=== PATIENT | female | born 1975 | race Caucasian/White ===

== ENCOUNTER 2016-08-06 13:58 | Emergency (ER) | payer BC ==
[~2016-08-06] VITALS: Ht 162.6 cm; Wt 77.1 kg
[~2016-08-06 13:58] MED LIST: DIAZ-345 PO; HYDR1TAB66 PO; LEVO20CA PO; NATURE-THROID PO
[2016-08-06] MEDS ORDERED: ESCI20TA45 (14:21)
[2016-08-06 14:30] LABS: BASOPHILS % (AUTO) 1 % (0-10); EOSINOPHILS # (AUTO) 0.1 10^3/uL (0.0-0.3); EOSINOPHILS % (AUTO) 1 % (0-10); LYMPHOCYTES # (AUTO) 2.1 X 10^3 (1.0-4.0); LYMPHOCYTES % (AUTO) 30 % (12-44); MEAN CORPUSCULAR HEMOGLOBIN 30 PG (25-34); MEAN CORPUSCULAR HGB CONC 34 G/DL (32-36); MEAN CORPUSCULAR VOLUME 87 FL (80-99); MEAN PLATELET VOLUME 11.5 FL (7.4-10.4); MONOCYTES # (AUTO) 0.8 X 10^3 (0.0-1.0); MONOCYTES % (AUTO) 11 % (0-12); NEUTROPHILS % (AUTO) 57 % (42-75); PLATELET COUNT 215 10^3/uL (130-400); RED BLOOD COUNT 4.59 10^6/uL (4.35-5.85); RED CELL DISTRIBUTION WIDTH 12.5 % (10.0-14.5)
[2016-08-06 14:41] LABS: ALANINE AMINOTRANSFERASE 34 U/L (0-55); ALBUMIN 4.5 GM/DL (3.2-4.5); ANION GAP 10 MMOL/L (5-14); ASPARTATE AMINO TRANSFERASE 27 U/L (5-34); BILIRUBIN,TOTAL 0.7 MG/DL (0.1-1.0); BLOOD UREA NITROGEN 11 MG/DL (7-18); BUN/CREATININE RATIO 15 (0-20); CALCIUM 9.2 MG/DL (8.5-10.1); CARBON DIOXIDE 25 MMOL/L (21-32); CHLORIDE 104 MMOL/L (98-107); CREATININE SERUM 0.73 MG/DL (0.60-1.30); GFR ESTIMATED > 60; GLUCOSE 85 MG/DL (70-105); HEMOLYSIS 8 (-100-29); ICTERUS 0.7 (-100-1.9); LIPEMIA 9 (-100-49); POTASSIUM 4.2 MMOL/L (3.6-5.0); SODIUM 139 MMOL/L (135-145); TOTAL PROTEIN 7.3 GM/DL (6.4-8.2); hs C REACTIVE PROTEIN 0.02 MG/DL (0.00-0.50)
[2016-08-06] MEDS ORDERED: NS IV 1000 ML 1,000 ML IV ONE (14:50)
--- NOTE | 2016-08-06 14:56 | ED GU-Female ---
General Chief Complaint: Abdominal/GI Problems Stated Complaint: R SIDE PAIN/BACK PAIN Nursing Triage Note: SENT OVER FROM URGENT CARE. COMPLAINS OF RLQ PAIN STARTING YESTERDAY. Nursing Sepsis Screen: No Definite Risk Source: patient, spouse Exam Limitations: no limitations History of Present Illness Time seen by provider: 14:36 Initial Comments 40-year-old female patient presents to the emergency department with complaints of periumbilical and left lower quadrant pain beginning yesterday. Reports last night pain localized to the right lower quadrant. Does report poor appetite, but denies nausea or vomiting. States pain radiates into the low back bilaterally. Denies a history of kidney stones. Timing/Duration: yesterday, getting worse Severity/Quality: aching, sharp Location: LLQ, periumbilical Radiation: RLQ, back Activities at Onset: none Prior Genitourinary Problems: none Sexual [place] History: less than 2 months ago, single partner Modifying Factors: Worsens With Movement, Worsens With Palpation, Worsens With Other (standing upright, laughing) Allergies and Home Medications Allergies Coded Allergies: No Known Drug Allergies (Unverified , 07/15/13) Home Medications Diazepam 5 Mg Tablet, 5 EACH PO TID PRN, (Reported) Escitalopram Oxalate 20 Mg Tablet, #30 (Reported) Hyoscyamine Sulfate 0.125 Mg Tab.subl, 0.125 MG SL Q6H PRN for SPASMS, #14 Ref 0 Prescribed by: OWEN OCASIO on 08/06/161727 Ondansetron 8 Mg Tab.rapdis, 8 MG PO Q6H PRN for NAUSEA/VOMITING-1ST LINE, #10 Ref 0 Prescribed by: OWEN OCASIO on 08/06/168 Constitutional: chills, No fever Respiratory: No cough, No short of breath Cardiovascular: No chest pain, No syncope Gastrointestinal: RLQ, LLQ, abdominal pain, constipation, No diarrhea, loss of appetite, nausea, No vomiting Genitourinary: dysuria, denies frequency, denies flank pain, denies hematuria Musculoskeletal: back pain ((low back pain)) Skin: no symptoms reported Psychiatric/Neurological: No Symptoms Reported All Other Systemes Reviewed Negative Unless Noted: Yes (Negative excepted noted.) Past Jthewcw-Ipwfbc-Srubbo Hx Patient Social History Alcohol Use: Occasionally Uses Recreational Drug Use: No Smoking Status: Never a Smoker Recent Foreign Travel: No Contact w/Someone Who Travel: No Recent Infectious Disease Expo: No Surgeries HX Surgeries: Yes Surgeries: Gallbladder, Hysterectomy, Tonsillectomy Respiratory Hx Respiratory Disorders: No Cardiovascular Hx Cardiac Disorders: Yes Neurological Hx Neurological Disorders: No 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 System Hx 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 Disorders: No [employer] History: Hysterectomy Genitourinary Hx Genitourinary Disorders: No Gastrointestinal Hx Gastrointestinal Disorders: No Gastrointestinal Disorders: Chronic Constipation, Hemorrhoids Musculoskeletal Hx Musculoskeletal Disorders: No Endocrine Hx Endocrine Disorders: Yes (THYROID NODULES) HEENT HX ENT Disorders: No Cancer Hx Cancer: No Psychosocial Hx Psychiatric Problems: Yes Behavioral Health Disorders: Anxiety, Depression Reviewed Nursing Assessment Reviewed/Agree w Nursing PMH: Yes Family Medical History Significant Family History: No Pertinent Family Hx Physical Exam Vital Signs Vital Sign - Last 12Hours 08/06/16 14:00 Temp 98.0 Pulse 63 Resp 18 B/P (MAP) 134/94 Pulse Ox 95 Capillary Refill : Less Than 3 Seconds General Appearance: WD/WN, no apparent distress HEENT: PERRL/EOMI, pharynx normal Neck: supple, normal inspection Cardiovascular: regular rate, rhythm, no murmur Respiratory: lungs clear, normal breath sounds, no respiratory distress Gastrointestinal: normal bowel sounds, soft, no organomegaly, No distended, guarding (BLQ), rebound (RLQ), tenderness (BLQ with greatest tenderness in the RLQ), other ((+) psoas sign, rebound tenderness, and rovsing sign.) Back: normal inspection, no CVA tenderness Extremities: normal capillary refill Neurologic/Psychiatric: alert, normal mood/affect, oriented x 3 Skin: normal color, warm/dry Progress/Results/Core Measures Results/Orders Lab Results Laboratory Tests Test 08/06/16 14:10 08/06/16 14:55 Range/Units White Blood Count 7.0 4.3-11.0 10^3/uL Red Blood Count 4.59 4.35-5.85 10^6/uL Hemoglobin 13.6 11.5-16.0 G/DL Hematocrit 40 35-52 % Mean Corpuscular Volume 87 80-99 FL Mean Corpuscular Hemoglobin 30 25-34 PG Mean Corpuscular Hemoglobin Concent 34 32-36 G/DL Red Cell Distribution Width 12.5 10.0-14.5 % Platelet Count 215 130-400 10^3/uL Mean Platelet Volume 11.5 H 7.4-10.4 FL Neutrophils (%) (Auto) 57 42-75 % Lymphocytes (%) (Auto) 30 12-44 % Monocytes (%) (Auto) 11 0-12 % Eosinophils (%) (Auto) 1 0-10 % Basophils (%) (Auto) 1 0-10 % Neutrophils # (Auto) 4.0 1.8-7.8 X 10^3 Lymphocytes # (Auto) 2.1 1.0-4.0 X 10^3 Monocytes # (Auto) 0.8 0.0-1.0 X 10^3 Eosinophils # (Auto) 0.1 0.0-0.3 10^3/uL Basophils # (Auto) 0.0 0.0-0.1 10^3/uL Sodium Level 139 135-145 MMOL/L Potassium Level 4.2 3.6-5.0 MMOL/L Chloride Level 104 98-107 MMOL/L Carbon Dioxide Level 25 21-32 MMOL/L Anion Gap 10 5-14 MMOL/L Blood Urea Nitrogen 11 7-18 MG/DL Creatinine 0.73 0.60-1.30 MG/DL Estimat Glomerular Filtration Rate > 60 BUN/Creatinine Ratio 15 0-20 Glucose Level 85 70-105 MG/DL Calcium Level 9.2 8.5-10.1 MG/DL Total Bilirubin 0.7 0.1-1.0 MG/DL Aspartate Amino Transf (AST/SGOT) 27 5-34 U/L Alanine Aminotransferase (ALT/SGPT) 34 0-55 U/L Alkaline Phosphatase 59 40-136 U/L C-Reactive Protein High Sensitivity 0.02 0.00-0.50 MG/DL Total Protein 7.3 6.4-8.2 GM/DL Albumin 4.5 3.2-4.5 GM/DL Urine Color YELLOW Urine Clarity CLEAR Urine pH 6 5-9 Urine Specific [place] 1.010 L 1.016-1.022 Urine Protein NEGATIVE NEGATIVE Urine Glucose (UA) NEGATIVE NEGATIVE Urine Ketones NEGATIVE NEGATIVE Urine Nitrite NEGATIVE NEGATIVE Urine Bilirubin NEGATIVE NEGATIVE Urine Urobilinogen NORMAL NORMAL MG/DL Urine Leukocyte Esterase NEGATIVE NEGATIVE Urine RBC (Auto) NEGATIVE NEGATIVE Urine RBC NONE /HPF Urine WBC NONE /HPF Urine Squamous Epithelial Cells 2-5 /HPF Urine Crystals NONE /LPF Urine Bacteria NEGATIVE /HPF Urine Casts NONE /LPF Urine Mucus NEGATIVE /LPF Urine Culture Indicated NO My Orders Orders - OWEN OCASIO Saline Lock/Iv-Start (08/06/16 14:24) Cbc With Automated Diff (08/06/16 14:24) Comprehensive Metabolic Panel (08/06/16 14:24) Hs C Reactive Protein (08/06/16 14:24) Ua Culture If Indicated (08/06/16 14:24) Ct Abd/Pelv W (Appendicitis) (08/06/16 14:50) Ondansetron Injection (Zofran Injectio (08/06/16 15:00) Ns Iv 1000 Ml (Sodium Chloride 0.9%) (08/06/16 14:50) Iohexol Injection (Omnipaque 350 Mg/Ml 1 (08/06/16 15:00) Ns (Ivpb) (Sodium Chloride 0.9% Ivpb Bag (08/06/16 15:00) Medications Given in ED Vital Signs/I&O Vital Sign - Last 12Hours 08/06/16 17:39 Temp 98.7 Pulse 62 Resp 16 Pulse Ox 98 Blood Pressure Mean: 107 Diagnostic Imaging Diagonstic Imaging: CT Plain Films/CT/US/NM/MRI: abdomen, pelvis Comments FINDINGS: The appendix was visualized and is not abnormally thickened. There is no distortion of the periappendiceal fat to suggest appendicitis either. There is a fair amount of fecal material in the AC and transverse colon and there is a large collection of fecal material in the rectosigmoid portion of the colon. The uterus is surgically absent, as is the gallbladder. The urinary bladder is grossly unremarkable. The liver, spleen, pancreas, adrenals, kidneys, aorta and inferior vena cava are unremarkable for an acute abnormality. The stomach is partially filled with fluid and consequently difficult to assess. The lung bases are clear. The bone windows shows no evidence for a fracture or for a destructive lesion. There is a benign appearing 1.1 cm cyst along the lateral aspect of the junction of the left femoral head and neck. There is mild curvature of the lumbar spine, convexed to the left. IMPRESSION: 1. There is no evidence for an acute abnormality of the abdomen or pelvis. In particular, there is no sign of appendicitis. 2. There is a fair amount of fecal material in the ascending and transverse colon and a large collection of fecal material in the rectosigmoid portion of the colon. 3. The uterus and gallbladder are surgically absent. Dictated on workstation # [id number] Reviewed: Reviewed by Me (radiology report reviewed by me.) Departure Communication Progress Notes Laboratory and diagnostic findings discussed with the patient. Patient reports feeling better with medications and IV fluids. Plan for discharge to home. Patient instructed to follow-up with her primary care physician for recheck. Return precautions were discussed with the patient as described in the discharge instructions of this report. Patient voices understanding and agrees with the treatment plan. Impression Impression: Primary Impression: Abdominal pain Qualified Codes: R10.30 - Lower abdominal pain, unspecified Additional Impression: Constipation Qualified Codes: K59.00 - Constipation, unspecified Disposition: HOME, SELF-CARE Condition: Improved Departure-Patient Inst. Decision time for Depature: 17:26 Referrals: MELANIE ACOSTA BRETT D DO JENKINS, XAVIER M MD KIDO, TAKAAKI MD MANZER, JONATHAN L MD (PCP/Family) Primary Care Physician Patient Instructions: Constipation, Adult (DC), Acute Abdomen (Belly Pain), Adult (DC) Add. Discharge Instructions: All discharge instructions reviewed with patient and/or family. Voiced understanding. Medications as instructed. Colace stool softener over-the- counter as directed. Metamucil, Citrucel, or Benefiber [id number] as directed. MiraLAX 17 g mixed with 8 ounces of fluids by mouth twice daily for 3 days then at bedtime as needed for constipation. Drink plenty of fluids. Follow-up with your family practitioner for recheck and possible need for outpatient colonoscopy. Call for appointment time. Return to the emergency department for worsened symptoms or any other concerns. Scripts Ondansetron (Ondansetron Odt) 8 Mg Tab.rapdis 8 MG PO Q6H Y for NAUSEA/VOMITING-1ST LINE, #10 TAB 0 Refills Prov: OWEN OCASIO 08/06/16 Hyoscyamine Sulfate (Levsin-Sl) 0.125 Mg Tab.subl 0.125 MG SL Q6H Y for SPASMS, #14 TAB 0 Refills Prov: OWEN OCASIO 08/06/16 OWEN OCASIO Aug 06, 2016 14:56
[2016-08-06] MEDS ORDERED: NS 100 ML (IVPB) BAG IV ONE (15:00)
[2016-08-06] MEDS ORDERED: ONDANSETRON 4 MG/2 ML (SDV) Z0FRAN IVP ONE (15:00)
[2016-08-06] MEDS ORDERED: IOHEXOL 350 MG/ML 100 ML (OMNIPAQUE 350) VIAL IV ONE (15:00)
[2016-08-06 15:05] LABS: BILIRUBIN,URINE NEGATIVE (NEGATIVE); KETONES,URINE NEGATIVE (NEGATIVE); LEUKOCYTE ESTERASE ,URINE NEGATIVE (NEGATIVE); NITRITE,URINE NEGATIVE (NEGATIVE); PH,URINE 6 (5-9); PROTEIN,URINE NEGATIVE (NEGATIVE); UROBILINOGEN,URINE NORMAL (NORMAL)
--- NOTE | 2016-08-06 15:49 | Diagnostic Imaging Report ---
PROCEDURE: CT abdomen and pelvis with contrast, rule out appendicitis. TECHNIQUE: Multiple contiguous axial images were obtained through the abdomen and pelvis after the administration of intravenous contrast. INDICATION: Right-sided abdominal pain. COMPARISON: There are no prior studies available for comparison. FINDINGS: The appendix was visualized and is not abnormally thickened. There is no distortion of the periappendiceal fat to suggest appendicitis either. There is a fair amount of fecal material in the AC and transverse colon and there is a large collection of fecal material in the rectosigmoid portion of the colon. The uterus is surgically absent, as is the gallbladder. The urinary bladder is grossly unremarkable. The liver, spleen, pancreas, adrenals, kidneys, aorta and inferior vena cava are unremarkable for an acute abnormality. The stomach is partially filled with fluid and consequently difficult to assess. The lung bases are clear. The bone windows shows no evidence for a fracture or for a destructive lesion. There is a benign appearing 1.1 cm cyst along the lateral aspect of the junction of the left femoral head and neck. There is mild curvature of the lumbar spine, convexed to the left. IMPRESSION: 1. There is no evidence for an acute abnormality of the abdomen or pelvis. In particular, there is no sign of appendicitis. 2. There is a fair amount of fecal material in the ascending and transverse colon and a large collection of fecal material in the rectosigmoid portion of the colon. 3. The uterus and gallbladder are surgically absent. Dictated by: Dictated on workstation # [id number]
[2016-08-06] MEDS ORDERED: HYOS0.1283 SL (17:28)
[2016-08-06] MEDS ORDERED: ONDA8TAB13 PO (17:28)
[2016-08-06 17:39] VITALS: BP 129/89
== END 2016-08-06 17:39 | disposition home or self-care (01) ==
LOC: EDUNIT# 13:58 → ER 14:00
DX: K59.09 Other constipation (principal); Z87.19 Personal history of other diseases of the digestive system; Z98.890 Other specified postprocedural states
CPT/HCPCS: 36415; 74177; 80053; 81000; 85025; 86141

== ENCOUNTER 2016-08-22 05:42 | Outpatient (CLI) | payer BC ==
[~2016-08-22] VITALS: Ht 162.6 cm; Wt 77.1 kg
[~2016-08-22 05:42] MED LIST changes: +ESCI20TA45 PO; +HYOS0.1283 SL; +ONDA8TAB13 PO
== END 2016-08-22 11:05 ==
LOC: PREOP 05:42
PROVIDERS: ATTEND Surgery
DX: Z01.818 Encounter for other preprocedural examination (principal); K92.1 Melena

== ENCOUNTER 2016-08-25 07:23 | Day surgery (SDC) | payer BC ==
[~2016-08-25] VITALS: Ht 162.6 cm; Wt 77.1 kg
--- OUTSIDE RECORDS SUMMARY | 2016-08-25 07:28 | XMS REPORT | Continuity of Care Document ---
Author Author [facility] Address Unknown Phone Unavailable Allergies Active Description Code Type Severity Reaction Onset Reported/Identified Relationship to Patient Clinical Status Yes No Known Drug Allergies [id number] Drug Allergy Unknown N/ A 07/15/2013 Medications Problems Date Dx Coded Attending Type Code Diagnosis Diagnosed By 08/27/2007 296.89 Mo Bipolar Ii 08/27/2007 BALA BIRD APRN 296.89 Mo Bipolar Ii 08/27/2007 296.89 Mo Bipolar Ii 08/27/2007 BETH RIVERA DO 296.89 Mo Bipolar Ii 08/27/2007 BETH RIVERA DO 296.89 Mo Bipolar Ii 08/27/2007 BETH RIVERA DO 296.89 Mo Bipolar Ii 08/29/2007 300.00 Anxiety 08/29/2007 BALA BIRD APRN 300.00 Anxiety 08/29/2007 300.00 Anxiety 08/29/2007 BETH RIVERA DO K 300.00 Anxiety 08/29/2007 BETH RIVERA DO K 300.00 Anxiety 08/29/2007 RICKEY RIVERA DOA K 300.00 Anxiety 10/15/2007 465.9 Upper Respiratory Infection 10/15/2007 BALA BIRD APRN 465.9 Upper Respiratory Infection 10/15/2007 465.9 Upper Respiratory Infection 10/15/2007 BETH RIVERA DO K 465.9 Upper Respiratory Infection 10/15/2007 RICKEY RIVERA DOA K 465.9 Upper Respiratory Infection 10/15/2007 RICKEY RIVERA DOA K 465.9 Upper Respiratory Infection 11/16/2007 278.02 OVERWEIGHT 11/16/2007 296.90 EPISODIC MOOD DISORDERS 11/16/2007 BALA BIRD APRN 278.02 OVERWEIGHT 11/16/2007 BALA BIRD APRN 296.90 EPISODIC MOOD DISORDERS 11/16/2007 278.02 OVERWEIGHT 11/16/2007 296.90 EPISODIC MOOD DISORDERS 11/16/2007 BETH RIVERA DO 278.02 OVERWEIGHT 11/16/2007 RIVERA DO, BETH K 296.90 EPISODIC MOOD DISORDERS 11/16/2007 RIVERA DO, BETH K 278.02 OVERWEIGHT 11/16/2007 RIVERA DO, BETH K 296.90 EPISODIC MOOD DISORDERS 11/16/2007 RIVERA DO, BETH K 278.02 OVERWEIGHT 11/16/2007 RIVERA DO, BETH K 296.90 EPISODIC MOOD DISORDERS 12/13/2007 477.9 ALLERGIC RHINITIS 12/13/2007 PELON BALA TRACEY L 477.9 ALLERGIC RHINITIS 12/13/2007 477.9 ALLERGIC RHINITIS 12/13/2007 RIVERA DO, BETH K 477.9 ALLERGIC RHINITIS 12/13/2007 RIVERA DO, BETH K 477.9 ALLERGIC RHINITIS 12/13/2007 RIVERA DO, BETH K 477.9 ALLERGIC RHINITIS 12/20/2007 070.54 Hepatitis C Chronic 12/20/2007 780.79 FATIGUE 12/20/2007 995.20 Unspecified Adverse Effect Of Unspecified Drug Medicinal And Biological Substance 12/20/2007 BALA BIRD APRN L 070.54 Hepatitis C Chronic 12/20/2007 BALA BIRD APRN L 780.79 FATIGUE 12/20/2007 TWINBALA MONTOYA APRN L 995.20 Unspecified Adverse Effect Of Unspecified Drug Medicinal And Biological Substance 12/20/2007 070.54 Hepatitis C Chronic 12/20/2007 780.79 FATIGUE 12/20/2007 995.20 Unspecified Adverse Effect Of Unspecified Drug Medicinal And Biological Substance 12/20/2007 RIVERA DO, BETH K 070.54 Hepatitis C Chronic 12/20/2007 RIVERA DO, BETH K 780.79 FATIGUE 12/20/2007 RIVERA DO, BETH K 995.20 Unspecified Adverse Effect Of Unspecified Drug Medicinal And Biological Substance 12/20/2007 RIVERA DO, BETH K 070.54 Hepatitis C Chronic 12/20/2007 RIVERA DO, BETH K 780.79 FATIGUE 12/20/2007 RIVERA DO, BETH K 995.20 Unspecified Adverse Effect Of Unspecified Drug Medicinal And Biological Substance 12/20/2007 RIVERA DO, BETH K 070.54 Hepatitis C Chronic 12/20/2007 RIVERA DO, BETH K 780.79 FATIGUE 12/20/2007 RIVERA DO, BETH K 995.20 Unspecified Adverse Effect Of Unspecified Drug Medicinal And Biological Substance 01/07/2008 599.0 Urinary Tract Infection 01/07/2008 PELON GARCIAFlori BALA L 599.0 Urinary Tract Infection 01/07/2008 599.0 Urinary Tract Infection 01/07/2008 RICKEY RIVERA DOA K 599.0 Urinary Tract Infection 01/07/2008 RIVERA DO BETH K 599.0 Urinary Tract Infection 01/07/2008 RIVERA DO BETH K 599.0 Urinary Tract Infection 01/22/2008 296.80 MO BIPOLAR NOS 01/22/2008 V58.69 taking female hormones - long-term tamoxifen use 01/22/2008 PELON GARCIAFlori BALA L 296.80 MO BIPOLAR NOS 01/22/2008 PELON GARCIAFlori BALA L V58.69 taking female hormones - long-term tamoxifen use 01/22/2008 296.80 MO BIPOLAR NOS 01/22/2008 V58.69 taking female hormones - long-term tamoxifen use 01/22/2008 NICOLE MCKEE BETH K 296.80 MO BIPOLAR NOS 01/22/2008 NICOLE MCKEE BETH K V58.69 taking female hormones - long-term tamoxifen use 01/22/2008 RIVERA DO BETH K 296.80 MO BIPOLAR NOS 01/22/2008 RIVERA DO BETH K V58.69 taking female hormones - long-term tamoxifen use 01/22/2008 NICOLE DO BETH K 296.80 MO BIPOLAR NOS 01/22/2008 RIVERA DO BETH K V58.69 taking female hormones - long-term tamoxifen use 03/03/2008 300.4 DESPONDENCY 03/03/2008 BALA BIRD APRN L 300.4 DESPONDENCY 03/03/2008 300.4 DESPONDENCY 03/03/2008 RIVERA DO BETH K 300.4 DESPONDENCY 03/03/2008 RIVERA DO BETH K 300.4 DESPONDENCY 03/03/2008 RIVERA DO BETH K 300.4 DESPONDENCY 03/12/2008 307.42 INSOMNIA DUE TO STRESS 03/12/2008 BALA BIRD APRN L 307.42 INSOMNIA DUE TO STRESS 03/12/2008 307.42 INSOMNIA DUE TO STRESS 03/12/2008 RICKEY RIVERA DOA K 307.42 INSOMNIA DUE TO STRESS 03/12/2008 RICKEY RIVERA DOA K 307.42 INSOMNIA DUE TO STRESS 03/12/2008 NICOLE MCKEE BETH K 307.42 INSOMNIA DUE TO STRESS 04/03/2008 616.10 Vaginitis 04/03/2008 PELON BALA TRACEY 616.10 Vaginitis 04/03/2008 616.10 Vaginitis 04/03/2008 RIVERA DO BETH K 616.10 Vaginitis 04/03/2008 RIVERA DO, BETH K 616.10 Vaginitis 04/03/2008 RIVERA DO, BETH K 616.10 Vaginitis 05/14/2008 301.13 CYCLOTHYMIC DISORDER 05/14/2008 PELON BALA TRACEY 301.13 CYCLOTHYMIC DISORDER 05/14/2008 301.13 CYCLOTHYMIC DISORDER 05/14/2008 RIVERA DO BETH K 301.13 CYCLOTHYMIC DISORDER 05/14/2008 RIVERA DO BETH K 301.13 CYCLOTHYMIC DISORDER 05/14/2008 RIVERA DO BETH K 301.13 CYCLOTHYMIC DISORDER 05/19/2008 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 05/19/2008 PELON BALA TRACEY 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 05/19/2008 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 05/19/2008 RIVERA DO BETH K 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 05/19/2008 RIVERA DO, BETH K 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 05/19/2008 RIVERA DO, BETH K 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 07/30/2008 627.2 Menopause Symptomatic 07/30/2008 627.9 Menopausal Disorder 07/30/2008 724.2 LUMBAGO 07/30/2008 BALA BIRD APRN 627.2 Menopause Symptomatic 07/30/2008 BALA BIRD APRN 627.9 Menopausal Disorder 07/30/2008 TWINBALA MONTOYA APRN 724.2 LUMBAGO 07/30/2008 627.2 Menopause Symptomatic 07/30/2008 627.9 Menopausal Disorder 07/30/2008 724.2 LUMBAGO 07/30/2008 RIVERA DO, BETH K 627.2 Menopause Symptomatic 07/30/2008 RIVERA DO, BETH K 627.9 Menopausal Disorder 07/30/2008 RIVERA DO, BETH K 724.2 LUMBAGO 07/30/2008 RIVERA DO, BETH K 627.2 Menopause Symptomatic 07/30/2008 RIVERA DO, BETH K 627.9 Menopausal Disorder 07/30/2008 RIVERA DO, BETH K 724.2 LUMBAGO 07/30/2008 RIVERA DO, BETH K 627.2 Menopause Symptomatic 07/30/2008 RIVERA DO, BETH K 627.9 Menopausal Disorder 07/30/2008 RIVERA DO, BETH K 724.2 LUMBAGO 10/08/2008 719.46 joint pain, localized in the knee 10/08/2008 BALA BIRD APRN 719.46 joint pain, localized in the knee 10/08/2008 719.46 joint pain, localized in the knee 10/08/2008 RIVERA DO, BETH K 719.46 joint pain, localized in the knee 10/08/2008 RIVERA DO, BETH K 719.46 joint pain, localized in the knee 10/08/2008 RIVERA DO, BETH K 719.46 joint pain, localized in the knee 12/06/2008 388.71 Otogenic Pain 12/06/2008 BALA BIRD APRN 388.71 Otogenic Pain 12/06/2008 388.71 Otogenic Pain 12/06/2008 NICOLE MCKEE BETH K 388.71 Otogenic Pain 12/06/2008 RIVERA DO, BETH K 388.71 Otogenic Pain 12/06/2008 RIVERA DO, BETH K 388.71 Otogenic Pain 01/23/2009 V07.4 HORMONE REPLACEMENT THERAPY (POSTMENOPAUSAL) 01/23/2009 BALA BIRD APRN V07.4 HORMONE REPLACEMENT THERAPY ( POSTMENOPAUSAL) 01/23/2009 V07.4 HORMONE REPLACEMENT THERAPY (POSTMENOPAUSAL) 01/23/2009 RICKEY RIVERA DOA K V07.4 HORMONE REPLACEMENT THERAPY (POSTMENOPAUSAL) 01/23/2009 RIVERA DO BETH K V07.4 HORMONE REPLACEMENT THERAPY (POSTMENOPAUSAL) 01/23/2009 RIVERA , BETH K V07.4 HORMONE REPLACEMENT THERAPY (POSTMENOPAUSAL) 03/12/2009 799.81 DECREASED LIBIDO 03/12/2009 BALA BIRD APRN 799.81 DECREASED LIBIDO 03/12/2009 799.81 DECREASED LIBIDO 03/12/2009 RICKEY RIVERA DOA K 799.81 DECREASED LIBIDO 03/12/2009 RIVERA RICKEY MCKEEA K 799.81 DECREASED LIBIDO 03/12/2009 NICOLE MCKEE BETH K 799.81 DECREASED LIBIDO 05/28/2009 251.2 Hypoglycemia 05/28/2009 307.81 Tension Headache 05/28/2009 PELON GARCIAFlori BALA L 251.2 Hypoglycemia 05/28/2009 PELON GARCIAFlori BALA L 307.81 Tension Headache 05/28/2009 251.2 Hypoglycemia 05/28/2009 307.81 Tension Headache 05/28/2009 RIVERA DO, BETH K 251.2 Hypoglycemia 05/28/2009 RIVERA DO, BETH K 307.81 Tension Headache 05/28/2009 RIVERA DO, BETH K 251.2 Hypoglycemia 05/28/2009 RIVERA DO, BETH K 307.81 Tension Headache 05/28/2009 RIVERA DO, BETH K 251.2 Hypoglycemia 05/28/2009 RIVERA DO, BETH K 307.81 Tension Headache 07/29/2010 611.71 Breast Pain 07/29/2010 V16.3 FAM HX CANCER, BREAST 07/29/2010 TWINBALA MONTOYA APRN 611.71 Breast Pain 07/29/2010 TWINBALA MONTOYA APRN V16.3 FAM HX CANCER, BREAST 07/29/2010 611.71 Breast Pain 07/29/2010 V16.3 FAM HX CANCER, BREAST 07/29/2010 RIVERA DO, BETH K 611.71 Breast Pain 07/29/2010 RIVERA DO, BETH K V16.3 FAM HX CANCER, BREAST 07/29/2010 RIVERA DO, BETH K 611.71 Breast Pain 07/29/2010 RIVERA DO, BETH K V16.3 FAM HX CANCER, BREAST 07/29/2010 RIVERA DO, BETH K 611.71 Breast Pain 07/29/2010 RIVERA DO, BETH K V16.3 FAM HX CANCER, BREAST 05/26/2011 V65.3 Dietary Counseling Pertaining To Obesity 05/26/2011 V69.0 being sedentary 05/26/2011 BALA BIRD APRN V65.3 Dietary Counseling Pertaining To Obesity 05/26/2011 BALA BIRD APRN V69.0 being sedentary 05/26/2011 V65.3 Dietary Counseling Pertaining To Obesity 05/26/2011 V69.0 being sedentary 05/26/2011 RIVERA DO, BETH K V65.3 Dietary Counseling Pertaining To Obesity 05/26/2011 RIVERA DO, BETH K V69.0 being sedentary 05/26/2011 RIVERA DO, BETH K V65.3 Dietary Counseling Pertaining To Obesity 05/26/2011 RIVERA DO, BETH K V69.0 being sedentary 05/26/2011 RIVERA DO, BETH K V65.3 Dietary Counseling Pertaining To Obesity 05/26/2011 RIVERA DO, BETH K V69.0 being sedentary 08/09/2011 311 DEPRESSION 08/09/2011 338.29 CHRONIC PAIN 08/09/2011 401.9 ESSENTIAL HYPERTENSION 08/09/2011 EATLINDSAY SECURITY THREAT ANALYSTBALA Ruby L 311 DEPRESSION 08/09/2011 EATON SECURITY THREAT ANALYST, BALA L 338.29 CHRONIC PAIN 08/09/2011 EATON SECURITY THREAT ANALYST, BALA L 401.9 ESSENTIAL HYPERTENSION 08/09/2011 311 DEPRESSION 08/09/2011 338.29 CHRONIC PAIN 08/09/2011 401.9 ESSENTIAL HYPERTENSION 08/09/2011 RIVERA DO, BETH K 311 DEPRESSION 08/09/2011 RIVERA DO, BETH K 338.29 CHRONIC PAIN 08/09/2011 RIVERA DO, BETH K 401.9 ESSENTIAL HYPERTENSION 08/09/2011 RIVERA DO, BETH K 311 DEPRESSION 08/09/2011 RIVERA DO, BETH K 338.29 CHRONIC PAIN 08/09/2011 RIVERA DO, BETH K 401.9 ESSENTIAL HYPERTENSION 08/09/2011 RIVERA DO, BETH K 311 DEPRESSION 08/09/2011 RIVERA DO, BETH K 338.29 CHRONIC PAIN 08/09/2011 RIVERA DO, BETH K 401.9 ESSENTIAL HYPERTENSION 09/02/2011 455.6 Hemorrhoids Nos 09/02/2011 578.1 Hematochezia 09/02/2011 V72.31 Industrial Technologist Exam, Routine 09/02/2011 BALA BIRD APRN L 455.6 Hemorrhoids Nos 09/02/2011 EATBALA MONTOYA APRN L 578.1 Hematochezia 09/02/2011 BALA BIRD APRN L V72.31 Industrial Technologist Exam, Routine 09/02/2011 455.6 Hemorrhoids Nos 09/02/2011 578.1 Hematochezia 09/02/2011 V72.31 Industrial Technologist Exam, Routine 09/02/2011 RIVERA DO, BETH K 455.6 Hemorrhoids Nos 09/02/2011 RIVERA DO, BETH K 578.1 Hematochezia 09/02/2011 RIVERA DO, BETH K V72.31 Industrial Technologist Exam, Routine 09/02/2011 RIVERA DO, BETH K 455.6 Hemorrhoids Nos 09/02/2011 RIVERA DO, BETH K 578.1 Hematochezia 09/02/2011 RIVERA DO, BETH K V72.31 Industrial Technologist Exam, Routine 09/02/2011 RIVERA DO, BETH K 455.6 Hemorrhoids Nos 09/02/2011 RIVERA DO, BETH K 578.1 Hematochezia 09/02/2011 RIVERA DO, BETH K V72.31 Industrial Technologist Exam, Routine 10/13/2011 NODX NO DIAGNOSIS 10/13/2011 BALA BIRD APRN NODX NO DIAGNOSIS 10/13/2011 NODX NO DIAGNOSIS 10/13/2011 RIVERA DO, BETH K NODX NO DIAGNOSIS 10/13/2011 RIVERA DO, BETH K NODX NO DIAGNOSIS 10/13/2011 RIVERA DO, BETH K NODX NO DIAGNOSIS 01/18/2012 796.2 ELEVATED BLOOD PRESSURE READING WITHOUT DIAGNOSIS OF HYPERTENSION 01/18/2012 BALA BIRD APRN 796.2 ELEVATED BLOOD PRESSURE READING WITHOUT DIAGNOSIS OF HYPERTENSION 01/18/2012 796.2 ELEVATED BLOOD PRESSURE READING WITHOUT DIAGNOSIS OF HYPERTENSION 01/18/2012 RIVERA DO, BETH K 796.2 ELEVATED BLOOD PRESSURE READING WITHOUT DIAGNOSIS OF HYPERTENSION 01/18/2012 RIVERA DO, BETH K 796.2 ELEVATED BLOOD PRESSURE READING WITHOUT DIAGNOSIS OF HYPERTENSION 01/18/2012 RIVERA DO, BETH K 796.2 ELEVATED BLOOD PRESSURE READING WITHOUT DIAGNOSIS OF HYPERTENSION 05/03/2012 372.30 CONJUNCTIVITIS UNSPECIFIED 05/03/2012 RIVERA DO, BETH K 372.30 CONJUNCTIVITIS UNSPECIFIED 05/03/2012 RIVERA DO, BETH K 372.30 CONJUNCTIVITIS UNSPECIFIED 05/03/2012 RIVERA DO, BEHT K 372.30 CONJUNCTIVITIS UNSPECIFIED 02/08/2013 RIVERA DO, BETH K 241.0 NONTOXIC UNINODULAR GOITER 02/08/2013 RIVERA DO, BETH K 799.24 EMOTIONAL LABILITY 02/08/2013 RIVERA DO, BETH K 241.0 NONTOXIC UNINODULAR GOITER 02/08/2013 RIVERA DO, BETH K 799.24 EMOTIONAL LABILITY 03/28/2013 RIVERA DO, BETH K 268.9 VITAMIN D DEFICIENCY 07/15/2013 Ot 300.00 ANXIETY STATE NOS 07/15/2013 Ot 786.05 SHORTNESS OF BREATH 08/10/2013 MACIEJ BLEVINS SECURITY THREAT ANALYST Ot 311 DEPRESSIVE DISORDER NEC 08/10/2013 MACIEJ BLEVINS APRN Ot 780.79 OTH MALAISE FATIGUE 08/06/2016 NINFA GALICIA OWEN Shawanda Ot K59.09 OTHER CONSTIPATION 08/06/2016 NINFA GALICIA OWEN L Ot R10.31 RIGHT LOWER QUADRANT PAIN 08/06/2016 OWEN ADORNO Ot Z87.19 PERSONAL HISTORY OF OTHER DISEASES OF TH 08/06/2016 NINFA GALICIA OWEN Shawanda Ot Z98.890 OTHER SPECIFIED POSTPROCEDURAL STATES 08/09/2016 NINFA GALICIA OWEN L Ot K59.09 OTHER CONSTIPATION 08/09/2016 NINFA GALICIA OWEN L Ot R10.31 RIGHT LOWER QUADRANT PAIN 08/09/2016 NINFA GALICIA OWEN L Ot Z87.19 PERSONAL HISTORY OF OTHER DISEASES OF 08/09/2016 KRISTY ADORNOEN Shawanda Ot Z98.890 OTHER SPECIFIED POSTPROCEDURAL STATES Procedures Code Description Performed By Performed On BLOOD PRESSURE CHECK 10/13/2011 BLOOD PRESSURE CHECK 01/18/2012 71557 STREP A (IN-HOUSE) 02/09/2012 70584 NO CHARGE 2012 51208 THERAPUTIC INJ SQ/IM 02/08/2013 J3420 B12 VITAMIN INJECTION 02/08/2013 46488 ROUTINE VENIPUNCTURE 02/08/2013 41739 CMP 02/08/2013 81904 VITAMIN D 25-HYDROXY (D2,D3, TOTAL) 02/08/2013 85003 VIT B 12 2012 42749 CBC 02/08/2013 THYANA THYROID ANALYZER 02/08/2013 Results Test Result Range Complete blood count (CBC) with automated white blood cell (WBC) differential - 08/06/16 14:10 Blood leukocytes automated count (number/volume) 7.0 10*3/ uL 4.3-11.0 Blood erythrocytes automated count (number/volume) 4.59 10*6 /uL 4.35-5.85 Venous blood hemoglobin measurement (mass/volume) 13.6 g/dL 11.5-16.0 Blood hematocrit (volume fraction) 40 % 35-52 Automated erythrocyte mean corpuscular volume 87 [foz_us] 80-99 Automated erythrocyte mean corpuscular hemoglobin (mass per erythrocyte) 30 pg 25-34 Automated erythrocyte mean corpuscular hemoglobin concentration measurement ( mass/volume) 34 g/dL 32-36 Automated erythrocyte distribution width ratio 12.5 % 10.0-14.5 Automated blood platelet count (count/volume) 215 10*3/uL 130-400 Automated blood platelet mean volume measurement 11.5 [foz_ us] 7.4-10.4 Automated blood neutrophils/100 leukocytes 57 % 42-75 Automated blood lymphocytes/100 leukocytes 30 % 12-44 Blood monocytes/100 leukocytes 11 % 0-12 Automated blood eosinophils/100 leukocytes 1 % 0-10 Automated blood basophils/100 leukocytes 1 % 0-10 Blood neutrophils automated count (number/volume) 4.0 10*3 1.8-7.8 Blood lymphocytes automated count (number/volume) 2.1 10*3 1.0-4.0 Blood monocytes automated count (number/volume) 0.8 10*3 0.0-1.0 Automated eosinophil count 0.1 10*3/uL 0.0-0.3 Automated blood basophil count (count/volume) 0.0 10*3/uL 0.0-0.1 Comprehensive metabolic panel - 08/06/16 14:10 Serum or plasma sodium measurement (moles/volume) 139 mmol/ L 135-145 Serum or plasma potassium measurement (moles/volume) 4.2 mmol/L 3.6-5.0 Serum or plasma chloride measurement (moles/volume) 104 mmol /L 98-107 Carbon dioxide 25 mmol/L 21-32 Serum or plasma anion gap determination (moles/volume) 10 mmol/L 5-14 Serum or plasma urea nitrogen measurement (mass/volume) 11 mg/dL 7-18 Serum or plasma creatinine measurement (mass/volume) 0.73 mg /dL 0.60-1.30 Serum or plasma urea nitrogen/creatinine mass ratio 15 0-20 Serum or plasma creatinine measurement with calculation of estimated glomerular filtration rate > NRG Serum or plasma glucose measurement (mass/volume) 85 mg/dL 70-105 Serum or plasma calcium measurement (mass/volume) 9.2 mg/dL 8.5-10.1 Serum or plasma total bilirubin measurement (mass/volume) 0.7 mg/dL 0.1-1.0 Serum or plasma alkaline phosphatase measurement (enzymatic activity/volume) 59 U/L 40-136 Serum or plasma aspartate aminotransferase measurement (enzymatic activity/ volume) 27 U/L 5-34 Serum or plasma alanine aminotransferase measurement (enzymatic activity/volume ) 34 U/L 0-55 Serum or plasma protein measurement (mass/volume) 7.3 g/dL 6.4-8.2 Serum or plasma albumin measurement (mass/volume) 4.5 g/dL 3.2-4.5 Serum or plasma C reactive protein measurement (mass/volume) - 08/06/16 14:10 Serum or plasma C reactive protein measurement (mass/volume) 0.02 mg/dL 0.00-0.50 Complete urinalysis with reflex to culture - 08/06/16 14:55 Urine color determination YELLOW NRG Urine clarity determination CLEAR NRG Urine pH measurement by test strip 6 5- 9 Specific gravity of urine by test strip 1.010 1.016-1.022 Urine protein assay by test strip, semi-quantitative NEGATIVE NEGATIVE Urine glucose detection by automated test strip NEGATIVE NEGATIVE Erythrocytes detection in urine sediment by light microscopy NEGATIVE NEGATIVE Urine ketones detection by automated test strip NEGATIVE NEGATIVE Urine nitrite detection by test strip NEGATIVE NEGATIVE Urine total bilirubin detection by test strip NEGATIVE NEGATIVE Urine urobilinogen measurement by automated test strip (mass/volume) NORMAL NORMAL Urine leukocyte esterase detection by dipstick NEGATIVE NEGATIVE Automated urine sediment erythrocyte count by microscopy (number/high power field) NONE NRG Automated urine sediment leukocyte count by microscopy (number/high power field ) NONE NRG Bacteria detection in urine sediment by light microscopy NEGATIVE NRG Squamous epithelial cells detection in urine sediment by light microscopy 2-5 NRG Crystals detection in urine sediment by light microscopy NONE NRG Casts detection in urine sediment by light microscopy NONE NRG Mucus detection in urine sediment by light microscopy NEGATIVE NRG Complete urinalysis with reflex to culture NO NRG Encounters ACCT No. Visit Date/Time Discharge Status Pt. Type Provider Facility Loc./Unit Complaint [id number] 03/28/2013 14:16:00 03/28/2013 23: 59:59 [facility] Outpatient BETH RIVERA DO [id number] 02/08/2013 08:55:00 02/08/2013 23: 59:59 [facility] Outpatient BETH IRVERA DO [id number] 12/21/2012 15:45:00 12/21/2012 23: 59:59 [facility] Out[facility] BETH RIVERA DO [id number] 05/03/2012 11:46:00 05/03/2012 23: 59:59 [facility] Outpatient [id number] 02/09/2012 11:49:00 02/09/2012 23: 59:59 [facility] Outpatient BALA BIRD APRN [id number] 01/18/2012 15:00:00 01/18/2012 23: 59:59 [facility] Outpatient
[2016-08-25 07:40] VITALS: BP 111/76
[2016-08-25] MEDS ORDERED: MIDAZOLAM 2 MG/2 ML (VERSED) VIAL ONE (07:40)
[2016-08-25] MEDS ORDERED: proPOfol 200 MG/20 ML (DIPRIVAN) VIAL IV ONE (07:40)
[2016-08-25] MEDS ORDERED: LACTATED RINGERS 1,000 ML IV PRN (07:45)
--- NOTE | 2016-08-25 08:31 | Progress Note-Pre Operative ---
Pre-Operative Progress Note H&P Reviewed The H&P was reviewed, patient examined and no changes noted. Time Seen by Provider: 08:26 Date H&P Reviewed: Aug 25, 2016 Time H&P Reviewed: 08:29 Pre-Operative Diagnosis: Constipation, change in bowel habits, abdominal pain, blood in stool MELANIE ACOSTA DO Aug 25, 2016 08:31
[2016-08-25 08:45] VITALS: BP 119/74
--- NOTE | 2016-08-25 09:22 | Progress Note-Post Operative ---
Post-Operative Progess Note Surgeon (s)/Tax Professional (s) Surgeon MELANIE ACOSTA DO Tax Professional: none Pre-Operative Diagnosis Constipation, change in bowel habits, abdominal pain, blood in stool Post-Operative Diagnosis Same + rectal mass, pending pathology Procedure & Operative Findings Date of Procedure 08/25/16 Procedure Performed/Findings colonoscopy with cold bx Anesthesia Type IV sedation by SAUSAGE LINKER Estimated Blood Loss Estimated blood loss (mL): scant Specimens/Packing Specimens Removed rectal mass biopsy MELANIE ACOSTA DO Aug 25, 2016 09:22
--- NOTE | 2016-08-25 09:24 | Endoscopy Discharge Instruct ---
Endo Procedure/Findings Findings 1.: Internal Hemorrhoids Discharge Instructions - Activity: You might feel a little sleepy until tomorrow. This is due to the medicine you received to relax you. Until tomorrow, you should: NOT drive a car, operate machinery or power tools. NOT drink any alcoholic beverages. NOT make any important decisions or sign importortant papers. Do not return to work until tomorrow, unless otherwise instructed. Resume previous activities tomorrow. Diet: Start by taking liquids. If you tolerate liquids, advance to solid food. Make an appointment for one week, Instructions: 1.: Colonscopy in 10 years Notify Physician - If you experience excessive bleeding, unusual abdominal pain, fever, or chest pain, contact your doctor immediately. [phone] Follow-Up: - I have received and understand the above instructions and will call my doctor if I have any further questions. Patient Signature Date Nurse Signature Other (Relationship) MELANIE ACOSTA DO Aug 25, 2016 09:24
[2016-08-25 09:45] VITALS: BP 119/74
--- NOTE | 2016-08-25 09:56 | OPERATIVE REPORT ---
PROCEDURE PHYSICIAN: MELANIE ACOSTA DATE OF PROCEDURE: 08/25/2016 PREOPERATIVE DIAGNOSES: 1. Constipation . 2. Abdominal pain. 3. Diarrhea. 4. Rectal bleeding. POSTOPERATIVE DIAGNOSES: 1. Constipation. 2. Abdominal pain. 3. Diarrhea. 4. Rectal bleeding. 5. Questionable rectal mass. PROCEDURE: Colonoscopy with biopsy. SURGEON: Dr. Barbara FERRO ASSIST: None. ANESTHESIA: IV sedation by INFORMATICS PHARMACIST. SPECIMEN: Biopsy from rectal mass. BLOOD LOSS: Scant. FLUIDS: Per anesthesia. POSTOPERATIVE: Stable. INDICATION FOR THE PROCEDURE: The patient is a 41 year-old female who has been having some abdominal pain starting in her back. She has also had some new onset of constipation then she has diarrhea. She had a little bit of bleeding in her stool but states this has been going on since her first child. FINDINGS: The patient had basically normal colon, some internal hemorrhoids and one that looked like it stretched up a little bit further so biopsy was performed. PROCEDURE NOTE: After informed consent was obtained, the patient was brought to the endoscopy suite, placed in the left lateral decubitus position. She was administered IV sedation medication. INFORMATICS PHARMACIST monitored her vitals the entire time. The scope was then inserted, pushed all the way to about 150 cm. We did get all the way to the cecum. Took pictures of the appendiceal orifice and then able to get into the terminal ileum. Took a picture in the terminal ileum and then slowly withdrew the scope insufflating circumferentially at the narayan of the cecum, up the ascending colon to the hepatic flexure and then down the transverse colon to the splenic flexure into the descending colon and down in the sigmoid and finally into the rectum, retroflexed in the rectal vault, saw some internal hemorrhoids and then saw one that looked like it traveled up a little bit further than normal. I elected to do a biopsy of this. Biopsy was performed and then the scope was removed. The patient tolerated the procedure and she was recovered in the endoscopy suite. Job ID: [id number] Dictated Date: 08/25/2016 09:26:48 Nut Roaster Helper Date: 08/25/2016 09:47:55 / haile
[2016-08-25 10:10] VITALS: BP 116/71
[2016-08-25 10:15] VITALS: BP 116/71
== END 2016-08-25 10:15 | disposition home or self-care (01) ==
LOC: ENDO 07:23
PROVIDERS: ATTEND Surgery
DX: K62.5 Hemorrhage of anus and rectum (principal); K62.89 Other specified diseases of anus and rectum; K59.00 Constipation, unspecified; R19.7 Diarrhea, unspecified; K64.8 Other hemorrhoids; I10 Essential (primary) hypertension
CPT/HCPCS: 88305

== ENCOUNTER → 2016-10-05 | Outpatient (CLI) | payer BC ==
--- NOTE | 2016-10-05 14:48 | Diagnostic Imaging Report ---
EXAMINATION: Scoliosis INDICATION: Back pain A single AP standing view of the spine was obtained. AP views of the chest and pelvis were also performed. There are no prior studies available for comparison. There is dextroscoliosis of the lower thoracic spine. Using the superior endplate of T5 and the inferior endplate of T12 as landmarks with the Galloway method of analysis the measured angle of scoliosis is 23 degrees + or -2 to 3 degrees. There is levoscoliosis of the upper lumbar spine. Using the superior endplate of T12 and the inferior endplate of L4 as landmarks measured angle of the scoliosis is 22 degrees + or -2 to 3 degrees. There is no fracture or acute bony abnormality noted. IMPRESSION: 1. There is 23+ or -2-3 degrees of dextro scoliosis of the lower thoracic spine and 22 + or -2-3 degrees of levoscoliosis of the upper lumbar spine. 2. There is no acute bony abnormality noted. Dictated by: Dictated on workstation # [id number]
== END ==
LOC: RAD 13:51
PROVIDERS: ATTEND Nurse Practitioner Family
DX: M41.26 Other idiopathic scoliosis, lumbar region (principal)
CPT/HCPCS: 72081

== ENCOUNTER → 2016-10-11 | Outpatient (CLI) | payer BC ==
--- NOTE | 2016-10-11 17:55 | Diagnostic Imaging Report ---
PROCEDURE: US Thyroid. TECHNIQUE: Multiple real-time grayscale images were obtained of the thyroid in various projections. INDICATION: Thyroid nodules. COMPARISON: There are no prior ultrasound studies available for comparison. FINDINGS: The thyroid gland is prominent but not enlarged. The right lobe measures 5.2 x 1.6 x 2.1 cm while the left lobe is estimated to be 4.5 x 1.5 x 1.5 cm (normal gland size 4-5 x 2 x 2 cm or less). There is a small 0.6 x 0.4 x 0.5 cm rounded hypoechoic area in the mid portion of the right lobe of the thyroid. This finding is of uncertain etiology although most likely benign. In reviewing the previous CT neck exam of 08/10/2013, there was a suggestion of a small 4 mm area of diminished density in this area. This portion of the thyroid gland, however, was obscured by artifact. I do suspect that this hypoechoic lesion is a benign process. Even so, a short-term (three-month) followup thyroid ultrasound exam would be recommended. There is no other thyroid nodule identified. IMPRESSION: 1. The small 0.6 x 0.4 x 0.5 cm hypoechoic area in the right lobe of the thyroid is of uncertain etiology although most likely benign. Recommendations as above. 2. The thyroid gland is otherwise unremarkable. Dictated by: Dictated on workstation # [id number]
== END ==
LOC: RAD 12:08
PROVIDERS: ATTEND Nurse Practitioner Family
DX: E04.1 Nontoxic single thyroid nodule (principal)
CPT/HCPCS: 76536

== ENCOUNTER → 2017-01-25 | Outpatient (CLI) | payer BC ==
--- NOTE | 2017-01-25 18:00 | Diagnostic Imaging Report ---
INDICATION: Thyroid nodule. TECHNIQUE: Grayscale sonographic images of the thyroid gland. CORRELATION STUDY: 10/11/2016. FINDINGS: RIGHT LOBE: 4.6 x 1.6 x 1.7 cm. In the inferior pole is an oval slightly hypoechoic nodule at 5 x 6 x 4 mm. It is appearing unchanged. Remainder of the right lobe is unremarkable. LEFT LOBE: 4.4 x 1.5 x 1.9 cm. There is normal echotexture about the left lobe. Isthmus appears unremarkable. IMPRESSION: Relatively stable appearance of small hypoechoic nodule in the right lobe. Dictated by: Dictated on workstation # [id number]
== END ==
LOC: RAD 10:33
PROVIDERS: ATTEND Nurse Practitioner Family
DX: E04.1 Nontoxic single thyroid nodule (principal)
CPT/HCPCS: 76536

== ENCOUNTER 2017-02-16 09:59 | Emergency (ER) | payer BC ==
[~2017-02-16] VITALS: Ht 162.6 cm; Wt 70.3 kg
--- OUTSIDE RECORDS SUMMARY | 2017-02-16 10:05 | XMS REPORT ---
Author Author ORALIA SAVAGE [facility] Address [address] [place] [address] Care Team Providers Care Food Service Director Name Role Phone ORALIA SAVAGE Unavailable PROBLEMS Type Condition ICD9-CM Code XZC31-SW Code Onset Dates Condition Status SNOMED Code Problem Severe single current episode of major depressive disorder, without psychotic features F32.2 Active 01050192 Problem Other chronic pain G89.29 Active 43900482 Problem Severe episode of recurrent major depressive disorder, without psychotic features F33.2 Active 95647888 Problem Major depressive disorder, single episode, unspecified F32.9 Active 26645414 Problem Thyroid nodule E04.1 Active 425114966 Problem Non morbid obesity due to excess calories E66.09 Active 000461882 Problem Constipation, chronic K59.09 Active 295082588 Problem Cervicalgia M54.2 Active 2214592502834 Problem Pain in thoracic spine M54.6 Active 727921534745370 Problem Muscle spasm M62.838 Active 24143859 Problem Scoliosis of thoracolumbar spine, unspecified scoliosis type M41.9 Active 781308048 Problem Radicular low back pain M54.10 Active 106916012 Problem Controlled substance agreement signed Z79.899 Active 585695949 ALLERGIES No Known Allergies SOCIAL HISTORY Never Assessed PLAN OF CARE Activity Details Follow Up prn Reason: VITAL SIGNS Height 64 in 2016-07-15 Weight 174.4 lbs 2016-07-15 Temperature 99.2 degrees Fahrenheit 2016-07-15 Heart Rate 84 bpm 2016-07-15 Respiratory Rate 18 2016-07-15 BMI 29.93 kg/m2 2016-07-15 Blood pressure systolic 124 mmHg 2016-07-15 Blood pressure diastolic 68 mmHg 2016-07-15 MEDICATIONS Medication Instructions Dosage Frequency Start Date End Date Duration Status Lexapro 20 MG Orally Once a day 0.5 tablet 24h Active Diazepam 5 MG Orally Twice a day 1 tablet as needed 12h Active RESULTS No Results PROCEDURES Procedure Date Ordered Result Body Site STREP A ASSAY W/OPTIC July 15, 2016 IMMUNIZATIONS No Known Immunizations MEDICAL (GENERAL) HISTORY Type Description Date Medical History Anxiety, depression Medical History Fibromyalgia Medical History Chronic Consipation Medical History 08/16/16 [facility] general [facility] center, Dr. Jimenez, hemorrhage of anus and rectum, RLQ pain, constipation, diarrhea. Instructed to use miralax 1 scoop 3-[address] of abd as normal appendix, large amount of fecal material in large intestine. 08/25/16 Dr. Jimenez colonoscopy with biopsy. Recommended to increase fruits, vegetables and fiber, stronger probiotic , biopsy was benign, repeat colonoscopy in 10 years Medical History 10/11/16 thyroid US with small hypoechoic area in deepika right lobe of the thyroid is of uncertain etiology although most likely benign. Recommendations to have a 3 month fu US. Thyroid is otherwise unremarkable. Surgical History hysterectomy, total with unilateral salpingo-oophorectomy ( USO) Surgical History cholecystectomy Surgical History tonsillectomy and adenoidectomy Surgical History hemorrhoidectomy Surgical History EGD Surgical History colonoscopy 08/25/16
--- OUTSIDE RECORDS SUMMARY | 2017-02-16 10:06 | XMS REPORT | Continuity of Care Document ---
Author Author [facility] Address Unknown Phone Unavailable Allergies Active Description Code Type Severity Reaction Onset Reported/Identified Relationship to Patient Clinical Status Yes No Known Drug Allergies [id number] Drug Allergy Unknown N/A 08/25/2016 Medications There is no data. Problems Date Dx Coded Attending Type Code [...] 08/29/2007 BETH RIVERA DO K 300.00 Anxiety 10/15/2007 465.9 Upper Respiratory Infection 10/15/2007 BALA BIRD APRN 465.9 Upper Respiratory Infection 10/15/2007 465.9 Upper Respiratory Infection 10/15/2007 BETH RIVERA DO 465.9 Upper Respiratory Infection 10/15/2007 BETH RIVERA DO K 465.9 Upper Respiratory Infection 10/15/2007 BETH RIVERA DO K 465.9 Upper Respiratory Infection 11/16/2007 278.02 OVERWEIGHT 11/16/2007 296.90 EPISODIC MOOD DISORDERS 11/16/2007 BALA BIRD APRN 278.02 OVERWEIGHT 11/16/2007 BALA BIRD APRN 296.90 EPISODIC MOOD DISORDERS 11/16/2007 278.02 OVERWEIGHT 11/16/2007 296.90 EPISODIC MOOD DISORDERS 11/16/2007 RIVERA DO, BETH K 278.02 OVERWEIGHT 11/16/2007 RIVERA DO, BETH K 296.90 EPISODIC MOOD DISORDERS 11/16/2007 RIVERA DO, BETH K 278.02 OVERWEIGHT 11/16/2007 RIVERA DO, BETH K 296.90 EPISODIC MOOD DISORDERS 11/16/2007 RIVERA DO, BETH K 278.02 OVERWEIGHT 11/16/2007 RIVERA DO, BETH K 296.90 EPISODIC MOOD DISORDERS 12/13/2007 477.9 ALLERGIC RHINITIS 12/13/2007 BALA BIRD APRN L 477.9 ALLERGIC RHINITIS 12/13/2007 477.9 ALLERGIC [...] BALA BIRD APRN L 780.79 FATIGUE 12/20/2007 BALA BIRD APRN L 995.20 Unspecified Adverse Effect Of [...] Substance 01/07/2008 599.0 Urinary Tract Infection 01/07/2008 TWINBALA MONTOYA APRN 599.0 Urinary Tract Infection 01/07/2008 599.0 Urinary Tract Infection 01/07/2008 BETH RIVERA DO K 599.0 Urinary Tract Infection 01/07/2008 NICOLE MCKEE BETH K 599.0 Urinary Tract Infection 01/07/2008 NICOLE MCKEE BETH K 599.0 Urinary Tract Infection 01/22/2008 296.80 MO BIPOLAR NOS 01/22/2008 V58.69 taking female hormones - long-term tamoxifen use 01/22/2008 TWINBALA MONTOYA APRN L 296.80 MO BIPOLAR NOS 01/22/2008 PELON BALA TRACEY L V58.69 taking female hormones - long-term tamoxifen use 01/22/2008 296.80 MO BIPOLAR NOS 01/22/2008 V58.69 taking female hormones - long-term tamoxifen use 01/22/2008 RICKEY RIVERA DOA K 296.80 MO BIPOLAR NOS 01/22/2008 NICOLE [...] 03/03/2008 300.4 DESPONDENCY 03/03/2008 BALA BIRD APRN 300.4 DESPONDENCY 03/03/2008 300.4 DESPONDENCY 03/03/2008 RICKEY RIVERA DOA K 300.4 DESPONDENCY 03/03/2008 RIVERA DO BETH K 300.4 DESPONDENCY 03/03/2008 RIVERA DO BETH K 300.4 DESPONDENCY 03/12/2008 307.42 INSOMNIA DUE TO STRESS 03/12/2008 BALA BIRD APRN 307.42 INSOMNIA DUE TO STRESS 03/12/2008 307.42 INSOMNIA DUE TO STRESS 03/12/2008 BETH RIVERA DO K 307.42 INSOMNIA DUE TO STRESS 03/12/2008 BETH RIVERA DO K 307.42 INSOMNIA DUE TO STRESS 03/12/2008 NICOLE DO BETH K 307.42 INSOMNIA DUE TO STRESS 04/03/2008 616.10 Vaginitis 04/03/2008 PELON GARCIABALA Ruby 616.10 Vaginitis 04/03/2008 616.10 Vaginitis 04/03/2008 RIVERA DO BETH K 616.10 Vaginitis 04/03/2008 RIVERA DO, BETH K 616.10 Vaginitis 04/03/2008 RIVERA DO, BETH K 616.10 Vaginitis 05/14/2008 301.13 CYCLOTHYMIC DISORDER 05/14/2008 PELON GARCIABALA Ruby 301.13 CYCLOTHYMIC DISORDER 05/14/2008 301.13 CYCLOTHYMIC DISORDER 05/14/2008 RIVERA DO BETH K 301.13 CYCLOTHYMIC DISORDER 05/14/2008 RIVERA DO, BETH K 301.13 CYCLOTHYMIC DISORDER 05/14/2008 RIVERA DO, BETH K 301.13 CYCLOTHYMIC DISORDER 05/19/2008 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 05/19/2008 PELON GARCIABALA Ruby 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 05/19/2008 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 05/19/2008 RIVERA DO, BETH K 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 05/19/2008 RIVERA DO, BETH K 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 05/19/2008 RIVERA DO, BETH K 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 07/30/2008 627.2 Menopause Symptomatic 07/30/2008 627.9 Menopausal Disorder 07/30/2008 724.2 LUMBAGO 07/30/2008 TWINBALA MONTOYA APRN 627.2 Menopause Symptomatic 07/30/2008 TWINBALA MONTOYA APRN 627.9 Menopausal Disorder 07/30/2008 TWINBALA MONTOYA APRN L 724.2 LUMBAGO 07/30/2008 627.2 Menopause Symptomatic 07/30/2008 [...] Otogenic Pain 12/06/2008 388.71 Otogenic Pain 12/06/2008 RIVERA DO BETH K 388.71 Otogenic Pain 12/06/2008 RIVERA DO, BETH K 388.71 Otogenic Pain 12/06/2008 RIVERA DO, BETH K 388.71 Otogenic Pain 01/23/2009 V07.4 HORMONE REPLACEMENT THERAPY (POSTMENOPAUSAL) 01/23/2009 BALA BIRD APRN V07.4 HORMONE REPLACEMENT THERAPY (POSTMENOPAUSAL) 01/23/2009 V07.4 HORMONE REPLACEMENT THERAPY (POSTMENOPAUSAL) 01/23/2009 RICKEY RIVERA DOA K V07.4 HORMONE REPLACEMENT THERAPY (POSTMENOPAUSAL) 01/23/2009 RIVERA DO, BETH K V07.4 HORMONE REPLACEMENT THERAPY (POSTMENOPAUSAL) 01/23/2009 RIVERA DO, BETH K V07.4 HORMONE REPLACEMENT THERAPY (POSTMENOPAUSAL) 03/12/2009 799.81 DECREASED LIBIDO 03/12/2009 BALA BIRD APRN 799.81 DECREASED LIBIDO 03/12/2009 799.81 DECREASED LIBIDO 03/12/2009 RICKEY RIVERA DOA K 799.81 DECREASED LIBIDO 03/12/2009 RIVERA DO BETH K 799.81 DECREASED LIBIDO 03/12/2009 NICOLE MCKEE BETH K 799.81 DECREASED LIBIDO 05/28/2009 251.2 Hypoglycemia 05/28/2009 307.81 Tension Headache 05/28/2009 PELON BALA TRACEY 251.2 Hypoglycemia 05/28/2009 TWINBALA MONTOYA APRN 307.81 Tension Headache 05/28/2009 251.2 Hypoglycemia 05/28/2009 307.81 Tension Headache 05/28/2009 RIVERA DO, BETH K 251.2 Hypoglycemia 05/28/2009 RIVERA DO, BETH K 307.81 Tension Headache 05/28/2009 RIVERA DO, BETH K 251.2 Hypoglycemia 05/28/2009 RIVERA DO, BETH K 307.81 Tension Headache 05/28/2009 RIVERA DO, BETH K 251.2 Hypoglycemia 05/28/2009 RIVERA DO, BETH K 307.81 Tension Headache 07/29/2010 611.71 Breast Pain 07/29/2010 V16.3 FAM HX CANCER , BREAST 07/29/2010 BALA BIRD APRN 611.71 Breast Pain 07/29/2010 TWINBALA MONTOYA APRN V16.3 FAM HX CANCER, BREAST 07/29/2010 611.71 Breast Pain 07/29/2010 V16.3 FAM HX CANCER , BREAST 07/29/2010 RIVERA DO, BETH K 611.71 [...] Obesity 05/26/2011 V69.0 being sedentary 05/26/2011 RIVERA DO BETH K V65.3 Dietary Counseling Pertaining To [...] CHRONIC PAIN 08/09/2011 401.9 ESSENTIAL HYPERTENSION 08/09/2011 EATON VENEER DRIER TAILERBALA L 311 DEPRESSION 08/09/2011 EATON VENEER DRIER TAILER, BALA L 338.29 CHRONIC PAIN 08/09/2011 EATON VENEER DRIER TAILER, BALA L 401.9 ESSENTIAL HYPERTENSION 08/09/2011 311 [...] Hemorrhoids Nos 09/02/2011 578.1 Hematochezia 09/02/2011 V72.31 Adventure Challenge Instructor Exam, Routine 09/02/2011 BALA BIRD APRN L 455.6 Hemorrhoids Nos 09/02/2011 EATLINDSAY VENEER DRIER TAILERBALA Ruby L 578.1 Hematochezia 09/02/2011 EATLINDSAY VENEER DRIER TAILERBALA Ruby L V72.31 Adventure Challenge Instructor Exam, Routine 09/02/2011 455.6 Hemorrhoids Nos 09/02/2011 578.1 Hematochezia 09/02/2011 V72.31 Adventure Challenge Instructor Exam, Routine 09/02/2011 RIVERA DO, BETH K 455.6 Hemorrhoids Nos 09/02/2011 RIVERA DO, BETH K 578.1 Hematochezia 09/02/2011 RIVERA DO, BETH K V72.31 Adventure Challenge Instructor Exam, Routine 09/02/2011 RIVERA DO, BETH K 455.6 Hemorrhoids Nos 09/02/2011 RIVERA DO, BETH K 578.1 Hematochezia 09/02/2011 RIVERA DO, BETH K V72.31 Adventure Challenge Instructor Exam, Routine 09/02/2011 RIVERA DO, BETH K 455.6 Hemorrhoids Nos 09/02/2011 RIVERA DO, BETH K 578.1 Hematochezia 09/02/2011 RIVERA DO, BETH K V72.31 Adventure Challenge Instructor Exam, Routine 10/13/2011 NODX NO DIAGNOSIS 10/13/2011 BALA BIRD APRN NODX NO DIAGNOSIS 10/13/2011 NODX NO DIAGNOSIS 10/13/2011 RIVERA DO, BETH K NODX NO DIAGNOSIS 10/13/2011 RIVERA DO, BETH K NODX NO DIAGNOSIS 10/13/2011 RIVERA DO, BETH K NODX NO DIAGNOSIS 01/18/2012 796.2 ELEVATED BLOOD PRESSURE READING WITHOUT DIAGNOSIS OF HYPERTENSION 01/18/2012 BLAA BIRD APRN 796.2 ELEVATED BLOOD PRESSURE READING [...] RIVERA DO, BETH K 372.30 CONJUNCTIVITIS UNSPECIFIED 02/08/2013 RIVERA DO, BETH K 241.0 NONTOXIC UNINODULAR GOITER 02/08/2013 RIVERA DO, BETH K 799.24 EMOTIONAL LABILITY 02/08/2013 RIVERA DO, BETH K 241.0 NONTOXIC UNINODULAR GOITER 02/08/2013 RIVERA DO, BETH K 799.24 EMOTIONAL LABILITY 03/28/2013 RIVERA DO, BETH K 268.9 VITAMIN D DEFICIENCY 07/15/2013 Ot 300.00 ANXIETY STATE NOS 07/15/2013 Ot 786.05 SHORTNESS OF BREATH 08/10/2013 MACIEJ BLEVINS VENEER DRIER TAILER Ot 311 DEPRESSIVE DISORDER NEC 08/10/2013 MACIEJ BLEVINS VENEER DRIER TAILER Ot 780.79 OTH MALAISE FATIGUE 08/06/2016 OWEN ADORNO Ot K59.09 OTHER CONSTIPATION 08/06/2016 OWEN ADORNO Ot R10.31 RIGHT LOWER QUADRANT PAIN 08/06/2016 OWEN ADORNO Ot Z87.19 PERSONAL HISTORY OF OTHER DISEASES OF TH 08/06/2016 OWEN ADORNO Ot Z98.890 OTHER SPECIFIED POSTPROCEDURAL STATES 08/09/2016 OWEN ADORNO Ot K59.09 OTHER CONSTIPATION 08/09/2016 OWEN ADORNO Ot R10.31 RIGHT LOWER QUADRANT PAIN 08/09/2016 OWEN ADORNO Ot Z87.19 PERSONAL HISTORY OF OTHER DISEASES OF 08/09/2016 OWEN ADORNO Ot Z98.890 OTHER SPECIFIED POSTPROCEDURAL STATES 08/22/2016 MELANIE ACOSTA DO Ot K92.1 MELENA 08/22/2016 MELANIE ACOSTA DO Ot Z01.818 ENCOUNTER FOR OTHER PREPROCEDURAL EXAMIN 08/24/2016 MELANIE ACOSTA DO Ot K92.1 MELENA 08/24/2016 MELANIE ACOSTA DO B Ot Z01.818 ENCOUNTER FOR OTHER PREPROCEDURAL EXAMIN 08/25/2016 MELANIE ACOSTA DO B Ot I10 ESSENTIAL (PRIMARY) HYPERTENSION 08/25/2016 MELANIE ACOSTA DO Ot K59.00 CONSTIPATION, UNSPECIFIED 08/25/2016 MELANIE ACOSTA DO Ot K62.5 HEMORRHAGE OF ANUS AND RECTUM 08/25/2016 MELANIE ACOSTA DO B Ot K62.89 OTHER SPECIFIED DISEASES OF ANUS AND REC 08/25/2016 MELANIE ACOSTA DO Ot K64.8 OTHER HEMORRHOIDS 08/25/2016 MELANIE ACOSTA DO Ot R19.7 DIARRHEA, UNSPECIFIED 10/19/2016 DEGRAFFENREID-DOMINGUEZ, MICHAEL L Ot E04.1 NONTOXIC SINGLE THYROID NODULE 10/19/2016 DEGRAFFENREID-DOMINGUEZ, MICHAEL L Ot M41.26 OTHER IDIOPATHIC SCOLIOSIS, LUMBAR REGIO 02/08/2017 PANFILOLINADAVEMICHAEL BOOGIE Ot E04.1 NONTOXIC SINGLE THYROID NODULE Procedures Code Description Performed By Performed On BLOOD PRESSURE CHECK 10/13/2011 BLOOD PRESSURE CHECK 01/18/2012 58675 STREP A (IN-HOUSE) 02/09/2012 26661 NO CHARGE 12/21/2012 94262 THERAPUTIC INJ SQ/IM 02/08/2013 J3420 B12 VITAMIN INJECTION 02/08/2013 39616 ROUTINE VENIPUNCTURE 02/08/2013 46647 CMP 02/08/2013 35389 VITAMIN D 25-HYDROXY (D2,D3 , TOTAL) 02/08/2013 90922 VIT B 12 02/08/2013 73169 CBC 02/08/2013 THYANA THYROID ANALYZER 02/08/2013 Results Test Result Range Complete blood count (CBC) with automated white blood cell (WBC) differential - 08/06/16 14:10 Blood leukocytes automated count (number/volume) 7.0 10*3/uL 4.3-11.0 Blood erythrocytes automated count (number/volume) 4.59 10*6/uL 4.35-5.85 Venous blood hemoglobin measurement (mass/volume) 13.6 [...] Automated blood platelet mean volume measurement 11.5 [foz_us] 7.4-10.4 Automated blood neutrophils/100 leukocytes 57 % [...] Serum or plasma sodium measurement (moles/volume) 139 mmol/L 135-145 Serum or plasma potassium measurement (moles/volume) 4.2 mmol/L 3.6-5.0 Serum or plasma chloride measurement (moles/volume) 104 mmol/L 98-107 Carbon dioxide 25 mmol/L 21-32 Serum or plasma anion gap determination (moles/volume) 10 mmol/L 5-14 Serum or plasma urea nitrogen measurement (mass/volume) 11 mg/dL 7-18 Serum or plasma creatinine measurement (mass/volume) 0.73 mg/dL 0.60-1.30 Serum or plasma urea nitrogen/creatinine mass ratio 15 0 -20 Serum or plasma creatinine measurement with calculation [...] plasma C reactive protein measurement (mass/volume) 0.02 mg /dL 0.00-0.50 Complete urinalysis with reflex to culture - 08/06/16 14:55 Urine color determination YELLOW NRG Urine clarity determination CLEAR NRG Urine pH measurement by test strip 6 5-9 Specific gravity of urine by test strip 1.010 1.016- 1.022 Urine protein assay by test strip, semi-quantitative [...] Status Pt. Type Provider Facility Loc./Unit Complaint [id number] 03/28/2013 14:16:00 03/28/2013 23:59:59 CLS Outpatient NICOLE MCKEE BETH Butch [id number] 02/08/2013 08:55:00 02/08/2013 23:59:59 CLS Outpatient RIVERA BETH MCKEE [id number] 12/21/2012 15:45:00 12/21/2012 23:59:59 CLS Outpatient BETH RIVERA DO Butch [id number] 05/03/2012 11:46:00 05/03/2012 23:59:59 CLS Outpatient [id number] 02/09/2012 11:49:00 02/09/2012 23:59:59 CLS Outpatient BALA BIRD APRN [id number] 01/18/2012 15:00:00 01/18/2012 23:59:59 CLS Outpatient [id number] 02/06/2017 10:33:00 02/06/2017 23:59:59 CLS Preadmit MICHAEL CARY [facility] RAD BREAST TENDERNESS IN FEMALE [id number] 01/25/2017 10:33:00 01/25/2017 23:59:59 CLS Outpatient MICHAEL CARY [facility] RAD THYROID NODULE E04.1 [id number] 10/31/2016 13:03:00 10/31/2016 23:59:59 CLS Preadmit LUIS DANIEL MICHAEL L [facility] RAD M41.9 [id number] 10/11/2016 12:08:00 10/11/2016 23:59:59 CLS Outpatient EUGENEFFEMEGHAN MICHAEL L [facility] RAD THYROID NODULE E07.1 [id number] 10/05/2016 13:51:00 10/05/2016 23:59:59 CLS Outpatient PANFILORAFFETOMASAMillieALBERTO MICHAEL L [facility] RAD M41.9 [id number] 08/25/2016 07:23:00 08/25/2016 10:15:00 DIS Outpatient MELANIE ACOSTA DO [facility] ENDO BLOOD IN STOOL [id number] 08/22/2016 05:42:00 08/22/2016 11:05:00 DIS Outpatient MELANIE ACOSTA DO [facility] PREOP BLOOD IN STOOL [id number] 08/06/2016 14:00:00 08/06/2016 17:39:00 DIS Emergency OWEN ADORNO [facility] ER R SIDE PAIN/BACK PAIN [id number] 08/10/2013 11:41:00 08/10/2013 13:36:00 DIS Emergency MACIEJ BLEVINS APRN [facility] ER SWOLLEN GLAND FEVER BODY ACHES [id number] 07/15/2013 15:17:00 Document Registration
[2017-02-16] MEDS ORDERED: FLUC150T2 (10:19)
[2017-02-16] MEDS ORDERED: DOXY100C2 (10:19)
[2017-02-16] MEDS ORDERED: PROMETH/COD (10:19)
[2017-02-16] MEDS ORDERED: BENZ-36 (10:19)
--- NOTE | 2017-02-16 11:04 | Diagnostic Imaging Report ---
Portable upright radiograph of the chest Indication: Diaphoresis. Weakness. Findings: The lungs are clear of infiltrate. Scattered calcified granulomas in the right lung base seen. The heart size is normal. There is no effusion or pneumothorax The mediastinum and jeanette appear unremarkable. There is a thoracolumbar scoliosis. Impression: No acute process. Dictated by: Dictated on workstation # [id number]
--- NOTE | 2017-02-16 11:25 | ED General ---
General Chief Complaint: General Problems/Pain Stated Complaint: SOA,MUCUS Nursing Triage Note: ARRIVED VIA AMB TO ROOM 10 WITH MASK ON. STATES SHE HAS HAD 3 DIFFERENT FLU TESTS DONE AND ALL HAS BEEN NEG. COMPLAINS OF BEING DIAPHERETIC, TIRED, AND NOT BEING ABLE TO COUGH ANYTHING UP. STATES SHE LEAVES FOR [place] ON THE AND WANTS TO FEEL BETTER. HAS BEEN TO THE DR AND A URGENT CARE. STATES SHE WAS PUT ON BACTRIM LAST. WHEN ASKED WHAT SHE WOULD LIKE US TO DO FOR HER ET PT STATES SHE HAS NEVER HAD A X-RAY. Nursing Sepsis Screen: No Definite Risk (EASTON COATES MD) History of Present Illness Time Seen by Provider: 11:21 Initial Comments The patient is a 41-year-old white female. She states that she has had cough with fever and malaise at intervals that since . Again beginning she has had sweats cough mucus production and a sense of shortness of breath. She is a lifetime nonsmoker. She has no history of asthma. They have recently gained custody of 3 young nieces. Presently there are 8 people in their household. Timing/Duration: Other (since ) Associated Systoms: Diaphoresis, Fever/Chills (EASTON COATES MD) Allergies and Home Medications Allergies Coded Allergies: No Known Drug Allergies (Verified , 08/25/16) Home Medications Benzonatate 100 Mg Capsule, (Reported) Diazepam 5 Mg Tablet, 5 EACH PO TID PRN for ANXIETY, (Reported) Doxycycline Hyclate 100 Mg Capsule, (Reported) Escitalopram Oxalate 20 Mg Tablet, 20 MG PO DAILY, (Reported) Fluconazole 150 Mg Tablet, (Reported) Hyoscyamine Sulfate 0.125 Mg Tab.subl, 0.125 MG SL Q6H PRN for SPASMS, #14 Ref 0 Prescribed by: OWEN OCASIO on 08/06/16 1728 Levofloxacin 750 Mg Tablet, 750 MG PO DAILY, #5 Prescribed by: AYAH TAVAREZ on 02/16/17 1404 Ondansetron 8 Mg Tab.rapdis, 8 MG PO Q6H PRN for NAUSEA/VOMITING-1ST LINE, #10 Ref 0 Prescribed by: OWEN OCASIO on 08/06/16 1728 Prednisone 5 Mg Tablet, 5 MG PO UD, #78 12 PILLS DAY 1, THEN DECREASE BY 1 PILL A DAY UNTIL GONE Prescribed by: AYAH TAVAREZ on 02/16/17 1404 [Prometh/Cod] , (Reported) Constitutional: see HPI EENTM: ear pain, throat pain Respiratory: cough, dyspnea on exertion, phlegm Cardiovascular: no symptoms reported Gastrointestinal: no symptoms reported Genitourinary: no symptoms reported Musculoskeletal: no symptoms reported Skin: no symptoms reported Psychiatric/Neurological: No Symptoms Reported Hematologic/Lymphatic: No Symptoms Reported Immunological/Allergic: no symptoms reported (vs LIVER PROBLEM) (EASTON COATES MD) Past Ffmwnjg-Qafuyy-Gzmlcu Hx Patient Social History Alcohol Use: Denies Use Recreational Drug Use: No Smoking Status: Never a Smoker Recent Foreign Travel: No Contact w/Someone Who Travel: No Recent Infectious Disease Expo: No Recent Hopitalizations: No (EASTON COATES MD) Recreational Drug Use: Yes (AYAH TAVAREZ DO) Seasonal Allergies Seasonal Allergies: Yes (EASTON COATES MD) Surgeries History of Surgeries: Yes (divated septum sx, hemorrhoidectomy) Surgeries: Gallbladder, Hysterectomy, Tonsillectomy (EASTON COATES MD) Respiratory History of Respiratory Disorde: No (EASTON COATES MD) Cardiovascular History of Cardiac Disorders: No (EASTON COATES MD) Neurological History of Neurological Disord: No (EASTON COATES MD) 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 System Hx 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 (EASTON COATES MD) Genitourinary History of Genitourinary Disor: No (EASTON COATES MD) Gastrointestinal History of Gastrointestinal Di: Yes (bloody stools) Gastrointestinal Disorders: Chronic Constipation, Hemorrhoids, Chronic Diarrhea (EASTON COATES MD) Musculoskeletal History of Musculoskeletal Dis: No (EASTON COATES MD) Endocrine History of Endocrine Disorders: Yes (THYROID NODULES) (EASTON COATES MD) HEENT History of HEENT Disorders: No (EASTON COATES MD) Cancer History of Cancer: No (EASTON COATES MD) Psychosocial History of Psychiatric Problem: Yes Behavioral Health Disorders: Anxiety, Depression (EASTON COATES MD) Integumentary History of Skin or Integumenta: No (EASTON COATES MD) Blood Transfusions History of Blood Disorders: No (EASTON COATES MD) Family Medical History Significant Family History: No Pertinent Family Hx (EASTON COATES MD) Physical Exam Vital Signs Vital Sign - Last 12Hours 02/16/17 10:05 Temp 97.5 Pulse 86 Resp 18 B/P (MAP) 138/95 (109) Pulse Ox 100 (AYAH TAVAREZ DO) Vital Signs Capillary Refill : Less Than 3 Seconds (EASTON COATES MD) General Appearance: Mild Distress Eyes: Bilateral Eye Normal Inspection HEENT: Normal ENT Inspection Neck: Full Range of Motion, Normal Inspection, Non Tender, Supple, Carotid Bruit Respiratory: Chest Non Tender, Lungs Clear, Normal Breath Sounds, No Accessory Muscle Use, No Respiratory Distress Cardiovascular: Regular Rate, Rhythm Gastrointestinal: Normal Bowel Sounds, No Organomegaly, No Pulsatile Mass, Non Tender, Soft Back: Normal Inspection Extremity: Normal Capillary Refill, Normal Inspection, Normal Range of Motion, Non Tender, No Calf Tenderness, No Pedal Edema Neurologic/Psychiatric: Alert, Oriented x3, No Motor/Sensory Deficits, Normal Mood/Affect Skin: Normal Color, Warm/Dry Lymphatic: No Adenopathy (EASTON COATES MD) Neck: No Carotid Bruit Cardiovascular: No Edema, No JVD, No Murmur 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 Norm as Tested Skin: No Rash (AYAH TAVAREZ DO) Progress/Results/Core Measures Suspected Sepsis Recent Fever Within 48 Hours: No Infection Criteria Present: Documented Infection New/Unexplained Altered Menta: No Sepsis Screen: No Definite Risk Sepsis Diagnosis: SIRS Temperature:97.5 Pulse: 86 Respiratory Rate: 18 Blood Pressure 138 /95 Mean: 109 (EASTON COATES MD) Results/Orders Lab Results Laboratory Tests Test 02/16/17 11:40 Range/Units White Blood Count 4.1 L 4.3-11.0 10^3/uL Red Blood Count 4.21 L 4.35-5.85 10^6/uL Hemoglobin 12.8 11.5-16.0 G/DL Hematocrit 38 35-52 % Mean Corpuscular Volume 91 80-99 FL Mean Corpuscular Hemoglobin 30 25-34 PG Mean Corpuscular Hemoglobin Concent 33 32-36 G/DL Red Cell Distribution Width 12.6 10.0-14.5 % Platelet Count 174 130-400 10^3/uL Mean Platelet Volume 10.7 H 7.4-10.4 FL Neutrophils (%) (Auto) 56 42-75 % Lymphocytes (%) (Auto) 30 12-44 % Monocytes (%) (Auto) 10 0-12 % Eosinophils (%) (Auto) 2 0-10 % Basophils (%) (Auto) 1 0-10 % Neutrophils # (Auto) 2.3 1.8-7.8 X 10^3 Lymphocytes # (Auto) 1.2 1.0-4.0 X 10^3 Monocytes # (Auto) 0.4 0.0-1.0 X 10^3 Eosinophils # (Auto) 0.1 0.0-0.3 10^3/uL Basophils # (Auto) 0.0 0.0-0.1 10^3/uL Erythrocyte Sedimentation Rate 8 0-20 MM/HR Sodium Level 141 135-145 MMOL/L Potassium Level 4.2 3.6-5.0 MMOL/L Chloride Level 106 98-107 MMOL/L Carbon Dioxide Level 29 21-32 MMOL/L Anion Gap 6 5-14 MMOL/L Blood Urea Nitrogen 8 7-18 MG/DL Creatinine 0.61 0.60-1.30 MG/DL Estimat Glomerular Filtration Rate > 60 BUN/Creatinine Ratio 13 Glucose Level 90 70-105 MG/DL Calcium Level 8.4 L 8.5-10.1 MG/DL Total Bilirubin 0.3 0.1-1.0 MG/DL Aspartate Amino Transf (AST/SGOT) 131 H 5-34 U/L Alanine Aminotransferase (ALT/SGPT) 215 H 0-55 U/L Alkaline Phosphatase 83 40-136 U/L Total Protein 6.6 6.4-8.2 GM/DL Albumin 3.9 3.2-4.5 GM/DL (AYAH TAVAREZ DO) My Orders Orders - AYAH TAVAREZ DO Hepatitis Panel Acute (02/16/17 12:12) Ct Neck/Chest W (02/16/17 12:12) Iohexol Injection (Omnipaque 350 Mg/Ml 1 (02/16/17 12:30) Ns (Ivpb) (Sodium Chloride 0.9% Ivpb Bag (02/16/17 12:30) Sodium Chloride Flush (Catheter Flush Sy (02/16/17 12:30) Pharmacy Communication (Pharmacy Communi (02/16/17 12:22) Clindamycin Injection (Cleocin Injection (02/16/17 13:45) Ceftriaxone Injection (Rocephin Injectio (02/16/17 14:00) Methylprednisolone Sod Succ (Solu-Medrol (02/16/17 13:54) Saline Lock/Iv-Start (02/16/17 14:47) Lactated Ringers (Lr 1000 Ml Iv Solution (02/16/17 14:47) (AYAH TAVAREZ DO) Medications Given in ED Current Medications Medications Dose Ordered Sig/Narayan Route Start Time Stop Time Status Last Admin Dose Admin Ceftriaxone Sodium 1000 mg/ Sodium Chloride 50 ml @ 100 mls/hr ONCE ONCE IV 02/16/17 14:00 02/16/17 14:29 DC 02/16/17 14:18 100 MLS/HR Iohexol 100 ml ONCE ONCE IV 02/16/17 12:30 02/16/17 12:31 DC 02/16/17 12:47 100 ML Lactated Ringer's 1,000 ml @ 0 mls/hr Q0M ONCE IV 02/16/17 14:47 02/16/17 14:49 DC 02/16/17 14:53 1,000 MLS/HR Sodium Chloride 10 ml NEEDED PRN IV 02/16/17 12:30 02/16/17 12:47 10 ML Sodium Chloride 100 ml ONCE ONCE IV 02/16/17 12:30 02/16/17 12:31 DC 02/16/17 12:47 80 ML (AYAH TAVAREZ DO) Vital Signs/I&O Vital Sign - Last 12Hours 02/16/17 10:05 Temp 97.5 Pulse 86 Resp 18 B/P (MAP) 138/95 (109) Pulse Ox 100 (AYAH TAVAREZ DO) Vital Signs/I&O Capillary Refill : Less Than 3 Seconds (EASTON COATES MD) Blood Pressure Mean: 109 Progress Note : Progress Note 1200--ASSUMED CARE FROM DR. COATES, ALL TESTS BACK. PT STATES SHE HAS HAD SWOLLEN LYMPH NODE IN LEFT NECK FOR QUITE SOME TIME. NEVER SOUGHT CARE ON REVIEWING LAB RESULTS, PT STATES SHE HAD ULTRASOUND A LONG TIME AGO AND WAS TOLD SHE HAD AN ENLARGED LIVER, NO FURTHER EVALUATION DONE. ON REVIEW OF OLD RECORDS, PT HAD THYROID ULTRASOUND 10/11/16 AND 01/25/17 AND HAS A SMALL, STABLE, BENIGN APPEARING NODULE. PT STATES SHE IS ON 3RD ROUND OF ANTIBIOTICS SINCE NOVEMBER--WAS ON AMOXIL, THEN KEFLEX, AND 2 DAYS AGO STARTED ON DOXYCYCLINE--HAS BEEN SEEN MULTIPLE TIMES BY MULTIPLE PROVIDERS SINCE NOVEMBER WAS SEEN AT [facility] 3 WEEKS AGO, AND STARTED ON CLINDAMYCIN AND STEROIDS-- PT WAS SEEN AT [facility] A FEW DAYS AGO, STARTED ON INHALER. SEEN AT URGENT CARE 2 DAYS AGO AND STARTED ON DOXYCYCLINE PT HAS ALSO BEEN PRESCRIBED TESSALON AND PHENERGAN WITH CODEINE COUGH SYRUP. NO COUGH OR DYSPNEA OR ANY OTHER COMPLAINTS NOTED AT ANY TIME DURING ER STAY (AYAH TAVAREZ DO) Diagnostic Imaging Comments CT NECK AND CHEST--MILD MUCOSAL THICKENING AND AIR FLUID LEVELS IN BILATERAL MAXILLARY SINUSES. FOCAL CONGLOMERATION OF MULTIPLE SMALL GROUNDGLASS MICRONODULAR DENSITIES IN LATERAL MARGINS OF RIGHT UPPER LOBE. INFECTIOUS OR INFLAMMATORY. ATYPICAL OR FUNGAL ETIOLOGY SHOULD BE CONSIDERED--PER RADIOLOGIST REPORT AT 1345 Reviewed: Reviewed by Me (AYAH TAVAREZ DO) Departure Communication (PCP) 1345--SPOKE WITH DR. Ozzie WILLAMS. AGREES WITH PLAN OF CARE. PT HAS AN APPOINTMENT 03/03/17. (AYAH TAVAREZ DO) Impression Impression: Primary Impression: Bronchitis Additional Impressions: Abnormal finding on CT scan Acute sinusitis Elevated liver enzymes Disposition: HOME, SELF-CARE Condition: Stable Departure-Patient Inst. Referrals: BETH RIVERA DO (PCP) Primary Care Physician MICHAEL CARY (Family) Primary Care Physician Patient Instructions: Acute Bronchitis, Adult (DC) Add. Discharge Instructions: CONTINUE INHALER PRESCRIBED CONTINUE TESSALON AND PHENERGAN/ CODEINE COUGH SYRUP NEEDED MOTRIN NEEDED FOR PAIN AVOID TYLENOL AND AVOID ALCOHOL FOLLOW UP WITH [facility] 03/03/17 SCHEDULED, OR SOONER IF WORSE All discharge instructions reviewed with patient and/or family. Voiced understanding. Scripts Prednisone (Prednisone) 5 Mg Tablet 5 MG PO UD, #78 TAB 12 PILLS DAY 1, THEN DECREASE BY 1 PILL A DAY UNTIL GONE Prov: AYAH TAVAREZ DO 02/16/17 Levofloxacin (Levaquin) 750 Mg Tablet 750 MG PO DAILY, #5 TAB Prov: AYAH TAVAREZ DO 02/16/17 EASTON COATES MD Feb 16, 2017 11:25 AYAH TAVAREZ DO Feb 16, 2017 12:27
[2017-02-16 11:48] LABS: BASOPHILS % (AUTO) 1 % (0-10); EOSINOPHILS # (AUTO) 0.1 10^3/uL (0.0-0.3); EOSINOPHILS % (AUTO) 2 % (0-10); LYMPHOCYTES # (AUTO) 1.2 X 10^3 (1.0-4.0); LYMPHOCYTES % (AUTO) 30 % (12-44); MEAN CORPUSCULAR HEMOGLOBIN 30 PG (25-34); MEAN CORPUSCULAR HGB CONC 33 G/DL (32-36); MEAN CORPUSCULAR VOLUME 91 FL (80-99); MEAN PLATELET VOLUME 10.7 FL (7.4-10.4); MONOCYTES # (AUTO) 0.4 X 10^3 (0.0-1.0); MONOCYTES % (AUTO) 10 % (0-12); NEUTROPHILS # (AUTO) 2.3 X 10^3 (1.8-7.8); NEUTROPHILS % (AUTO) 56 % (42-75); PLATELET COUNT 174 10^3/uL (130-400); RED BLOOD COUNT 4.21 10^6/uL (4.35-5.85); RED CELL DISTRIBUTION WIDTH 12.6 % (10.0-14.5); WHITE BLOOD COUNT 4.1 10^3/uL (4.3-11.0)
[2017-02-16 12:06] LABS: ALANINE AMINOTRANSFERASE 215 U/L (0-55); ALBUMIN 3.9 GM/DL (3.2-4.5); ANION GAP 6 MMOL/L (5-14); ASPARTATE AMINO TRANSFERASE 131 U/L (5-34); BILIRUBIN,TOTAL 0.3 MG/DL (0.1-1.0); BLOOD UREA NITROGEN 8 MG/DL (7-18); BUN/CREATININE RATIO 13; CALCIUM 8.4 MG/DL (8.5-10.1); CARBON DIOXIDE 29 MMOL/L (21-32); CHLORIDE 106 MMOL/L (98-107); CREATININE SERUM 0.61 MG/DL (0.60-1.30); GFR ESTIMATED > 60; GLUCOSE 90 MG/DL (70-105); POTASSIUM 4.2 MMOL/L (3.6-5.0); SODIUM 141 MMOL/L (135-145); TOTAL PROTEIN 6.6 GM/DL (6.4-8.2)
[2017-02-16 12:07] LABS: ERYTHROCYTE SEDIMENTATION RATE 8 MM/HR (0-20)
[2017-02-16] MEDS: NS 100 ML (IVPB) BAG IV ONE (12:47)
[2017-02-16] MEDS: CATHETER FLUSH 10 ML SYR IV PRN (12:47)
[2017-02-16] MEDS: IOHEXOL 350 MG/ML 100 ML (OMNIPAQUE 350) VIAL IV ONE (12:47)
--- NOTE | 2017-02-16 13:26 | Diagnostic Imaging Report ---
INDICATION: Chest congestion. Cough. Fever. COMPARISON: CT neck dated 08/10/2013 TECHNIQUE: Routine postcontrast CT of the neck and chest was performed sagittal reformats were also performed and reviewed. FINDINGS: CT neck: The visualized portions of the nasopharynx, oropharynx and the hypopharynx are unremarkable. There is no airway compromise. No pathologically enlarged cervical lymph nodes are seen. No masses or fluid collections are identified in the neck. The deep spaces of the neck are unremarkable. There is no abnormal enhancement. The parotid, submandibular and thyroid glands are unremarkable. The visualized portions of the intracranial structures demonstrate no acute abnormalities. The visualized paranasal sinuses show mild mucosal thickening with small air-fluid levels within bilateral maxillary sinuses. CT CHEST: Evaluation of the cardiomediastinal structures demonstrates some mild soft tissue prominence within the anterosuperior mediastinum. This is stable compared to 08/10/2013 and may be on the basis of residual thymic tissue. No other cardiomediastinal masses are identified. A few calcified right hilar and subcarinal lymph nodes are noted. No pathologically enlarged or morphologically abnormal adenopathy is seen within the mediastinum, jeanette, nor axilla. Heart size is within normal limits. There is no large pericardial effusion. Evaluation of the lung wright demonstrates subtle conglomeration of micronodular groundglass densities in the lateral margins of the right upper lobe (image 18, series 3). Largest measures approximately 4 mm in diameter. No other focal consolidation is identified. There is no large effusion or pneumothorax. Calcified granuloma are noted within the right lower lobe. No other pulmonary nodules or masses are identified. Bony structures show no acute abnormalities. Included portions of the upper abdomen are unremarkable. IMPRESSION: 1. Mild mucosal thickening with small air-fluid levels within the bilateral maxillary sinuses. Correlation for underlying acute sinusitis is recommended. 2. Focal conglomeration of multiple subtle small groundglass micronodular densities in the lateral margins of the right upper lobe. This may be on an infectious or inflammatory basis. Atypical viral or fungal etiology should also be considered. Please see below for followup recommendations. PULMONARY NODULE FOLLOW-UP Subsolid Nodules: <6 mm: * Ground glass - no routine follow up. (In certain suspicious nodules <6 mm, consider follow-up at 2 and 4 years. If solid component(s) or growth develops, consider resection.) * Part solid - no routine follow up. (In practice, part-solid nodules cannot be defined as such until 6mm or greater, and nodules <6 mm do not usually require follow-up. Persistent part-solid nodules with solid components 6mm or greater should be considered highly suspicious) * Multiple - Consider at 3-6 months. If stable, consider CT at 2 and 4 years. (Multiple <6mm pure ground-glass nodules are usually benign, but consider follow-up in selected patients at high risk at 2 and 4 years.) 6 mm or greater: * Ground glass - CT at 6-12 months to confirm persistence, then CT every 2 years until 5 years * Part solid - CT at 3-6 months to confirm persistence. If unchanged and solid component remains <6 mm, annual CT should be performed for 5 years * Multiple - CT at 3-6 months. Subsequent management based on the most suspicious nodule(s). Dictated by: Dictated on workstation # [id number]
[2017-02-16] MEDS ORDERED: LEVO750T9 PO ×2 (14:02→14:04)
[2017-02-16] MEDS ORDERED: PRED5TAB PO ×2 (14:02→14:04)
[2017-02-16] MEDS: cefTRIAXone INJECTION 1,000 MG in NS (IVPB) 50 ML IV ONE (14:18)
[2017-02-16] MEDS: methylPREDNISolone 125 MG (Solu-MEDROL) VIAL IV STA (14:19)
[2017-02-16] MEDS: LACTATED RINGERS 1,000 ML IV ONE (14:53)
[2017-02-16 16:43] VITALS: BP 146/88
[2017-02-17] MEDS: CLINDAMYCIN INJECTION 900 MG in NS (IVPB) 50 ML IV ONE (07:18)
== END 2017-02-16 16:43 | disposition home or self-care (01) ==
LOC: EDUNIT# 09:59 → ER 10:01
DX: J40 Bronchitis, not specified as acute or chronic (principal); J01.90 Acute sinusitis, unspecified; R94.5 Abnormal results of liver function studies; R93.5 Abnormal findings on diagnostic imaging of other abdominal regions, including retroperitoneum; F41.9 Anxiety disorder, unspecified; F32.9 Major depressive disorder, single episode, unspecified; Z90.710 Acquired absence of both cervix and uterus; Z90.89 Acquired absence of other organs; Z87.19 Personal history of other diseases of the digestive system
CPT/HCPCS: 36415; 70491; 71010; 71260; 80053; 80074; 85025; 85652; 99283

== ENCOUNTER 2017-05-28 15:58 | Observation (INO) | payer BC ==
[~2017-05-28] VITALS: Ht 162.6 cm; Wt 78.0 kg
[~2017-05-28 15:58] MED LIST changes: +BENZ-36; +DOXY100C2; +FLUC150T2; +LEVO750T9 PO; +PRED5TAB PO; +PROMETH/COD
[2017-05-28] MEDS ORDERED: HYDR-3812 PO (16:15)
[2017-05-28] MEDS ORDERED: CYCL5TAB (16:15)
[2017-05-28] MEDS ORDERED: RIZA5TAB28 PO (16:15)
--- NOTE | 2017-05-28 16:59 | ED General ---
General Chief Complaint: General Problems/Pain Stated Complaint: FEVER RIGHT RIB PAIN SWOLLEN GLANDS Nursing Triage Note: TO ROOM REPORTS FOR 1 MONTHS HAS HAS SWOLLEN GLANDS,FEVER RIB PAIN WITH HEADACHE. BEEN SEEN AND WORKED UP BY [facility]. REPORTS THAT HER PAIN MEDS AND VALIUM NOT HELPING WITH PAIN Nursing Sepsis Screen: No Definite Risk Source of Information: Patient, Spouse Exam Limitations: No Limitations History of Present Illness Date Seen by Provider: May 28, 2017 Time Seen by Provider: 16:58 Initial Comments 41 yo female patient presents to the ED with c/o 1 month onset of swollen glands , fever, rt lower rib pain, and headache. patient states she was seen by [facility] with a negative workup. Patient states her hydrocodone and valium have not been relieving symptoms. Also reports alternating tylenol and motrin "around the clock" without improvement in symptoms. Patient does c/o neck pain and fatigue. Denies known tick bites or mosquito bites. Denies cat bites or scratches. Lights are "very bright", but denies photophobia. No hx for migraines or headaches. No known illness exposures. Timing/Duration: Intermittent, Other (1 month) Allergies and Home Medications Allergies Coded Allergies: No Known Drug Allergies (Verified , 08/25/16) Home Medications Acetaminophen 500 Mg Tablet, 1,000 MG PO Q8H PRN for PAIN-MILD, (Reported) TAKES 2 (500MG) TABLETS - ALTERNATES WITH IBU Cholecalciferol (Vitamin D3) 2,000 Unit Tab.chew, 2,000 UNIT PO DAILY, (Reported ) Diazepam 5 Mg Tablet, 5 MG PO QID PRN for ANXIETY, (Reported) Escitalopram Oxalate 20 Mg Tablet, 20 MG PO DAILY, (Reported) Folic Acid/Multivit-Minerals 200 Mcg Tab.chew, 1 TAB.CHEW PO DAILY, (Reported) Hydrocodone/Acetaminophen 1 Each Tablet, 1 TAB PO BID PRN for PAIN-MODERATE, ( Reported) Ibuprofen 200 Mg Tablet, 800 MG PO Q8H PRN for PAIN-MILD, (Reported) TAKES 4 (200MG) TABLETS - ALTERNATES WITH TYLENOL Inulin/Chromium Picolinate 1 Each Tab.chew, 1 TAB.CHEW PO DAILY, (Reported) Lisinopril 10 Mg Tablet, 10 MG PO DAILY@0900 Prescribed by: REVA MICHAELS on 05/29/17 3035 Ondansetron 8 Mg Tab.rapdis, 8 MG PO Q6H PRN for NAUSEA/VOMITING-1ST LINE Prescribed by: OWEN OCASIO on 08/06/16 1728 Rizatriptan Benzoate 5 Mg Tablet, 5 MG PO UD PRN for MIGRAINE, (Reported) Tizanidine HCl 4 Mg Tablet, 4 MG PO TID PRN for MUSCLE SPASMS, (Reported) Patient Home Medication List Home Medication List Reviewed: Yes Review of Systems Constitutional: chills, No diaphoresis, No dizziness, fever, malaise EENTM: see HPI, blurred vision, No ear discharge, No hearing loss, No ear pain , No double vision, No eye pain, No dental problems, No mouth pain, No nose congestion, No nose pain, No throat pain, No throat swelling Respiratory: No cough, No dyspnea on exertion, No phlegm, No short of breath Cardiovascular: No chest pain, No edema, No palpitations, No syncope Gastrointestinal: No abdominal pain, No constipation, No diarrhea, loss of appetite, No nausea, No vomiting Genitourinary: No decreased output, No dysuria, No frequency, No hematuria, No pain Musculoskeletal: see HPI, No back pain, No joint pain, neck pain Skin: no symptoms reported Psychiatric/Neurological: Headache, Denies Numbness, Denies Paresthesia, Denies Seizure, Denies Tingling, Denies Weakness All Other Systems Reviewed Negative Unless Noted: Yes (Negative excepted noted.) Past Mubdjge-Aqsyij-Uvfjvw Hx Patient Social History Alcohol Use: Occasionally Uses Recreational Drug Use: No Smoking Status: Never a Smoker Recent Foreign Travel: No Contact w/Someone Who Travel: No Recent Infectious Disease Expo: No Recent Hopitalizations: No Seasonal Allergies Seasonal Allergies: Yes Past Medical History Surgeries: Yes (divated septum sx, hemorrhoidectomy) Gallbladder, Hysterectomy, Tonsillectomy Respiratory: No Cardiac: No Neurological: No 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 Disorders: No [employer] History: Hysterectomy Genitourinary: No Gastrointestinal: Yes (bloody stools) Chronic Constipation, Hemorrhoids, Chronic Diarrhea Musculoskeletal: Yes Chronic Back Pain Endocrine: Yes (THYROID NODULES) HEENT: No Cancer: No Psychosocial: Yes Anxiety, Depression Integumentary: No Blood Disorders: No Family Medical History Reviewed and Corrections made No Pertinent Family Hx personal h/o RMSF approximately 4-5 years ago. Physical Exam Vital Signs Vital Signs - First Documented 05/28/17 16:01 Temp 98.2 Pulse 62 Resp 18 B/P (MAP) 141/91 (108) Pulse Ox 99 O2 Delivery Room Air Capillary Refill : Less Than 3 Seconds General Appearance: No Apparent Distress, WD/WN HEENT: PERRL/EOMI, TMs Normal, Normal ENT Inspection, Pharynx Normal Neck: Full Range of Motion, Normal Inspection, Supple, No Carotid Bruit, Tender Lateral (posterolateral neck tenderness.), No Tender Midline, Other ( mild anterior cervical lymphadenopathy with TTP.) Respiratory: Lungs Clear, Normal Breath Sounds, No Accessory Muscle Use, No Respiratory Distress Cardiovascular: Regular Rate, Rhythm, No Edema, No JVD, No Murmur, Normal Peripheral Pulses Gastrointestinal: Normal Bowel Sounds, No Organomegaly, Non Tender, Soft Back: Normal Inspection, No CVA Tenderness, No Vertebral Tenderness Extremity: Normal Capillary Refill, Normal Inspection, No Calf Tenderness, No Pedal Edema Neurologic/Psychiatric: Alert, Oriented x3, No Motor/Sensory Deficits, Normal 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, 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 Norm as Tested Skin: Normal Color, Warm/Dry Focused Exam Lactate Level 05/28/17 17:17: Lactic Acid Level 0.66 Progress/Results/Core Measures Suspected Sepsis Recent Fever Within 48 Hours: Yes Infection Criteria Present: None New/Unexplained Altered Menta: No Sepsis Screen: No Definite Risk Sepsis Diagnosis: SIRS Temperature:98.2 Pulse: 62 Respiratory Rate: 18 Laboratory Tests 05/28/17 17:17: White Blood Count 8.7 05/29/17 05:39: White Blood Count 6.1 Blood Pressure 141 /91 Mean: 108 05/28/17 17:17: Lactic Acid Level 0.66 Laboratory Tests 05/28/17 17:17: Creatinine 0.65, Platelet Count 198, Total Bilirubin 0.5 05/29/17 05:39: Creatinine 0.67, Platelet Count 162, Total Bilirubin 0.5 Results/Orders Lab Results Laboratory Tests Test 05/28/17 16:44 05/28/17 17:15 05/28/17 17:17 05/28/17 18:05 Range/Units Group A Streptococcus Screen NEGATIVE NEGATIVE Urine Color YELLOW Urine Clarity CLEAR Urine pH 7 5-9 Urine Specific [place] 1.010 L 1.016-1.022 Urine Protein NEGATIVE NEGATIVE Urine Glucose (UA) NEGATIVE NEGATIVE Urine Ketones NEGATIVE NEGATIVE Urine Nitrite NEGATIVE NEGATIVE Urine Bilirubin NEGATIVE NEGATIVE Urine Urobilinogen NORMAL NORMAL MG/DL Urine Leukocyte Esterase NEGATIVE NEGATIVE Urine RBC (Auto) NEGATIVE NEGATIVE Urine RBC NONE /HPF Urine WBC 0-2 /HPF Urine Squamous Epithelial Cells 0-2 /HPF Urine Renal Epithelial Cells NONE /HPF Urine Crystals NONE /LPF Urine Bacteria TRACE /HPF Urine Casts NONE /LPF Urine Mucus NEGATIVE /LPF Urine Culture Indicated NO White Blood Count 8.7 4.3-11.0 10^3/uL Red Blood Count 4.68 4.35-5.85 10^6/uL Hemoglobin 14.5 11.5-16.0 G/DL Hematocrit 41 35-52 % Mean Corpuscular Volume 87 80-99 FL Mean Corpuscular Hemoglobin 31 25-34 PG Mean Corpuscular Hemoglobin Concent 36 32-36 G/DL Red Cell Distribution Width 12.2 10.0-14.5 % Platelet Count 198 130-400 10^3/uL Mean Platelet Volume 11.4 H 7.4-10.4 FL Neutrophils (%) (Auto) 65 42-75 % Lymphocytes (%) (Auto) 24 12-44 % Monocytes (%) (Auto) 9 0-12 % Eosinophils (%) (Auto) 1 0-10 % Basophils (%) (Auto) 1 0-10 % Neutrophils # (Auto) 5.7 1.8-7.8 X 10^3 Lymphocytes # (Auto) 2.1 1.0-4.0 X 10^3 Monocytes # (Auto) 0.8 0.0-1.0 X 10^3 Eosinophils # (Auto) 0.1 0.0-0.3 10^3/uL Basophils # (Auto) 0.1 0.0-0.1 10^3/uL Erythrocyte Sedimentation Rate 1 0-20 MM/HR Sodium Level 138 135-145 MMOL/L Potassium Level 3.9 3.6-5.0 MMOL/L Chloride Level 106 98-107 MMOL/L Carbon Dioxide Level 24 21-32 MMOL/L Anion Gap 8 5-14 MMOL/L Blood Urea Nitrogen 10 7-18 MG/DL Creatinine 0.65 0.60-1.30 MG/DL Estimat Glomerular Filtration Rate > 60 BUN/Creatinine Ratio 15 Glucose Level 87 70-105 MG/DL Lactic Acid Level 0.66 0.50-2.00 MMOL/L Calcium Level 9.1 8.5-10.1 MG/DL Total Bilirubin 0.5 0.1-1.0 MG/DL Aspartate Amino Transf (AST/SGOT) 22 5-34 U/L Alanine Aminotransferase (ALT/SGPT) 20 0-55 U/L Alkaline Phosphatase 53 40-136 U/L C-Reactive Protein High Sensitivity 0.03 0.00-0.50 MG/DL Total Protein 7.6 6.4-8.2 GM/DL Albumin 4.8 H 3.2-4.5 GM/DL Monoscreen NEGATIVE NEGATIVE Test 05/28/17 21:35 05/29/17 05:39 Range/Units CSF Tube Number 4 CSF Appearance CLEAR CSF Color COLORLESS CSF WBC 0 0-5 CELLS CSF RBC 1 H 0-0 CELLS CSF Lymphocytes % CSF Mononuclear WBCs % CSF Polynuclear WBCs % CSF Glucose 47 L 50-80 MG/DL CSF Total Protein 26 15-40 MG/DL White Blood Count 6.1 4.3-11.0 10^3/uL Red Blood Count 3.94 L 4.35-5.85 10^6/uL Hemoglobin 12.1 11.5-16.0 G/DL Hematocrit 35 35-52 % Mean Corpuscular Volume 90 80-99 FL Mean Corpuscular Hemoglobin 31 25-34 PG Mean Corpuscular Hemoglobin Concent 34 32-36 G/DL Red Cell Distribution Width 12.2 10.0-14.5 % Platelet Count 162 130-400 10^3/uL Mean Platelet Volume 11.4 H 7.4-10.4 FL Neutrophils (%) (Auto) 54 42-75 % Lymphocytes (%) (Auto) 34 12-44 % Monocytes (%) (Auto) 11 0-12 % Eosinophils (%) (Auto) 1 0-10 % Basophils (%) (Auto) 1 0-10 % Neutrophils # (Auto) 3.3 1.8-7.8 X 10^3 Lymphocytes # (Auto) 2.1 1.0-4.0 X 10^3 Monocytes # (Auto) 0.7 0.0-1.0 X 10^3 Eosinophils # (Auto) 0.1 0.0-0.3 10^3/uL Basophils # (Auto) 0.0 0.0-0.1 10^3/uL Sodium Level 140 135-145 MMOL/L Potassium Level 4.1 3.6-5.0 MMOL/L Chloride Level 111 H 98-107 MMOL/L Carbon Dioxide Level 23 21-32 MMOL/L Anion Gap 6 5-14 MMOL/L Blood Urea Nitrogen 7 7-18 MG/DL Creatinine 0.67 0.60-1.30 MG/DL Estimat Glomerular Filtration Rate > 60 BUN/Creatinine Ratio 10 Glucose Level 108 H 70-105 MG/DL Calcium Level 7.8 L 8.5-10.1 MG/DL Total Bilirubin 0.5 0.1-1.0 MG/DL Aspartate Amino Transf (AST/SGOT) 20 5-34 U/L Alanine Aminotransferase (ALT/SGPT) 19 0-55 U/L Alkaline Phosphatase 39 L 40-136 U/L C-Reactive Protein High Sensitivity 0.02 0.00-0.50 MG/DL Total Protein 5.3 L 6.4-8.2 GM/DL Albumin 3.6 3.2-4.5 GM/DL Micro Results Microbiology 05/28/17 Blood Culture - Preliminary, Resulted No growth 05/28/17 Blood Culture - Preliminary, Resulted No growth 05/28/17 Gram Stain - Final, Resulted 05/28/17 CSF Culture - Preliminary, Resulted No growth 05/28/17 Throat Culture - Preliminary, Resulted No Beta Strep isolated 05/28/17 Influenza Types A,B Antigen ([place]) - Final, Complete My Orders Orders - OWEN OCASIO Rapid Strep A Screen (05/28/17 16:25) Influenza A And B Antigens (05/28/17 16:25) Chest Pa/Lat (2 View) (05/28/17 16:25) Cbc With Automated Diff (05/28/17 17:13) Comprehensive Metabolic Panel (05/28/17 17:13) Lactic Acid Analyzer (05/28/17 17:13) Monotest (05/28/17 17:13) Tick Panel With Lyme Eia (05/28/17 17:13) Ua Culture If Indicated (05/28/17 17:13) Blood Culture (05/28/17 17:13) Saline Lock/Iv-Start (05/28/17 17:13) Ns Iv 1000 Ml (Sodium Chloride 0.9%) (05/28/17 17:13) Ketorolac Injection (Toradol Injection) (05/28/17 17:13) Bartonella Group (05/28/17 17:14) Ct Abdomen/Pelvis W (05/28/17 18:40) Ct Head Wo (05/28/17 18:40) Orphenadrine Injection (Norflex Injectio (05/28/17 18:40) Ns Iv 1000 Ml (Sodium Chloride 0.9%) (05/28/17 18:40) Iohexol Injection (Omnipaque 350 Mg/Ml 1 (05/28/17 18:45) Ns (Ivpb) (Sodium Chloride 0.9% Ivpb Bag (05/28/17 18:45) Hs C Reactive Protein (05/28/17 20:25) Erythrocyte Sedimentation Rate (05/28/17 20:25) Acetaminophen Tablet (Tylenol Tablet) (05/28/17 20:52) Morphine Injection (Morphine Injection (05/28/17 20:52) Lidocaine 1% Inj 50 Ml (Xylocaine 1% Inj (05/28/17 21:25) Spinal Punctue Lumbar Diagnos (05/28/17 21:42) Csf Culture (05/28/17 21:47) Csf Cell Count (05/28/17 21:47) Csf Glucose (05/28/17 21:47) Csf Total Protein (05/28/17 21:47) Csf Ldh (05/28/17 21:47) Cryptococcus Antigen Csf (05/28/17 21:47) Csf Standard Panel (05/28/17 21:47) Ns W/Kcl 20 Meq/L (Ns Iv W/Kcl 20 Meq/L) (05/28/17 23:10) Medications Given in ED Vital Signs/I&O 05/29/17 05/29/17 05/29/17 07:42 09:00 12:00 Temp 98.9 99.3 Pulse 64 60 Resp 20 20 B/P (MAP) 134/74 (94) 139/78 (98) Pulse Ox 97 100 O2 Delivery Room Air Room Air Room Air 05/29/17 00:00 Intake Total 2000 ml Balance 2000 ml Capillary Refill : Less Than 3 Seconds Blood Pressure Mean: 108 Diagnostic Imaging Diagonstic Imaging: Xray Plain Films/CT/US/NM/MRI: chest Comments FINDINGS: No focal pneumonic consolidation, pleural effusion or pneumothorax. The groundglass opacity seen on prior chest CT are not visible by radiography. Normal heart size and pulmonary vasculature. IMPRESSION: No acute cardiopulmonary process. Dictated by: Dictated on workstation # [id number] Reviewed: Reviewed by Me (radiology report reviewed by me) Diagonstic Imaging: CT Plain Films/CT/US/NM/MRI: head Comments FINDINGS: No hyperdense hemorrhage or space-occupying mass. Fairly symmetric ill -defined hypoattenuation of bilateral posterior occipital and parietal regions. Remainder of the verde-white matter differentiation is well preserved. Basilar cisterns remain patent. No acute calvarial abnormality. Orbits and mastoid air cells are normal. IMPRESSION: 1. Potential changes of acute hypertensive encephalopathy (previously posterior reversible encephalopathy syndrome, PRES), especially given clinical symptoms of headache with blurred vision. Correlation with patient's blood pressure is advised. MRI could be performed for further characterization, as deemed clinically indicated. 2. No acute hemorrhage. Dictated by: Dictated on workstation # [id number] Reviewed: Reviewed by Me (radiology report reviewed by me) Diagonstic Imaging: CT Plain Films/CT/US/NM/MRI: head Comments FINDINGS: Lower chest: Calcified right lower lobe pulmonary nodules compatible with granulomatous infection. No pericardial or pleural effusion. Peritoneum: No free intraperitoneal air or loculated fluid collection. Trace simple free pelvic fluid. Liver and biliary system: The liver is normal. Cholecystectomy. No pathologic biliary duct dilatation. Spleen and Pancreas: Spleen is normal. The pancreas enhances normally without mass lesion or peripancreatic inflammatory changes. Adrenals: Normal. tract: The kidneys enhance normally without suspicious mass or obstruction. There are no enhancement features that would suggest pyelonephritis or intraparenchymal abscess. Urinary bladder is distended without wall thickening. Status post hysterectomy. No adnexal mass. GI tract: Stomach is decompressed. No bowel obstruction. No pericolonic inflammatory changes. Normal appendix. Vasculature and Lymph nodes: Normal caliber aorta. No abdominal or pelvic lymphadenopathy. Musculoskeletal: No concerning osseous lesion. IMPRESSION: 1. No acute inflammatory or obstructive process in the abdomen or pelvis. 2. Normal enhancement patterns of the kidneys without evidence of pyelonephritis or renal abscess. Dictated by: Dictated on workstation # [id number] Reviewed: Reviewed by Me (radiology report reviewed by me) Departure Communication (Admissions) Time/Spoke to Admitting Phy: 20:30 Dr. Choi graciously accepts patient to her medical service for MRI in the AM, repeat labs, and lumbar puncture. all laboratory findings, diagnostic study findings, and plan for admission discussed with the patient and . I have discussed the lumbar puncture with the patient. all risks, benefits, and possible complications associated with the procedure discussed with the patient. All questions were answered at the time of visit. opening pressure of the lumbar puncture was [address] Choi notified. lisinopril 10 mg po daily added to the admission orders. Impression Primary Impression: Encephalitis Additional Impression: Fever Qualified Codes: R50.9 - Fever, unspecified Disposition: ADMITTED INPATIENT Condition: Stable Admissions Decision to Admit Reason: Admit from ER (General) Decision to Admit/Date: May 28, 2017 Time/Decision to Admit Time: 20:30 Departure-Patient Inst. Referrals: [facility] [place] ([place]/Family) Primary Care Physician Scripts Lisinopril (Lisinopril) 10 Mg Tablet 10 MG PO DAILY@0900, #30 TAB Prov: REVA MICHAELS MD 05/29/17 OWEN OCASIO May 28, 2017 16:58
[2017-05-28] MEDS ORDERED: NS IV 1000 ML 1,000 ML IV ONE ×2 (17:13→18:40)
[2017-05-28] MEDS ORDERED: KETOROLAC 30 MG/ML VIAL IVP STA (17:13)
--- NOTE | 2017-05-28 17:13 | Diagnostic Imaging Report ---
CHEST PA/LAT (2 VIEW) INDICATION: Rib pain and fever. COMPARISON: 02/16/2017 FINDINGS: No focal pneumonic consolidation, pleural effusion or pneumothorax. The groundglass opacity seen on prior chest CT are not visible by radiography. Normal heart size and pulmonary vasculature. IMPRESSION: No acute cardiopulmonary process. Dictated by: Dictated on workstation # [id number]
[2017-05-28 17:20] LABS: BILIRUBIN,URINE NEGATIVE (NEGATIVE); CLARITY,URINE CLEAR; COLOR,URINE YELLOW; GLUCOSE, URINE (UA) NEGATIVE (NEGATIVE); KETONES,URINE NEGATIVE (NEGATIVE); LEUKOCYTE ESTERASE ,URINE NEGATIVE (NEGATIVE); NITRITE,URINE NEGATIVE (NEGATIVE); PH,URINE 7 (5-9); PROTEIN,URINE NEGATIVE (NEGATIVE); UROBILINOGEN,URINE NORMAL (NORMAL)
[2017-05-28 17:33] LABS: BACTERIA,URINE TRACE /HPF; SQUAMOUS EPITHELIAL CELL,UR 0-2 /HPF; WBC,URINE 0-2 /HPF
[2017-05-28 17:46] LABS: BASOPHILS # (AUTO) 0.1 10^3/uL (0.0-0.1); BASOPHILS % (AUTO) 1 % (0-10); EOSINOPHILS # (AUTO) 0.1 10^3/uL (0.0-0.3); EOSINOPHILS % (AUTO) 1 % (0-10); HEMATOCRIT 41 % (35-52); HEMOGLOBIN 14.5 G/DL (11.5-16.0); LYMPHOCYTES # (AUTO) 2.1 X 10^3 (1.0-4.0); LYMPHOCYTES % (AUTO) 24 % (12-44); MEAN CORPUSCULAR HEMOGLOBIN 31 PG (25-34); MEAN CORPUSCULAR HGB CONC 36 G/DL (32-36); MEAN CORPUSCULAR VOLUME 87 FL (80-99); MEAN PLATELET VOLUME 11.4 FL (7.4-10.4); MONOCYTES # (AUTO) 0.8 X 10^3 (0.0-1.0); MONOCYTES % (AUTO) 9 % (0-12); NEUTROPHILS # (AUTO) 5.7 X 10^3 (1.8-7.8); NEUTROPHILS % (AUTO) 65 % (42-75); PLATELET COUNT 198 10^3/uL (130-400); RED BLOOD COUNT 4.68 10^6/uL (4.35-5.85); RED CELL DISTRIBUTION WIDTH 12.2 % (10.0-14.5); WHITE BLOOD COUNT 8.7 10^3/uL (4.3-11.0)
[2017-05-28 18:05] LABS: ALANINE AMINOTRANSFERASE 20 U/L (0-55); ALBUMIN 4.8 GM/DL (3.2-4.5); ALKALINE PHOSPHATASE 53 U/L (40-136); BILIRUBIN,TOTAL 0.5 MG/DL (0.1-1.0); BUN/CREATININE RATIO 15; CALCIUM 9.1 MG/DL (8.5-10.1); CARBON DIOXIDE 24 MMOL/L (21-32); CHLORIDE 106 MMOL/L (98-107); CREATININE SERUM 0.65 MG/DL (0.60-1.30); GFR ESTIMATED > 60; GLUCOSE 87 MG/DL (70-105); POTASSIUM 3.9 MMOL/L (3.6-5.0); SODIUM 138 MMOL/L (135-145); TOTAL PROTEIN 7.6 GM/DL (6.4-8.2)
[2017-05-28] MEDS ORDERED: ORPHENADRINE 60 MG/2 ML (NORFLEX) AMP IV STA (18:40)
[2017-05-28] MEDS ORDERED: IOHEXOL 350 MG/ML 100 ML (OMNIPAQUE 350) VIAL IV ONE (18:45)
[2017-05-28] MEDS ORDERED: NS 100 ML (IVPB) BAG IV ONE (18:45)
--- NOTE | 2017-05-28 19:31 | Diagnostic Imaging Report ---
PROCEDURE: CT head without contrast. TECHNIQUE: Multiple contiguous axial images were obtained through the brain without the use of intravenous contrast. INDICATION: Headache with blurred vision. COMPARISON: None available. FINDINGS: No hyperdense hemorrhage or space-occupying mass. Fairly symmetric ill-defined hypoattenuation of bilateral posterior occipital and parietal regions. Remainder of the verde-white matter differentiation is well preserved. Basilar cisterns remain patent. No acute calvarial abnormality. Orbits and mastoid air cells are normal. IMPRESSION: 1. Potential changes of acute hypertensive encephalopathy (previously posterior reversible encephalopathy syndrome, PRES), especially given clinical symptoms of headache with blurred vision. Correlation with patient's blood pressure is advised. MRI could be performed for further characterization, as deemed clinically indicated. 2. No acute hemorrhage. Dictated by: Dictated on workstation # [id number]
--- NOTE | 2017-05-28 19:43 | Diagnostic Imaging Report ---
PROCEDURE: CT abdomen and pelvis with contrast. TECHNIQUE: Multiple contiguous axial images were obtained through the abdomen and pelvis after administration of intravenous contrast. INDICATION: Abdominal pain. COMPARISON: None available. FINDINGS: Lower chest: Calcified right lower lobe pulmonary nodules compatible with granulomatous infection. No pericardial or pleural effusion. Peritoneum: No free intraperitoneal air or loculated fluid collection. Trace simple free pelvic fluid. Liver and biliary system: The liver is normal. Cholecystectomy. No pathologic biliary duct dilatation. Spleen and Pancreas: Spleen is normal. The pancreas enhances normally without mass lesion or peripancreatic inflammatory changes. Adrenals: Normal. tract: The kidneys enhance normally without suspicious mass or obstruction. There are no enhancement features that would suggest pyelonephritis or intraparenchymal abscess. Urinary bladder is distended without wall thickening. Status post hysterectomy. No adnexal mass. GI tract: Stomach is decompressed. No bowel obstruction. No pericolonic inflammatory changes. Normal appendix. Vasculature and Lymph nodes: Normal caliber aorta. No abdominal or pelvic lymphadenopathy. Musculoskeletal: No concerning osseous lesion. IMPRESSION: 1. No acute inflammatory or obstructive process in the abdomen or pelvis. 2. Normal enhancement patterns of the kidneys without evidence of pyelonephritis or renal abscess. Dictated by: Dictated on workstation # [id number]
[2017-05-28] MEDS ORDERED: ACETAMINOPHEN 500 MG TAB (TYLENOL) PO STA (20:52)
[2017-05-28] MEDS ORDERED: morphine INJ 10 MG/ML 1ML (SYR OR VIAL) IVP STA (20:52)
[2017-05-28] MEDS ORDERED: LIDOCAINE 1% INJ 50 ML (XYLOCAINE) VIAL ONE (21:25)
--- NOTE | 2017-05-28 21:49 | Anesthesia-Procedure Note ---
Procedures/Interventions Procedure Start/Stop/Diagnosis Date of Procedure: May 28, 2017 Start Time: 21:20 Stop Time: 21:35 Lumbar Puncture Discussed Risk,Benefits: Yes Patient Consents: Yes Position: Lying, L4-5, Left Sterile Technique: Yes Opening Pressure: 27 Fluid Color: clear Spinal Needle Used: 20g Quinke 3 1/2inch Procedure Notes head ct normal. platelet count RAFFY Dawson CRNA May 28, 2017 21:49
[2017-05-28 22:00] VITALS: BP 158/94
[2017-05-28 22:11] LABS: APPEARANCE,CSF CLEAR
[2017-05-28 22:12] LABS: COLOR,CSF COLORLESS; CSF TUBE NUMBER 4; RED BLOOD CELL,CSF 1 CELLS (0-0); WHITE BLOOD CELL,CSF 0 CELLS (0-5)
[2017-05-28 22:31] LABS: CSF GLUCOSE 47 MG/DL (50-80); CSF TOTAL PROTEIN 26 MG/DL (15-40)
[2017-05-28] MEDS ORDERED: NS W/KCL 20 MEQ/L 1,000 ML IV ONE (23:10)
[2017-05-28 23:13] VITALS: BP 146/85
[2017-05-28] MEDS ORDERED: ACETAMINOPHEN 500 MG TAB (TYLENOL) PO PRN (23:30)
[2017-05-28] MEDS ORDERED: fentaNYL INJECTION 100 MCG/2 ML AMP IV PRN (23:30)
[2017-05-28] MEDS ORDERED: KETOROLAC 30 MG/ML VIAL IVP PRN (23:30)
[2017-05-28] MEDS: NS W/KCL 20 MEQ/L 1,000 ML IV SCH (23:42)
[2017-05-29] MEDS: ONDANSETRON 4 MG/2 ML (SDV) Z0FRAN IV PRN ×2 (00:01→08:46)
[2017-05-29 04:00] VITALS: BP 137/78
[2017-05-29] MEDS: NS W/KCL 20 MEQ/L 1,000 ML IV SCH ×2 (05:43→12:30)
[2017-05-29 06:28] LABS: BASOPHILS % (AUTO) 1 % (0-10); EOSINOPHILS # (AUTO) 0.1 10^3/uL (0.0-0.3); EOSINOPHILS % (AUTO) 1 % (0-10); HEMATOCRIT 35 % (35-52); HEMOGLOBIN 12.1 G/DL (11.5-16.0); LYMPHOCYTES # (AUTO) 2.1 X 10^3 (1.0-4.0); LYMPHOCYTES % (AUTO) 34 % (12-44); MEAN CORPUSCULAR HEMOGLOBIN 31 PG (25-34); MEAN CORPUSCULAR HGB CONC 34 G/DL (32-36); MEAN CORPUSCULAR VOLUME 90 FL (80-99); MEAN PLATELET VOLUME 11.4 FL (7.4-10.4); MONOCYTES # (AUTO) 0.7 X 10^3 (0.0-1.0); MONOCYTES % (AUTO) 11 % (0-12); NEUTROPHILS # (AUTO) 3.3 X 10^3 (1.8-7.8); NEUTROPHILS % (AUTO) 54 % (42-75); PLATELET COUNT 162 10^3/uL (130-400); RED BLOOD COUNT 3.94 10^6/uL (4.35-5.85); RED CELL DISTRIBUTION WIDTH 12.2 % (10.0-14.5); WHITE BLOOD COUNT 6.1 10^3/uL (4.3-11.0)
[2017-05-29 06:44] LABS: ALANINE AMINOTRANSFERASE 19 U/L (0-55); ALBUMIN 3.6 GM/DL (3.2-4.5); ALKALINE PHOSPHATASE 39 U/L (40-136); BILIRUBIN,TOTAL 0.5 MG/DL (0.1-1.0); BUN/CREATININE RATIO 10; CALCIUM 7.8 MG/DL (8.5-10.1); CARBON DIOXIDE 23 MMOL/L (21-32); CHLORIDE 111 MMOL/L (98-107); CREATININE SERUM 0.67 MG/DL (0.60-1.30); GFR ESTIMATED > 60; GLUCOSE 108 MG/DL (70-105); POTASSIUM 4.1 MMOL/L (3.6-5.0); SODIUM 140 MMOL/L (135-145); TOTAL PROTEIN 5.3 GM/DL (6.4-8.2)
[2017-05-29 07:42] VITALS: BP 134/74
[2017-05-29] MEDS: HYDROcodone/APAP 5 MG/325 MG (LORTAB) TAB PO PRN ×2 (08:47→12:40)
[2017-05-29] MEDS ORDERED: FAMOTIDINE 20 MG (PEPCID) TABLET PO SCH (09:00)
[2017-05-29] MEDS ORDERED: lisINopril 10 MG (PRINIVIL) TABLET PO SCH (09:00)
[2017-05-29] MEDS ORDERED: TIZA4TAB3 PO (11:24)
[2017-05-29] MEDS ORDERED: DIAZ5TAB3 PO (11:24)
[2017-05-29] MEDS ORDERED: FOLI200T11 PO (11:31)
[2017-05-29] MEDS ORDERED: IBUP-2055 PO (11:31)
[2017-05-29] MEDS ORDERED: CHOL200078 PO (11:31)
[2017-05-29] MEDS ORDERED: ACET-2267 PO (11:31)
[2017-05-29] MEDS ORDERED: INUL1TAB4 PO (11:31)
[2017-05-29 12:00] VITALS: BP 139/78
[2017-05-29] MEDS ORDERED: GADOBUTROL 7.5 MMOL/7.5 ML (GADAVIST) VIAL IV ONE (13:15)
--- NOTE | 2017-05-29 14:03 | Diagnostic Imaging Report ---
PROCEDURE: MR imaging of the brain with and without contrast. TECHNIQUE: Multiplanar/multisequence MR imaging of the brain was performed with and without contrast. INDICATION: Headache and blurred vision with fever and body pain x 1 month. COMPARISON: Head CT from one day earlier. FINDINGS: The ventricles appear to be parallel in appearance on the axial sequences. The sagittal sequence does show the body of the corpus callosum to be very thin, suggestive of hypoplasia. The rostrum and splenium appear to be formed. The sulci are unremarkable. Specifically, no edema or evidence of diffusion restriction in the occipital lobes is identified to account for the questionable low-density on the recent CT. No diffusion restriction is identified. No acute intra-axial or extra-axial hemorrhage is detected. The normal expected flow-voids within the carotid siphons are seen. The post contrast images demonstrate a developmental venous anomaly in the right cerebellar hemisphere. IMPRESSION: 1. No acute intracranial process is detected. No findings to suggest acute hypertensive encephalopathy are identified. 2. 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 3. 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 Dictated by: Dictated on workstation # [id number]
--- NOTE | 2017-05-29 14:08 | Short Stay Summary ---
History of Present Illness History of Present Illness Reason for visit/HPI 41 yo F that presented to ER with relapsing fevers and cold symptoms for the last week. States that she has just really felt bad with chills and body aches. No sick contacts. States that she has been tapering her pain medications but these symptoms were present prior to that. Denies any new medications or dose changes. Denies any recent traveling. Denies any tick bites or outdoor activities. States that she has a personal h/o elevated blood pressure but has not been on meds for years. Tolerating PO diet. No N/V, diarrhea or constipation. Date of Admission May 28, 2017 at 20:25 Date of Discharge 05/29/2017 Time Seen by Provider: 10:15 Attending Physician Angeles Choi DO Admitting Physician Constantine Mcguire - [facility] Allergies and Home Medications Allergies Coded Allergies: No Known Drug Allergies (Verified , 08/25/16) Home Medications Acetaminophen 500 Mg Tablet, 1,000 MG PO Q8H PRN for PAIN-MILD, (Reported) TAKES 2 (500MG) TABLETS - ALTERNATES WITH IBU Cholecalciferol (Vitamin D3) 2,000 Unit Tab.chew, 2,000 UNIT PO DAILY, (Reported ) Diazepam 5 Mg Tablet, 5 MG PO QID PRN for ANXIETY, (Reported) Escitalopram Oxalate 20 Mg Tablet, 20 MG PO DAILY, (Reported) Folic Acid/Multivit-Minerals 200 Mcg Tab.chew, 1 TAB.CHEW PO DAILY, (Reported) Hydrocodone/Acetaminophen 1 Each Tablet, 1 TAB PO BID PRN for PAIN-MODERATE, ( Reported) Ibuprofen 200 Mg Tablet, 800 MG PO Q8H PRN for PAIN-MILD, (Reported) TAKES 4 (200MG) TABLETS - ALTERNATES WITH TYLENOL Inulin/Chromium Picolinate 1 Each Tab.chew, 1 TAB.CHEW PO DAILY, (Reported) Lisinopril 10 Mg Tablet, 10 MG PO DAILY@0900 Prescribed by: REVA MICHAELS on 05/29/17 1435 Ondansetron 8 Mg Tab.rapdis, 8 MG PO Q6H PRN for NAUSEA/VOMITING-1ST LINE Prescribed by: OWEN OCASIO on 08/06/16 1728 Rizatriptan Benzoate 5 Mg Tablet, 5 MG PO UD PRN for MIGRAINE, (Reported) Tizanidine HCl 4 Mg Tablet, 4 MG PO TID PRN for MUSCLE SPASMS, (Reported) Patient Home Medication List Home Medication List Reviewed: Yes Past Sloempb-Biiuvo-Httggm Hx Patient Social History Living Status: Living at home Employed/Student: employed Alcohol Use: Occasionally Uses Recreational Drug Use: No Smoking Status: Never a Smoker Physical Abuse Screen: No Sexual Abuse: No Recent Foreign Travel: No Contact w/other who traveled: No Recent Hopitalizations: No Recent Infectious Disease Expo: No Immunizations Up To Date Pediatric: Yes Seasonal Allergies Seasonal Allergies: Yes Surgeries Yes (divated septum sx, hemorrhoidectomy) Gallbladder, Hysterectomy, Tonsillectomy Respiratory No Cardiovascular Yes Hypertension Neurological No 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 System : No Hx 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 Disorders: 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 Genitourinary No Gastrointestinal Yes (bloody stools) Chronic Constipation, Hemorrhoids, Chronic Diarrhea Musculoskeletal Yes Chronic Back Pain Endocrine History of Endocrine Disorders: Yes (THYROID NODULES) HEENT History of HEENT Disorders: No Cancer No Psychosocial History of Psychiatric Problem: Yes Behavioral Health Disorders: Anxiety, Depression Integumentary History of Skin or Integumenta: No Blood Transfusions History of Blood Disorders: No Family Medical History Significant Family History: No Pertinent Family Hx Other Significan Family Hx: personal h/o RMSF approximately 4-5 years ago. Family Hx: Arthritis 19 MOTHER Cardiovascular disease 19 MOTHER MATERNAL GRANDFATHER Myocardial infarction MATERNAL GRANDFATHER ( FROM MS) MATERNAL UNCLE (3 HEART ATTACKS) Neoplasm MATERNAL AUNT (BREAST CANCER) Constitutional: chills, malaise, No weakness EENTM: nose congestion, No ear discharge, No hearing loss, No mouth pain, No throat pain Respiratory: no symptoms reported, No cough, No dyspnea on exertion, No short of breath Cardiovascular: no symptoms reported, No chest pain, No edema, No palpitations Gastrointestinal: No abdominal pain, loss of appetite, No nausea, No vomiting Genitourinary: no symptoms reported, No dysuria, No frequency, No hematuria : No Musculoskeletal: joint pain, No joint swelling Skin: no symptoms reported, No lesions, No rash Psychiatric/Neurological: No Symptoms Reported Physical Exam Vital Signs Vital Signs - First Documented 05/28/17 16:01 Temp 98.2 Pulse 62 Resp 18 B/P (MAP) 141/91 (108) Pulse Ox 99 O2 Delivery Room Air Capillary Refill : Less Than 3 SecondsLess Than 3 Seconds General Appearance: No Apparent Distress, WD/WN HEENT: PERRL/EOMI, Pharynx Normal Neck: Full Range of Motion, Non Tender, Supple Respiratory: Chest Non Tender, Lungs Clear, Normal Breath Sounds, No Accessory Muscle Use, No Respiratory Distress Cardiovascular: Regular Rate, Rhythm, No Murmur, Normal Peripheral Pulses Gastrointestinal: Normal Bowel Sounds, No Organomegaly, Non Tender, Soft Back: Normal Inspection, No CVA Tenderness Extremity: Normal Capillary Refill, Non Tender, No Calf Tenderness, No Pedal Edema Neurologic/Psychiatric: Alert, Oriented x3, No Motor/Sensory Deficits, Normal 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/Affect, 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 Norm as Tested Skin: Normal Color, Warm/Dry Lymphatic: No Adenopathy Clinical Quality Measures DVT/VTE Risk/Contraindication: Risk Factor Score Per Nursin RFS Level Per Nursing on Admit: 1=Low/No VTE PPX Short Stay Diagnosis Discharge Diagnosis-Short Stay Admission Diagnosis: Fever HTN Abnormal Head CT Final Discharge Diagnosis: Fever HTN Abnormal Head CT Dysgenesis of Corpus Callosum Conclusion Labs Laboratory Tests Test 05/28/17 16:44 05/28/17 17:15 05/28/17 17:17 05/28/17 18:05 Range/Units Group A Streptococcus Screen NEGATIVE NEGATIVE Urine Color YELLOW Urine Clarity CLEAR Urine pH 7 5-9 Urine Specific [place] 1.010 L 1.016-1.022 Urine Protein NEGATIVE NEGATIVE Urine Glucose (UA) NEGATIVE NEGATIVE Urine Ketones NEGATIVE NEGATIVE Urine Nitrite NEGATIVE NEGATIVE Urine Bilirubin NEGATIVE NEGATIVE Urine Urobilinogen NORMAL NORMAL MG/DL Urine Leukocyte Esterase NEGATIVE NEGATIVE Urine RBC (Auto) NEGATIVE NEGATIVE Urine RBC NONE /HPF Urine WBC 0-2 /HPF Urine Squamous Epithelial Cells 0-2 /HPF Urine Renal Epithelial Cells NONE /HPF Urine Crystals NONE /LPF Urine Bacteria TRACE /HPF Urine Casts NONE /LPF Urine Mucus NEGATIVE /LPF Urine Culture Indicated NO White Blood Count 8.7 4.3-11.0 10^3/uL Red Blood Count 4.68 4.35-5.85 10^6/uL Hemoglobin 14.5 11.5-16.0 G/DL Hematocrit 41 35-52 % Mean Corpuscular Volume 87 80-99 FL Mean Corpuscular Hemoglobin 31 25-34 PG Mean Corpuscular Hemoglobin Concent 36 32-36 G/DL Red Cell Distribution Width 12.2 10.0-14.5 % Platelet Count 198 130-400 10^3/uL Mean Platelet Volume 11.4 H 7.4-10.4 FL Neutrophils (%) (Auto) 65 42-75 % Lymphocytes (%) (Auto) 24 12-44 % Monocytes (%) (Auto) 9 0-12 % Eosinophils (%) (Auto) 1 0-10 % Basophils (%) (Auto) 1 0-10 % Neutrophils # (Auto) 5.7 1.8-7.8 X 10^3 Lymphocytes # (Auto) 2.1 1.0-4.0 X 10^3 Monocytes # (Auto) 0.8 0.0-1.0 X 10^3 Eosinophils # (Auto) 0.1 0.0-0.3 10^3/uL Basophils # (Auto) 0.1 0.0-0.1 10^3/uL Erythrocyte Sedimentation Rate 1 0-20 MM/HR Sodium Level 138 135-145 MMOL/L Potassium Level 3.9 3.6-5.0 MMOL/L Chloride Level 106 98-107 MMOL/L Carbon Dioxide Level 24 21-32 MMOL/L Anion Gap 8 5-14 MMOL/L Blood Urea Nitrogen 10 7-18 MG/DL Creatinine 0.65 0.60-1.30 MG/DL Estimat Glomerular Filtration Rate > 60 BUN/Creatinine Ratio 15 Glucose Level 87 70-105 MG/DL Lactic Acid Level 0.66 0.50-2.00 MMOL/L Calcium Level 9.1 8.5-10.1 MG/DL Total Bilirubin 0.5 0.1-1.0 MG/DL Aspartate Amino Transf (AST/SGOT) 22 5-34 U/L Alanine Aminotransferase (ALT/SGPT) 20 0-55 U/L Alkaline Phosphatase 53 40-136 U/L C-Reactive Protein High Sensitivity 0.03 0.00-0.50 MG/DL Total Protein 7.6 6.4-8.2 GM/DL Albumin 4.8 H 3.2-4.5 GM/DL Monoscreen NEGATIVE NEGATIVE Test 05/28/17 21:35 05/29/17 05:39 Range/Units CSF Tube Number 4 CSF Appearance CLEAR CSF Color COLORLESS CSF WBC 0 0-5 CELLS CSF RBC 1 H 0-0 CELLS CSF Lymphocytes % CSF Mononuclear WBCs % CSF Polynuclear WBCs % CSF Glucose 47 L 50-80 MG/DL CSF Total Protein 26 15-40 MG/DL White Blood Count 6.1 4.3-11.0 10^3/uL Red Blood Count 3.94 L 4.35-5.85 10^6/uL Hemoglobin 12.1 11.5-16.0 G/DL Hematocrit 35 35-52 % Mean Corpuscular Volume 90 80-99 FL Mean Corpuscular Hemoglobin 31 25-34 PG Mean Corpuscular Hemoglobin Concent 34 32-36 G/DL Red Cell Distribution Width 12.2 10.0-14.5 % Platelet Count 162 130-400 10^3/uL Mean Platelet Volume 11.4 H 7.4-10.4 FL Neutrophils (%) (Auto) 54 42-75 % Lymphocytes (%) (Auto) 34 12-44 % Monocytes (%) (Auto) 11 0-12 % Eosinophils (%) (Auto) 1 0-10 % Basophils (%) (Auto) 1 0-10 % Neutrophils # (Auto) 3.3 1.8-7.8 X 10^3 Lymphocytes # (Auto) 2.1 1.0-4.0 X 10^3 Monocytes # (Auto) 0.7 0.0-1.0 X 10^3 Eosinophils # (Auto) 0.1 0.0-0.3 10^3/uL Basophils # (Auto) 0.0 0.0-0.1 10^3/uL Sodium Level 140 135-145 MMOL/L Potassium Level 4.1 3.6-5.0 MMOL/L Chloride Level 111 H 98-107 MMOL/L Carbon Dioxide Level 23 21-32 MMOL/L Anion Gap 6 5-14 MMOL/L Blood Urea Nitrogen 7 7-18 MG/DL Creatinine 0.67 0.60-1.30 MG/DL Estimat Glomerular Filtration Rate > 60 BUN/Creatinine Ratio 10 Glucose Level 108 H 70-105 MG/DL Calcium Level 7.8 L 8.5-10.1 MG/DL Total Bilirubin 0.5 0.1-1.0 MG/DL Aspartate Amino Transf (AST/SGOT) 20 5-34 U/L Alanine Aminotransferase (ALT/SGPT) 19 0-55 U/L Alkaline Phosphatase 39 L 40-136 U/L C-Reactive Protein High Sensitivity 0.02 0.00-0.50 MG/DL Total Protein 5.3 L 6.4-8.2 GM/DL Albumin 3.6 3.2-4.5 GM/DL Conclusion/Plan 41 yo F admitted for Obs with concerns for encephalitis Fever - No fevers during this admission, likely viral in cause - Viral panel pending HTN - Lisinopril started daily, continue to monitor blood pressure Abnormal Head CT - MRI showed Dysgenesis of Corpus Callosum, 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
[2017-05-29] MEDS ORDERED: LISI10TA2 PO (14:35)
--- NOTE | 2017-05-29 14:38 | Discharge Instructions ---
Discharge [facility] Discharge Medications New, Converted or Re-Newed RX: Transmitted to Pharmacy ([facility]) New Medications: Lisinopril (Lisinopril) 10 Mg Tablet 10 MG PO DAILY@0900, #30 TAB Continued Medications: Acetaminophen (Tylenol Extra Strength) 500 Mg Tablet 1000 MG PO Q8H PRN for PAIN-MILD, TAB TAKES 2 (500MG) TABLETS - ALTERNATES WITH IBU Cholecalciferol (Vitamin D3) (Vitamin D3) 2,000 Unit Tab.chew 2000 UNIT PO DAILY, TAB Diazepam (Diazepam) 5 Mg Tablet 5 MG PO QID PRN for ANXIETY, TAB Escitalopram Oxalate (Escitalopram Oxalate) 20 Mg Tablet 20 MG PO DAILY, TAB Folic Acid/Multivit-Minerals (Women's Multivitamin Gummies) 200 Mcg Tab.chew 1 TAB.CHEW PO DAILY, TAB Hydrocodone/Acetaminophen (Hydrocodone-Acetamin 5-325 mg) 1 Each Tablet 1 TAB PO BID PRN for PAIN-MODERATE, TAB Ibuprofen (Ibuprofen) 200 Mg Tablet 800 MG PO Q8H PRN for PAIN-MILD, TAB TAKES 4 (200MG) TABLETS - ALTERNATES WITH TYLENOL Inulin/Chromium Picolinate (Fiber Gummies) 1 Each Tab.chew 1 TAB.CHEW PO DAILY, TAB Ondansetron (Ondansetron Odt) 8 Mg Tab.rapdis 8 MG PO Q6H PRN for NAUSEA/VOMITING-1ST LINE, #10 TAB 0 Refills Rizatriptan Benzoate (Rizatriptan) 5 Mg Tablet 5 MG PO UD PRN for MIGRAINE, TAB Tizanidine HCl (Tizanidine HCl) 4 Mg Tablet 4 MG PO TID PRN for MUSCLE SPASMS, TAB Patient Instructions Goal/Follow Up Appt: You have a hospital follow up appt with Melody on 06/02 @ 2PM in [place] Patient Instructions: - Make sure to follow up on Viral panel from hospital, it will take a few weeks to return Return to The Hospital For: - Shortness of breath - Chest pain - Unable to tolerate medications Activity & Diet Discharge Diet: Low Sodium Diet Activity as Tolerated: Yes Copy Copies To 1: [facility]: Melody in [place] REVA MICHAELS MD May 29, 2017 14:38
== END 2017-05-29 14:36 | disposition home or self-care (01) ==
LOC: EDUNIT# 15:58 → ER 16:00 → UNDOADMOB 20:25 → 4TH 20:25 → UNDODISOB 05-29 15:00
PROVIDERS: ADMIT Family Medicine; ATTEND Family Medicine
DX: R50.9 Fever, unspecified (principal); I10 Essential (primary) hypertension; R93.0 Abnormal findings on diagnostic imaging of skull and head, not elsewhere classified; Q04.0 Congenital malformations of corpus callosum
CPT/HCPCS: 36415; 70450; 70553; 71046; 74177; 80053; 81000; 82945; 83605; 83615; 84157; 85025; 85652; 86141; 86308; 86611; 86618; 86666; 86668; 86757; 87040; 87070; 87205; 87430; 87804; 89051; 96361; 96374; 96375; G0378

== ENCOUNTER → 2017-07-12 | Outpatient (CLI) | payer BC ==
[~2017-07-12] MED LIST changes: +ACET-2267 PO; +CHOL200078 PO; +CYCL5TAB; +DIAZ5TAB3 PO; +FOLI200T11 PO; +HYDR-3812 PO; +IBUP-2055 PO; +INUL1TAB4 PO; +LISI10TA2 PO; +RIZA5TAB28 PO; +TIZA4TAB3 PO
== END ==
LOC: LAB 16:30
PROVIDERS: ATTEND Nurse Practitioner Family
DX: Z86.19 Personal history of other infectious and parasitic diseases (principal)
CPT/HCPCS: 36415; 86663; 86664; 86665

== ENCOUNTER → 2017-09-14 | Outpatient (CLI) | payer BC ==
--- NOTE | 2017-09-14 12:36 | Diagnostic Imaging Report ---
EXAMINATION: DEXA scan. INDICATION: Screening for osteoporosis. COMPARISON: There are no prior studies available for comparison. FINDINGS: The bone mineral density of the hips and spine was measured. The T score for the spine is -2.2. This does indicate severe osteopenia. The T score for the left hip is -0.8 and for the right hip -0.7. These values fall within the range of normal. IMPRESSION: The bone mineral density of the hips is within normal limits but there is severe osteopenia of the spine. Dictated by: Dictated on workstation # [id number]
--- NOTE | 2017-09-14 14:23 | Diagnostic Imaging Report ---
EXAMINATION: Digital mammogram bilateral screening with 3D tomosynthesis. INDICATION: Screening. COMPARISON: This study was compared to the prior exam of 08/11/2015. At this time, there are no current complaints. The current study was also evaluated with a Computer Aided Detection (CAD) system. FINDINGS: The fibroglandular tissue in both breasts is heterogeneously dense. This does limit the sensitivity of this exam. In the interval since the prior exam, a well-defined 0.7 x 1.3 cm oval density has developed in the 8 o'clock position of the left breast, roughly 6 cm deep to the nipple. I do suspect that this is a benign process, but I would recommend that a compression view of this area be obtained to better evaluate the margins of this density. Ultrasound should also be performed. There is no primary or secondary sign of malignancy involving either breast otherwise. IMPRESSION: Additional mammographic views and ultrasound of the left breast would be recommended for further study. ACR BI-RADS Category 0: Incomplete. (Needs additional imaging evaluation). Result letter will be mailed to the patient. Note: At least 10% of breast cancer is not imaged by mammography. Dictated by: Dictated on workstation # [id number]
== END ==
LOC: RAD 10:05
PROVIDERS: ATTEND Nurse Practitioner Family
DX: Z12.31 Encounter for screening mammogram for malignant neoplasm of breast (principal); Z13.820 Encounter for screening for osteoporosis; M85.88 Other specified disorders of bone density and structure, other site
CPT/HCPCS: 77067; 77080

== ENCOUNTER → 2017-09-29 | Outpatient (CLI) | payer BC ==
--- NOTE | 2017-09-29 13:15 | Diagnostic Imaging Report ---
Indication: Left breast density. Patient presents for additional views. Comparison is made with recent screening study from 09/14/2017. Unilateral left 2-D and 3-D diagnostic mammography was performed including spot compression CC and MLO views as well as conventional 90 degree lateral view. Previously noted density in the medial and slightly lower left breast persists. This has fairly circumscribed margins may represent a cyst. Even so, further evaluation with ultrasound is recommended. No other masses identified. No suspicious calcifications are seen. Impression: BI-RADS zero. Left breast density 8 o'clock location, with circumscribed margins. Further evaluation with ultrasound is recommended. Dictated by: Dictated on workstation # [id number]
--- NOTE | 2017-09-29 16:10 | Diagnostic Imaging Report ---
INDICATION: Left breast density. Patient presents for additional views. COMPARISON: Correlation is made with diagnostic mammogram earlier the same day and screening mammogram from 09/14/2017. FINDINGS: Sonographic interrogation of the medial left breast was performed. There is a cluster of cysts at the 9:30 location of the left breast, 5 cm from the nipple, measuring 8 mm x 10 mm x 9 mm. This likely accounts for the mammographic density. A smaller cyst is seen at the 7 o'clock location, 3 cm from the nipple measuring 6 mm x 4 mm x 9 mm. No internal vascularity is seen. No solid mass is identified. IMPRESSION: Left breast cysts accounting for the mammographic density. Patient may return to routine annual screening mammography. ACR BI-RADS Category 2: Benign findings. Dictated by: Dictated on workstation # [id number]
== END ==
LOC: RAD 12:42
PROVIDERS: ATTEND Nurse Practitioner Family
DX: N60.02 Solitary cyst of left breast (principal)
CPT/HCPCS: 76642

== ENCOUNTER 2017-10-16 11:59 | Outpatient (RCR) | payer BC ==
[~2017-10-16 11:59] MED LIST changes: +PANT40TA2 PO
[2017-10-17] MEDS ORDERED: LISI10TA2 PO (13:24)
[2017-10-18] MEDS ORDERED: VANC125S PO (13:39)
== END 2017-10-20 | disposition home or self-care (01) ==
LOC: LAB 11:59
PROVIDERS: ATTEND Surgery
DX: R19.8 Other specified symptoms and signs involving the digestive system and abdomen (principal)
CPT/HCPCS: 87045; 87046; 87324; 87328; 87329; 87449; 87493

== ENCOUNTER 2017-11-06 11:55 | Inpatient (IN) | payer BC ==
[~2017-11-06] VITALS: Ht 162.6 cm; Wt 77.2 kg
[~2017-11-06 11:55] MED LIST changes: +VANC125S PO
[2017-11-06 12:00] VITALS: BP 109/69
--- OUTSIDE RECORDS SUMMARY | 2017-11-06 12:22 | XMS REPORT ---
Author Author MICHAEL CORREIA Organization 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 Name Role Phone MIHCAEL CORREIA Unavailable PROBLEMS Type Condition ICD9-CM Code [id number] Code Onset Dates Condition Status SNOMED Code Problem Major depressive disorder, single episode, unspecified F32.9 Active 78057660 Problem Thyroid nodule E04.1 Active 55618409 Problem Severe single current episode of major depressive disorder, without psychotic features F32.2 Active 52389248 Problem Severe episode of recurrent major depressive disorder, without psychotic features F33.2 Active 394242027985 Problem Chronic tension-type headache, intractable G44.221 Active 321481930 Problem Constipation, chronic K59.09 Active 719732542 Problem Essential hypertension I10 Active 68209116 Problem Non morbid obesity due to excess calories E66.09 Active 548425625 Problem 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 Active 752096692 Problem RMSF (Frazee spotted 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 Active 613216654 Problem Abnormal brain MRI R90.89 Active 454758513 Problem Abnormal mammogram of left breast R92.8 Active 448844813 Problem Diarrhea, unspecified type R19.7 Active 77886284 Problem Controlled substance agreement signed Z79.899 Active 352402037 Problem Other chronic pain G89.29 Active 989315815 Problem Scoliosis of thoracolumbar spine, unspecified scoliosis type M41.9 Active 934640607 Problem 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 Active 544859024 Problem Recurrent fever A68.9 Active 834447942 Problem Epigastric abdominal pain R10.13 Active 93642326 Problem Abnormal mammogram R92.8 Active 755622581 Problem Pain in thoracic spine M54.6 Active 399995184731924 Problem Cervicalgia M54.2 Active 7489073048737 Problem Radicular low back pain M54.10 Active 09364257 Problem Muscle spasm M62.838 Active 46686965 Problem Other chronic pain G89.29 Active 181698237 Problem Fibromyalgia M79.7 Active 633786864 Problem Anxiety F41.9 Active 951339097 Problem Acute bilateral low back pain with sciatica, sciatica laterality unspecified M54.40 Active 465602945 ALLERGIES No Information ENCOUNTERS Encounter Location Date Diagnosis [facility] [address] [id number] [id number] Sep, [facility] [address]00565[address] [id number] Sep, [facility] [address] [facility] [address] [id number] [place] [id number] Sep, [facility] [address] [id number] [address] Sep, Fibromyalgia M79.7 [facility] [address] [id number] [place] [id number] Sep, Epigastric abdominal pain R10.13 and Diarrhea, unspecified type R19.7 [facility] [id number][place] [id number] Sep, Abnormal mammogram of left breast R92.8 [facility] [id number], [place] [id number] Sep, Abnormal mammogram R92.8 [facility] [id number], [place] [id number] Sep, [facility] [id number] [place] [address] [id number] Aug, Abnormal mammogram R92.8 [facility] [address] [id number][place] [id number] Aug, [facility] [address] [id number] [place] [address] [id number] Aug, [facility] [id number], [place] [id number] Aug, Screening breast examination Z12.31 and At risk for bone density loss Z91.89 [facility] [place] [address] [id number][place] [id number] Aug, [facility] [place] [address] [id number] [place] [id number] Aug, [facility] [place] [address] [id number] [place] [id number] Aug, Other chronic pain G89.29 [facility] [place] [address] [id number], [place] [id number] Aug, [facility] [place] [address] [id number][place] [id number] Aug, [facility] [place] [address] [id number] [place] [id number] Aug, [facility] [place] [address] [id number] [place] [phone] Aug, Fibromyalgia M79.7 ; Anxiety F41.9 ; High risk medication use Z79.899 ; Other chronic pain G89.29 ; Recurrent fever A68.9 ; 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 and RMSF (Frazee spotted 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 [facility] [place] [address] [id number], [place] [id number] Jul, [facility] [place] [address] [id number], [place] [id number] Jul, [facility] [place] [address] [id number], [place] [id number] Jul, Muscle spasm M62.838 and Anxiety F41.9 [facility] [place] [address] [id number][place] [id number] Jul, [facility] [place] [address] [id number], [place] [id number] Jul, [facility] [place] [address] [id number], [place] [id number] Jul, [facility] [address] [id number] [place] [id number] Jul, [facility] [place] [address] [id number][place] 889222513 Jul, [facility] [place] [address] [id number], [place] [id number] Jul, [facility] [place] [address] [id number] [place] [id number] Jul, [facility] [place] [address] [id number] [place] [id number] Jul, [facility] [place] [address] [id number] [place] [id number] Jul, [facility] [place] [address] [id number] [place] [id number] Jul, [facility] [place] [address] [id number] [place] [id number] Jul, Radicular low back pain M54.10 ; Other chronic pain G89.29 and Fibromyalgia M79.7 [facility] [place] [address] [id number] [place] [id number] Jul, [facility] [place] [address] [id number] [place] [id number] Jul, [facility] [place] [address] [id number], [place] [id number] Jul, [facility] [place] [address] [id number] [place] [phone] June, [facility] [place] [address] [id number], [place] [phone] June, [facility] [place] [address] [id number] [place] [id number] June, 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 ; Recurrent fever A68.9 ; Other chronic pain G89.29 ; Radicular low back pain M54.10 ; Chronic tension- type headache, intractable G44.221 ; Essential hypertension I10 ; RMSF (Frazee spotted 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 and Abnormal brain MRI R90.89 [facility] [place] [address] [id number], [place] [phone] June, [facility] [place] [id number] [id number] June, 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 and RMSF (Frazee spotted 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 [facility] [place] [address] [id number] [place] [phone] June, [facility] [place] [address] [id number] [place] [id number] June, [facility] [place] [id number] [place] [address] [id number] June, RMSF (Frazee spotted 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 and 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 [facility] [place] [address] [id number] [place] [address] [id number] June, [facility] [place] [address] [id number] [place] [address] [id number] June, [facility] [place] [id number] [place] [address] [id number] June, [facility] [id number] [place] [address] June, [facility] [place] [id number] [place] [address] [id number] June, [facility] [id number] [place] [address] June, Radicular low back pain M54.10 and Scoliosis of thoracolumbar spine, unspecified scoliosis type M41.9 [facility] [place] [address] [id number], [place] [phone] June, [facility] [place] [id number], [place] [id number] June, [facility] [place] [address] [id number], [place] [id number] June, [facility] [place] [address] [id number], [place] [id number] June, [facility] [place] [id number] [place] [address] [id number] June, RMSF (Frazee spotted 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 [facility] [place] [address] [id number], [place] [id number] June, [facility] [place] [address] [id number], [place] [id number] June, Muscle spasm M62.838 [facility] [id number], [place] [id number] June, [facility] [id number] [place] [address] [id number] May, [facility] [id number], [place] [id number] May, [facility] [id number] [place] [address] [id number] May, [facility] [address] [facility] [address] [id number] [place] [id number] May, RMSF (Frazee spotted 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 [facility] [address] [facility] [address] [id number] [place] [id number] May, Essential hypertension I10 [facility] [address]00565100[place], [place] [address] May, [facility] [id number] [place] [address] [id number] May, Other chronic pain G89.29 [facility] [id number] [place] [address] [id number] May, [facility] [id number] [place] [address] [id number] May, [facility] [id number] [place] [address] [id number] May, [facility] [id number] [place] [address] [id number] May, [facility] [id number], [place] [id number] May, RMSF (Frazee spotted 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 ; Nausea R11.0 ; Fever in other diseases R50.81 ; Follow-up exam Z09 ; 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 ; Abnormal brain MRI R90.89 ; Essential hypertension I10 ; Abnormal CT of brain R90.89 ; Spinal stenosis of lumbar region without neurogenic claudication M48.061 ; Scoliosis of thoracolumbar spine, unspecified scoliosis type M41.9 and Major depressive disorder, single episode, unspecified F32.9 [facility] [address] [id number] [place] [address] May, Frazee spotted fever A77.0 [facility] [place] [address] [id number] [place] [id number] May, [facility] [place] [address] [id number] [place] [id number] May, [facility] [address] [id number] [place] [address]- 7[address] May, [facility] [place] [address] [id number] [place] [id number] May, [facility] [place] [address] [id number] [place] [id number] May, [facility] [place] [address] [id number] [place] [id number] May, [facility] [place] [address] [id number] [place] [id number] May, [facility] [place] [address] [id number] [place] [id number] May, [facility] [place] [address] [id number] [place] [id number] May, [facility] [place] [address] [id number] [place] [id number] May, [facility] [place] [address] [id number] [place] [id number] May, [facility] [place] [address] [id number] [place] [id number] May, [facility] [place] [address] [id number] [place] [id number] May, [facility] [place] [address] [id number] [place] [id number] May, [facility] [place] [address] [id number] [place] [id number] May, [facility] [place] [address] [id number] [place] [id number] May, [facility] [place] [address] [id number], [place] [id number] May, Radicular low back pain M54.10 ; Other chronic pain G89.29 ; Fibromyalgia M79.7 ; Cervicalgia M54.2 ; Pain in thoracic spine M54.6 and Scoliosis of thoracolumbar spine, unspecified scoliosis type M41.[address] [id number] [place] [id number] May, [facility] [id number], [place] [id number] Apr, Muscle spasm M62.838 [address] [place] [address] [id number] Apr, [id number] [place] [address] [id number] Apr, Fibromyalgia M79.7 ; Muscle spasm M62.838 ; Other chronic pain G89.29 ; Vision changes H53.9 ; Headache above the eye region R51 ; Major depressive disorder, single episode, unspecified F32.9 ; Neck pain M54.2 and Thyroid nodule E04.1 [address]00565100[place] [id number] Apr, Other chronic pain G89.29 [address] [place] [address] [id number] Apr, Chronic tension-type headache, intractable G44.221 [address] [place] [address] [id number] Mar, Other chronic pain G89.29 ; Scoliosis of thoracolumbar spine, unspecified scoliosis type M41.9 ; Muscle spasm M62.838 ; Other chronic pain G89.29 ; Headache above the eye region R51 ; Hospital discharge follow-up Z09 ; Lumbar back pain with radiculopathy affecting right lower extremity M54.17 ; Lumbar back pain with radiculopathy affecting left lower extremity M54.17 and Myalgia M79.1 [address]00565100[place] [id number] Mar, [address] [id number] [place] [address] [id number] 14 Mar, 2017 Other chronic pain G89.29 [facility] [id number] [place] [address] [id number] 14 Mar, 2017 Radicular low back pain M54.10 [facility] [id number] [place] [address] [id number] Feb, [place] [id number] [place] [address] [id number] Feb, [facility] [id number] [place] [address] [id number] Feb, Muscle spasm M62.838 [place] [id number] [place] [address] [id number] Feb, Itching L29.9 and Acute bilateral back pain, unspecified back location M54.9 [place] [id number] [place] [address] [id number] Feb, History of pneumonia Z87.01 ; Cough R05 ; Radicular low back pain M54.10 ; Scoliosis of thoracolumbar spine, unspecified scoliosis type M41.9 ; Elevated liver enzymes R74.8 ; Influenza J11.1 ; Severe single current episode of major depressive disorder, without psychotic features F32.2 and Stressful life events affecting family and household Z63.79 [place] [id number] [place] [address] [id number] Jan, Muscle spasm M62.838 [place] [id number] [place] [address] [id number] Jan, Post-nasal drainage R09.82 ; Anxiety F41.9 and Cough R05 [place] [id number] [place] [address] [id number] Jan, Severe episode of recurrent major depressive disorder, without psychotic features F33.2 [address] [place] [address] [id number] Jan, Muscle spasm M62.838 [place] [id number] [place] [address] [id number] Jan, Acute recurrent maxillary sinusitis J01.01 and Breast tenderness in female N64.4 [facility] [id number], [place] [id number] Nov, [facility] [id number] [place] [address] [id number] Nov, [facility] [id number] [place] [address] [id number] Nov, Radicular low back pain M54.10 and Muscle spasm M62.838 [facility] [id number] [place] [address] [id number] Nov, [place] [id number] [place] [address] [id number] Nov, Viral disease B34.9 ; Fever, unspecified fever cause R50.9 ; Other fatigue R53.83 and Other malaise R53.81 [facility] [id number] [place] [address] [id number] Nov, Thyroid nodule E04.1 [place] [id number] [place] [address] [id number] Nov, Severe episode of recurrent major depressive disorder, without psychotic features F33.2 [address] [place] [address] [id number] Nov, Acute nasopharyngitis J00 [address] [place] [address] [id number] Oct, Scoliosis of thoracolumbar spine, unspecified scoliosis type M41.9 ; Muscle spasm M62.838 ; Thyroid nodule E04.1 ; Pain in thoracic spine M54.6 ; Other chronic pain G89.29 ; Cervicalgia M54.2 ; Radicular low back pain M54.10 ; Severe episode of recurrent major depressive disorder, without psychotic features F33.2 and High risk medication use Z79.899 [facility] [address]00565100[place] 63243711- [address] Oct, [facility] [address] [id number][place] [id number] Sep, Scoliosis of thoracolumbar spine, unspecified scoliosis type M41.9 ; Muscle spasm M62.838 ; Thyroid nodule E04.1 ; Pain in thoracic spine M54.6 ; Other chronic pain G89.29 ; Cervicalgia M54.2 ; Controlled substance agreement signed Z79.899 ; Vaginal yeast infection B37.3 and Radicular low back pain M54.10 [facility] [id number] [place] [address] [id number] Sep, Scoliosis of thoracolumbar spine, unspecified scoliosis type M41.9 and Muscle spasm M62.838 [place] [id number] [place] [address] [id number] Sep, Severe episode of recurrent major depressive disorder, without psychotic features F33.[address] [id number] Aug, Severe episode of recurrent major depressive disorder, without psychotic features F33.2 ; Thyroid nodule E04.1 ; Constipation, chronic K59.09 and Non morbid obesity due to excess calories E66.09 [place] [id number] [place] [address] [id number] Aug, Non morbid obesity due to excess calories E66.09 and Thyroid nodule E04.[address] [id number] Aug, [address] [id number] Jul, Severe episode of recurrent major depressive disorder, without psychotic features F33.2 ; Thyroid nodule E04.1 ; Constipation, chronic K59.09 and Non morbid obesity due to excess calories E66.09 [place] [id number] [place] [address] [id number] June, Sore throat J02.9 and Major depressive disorder, single episode, unspecified F32.9 [facility] [address] [address] May, [facility] [address] [address]- [address] May, [facility] [address] [address]- [address] 14 Mar, 2013 [facility] [address] [id number] [place] [address]- 3[address] 14 Mar, 2013 [facility] [address] [id number] [place] [address]- 0886 06 Mar, 2013 [facility] [address] [facility] [id number] [place] [address]- 1316 Mar, [facility] [address] [id number] [place] [address]- 5897 Jan, [facility] [address] [id number] [place] [address]- 1218 Jan, [facility] [address] [id number] [place] [address]- 6548 Jan, [facility] [address] [facility] [id number] [place] [address]- 8359 Jan, [facility] [address] [id number] [place] [address]- 2742 Jan, [facility] [address] [facility] [id number] [place] [address]- 4481 Jan, [facility] [address] [facility] [id number] [place] [address]- 1806 Jan, [facility] [address] [facility] [id number] [place] [address]- 7190 Jan, [facility] [place] [facility] [address] [id number] [place] [address]- 0108 Dec, [facility] [place] [facility] [address] [id number] [place] [address]- 5588 Dec, [facility] [place] [facility] [address] [facility] [id number] [place] [address]- 7883 Apr, [facility] [place] [facility] [address] [facility] [id number] [place] [address]- 3815 Jan, [facility] [place] [facility] [address] [id number] [place] [address]- 1104 Jan, [facility] [place] [facility] [address] [id number] [place] [address]- 5271 Dec, [facility] [place] [facility] [address] [id number] [place] [address]- 6220 Dec, [facility] [place] [facility] [address] [facility] [id number] [place]- 1507 Nov, [facility] [place] [facility] [address] [id number] [place] [address]- 4550 Nov, [facility] [place] [facility] [address] [facility] [id number] [place] [address]- 0189 Sep, [facility] [place] [facility] [address] [facility] [id number] [place] [address]- 2524 Sep, [facility] [place] [address] [facility] [id number][place] [id number] Sep, [facility] [place] [address] [facility] [id number], [place] [id number] Sep, [facility] [place] [facility] [address] [facility] [id number] [place] [address]- 8735 Sep, [facility] [place] [facility] [address] [facility] [id number], [place] [address]- 8028 Sep, [facility] [place] [address] [facility] [id number][place] [id number] Aug, [facility] [place] [facility] [address] [facility] [id number], [place] [address] Aug, [facility] [place] [facility] [address] [facility] [id number] [place] [address] Aug, [facility] [place] [facility] [address] [facility] [id number] [place] [address] Aug, [facility] [address] [facility] [id number] [id number] Jul, [facility] [place] [facility] [address] [id number] [place] [address] 28 Jul, 2011 [facility] [place] [facility] [address] [id number] [place] [address] Jul, [facility] [place] [facility] [address] [id number] [place] [address] Jul, [facility] [place] [facility] [address] [facility] [id number] [place] [address] May, [facility] [place] [facility] [address] [id number] [place] [address] Feb, [facility] [place] [facility] [address] [facility] [id number] [place] [address], [place] [address] Jan, [facility] [place] [facility] [address] [facility] [id number] [place] [address] Jan, [facility] [place] [facility] [address] [facility] [id number] [place] [address] Dec, [facility] [place] [facility] [address] [facility] [id number], [place] [address] Dec, [facility] [place] [facility] [address] [facility] [id number] [place] [address] Dec, [facility] [place] [facility] [address] [facility] [id number], [place] [address] Nov, [facility] [place] [facility] [address] [facility] [id number] [place] [address] Nov, [facility] [place] [facility] [address] [facility] [id number], [place] [address] Sep, [facility] [place] [facility] [address] [facility] [id number], [place] [address] Jul, [facility] [place] [facility] [address] [facility] [id number], [place] [address] Mar, [facility] [place] [facility] [address] [facility] [id number], [place] [address] Nov, [facility] [address] [facility] [id number] [place] [address] Nov, IMMUNIZATIONS No Known Immunizations SOCIAL HISTORY Never Assessed REASON FOR VISIT Left breast density, further evalution with US recomemnded PLAN OF CARE VITAL SIGNS MEDICATIONS Unknown Medications RESULTS Name Result Date Reference Range Ultrasound : Breast, Left 2017-09-29 PROCEDURES No Known procedures INSTRUCTIONS MEDICATIONS ADMINISTERED No Known Medications MEDICAL (GENERAL) HISTORY Type Description Date Medical History Fibromyalgia Medical History Chronic Consipation Medical History 08/16/16 [facility] general surgery center, Dr. Jimenez, hemorrhage [...] month fu US. Thyroid is otherwise unremarkable. 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 No acute cord pathology, no significant spinal canal stenosis, no significant neural foraminal stenosis Medical History MRI Lumbar spine 05/26/17 -no acute cord pathology, no fracture or dislocation. Moderate thoracolumbar levocurvature, Overall mild L5-S1 canal stenosis, no appreciable descending intraspinal nerve root impingement. Multilevel mild neural foraminal stenosis Medical History Anxiety, depression Medical History MRI- Brain 05/29/2017 Medical History [place] Spotted Tick Fever Medical History Ebstein Feng Virus Surgical History hysterectomy, total with unilateral salpingo-oophorectomy ( USO) Surgical History cholecystectomy Surgical History tonsillectomy and adenoidectomy Surgical History hemorrhoidectomy Surgical History EGD Surgical History colonoscopy 08/25/16 Hospitalization History fever, HTN, abnormal head [facility] 05/28/17
--- OUTSIDE RECORDS SUMMARY | 2017-11-06 12:23 | XMS REPORT ---
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 Name Role Phone MICHAEL CORREIA Unavailable PROBLEMS Type Condition ICD9-CM Code KSX65-NL Code Onset Dates Condition Status SNOMED Code Problem Major depressive disorder, single episode, unspecified F32.9 Active 14671845 Problem Thyroid nodule E04.1 Active 01282282 Problem Severe single current episode of major depressive disorder, without psychotic features F32.2 Active 40287097 Problem Severe episode of recurrent major depressive disorder, without psychotic features F33.2 Active 312856636596 Problem Chronic tension-type headache, intractable G44.221 Active 803951805 Problem Constipation, chronic K59.09 Active 965390534 Problem Essential hypertension I10 Active 35825533 Problem Non morbid obesity due to excess calories E66.09 Active 600357907 Problem 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 Active 937726715 Problem RMSF ([place] spotted 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 Active 458202994 Problem Abnormal brain MRI R90.89 Active 429460848 Problem Abnormal mammogram of left breast R92.8 Active 242294723 Problem Diarrhea, unspecified type R19.7 Active 08871239 Problem Controlled substance agreement signed Z79.899 Active 261748707 Problem Other chronic pain G89.29 Active 096224999 Problem Scoliosis of thoracolumbar spine, unspecified scoliosis type M41.9 Active 623540736 Problem 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 Active 748529782 Problem Recurrent fever A68.9 Active 653940226 Problem Epigastric abdominal pain R10.13 Active 19034306 Problem Abnormal mammogram R92.8 Active 863730433 Problem Pain in thoracic spine M54.6 Active 105274837400727 Problem Cervicalgia M54.2 Active 6354307973150 Problem Radicular low back pain M54.10 Active 78371349 Problem Muscle spasm M62.838 Active 38435081 Problem Other chronic pain G89.29 Active 930927286 Problem Fibromyalgia M79.7 Active 276700764 Problem Anxiety F41.9 Active 838306517 Problem Acute bilateral low back pain with sciatica, sciatica laterality unspecified M54.40 Active 150808620 ALLERGIES No Information ENCOUNTERS Encounter Location Date Diagnosis [facility] [address] [id number] [id number] Sep, [facility] [address] [id number] Sep, [facility] [address] [id number] [place] [id number] Sep, [facility] [address] [id number] [address] Sep, Fibromyalgia M79.7 [facility] [address] [id number] [place] [id number] Sep, Epigastric abdominal pain R10.13 and Diarrhea, unspecified type R19.7 [facility] [id number], [place] [id number] Sep, Abnormal mammogram of left breast R92.8 [facility] [id number], [place] [address] Sep, Abnormal mammogram R92.8 [facility] [id number], [place] [address] Sep, [facility] [id number] [place] [address] [id number] Aug, Abnormal mammogram R92.8 [facility] [address] [id number], [place] [id number] Aug, [facility] [id number] [place] [address] [id number] Aug, [facility] [id number], [place] [id number] Aug, Screening breast examination Z12.31 and At risk for bone density loss Z91.89 [facility] [place] [address] [id number], [place] 759623232 Aug, [facility] [place] [address] [id number] [place] [id number] Aug, [facility] [place] [address] [id number] [place] [id number] Aug, Other chronic pain G89.29 [facility] [place] [address] [id number], [place] [id number] Aug, [facility] [place] [address] [id number], [place] [id number] Aug, [facility] [place] [address] [id number] [place] [id number] Aug, [facility] [place] [address] [id number] [place] [id number] Aug, Fibromyalgia M79.7 ; Anxiety F41.9 ; High risk medication use Z79.899 ; Other chronic pain G89.29 ; Recurrent fever A68.9 ; 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 and RMSF ([place] spotted 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 [facility] [place] [address] [id number], [place] [id number] Jul, [facility] [place] [address] [id number], [place] [address]49018590 Jul, [facility] [place] [address] [id number], [place] 112263565 Jul, Muscle spasm M62.838 and Anxiety F41.9 [facility] [place] [address] [id number], [place] 688127918 Jul, [facility] [place] [address] [id number], [place] 733715484 Jul, [facility] [place] [address] [id number], [place] 756106533 Jul, [facility] [address] [id number] [place] 4150475[address] Jul, [facility] [place] [address] [id number], [place] [id number] Jul, [facility] [place] [address] [id number], [place] [id number] Jul, [facility] [place] [address] [id number] [place] [id number] Jul, [facility] [place] [address] [id number] [place] [id number] Jul, [facility] [place] [address] [id number] [place] 138381817 Jul, [facility] [place] [address] [id number] [place] [id number] Jul, [facility] [place] [address] [id number] [place] [id number] Jul, Radicular low back pain M54.10 ; Other chronic pain G89.29 and Fibromyalgia M79.7 [facility] [place] [address] [id number] [place] [id number] Jul, [facility] [place] [address] [id number] [place] [id number] Jul, [facility] [place] [address] [id number], [place] [id number] Jul, [facility] [place] [address] [id number] [place] [id number] June, [facility] [place] [address] [id number], [place] [id number] June, [facility] [place] [address] [id number] [place] [id number] June, 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 [place] [address] [id number], [place] [id number] June, 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 [facility] [place] [id number] [place] [address] [id number] June, [facility] [place] [address] [id number] [place] [address] [id number] June, [facility] [place] [id number] [place] [address] [id number] June, [facility] [id number] [place] [address] June, [facility] [place] [id number] [place] [address] [id number] June, [facility] [place] [id number] [place] [address] June, Radicular low back pain M54.10 and Scoliosis of thoracolumbar spine, unspecified scoliosis type M41.9 [facility] [place] [address] [id number], [place] [id number] June, [facility] [place] [id number], [place] 847281092 June, [facility] [place] [address] [id number], [place] [id number] June, [facility] [place] [address] [id number], [place] [id number] June, [facility] [place] [id number] [place] [address] [id number] June, RMSF ([place] spotted 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 [facility] [place] [address] [id number], [place] [id number] June, [facility] [place] [address] [id number], [place] 789043734 June, Muscle spasm M62.838 [facility] [id number], [place] [id number] June, [facility] [id number] [place] [address] [id number] May, [facility] [id number], [place] 027395045 May, [facility] [id number] [place] [address] [id number] May, [facility] [address] [id number] [place] 819529124 May, RMSF ([place] spotted 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 [facility] [address] [id number] [place] [id number] May, Essential hypertension I10 [facility] [address]00565100[place], [place] [address] May, [facility] [id number] [place] [address] [id number] May, Other chronic pain G89.29 [facility] [id number] [place] [address] [id number] May, [facility] [id number] [place] [address] [id number] May, [facility] [id number] [place] [address] [id number] May, [facility] [id number] [place] [address] [id number] May, [facility] [id number], [place] [id number] May, RMSF ([place] spotted 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 ; Nausea R11.0 ; [...] depressive disorder, single episode, unspecified F32.9 [facility] [address] [id number] [place] [address] May, [place] spotted fever A77.0 [facility] [place] [address] [id number] [place] [id number] May, [facility] [place] [address] [id number] [place] [id number] May, [facility] [address] [id number] [place] [address]- [address] May, [facility] [place] [address] [id number] [place] [id number] May, [facility] [place] [address] [id number] [place] [id number] May, [facility] [place] [address] [id number] [place] [id number] May, [facility] [place] [address] [id number] [place] [id number] May, [facility] [place] [address] [id number] [place] [id number] May, [facility] [place] [address] [id number] [place] [id number] May, [facility] [place] [address] [id number] [place] [id number] May, [facility] [place] [address] [id number] [place] 198433612 May, [facility] [place] [address] [id number] [place] [id number] May, [facility] [place] [address] [id number] [place] [id number] May, [facility] [place] [address] [id number] [place] 414932642 May, [facility] [place] [address] [id number] [place] [id number] May, [facility] [place] [address] [id number] [place] [id number] May, [facility] [place] [address] [id number], [place] [id number] May, Radicular low back pain M54.10 ; Other chronic pain G89.29 ; Fibromyalgia M79.7 ; Cervicalgia M54.2 ; Pain in thoracic spine M54.6 and Scoliosis of thoracolumbar spine, unspecified scoliosis type M41.[address] [id number] [place] [phone] May, [facility] [id number], [place] 645121274 Apr, Muscle spasm M62.838 [id number] [place] [address] [id number] Apr, [place] [id number] [place] [address] [id number] Apr, Fibromyalgia M79.7 ; Muscle spasm M62.838 ; Other chronic pain G89.29 ; Vision changes H53.9 ; Headache above the eye region R51 ; Major depressive disorder, single episode, unspecified F32.9 ; Neck pain M54.2 and Thyroid nodule E04.1 [address]00565100[place], [place] [id number] Apr, Other chronic pain G89.29 [address] [place] [address] [id number] Apr, Chronic tension-type headache, intractable G44.221 [address] [place] [address] [id number] Mar, Other chronic pain G89.29 ; Scoliosis of thoracolumbar spine, unspecified scoliosis type M41.9 ; Muscle spasm M62.838 ; Other chronic pain G89.29 ; Headache above the eye region R51 ; Hospital discharge follow-up Z09 ; Lumbar back pain with radiculopathy affecting right lower extremity M54.17 ; Lumbar back pain with radiculopathy affecting left lower extremity M54.17 and Myalgia M79.1 [address]00565100[place], [place] [id number] Mar, [place] [id number] [place] [address] [id number] 14 Mar, 2017 Other chronic pain G89.29 [facility] [id number] [place] [address] [id number] 14 Mar, 2017 Radicular low back pain M54.10 [facility] [id number] [place] [address] [id number] Feb, [place] [id number] [place] [address] [id number] Feb, [facility] [id number] [place] [address] [id number] Feb, Muscle spasm M62.838 [place] [id number] [place] [address] [id number] Feb, Itching L29.9 and Acute bilateral back pain, unspecified back location M54.9 [place] [id number] [place] [address] [id number] Feb, History of pneumonia Z87.01 ; Cough R05 ; Radicular low back pain M54.10 ; Scoliosis of thoracolumbar spine, unspecified scoliosis type M41.9 ; Elevated liver enzymes R74.8 ; Influenza J11.1 ; Severe single current episode of major depressive disorder, without psychotic features F32.2 and Stressful life events affecting family and household Z63.79 [place] [id number] [place] [address] [id number] Jan, Muscle spasm M62.838 [place] [id number] [place] [address] [id number] Jan, Post-nasal drainage R09.82 ; Anxiety F41.9 and Cough R05 [place] [id number] [place] [address] [id number] Jan, Severe episode of recurrent major depressive disorder, without psychotic features F33.2 [address] [place] [address] [id number] Jan, Muscle spasm M62.838 [place] [id number] [place] [address] [id number] Jan, Acute recurrent maxillary sinusitis J01.01 and Breast tenderness in female N64.4 [facility] [id number], [place] [id number] Nov, [facility] [id number] [place] [address] [id number] Nov, [facility] [id number] [place] [address] [id number] Nov, Radicular low back pain M54.10 and Muscle spasm M62.838 [facility] [id number] [place] [address] [id number] Nov, [place] [id number] [place] [address] [id number] Nov, Viral disease B34.9 ; Fever, unspecified fever cause R50.9 ; Other fatigue R53.83 and Other malaise R53.81 [facility] [id number] [place] [address] [id number] Nov, Thyroid nodule E04.1 [place] [id number] [place] [address] [id number] Nov, Severe episode of recurrent major depressive disorder, without psychotic features F33.2 [address] [place] [address] [id number] Nov, Acute nasopharyngitis J00 [address] [place] [address] [id number] Oct, Scoliosis of thoracolumbar spine, unspecified scoliosis type M41.9 ; Muscle spasm M62.838 ; Thyroid nodule E04.1 ; Pain in thoracic spine M54.6 ; Other chronic pain G89.29 ; Cervicalgia M54.2 ; Radicular low back pain M54.10 ; Severe episode of recurrent major depressive disorder, without psychotic features F33.2 and High risk medication use Z79.899 [facility] [address]00565100[place], [place] 52264385- [address] Oct, [facility] [address] [id number], [place] [id number] Sep, Scoliosis of thoracolumbar spine, unspecified scoliosis type M41.9 ; Muscle spasm M62.838 ; Thyroid nodule E04.1 ; Pain in thoracic spine M54.6 ; Other chronic pain G89.29 ; Cervicalgia M54.2 ; Controlled substance agreement signed Z79.899 ; Vaginal yeast infection B37.3 and Radicular low back pain M54.10 [facility] [id number] [place] [address] [id number] Sep, Scoliosis of thoracolumbar spine, unspecified scoliosis type M41.9 and Muscle spasm M62.838 [place] [id number] [place] [address] [id number] Sep, Severe episode of recurrent major depressive disorder, without psychotic features F33.[address] [id number] Aug, Severe episode of recurrent major depressive disorder, without psychotic features F33.2 ; Thyroid nodule E04.1 ; Constipation, chronic K59.09 and Non morbid obesity due to excess calories E66.09 [place] [id number] [place] [address] [id number] Aug, Non morbid obesity due to excess calories E66.09 and Thyroid nodule E04.[address] [id number] Aug, [address] [id number] Jul, Severe episode of recurrent major depressive disorder, without psychotic features F33.2 ; Thyroid nodule E04.1 ; Constipation, chronic K59.09 and Non morbid obesity due to excess calories E66.09 [place] [id number] [place] [address] [id number] June, Sore throat J02.9 and Major depressive disorder, single episode, unspecified F32.9 [facility] [address] [address]- [address] May, [facility] [address] [address]- [address] May, [facility] [address] [address]- [address] 14 Mar, 2013 [facility] [address] [id number] [place] [address]- 8216 14 Mar, 2013 [facility] [address] [id number] [place] [address]- 3016 06 Mar, 2013 [facility] [address] [facility] [id number] [place] [address]- 0426 Mar, [facility] [address] [id number] [place] [address]- 2640 Jan, [facility] [address] [id number] [place] [address]- 0559 Jan, [facility] [address] [id number] [place] [address]- 7521 Jan, [facility] [address] [facility] [id number] [place] [address]- 7539 Jan, [facility] [address] [id number] [place] [address]- 8191 Jan, [facility] [address] [facility] [id number] [place] [address]- 9331 Jan, [facility] [address] [facility] [id number] [place] [address]- 9715 Jan, [facility] [address] [facility] [id number] [place] [address]- 9896 Jan, [facility] [place] [facility] [address] [id number] [place] [address]- 9571 Dec, [facility] [place] [facility] [address] [id number] [place] [address]- 4127 Dec, [facility] [place] [facility] [address] [facility] [id number] [place] [address]- 2666 Apr, [facility] [place] [facility] [address] [facility] [id number] [place] [address]- 7535 Jan, [facility] [place] [facility] [address] [id number] [place] [address]- 7571 Jan, [facility] [place] [facility] [address] [id number] [place] [address]- 9961 Dec, [facility] [place] [facility] [address] [id number] [place] [address]- 0387 Dec, [facility] [place] [facility] [address] [facility] [id number] [place]- 3[address] Nov, [facility] [place] [facility] [address] [id number] [place] [address]- 0879 Nov, [facility] [place] [facility] [address] [facility] [id number] [place] [address]- 4141 Sep, [facility] [place] [facility] [address] [facility] [id number] [place] [address]- 3799 Sep, [facility] [place] [address] [facility] [id number], [place] [id number] Sep, [facility] [place] [address] [facility] [id number], [place] [id number] Sep, [facility] [place] [facility] [address] [facility] [id number] [place] [address]- 2256 Sep, [facility] [place] [facility] [address] [facility] [id number], [place] [address]- [address] Sep, [facility] [place] [address] [facility] [id number] [id number] Aug, [facility] [place] [facility] [address] [facility] [id number], [place] [address] Aug, [facility] [place] [facility] [address] [facility] [id number] [place] [address] Aug, [facility] [place] [facility] [address] [facility] [id number] [place] [address] Aug, [facility] [address] [facility] [id number][place] [id number] Jul, [facility] [place] [facility] [address] [id number] [place] [address] 28 Jul, 2011 [facility] [place] [facility] [address] [id number] [place] [address] Jul, [facility] [place] [facility] [address] [id number] [place] [address] Jul, [facility] [place] [facility] [address] [facility] [id number] [place] [address] May, [facility] [place] [facility] [address] [id number] [place] [address] Feb, [facility] [place] [facility] [address] [facility] [id number] [place] [address], [place] [address] Jan, [facility] [place] [facility] [address] [facility] [id number] [place] [address] Jan, [facility] [place] [facility] [address] [facility] [id number] [place] [address] Dec, [facility] [place] [facility] [address] [facility] [id number], [place] [address] Dec, [facility] [place] [facility] [address] [facility] [id number] [place] [address] Dec, [facility] [place] [facility] [address] [facility] [id number], [place] [address] Nov, [facility] [place] [facility] [address] [facility] [id number] [place] [address] Nov, [facility] [place] [facility] [address] [facility] [id number], [place] [address] Sep, [facility] [place] [facility] [address] [facility] [id number], [place] [address] Jul, [facility] [place] [facility] [address] [facility] [id number], [place] [address] Mar, [facility] [place] [facility] [address] [facility] [id number], [place] [address] Nov, [facility] [address] [facility] [id number] [place] [address] Nov, IMMUNIZATIONS No Known Immunizations SOCIAL HISTORY Never Assessed REASON FOR VISIT change orders per [facility] PLAN OF CARE VITAL SIGNS MEDICATIONS Unknown Medications RESULTS Name Result Date Reference Range Mammogram Ru Garibay 2017-09-29 PROCEDURES No Known procedures INSTRUCTIONS MEDICATIONS ADMINISTERED No Known Medications MEDICAL (GENERAL) HISTORY Type Description Date Medical History Fibromyalgia Medical History Chronic Consipation Medical History 08/16/16 [facility] general surgery center, Dr. Jimenez, hemorrhage [...] Medical History MRI- Brain 05/29/2017 Medical History [place] Spotted Tick Fever Medical History Ebstein Feng Virus Surgical History hysterectomy, total with unilateral salpingo-oophorectomy ( USO) Surgical History cholecystectomy Surgical History tonsillectomy and adenoidectomy Surgical History hemorrhoidectomy Surgical History EGD Surgical History colonoscopy 08/25/16 Hospitalization History fever, HTN, abnormal head CT-VC 05/28/17
--- OUTSIDE RECORDS SUMMARY | 2017-11-06 12:24 | XMS REPORT ---
Author Author MICHAEL CORREIA Organization [facility] Address [address] [place] [address] Care Team Providers Care Blending Coordinator Name Role Phone MICHAEL CORREIA Unavailable PROBLEMS Type Condition ICD9-CM Code ILU34-FA Code Onset Dates Condition Status SNOMED Code Problem Major depressive disorder, single episode, unspecified F32.9 Active 94467071 Problem Thyroid nodule E04.1 Active 96748493 Problem Severe single current episode of major depressive disorder, without psychotic features F32.2 Active 76696257 Problem Severe episode of recurrent major depressive disorder, without psychotic features F33.2 Active 697663499309 Problem Chronic tension-type headache, intractable G44.221 Active 393707111 Problem Constipation, chronic K59.09 Active 929565627 Problem Essential hypertension I10 Active 12239702 Problem Non morbid obesity due to excess calories E66.09 Active 285185030 Problem 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 Active 751239841 Problem RMSF ([place] spotted 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 Active 510097315 Problem Abnormal brain MRI R90.89 Active 982043394 Problem Abnormal mammogram of left breast R92.8 Active 509942640 Problem Diarrhea, unspecified type R19.7 Active 68116970 Problem Controlled substance agreement signed Z79.899 Active 689765464 Problem Other chronic pain G89.29 Active 616110293 Problem Scoliosis of thoracolumbar spine, unspecified scoliosis type M41.9 Active 852974316 Problem 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 Active 731281107 Problem Recurrent fever A68.9 Active 930276913 Problem Epigastric abdominal pain R10.13 Active 79294989 Problem Abnormal mammogram R92.8 Active 504821393 Problem Pain in thoracic spine M54.6 Active 429128524855297 Problem Cervicalgia M54.2 Active 8223527791822 Problem Radicular low back pain M54.10 Active 33708128 Problem Muscle spasm M62.838 Active 35790851 Problem Other chronic pain G89.29 Active 925795499 Problem Fibromyalgia M79.7 Active 020746372 Problem Anxiety F41.9 Active 037371891 Problem Acute bilateral low back pain with sciatica, sciatica laterality unspecified M54.40 Active 651040629 ALLERGIES No Information ENCOUNTERS Encounter Location Date Diagnosis [facility] [address] [id number] [place] [id number] Sep, [facility] [address] [address] Sep, [facility] [address] [facility] [id number] [place] [id number] Sep, [facility] [address] [id number] [address] Sep, Fibromyalgia M79.7 [facility] [address] [id number] [place] [address] Sep, Epigastric abdominal pain R10.13 and Diarrhea, unspecified type R19.7 [facility] [id number][place] [id number] Sep, Abnormal mammogram of left breast R92.8 [facility] [id number], [place] [address] Sep, Abnormal mammogram R92.8 [facility] [id number], [place] [address] Sep, [facility] [id number] [place] [address] [id number] Aug, Abnormal mammogram R92.8 [facility] [address] [id number][place] [id number] Aug, [facility] [id number] [place] [address] [id number] Aug, [facility] [id number], [place] [address] Aug, Screening breast examination Z12.31 and At risk for bone density loss Z91.89 [facility] [place] [address] [id number][place] [id number] Aug, [facility] [place] [address] [id number] [place] [id number] Aug, [facility] [place] [address] [id number] [place] [id number] Aug, Other chronic pain G89.29 [facility] [place] [address] [id number], [place] [id number] Aug, [facility] [place] [address] [id number], [place] [address]95366487 Aug, [facility] [place] [address] [id number] [place] [id number] Aug, [facility] [place] [address] [id number] [place] [id number] Aug, Fibromyalgia M79.7 ; Anxiety F41.9 ; High risk medication use Z79.899 ; Other chronic pain G89.29 ; Recurrent fever A68.9 ; 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 and RMSF ([place] spotted 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 [facility] [place] [address] [id number], [place] [address] Jul, [facility] [place] [address] [id number], [place] [id number] Jul, [facility] [place] [address] [id number], [place] [id number] Jul, Muscle spasm M62.838 and Anxiety F41.9 [facility] [place] [address] [id number], [place] 618461161 Jul, [facility] [place] [address] [id number], [place] 355[address]33817 Jul, [facility] [place] [address] [id number], [place] [id number] Jul, [facility] [address] [id number] [place] [id number] Jul, [facility] [place] [address] [id number], [place] 090797775 Jul, [facility] [place] [address] [id number], [place] [id number] Jul, [facility] [place] [address] [id number] [place] [id number] Jul, [facility] [place] [address] [id number] [place] [id number] Jul, [facility] [place] [address] [id number] [place] [id number] Jul, [facility] [place] [address] [id number] [place] [id number] Jul, [facility] [place] [address] [id number] [place] [id number] Jul, Radicular low back pain M54.10 ; Other chronic pain G89.29 and Fibromyalgia M79.7 [facility] [place] [address] [id number] [place] [id number] Jul, [facility] [place] [address] [id number] [place] [address] Jul, [facility] [place] [address] [id number], [place] [id number] Jul, [facility] [place] [address] [id number] [place] [id number] June, [facility] [place] [address] [id number], [place] [id number] June, [facility] [place] [address] [id number] [place] [id number] June, 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 ; Recurrent fever A68.9 ; Other chronic pain G89.29 ; Radicular low back pain M54.10 ; Chronic tension- type headache, intractable G44.221 ; Essential hypertension I10 ; RMSF ([place] spotted 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 and Abnormal brain MRI R90.89 [facility] [place] [address] [id number], [place] [id number] June, [facility] [place] [id number] [id number] June, 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 and RMSF ([place] spotted 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 [facility] [place] [address] [id number] [place] [id number] June, [facility] [place] [address] [id number] [place] [id number] June, [facility] [place] [id number] [place] [address] [id number] June, RMSF ([place] spotted 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 and 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 [facility] [place] [address] [id number] [place] [address] [id number] June, [facility] [place] [address] [id number] [place] [address] [id number] June, [facility] [place] [id number] [place] [address] [id number] June, [facility] [id number] [place] [address] June, [facility] [place] [id number] [place] [address] [id number] June, [facility] [place] [id number] [place] [address] June, Radicular low back pain M54.10 and Scoliosis of thoracolumbar spine, unspecified scoliosis type M41.9 [facility] [place] [address] [id number], [place] [id number] June, [facility] [place] [id number], [place] [id number] June, [facility] [place] [address] [id number], [place] [id number] June, [facility] [place] [address] [id number], [place] [id number] June, [facility] [place] [address] [id number] [place] [address] [id number] June, RMSF ([place] spotted 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 [facility] [place] [address] [id number], [place] [id number] June, [facility] [place] [address] [id number], [place] 821926852 June, Muscle spasm M62.838 [facility] [id number], [place] [id number] June, [facility] [id number] [place] [address] [id number] May, [facility] [id number], [place] [id number] May, [facility] [id number] [place] [address] [id number] May, [facility] [address] [id number] [place] [id number] May, RMSF ([place] spotted 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 [facility] [address] [id number] [place] [id number] May, Essential hypertension I10 [facility] [address]65[address], [place] [address] May, [facility] [id number] [place] [address] [id number] May, Other chronic pain G89.29 [facility] [id number] [place] [address] [id number] May, [facility] [id number] [place] [address] [id number] May, [facility] [id number] [place] [address] [id number] May, [facility] [id number] [place] [address] [id number] May, [facility] [id number], [place] [id number] May, RMSF ([place] spotted 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 ; Nausea R11.0 ; [...] depressive disorder, single episode, unspecified F32.9 [facility] [address] [id number] [place] [address] May, [place] spotted fever A77.0 [facility] [place] [address] [id number] [place] [id number] May, [facility] [place] [address] [id number] [place] [id number] May, [facility] [address] [id number] [place] [address] May, [facility] [place] [address] [id number] [place] [id number] May, [facility] [place] [address] [id number] [place] [id number] May, [facility] [place] [address] [id number] [place] [id number] May, [facility] [place] [address] [id number] [place] [id number] May, [facility] [place] [address] [id number] [place] 109582197 May, [facility] [place] [address] [id number] [place] [id number] May, [facility] [place] [address] [id number] [place] [id number] May, [facility] [place] [address] [id number] [place] [id number] May, [facility] [place] [address] [id number] [place] [id number] May, [facility] [place] [address] [id number] [place] 855962163 May, [facility] [place] [address] [id number] [place] [id number] May, [facility] [place] [address] [id number] [place] [id number] May, [facility] [place] [address] [id number] [place] [id number] May, [facility] [place] [address] [id number], [place] 747655624 May, Radicular low back pain M54.10 ; Other chronic pain G89.29 ; Fibromyalgia M79.7 ; Cervicalgia M54.2 ; Pain in thoracic spine M54.6 and Scoliosis of thoracolumbar spine, unspecified scoliosis type M41.[address] [id number] [place] [id number] May, [facility] [id number], [place] [id number] Apr, Muscle spasm M62.838 [address] [place] [address] [id number] Apr, [place] [id number] [place] [address] [id number] Apr, Fibromyalgia M79.7 ; Muscle spasm M62.838 ; Other chronic pain G89.29 ; Vision changes H53.9 ; Headache above the eye region R51 ; Major depressive disorder, single episode, unspecified F32.9 ; Neck pain M54.2 and Thyroid nodule E04.1 [address]00565100[place] [id number] Apr, Other chronic pain G89.29 [address] [place] [address] [id number] Apr, Chronic tension-type headache, intractable G44.221 [address] [place] [address] [id number] Mar, Other chronic pain G89.29 ; Scoliosis of thoracolumbar spine, unspecified scoliosis type M41.9 ; Muscle spasm M62.838 ; Other chronic pain G89.29 ; Headache above the eye region R51 ; Hospital discharge follow-up Z09 ; Lumbar back pain with radiculopathy affecting right lower extremity M54.17 ; Lumbar back pain with radiculopathy affecting left lower extremity M54.17 and Myalgia M79.1 [address]00565100[place], [place] [id number] Mar, [place] [id number] [place] [address] [id number] 14 Mar, 2017 Other chronic pain G89.29 [facility] [id number] [place] [address] [id number] 14 Mar, 2017 Radicular low back pain M54.10 [facility] [id number] [place] [address] [id number] Feb, [place] [id number] [place] [address] [id number] Feb, [facility] [id number] [place] [address] [id number] Feb, Muscle spasm M62.838 [place] [id number] [place] [address] [id number] Feb, Itching L29.9 and Acute bilateral back pain, unspecified back location M54.9 [place] [id number] [place] [address] [id number] Feb, History of pneumonia Z87.01 ; Cough R05 ; Radicular low back pain M54.10 ; Scoliosis of thoracolumbar spine, unspecified scoliosis type M41.9 ; Elevated liver enzymes R74.8 ; Influenza J11.1 ; Severe single current episode of major depressive disorder, without psychotic features F32.2 and Stressful life events affecting family and household Z63.79 [place] [id number] [place] [address] [id number] Jan, Muscle spasm M62.838 [place] [id number] [place] [address] [id number] Jan, Post-nasal drainage R09.82 ; Anxiety F41.9 and Cough R05 [place] [id number] [place] [address] [id number] Jan, Severe episode of recurrent major depressive disorder, without psychotic features F33.2 [address] [place] [address] [id number] Jan, Muscle spasm M62.838 [place] [id number] [place] [address] [id number] Jan, Acute recurrent maxillary sinusitis J01.01 and Breast tenderness in female N64.4 [facility] [id number], [place] [id number] Nov, [facility] [id number] [place] [address] [id number] Nov, [facility] [id number] [place] [address] [id number] Nov, Radicular low back pain M54.10 and Muscle spasm M62.838 [facility] [id number] [place] [address] [id number] Nov, [place] [id number] [place] [address] [id number] Nov, Viral disease B34.9 ; Fever, unspecified fever cause R50.9 ; Other fatigue R53.83 and Other malaise R53.81 [facility] [id number] [place] [address] [id number] Nov, Thyroid nodule E04.1 [place] [id number] [place] [address] [id number] Nov, Severe episode of recurrent major depressive disorder, without psychotic features F33.2 [address] [place] [address] [id number] Nov, Acute nasopharyngitis J00 [address] [place] [address] [id number] Oct, Scoliosis of thoracolumbar spine, unspecified scoliosis type M41.9 ; Muscle spasm M62.838 ; Thyroid nodule E04.1 ; Pain in thoracic spine M54.6 ; Other chronic pain G89.29 ; Cervicalgia M54.2 ; Radicular low back pain M54.10 ; Severe episode of recurrent major depressive disorder, without psychotic features F33.2 and High risk medication use Z79.899 [facility] [address]00565100[place], [place] 23899712- [address] Oct, [facility] [address] [id number], [place] [id number] Sep, Scoliosis of thoracolumbar spine, unspecified scoliosis type M41.9 ; Muscle spasm M62.838 ; Thyroid nodule E04.1 ; Pain in thoracic spine M54.6 ; Other chronic pain G89.29 ; Cervicalgia M54.2 ; Controlled substance agreement signed Z79.899 ; Vaginal yeast infection B37.3 and Radicular low back pain M54.10 [facility] [id number] [place] [address] [id number] Sep, Scoliosis of thoracolumbar spine, unspecified scoliosis type M41.9 and Muscle spasm M62.838 [place] [id number] [place] [address] [id number] Sep, Severe episode of recurrent major depressive disorder, without psychotic features F33.[address] [id number] Aug, Severe episode of recurrent major depressive disorder, without psychotic features F33.2 ; Thyroid nodule E04.1 ; Constipation, chronic K59.09 and Non morbid obesity due to excess calories E66.09 [place] [id number] [place] [address] [id number] Aug, Non morbid obesity due to excess calories E66.09 and Thyroid nodule E04.[address] [id number] Aug, [address] [id number] Jul, Severe episode of recurrent major depressive disorder, without psychotic features F33.2 ; Thyroid nodule E04.1 ; Constipation, chronic K59.09 and Non morbid obesity due to excess calories E66.09 [place] [id number] [place] [address] [id number] June, Sore throat J02.9 and Major depressive disorder, single episode, unspecified F32.9 [facility] [address] [address] May, [facility] [address] [address] May, [facility] [address] [address]- [address] 14 Mar, 2013 [facility] [address] [id number] [place] [address]- 0[address] 14 Mar, 2013 [facility] [address] [id number] [place] [address]- 4696 06 Mar, 2013 [facility] [address] [facility] [id number] [place] [address]- 2346 Mar, [facility] [address] [id number] [place] [address]- 6952 Jan, [facility] [address] [id number] [place] [address]- 4568 Jan, [facility] [address] [id number] [place] [address]- 8136 Jan, [facility] [address] [facility] [id number] [place] [address]- 9789 Jan, [facility] [address] [id number] [place] [address]- 6805 Jan, [facility] [address] [facility] [id number] [place] [address]- 2[address] Jan, [facility] [address] [facility] [id number] [place] [address]- 8203 Jan, [facility] [address] [facility] [id number] [place] [address]- 3379 Jan, [facility] [place] [facility] [address] [id number] [place] [address]- 1160 Dec, [facility] [place] [facility] [address] [id number] [place] [address]- 9318 Dec, [facility] [place] [facility] [address] [facility] [id number] [place] [address]- 0211 Apr, [facility] [place] [facility] [address] [facility] [id number] [place] [address]- 0643 Jan, [facility] [place] [facility] [address] [id number] [place] [address]- 0201 Jan, [facility] [place] [facility] [address] [id number] [place] [address]- 4338 Dec, [facility] [place] [facility] [address] [id number] [place] [address]- 6792 Dec, [facility] [place] [facility] [address] [facility] [id number] [place]- 2444 Nov, [facility] [place] [facility] [address] [id number] [place] [address]- 1549 Nov, [facility] [place] [facility] [address] [facility] [id number] [place] [address]- 5404 Sep, [facility] [place] [facility] [address] [facility] [id number] [place] [address]- 7426 Sep, [facility] [place] [address] [facility] [id number][place] [id number] Sep, [facility] [place] [address] [facility] [id number], [place] [id number] Sep, [facility] [place] [facility] [address] [facility] [id number] [place] [address]- 0828 Sep, [facility] [place] [facility] [address] [facility] [id number], [place] [address]- 2068 Sep, [facility] [place] [address] [facility] [id number], [place] [id number] Aug, [facility] [place] [facility] [address] [facility] [id number], [place] [address]- 4[address] Aug, [facility] [place] [facility] [address] [facility] [id number] [place] [address]- 2648 Aug, [facility] [place] [facility] [address] [facility] [id number] [place] [address]- 8434 Aug, [facility] [place] [address] [facility] [id number], [place] [id number] Jul, [facility] [place] [facility] [address] [id number] [place] [address] 28 Jul, 2011 [facility] [place] [facility] [address] [id number] [place] [address] Jul, [facility] [place] [facility] [address] [id number] [place] [address] Jul, [facility] [place] [facility] [address] [facility] [id number] [place] [address] May, [facility] [place] [facility] [address] [id number] [place] [address] Feb, [facility] [place] [facility] [address] [facility] [id number] [place] [address], [place] [address] Jan, [facility] [place] [facility] [address] [facility] [id number] [place] [address] Jan, [facility] [place] [facility] [address] [facility] [id number] [place] [address] Dec, [facility] [place] [facility] [address] [facility] [id number], [place] [address] Dec, [facility] [place] [facility] [address] [facility] [id number] [place] [address] Dec, [facility] [place] [facility] [address] [facility] [id number], [place] [address] Nov, [facility] [place] [facility] [address] [facility] [id number] [place] [address] Nov, [facility] [place] [facility] [address] [facility] [id number], [place] [address] Sep, [facility] [place] [facility] [address] [facility] [id number], [place] [address] Jul, [facility] [place] [facility] [address] [facility] [id number], [place] [address] Mar, [facility] [place] [facility] [address] [facility] [id number], [place] [address] Nov, [facility] [address] [facility] [id number] [place] [address] Nov, IMMUNIZATIONS No Known Immunizations SOCIAL HISTORY Never Assessed REASON FOR VISIT Anxiety Medication PLAN OF CARE VITAL SIGNS MEDICATIONS Unknown Medications RESULTS No Results PROCEDURES No Known procedures INSTRUCTIONS MEDICATIONS ADMINISTERED No Known Medications MEDICAL (GENERAL) HISTORY Type Description Date Medical History Fibromyalgia Medical History Chronic Consipation Medical History 08/16/16 [facility] general surgery center, Dr. Jimenez, hemorrhage [...] thyroid US with small hypoechoic area in [place] right lobe of the thyroid is of [...] Medical History MRI- Brain 05/29/2017 Medical History [place] Spotted Tick Fever Medical History Ebstein Feng Virus Surgical History hysterectomy, total with unilateral salpingo-oophorectomy ( USO) Surgical History cholecystectomy Surgical History tonsillectomy and adenoidectomy Surgical History hemorrhoidectomy Surgical History EGD Surgical History colonoscopy 08/25/16 Hospitalization History fever, HTN, abnormal head [facility] 05/28/17
--- OUTSIDE RECORDS SUMMARY | 2017-11-06 12:24 | XMS REPORT ---
Author Author MICHAEL CORREIA Organization [facility] Address [address] [place] [address] Care Team Providers Care Pension Consultant Name Role Phone MICHAEL CORREIA Unavailable PROBLEMS Type Condition ICD9-CM Code [id number] Code Onset Dates Condition Status SNOMED Code Problem Major depressive disorder, single episode, unspecified F32.9 Active 79741054 Problem Thyroid nodule E04.1 Active 40650910 Problem Severe single current episode of major depressive disorder, without psychotic features F32.2 Active 66296592 Problem Severe episode of recurrent major depressive disorder, without psychotic features F33.2 Active 132474756024 Problem Chronic tension-type headache, intractable G44.221 Active 843523312 Problem Constipation, chronic K59.09 Active 883288498 Problem Essential hypertension I10 Active 62120278 Problem Non morbid obesity due to excess calories E66.09 Active 776772895 Problem 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 Active 430674431 Problem RMSF (White Pigeon spotted 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 Active 752285328 Problem Abnormal brain MRI R90.89 Active 265533687 Problem Abnormal mammogram of left breast R92.8 Active 029440189 Problem Diarrhea, unspecified type R19.7 Active 87041331 Problem Controlled substance agreement signed Z79.899 Active 588594018 Problem Other chronic pain G89.29 Active 990842322 Problem Scoliosis of thoracolumbar spine, unspecified scoliosis type M41.9 Active 706391819 Problem 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 Active 315188447 Problem Recurrent fever A68.9 Active 064415324 Problem Epigastric abdominal pain R10.13 Active 19274719 Problem Abnormal mammogram R92.8 Active 209583729 Problem Pain in thoracic spine M54.6 Active 145772236972127 Problem Cervicalgia M54.2 Active 2561416598125 Problem Radicular low back pain M54.10 Active 73981938 Problem Muscle spasm M62.838 Active 56612833 Problem Other chronic pain G89.29 Active 024470337 Problem Fibromyalgia M79.7 Active 001074535 Problem Anxiety F41.9 Active 597447840 Problem Acute bilateral low back pain with sciatica, sciatica laterality unspecified M54.40 Active 898911736 ALLERGIES No Information ENCOUNTERS Encounter Location Date Diagnosis [facility] [address] [id number] [id number] Sep, [facility] [address] [id number] Sep, [facility] [address] [facility] [address] [id number] [id number] Sep, [facility] [address] [id number] [address] Sep, Fibromyalgia M79.7 [facility] [address] [id number][place] [id number] Sep, Epigastric abdominal pain R10.13 and Diarrhea, unspecified type R19.7 [facility] [id number], [place] [id number] Sep, Abnormal mammogram of left breast R92.8 [facility] [id number], [place] [id number] Sep, Abnormal mammogram R92.8 [facility] [id number], [place] [id number] Sep, [facility] [id number] [place] [address] [id number] Aug, Abnormal mammogram R92.8 [facility] [address] [id number][place] [id number] Aug, [facility] [id number] [place] [address] [id number] Aug, [facility] [id number], [place] [id number] Aug, Screening breast examination Z12.31 and At risk for bone density loss Z91.89 [facility] [place] [address] [id number][place] [address] Aug, [facility] [place] [address] [id number] [place] [id number] Aug, [facility] [place] [address] [id number] [place] [id number] Aug, Other chronic pain G89.29 [facility] [place] [address] [id number], [place] [id number] Aug, [facility] [place] [address] [id number][place] [id number] Aug, [facility] [place] [address] [id number] [place] [id number] Aug, [facility] [place] [address] [id number] [place] [id number] Aug, Fibromyalgia M79.7 ; Anxiety F41.9 ; High risk medication use Z79.899 ; Other chronic pain G89.29 ; Recurrent fever A68.9 ; 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 and RMSF (White Pigeon spotted 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 [facility] [place] [address] [id number], [place] [id number] Jul, [facility] [place] [address] [id number], [place] [id number] Jul, [facility] [place] [address] [id number], [place] 540361637 Jul, Muscle spasm M62.838 and Anxiety F41.9 [facility] [place] [address] [id number], [place] [id number] Jul, [facility] [place] [address] [id number], [place] [id number] Jul, [facility] [place] [address] [id number], [place] [id number] Jul, [facility] [address] [id number], [place] [id number] Jul, [facility] [place] [address] [id number], [place] 041122662 Jul, [facility] [place] [address] [id number], [place] [id number] Jul, [facility] [place] [address] [id number] [place] [id number] Jul, [facility] [place] [address] [id number] [place] [id number] Jul, [facility] [place] [address] [id number] [place] [id number] Jul, [facility] [place] [address] [id number] [place] [id number] Jul, [facility] [place] [address] [id number] [place] [id number] Jul, Radicular low back pain M54.10 ; Other chronic pain G89.29 and Fibromyalgia M79.7 [facility] [place] [address] [id number] [place] [id number] Jul, [facility] [place] [address] [id number] [place] [id number] Jul, [facility] [place] [address] [id number], [place] [id number] Jul, [facility] [place] [address] [id number] [place] [id number] June, [facility] [place] [address] [id number], [place] [id number] June, [facility] [place] [address] [id number] [place] 523[address]32 June, 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 ; Recurrent fever A68.9 ; Other chronic pain G89.29 ; Radicular low back pain M54.10 ; Chronic tension- type headache, intractable G44.221 ; Essential hypertension I10 ; RMSF (White Pigeon spotted 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 and Abnormal brain MRI R90.89 [facility] [place] [address] [id number], [place] [id number] June, [facility] [address] [id number] [id number] June, 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 and RMSF (White Pigeon spotted 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 [facility] [place] [address] [id number] [place] [id number] June, [facility] [place] [address] [id number] [place] [id number] June, [facility] [place] [id number] [place] [address] [id number] June, RMSF (White Pigeon spotted 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 and 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 [facility] [place] [id number] [place] [address] [id number] June, [facility] [place] [address] [id number] [place] [address] [id number] June, [facility] [place] [id number] [place] [address] [id number] June, [facility] [id number] [place] [address] June, [facility] [place] [id number] [place] [address] [id number] June, [facility] [id number] [place] [address] June, Radicular low back pain M54.10 and Scoliosis of thoracolumbar spine, unspecified scoliosis type M41.9 [facility] [place] [address] [id number], [place] [id number] June, [facility] [place] [id number], [place] [id number] June, [facility] [place] [address] [id number], [place] [id number] June, [facility] [place] [address] [id number], [place] [id number] June, [facility] [place] [id number] [place] [address] [id number] June, RMSF (White Pigeon spotted 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 [facility] [place] [address] [id number], [place] [id number] June, [facility] [place] [address] [id number], [place] [id number] June, Muscle spasm M62.838 [facility] [id number], [place] [id number] June, [facility] [id number] [place] [address] [id number] May, [facility] [id number], [place] [id number] May, [facility] [id number] [place] [address] [id number] May, [facility] [address] [facility] [address] [id number] [id number] May, RMSF (White Pigeon spotted 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 [facility] [address] [facility] [address] [id number], [place] [id number] May, Essential hypertension I10 [facility] [address]00565100[place] [address] May, [facility] [id number] [place] [address] [id number] May, Other chronic pain G89.29 [facility] [id number] [place] [address] [id number] May, [facility] [id number] [place] [address] [id number] May, [facility] [id number] [place] [address] [id number] May, [facility] [id number] [place] [address] [id number] May, [facility] [id number], [place] [id number] May, RMSF (White Pigeon spotted 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 ; Nausea R11.0 ; [...] disorder, single episode, unspecified F32.9 [facility] [address] [id number] [place] [address] May, White Pigeon spotted fever A77.0 [facility] [place] [address] [id number] [place] [id number] May, [facility] [place] [address] [id number] [place] [id number] May, [facility] [address] [id number] [place] [address]- [address] May, [facility] [place] [address] [id number] [place] [id number] May, [facility] [place] [address] [id number] [place] [id number] May, [facility] [place] [address] [id number] [place] [id number] May, [facility] [place] [address] [id number] [place] [id number] May, [facility] [place] [address] [id number] [place] [id number] May, [facility] [place] [address] [id number] [place] [id number] May, [facility] [place] [address] [id number] [place] [id number] May, [facility] [place] [address] [id number] [place] [id number] May, [facility] [place] [address] [id number] [place] [id number] May, [facility] [place] [address] [id number] [place] [id number] May, [facility] [place] [address] [id number] [place] [id number] May, [facility] [place] [address] [id number] [place] [id number] May, [facility] [place] [address] [id number] [place] [id number] May, [facility] [place] [address] [id number], [place] [id number] May, Radicular low back pain M54.10 ; Other chronic pain G89.29 ; Fibromyalgia M79.7 ; Cervicalgia M54.2 ; Pain in thoracic spine M54.6 and Scoliosis of thoracolumbar spine, unspecified scoliosis type M41.[address] [id number], [place] [id number] May, [facility] [id number], [place] [id number] Apr, Muscle spasm M62.[address] [place] [address] [id number] Apr, [id number] [place] [address] [id number] Apr, Fibromyalgia M79.7 ; Muscle spasm M62.838 ; Other chronic pain G89.29 ; Vision changes H53.9 ; Headache above the eye region R51 ; Major depressive disorder, single episode, unspecified F32.9 ; Neck pain M54.2 and Thyroid nodule E04.1 [address]00565100[place], [place] [id number] Apr, Other chronic pain G89.29 [address] [place] [address] [id number] Apr, Chronic tension-type headache, intractable G44.221 [address] [place] [address] [id number] Mar, Other chronic pain G89.29 ; Scoliosis of thoracolumbar spine, unspecified scoliosis type M41.9 ; Muscle spasm M62.838 ; Other chronic pain G89.29 ; Headache above the eye region R51 ; Hospital discharge follow-up Z09 ; Lumbar back pain with radiculopathy affecting right lower extremity M54.17 ; Lumbar back pain with radiculopathy affecting left lower extremity M54.17 and Myalgia M79.1 [address]00565100[place], [place] [id number] Mar, [address] [place] [id number] [place] [address] [id number] 14 Mar, 2017 Other chronic pain G89.29 [facility] [id number] [place] [address] [id number] 14 Mar, 2017 Radicular low back pain M54.10 [facility] [id number] [place] [address] [id number] Feb, [place] [id number] [place] [address] [id number] Feb, [facility] [id number] [place] [address] [id number] Feb, Muscle spasm M62.838 [place] [id number] [place] [address] [id number] Feb, Itching L29.9 and Acute bilateral back pain, unspecified back location M54.9 [place] [id number] [place] [address] [id number] Feb, History of pneumonia Z87.01 ; Cough R05 ; Radicular low back pain M54.10 ; Scoliosis of thoracolumbar spine, unspecified scoliosis type M41.9 ; Elevated liver enzymes R74.8 ; Influenza J11.1 ; Severe single current episode of major depressive disorder, without psychotic features F32.2 and Stressful life events affecting family and household Z63.79 [place] [id number] [place] [address] [id number] Jan, Muscle spasm M62.838 [place] [id number] [place] [address] [id number] Jan, Post-nasal drainage R09.82 ; Anxiety F41.9 and Cough R05 [place] [id number] [place] [address] [id number] Jan, Severe episode of recurrent major depressive disorder, without psychotic features F33.[address] [place] [address] [id number] Jan, Muscle spasm M62.838 [address] [id number] [place] [address] [id number] Jan, Acute recurrent maxillary sinusitis J01.01 and Breast tenderness in female N64.4 [facility] [id number], [place] [id number] Nov, [facility] [id number] [place] [address] [id number] Nov, [facility] [id number] [place] [address] [id number] Nov, Radicular low back pain M54.10 and Muscle spasm M62.838 [facility] [id number] [place] [address] [id number] Nov, [place] [id number] [place] [address] [id number] Nov, Viral disease B34.9 ; Fever, unspecified fever cause R50.9 ; Other fatigue R53.83 and Other malaise R53.81 [facility] [id number] [place] [address] [id number] Nov, Thyroid nodule E04.1 [place] [id number] [place] [address] [id number] Nov, Severe episode of recurrent major depressive disorder, without psychotic features F33.[address] [place] [address] [id number] Nov, Acute nasopharyngitis J00 [address] [place] [address] [id number] Oct, Scoliosis of thoracolumbar spine, unspecified scoliosis type M41.9 ; Muscle spasm M62.838 ; Thyroid nodule E04.1 ; Pain in thoracic spine M54.6 ; Other chronic pain G89.29 ; Cervicalgia M54.2 ; Radicular low back pain M54.10 ; Severe episode of recurrent major depressive disorder, without psychotic features F33.2 and High risk medication use Z79.899 [facility] [address]005[address]100[place], [place] 67077620- [address] Oct, [facility] [address] [id number][place] [id number] Sep, Scoliosis of thoracolumbar spine, unspecified scoliosis type M41.9 ; Muscle spasm M62.838 ; Thyroid nodule E04.1 ; Pain in thoracic spine M54.6 ; Other chronic pain G89.29 ; Cervicalgia M54.2 ; Controlled substance agreement signed Z79.899 ; Vaginal yeast infection B37.3 and Radicular low back pain M54.10 [facility] [id number] [place] [address] [id number] Sep, Scoliosis of thoracolumbar spine, unspecified scoliosis type M41.9 and Muscle spasm M62.838 [id number] [place] [address] [id number] Sep, Severe episode of recurrent major depressive disorder, without psychotic features F33.[address] [id number] Aug, Severe episode of recurrent major depressive disorder, without psychotic features F33.2 ; Thyroid nodule E04.1 ; Constipation, chronic K59.09 and Non morbid obesity due to excess calories E66.09 [address] [id number] [place] [address] [id number] Aug, Non morbid obesity due to excess calories E66.09 and Thyroid nodule E04.[address] [id number] Aug, [address] [id number] Jul, Severe episode of recurrent major depressive disorder, without psychotic features F33.2 ; Thyroid nodule E04.1 ; Constipation, chronic K59.09 and Non morbid obesity due to excess calories E66.09 [address] [place] [id number] [place] [address] [id number] June, Sore throat J02.9 and Major depressive disorder, single episode, unspecified F32.9 [facility] [address] [address] May, [facility] [address] [address]- [address] May, [facility] [address] [address]- [address] 14 Mar, 2013 [facility] [address] [id number] [place] [address]- 4[address] 14 Mar, 2013 [facility] [address] [id number] [place] [address]- 8986 06 Mar, 2013 [facility] [address] [facility] [id number] [place] [address]- 0266 Mar, [facility] [address] [id number] [place] [address]- 4376 Jan, [facility] [address] [id number] [place] [address]- 4028 Jan, [facility] [address] [id number] [place] [address]- 7672 Jan, [facility] [address] [facility] [id number] [place] [address]- 9038 Jan, [facility] [address] [id number] [place] [address]- 3403 Jan, [facility] [address] [facility] [id number] [place] [address]- 9354 Jan, [facility] [address] [facility] [id number] [place] [address]- 9560 Jan, [facility] [address] [facility] [id number] [place] [address]- 3072 Jan, [facility] [place] [facility] [address] [id number] [place] [address]- 3529 Dec, [facility] [place] [facility] [address] [id number] [place] [address]- 7806 Dec, [facility] [place] [facility] [address] [facility] [id number] [place] [address]- 8779 Apr, [facility] [place] [facility] [address] [facility] [id number] [place] [address]- 0317 Jan, [facility] [place] [facility] [address] [id number] [place] [address]- 2508 Jan, [facility] [place] [facility] [address] [id number] [place] [address]- 0646 Dec, [facility] [place] [facility] [address] [id number] [place] [address]- 7496 Dec, [facility] [place] [facility] [address] [facility] [id number] [place] 243[place]- [address]16 Nov, [facility] [place] [facility] [address] [id number] [place] [address] Nov, [facility] [place] [facility] [address] [facility] [id number] [place] [address] Sep, [facility] [place] [facility] [address] [facility] [id number] [place] [address] Sep, [facility] [address] [facility] [id number] [id number] Sep, [facility] [address] [facility] [id number][place] [id number] Sep, [facility] [place] [facility] [address] [facility] [id number] [place] [address] Sep, [facility] [place] [facility] [address] [facility] [id number], [place] [address] Sep, [facility] [address] [facility] [id number][place] [id number] Aug, [facility] [place] [facility] [address] [facility] [id number], [place] [address] Aug, [facility] [place] [facility] [address] [facility] [id number] [place] [address] Aug, [facility] [place] [facility] [address] [facility] [id number] [place] [address] Aug, [facility] [address] [facility] [id number][place] [id number] Jul, [facility] [place] [facility] [address] [id number] [place] [address] 28 Jul, 2011 [facility] [place] [facility] [address] [id number] [place] [address] Jul, [facility] [place] [facility] [address] [id number] [place] [address] Jul, [facility] [place] [facility] [address] [facility] [id number] [place] [address] May, [facility] [place] [facility] [address] [id number] [place] [address] Feb, [facility] [place] [facility] [address] [facility] [id number] [place] [address], [place] [address] Jan, [facility] [place] [facility] [address] [facility] [id number] [place] [address] Jan, [facility] [place] [facility] [address] [facility] [id number] [place] [address] Dec, [facility] [place] [facility] [address] [facility] [id number], [place] [address] Dec, [facility] [place] [facility] [address] [facility] [id number] [place] [address] Dec, [facility] [place] [facility] [address] [facility] [id number], [place] [address] Nov, [facility] [place] [facility] [address] [facility] [id number] [place] [address] Nov, [facility] [place] [facility] [address] [facility] [id number], [place] [address] Sep, [facility] [place] [facility] [address] [facility] [id number], [place] [address] Jul, [facility] [place] [facility] [address] [facility] [id number], [place] [address] Mar, [facility] [place] [facility] [address] [facility] [id number], [place] [address] Nov, [facility] [address] [facility] [id number] [place] [address] Nov, IMMUNIZATIONS No Known Immunizations SOCIAL HISTORY Never Assessed REASON FOR VISIT Thank you PLAN OF CARE VITAL SIGNS MEDICATIONS Unknown Medications RESULTS No Results PROCEDURES No Known procedures INSTRUCTIONS MEDICATIONS ADMINISTERED No Known Medications MEDICAL (GENERAL) HISTORY Type Description Date Medical History Fibromyalgia Medical History Chronic Consipation Medical History 08/16/16 [facility] general surgery center, Dr. Jimenez, hemorrhage of [...] Medical History MRI- Brain 05/29/2017 Medical History [place] Spotted Tick Fever Medical History Ebstein Feng Virus Surgical History hysterectomy, total with unilateral salpingo-oophorectomy ( USO) Surgical History cholecystectomy Surgical History tonsillectomy and adenoidectomy Surgical History hemorrhoidectomy Surgical History EGD Surgical History colonoscopy 08/25/16 Hospitalization History fever, HTN, abnormal head [facility] 05/28/17
--- OUTSIDE RECORDS SUMMARY | 2017-11-06 12:24 | XMS REPORT ---
Author Author MICHAEL CORREIA Organization [facility] Address [address] [place] [address] Care Team Providers Care Case Management Manager Name Role Phone MICHAEL CORREIA Unavailable PROBLEMS Type Condition ICD9-CM Code XPF15-UZ Code Onset Dates Condition Status SNOMED Code Problem Major depressive disorder, single episode, unspecified F32.9 Active 16528894 Problem Thyroid nodule E04.1 Active 04923767 Problem Severe single current episode of major depressive disorder, without psychotic features F32.2 Active 05878756 Problem Severe episode of recurrent major depressive disorder, without psychotic features F33.2 Active 491259609686 Problem Chronic tension-type headache, intractable G44.221 Active 779173575 Problem Constipation, chronic K59.09 Active 254785475 Problem Essential hypertension I10 Active 50307446 Problem Non morbid obesity due to excess calories E66.09 Active 082817071 Problem 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 Active 088119581 Problem RMSF (Semmes spotted 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 Active 067084641 Problem Abnormal brain MRI R90.89 Active 318088521 Problem Abnormal mammogram of left breast R92.8 Active 714786096 Problem Diarrhea, unspecified type R19.7 Active 86041440 Problem Controlled substance agreement signed Z79.899 Active 071388898 Problem Other chronic pain G89.29 Active 136465765 Problem Scoliosis of thoracolumbar spine, unspecified scoliosis type M41.9 Active 049517027 Problem 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 Active 881284029 Problem Recurrent fever A68.9 Active 023811886 Problem Epigastric abdominal pain R10.13 Active 81646598 Problem Abnormal mammogram R92.8 Active 861117060 Problem Pain in thoracic spine M54.6 Active 857739970645166 Problem Cervicalgia M54.2 Active 6748076177207 Problem Radicular low back pain M54.10 Active 67201643 Problem Muscle spasm M62.838 Active 34179282 Problem Other chronic pain G89.29 Active 521863434 Problem Fibromyalgia M79.7 Active 459690406 Problem Anxiety F41.9 Active 522134039 Problem Acute bilateral low back pain with sciatica, sciatica laterality unspecified M54.40 Active [id number] ALLERGIES No Information ENCOUNTERS Encounter Location Date Diagnosis [facility] [address] [id number], [place] [id number] Sep, [facility] [address] [address] Sep, [facility] [address] [facility] [address] [id number] [id number] Sep, [facility] [address] [id number] [address] Sep, Fibromyalgia M79.7 [facility] [address] [id number][place] [id number] Sep, Epigastric abdominal pain R10.13 and Diarrhea, unspecified type R19.7 [facility] [id number], [place] [id number] Sep, Abnormal mammogram of left breast R92.8 [facility] [id number], [place] [id number] Sep, Abnormal mammogram R92.8 [facility] [id number], [place] [address] Sep, [facility] [id number] [place] [address] [id number] Aug, Abnormal mammogram R92.8 [facility] [address] [id number][place] [id number] Aug, [facility] [id number] [place] [address] [id number] Aug, [facility] [id number], [place] 118[address]1625 Aug, Screening breast examination Z12.31 and At risk for bone density loss Z91.89 [facility] [place] [address] [id number], [place] [id number] Aug, [facility] [place] [address] [id number] [place] [address] Aug, [facility] [place] [address] [id number] [place] [id number] Aug, Other chronic pain G89.29 [facility] [place] [address] [id number], [place] [id number] Aug, [facility] [place] [address] [id number], [place] [id number] Aug, [facility] [place] [address] [id number] [place] [id number] Aug, [facility] [place] [address] [id number] [place] [address]209[address] Aug, Fibromyalgia M79.7 ; Anxiety F41.9 ; High risk medication use Z79.899 ; Other chronic pain G89.29 ; Recurrent fever A68.9 ; 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 and RMSF (Semmes spotted 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 [facility] [place] [address] [id number], [place] [id number] Jul, [facility] [place] [address] [id number], [place] 11183[address]48 Jul, [facility] [place] [address] [id number], [place] 627454450 Jul, Muscle spasm M62.838 and Anxiety F41.9 [facility] [place] [address] [id number], [place] 511387812 Jul, [facility] [place] [address] [id number], [place] [id number] Jul, [facility] [place] [address] [id number], [place] [address]84[address] Jul, [facility] [address] [id number], [place] [address] Jul, [facility] [place] [address] [id number], [place] [id number] Jul, [facility] [place] [address] [id number], [place] [id number] Jul, [facility] [place] [address] [id number] [place] [id number] Jul, [facility] [place] [address] [id number] [place] [id number] Jul, [facility] [place] [address] [id number] [place] [id number] Jul, [facility] [place] [address] [id number] [place] 964184480 Jul, [facility] [place] [address] [id number] [place] 75387[address] Jul, Radicular low back pain M54.10 ; Other chronic pain G89.29 and Fibromyalgia M79.7 [facility] [place] [address] [id number] [place] 2679[address] Jul, [facility] [place] [address] [id number] [place] 114309[address] Jul, [facility] [place] [address] [id number], [place] 710966976 Jul, [facility] [place] [address] [id number] [place] [id number] June, [facility] [place] [address] [id number], [place] [id number] June, [facility] [place] [address] [id number] [place] 5073[address] June, 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 ; Recurrent fever A68.9 ; Other chronic pain G89.29 ; Radicular low back pain M54.10 ; Chronic tension- type headache, intractable G44.221 ; Essential hypertension I10 ; RMSF (Semmes spotted 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 and Abnormal brain MRI R90.89 [facility] [place] [address] [id number], [place] [id number] June, [facility] [place] [id number] [address] June, 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 and RMSF (Semmes spotted 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 [facility] [place] [address] [id number] [place] [address]678950[address] June, [facility] [place] [address] [id number] [place] 46515[address] June, [facility] [place] [id number] [place] [address] [id number] June, RMSF (Semmes spotted 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 and 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 [facility] [place] [id number] [place] [address] [id number] June, [facility] [place] [address] [id number] [place] [address] [id number] June, [facility] [place] [id number] [place] [address] [id number] June, [facility] [id number] [place] [address] June, [facility] [place] [id number] [place] [address] [id number] June, [facility] [place] [id number] [place] [address] June, Radicular low back pain M54.10 and Scoliosis of thoracolumbar spine, unspecified scoliosis type M41.9 [facility] [place] [address] [id number], [place] [id number] June, [facility] [place] [id number], [place] [id number] June, [facility] [place] [address] [id number], [place] [id number] June, [facility] [place] [address] [id number], [place] [id number] June, [facility] [place] [id number] [place] [address] [id number] June, RMSF (Semmes spotted 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 [facility] [place] [address] [id number], [place] [id number] June, [facility] [place] [address] [id number], [place] 933923891 June, Muscle spasm M62.838 [facility] [id number], [place] [id number] June, [facility] [id number] [place] [address] [id number] May, [facility] [id number], [place] [id number] May, [facility] [id number] [place] [address] [id number] May, [facility] [address] [facility] [address] [address] [id number] [id number] May, RMSF (Semmes spotted 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 [facility] [address] [facility] [address] [address] [id number], [place] [id number] May, Essential hypertension I10 [facility] [address]00565100[place], [place] [address] May, [facility] [id number] [place] [address] [id number] May, Other chronic pain G89.29 [facility] [id number] [place] [address] [id number] May, [facility] [id number] [place] [address] [id number] May, [facility] [id number] [place] [address] [id number] May, [facility] [id number] [place] [address] [id number] May, [facility] [id number], [place] [id number] May, RMSF (Semmes spotted 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 ; Nausea R11.0 ; [...] depressive disorder, single episode, unspecified F32.9 [facility] [address] [id number] [place] [address] May, Semmes spotted fever A77.0 [facility] [place] [address] [id number] [place] [id number] May, [facility] [place] [address] [id number] [place] [id number] May, [facility] [address] [id number] [place] [address]- [address] May, [facility] [place] [address] [id number] [place] [id number] May, [facility] [place] [address] [id number] [place] [id number] May, [facility] [place] [address] [id number] [place] [id number] May, [facility] [place] [address] [id number] [place] [phone] May, [facility] [place] [address] [id number] [place] [id number] May, [facility] [place] [address] [id number] [place] 150750031 May, [facility] [place] [address] [id number] [place] 650968980 May, [facility] [place] [address] [id number] [place] 985596441 May, [facility] [place] [address] [id number] [place] [id number] May, [facility] [place] [address] [id number] [place] [id number] May, [facility] [place] [address] [id number] [place] [id number] May, [facility] [place] [address] [id number] [place] [id number] May, [facility] [place] [address] [id number] [place] 855146263 May, [facility] [place] [address] [id number], [place] 787081718 May, Radicular low back pain M54.10 ; Other chronic pain G89.29 ; Fibromyalgia M79.7 ; Cervicalgia M54.2 ; Pain in thoracic spine M54.6 and Scoliosis of thoracolumbar spine, unspecified scoliosis type M41.[address] [id number], [place] [id number] May, [facility] [id number], [place] [id number] Apr, Muscle spasm M62.[address] [place] [address] [id number] Apr, [place] [id number] [place] [address] [id number] Apr, Fibromyalgia M79.7 ; Muscle spasm M62.838 ; Other chronic pain G89.29 ; Vision changes H53.9 ; Headache above the eye region R51 ; Major depressive disorder, single episode, unspecified F32.9 ; Neck pain M54.2 and Thyroid nodule E04.1 [address]00565100[place], [place] [id number] Apr, Other chronic pain G89.29 [address] [place] [address] [id number] Apr, Chronic tension-type headache, intractable G44.[address] [place] [address] [id number] Mar, Other chronic pain G89.29 ; Scoliosis of thoracolumbar spine, unspecified scoliosis type M41.9 ; Muscle spasm M62.838 ; Other chronic pain G89.29 ; Headache above the eye region R51 ; Hospital discharge follow-up Z09 ; Lumbar back pain with radiculopathy affecting right lower extremity M54.17 ; Lumbar back pain with radiculopathy affecting left lower extremity M54.17 and Myalgia M79.1 [address]00565100[place], [place] [id number] Mar, [place] [id number] [place] [address] [id number] 14 Mar, 2017 Other chronic pain G89.29 [facility] [id number] [place] [address] [id number] 14 Mar, 2017 Radicular low back pain M54.10 [facility] [id number] [place] [address] [id number] Feb, [place] [id number] [place] [address] [id number] Feb, [facility] [id number] [place] [address] [id number] Feb, Muscle spasm M62.838 [place] [id number] [place] [address] [id number] Feb, Itching L29.9 and Acute bilateral back pain, unspecified back location M54.9 [place] [id number] [place] [address] [id number] Feb, History of pneumonia Z87.01 ; Cough R05 ; Radicular low back pain M54.10 ; Scoliosis of thoracolumbar spine, unspecified scoliosis type M41.9 ; Elevated liver enzymes R74.8 ; Influenza J11.1 ; Severe single current episode of major depressive disorder, without psychotic features F32.2 and Stressful life events affecting family and household Z63.79 [place] [id number] [place] [address] [id number] Jan, Muscle spasm M62.838 [place] [id number] [place] [address] [id number] Jan, Post-nasal drainage R09.82 ; Anxiety F41.9 and Cough R05 [place] [id number] [place] [address] [id number] Jan, Severe episode of recurrent major depressive disorder, without psychotic features F33.[address] [place] [address] [id number] Jan, Muscle spasm M62.838 [place] [id number] [place] [address] [id number] Jan, Acute recurrent maxillary sinusitis J01.01 and Breast tenderness in female N64.4 [facility] [id number], [place] [id number] Nov, [facility] [id number] [place] [address] [id number] Nov, [facility] [id number] [place] [address] [id number] Nov, Radicular low back pain M54.10 and Muscle spasm M62.838 [facility] [id number] [place] [address] [id number] Nov, [place] [id number] [place] [address] [id number] Nov, Viral disease B34.9 ; Fever, unspecified fever cause R50.9 ; Other fatigue R53.83 and Other malaise R53.81 [facility] [id number] [place] [address] [id number] Nov, Thyroid nodule E04.1 [place] [id number] [place] [address] [id number] Nov, Severe episode of recurrent major depressive disorder, without psychotic features F33.[address] [place] [address] [id number] Nov, Acute nasopharyngitis J00 [address] [place] [address] [id number] Oct, Scoliosis of thoracolumbar spine, unspecified scoliosis type M41.9 ; Muscle spasm M62.838 ; Thyroid nodule E04.1 ; Pain in thoracic spine M54.6 ; Other chronic pain G89.29 ; Cervicalgia M54.2 ; Radicular low back pain M54.10 ; Severe episode of recurrent major depressive disorder, without psychotic features F33.2 and High risk medication use Z79.899 [facility] [address]00565100[place], [place] 67573512- [address] Oct, [facility] [address] [id number], [place] [id number] Sep, Scoliosis of thoracolumbar spine, unspecified scoliosis type M41.9 ; Muscle spasm M62.838 ; Thyroid nodule E04.1 ; Pain in thoracic spine M54.6 ; Other chronic pain G89.29 ; Cervicalgia M54.2 ; Controlled substance agreement signed Z79.899 ; Vaginal yeast infection B37.3 and Radicular low back pain M54.10 [facility] [id number] [place] [address] [id number] Sep, Scoliosis of thoracolumbar spine, unspecified scoliosis type M41.9 and Muscle spasm M62.838 [place] [id number] [place] [address] [id number] Sep, Severe episode of recurrent major depressive disorder, without psychotic features F33.[address] [id number] Aug, Severe episode of recurrent major depressive disorder, without psychotic features F33.2 ; Thyroid nodule E04.1 ; Constipation, chronic K59.09 and Non morbid obesity due to excess calories E66.09 [place] [id number] [place] [address] [id number] Aug, Non morbid obesity due to excess calories E66.09 and Thyroid nodule E04.[address] [id number] Aug, [address] [id number] Jul, Severe episode of recurrent major depressive disorder, without psychotic features F33.2 ; Thyroid nodule E04.1 ; Constipation, chronic K59.09 and Non morbid obesity due to excess calories E66.09 [place] [id number] [place] [address] [id number] June, Sore throat J02.9 and Major depressive disorder, single episode, unspecified F32.9 [facility] [address] [address]- [address] May, [facility] [address] [address]- [address] May, [facility] [address] [address]- [address] 14 Mar, 2013 [facility] [address] [id number] [place] [address]- 240[address] 14 Mar, 2013 [facility] [address] [id number] [place] [address]- 9526 06 Mar, 2013 [facility] [address] [facility] [id number] [place] [address]- 1316 Mar, [facility] [address] [id number] [place] [address]- 8226 Jan, [facility] [address] [id number] [place] [address]- 1225 Jan, [facility] [address] [id number] [place] [address]- 0641 Jan, [facility] [address] [facility] [address] [id number] [place] [address]- 8838 Jan, [facility] [address] [id number] [place] [address]- 8376 Jan, [facility] [address] [facility] [address] [id number] [place] [address]- 6460 Jan, [facility] [address] [facility] [address] [id number] [place] [address]- 9508 Jan, [facility] [address] [facility] [address] [id number] [place] [address]- 0381 Jan, [facility] [place] [facility] [address] [id number] [place] [address]- 7825 Dec, [facility] [place] [facility] [address] [id number] [place] [address]- 5909 Dec, [facility] [place] [facility] [address] [facility] [address] [id number] [place] [address]- 6659 Apr, [facility] [place] [facility] [address] [facility] [address] [id number] [place] [address]- 7505 Jan, [facility] [place] [facility] [address] [id number] [place] [address]- 2705 Jan, [facility] [place] [facility] [address] [id number] [place] [address]- 1071 Dec, [facility] [place] [facility] [address] [id number] [place] [address]- 1728 Dec, [facility] [place] [facility] [address] [facility] [address] [id number] [place]87[place]- 4[address] Nov, [facility] [place] [facility] [address] [id number] [place] [address]- 6424 Nov, [facility] [place] [facility] [address] [facility] [address] [id number] [place] [address]- 0095 Sep, [facility] [place] [facility] [address] [facility] [address] [id number] [place] [address]- 8720 Sep, [facility] [place] [address] [facility] [id number], [place] [id number] Sep, [facility] [place] [address] [facility] [id number], [place] [id number] Sep, [facility] [place] [facility] [address] [id number] [place] [address] Sep, [facility] [place] [facility] [address] [id number], [place] [address] Sep, [facility] [address] [facility] [id number][place] [id number] Aug, [facility] [place] [facility] [address] [id number], [place] [address] Aug, [facility] [place] [facility] [address] [id number] [place] [address] Aug, [facility] [place] [facility] [address] [facility] [id number] [place] [address] Aug, [facility] [address] [facility] [id number][place] [id number] Jul, [facility] [place] [facility] [address] [id number] [place] [address] 28 Jul, 2011 [facility] [place] [facility] [address] [id number] [place] [address] Jul, [facility] [place] [facility] [address] [id number] [place] [address] Jul, [facility] [place] [facility] [address] [id number] [place] [address] May, [facility] [place] [facility] [address] [id number] [place] [address] Feb, [facility] [place] [facility] [address] [id number] [place] [address], [place] [address] Jan, [facility] [place] [facility] [address] [address] [id number] [place] [address] Jan, [facility] [place] [facility] [address] [address] [id number] [place] [address] Dec, [facility] [place] [facility] [address] [id number], [place] [address] Dec, [facility] [place] [facility] [address] [id number] [place] [address] Dec, [facility] [place] [facility] [address] [address] [id number], [place] [address] Nov, [facility] [place] [facility] [address] [address] [id number] [place] [address] Nov, [facility] [place] [facility] [address] [id number], [place] [address] Sep, [facility] [place] [facility] [address] [id number], [place] [address] Jul, [facility] [place] [facility] [address] [id number], [place] [address] Mar, [facility] [place] [facility] [address] [id number], [place] [address] Nov, [facility] [address] [id number] [place] [address] Nov, IMMUNIZATIONS No Known Immunizations SOCIAL HISTORY Never Assessed REASON FOR VISIT New PLAN OF CARE VITAL SIGNS MEDICATIONS Unknown Medications RESULTS No Results PROCEDURES No Known procedures INSTRUCTIONS MEDICATIONS ADMINISTERED No Known Medications MEDICAL (GENERAL) HISTORY Type Description Date Medical History Fibromyalgia Medical History Chronic Consipation Medical History 08/16/16 [facility] general surgery center, Dr. Jimenez, hemorrhage [...] Medical History MRI- Brain 05/29/2017 Medical History [place] Spotted Tick Fever Medical History Ebstein Feng Virus Surgical History hysterectomy, total with unilateral salpingo-oophorectomy ( USO) Surgical History cholecystectomy Surgical History tonsillectomy and adenoidectomy Surgical History hemorrhoidectomy Surgical History EGD Surgical History colonoscopy 08/25/16 Hospitalization History fever, HTN, abnormal head [facility] 05/28/17
--- OUTSIDE RECORDS SUMMARY | 2017-11-06 12:25 | XMS REPORT ---
Author Author MICHAEL CORREIA Organization [facility] Address [address] [place] [address] Care Team Providers Care Exhibit Preparator Name Role Phone MICHAEL CORREIA Unavailable PROBLEMS Type Condition ICD9-CM Code [id number] Code Onset Dates Condition Status SNOMED Code Problem Major depressive disorder, single episode, unspecified F32.9 Active 55365882 Problem Thyroid nodule E04.1 Active 57484811 Problem Severe single current episode of major depressive disorder, without psychotic features F32.2 Active 42857822 Problem Severe episode of recurrent major depressive disorder, without psychotic features F33.2 Active 530010112778 Problem Chronic tension-type headache, intractable G44.221 Active 364110906 Problem Constipation, chronic K59.09 Active 663955149 Problem Essential hypertension I10 Active 10610443 Problem Non morbid obesity due to excess calories E66.09 Active 754443568 Problem 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 Active 608414564 Problem RMSF ([place] spotted 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 Active 101697072 Problem Abnormal brain MRI R90.89 Active 959071251 Problem Abnormal mammogram of left breast R92.8 Active 627473678 Problem Diarrhea, unspecified type R19.7 Active 22848888 Problem Controlled substance agreement signed Z79.899 Active 447919170 Problem Other chronic pain G89.29 Active 043331032 Problem Scoliosis of thoracolumbar spine, unspecified scoliosis type M41.9 Active 596672853 Problem 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 Active 326634609 Problem Recurrent fever A68.9 Active 030698411 Problem Epigastric abdominal pain R10.13 Active 92516144 Problem Abnormal mammogram R92.8 Active 048564098 Problem Pain in thoracic spine M54.6 Active [id number] Problem Cervicalgia M54.2 Active 8758889344809 Problem Radicular low back pain M54.10 Active 66984062 Problem Muscle spasm M62.838 Active 61774267 Problem Other chronic pain G89.29 Active 219189727 Problem Fibromyalgia M79.7 Active 152756452 Problem Anxiety F41.9 Active 820745305 Problem Acute bilateral low back pain with sciatica, sciatica laterality unspecified M54.40 Active 645924718 ALLERGIES No Information ENCOUNTERS Encounter Location Date Diagnosis [facility] [address] [id number] [id number] Sep, [facility] [address] [address] Sep, [facility] [address] [facility] [address] [id number][place] [id number] Sep, [facility] [address] [id number] [address] Sep, Fibromyalgia M79.7 [facility] [address] [id number][place] [id number] Sep, Epigastric abdominal pain R10.13 and Diarrhea, unspecified type R19.7 [facility] [id number] [place] [id number] Sep, Abnormal mammogram of left breast R92.8 [facility] [id number] [place] [address] Sep, Abnormal mammogram R92.8 [facility] [id number] [place] [address]16[address] Sep, [facility] [id number] [place] [address] [id number] Aug, Abnormal mammogram R92.8 [facility] [address] [id number] [place] [id number] Aug, [facility] [address] [id number] [place] [address] [id number] Aug, [facility] [id number] [place] [id number] Aug, Screening breast examination Z12.31 and At risk for bone density loss Z91.89 [facility] [place] [address] [id number] [place] [id number] Aug, [facility] [place] [address] [id number] [place] [id number] Aug, [facility] [place] [address] [id number] [place] [address] Aug, Other chronic pain G89.29 [facility] [place] [address] [id number] [place] [id number] Aug, [facility] [place] [address] [id number] [place] 180306904 Aug, [facility] [place] [address] [id number] [place] [id number] Aug, [facility] [place] [address] [id number] [place] [address] Aug, Fibromyalgia M79.7 ; Anxiety F41.9 ; High risk medication use Z79.899 ; Other chronic pain G89.29 ; Recurrent fever A68.9 ; 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 and RMSF ([place] spotted 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 [facility] [place] [address] [id number] [place] [id number] Jul, [facility] [place] [address] [id number] [place] [id number] Jul, [facility] [place] [address] [id number] [place] 518073819 Jul, Muscle spasm M62.838 and Anxiety F41.9 [facility] [place] [address] [id number] [place] 632260135 Jul, [facility] [place] [address] [id number] [place] [id number] Jul, [facility] [place] [address] [id number] [place] [id number] Jul, [facility] [address] [id number], [place] [address] Jul, [facility] [place] [address] [id number] [place] 965693735 Jul, [facility] [place] [address] [id number] [place] [id number] Jul, [facility] [place] [address] [id number] [place] [id number] Jul, [facility] [place] [address] [id number] [place] [id number] Jul, [facility] [place] [address] [id number] [place] [id number] Jul, [facility] [place] [address] [id number] [place] 480747[address] Jul, [facility] [place] [address] [id number] [place] 527645374 Jul, Radicular low back pain M54.10 ; Other chronic pain G89.29 and Fibromyalgia M79.7 [facility] [place] [address] [id number] [place] 5601[address]233 Jul, [facility] [place] [address] [id number] [place] 5650[address]449 Jul, [facility] [place] [address] [id number] [place] [id number] Jul, [facility] [place] [address] [id number] [place] [id number] June, [facility] [place] [address] [id number] [place] [id number] June, [facility] [place] [address] [id number] [place] [address] June, 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 ; Recurrent fever A68.9 ; Other chronic pain G89.29 ; Radicular low back pain M54.10 ; Chronic tension- type headache, intractable G44.221 ; Essential hypertension I10 ; RMSF ([place] spotted 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 and Abnormal brain MRI R90.89 [facility] [place] [address] [id number] [place] [phone] June, [facility] [address] [id number] [id number] June, 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 and RMSF ([place] spotted 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 [facility] [place] [address] [id number] [place] [address] June, [facility] [place] [address] [id number] [place] [address] June, [facility] [place] [address] [id number] [place] [address] [id number] June, RMSF ([place] spotted 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 and 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 [facility] [place] [address] [id number] [place] [address] [id number] June, [facility] [place] [address] [id number] [place] [address] [id number] June, [facility] [place] [id number] [place] [address] [id number] June, [facility] [id number] [place] [address] June, [facility] [place] [id number] [place] [address] [id number] June, [facility] [id number] [place] [address] June, Radicular low back pain M54.10 and Scoliosis of thoracolumbar spine, unspecified scoliosis type M41.9 [facility] [place] [address] [id number] [place] [id number] June, [facility] [place] [id number] [place] [id number] June, [facility] [place] [address] [id number] [place] [id number] June, [facility] [place] [address] [id number] [place] [phone] June, [facility] [place] [id number] [place] [address] [id number] June, RMSF ([place] spotted 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 [facility] [place] [address] [id number] [place] [phone] June, [facility] [place] [address] [id number] [place] [id number] June, Muscle spasm M62.838 [facility] [id number] [place] [id number] June, [facility] [id number] [place] [address] [id number] May, [facility] [id number] [place] [id number] May, [facility] [id number] [place] [address] [id number] May, [facility] [address] [id number], [place] [phone] May, RMSF ([place] spotted 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 [facility] [address] [id number], [place] [id number] May, Essential hypertension I10 [facility] [address]00565100[place], [place] [address] May, [facility] [id number] [place] [address] [id number] May, Other chronic pain G89.29 [facility] [id number] [place] [address] [id number] May, [facility] [id number] [place] [address] [id number] May, [facility] [id number] [place] [address] [id number] May, [facility] [id number] [place] [address] [id number] May, [facility] [id number] [place] [id number] May, RMSF ([place] spotted 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 ; Nausea R11.0 ; [...] disorder, single episode, unspecified F32.9 [facility] [address] [id number] [place] [address] May, [place] spotted fever A77.0 [facility] [place] [address] [id number] [place] [id number] May, [facility] [place] [address] [id number] [place] [id number] May, [facility] [address] [id number] [place] [address] May, [facility] [place] [address] [id number] [place] [phone] May, [facility] [place] [address] [id number] [place] [id number] May, [facility] [place] [address] [id number] [place] [id number] May, [facility] [place] [address] [id number] [place] [id number] May, [facility] [place] [address] [id number] [place] [id number] May, [facility] [place] [address] [id number] [place] [id number] May, [facility] [place] [address] [id number] [place] [id number] May, [facility] [place] [address] [id number] [place] 522203424 May, [facility] [place] [address] [id number] [place] 049125100 May, [facility] [place] [address] [id number] [place] 252336353 May, [facility] [place] [address] [id number] [place] 204234817 May, [facility] [place] [address] [id number] [place] [id number] May, [facility] [place] [address] [id number] [place] [id number] May, [facility] [place] [address] [id number] [place] [id number] May, Radicular low back pain M54.10 ; Other chronic pain G89.29 ; Fibromyalgia M79.7 ; Cervicalgia M54.2 ; Pain in thoracic spine M54.6 and Scoliosis of thoracolumbar spine, unspecified scoliosis type M41.[address] [id number], [place] [id number] May, [facility] [id number] [place] [id number] Apr, Muscle spasm M62.838 [address] [place] [address] [id number] Apr, [place] [id number] [place] [address] [id number] Apr, Fibromyalgia M79.7 ; Muscle spasm M62.838 ; Other chronic pain G89.29 ; Vision changes H53.9 ; Headache above the eye region R51 ; Major depressive disorder, single episode, unspecified F32.9 ; Neck pain M54.2 and Thyroid nodule E04.1 [address]00565100[place] 088258728 Apr, Other chronic pain G89.29 [address] [place] [address] [id number] Apr, Chronic tension-type headache, intractable G44.221 [address] [place] [address] [id number] Mar, Other chronic pain G89.29 ; Scoliosis of thoracolumbar spine, unspecified scoliosis type M41.9 ; Muscle spasm M62.838 ; Other chronic pain G89.29 ; Headache above the eye region R51 ; Hospital discharge follow-up Z09 ; Lumbar back pain with radiculopathy affecting right lower extremity M54.17 ; Lumbar back pain with radiculopathy affecting left lower extremity M54.17 and Myalgia M79.1 [address]00565100[place] 917443462 Mar, [place] [id number] [place] [address] [id number] 14 Mar, 2017 Other chronic pain G89.29 [facility] [id number] [place] [address] [id number] 14 Mar, 2017 Radicular low back pain M54.10 [facility] [id number] [place] [address] [id number] Feb, [place] [address] [id number] [place] [address] [id number] Feb, [facility] [id number] [place] [address] [id number] Feb, Muscle spasm M62.838 [address] [id number] [place] [address] [id number] Feb, Itching L29.9 and Acute bilateral back pain, unspecified back location M54.9 [address] [id number] [place] [address] [id number] Feb, History of pneumonia Z87.01 ; Cough R05 ; Radicular low back pain M54.10 ; Scoliosis of thoracolumbar spine, unspecified scoliosis type M41.9 ; Elevated liver enzymes R74.8 ; Influenza J11.1 ; Severe single current episode of major depressive disorder, without psychotic features F32.2 and Stressful life events affecting family and household Z63.79 [address] [id number] [place] [address] [id number] Jan, Muscle spasm M62.838 [place] [id number] [place] [address] [id number] Jan, Post-nasal drainage R09.82 ; Anxiety F41.9 and Cough R05 [place] [address] [id number] [place] [address] [id number] Jan, Severe episode of recurrent major depressive disorder, without psychotic features F33.2 [address] [place] [address] [id number] Jan, Muscle spasm M62.838 [address] [id number] [place] [address] [id number] Jan, Acute recurrent maxillary sinusitis J01.01 and Breast tenderness in female N64.4 [facility] [id number] [place] [id number] Nov, [facility] [id number] [place] [address] [id number] Nov, [facility] [id number] [place] [address] [id number] Nov, Radicular low back pain M54.10 and Muscle spasm M62.838 [facility] [id number] [place] [address] [id number] Nov, [place] [id number] [place] [address] [id number] Nov, Viral disease B34.9 ; Fever, unspecified fever cause R50.9 ; Other fatigue R53.83 and Other malaise R53.81 [facility] [id number] [place] [address] [id number] Nov, Thyroid nodule E04.1 [place] [id number] [place] [address] [id number] Nov, Severe episode of recurrent major depressive disorder, without psychotic features F33.2 [address] [place] [address] [id number] Nov, Acute nasopharyngitis J00 [address] [place] [address] [id number] Oct, Scoliosis of thoracolumbar spine, unspecified scoliosis type M41.9 ; Muscle spasm M62.838 ; Thyroid nodule E04.1 ; Pain in thoracic spine M54.6 ; Other chronic pain G89.29 ; Cervicalgia M54.2 ; Radicular low back pain M54.10 ; Severe episode of recurrent major depressive disorder, without psychotic features F33.2 and High risk medication use Z79.899 [facility] [address]00565100[place] 8[address]- [address] Oct, [facility] [address] [id number] [place] [id number] Sep, Scoliosis of thoracolumbar spine, unspecified scoliosis type M41.9 ; Muscle spasm M62.838 ; Thyroid nodule E04.1 ; Pain in thoracic spine M54.6 ; Other chronic pain G89.29 ; Cervicalgia M54.2 ; Controlled substance agreement signed Z79.899 ; Vaginal yeast infection B37.3 and Radicular low back pain M54.10 [facility] [id number] [place] [address] [id number] Sep, Scoliosis of thoracolumbar spine, unspecified scoliosis type M41.9 and Muscle spasm M62.838 [place] [id number] [place] [address] [id number] Sep, Severe episode of recurrent major depressive disorder, without psychotic features F33.[address] [id number] Aug, Severe episode of recurrent major depressive disorder, without psychotic features F33.2 ; Thyroid nodule E04.1 ; Constipation, chronic K59.09 and Non morbid obesity due to excess calories E66.09 [place] [id number] [place] [address] [id number] Aug, Non morbid obesity due to excess calories E66.09 and Thyroid nodule E04.[address] [id number] Aug, [address] [id number] Jul, Severe episode of recurrent major depressive disorder, without psychotic features F33.2 ; Thyroid nodule E04.1 ; Constipation, chronic K59.09 and Non morbid obesity due to excess calories E66.09 [place] [id number] [place] [address] [id number] June, Sore throat J02.9 and Major depressive disorder, single episode, unspecified F32.9 [facility] [address] [address]- [address] May, [facility] [address] [address]- [address] May, [facility] [address] [address]- [address] 14 Mar, 2013 [facility] [address] [id number] [place] [address]- 4786 14 Mar, 2013 [facility] [address] [id number] [place] [address]- 2196 06 Mar, 2013 [facility] [address] [facility] [id number] [place] [address]- 7[address] Mar, [facility] [address] [id number] [place] [address]- 9658 Jan, [facility] [address] [id number] [place] [address]- 9314 Jan, [facility] [address] [id number] [place] [address]- 7541 Jan, [facility] [address] [facility] [id number] [place] [address]- 8774 Jan, [facility] [address] [id number] [place] [address]- 7200 Jan, [facility] [address] [facility] [id number] [place] [address]- [address] Jan, [facility] [address] [facility] [id number] [place] [address]- 9211 Jan, [facility] [address] [facility] [id number] [place] [address]- 7642 Jan, [facility] [place] [facility] [address] [id number] [place] [address]- 0810 Dec, [facility] [place] [facility] [address] [id number] [place] [address]- 1858 Dec, [facility] [place] [facility] [address] [facility] [id number] [place] [address]- 5895 Apr, [facility] [place] [facility] [address] [facility] [id number] [place] [address]- 8757 Jan, [facility] [place] [facility] [address] [id number] [place] [address]- 5520 Jan, [facility] [place] [facility] [address] [id number] [place] [address]- 1235 Dec, [facility] [place] [facility] [address] [id number] [place] [address]- 8962 Dec, [facility] [place] [facility] [address] [facility] [id number] [place]- [address] Nov, [facility] [place] [facility] [address] [id number] [place] [address]- 0239 Nov, [facility] [place] [facility] [address] [facility] [id number] [place] [address]- 0339 Sep, [facility] [place] [facility] [address] [facility] [id number] [place] [address]- 7432 Sep, [facility] [place] [address] [facility] [id number] [place] [id number] Sep, [facility] [place] [address] [facility] [id number] [place] [id number] Sep, [facility] [place] [facility] [address] [facility] [id number] [place] [address]- 1723 Sep, [facility] [place] [facility] [address] [facility] [id number], [place] [address]- 1745 Sep, [facility] [place] [address] [facility] [id number] [place] [id number] Aug, [facility] [place] [facility] [address] [facility] [id number], [place] [address]- 1112 Aug, [facility] [place] [facility] [address] [facility] [id number] [place] [address] Aug, [facility] [place] [facility] [address] [facility] [id number] [place] [address] Aug, [facility] [address] [facility] [id number] [place] [id number] Jul, [facility] [place] [facility] [address] [id number] [place] [address] 28 Jul, 2011 [facility] [place] [facility] [address] [id number] [place] [address] Jul, [facility] [place] [facility] [address] [id number] [place] [address] Jul, [facility] [place] [facility] [address] [facility] [id number] [place] [address] May, [facility] [place] [facility] [address] [id number] [place] [address] Feb, [facility] [place] [facility] [address] [facility] [id number] [place] [id number], [place] [address] Jan, [facility] [place] [facility] [address] [facility] [id number] [place] [address] Jan, [facility] [place] [facility] [address] [facility] [id number] [place] [address] Dec, [facility] [place] [facility] [address] [facility] [id number], [place] [address] Dec, [facility] [place] [facility] [address] [facility] [id number] [place] [address] Dec, [facility] [place] [facility] [address] [facility] [id number], [place] [address] Nov, [facility] [place] [facility] [address] [facility] [id number] [place] [address] Nov, [facility] [place] [facility] [address] [facility] [id number], [place] [address] Sep, [facility] [place] [facility] [address] [facility] [id number], [place] [address] Jul, [facility] [place] [facility] [address] [facility] [id number], [place] [address] Mar, [facility] [place] [facility] [address] [facility] [id number], [place] [address] Nov, [facility] [address] [facility] [id number] [place] [address] Nov, IMMUNIZATIONS No Known Immunizations SOCIAL HISTORY Never Assessed REASON FOR VISIT Monday Email PLAN OF CARE VITAL SIGNS MEDICATIONS Unknown Medications RESULTS No Results PROCEDURES No Known procedures INSTRUCTIONS MEDICATIONS ADMINISTERED No Known Medications MEDICAL (GENERAL) HISTORY Type Description Date Medical History Fibromyalgia Medical History Chronic Consipation Medical History 08/16/16 [facility] general surgery center, Dr. Jimenez, hemorrhage [...] Medical History MRI- Brain 05/29/2017 Medical History [place] Spotted Tick Fever Medical History Ebstein Feng Virus Surgical History hysterectomy, total with unilateral salpingo-oophorectomy ( USO) Surgical History cholecystectomy Surgical History tonsillectomy and adenoidectomy Surgical History hemorrhoidectomy Surgical History EGD Surgical History colonoscopy 08/25/16 Hospitalization History fever, HTN, abnormal head [facility] 05/28/17
--- OUTSIDE RECORDS SUMMARY | 2017-11-06 12:26 | XMS REPORT ---
Author Author MICHAEL CORREIA Organization [facility] Address [address] [place] [address] Care Team Providers Care Blending Line Attendant Name Role Phone MICHAEL CORREIA Unavailable PROBLEMS Type Condition ICD9-CM Code HRN00-CU Code Onset Dates Condition Status SNOMED Code Problem Major depressive disorder, single episode, unspecified F32.9 Active 09625274 Problem Thyroid nodule E04.1 Active 80228147 Problem Severe single current episode of major depressive disorder, without psychotic features F32.2 Active 30254347 Problem Severe episode of recurrent major depressive disorder, without psychotic features F33.2 Active 901094742699 Problem Chronic tension-type headache, intractable G44.221 Active 449746528 Problem Constipation, chronic K59.09 Active 634220411 Problem Essential hypertension I10 Active 53320403 Problem Non morbid obesity due to excess calories E66.09 Active 064044077 Problem 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 Active 837087972 Problem RMSF (Roberdel spotted 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 Active 120991946 Problem Abnormal brain MRI R90.89 Active 220279260 Problem Abnormal mammogram of left breast R92.8 Active 638816538 Problem Diarrhea, unspecified type R19.7 Active 06651501 Problem Controlled substance agreement signed Z79.899 Active 214808671 Problem Other chronic pain G89.29 Active 448112404 Problem Scoliosis of thoracolumbar spine, unspecified scoliosis type M41.9 Active 206007274 Problem 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 Active 086923965 Problem Recurrent fever A68.9 Active 935909898 Problem Epigastric abdominal pain R10.13 Active 01989130 Problem Abnormal mammogram R92.8 Active 248669894 Problem Pain in thoracic spine M54.6 Active 619150530974160 Problem Cervicalgia M54.2 Active 2565166511516 Problem Radicular low back pain M54.10 Active 32863042 Problem Muscle spasm M62.838 Active 45708780 Problem Other chronic pain G89.29 Active 547231750 Problem Fibromyalgia M79.7 Active 756981043 Problem Anxiety F41.9 Active 178937734 Problem Acute bilateral low back pain with sciatica, sciatica laterality unspecified M54.40 Active 999614013 ALLERGIES No Information ENCOUNTERS Encounter Location Date Diagnosis [facility] [address] [id number] [id number] Sep, [facility] [address] [address] Sep, [facility] [address] [facility] [address] [id number] [address] Sep, [facility] [address] [id number] [address] Sep, Fibromyalgia M79.7 [facility] [address] [id number][place] [address] Sep, Epigastric abdominal pain R10.13 and Diarrhea, unspecified type R19.7 [facility] [id number] [address] Sep, Abnormal mammogram of left breast R92.8 [facility] [id number], [place] [id number] Sep, Abnormal mammogram R92.8 [facility] [id number], [place] [address] Sep, [facility] [id number] [place] [address] [id number] Aug, Abnormal mammogram R92.8 [facility] [address] [id number][place] [address] Aug, [facility] [id number] [place] [address] [id number] Aug, [facility] [id number], [place] [address] Aug, Screening breast examination Z12.31 and At risk for bone density loss Z91.89 [facility] [place] [address] [id number], [place] [address] Aug, [facility] [place] [address] [id number] [place] [address] Aug, [facility] [place] [address] [id number] [place] [address] Aug, Other chronic pain G89.29 [facility] [place] [address] [id number], [place] [address] Aug, [facility] [place] [address] [id number], [place] 355830497 Aug, [facility] [place] [address] [id number] [place] [address] Aug, [facility] [place] [address] [id number] [place] [address] Aug, Fibromyalgia M79.7 ; Anxiety F41.9 ; High risk medication use Z79.899 ; Other chronic pain G89.29 ; Recurrent fever A68.9 ; 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 and RMSF (Roberdel spotted 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 [facility] [place] [address] [id number], [place] [id number] Jul, [facility] [place] [address] [id number], [place] 5389978[address] Jul, [facility] [place] [address] [id number], [place] 669[address]94[place] Jul, Muscle spasm M62.838 and Anxiety F41.9 [facility] [place] [address] [id number], [place] [id number] Jul, [facility] [place] [address] [id number], [place] 000338432 Jul, [facility] [place] [address] [id number], [place] [address] Jul, [facility] [address] [id number], [place] 618[address]89[address] Jul, [facility] [place] [address] [id number], [place] 806288622 Jul, [facility] [place] [address] [id number], [place] 705505316 Jul, [facility] [place] [address] [id number] [place] [address]996[address] Jul, [facility] [place] [address] [id number] [place] 090814792 Jul, [facility] [place] [address] [id number] [place] [id number] Jul, [facility] [place] [address] [id number] [place] [id number] Jul, [facility] [place] [address] [id number] [place] [address] Jul, Radicular low back pain M54.10 ; Other chronic pain G89.29 and Fibromyalgia M79.7 [facility] [place] [address] [id number] [place] 9[address] Jul, [facility] [place] [address] [id number] [place] [id number] Jul, [facility] [place] [address] [id number], [place] 114716402 Jul, [facility] [place] [address] [id number] [place] 140796737 June, [facility] [place] [address] [id number], [place] [address] June, [facility] [place] [address] [id number] [place] 10[address] June, History of Ted-Efng 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 ; Recurrent fever A68.9 ; Other chronic pain G89.29 ; Radicular low back pain M54.10 ; Chronic tension- type headache, intractable G44.221 ; Essential hypertension I10 ; RMSF (Roberdel spotted 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 and Abnormal brain MRI R90.89 [facility] [place] [address] [id number], [place] 1497[address] June, [facility] [place] [address] [id number] [address] June, 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 and RMSF (Roberdel spotted 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 [facility] [place] [address] [id number] [place] [id number] June, [facility] [place] [address] [id number] [place] 217931881 June, [facility] [place] [id number] [place] [address] [id number] June, RMSF (Roberdel spotted 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 and 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 [facility] [place] [id number] [place] [address] [id number] June, [facility] [place] [address] [id number] [place] [address] [id number] June, [facility] [place] [id number] [place] [address] [id number] June, [facility] [id number] [place] [address] June, [facility] [place] [id number] [place] [address] [id number] June, [facility] [place] [id number] [place] [address] June, Radicular low back pain M54.10 and Scoliosis of thoracolumbar spine, unspecified scoliosis type M41.9 [facility] [place] [address] [id number], [place] [id number] June, [facility] [place] [id number], [place] [id number] June, [facility] [place] [address] [id number], [place] 120344196 June, [facility] [place] [address] [id number], [place] [id number] June, [facility] [place] [id number] [place] [address] [id number] June, RMSF (Roberdel spotted 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 [facility] [place] [address] [id number], [place] 724955823 June, [facility] [place] [address] [id number], [place] 379882241 June, Muscle spasm M62.838 [facility] [id number], [place] 546094064 June, [facility] [id number] [place] [address] [id number] May, [facility] [id number], [place] [id number] May, [facility] [id number] [place] [address] [id number] May, [facility] [address] [facility] [address] [id number], [place] [id number] May, RMSF (Roberdel spotted 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 [facility] [address] [facility] [address] [id number], [place] [id number] May, Essential hypertension I10 [facility] [address], [place] [address] May, [facility] [id number] [place] [address] [id number] May, Other chronic pain G89.29 [facility] [id number] [place] [address] [id number] May, [facility] [id number] [place] [address] [id number] May, [facility] [id number] [place] [address] [id number] May, [facility] [id number] [place] [address] [id number] May, [facility] [id number], [place] 029285704 May, RMSF (Roberdel spotted 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 ; Nausea R11.0 ; [...] depressive disorder, single episode, unspecified F32.9 [facility] [address] [id number] [place] [address] May, Roberdel spotted fever A77.0 [facility] [place] [address] [id number] [place] [id number] May, [facility] [place] [address] [id number] [place] [id number] May, [facility] [address] [id number] [place] [address]- 139[address] May, [facility] [place] [address] [id number] [place] 601006058 May, [facility] [place] [address] [id number] [place] 49560[address] May, [facility] [place] [address] [id number] [place] 175996563 May, [facility] [place] [address] [id number] [place] 749473250 May, [facility] [place] [address] [id number] [place] [id number] May, [facility] [place] [address] [id number] [place] 769251517 May, [facility] [place] [address] [id number] [place] [id number] May, [facility] [place] [address] [id number] [place] [id number] May, [facility] [place] [address] [id number] [place] [id number] May, [facility] [place] [address] [id number] [place] 314886713 May, [facility] [place] [address] [id number] [place] 364064468 May, [facility] [place] [address] [id number] [place] 114685263 May, [facility] [place] [address] [id number] [place] 298314808 May, [facility] [place] [address] [id number], [place] 577953453 May, Radicular low back pain M54.10 ; Other chronic pain G89.29 ; Fibromyalgia M79.7 ; Cervicalgia M54.2 ; Pain in thoracic spine M54.6 and Scoliosis of thoracolumbar spine, unspecified scoliosis type M41.[address] [id number][place] [id number] May, [facility] [id number], [place] 663151525 Apr, Muscle spasm M62.838 [address] [place] [address] [id number] Apr, [place] [id number] [place] [address] [id number] Apr, Fibromyalgia M79.7 ; Muscle spasm M62.838 ; Other chronic pain G89.29 ; Vision changes H53.9 ; Headache above the eye region R51 ; Major depressive disorder, single episode, unspecified F32.9 ; Neck pain M54.2 and Thyroid nodule E04.1 [address]65[address], [place] 337162446 Apr, Other chronic pain G89.29 [address] [place] [address] [id number] Apr, Chronic tension-type headache, intractable G44.221 [address] [place] [address] [id number] Mar, Other chronic pain G89.29 ; Scoliosis of thoracolumbar spine, unspecified scoliosis type M41.9 ; Muscle spasm M62.838 ; Other chronic pain G89.29 ; Headache above the eye region R51 ; Hospital discharge follow-up Z09 ; Lumbar back pain with radiculopathy affecting right lower extremity M54.17 ; Lumbar back pain with radiculopathy affecting left lower extremity M54.17 and Myalgia M79.1 [address]00565100[place], [place] 1989[address]606 Mar, [id number] [place] [address] [id number] 14 Mar, 2017 Other chronic pain G89.29 [facility] [id number] [place] [address] [id number] 14 Mar, 2017 Radicular low back pain M54.10 [facility] [id number] [place] [address] [id number] Feb, [place] [id number] [place] [address] [id number] Feb, [facility] [id number] [place] [address] [id number] Feb, Muscle spasm M62.838 [place] [id number] [place] [address] [id number] Feb, Itching L29.9 and Acute bilateral back pain, unspecified back location M54.9 [place] [id number] [place] [address] [id number] Feb, History of pneumonia Z87.01 ; Cough R05 ; Radicular low back pain M54.10 ; Scoliosis of thoracolumbar spine, unspecified scoliosis type M41.9 ; Elevated liver enzymes R74.8 ; Influenza J11.1 ; Severe single current episode of major depressive disorder, without psychotic features F32.2 and Stressful life events affecting family and household Z63.79 [place] [id number] [place] [address] [id number] Jan, Muscle spasm M62.838 [place] [id number] [place] [address] [id number] Jan, Post-nasal drainage R09.82 ; Anxiety F41.9 and Cough R05 [place] [id number] [place] [address] [id number] Jan, Severe episode of recurrent major depressive disorder, without psychotic features F33.2 [address] [place] [address] [id number] Jan, Muscle spasm M62.838 [place] [id number] [place] [address] [id number] Jan, Acute recurrent maxillary sinusitis J01.01 and Breast tenderness in female N64.4 [facility] [id number], [place] 038463639 Nov, [facility] [id number] [place] [address] [id number] Nov, [facility] [id number] [place] [address] [id number] Nov, Radicular low back pain M54.10 and Muscle spasm M62.838 [facility] [id number] [place] [address] [id number] Nov, [place] [id number] [place] [address] [id number] Nov, Viral disease B34.9 ; Fever, unspecified fever cause R50.9 ; Other fatigue R53.83 and Other malaise R53.81 [facility] [id number] [place] [address] [id number] Nov, Thyroid nodule E04.1 [place] [id number] [place] [address] [id number] Nov, Severe episode of recurrent major depressive disorder, without psychotic features F33.2 [address] [place] [address] [id number] Nov, Acute nasopharyngitis J00 [address] [place] [address] [id number] Oct, Scoliosis of thoracolumbar spine, unspecified scoliosis type M41.9 ; Muscle spasm M62.838 ; Thyroid nodule E04.1 ; Pain in thoracic spine M54.6 ; Other chronic pain G89.29 ; Cervicalgia M54.2 ; Radicular low back pain M54.10 ; Severe episode of recurrent major depressive disorder, without psychotic features F33.2 and High risk medication use Z79.899 [facility] [address]00565100[place], [place] 10245046- [address] Oct, [facility] [address] [id number], [place] 646190586 Sep, Scoliosis of thoracolumbar spine, unspecified scoliosis type M41.9 ; Muscle spasm M62.838 ; Thyroid nodule E04.1 ; Pain in thoracic spine M54.6 ; Other chronic pain G89.29 ; Cervicalgia M54.2 ; Controlled substance agreement signed Z79.899 ; Vaginal yeast infection B37.3 and Radicular low back pain M54.10 [facility] [id number] [place] [address] [id number] Sep, Scoliosis of thoracolumbar spine, unspecified scoliosis type M41.9 and Muscle spasm M62.838 [id number] [place] [address] [id number] Sep, Severe episode of recurrent major depressive disorder, without psychotic features F33.[address] [id number] Aug, Severe episode of recurrent major depressive disorder, without psychotic features F33.2 ; Thyroid nodule E04.1 ; Constipation, chronic K59.09 and Non morbid obesity due to excess calories E66.09 [address] [id number] [place] [address] [id number] Aug, Non morbid obesity due to excess calories E66.09 and Thyroid nodule E04.[address] [id number] Aug, [address] [id number] Jul, Severe episode of recurrent major depressive disorder, without psychotic features F33.2 ; Thyroid nodule E04.1 ; Constipation, chronic K59.09 and Non morbid obesity due to excess calories E66.09 [address] [id number] [place] [address] [id number] June, Sore throat J02.9 and Major depressive disorder, single episode, unspecified F32.9 [facility] [address] [address] May, [facility] [address] [address]- 1221 May, [facility] [address] [address]87- 8505 14 Mar, 2013 [facility] [address] [id number] [place] [address]- 6936 14 Mar, 2013 [facility] [address] [id number] [place] [address]- 2076 06 Mar, 2013 [facility] [address] [facility] [id number] [place] [address]- 4586 Mar, [facility] [address] [id number] [place] [address]- 8022 Jan, [facility] [address] [id number] [place] [address]- 7452 Jan, [facility] [address] [id number] [place] [address]- 6156 Jan, [facility] [address] [facility] [id number] [place] [address]- 3361 Jan, [facility] [address] [id number] [place] [address]- 0706 Jan, [facility] [address] [facility] [id number] [place] [address]- 6946 Jan, [facility] [address] [facility] [id number] [place] [address]- 1182 Jan, [facility] [address] [facility] [id number] [place] [address]- 7585 Jan, [facility] [place] [facility] [address] [id number] [place] [address]- 9457 Dec, [facility] [place] [facility] [address] [id number] [place] [address]- 8701 Dec, [facility] [place] [facility] [address] [facility] [id number] [place] [address]- 2195 Apr, [facility] [place] [facility] [address] [facility] [id number] [place] [address]- 2059 Jan, [facility] [place] [facility] [address] [id number] [place] [address]- 1379 Jan, [facility] [place] [facility] [address] [id number] [place] [address]- 4770 Dec, [facility] [place] [facility] [address] [id number] [place] [address]- 5983 Dec, [facility] [place] [facility] [address] [facility] [id number] [place]- 8[address] Nov, [facility] [place] [facility] [address] [id number] [place] [address]- 6422 Nov, [facility] [place] [facility] [address] [facility] [id number] [place] [address]- 6280 Sep, [facility] [place] [facility] [address] [facility] [id number] [place] [address]- 1658 Sep, [facility] [place] [address] [facility] [id number], [place] [id number] Sep, [facility] [place] [address] [facility] [id number], [place] [id number] Sep, [facility] [place] [facility] [address] [facility] [id number] [place] [address]- 0257 Sep, [facility] [place] [facility] [address] [facility] [id number], [place] [address]- 8587 Sep, [facility] [place] [address] [facility] [id number][place] [id number] Aug, [facility] [place] [facility] [address] [facility] [id number], [place] [address] Aug, [facility] [place] [facility] [address] [facility] [id number] [place] [address] Aug, [facility] [place] [facility] [address] [facility] [id number] [place] [address] Aug, [facility] [address] [facility] [id number][place] [id number] Jul, [facility] [place] [facility] [address] [id number] [place] [address] 28 Jul, 2011 [facility] [place] [facility] [address] [id number] [place] [address] Jul, [facility] [place] [facility] [address] [id number] [place] [address] Jul, [facility] [place] [facility] [address] [facility] [id number] [place] [address] May, [facility] [place] [facility] [address] [id number] [place] [address] Feb, [facility] [place] [facility] [address] [facility] [id number] [place] [address], [place] [address] Jan, [facility] [place] [facility] [address] [facility] [id number] [place] [address] Jan, [facility] [place] [facility] [address] [facility] [id number] [place] [address] Dec, [facility] [place] [facility] [address] [facility] [id number], [place] [address] Dec, [facility] [place] [facility] [address] [facility] [id number] [place] [address] Dec, [facility] [place] [facility] [address] [facility] [id number], [place] [address] Nov, [facility] [place] [facility] [address] [facility] [id number] [place] [address] Nov, [facility] [place] [facility] [address] [facility] [id number], [place] [address] Sep, [facility] [place] [facility] [address] [facility] [id number], [place] [address] Jul, [facility] [place] [facility] [address] [facility] [id number], [place] [address] Mar, [facility] [place] [facility] [address] [facility] [id number], [place] [address] Nov, [facility] [address] [facility] [id number] [place] [address] Nov, IMMUNIZATIONS No Known Immunizations SOCIAL HISTORY Never Assessed REASON FOR VISIT Dr Parson PLAN OF CARE VITAL SIGNS MEDICATIONS Unknown Medications RESULTS No Results PROCEDURES No Known procedures INSTRUCTIONS MEDICATIONS ADMINISTERED No Known Medications MEDICAL (GENERAL) HISTORY Type Description Date Medical History Fibromyalgia Medical History Chronic Consipation Medical History 08/16/16 [facility] general surgery center, Dr. Jimenez, [...] Medical History MRI- Brain 05/29/2017 Medical History [place] Spotted Tick Fever Medical History [place] [facility] Surgical History hysterectomy, total with unilateral salpingo-oophorectomy ( USO) Surgical History cholecystectomy Surgical History tonsillectomy and adenoidectomy Surgical History hemorrhoidectomy Surgical History EGD Surgical History colonoscopy 08/25/16 Hospitalization History fever, HTN, abnormal head [facility] 05/28/17
--- OUTSIDE RECORDS SUMMARY | 2017-11-06 12:26 | XMS REPORT ---
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 Name Role Phone MICHAEL CORREIA Unavailable PROBLEMS Type Condition ICD9-CM Code LLX92-MR Code Onset Dates Condition Status SNOMED Code Problem Major depressive disorder, single episode, unspecified F32.9 Active 64150302 Problem Thyroid nodule E04.1 Active 17974908 Problem Severe single current episode of major depressive disorder, without psychotic features F32.2 Active 61090182 Problem Severe episode of recurrent major depressive disorder, without psychotic features F33.2 Active 363618792293 Problem Chronic tension-type headache, intractable G44.221 Active 049012242 Problem Constipation, chronic K59.09 Active 247783603 Problem Essential hypertension I10 Active 14117047 Problem Non morbid obesity due to excess calories E66.09 Active 591768439 Problem 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 Active 284044980 Problem RMSF ([place] spotted 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 Active 404596875 Problem Abnormal brain MRI R90.89 Active 369540473 Problem Abnormal mammogram of left breast R92.8 Active 116859715 Problem Diarrhea, unspecified type R19.7 Active 46048706 Problem Controlled substance agreement signed Z79.899 Active 877810042 Problem Other chronic pain G89.29 Active 610795190 Problem Scoliosis of thoracolumbar spine, unspecified scoliosis type M41.9 Active 138600295 Problem 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 Active 704941248 Problem Recurrent fever A68.9 Active 497289312 Problem Epigastric abdominal pain R10.13 Active 24736272 Problem Abnormal mammogram R92.8 Active 462421864 Problem Pain in thoracic spine M54.6 Active 274579040822323 Problem Cervicalgia M54.2 Active 5916756736406 Problem Radicular low back pain M54.10 Active 54972099 Problem Muscle spasm M62.838 Active 88674631 Problem Other chronic pain G89.29 Active 661735840 Problem Fibromyalgia M79.7 Active 266872496 Problem Anxiety F41.9 Active 917830675 Problem Acute bilateral low back pain with sciatica, sciatica laterality unspecified M54.40 Active [id number] ALLERGIES No Information ENCOUNTERS Encounter Location Date Diagnosis [facility] [id number] [id number] Sep, [facility] [address] [address] Sep, [facility] [address] [facility] [address] [id number][place] [id number] Sep, [facility] [address] [id number] [address] Sep, Fibromyalgia M79.7 [facility] [address] [id number][place] [id number] Sep, Epigastric abdominal pain R10.13 and Diarrhea, unspecified type R19.7 [facility] [id number] [place] [id number] Sep, Abnormal mammogram of left breast R92.8 [facility] [id number] [place] [address] Sep, Abnormal mammogram R92.8 [facility] [id number] [place] [id number] Sep, [facility] [id number] [place] [address] [id number] Aug, Abnormal mammogram R92.8 [facility] [address] [id number] [place] [id number] Aug, [facility] [address] [id number] [place] [address] [id number] Aug, [facility] [id number] [place] [address] Aug, Screening breast examination Z12.31 and At risk for bone density loss Z91.89 [facility] [place] [address] [id number] [place] [id number] Aug, [facility] [place] [address] [id number] [place] [id number] Aug, [facility] [place] [address] [id number] [place] [address] Aug, Other chronic pain G89.29 [facility] [place] [address] [id number] [place] [id number] Aug, [facility] [place] [address] [id number] [place] 988[place] Aug, [facility] [place] [address] [id number] [place] [id number] Aug, [facility] [place] [address] [id number] [place] [address] Aug, Fibromyalgia M79.7 ; Anxiety F41.9 ; High risk medication use Z79.899 ; Other chronic pain G89.29 ; Recurrent fever A68.9 ; 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 and RMSF ([place] spotted 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 [facility] [place] [address] [id number] [place] [id number] Jul, [facility] [place] [address] [id number] [place] [address] Jul, [facility] [place] [address] [id number] [place] 160356367 Jul, Muscle spasm M62.838 and Anxiety F41.9 [facility] [place] [address] [id number] [place] [id number] Jul, [facility] [place] [address] [id number] [place] [id number] Jul, [facility] [place] [address] [id number] [place] 79940[address] Jul, [facility] [address] [id number], [place] [address] Jul, [facility] [place] [address] [id number] [place] 68639[address]59 Jul, [facility] [place] [address] [id number] [place] [id number] Jul, [facility] [place] [address] [id number] [place] [address] Jul, [facility] [place] [address] [id number] [place] [address]125[address] Jul, [facility] [place] [address] [id number] [place] 8004[address] Jul, [facility] [place] [address] [id number] [place] 223295647 Jul, [facility] [place] [address] [id number] [place] 2566[address] Jul, Radicular low back pain M54.10 ; Other chronic pain G89.29 and Fibromyalgia M79.7 [facility] [place] [address] [id number] [place] [id number] Jul, [facility] [place] [address] [id number] [place] [address]65[address] Jul, [facility] [place] [address] [id number] [place] [id number] Jul, [facility] [place] [address] [id number] [place] [address] June, [facility] [place] [address] [id number] [place] 38095[address]63 June, [facility] [place] [address] [id number] [place] 722603721 June, 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 ; Recurrent fever A68.9 ; Other chronic pain G89.29 ; Radicular low back pain M54.10 ; Chronic tension- type headache, intractable G44.221 ; Essential hypertension I10 ; RMSF (Westminster spotted 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 and Abnormal brain MRI R90.89 [facility] [place] [address] [id number] [place] [id number] June, [facility] [place] [address] [id number] [address] June, 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 and RMSF (Westminster spotted 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 [facility] [place] [address] [id number] [place] [id number] June, [facility] [place] [address] [id number] [place] [id number] June, [facility] [place] [id number] [place] [address] [id number] June, RMSF (Westminster spotted 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 and 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 [facility] [place] [address] [id number] [place] [address] [id number] June, [facility] [place] [address] [id number] [place] [address] [id number] June, [facility] [place] [id number] [place] [address] [id number] June, [facility] [id number] [place] [address] June, [facility] [id number] [place] [address] [id number] June, [facility] [id number] [place] [address] June, Radicular low back pain M54.10 and Scoliosis of thoracolumbar spine, unspecified scoliosis type M41.9 [facility] [place] [address] [id number] [place] [id number] June, [facility] [place] [id number] [place] [id number] June, [facility] [place] [address] [id number] [place] [id number] June, [facility] [place] [address] [id number] [place] [id number] June, [facility] [place] [id number] [place] [address] [id number] June, RMSF (Westminster spotted 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 [facility] [place] [address] [id number] [place] [id number] June, [facility] [place] [address] [id number] [place] [id number] June, Muscle spasm M62.838 [facility] [id number] [place] 755532544 June, [facility] [id number] [place] [address] [id number] May, [facility] [id number] [place] [id number] May, [facility] [id number] [place] [address] [id number] May, [facility] [address] [facility] [address] [id number], [place] [id number] May, RMSF (Westminster spotted 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 [facility] [address] [facility] [address] [id number][place] [id number] May, Essential hypertension I10 [facility] [address]00565100[place], [place] [address] May, [facility] [id number] [place] [address] [id number] May, Other chronic pain G89.29 [facility] [id number] [place] [address] [id number] May, [facility] [id number] [place] [address] [id number] May, [facility] [id number] [place] [address] [id number] May, [facility] [id number] [place] [address] [id number] May, [facility] [id number] [place] [id number] May, RMSF (Westminster spotted 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 ; Nausea R11.0 ; [...] depressive disorder, single episode, unspecified F32.9 [facility] [address] [id number] [place] [address] May, [place] spotted fever A77.0 [facility] [place] [address] [id number] [place] [id number] May, [facility] [place] [address] [id number] [place] [id number] May, [facility] [address] [id number] [place] [address]- [address] May, [facility] [place] [address] [id number] [place] [id number] May, [facility] [place] [address] [id number] [place] [id number] May, [facility] [place] [address] [id number] [place] [id number] May, [facility] [place] [address] [id number] [place] 934776841 May, [facility] [place] [address] [id number] [place] [id number] May, [facility] [place] [address] [id number] [place] [id number] May, [facility] [place] [address] [id number] [place] [id number] May, [facility] [place] [address] [id number] [place] 388684419 May, [facility] [place] [address] [id number] [place] [id number] May, [facility] [place] [address] [id number] [place] [id number] May, [facility] [place] [address] [id number] [place] [id number] May, [facility] [place] [address] [id number] [place] [id number] May, [facility] [place] [address] [id number] [place] [id number] May, [facility] [place] [address] [id number] [place] [id number] May, Radicular low back pain M54.10 ; Other chronic pain G89.29 ; Fibromyalgia M79.7 ; Cervicalgia M54.2 ; Pain in thoracic spine M54.6 and Scoliosis of thoracolumbar spine, unspecified scoliosis type M41.[address] [id number][place] [id number] May, [facility] [id number] [place] [id number] Apr, Muscle spasm M62.838 [id number] [place] [address] [id number] Apr, [address] [id number] [place] [address] [id number] Apr, Fibromyalgia M79.7 ; Muscle spasm M62.838 ; Other chronic pain G89.29 ; Vision changes H53.9 ; Headache above the eye region R51 ; Major depressive disorder, single episode, unspecified F32.9 ; Neck pain M54.2 and Thyroid nodule E04.1 [address]00565100[place] [id number] Apr, Other chronic pain G89.29 [address] [place] [address] [id number] Apr, Chronic tension-type headache, intractable G44.221 [address] [place] [address] [id number] Mar, Other chronic pain G89.29 ; Scoliosis of thoracolumbar spine, unspecified scoliosis type M41.9 ; Muscle spasm M62.838 ; Other chronic pain G89.29 ; Headache above the eye region R51 ; Hospital discharge follow-up Z09 ; Lumbar back pain with radiculopathy affecting right lower extremity M54.17 ; Lumbar back pain with radiculopathy affecting left lower extremity M54.17 and Myalgia M79.1 [address]00565100[place] [id number] Mar, [id number] [place] [address] [id number] 14 Mar, 2017 Other chronic pain G89.29 [facility] [id number] [place] [address] [id number] 14 Mar, 2017 Radicular low back pain M54.10 [facility] [id number] [place] [address] [id number] Feb, [place] [id number] [place] [address] [id number] Feb, [facility] [id number] [place] [address] [id number] Feb, Muscle spasm M62.838 [place] [id number] [place] [address] [id number] Feb, Itching L29.9 and Acute bilateral back pain, unspecified back location M54.9 [place] [id number] [place] [address] [id number] Feb, History of pneumonia Z87.01 ; Cough R05 ; Radicular low back pain M54.10 ; Scoliosis of thoracolumbar spine, unspecified scoliosis type M41.9 ; Elevated liver enzymes R74.8 ; Influenza J11.1 ; Severe single current episode of major depressive disorder, without psychotic features F32.2 and Stressful life events affecting family and household Z63.79 [place] [id number] [place] [address] [id number] Jan, Muscle spasm M62.838 [place] [id number] [place] [address] [id number] Jan, Post-nasal drainage R09.82 ; Anxiety F41.9 and Cough R05 [place] [id number] [place] [address] [id number] Jan, Severe episode of recurrent major depressive disorder, without psychotic features F33.2 [address] [place] [address] [id number] Jan, Muscle spasm M62.838 [place] [id number] [place] [address] [id number] Jan, Acute recurrent maxillary sinusitis J01.01 and Breast tenderness in female N64.4 [facility] [id number] [place] [id number] Nov, [facility] [id number] [place] [address] [id number] Nov, [facility] [id number] [place] [address] [id number] Nov, Radicular low back pain M54.10 and Muscle spasm M62.838 [facility] [id number] [place] [address] [id number] Nov, [place] [id number] [place] [address] [id number] Nov, Viral disease B34.9 ; Fever, unspecified fever cause R50.9 ; Other fatigue R53.83 and Other malaise R53.81 [facility] [id number] [place] [address] [id number] Nov, Thyroid nodule E04.1 [place] [id number] [place] [address] [id number] Nov, Severe episode of recurrent major depressive disorder, without psychotic features F33.2 [address] [place] [address] [id number] Nov, Acute nasopharyngitis J00 [address] [place] [address] [id number] Oct, Scoliosis of thoracolumbar spine, unspecified scoliosis type M41.9 ; Muscle spasm M62.838 ; Thyroid nodule E04.1 ; Pain in thoracic spine M54.6 ; Other chronic pain G89.29 ; Cervicalgia M54.2 ; Radicular low back pain M54.10 ; Severe episode of recurrent major depressive disorder, without psychotic features F33.2 and High risk medication use Z79.899 [facility] [address]00565100[place], [place] 38284096- [address] Oct, [facility] [address] [id number] [place] [id number] Sep, Scoliosis of thoracolumbar spine, unspecified scoliosis type M41.9 ; Muscle spasm M62.838 ; Thyroid nodule E04.1 ; Pain in thoracic spine M54.6 ; Other chronic pain G89.29 ; Cervicalgia M54.2 ; Controlled substance agreement signed Z79.899 ; Vaginal yeast infection B37.3 and Radicular low back pain M54.10 [facility] [id number] [place] [address] [id number] Sep, Scoliosis of thoracolumbar spine, unspecified scoliosis type M41.9 and Muscle spasm M62.838 [id number] [place] [address] [id number] Sep, Severe episode of recurrent major depressive disorder, without psychotic features F33.[address] [id number] Aug, Severe episode of recurrent major depressive disorder, without psychotic features F33.2 ; Thyroid nodule E04.1 ; Constipation, chronic K59.09 and Non morbid obesity due to excess calories E66.09 [id number] [place] [address] [id number] Aug, Non morbid obesity due to excess calories E66.09 and Thyroid nodule E04.[address] [id number] Aug, [address] [id number] Jul, Severe episode of recurrent major depressive disorder, without psychotic features F33.2 ; Thyroid nodule E04.1 ; Constipation, chronic K59.09 and Non morbid obesity due to excess calories E66.09 [id number] [place] [address] [id number] June, Sore throat J02.9 and Major depressive disorder, single episode, unspecified F32.9 [facility] [address] [address] May, [facility] [address] [address]- [address] May, [facility] [address] [address]- [address] 14 Mar, 2013 [facility] [address] [id number] [place] [address]- 9[address] 14 Mar, 2013 [facility] [address] [id number] [place] [address]- 4346 06 Mar, 2013 [facility] [address] [facility] [id number] [place] [address]- 5706 Mar, [facility] [address] [id number] [place] [address]- 4706 Jan, [facility] [address] [id number] [place] [address]- 8626 Jan, [facility] [address] [id number] [place] [address]- 8164 Jan, [facility] [address] [facility] [id number] [place] [address]- 8329 Jan, [facility] [address] [id number] [place] [address]- 8151 Jan, [facility] [address] [facility] [id number] [place] [address]- 9013 Jan, [facility] [address] [facility] [id number] [place] [address]- 6973 Jan, [facility] [address] [facility] [id number] [place] [address]- 4340 Jan, [facility] [place] [facility] [address] [id number] [place] [address]- 4984 Dec, [facility] [place] [facility] [address] [id number] [place] [address]- 2769 Dec, [facility] [place] [facility] [address] [facility] [id number] [place] [address]- 3654 Apr, [facility] [place] [facility] [address] [facility] [id number] [place] [address]- 0456 Jan, [facility] [place] [facility] [address] [id number] [place] [address]- 2638 Jan, [facility] [place] [facility] [address] [id number] [place] [address]- 3044 Dec, [facility] [place] [facility] [address] [id number] [place] [address]- 7347 Dec, [facility] [place] [facility] [address] [facility] [id number] [place]- [address] Nov, [facility] [place] [facility] [address] [id number] [place] [address]- 4081 Nov, [facility] [place] [facility] [address] [facility] [id number] [place] [address]- 5169 Sep, [facility] [place] [facility] [address] [facility] [id number] [place] [address] Sep, [facility] [address] [facility] [id number] [place] [id number] Sep, [facility] [address] [facility] [id number] [place] [id number] Sep, [facility] [place] [facility] [address] [facility] [id number] [place] [address] Sep, [facility] [place] [facility] [address] [facility] [id number], [place] [address] Sep, [facility] [address] [facility] [id number] [place] [id number] Aug, [facility] [place] [facility] [address] [facility] [id number], [place] [address] Aug, [facility] [place] [facility] [address] [facility] [id number] [place] [address] Aug, [facility] [place] [facility] [address] [facility] [id number] [place] [address] Aug, [facility] [address] [facility] [id number] [place] [id number] Jul, [facility] [place] [facility] [address] [id number] [place] [address] 28 Jul, 2011 [facility] [place] [facility] [address] [id number] [place] [address] Jul, [facility] [place] [facility] [address] [id number] [place] [address] Jul, [facility] [place] [facility] [address] [facility] [id number] [place] [address] May, [facility] [place] [facility] [address] [id number] [place] [address] Feb, [facility] [place] [facility] [address] [facility] [id number] [place] [address], [place] [address] Jan, [facility] [place] [facility] [address] [facility] [id number] [place] [address] Jan, [facility] [place] [facility] [address] [facility] [id number] [place] [address] Dec, [facility] [place] [facility] [address] [facility] [id number], [place] [address] Dec, [facility] [place] [facility] [address] [facility] [id number] [place] [address] Dec, [facility] [place] [facility] [address] [facility] [id number], [place] [address] Nov, [facility] [place] [facility] [address] [facility] [id number] [place] [address] Nov, [facility] [place] [facility] [address] [facility] [id number], [place] [address] Sep, [facility] [place] [facility] [address] [facility] [id number], [place] [address] Jul, [facility] [place] [facility] [address] [facility] [id number], [place] [address] Mar, [facility] [place] [facility] [address] [facility] [id number], [place] [address] Nov, [facility] [address] [facility] [id number] [place] [address] Nov, IMMUNIZATIONS No Known Immunizations SOCIAL HISTORY Never Assessed REASON FOR VISIT Mammogram/bone density PLAN OF CARE VITAL SIGNS MEDICATIONS Unknown Medications RESULTS Name Result Date Reference Range DEXA 2017-09-14 Mammogram, Bilateral Screening 2017-09-14 PROCEDURES No Known procedures INSTRUCTIONS MEDICATIONS ADMINISTERED No Known Medications MEDICAL (GENERAL) HISTORY Type Description Date Medical History Fibromyalgia Medical History Chronic Consipation Medical History 08/16/16 [facility] [place] general surgery center, Dr. Jimenez, hemorrhage of [...] Medical History MRI- Brain 05/29/2017 Medical History [place] Spotted Tick Fever Medical History Ebstein Feng Virus Surgical History hysterectomy, total with unilateral salpingo-oophorectomy ( USO) Surgical History cholecystectomy Surgical History tonsillectomy and adenoidectomy Surgical History hemorrhoidectomy Surgical History EGD Surgical History colonoscopy 08/25/16 Hospitalization History fever, HTN, abnormal head [facility] 05/28/17
--- OUTSIDE RECORDS SUMMARY | 2017-11-06 12:27 | XMS REPORT ---
Author Author MICHAEL CORREIA Organization [facility] Address [address] [place] [address] Care Team Providers Care Production Statistical Clerk Name Role Phone MICHAEL CORREIA Unavailable PROBLEMS Type Condition ICD9-CM Code IPY05-MO Code Onset Dates Condition Status SNOMED Code Problem Major depressive disorder, single episode, unspecified F32.9 Active 92499696 Problem Thyroid nodule E04.1 Active 09581030 Problem Severe single current episode of major depressive disorder, without psychotic features F32.2 Active 77019810 Problem Severe episode of recurrent major depressive disorder, without psychotic features F33.2 Active 800364622409 Problem Chronic tension-type headache, intractable G44.221 Active 220074768 Problem Constipation, chronic K59.09 Active 678270466 Problem Essential hypertension I10 Active 54049644 Problem Non morbid obesity due to excess calories E66.09 Active 565659738 Problem 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 Active 560456215 Problem RMSF ([place] spotted 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 Active 778471321 Problem Abnormal brain MRI R90.89 Active 924419350 Problem Abnormal mammogram of left breast R92.8 Active 309256479 Problem Diarrhea, unspecified type R19.7 Active 81656284 Problem Controlled substance agreement signed Z79.899 Active 637781062 Problem Other chronic pain G89.29 Active 725022041 Problem Scoliosis of thoracolumbar spine, unspecified scoliosis type M41.9 Active 763491929 Problem 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 Active 978151025 Problem Recurrent fever A68.9 Active 238338343 Problem Epigastric abdominal pain R10.13 Active 71852692 Problem Abnormal mammogram R92.8 Active 455130042 Problem Pain in thoracic spine M54.6 Active 670256226691640 Problem Cervicalgia M54.2 Active 4358501005612 Problem Radicular low back pain M54.10 Active 79031744 Problem Muscle spasm M62.838 Active 81376860 Problem Other chronic pain G89.29 Active 208644200 Problem Fibromyalgia M79.7 Active 145390414 Problem Anxiety F41.9 Active 630264285 Problem Acute bilateral low back pain with sciatica, sciatica laterality unspecified M54.40 Active 241870010 ALLERGIES No Information ENCOUNTERS Encounter Location Date Diagnosis [facility] [address] [address] [id number] [id number] Sep, [facility] [address] [address] Sep, [facility] [address] [facility] [address] [id number] [place] [id number] Sep, [facility] [address] [id number] [address] Sep, Fibromyalgia M79.[address] [id number] [place] [address] Sep, Epigastric abdominal pain R10.13 and Diarrhea, unspecified type R19.7 [facility] [id number] [place] [id number] Sep, Abnormal mammogram of left breast R92.8 [facility] [id number] [place]OUND[place] [id number] Sep, Abnormal mammogram R92.8 [facility] [id number] [place]OUND[place] [address] Sep, [facility] [id number] [place] [address] [id number] Aug, Abnormal mammogram R92.8 [facility] [address] [id number] [place] [id number] Aug, [facility] [address] [id number] [place] [address] [id number] Aug, [facility] [id number] [place]OUND[place] [id number] Aug, Screening breast examination Z12.31 and At risk for bone density loss Z91.89 [facility] [place] [address] [id number] [place]OUND[place] [id number] Aug, [facility] [place] [address] [id number] [place] [id number] Aug, [facility] [place] [address] [id number] [place] [address] Aug, Other chronic pain G89.29 [facility] [place] [address] [id number] [place] [id number] Aug, [facility] [place] [address] [id number] [place] [id number] Aug, [facility] [place] [address] [id number] [place] [id number] Aug, 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 [place] [address] [id number] [place] [id number] Jul, [facility] [place] [address] [id number] [place] [id number] Jul, [facility] [place] [address] [id number] [place] [id number] Jul, Muscle spasm M62.838 and Anxiety F41.9 [facility] [place] [address] [id number] [place] [id number] Jul, [facility] [place] [address] [id number] [place] [id number] Jul, [facility] [place] [address] [id number] [place] [id number] Jul, [facility] [address] [id number] [place] [id number] Jul, [facility] [place] [address] [id number] [place] [id number] Jul, [facility] [place] [address] [id number] [place] 4397[address] Jul, [facility] [place] [address] [id number] [id number] Jul, [facility] [place] [address] [id number] [place] [id number] Jul, [facility] [place] [address] [id number] [place] [address] Jul, [facility] [place] [address] [id number] [place] 6621948[address] Jul, [facility] [place] [address] [id number] [place] [id number] Jul, Radicular low back pain M54.10 ; Other chronic pain G89.29 and Fibromyalgia M79.7 [facility] [place] [address] [id number] [place] [id number] Jul, [facility] [place] [address] [id number] [place] [id number] Jul, [facility] [place] [address] [id number] [place] [id number] Jul, [facility] [place] [address] [id number] [place] [id number] June, [facility] [place] [address] [id number] [place] [id number] June, 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 and RMSF ([place] spotted 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 [facility] [place] [address] [id number] [place] [id number] June, [facility] [place] [address] [id number] [place] [phone] June, [facility] [place] [address] [id number] [place] [address] [id number] June, RMSF ([place] spotted 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 and 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 [id number] [place] [address] June, [facility] [id number] [place] [address] [id number] June, [facility] [address] [id number] [place] [address] June, Radicular low back pain M54.10 and Scoliosis of thoracolumbar spine, unspecified scoliosis type M41.9 [facility] [place] [address] [id number] [place] [id number] June, [facility] [place] [id number] [place] [id number] June, [facility] [place] [address] [id number] [place] [id number] June, [facility] [place] [address] [id number] [place] [id number] June, [facility] [place] [address] [id number] [place] [address] [id number] June, RMSF ([place] spotted 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 [facility] [place] [address] [id number] [place] [id number] June, [facility] [place] [address] [id number] [place] [id number] June, Muscle spasm M62.838 [facility] [id number] [place] [id number] June, [facility] [id number] [place] [address] [id number] May, [facility] [id number] [place] [id number] May, [facility] [id number] [place] [address] [id number] May, [facility] [address] [facility] [address] [id number] [place] [id number] May, RMSF ([place] spotted 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 [facility] [address] [facility] [address] [id number] [place] [id number] May, Essential hypertension I10 [facility] [address]00565100[place] [address] May, [facility] [id number] [place] [address] [id number] May, Other chronic pain G89.29 [facility] [id number] [place] [address] [id number] May, [facility] [id number] [place] [address] [id number] May, [facility] [id number] [place] [address] [id number] May, [facility] [id number] [place] [address] [id number] May, [facility] [id number] [place] [id number] May, RMSF ([place] spotted 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 ; Nausea R11.0 ; [...] depressive disorder, single episode, unspecified F32.9 [facility] [address] [id number] [place] [address]- [address] May, [place] spotted fever A77.0 [facility] [place] [address] [id number] [place] [id number] May, [facility] [place] [address] [id number] [place] [id number] May, [facility] [address] [id number] [place] [address]- [address] May, [facility] [place] [address] [id number] [place] [id number] May, [facility] [place] [address] [id number] [place] [id number] May, [facility] [place] [address] [id number] [place] [id number] May, [facility] [place] [address] [id number] [place] [id number] May, [facility] [place] [address] [id number] [place] [id number] May, [facility] [place] [address] [id number] [place] [id number] May, [facility] [place] [address] [id number] [place] [id number] May, [facility] [place] [address] [id number] [place] [id number] May, [facility] [place] [address] [id number] [place] [id number] May, [facility] [place] [address] [id number] [place] [id number] May, [facility] [place] [address] [id number] [place] [id number] May, [facility] [place] [address] [id number] [place] [id number] May, [facility] [place] [address] [id number] [place] [id number] May, [facility] [place] [address] [id number] [place] [id number] May, Radicular low back pain M54.10 ; Other chronic pain G89.29 ; Fibromyalgia M79.7 ; Cervicalgia M54.2 ; Pain in thoracic spine M54.6 and Scoliosis of thoracolumbar spine, unspecified scoliosis type M41.[address] [id number] [place] [id number] May, [facility] [id number] [place] [id number] Apr, Muscle spasm M62.838 [address] [place] [address] [id number] Apr, [place] [id number] [place] [address] [phone] Apr, Fibromyalgia M79.7 ; Muscle spasm M62.838 ; Other chronic pain G89.29 ; Vision changes H53.9 ; Headache above the eye region R51 ; Major depressive disorder, single episode, unspecified F32.9 ; Neck pain M54.2 and Thyroid nodule E04.1 [address]00565100[place] [id number] Apr, Other chronic pain G89.29 [address] [place] [address] [id number] Apr, Chronic tension-type headache, intractable G44.221 [address] [place] [address] [id number] Mar, Other chronic pain G89.29 ; Scoliosis of thoracolumbar spine, unspecified scoliosis type M41.9 ; Muscle spasm M62.838 ; Other chronic pain G89.29 ; Headache above the eye region R51 ; Hospital discharge follow-up Z09 ; Lumbar back pain with radiculopathy affecting right lower extremity M54.17 ; Lumbar back pain with radiculopathy affecting left lower extremity M54.17 and Myalgia M79.1 [address]00565100[place] [id number] Mar, [address] [id number] [place] [address] [id number] 14 Mar, 2017 Other chronic pain G89.29 [facility] [id number] [place] [address] [id number] 14 Mar, 2017 Radicular low back pain M54.10 [facility] [id number] [place] [address] [id number] Feb, [place] [id number] [place] [address] [id number] Feb, [facility] [id number] [place] [address] [id number] Feb, Muscle spasm M62.838 [place] [id number] [place] [address] [id number] Feb, Itching L29.9 and Acute bilateral back pain, unspecified back location M54.9 [place] [id number] [place] [address] [id number] Feb, History of pneumonia Z87.01 ; Cough R05 ; Radicular low back pain M54.10 ; Scoliosis of thoracolumbar spine, unspecified scoliosis type M41.9 ; Elevated liver enzymes R74.8 ; Influenza J11.1 ; Severe single current episode of major depressive disorder, without psychotic features F32.2 and Stressful life events affecting family and household Z63.79 [place] [id number] [place] [address] [id number] Jan, Muscle spasm M62.838 [place] [id number] [place] [address] [id number] Jan, Post-nasal drainage R09.82 ; Anxiety F41.9 and Cough R05 [place] [id number] [place] [address] [id number] Jan, Severe episode of recurrent major depressive disorder, without psychotic features F33.2 [address] [place] [address] [id number] Jan, Muscle spasm M62.838 [place] [id number] [place] [address] [id number] Jan, Acute recurrent maxillary sinusitis J01.01 and Breast tenderness in female N64.4 [facility] [id number] [place] [id number] Nov, [facility] [id number] [place] [address] [id number] Nov, [facility] [id number] [place] [address] [id number] Nov, Radicular low back pain M54.10 and Muscle spasm M62.838 [facility] [id number] [place] [address] [id number] Nov, [place] [id number] [place] [address] [id number] Nov, Viral disease B34.9 ; Fever, unspecified fever cause R50.9 ; Other fatigue R53.83 and Other malaise R53.81 [facility] [id number] [place] [address] [id number] Nov, Thyroid nodule E04.1 [place] [id number] [place] [address] [id number] Nov, Severe episode of recurrent major depressive disorder, without psychotic features F33.[address] [place] [address] [id number] Nov, Acute nasopharyngitis J00 [address] [place] [address] [id number] Oct, Scoliosis of thoracolumbar spine, unspecified scoliosis type M41.9 ; Muscle spasm M62.838 ; Thyroid nodule E04.1 ; Pain in thoracic spine M54.6 ; Other chronic pain G89.29 ; Cervicalgia M54.2 ; Radicular low back pain M54.10 ; Severe episode of recurrent major depressive disorder, without psychotic features F33.2 and High risk medication use Z79.899 [facility] [address]00565100[place] 63768[address]- [address] Oct, [facility] [address] [id number] [place] [id number] Sep, Scoliosis of thoracolumbar spine, unspecified scoliosis type M41.9 ; Muscle spasm M62.838 ; Thyroid nodule E04.1 ; Pain in thoracic spine M54.6 ; Other chronic pain G89.29 ; Cervicalgia M54.2 ; Controlled substance agreement signed Z79.899 ; Vaginal yeast infection B37.3 and Radicular low back pain M54.10 [facility] [id number] [place] [address] [id number] Sep, Scoliosis of thoracolumbar spine, unspecified scoliosis type M41.9 and Muscle spasm M62.838 [place] [id number] [place] [address] [id number] Sep, Severe episode of recurrent major depressive disorder, without psychotic features F33.[address] [id number] Aug, Severe episode of recurrent major depressive disorder, without psychotic features F33.2 ; Thyroid nodule E04.1 ; Constipation, chronic K59.09 and Non morbid obesity due to excess calories E66.09 [place] [id number] [place] [address] [id number] Aug, Non morbid obesity due to excess calories E66.09 and Thyroid nodule E04.[address] [id number] Aug, [address] [id number] Jul, Severe episode of recurrent major depressive disorder, without psychotic features F33.2 ; Thyroid nodule E04.1 ; Constipation, chronic K59.09 and Non morbid obesity due to excess calories E66.09 [place] [id number] [place] [address] [id number] June, Sore throat J02.9 and Major depressive disorder, single episode, unspecified F32.9 [facility] [address] [address]- [address] May, [facility] [address] [address]- [address] May, [facility] [address] [address]- [address] 14 Mar, 2013 [facility] [address] [id number] [place] [address]- 1246 14 Mar, 2013 [facility] [address] [id number] [place] [address]- 4626 06 Mar, 2013 [facility] [address] [facility] [id number] [place] [address]- 1226 Mar, [facility] [address] [id number] [place] [address]- 2263 Jan, [facility] [address] [id number] [place] [address]- 4177 Jan, [facility] [address] [id number] [place] [address]- 3742 Jan, [facility] [address] [facility] [id number] [place] [address]- 7717 Jan, [facility] [address] [id number] [place] [address]- 1536 Jan, [facility] [address] [facility] [id number] [place] [address]- 3701 Jan, [facility] [address] [facility] [id number] [place] [address]- 8548 Jan, [facility] [address] [facility] [id number] [place] [address]- 7134 Jan, [facility] [place] [facility] [address] [id number] [place] [address]- 4070 Dec, [facility] [place] [facility] [address] [id number] [place] [address]- 0159 Dec, [facility] [place] [facility] [address] [facility] [id number] [place] [address]- 2942 Apr, [facility] [place] [facility] [address] [facility] [id number] [place] [address]- 2583 Jan, [facility] [place] [facility] [address] [id number] [place] [address]- 4304 Jan, [facility] [place] [facility] [address] [id number] [place] [address]- 5634 Dec, [facility] [place] [facility] [address] [id number] [place] [address]- 9884 Dec, [facility] [place] [facility] [address] [facility] [id number] [place]24[place]- 8470 Nov, [facility] [place] [facility] [address] [id number] [place] [address]- 1859 Nov, [facility] [place] [facility] [address] [facility] [id number] [place] [address]- 6396 Sep, [facility] [place] [facility] [address] [facility] [id number] [place] [address]- 3969 Sep, [facility] [place] [address] [facility] [id number] [place] [id number] Sep, [facility] [place] [address] [facility] [id number] [place] [id number] Sep, [facility] [place] [facility] [address] [facility] [id number] [place] [address]- 9946 Sep, [facility] [place] [facility] [address] [facility] [id number][place] [address]- 0926 Sep, [facility] [place] [address] [facility] [id number] [place] [id number] Aug, [facility] [place] [facility] [address] [facility] [id number][place] [address]- 8[address] Aug, [facility] [place] [facility] [address] [facility] [id number] [place] [address] Aug, [facility] [place] [facility] [address] [facility] [id number] [place] [address] Aug, [facility] [address] [facility] [id number] [place] [id number] Jul, [facility] [place] [facility] [address] [id number] [place] [address] 28 Jul, 2011 [facility] [place] [facility] [address] [id number] [place] [address] Jul, [facility] [place] [facility] [address] [id number] [place] [address] Jul, [facility] [place] [facility] [address] [facility] [id number] [place] [address] May, [facility] [place] [facility] [address] [id number] [place] [address] Feb, [facility] [place] [facility] [address] [facility] [id number] [place] [address], [place] [address] Jan, [facility] [place] [facility] [address] [facility] [id number] [place] [address] Jan, [facility] [place] [facility] [address] [facility] [id number] [place] [address] Dec, [facility] [place] [facility] [address] [facility] [id number], [place] [address] Dec, [facility] [place] [facility] [address] [facility] [id number] [place] [address] Dec, [facility] [place] [facility] [address] [facility] [id number][place] [address] Nov, [facility] [place] [facility] [address] [facility] [id number] [place] [address] Nov, [facility] [place] [facility] [address] [facility] [id number], [place] [address] Sep, [facility] [place] [facility] [address] [facility] [id number], [place] [address] Jul, [facility] [place] [facility] [address] [facility] [id number], [place] [address] Mar, [facility] [place] [facility] [address] [facility] [id number][place] [address] Nov, [facility] [address] [facility] [id number] [place] [address] Nov, IMMUNIZATIONS No Known Immunizations SOCIAL HISTORY Never Assessed REASON FOR VISIT Re: RE:Medication PLAN OF CARE VITAL SIGNS MEDICATIONS Medication Instructions Dosage Frequency Start Date End Date Duration Status Hydrocodone-Acetaminophen 5-325 MG Orally Once a day, must last 28 days 1 tablet as needed Aug, 0 days Active RESULTS No Results PROCEDURES No Known procedures INSTRUCTIONS MEDICATIONS ADMINISTERED No Known Medications MEDICAL (GENERAL) HISTORY Type Description Date Medical History Fibromyalgia Medical History Chronic Consipation Medical History 08/16/16 [facility] general surgery center, Dr. [...] Medical History MRI- Brain 05/29/2017 Medical History [place] Spotted Tick Fever Medical History Ebstein Feng Virus Surgical History hysterectomy, total with unilateral salpingo-oophorectomy ( USO) Surgical History cholecystectomy Surgical History tonsillectomy and adenoidectomy Surgical History hemorrhoidectomy Surgical History EGD Surgical History colonoscopy 08/25/16 Hospitalization History fever, HTN, abnormal head [facility] 05/28/17
--- OUTSIDE RECORDS SUMMARY | 2017-11-06 12:27 | XMS REPORT ---
Author Author MICHAEL CORREIA Organization [facility] Address [address] [place] [address] Care Team Providers Care Body Presser Name Role Phone MICHAEL CORREIA Unavailable PROBLEMS Type Condition ICD9-CM Code VTR47-BW Code Onset Dates Condition Status SNOMED Code Problem Major depressive disorder, single episode, unspecified F32.9 Active 83434661 Problem Thyroid nodule E04.1 Active 11040566 Problem Severe single current episode of major depressive disorder, without psychotic features F32.2 Active 38257754 Problem Severe episode of recurrent major depressive disorder, without psychotic features F33.2 Active 721594313553 Problem Chronic tension-type headache, intractable G44.221 Active 737160876 Problem Constipation, chronic K59.09 Active 301823846 Problem Essential hypertension I10 Active 36173309 Problem Non morbid obesity due to excess calories E66.09 Active 464309225 Problem 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 Active 640685191 Problem RMSF ([place] spotted 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 Active 477210011 Problem Abnormal brain MRI R90.89 Active 320094039 Problem Abnormal mammogram of left breast R92.8 Active 846042359 Problem Diarrhea, unspecified type R19.7 Active 31013180 Problem Controlled substance agreement signed Z79.899 Active 115715027 Problem Other chronic pain G89.29 Active 499811075 Problem Scoliosis of thoracolumbar spine, unspecified scoliosis type M41.9 Active 595720284 Problem 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 Active 394869469 Problem Recurrent fever A68.9 Active 383735415 Problem Epigastric abdominal pain R10.13 Active 67597664 Problem Abnormal mammogram R92.8 Active 367631000 Problem Pain in thoracic spine M54.6 Active 570924760680871 Problem Cervicalgia M54.2 Active 5714515504994 Problem Radicular low back pain M54.10 Active 88166928 Problem Muscle spasm M62.838 Active 85849248 Problem Other chronic pain G89.29 Active 136630602 Problem Fibromyalgia M79.7 Active 372369988 Problem Anxiety F41.9 Active 196752361 Problem Acute bilateral low back pain with sciatica, sciatica laterality unspecified M54.40 Active 499077414 ALLERGIES No Information ENCOUNTERS Encounter Location Date Diagnosis [facility] [address] [id number] [id number] Sep, [facility] [address] [address] Sep, [facility] [address] [facility] [address] [id number][place] [id number] Sep, [facility] [address] [id number] [address] Sep, Fibromyalgia M79.7 [facility] [address] [id number] [address] Sep, Epigastric abdominal pain R10.13 and Diarrhea, unspecified type R19.7 [facility] [id number] [place] [id number] Sep, Abnormal mammogram of left breast R92.8 [facility] [id number] [place] [address] Sep, Abnormal mammogram R92.8 [facility] [id number] [place] [address] Sep, [facility] [id number] [place] [address] [id number] Aug, Abnormal mammogram R92.8 [facility] [address] [id number] [place] [address] Aug, [facility] [address] [id number] [place] [address] [id number] Aug, [facility] [id number] [place] [id number] Aug, Screening breast examination Z12.31 and At risk for bone density loss Z91.89 [facility] [place] [address] [id number] [place] [address]806[address] Aug, [facility] [place] [address] [id number] [place] [address] Aug, [facility] [place] [address] [id number] [place] [id number] Aug, Other chronic pain G89.29 [facility] [place] [address] [id number] [place] [id number] Aug, [facility] [place] [address] [id number] [place] 409263989 Aug, [facility] [place] [address] [id number] [place] [address] Aug, [facility] [place] [address] [id number] [place] [address] Aug, Fibromyalgia M79.7 ; Anxiety F41.9 ; High risk medication use Z79.899 ; Other chronic pain G89.29 ; Recurrent fever A68.9 ; 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 and RMSF ([place] spotted 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 [facility] [place] [address] [id number] [place] [address] Jul, [facility] [place] [address] [id number] [place] [address] Jul, [facility] [place] [address] [id number] [place] [address] Jul, Muscle spasm M62.838 and Anxiety F41.9 [facility] [place] [address] [id number] [place] 413536[address] Jul, [facility] [place] [address] [id number] [place] [id number] Jul, [facility] [place] [address] [id number] [place] [id number] Jul, [facility] [address] [id number], [place] [address] Jul, [facility] [place] [address] [id number] [place] [id number] Jul, [facility] [place] [address] [id number] [place] [id number] Jul, [facility] [place] [address] [id number] [place] [address] Jul, [facility] [place] [address] [id number] [place] [id number] Jul, [facility] [place] [address] [id number] [place] [id number] Jul, [facility] [place] [address] [id number] [place] [id number] Jul, [facility] [place] [address] [id number] [place] [id number] Jul, Radicular low back pain M54.10 ; Other chronic pain G89.29 and Fibromyalgia M79.7 [facility] [place] [address] [id number] [place] [id number] Jul, [facility] [place] [address] [id number] [place] [address] Jul, [facility] [place] [address] [id number] [place] 659134766 Jul, [facility] [place] [address] [id number] [place] [id number] June, [facility] [place] [address] [id number] [place] 0[address] June, [facility] [place] [address] [id number] [place] [id number] June, 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 ; Recurrent fever A68.9 ; Other chronic pain G89.29 ; Radicular low back pain M54.10 ; Chronic tension- type headache, intractable G44.221 ; Essential hypertension I10 ; RMSF ([place] spotted 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 and Abnormal brain MRI R90.89 [facility] [place] [address] [id number] [place] [id number] June, [facility] [place] [address] [id number] [id number] June, 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 and RMSF ([place] spotted 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 [facility] [place] [address] [id number] [place] [id number] June, [facility] [place] [address] [id number] [place] [id number] June, [facility] [place] [address] [id number] [place] [address] [id number] June, RMSF ([place] spotted 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 and 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 [facility] [place] [address] [id number] [place] [address] [id number] June, [facility] [place] [address] [id number] [place] [address] [id number] June, [facility] [place] [id number] [place] [address] [id number] June, [facility] [id number] [place] [address] June, [facility] [place] [id number] [place] [address] [id number] June, [facility] [place] [id number] [place] [address] June, Radicular low back pain M54.10 and Scoliosis of thoracolumbar spine, unspecified scoliosis type M41.9 [facility] [place] [address] [id number] [place] [id number] June, [facility] [place] [id number] [place] [id number] June, [facility] [place] [address] [id number] [place] [id number] June, [facility] [place] [address] [id number] [place] 948505500 June, [facility] [place] [address] [id number] [place] [address] [id number] June, RMSF ([place] spotted 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 [facility] [place] [address] [id number] [place] [id number] June, [facility] [place] [address] [id number] [place] 889111889 June, Muscle spasm M62.838 [facility] [id number] [place] [id number] June, [facility] [id number] [place] [address] [id number] May, [facility] [id number] [place] [id number] May, [facility] [id number] [place] [address] [id number] May, [facility] [address] [id number], [place] [id number] May, RMSF ([place] spotted 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 [facility] [address] [id number], [place] [id number] May, Essential hypertension I10 [facility] [address]005[address]100[place], [place] [address] May, [facility] [id number] [place] [address] [id number] May, Other chronic pain G89.29 [facility] [id number] [place] [address] [id number] May, [facility] [id number] [place] [address] [id number] May, [facility] [id number] [place] [address] [id number] May, [facility] [id number] [place] [address] [id number] May, [facility] [id number] [place] 567930077 May, RMSF ([place] spotted 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 ; Nausea R11.0 ; [...] depressive disorder, single episode, unspecified F32.9 [facility] [address] [id number] [place] [address] May, [place] spotted fever A77.0 [facility] [place] [address] [id number] [place] [id number] May, [facility] [place] [address] [id number] [place] [id number] May, [facility] [address] [id number] [place] [address]- [address] May, [facility] [place] [address] [id number] [place] [id number] May, [facility] [place] [address] [id number] [place] [id number] May, [facility] [place] [address] [id number] [place] [id number] May, [facility] [place] [address] [id number] [place] [id number] May, [facility] [place] [address] [id number] [place] [id number] May, [facility] [place] [address] [id number] [place] 532651763 May, [facility] [place] [address] [id number] [place] [id number] May, [facility] [place] [address] [id number] [place] [id number] May, [facility] [place] [address] [id number] [place] 488728054 May, [facility] [place] [address] [id number] [place] [id number] May, [facility] [place] [address] [id number] [place] [id number] May, [facility] [place] [address] [id number] [place] [id number] May, [facility] [place] [address] [id number] [place] [id number] May, [facility] [place] [address] [id number] [place] [id number] May, Radicular low back pain M54.10 ; Other chronic pain G89.29 ; Fibromyalgia M79.7 ; Cervicalgia M54.2 ; Pain in thoracic spine M54.6 and Scoliosis of thoracolumbar spine, unspecified scoliosis type M41.[address] [id number], [place] [id number] May, [facility] [id number] [place] [id number] Apr, Muscle spasm M62.838 [address] [place] [address] [id number] Apr, [place] [id number] [place] [address] [id number] Apr, Fibromyalgia M79.7 ; Muscle spasm M62.838 ; Other chronic pain G89.29 ; Vision changes H53.9 ; Headache above the eye region R51 ; Major depressive disorder, single episode, unspecified F32.9 ; Neck pain M54.2 and Thyroid nodule E04.1 [address]00565100[place] [id number] Apr, Other chronic pain G89.29 [address] [place] [address] [id number] Apr, Chronic tension-type headache, intractable G44.221 [address] [place] [address] [id number] Mar, Other chronic pain G89.29 ; Scoliosis of thoracolumbar spine, unspecified scoliosis type M41.9 ; Muscle spasm M62.838 ; Other chronic pain G89.29 ; Headache above the eye region R51 ; Hospital discharge follow-up Z09 ; Lumbar back pain with radiculopathy affecting right lower extremity M54.17 ; Lumbar back pain with radiculopathy affecting left lower extremity M54.17 and Myalgia M79.1 [address]00565100[place] [id number] Mar, [place] [id number] [place] [address] [id number] 14 Mar, 2017 Other chronic pain G89.29 [facility] [id number] [place] [address] [id number] 14 Mar, 2017 Radicular low back pain M54.10 [facility] [id number] [place] [address] [id number] Feb, [place] [id number] [place] [address] [id number] Feb, [facility] [id number] [place] [address] [id number] Feb, Muscle spasm M62.838 [place] [id number] [place] [address] [id number] Feb, Itching L29.9 and Acute bilateral back pain, unspecified back location M54.9 [place] [id number] [place] [address] [id number] Feb, History of pneumonia Z87.01 ; Cough R05 ; Radicular low back pain M54.10 ; Scoliosis of thoracolumbar spine, unspecified scoliosis type M41.9 ; Elevated liver enzymes R74.8 ; Influenza J11.1 ; Severe single current episode of major depressive disorder, without psychotic features F32.2 and Stressful life events affecting family and household Z63.79 [place] [id number] [place] [address] [id number] Jan, Muscle spasm M62.838 [place] [id number] [place] [address] [id number] Jan, Post-nasal drainage R09.82 ; Anxiety F41.9 and Cough R05 [place] [id number] [place] [address] [id number] Jan, Severe episode of recurrent major depressive disorder, without psychotic features F33.2 [address] [place] [address] [id number] Jan, Muscle spasm M62.838 [place] [id number] [place] [address] [id number] Jan, Acute recurrent maxillary sinusitis J01.01 and Breast tenderness in female N64.4 [facility] [id number] [place] [id number] Nov, [facility] [id number] [place] [address] [id number] Nov, [facility] [id number] [place] [address] [id number] Nov, Radicular low back pain M54.10 and Muscle spasm M62.838 [facility] [id number] [place] [address] [id number] Nov, [place] [id number] [place] [address] [id number] Nov, Viral disease B34.9 ; Fever, unspecified fever cause R50.9 ; Other fatigue R53.83 and Other malaise R53.81 [facility] [id number] [place] [address] [id number] Nov, Thyroid nodule E04.1 [place] [id number] [place] [address] [id number] Nov, Severe episode of recurrent major depressive disorder, without psychotic features F33.2 [address] [place] [address] [id number] Nov, Acute nasopharyngitis J00 [address] [place] [address] [id number] Oct, Scoliosis of thoracolumbar spine, unspecified scoliosis type M41.9 ; Muscle spasm M62.838 ; Thyroid nodule E04.1 ; Pain in thoracic spine M54.6 ; Other chronic pain G89.29 ; Cervicalgia M54.2 ; Radicular low back pain M54.10 ; Severe episode of recurrent major depressive disorder, without psychotic features F33.2 and High risk medication use Z79.899 [facility] [address]00565100[place] 547106[place]- [address] Oct, [facility] [address] [id number] [place] [id number] Sep, Scoliosis of thoracolumbar spine, unspecified scoliosis type M41.9 ; Muscle spasm M62.838 ; Thyroid nodule E04.1 ; Pain in thoracic spine M54.6 ; Other chronic pain G89.29 ; Cervicalgia M54.2 ; Controlled substance agreement signed Z79.899 ; Vaginal yeast infection B37.3 and Radicular low back pain M54.10 [facility] [id number] [place] [address] [id number] Sep, Scoliosis of thoracolumbar spine, unspecified scoliosis type M41.9 and Muscle spasm M62.838 [place] [id number] [place] [address] [id number] Sep, Severe episode of recurrent major depressive disorder, without psychotic features F33.[address] [id number] Aug, Severe episode of recurrent major depressive disorder, without psychotic features F33.2 ; Thyroid nodule E04.1 ; Constipation, chronic K59.09 and Non morbid obesity due to excess calories E66.09 [place] [id number] [place] [address] [id number] Aug, Non morbid obesity due to excess calories E66.09 and Thyroid nodule E04.[address] [id number] Aug, [address] [id number] Jul, Severe episode of recurrent major depressive disorder, without psychotic features F33.2 ; Thyroid nodule E04.1 ; Constipation, chronic K59.09 and Non morbid obesity due to excess calories E66.09 [place] [id number] [place] [address] [id number] June, Sore throat J02.9 and Major depressive disorder, single episode, unspecified F32.9 [facility] [address] [address]- [address] May, [facility] [address] [address]- [address] May, [facility] [address] [address]- [address] 14 Mar, 2013 [facility] [place] [facility] [address] [id number] [place] [address]- [address] 14 Mar, 2013 [facility] [place] [facility] [address] [id number] [place] [address]- 9696 06 Mar, 2013 [facility] [place] [facility] [address] [facility] [id number] [place] [address]- 9[address] Mar, [facility] [place] [facility] [address] [id number] [place] [address]- 7607 Jan, [facility] [place] [facility] [address] [id number] [place] [address]- 2971 Jan, [facility] [place] [facility] [address] [id number] [place] [address]- 3391 Jan, [facility] [place] [facility] [address] [facility] [id number] [place] [address]- 0371 Jan, [facility] [place] [facility] [address] [id number] [place] [address]- 0968 Jan, [facility] [place] [facility] [address] [facility] [id number] [place] [address]- 7774 Jan, [facility] [place] [facility] [address] [facility] [id number] [place] [address]- 3160 Jan, [facility] [address] [facility] [id number] [place] [address]- 6180 Jan, [facility] [place] [facility] [address] [id number] [place] [address]- 6375 Dec, [facility] [place] [facility] [address] [id number] [place] [address]- 3863 Dec, [facility] [place] [facility] [address] [facility] [id number] [place] [address]- 2455 Apr, [facility] [place] [facility] [address] [facility] [id number] [place] [address]- 6[address] Jan, [facility] [place] [facility] [address] [id number] [place] [address]- 9607 Jan, [facility] [place] [facility] [address] [id number] [place] [address]- 6207 Dec, [facility] [place] [facility] [address] [id number] [place] [address]- 9019 Dec, [facility] [place] [facility] [address] [facility] [id number] [place]- [address] Nov, [facility] [place] [facility] [address] [id number] [place] [address]- 2542 Nov, [facility] [place] [facility] [address] [facility] [id number] [place] [address]- 7698 Sep, [facility] [place] [facility] [address] [facility] [id number] [place] [address]- 1330 Sep, [facility] [place] [address] [facility] [id number] [place] [id number] Sep, [facility] [place] [address] [facility] [id number] [place] [id number] Sep, [facility] [place] [facility] [address] [facility] [id number] [place] [address]- 1182 Sep, [facility] [place] [facility] [address] [facility] [id number][place] [address]- [address] Sep, [facility] [address] [facility] [id number] [id number] Aug, [facility] [place] [facility] [address] [facility] [place] [id number][place] [address] Aug, [facility] [place] [facility] [address] [facility] [place] [id number] [place] [address] Aug, [facility] [place] [facility] [address] [facility] [place] [id number] [place] [address] Aug, [facility] [address] [facility] [id number] [place] [id number] Jul, [facility] [place] [facility] [address] [id number] [place] [address] 28 Jul, 2011 [facility] [place] [facility] [address] [id number] [place] [address] Jul, [facility] [place] [facility] [address] [id number] [place] [address] Jul, [facility] [place] [facility] [address] [facility] [place] [id number] [place] [address] May, [facility] [place] [facility] [address] [id number] [place] [address] Feb, [facility] [place] [facility] [address] [facility] [place] [id number] [place] [address], [place] [address] Jan, [facility] [place] [facility] [address] [facility] [place] [id number] [place] [address] Jan, [facility] [place] [facility] [address] [facility] [place] [id number] [place] [address] Dec, [facility] [place] [facility] [address] [facility] [place] [id number], [place] [address] Dec, [facility] [place] [facility] [address] [facility] [place] [id number] [place] [address] Dec, [facility] [place] [facility] [address] [facility] [place] [id number], [place] [address] Nov, [facility] [place] [facility] [address] [facility] [place] [id number] [place] [address] Nov, [facility] [place] [facility] [address] [facility] [place] [id number], [place] [address] Sep, [facility] [place] [facility] [address] [facility] [place] [id number][place] [address] Jul, [facility] [place] [facility] [address] [facility] [place] [id number], [place] [address] Mar, [facility] [place] [facility] [address] [facility] [place] [id number][place] [address] Nov, [facility] [address] [facility] [place] [id number] [place] [address] Nov, IMMUNIZATIONS No Known Immunizations SOCIAL HISTORY Never Assessed REASON FOR VISIT Re: RE:Re: RE:Medication PLAN OF CARE VITAL SIGNS MEDICATIONS Unknown Medications RESULTS No Results PROCEDURES No Known procedures INSTRUCTIONS MEDICATIONS ADMINISTERED No Known Medications MEDICAL (GENERAL) HISTORY Type Description Date Medical History Fibromyalgia Medical History Chronic Consipation Medical History 08/16/16 [facility] general surgery center, Dr. Jimenez, hemorrhage [...] Medical History MRI- Brain 05/29/2017 Medical History [place] Spotted Tick Fever Medical History Ebstein Feng Virus Surgical History hysterectomy, total with unilateral salpingo-oophorectomy ( USO) Surgical History cholecystectomy Surgical History tonsillectomy and adenoidectomy Surgical History hemorrhoidectomy Surgical History EGD Surgical History colonoscopy 08/25/16 Hospitalization History fever, HTN, abnormal head [facility] 05/28/17
--- OUTSIDE RECORDS SUMMARY | 2017-11-06 12:28 | XMS REPORT ---
Author Author MICHAEL CORREIA Organization [facility] Address [address] [place] [address] Care Team Providers Care Astrobiologist Name Role Phone MICHAEL CORREIA Unavailable PROBLEMS Type Condition ICD9-CM Code KCR11-DD Code Onset Dates Condition Status SNOMED Code Problem Major depressive disorder, single episode, unspecified F32.9 Active 97610045 Problem Thyroid nodule E04.1 Active 54242060 Problem Severe single current episode of major depressive disorder, without psychotic features F32.2 Active 58381972 Problem Severe episode of recurrent major depressive disorder, without psychotic features F33.2 Active 853328105257 Problem Chronic tension-type headache, intractable G44.221 Active 306986567 Problem Constipation, chronic K59.09 Active 586428537 Problem Essential hypertension I10 Active 72889644 Problem Non morbid obesity due to excess calories E66.09 Active 437118719 Problem 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 Active 094264347 Problem RMSF (Red Cloud spotted 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 Active 066393713 Problem Abnormal brain MRI R90.89 Active 122488089 Problem Abnormal mammogram of left breast R92.8 Active 293747073 Problem Diarrhea, unspecified type R19.7 Active 95364257 Problem Controlled substance agreement signed Z79.899 Active 783773796 Problem Other chronic pain G89.29 Active 021262185 Problem Scoliosis of thoracolumbar spine, unspecified scoliosis type M41.9 Active 270412171 Problem 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 Active 447430855 Problem Recurrent fever A68.9 Active 774297337 Problem Epigastric abdominal pain R10.13 Active 48707616 Problem Abnormal mammogram R92.8 Active 963004504 Problem Pain in thoracic spine M54.6 Active [id number] Problem Cervicalgia M54.2 Active 7683941335984 Problem Radicular low back pain M54.10 Active 68032980 Problem Muscle spasm M62.838 Active 04087129 Problem Other chronic pain G89.29 Active 180847707 Problem Fibromyalgia M79.7 Active 692931246 Problem Anxiety F41.9 Active 737963165 Problem Acute bilateral low back pain with sciatica, sciatica laterality unspecified M54.40 Active 505920698 ALLERGIES No Information ENCOUNTERS Encounter Location Date Diagnosis [facility] [address] [id number] [id number] Sep, [facility] [address] [address] Sep, [facility] [address] [facility] [address] [id number][place] [id number] Sep, [facility] [address] [id number] [address] Sep, Fibromyalgia M79.7 [facility] [address] [id number][place] [id number] Sep, Epigastric abdominal pain R10.13 and Diarrhea, unspecified type R19.7 [facility] [id number] [place] [address] Sep, Abnormal mammogram of left breast R92.8 [facility] [id number] [place]ISH[place] [id number] Sep, Abnormal mammogram R92.8 [facility] [id number] [place] [id number] Sep, [facility] [id number] [place] [address] [id number] Aug, Abnormal mammogram R92.8 [facility] [address] [id number] [place] [id number] Aug, [facility] [id number] [place] [address] [id number] Aug, [facility] [id number] [place] [address] Aug, Screening breast examination Z12.31 and At risk for bone density loss Z91.89 [facility] [place] [address] [id number] [place] [address] Aug, [facility] [place] [address] [id number] [place] [id number] Aug, [facility] [place] [address] [id number] [place] [id number] Aug, Other chronic pain G89.29 [facility] [place] [address] [id number] [place] 270[address] Aug, [facility] [place] [address] [id number] [place]GL[place] [id number] Aug, [facility] [place] [address] [id number] [place] [id number] Aug, [facility] [place] [address] [id number] [place] [address] Aug, Fibromyalgia M79.7 ; Anxiety F41.9 ; High risk medication use Z79.899 ; Other chronic pain G89.29 ; Recurrent fever A68.9 ; 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 and RMSF (Red Cloud spotted 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 [facility] [place] [address] [id number] [place] [id number] Jul, [facility] [place] [address] [id number] [place] [id number] Jul, [facility] [place] [address] [id number] [place] [address] Jul, Muscle spasm M62.838 and Anxiety F41.9 [facility] [place] [address] [id number] [place] [id number] Jul, [facility] [place] [address] [id number] [place] [id number] Jul, [facility] [place] [address] [id number] [place] 6[address] Jul, [facility] [address] [id number][place] [address] Jul, [facility] [place] [address] [id number] [place] [id number] Jul, [facility] [place] [address] [id number] [place] [id number] Jul, [facility] [place] [address] [id number] [place] [address] Jul, [facility] [place] [address] [id number] [place] [address] Jul, [facility] [place] [address] [id number] [place] [address]46[address] Jul, [facility] [place] [address] [id number] [place] [id number] Jul, [facility] [place] [address] [id number] [place] 3607[address] Jul, Radicular low back pain M54.10 ; Other chronic pain G89.29 and Fibromyalgia M79.7 [facility] [place] [address] [id number] [place] 4297[address] Jul, [facility] [place] [address] [id number] [place] [address] Jul, [facility] [place] [address] [id number] [place] [id number] Jul, [facility] [place] [address] [id number] [place] [id number] June, [facility] [place] [address] [id number] [place] [id number] June, [facility] [place] [address] [id number] [place] [id number] June, 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 ; Recurrent fever A68.9 ; Other chronic pain G89.29 ; Radicular low back pain M54.10 ; Chronic tension- type headache, intractable G44.221 ; Essential hypertension I10 ; RMSF (Red Cloud spotted 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 and Abnormal brain MRI R90.89 [facility] [place] [address] [id number] [place] [id number] June, [facility] [place] [id number] [id number] June, 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 and RMSF (Red Cloud spotted 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 [facility] [place] [address] [id number] [place] [id number] June, [facility] [place] [address] [id number] [place] [id number] June, [facility] [place] [id number] [place] [address] [id number] June, RMSF (Red Cloud spotted 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 and 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 [facility] [place] [address] [id number] [place] [address] [id number] June, [facility] [place] [address] [id number] [place] [address] [id number] June, [facility] [place] [id number] [place] [address] [id number] June, [facility] [id number] [place] [address] June, [facility] [place] [id number] [place] [address] [id number] June, [facility] [id number] [place] [address] June, Radicular low back pain M54.10 and Scoliosis of thoracolumbar spine, unspecified scoliosis type M41.9 [facility] [place] [address] [id number] [place] [id number] June, [facility] [place] [id number] [place] [id number] June, [facility] [place] [address] [id number] [place] [id number] June, [facility] [place] [address] [id number] [place] [id number] June, [facility] [place] [id number] [place] [address] [id number] June, RMSF (Red Cloud spotted 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 [facility] [place] [address] [id number] [place] [id number] June, [facility] [place] [address] [id number] [place] [id number] June, Muscle spasm M62.838 [facility] [id number] [place] [id number] June, [facility] [id number] [place] [address] [id number] May, [facility] [id number] [place] [id number] May, [facility] [id number] [place] [address] [id number] May, [facility] [address] [facility] [address] [id number], [place] [id number] May, RMSF (Red Cloud spotted 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 [facility] [address] [facility] [address] [id number], [place] [id number] May, Essential hypertension I10 [facility] [address] [address] May, [facility] [id number] [place] [address] [id number] May, Other chronic pain G89.29 [facility] [id number] [place] [address] [id number] May, [facility] [id number] [place] [address] [id number] May, [facility] [id number] [place] [address] [id number] May, [facility] [id number] [place] [address] [id number] May, [facility] [id number] [place] [id number] May, RMSF (Red Cloud spotted 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 ; Nausea R11.0 ; [...] depressive disorder, single episode, unspecified F32.9 [facility] [address] [id number] [place] [address] May, Red Cloud spotted fever A77.0 [facility] [place] [address] [id number] [place] [id number] May, [facility] [place] [address] [id number] [place] [id number] May, [facility] [address] [id number] [place] [address] May, [facility] [place] [address] [id number] [place] [id number] May, [facility] [place] [address] [id number] [place] [id number] May, [facility] [place] [address] [id number] [place] 820381270 May, [facility] [place] [address] [id number] [place] [id number] May, [facility] [place] [address] [id number] [place] [id number] May, [facility] [place] [address] [id number] [place] [id number] May, [facility] [place] [address] [id number] [place] [id number] May, [facility] [place] [address] [id number] [place] [id number] May, [facility] [place] [address] [id number] [place] [id number] May, [facility] [place] [address] [id number] [place] [id number] May, [facility] [place] [address] [id number] [place] [id number] May, [facility] [place] [address] [id number] [place] [id number] May, [facility] [place] [address] [id number] [place] [id number] May, [facility] [place] [address] [id number] [place] [id number] May, Radicular low back pain M54.10 ; Other chronic pain G89.29 ; Fibromyalgia M79.7 ; Cervicalgia M54.2 ; Pain in thoracic spine M54.6 and Scoliosis of thoracolumbar spine, unspecified scoliosis type M41.[address] [id number], [place] [id number] May, [facility] [id number] [place] [id number] Apr, Muscle spasm M62.838 [id number] [place] [address] [id number] Apr, [id number] [place] [address] [id number] Apr, Fibromyalgia M79.7 ; Muscle spasm M62.838 ; Other chronic pain G89.29 ; Vision changes H53.9 ; Headache above the eye region R51 ; Major depressive disorder, single episode, unspecified F32.9 ; Neck pain M54.2 and Thyroid nodule E04.1 [address]00565100[place] [id number] Apr, Other chronic pain G89.29 [address] [place] [address] [id number] Apr, Chronic tension-type headache, intractable G44.221 [address] [place] [address] [id number] Mar, Other chronic pain G89.29 ; Scoliosis of thoracolumbar spine, unspecified scoliosis type M41.9 ; Muscle spasm M62.838 ; Other chronic pain G89.29 ; Headache above the eye region R51 ; Hospital discharge follow-up Z09 ; Lumbar back pain with radiculopathy affecting right lower extremity M54.17 ; Lumbar back pain with radiculopathy affecting left lower extremity M54.17 and Myalgia M79.1 [address]00565100[place] [id number] Mar, [id number] [place] [address] [id number] 14 Mar, 2017 Other chronic pain G89.29 [facility] [id number] [place] [address] [id number] 14 Mar, 2017 Radicular low back pain M54.10 [facility] [id number] [place] [address] [id number] Feb, [place] [id number] [place] [address] [id number] Feb, [facility] [id number] [place] [address] [id number] Feb, Muscle spasm M62.838 [place] [id number] [place] [address] [id number] Feb, Itching L29.9 and Acute bilateral back pain, unspecified back location M54.9 [place] [id number] [place] [address] [id number] Feb, History of pneumonia Z87.01 ; Cough R05 ; Radicular low back pain M54.10 ; Scoliosis of thoracolumbar spine, unspecified scoliosis type M41.9 ; Elevated liver enzymes R74.8 ; Influenza J11.1 ; Severe single current episode of major depressive disorder, without psychotic features F32.2 and Stressful life events affecting family and household Z63.79 [place] [id number] [place] [address] [id number] Jan, Muscle spasm M62.838 [place] [id number] [place] [address] [id number] Jan, Post-nasal drainage R09.82 ; Anxiety F41.9 and Cough R05 [place] [id number] [place] [address] [id number] Jan, Severe episode of recurrent major depressive disorder, without psychotic features F33.2 [address] [place] [address] [id number] Jan, Muscle spasm M62.838 [place] [id number] [place] [address] [id number] Jan, Acute recurrent maxillary sinusitis J01.01 and Breast tenderness in female N64.4 [facility] [id number] [place] [id number] Nov, [facility] [id number] [place] [address] [id number] Nov, [facility] [id number] [place] [address] [id number] Nov, Radicular low back pain M54.10 and Muscle spasm M62.838 [facility] [id number] [place] [address] [id number] Nov, [place] [id number] [place] [address] [id number] Nov, Viral disease B34.9 ; Fever, unspecified fever cause R50.9 ; Other fatigue R53.83 and Other malaise R53.81 [facility] [id number] [place] [address] [id number] Nov, Thyroid nodule E04.1 [place] [id number] [place] [address] [id number] Nov, Severe episode of recurrent major depressive disorder, without psychotic features F33.2 [address] [place] [address] [id number] Nov, Acute nasopharyngitis J00 [address] [place] [address] [id number] Oct, Scoliosis of thoracolumbar spine, unspecified scoliosis type M41.9 ; Muscle spasm M62.838 ; Thyroid nodule E04.1 ; Pain in thoracic spine M54.6 ; Other chronic pain G89.29 ; Cervicalgia M54.2 ; Radicular low back pain M54.10 ; Severe episode of recurrent major depressive disorder, without psychotic features F33.2 and High risk medication use Z79.899 [facility] [address]005[address]100[place] 40[address] Oct, [facility] [address] [id number] [place] [id number] Sep, Scoliosis of thoracolumbar spine, unspecified scoliosis type M41.9 ; Muscle spasm M62.838 ; Thyroid nodule E04.1 ; Pain in thoracic spine M54.6 ; Other chronic pain G89.29 ; Cervicalgia M54.2 ; Controlled substance agreement signed Z79.899 ; Vaginal yeast infection B37.3 and Radicular low back pain M54.10 [facility] [id number] [place] [address] [id number] Sep, Scoliosis of thoracolumbar spine, unspecified scoliosis type M41.9 and Muscle spasm M62.838 [id number] [place] [address] [id number] Sep, Severe episode of recurrent major depressive disorder, without psychotic features F33.[address] [id number] Aug, Severe episode of recurrent major depressive disorder, without psychotic features F33.2 ; Thyroid nodule E04.1 ; Constipation, chronic K59.09 and Non morbid obesity due to excess calories E66.09 [id number] [place] [address] [id number] Aug, Non morbid obesity due to excess calories E66.09 and Thyroid nodule E04.[address] [id number] Aug, [address] [id number] Jul, Severe episode of recurrent major depressive disorder, without psychotic features F33.2 ; Thyroid nodule E04.1 ; Constipation, chronic K59.09 and Non morbid obesity due to excess calories E66.09 [id number] [place] [address] [id number] June, Sore throat J02.9 and Major depressive disorder, single episode, unspecified F32.9 [facility] [address] [address] May, [facility] [address] [address]- [address] May, [facility] [address] [address]- [address] 14 Mar, 2013 [facility] [address] [id number] [place] [address]- 6[address] 14 Mar, 2013 [facility] [address] [id number] [place] [address]- 4056 06 Mar, 2013 [facility] [address] [facility] [id number] [place] [address]- 30[address] Mar, [facility] [address] [id number] [place] [address]- 2312 Jan, [facility] [address] [id number] [place] [address]- 6466 Jan, [facility] [address] [id number] [place] [address]- 4397 Jan, [facility] [address] [facility] [id number] [place] [address]- 3816 Jan, [facility] [address] [id number] [place] [address]- 4432 Jan, [facility] [address] [facility] [id number] [place] [address]- 8136 Jan, [facility] [address] [facility] [id number] [place] [address]- 3799 Jan, [facility] [address] [facility] [id number] [place] [address]- 0956 Jan, [facility] [place] [facility] [address] [id number] [place] [address]- 0433 Dec, [facility] [place] [facility] [address] [id number] [place] [address]- 9778 Dec, [facility] [place] [facility] [address] [facility] [id number] [place] [address]- 2106 Apr, [facility] [place] [facility] [address] [facility] [id number] [place] [address]- 5607 Jan, [facility] [place] [facility] [address] [id number] [place] [address]- 9563 Jan, [facility] [place] [facility] [address] [id number] [place] [address]- 6894 Dec, [facility] [place] [facility] [address] [id number] [place] [address]- 1673 Dec, [facility] [place] [facility] [address] [facility] [id number] [place]456[place]- 379[address] Nov, [facility] [place] [facility] [address] [id number] [place] [address]- 2984 Nov, [facility] [place] [facility] [address] [facility] [id number] [place] [address]- 9898 Sep, [facility] [place] [facility] [address] [facility] [id number] [place] [address]- 3462 Sep, [facility] [place] [address] [facility] [id number] [place] [id number] Sep, [facility] [place] [address] [facility] [id number] [place] [id number] Sep, [facility] [place] [facility] [address] [facility] [id number] [place] [address] Sep, [facility] [place] [facility] [address] [facility] [id number] [place] [address] Sep, [facility] [address] [facility] [id number] [place] [id number] Aug, [facility] [place] [facility] [address] [facility] [id number] [place] [address] Aug, [facility] [place] [facility] [address] [facility] [id number] [place] [address] Aug, [facility] [place] [facility] [address] [facility] [id number] [place] [address] Aug, [facility] [address] [facility] [id number] [place] [id number] Jul, [facility] [place] [facility] [address] [id number] [place] [address] 28 Jul, 2011 [facility] [place] [facility] [address] [id number] [place] [address] Jul, [facility] [place] [facility] [address] [id number] [place] [address] Jul, [facility] [place] [facility] [address] [facility] [id number] [place] [address] May, [facility] [place] [facility] [address] [id number] [place] [address] Feb, [facility] [place] [facility] [address] [facility] [id number] [place] [address], [place] [address] Jan, [facility] [place] [facility] [address] [facility] [id number] [place] [address] Jan, [facility] [place] [facility] [address] [facility] [id number] [place] [address] Dec, [facility] [place] [facility] [address] [facility] [id number] [place] [address] Dec, [facility] [place] [facility] [address] [facility] [id number] [place] [address] Dec, [facility] [place] [facility] [address] [facility] [id number] [place] [address] Nov, [facility] [place] [facility] [address] [facility] [id number] [place] [address] Nov, [facility] [place] [facility] [address] [facility] [id number] [place] [address] Sep, [facility] [place] [facility] [address] [facility] [id number] [place] [address] Jul, [facility] [place] [facility] [address] [facility] [id number] [place] [address] Mar, [facility] [place] [facility] [address] [facility] [id number] [place] [address] Nov, [facility] [address] [facility] [id number] [place] [address] Nov, IMMUNIZATIONS No Known Immunizations SOCIAL HISTORY Never Assessed REASON FOR VISIT Medication PLAN OF CARE VITAL SIGNS MEDICATIONS Unknown Medications RESULTS No Results PROCEDURES No Known procedures INSTRUCTIONS MEDICATIONS ADMINISTERED No Known Medications MEDICAL (GENERAL) HISTORY Type Description Date Medical History Fibromyalgia Medical History Chronic Consipation Medical History 08/16/16 [facility] general surgery center, Dr. Jimenez, hemorrhage [...] Medical History MRI- Brain 05/29/2017 Medical History [place] Spotted Tick Fever Medical History Ebstein Feng Virus Surgical History hysterectomy, total with unilateral salpingo-oophorectomy ( USO) Surgical History cholecystectomy Surgical History tonsillectomy and adenoidectomy Surgical History hemorrhoidectomy Surgical History EGD Surgical History colonoscopy 08/25/16 Hospitalization History fever, HTN, abnormal head [facility] 05/28/17
--- OUTSIDE RECORDS SUMMARY | 2017-11-06 12:28 | XMS REPORT ---
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 Name Role Phone MICHAEL CORREIA Unavailable PROBLEMS Type Condition ICD9-CM Code SYK42-OW Code Onset Dates Condition Status SNOMED Code Problem Major depressive disorder, single episode, unspecified F32.9 Active 69607714 Problem Thyroid nodule E04.1 Active 88695712 Problem Severe single current episode of major depressive disorder, without psychotic features F32.2 Active 46168288 Problem Severe episode of recurrent major depressive disorder, without psychotic features F33.2 Active 995208565601 Problem Chronic tension-type headache, intractable G44.221 Active 319924742 Problem Constipation, chronic K59.09 Active 859536933 Problem Essential hypertension I10 Active 41782537 Problem Non morbid obesity due to excess calories E66.09 Active 398856703 Problem 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 Active 196838399 Problem RMSF (S[place] spotted 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 Active 928170037 Problem Abnormal brain MRI R90.89 Active 171548956 Problem Abnormal mammogram of left breast R92.8 Active 295267916 Problem Diarrhea, unspecified type R19.7 Active 06045823 Problem Controlled substance agreement signed Z79.899 Active 575583674 Problem Other chronic pain G89.29 Active 219244909 Problem Scoliosis of thoracolumbar spine, unspecified scoliosis type M41.9 Active 438138916 Problem 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 Active 273030477 Problem Recurrent fever A68.9 Active 992438133 Problem Epigastric abdominal pain R10.13 Active 23907851 Problem Abnormal mammogram R92.8 Active 937611281 Problem Pain in thoracic spine M54.6 Active 508230351240727 Problem Cervicalgia M54.2 Active 2211769585209 Problem Radicular low back pain M54.10 Active 54687232 Problem Muscle spasm M62.838 Active 99300180 Problem Other chronic pain G89.29 Active 276539104 Problem Fibromyalgia M79.7 Active 789863311 Problem Anxiety F41.9 Active 096420872 Problem Acute bilateral low back pain with sciatica, sciatica laterality unspecified M54.40 Active 760443665 ALLERGIES No Information ENCOUNTERS Encounter Location Date Diagnosis [facility] [address] [id number] [id number] Sep, [facility] [address] [address] Sep, [facility] [address] [id number][place] [id number] Sep, [facility] [address] [id number] [address] Sep, Fibromyalgia M79.7 [facility] [address] [id number][place] [id number] Sep, Epigastric abdominal pain R10.13 and Diarrhea, unspecified type R19.7 [facility] [id number][place] [id number] Sep, Abnormal mammogram of left breast R92.8 [facility] [id number], [place] [id number] Sep, Abnormal mammogram R92.8 [facility] [id number], [place] [address] Sep, [facility] [id number] [place] [address] [id number] Aug, Abnormal mammogram R92.8 [facility] [address] [id number][place] [id number] Aug, [facility] [address] [id number] [place] [address] [id number] Aug, [facility] [id number], [place] [phone] Aug, Screening breast examination Z12.31 and At risk for bone density loss Z91.89 [facility] [place] [address] [id number][place] [id number] Aug, [facility] [place] [address] [id number] [place] [id number] Aug, [facility] [place] [address] [id number] [place] [id number] Aug, Other chronic pain G89.29 [facility] [place] [address] [id number], [place] [id number] Aug, [facility] [place] [address] [id number], [place] [id number] Aug, [facility] [place] [address] [id number] [place] [id number] Aug, [facility] [place] [address] [id number] [place] [address]24[address] Aug, Fibromyalgia M79.7 ; Anxiety F41.9 ; High risk medication use Z79.899 ; Other chronic pain G89.29 ; Recurrent fever A68.9 ; 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 and RMSF ([place] spotted 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 [facility] [place] [address] [id number], [place] 517859802 Jul, [facility] [place] [address] [id number], [place] [id number] Jul, [facility] [place] [address] [id number], [place] [id number] Jul, Muscle spasm M62.838 and Anxiety F41.9 [facility] [place] [address] [id number], [place] 978493059 Jul, [facility] [place] [address] [id number], [place] [id number] Jul, [facility] [place] [address] [id number], [place] 263234700 Jul, [facility] [address] [id number], [place] 313081641 Jul, [facility] [place] [address] [id number], [place] 742344116 Jul, [facility] [place] [address] [id number], [place] 716879045 Jul, [facility] [place] [address] [id number] [place] [id number] Jul, [facility] [place] [address] [id number] [place] 694347794 Jul, [facility] [place] [address] [id number] [place] [id number] Jul, [facility] [place] [address] [id number] [place] 040957608 Jul, [facility] [place] [address] [id number] [place] 221335573 Jul, Radicular low back pain M54.10 ; Other chronic pain G89.29 and Fibromyalgia M79.7 [facility] [place] [address] [id number] [place] [id number] Jul, [facility] [place] [address] [id number] [place] 015375927 Jul, [facility] [place] [address] [id number], [place] 689227087 Jul, [facility] [place] [address] [id number] [place] [phone] June, [facility] [place] [address] [id number], [place] [id number] June, [facility] [place] [address] [id number] [place] [phone] June, 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 ; Recurrent fever A68.9 ; Other chronic pain G89.29 ; Radicular low back pain M54.10 ; Chronic tension- type headache, intractable G44.221 ; Essential hypertension I10 ; RMSF (Seville spotted 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 and Abnormal brain MRI R90.89 [facility] [place] [address] [id number], [place] [id number] June, [facility] [address] [id number] [id number] June, 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 and RMSF (Seville spotted 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 [facility] [place] [address] [id number] [place] [id number] June, [facility] [place] [address] [id number] [place] [phone] June, [facility] [place] [id number] [place] [address] [id number] June, RMSF (Seville spotted 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 and 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 [facility] [place] [id number] [place] [address] [id number] June, [facility] [place] [address] [id number] [place] [address] [id number] June, [facility] [place] [id number] [place] [address] [id number] June, [facility] [id number] [place] [address] June, [facility] [place] [id number] [place] [address] [id number] June, [facility] [id number] [place] [address] June, Radicular low back pain M54.10 and Scoliosis of thoracolumbar spine, unspecified scoliosis type M41.9 [facility] [place] [address] [id number], [place] [id number] June, [facility] [place] [id number], [place] 560735085 June, [facility] [place] [address] [id number], [place] [id number] June, [facility] [place] [address] [id number], [place] [id number] June, [facility] [place] [id number] [place] [address] [id number] June, RMSF (Seville spotted 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 [facility] [place] [address] [id number], [place] [id number] June, [facility] [place] [address] [id number], [place] [id number] June, Muscle spasm M62.838 [facility] [id number], [place] [id number] June, [facility] [id number] [place] [address] [id number] May, [facility] [id number], [place] 834134590 May, [facility] [id number] [place] [address] [id number] May, [facility] [address] [id number], [place] [id number] May, RMSF (Seville spotted 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 [facility] [address] [id number], [place] [id number] May, Essential hypertension I10 [facility] [address]00565100[place], [place] [address] May, [facility] [id number] [place] [address] [id number] May, Other chronic pain G89.29 [facility] [id number] [place] [address] [id number] May, [facility] [id number] [place] [address] [id number] May, [facility] [id number] [place] [address] [id number] May, [facility] [id number] [place] [address] [id number] May, [facility] [id number], [place] [id number] May, RMSF (Seville spotted 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 ; Nausea R11.0 ; [...] depressive disorder, single episode, unspecified F32.9 [facility] [address] [id number] [place] [address] May, Seville spotted fever A77.0 [facility] [place] [address] [id number] [place] [id number] May, [facility] [place] [address] [id number] [place] [id number] May, [facility] [address] [id number] [place] [address]- 6[address] May, [facility] [place] [address] [id number] [place] [id number] May, [facility] [place] [address] [id number] [place] 892167214 May, [facility] [place] [address] [id number] [place] 340802074 May, [facility] [place] [address] [id number] [place] 564626082 May, [facility] [place] [address] [id number] [place] [id number] May, [facility] [place] [address] [id number] [place] [id number] May, [facility] [place] [address] [id number] [place] [id number] May, [facility] [place] [address] [id number] [place] [id number] May, [facility] [place] [address] [id number] [place] [id number] May, [facility] [place] [address] [id number] [place] [id number] May, [facility] [place] [address] [id number] [place] [id number] May, [facility] [place] [address] [id number] [place] [id number] May, [facility] [place] [address] [id number] [place] 610833067 May, [facility] [place] [address] [id number], [place] 106418491 May, Radicular low back pain M54.10 ; Other chronic pain G89.29 ; Fibromyalgia M79.7 ; Cervicalgia M54.2 ; Pain in thoracic spine M54.6 and Scoliosis of thoracolumbar spine, unspecified scoliosis type M41.[address] [id number], [place] [id number] May, [facility] [id number], [place] [id number] Apr, Muscle spasm M62.838 [address] [place] [address] [id number] Apr, [id number] [place] [address] [id number] Apr, Fibromyalgia M79.7 ; Muscle spasm M62.838 ; Other chronic pain G89.29 ; Vision changes H53.9 ; Headache above the eye region R51 ; Major depressive disorder, single episode, unspecified F32.9 ; Neck pain M54.2 and Thyroid nodule E04.[address]00565100[place], [place] [id number] Apr, Other chronic pain G89.29 [address] [place] [address] [id number] Apr, Chronic tension-type headache, intractable G44.221 [address] [place] [address] [id number] Mar, Other chronic pain G89.29 ; Scoliosis of thoracolumbar spine, unspecified scoliosis type M41.9 ; Muscle spasm M62.838 ; Other chronic pain G89.29 ; Headache above the eye region R51 ; Hospital discharge follow-up Z09 ; Lumbar back pain with radiculopathy affecting right lower extremity M54.17 ; Lumbar back pain with radiculopathy affecting left lower extremity M54.17 and Myalgia M79.1 [address]00565100[place], [place] [id number] Mar, [id number] [place] [address] [id number] 14 Mar, 2017 Other chronic pain G89.29 [facility] [id number] [place] [address] [id number] 14 Mar, 2017 Radicular low back pain M54.10 [facility] [id number] [place] [address] [id number] Feb, [place] [id number] [place] [address] [id number] Feb, [facility] [id number] [place] [address] [id number] Feb, Muscle spasm M62.838 [place] [id number] [place] [address] [id number] Feb, Itching L29.9 and Acute bilateral back pain, unspecified back location M54.9 [place] [id number] [place] [address] [id number] Feb, History of pneumonia Z87.01 ; Cough R05 ; Radicular low back pain M54.10 ; Scoliosis of thoracolumbar spine, unspecified scoliosis type M41.9 ; Elevated liver enzymes R74.8 ; Influenza J11.1 ; Severe single current episode of major depressive disorder, without psychotic features F32.2 and Stressful life events affecting family and household Z63.79 [place] [id number] [place] [address] [id number] Jan, Muscle spasm M62.838 [place] [id number] [place] [address] [id number] Jan, Post-nasal drainage R09.82 ; Anxiety F41.9 and Cough R05 [place] [id number] [place] [address] [id number] Jan, Severe episode of recurrent major depressive disorder, without psychotic features F33.[address] [place] [address] [id number] Jan, Muscle spasm M62.838 [place] [id number] [place] [address] [id number] Jan, Acute recurrent maxillary sinusitis J01.01 and Breast tenderness in female N64.4 [facility] [id number], [place] [id number] Nov, [facility] [id number] [place] [address] [id number] Nov, [facility] [id number] [place] [address] [id number] Nov, Radicular low back pain M54.10 and Muscle spasm M62.838 [facility] [id number] [place] [address] [id number] Nov, [place] [id number] [place] [address] [id number] Nov, Viral disease B34.9 ; Fever, unspecified fever cause R50.9 ; Other fatigue R53.83 and Other malaise R53.81 [facility] [id number] [place] [address] [id number] Nov, Thyroid nodule E04.1 [place] [id number] [place] [address] [id number] Nov, Severe episode of recurrent major depressive disorder, without psychotic features F33.[address] [place] [address] [id number] Nov, Acute nasopharyngitis J00 [address] [place] [address] [id number] Oct, Scoliosis of thoracolumbar spine, unspecified scoliosis type M41.9 ; Muscle spasm M62.838 ; Thyroid nodule E04.1 ; Pain in thoracic spine M54.6 ; Other chronic pain G89.29 ; Cervicalgia M54.2 ; Radicular low back pain M54.10 ; Severe episode of recurrent major depressive disorder, without psychotic features F33.2 and High risk medication use Z79.899 [facility] [address]00565100[place], [place] 96733370- [address] Oct, [facility] [address] [id number], [place] [id number] Sep, Scoliosis of thoracolumbar spine, unspecified scoliosis type M41.9 ; Muscle spasm M62.838 ; Thyroid nodule E04.1 ; Pain in thoracic spine M54.6 ; Other chronic pain G89.29 ; Cervicalgia M54.2 ; Controlled substance agreement signed Z79.899 ; Vaginal yeast infection B37.3 and Radicular low back pain M54.10 [facility] [id number] [place] [address] [id number] Sep, Scoliosis of thoracolumbar spine, unspecified scoliosis type M41.9 and Muscle spasm M62.838 [id number] [place] [address] [id number] Sep, Severe episode of recurrent major depressive disorder, without psychotic features F33.[address] [id number] Aug, Severe episode of recurrent major depressive disorder, without psychotic features F33.2 ; Thyroid nodule E04.1 ; Constipation, chronic K59.09 and Non morbid obesity due to excess calories E66.09 [place] [id number] [place] [address] [id number] Aug, Non morbid obesity due to excess calories E66.09 and Thyroid nodule E04.[address] [id number] Aug, [address] [id number] Jul, Severe episode of recurrent major depressive disorder, without psychotic features F33.2 ; Thyroid nodule E04.1 ; Constipation, chronic K59.09 and Non morbid obesity due to excess calories E66.09 [place] [address] [id number] [place] [address] [id number] June, Sore throat J02.9 and Major depressive disorder, single episode, unspecified F32.9 [facility] [address] [address]- [address] May, [facility] [address] [address]- 3868 May, [facility] [address] [address]- 0861 14 Mar, 2013 [facility] [address] [id number] [place] [address]- 7986 14 Mar, 2013 [facility] [address] [id number] [place] [address]- 9026 06 Mar, 2013 [facility] [address] [facility] [id number] [place] [address]- 8236 Mar, [facility] [address] [id number] [place] [address]- 7591 Jan, [facility] [address] [id number] [place] [address]- 5938 Jan, [facility] [address] [id number] [place] [address]- 5463 Jan, [facility] [address] [facility] [id number] [place] [address]- 0606 Jan, [facility] [address] [id number] [place] [address]- 5120 Jan, [facility] [address] [facility] [id number] [place] [address]- 1521 Jan, [facility] [address] [facility] [id number] [place] [address]- 5203 Jan, [facility] [address] [facility] [id number] [place] [address]- 0634 Jan, [facility] [place] [facility] [address] [id number] [place] [address]- 0300 Dec, [facility] [place] [facility] [address] [id number] [place] [address]- 0795 Dec, [facility] [place] [facility] [address] [facility] [id number] [place] [address]- 4878 Apr, [facility] [place] [facility] [address] [facility] [id number] [place] [address]- 8845 Jan, [facility] [place] [facility] [address] [id number] [place] [address]- 1533 Jan, [facility] [place] [facility] [address] [id number] [place] [address]- 4405 Dec, [facility] [place] [facility] [address] [id number] [place] [address]- 9696 Dec, [facility] [place] [facility] [address] [facility] [id number] [place] 285167- 1022 Nov, [facility] [place] [facility] [address] [id number] [place] [address]- 1595 Nov, [facility] [place] [facility] [address] [facility] [id number] [place] [address]- 1723 Sep, [facility] [place] [facility] [address] [facility] [id number] [place] [address]- 6580 Sep, [facility] [place] [address] [facility] [id number] [id number] Sep, [facility] [place] [address] [facility] [id number][place] [id number] Sep, [facility] [place] [facility] [address] [facility] [id number] [place] [address]- 3423 Sep, [facility] [place] [facility] [address] [facility] [id number][place] [address]- 1538 Sep, [facility] [place] [address] [facility] [id number][place] [id number] Aug, [facility] [place] [facility] [address] [facility] [id number], [place] [address] Aug, [facility] [place] [facility] [address] [facility] [id number] [place] [address] Aug, [facility] [place] [facility] [address] [facility] [id number] [place] [address] Aug, [facility] [address] [facility] [id number][place] [id number] Jul, [facility] [place] [facility] [address] [id number] [place] [address] 28 Jul, 2011 [facility] [place] [facility] [address] [id number] [place] [address] Jul, [facility] [place] [facility] [address] [id number] [place] [address] Jul, [facility] [place] [facility] [address] [facility] [id number] [place] [address] May, [facility] [place] [facility] [address] [id number] [place] [address] Feb, [facility] [place] [facility] [address] [facility] [id number] [place] [address], [place] [address] Jan, [facility] [place] [facility] [address] [facility] [id number] [place] [address] Jan, [facility] [place] [facility] [address] [facility] [id number] [place] [address] Dec, [facility] [place] [facility] [address] [facility] [id number], [place] [address] Dec, [facility] [place] [facility] [address] [facility] [id number] [place] [address] Dec, [facility] [place] [facility] [address] [facility] [id number], [place] [address] Nov, [facility] [place] [facility] [address] [facility] [id number] [place] [address] Nov, [facility] [place] [facility] [address] [facility] [id number], [place] [address] Sep, [facility] [place] [facility] [address] [facility] [id number], [place] [address] Jul, [facility] [place] [facility] [address] [facility] [id number], [place] [address] Mar, [facility] [place] [facility] [address] [facility] [id number], [place] [address] Nov, [facility] [address] [facility] [id number] [place] [address] Nov, IMMUNIZATIONS No Known Immunizations SOCIAL HISTORY Never Assessed REASON FOR VISIT Re: RE:Medication PLAN OF CARE VITAL SIGNS MEDICATIONS Unknown Medications RESULTS No Results PROCEDURES No Known procedures INSTRUCTIONS MEDICATIONS ADMINISTERED No Known Medications MEDICAL (GENERAL) HISTORY Type Description Date Medical History Fibromyalgia Medical History Chronic Consipation Medical History 08/16/16 [facility] general surgery center, Dr. Jimenez, [...] Medical History MRI- Brain 05/29/2017 Medical History [place] Spotted Tick Fever Medical History Ebstein Feng Virus Surgical History hysterectomy, total with unilateral salpingo-oophorectomy ( USO) Surgical History cholecystectomy Surgical History tonsillectomy and adenoidectomy Surgical History hemorrhoidectomy Surgical History EGD Surgical History colonoscopy 08/25/16 Hospitalization History fever, HTN, abnormal head [facility] 05/28/17
--- OUTSIDE RECORDS SUMMARY | 2017-11-06 12:29 | XMS REPORT ---
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 Name Role Phone MICHAEL CORREIA Unavailable PROBLEMS Type Condition ICD9-CM Code VSJ39-GD Code Onset Dates Condition Status SNOMED Code Problem Major depressive disorder, single episode, unspecified F32.9 Active 56308315 Problem Thyroid nodule E04.1 Active 73610347 Problem Severe single current episode of major depressive disorder, without psychotic features F32.2 Active 97211070 Problem Severe episode of recurrent major depressive disorder, without psychotic features F33.2 Active 801428071190 Problem Chronic tension-type headache, intractable G44.221 Active 803297491 Problem Constipation, chronic K59.09 Active 008363689 Problem Essential hypertension I10 Active 98730818 Problem Non morbid obesity due to excess calories E66.09 Active 172401429 Problem 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 Active 233389447 Problem RMSF (Matlacha spotted 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 Active 760663239 Problem Abnormal brain MRI R90.89 Active 565367230 Problem Abnormal mammogram of left breast R92.8 Active 716877167 Problem Diarrhea, unspecified type R19.7 Active 61743307 Problem Controlled substance agreement signed Z79.899 Active 824801632 Problem Other chronic pain G89.29 Active 245496779 Problem Scoliosis of thoracolumbar spine, unspecified scoliosis type M41.9 Active 837497733 Problem 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 Active 427649687 Problem Recurrent fever A68.9 Active 163127998 Problem Epigastric abdominal pain R10.13 Active 64626897 Problem Abnormal mammogram R92.8 Active 302446159 Problem Pain in thoracic spine M54.6 Active 891650692883365 Problem Cervicalgia M54.2 Active 1133862683144 Problem Radicular low back pain M54.10 Active 68080568 Problem Muscle spasm M62.838 Active 16080427 Problem Other chronic pain G89.29 Active 315626548 Problem Fibromyalgia M79.7 Active 134298019 Problem Anxiety F41.9 Active 355195403 Problem Acute bilateral low back pain with sciatica, sciatica laterality unspecified M54.40 Active 820901492 ALLERGIES No Information ENCOUNTERS Encounter Location Date Diagnosis [facility] [id number] [id number] Sep, [facility] [address] [id number] [id number] Sep, [facility] [id number] [place] [address]- [address] Sep, Fibromyalgia M79.7 [facility] [address] [id number][place] [address]0092 Sep, Epigastric abdominal pain R10.13 and Diarrhea, unspecified type R19.7 [facility] [id number] [place] [address] [id number] Sep, Abnormal mammogram of left breast R92.8 [facility] [id number] [place] [address] [phone] Sep, Abnormal mammogram R92.8 [facility] [id number] [place] [address] [id number] Sep, [facility] [id number] [place] [address] [id number] Aug, Abnormal mammogram R92.8 [facility] [address] [id number] [place] [address] [id number] Aug, [facility] [place] [address] [id number] [place] [address] [id number] Aug, [facility] [id number] [place] [address] [id number] Aug, Screening breast examination Z12.31 and At risk for bone density loss Z91.89 [facility] [id number] [place] [address] [id number] Aug, [facility] [address] [id number], [place] [id number] Aug, [facility] [place] [address] [id number], [place] [phone] Aug, Other chronic pain G89.29 [facility] [place] [address] [id number][place] [id number] Aug, [facility] [place] [address] [id number], [place] [phone] Aug, [facility] [place] [address] [id number], [place] [id number] Aug, [facility] [place] [id number], [place] [phone] Aug, Fibromyalgia M79.7 ; Anxiety F41.9 ; High risk medication use Z79.899 ; Other chronic pain G89.29 ; Recurrent fever A68.9 ; 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 and RMSF (Matlacha spotted 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 [facility] [place] [id number], [place] [id number] Jul, [facility] [place] [id number], [place] [id number] Jul, [facility] [place] [id number], [place] [id number] Jul, Muscle spasm M62.838 and Anxiety F41.9 [facility] [place] [id number], [place] [id number] Jul, [facility] [place] [id number], [place] [phone] Jul, [facility] [place] [id number], [place] [phone] Jul, [facility] [address] [id number], [place] [phone] Jul, [facility] [place] [address] [facility] [id number], [place] [id number] Jul, [facility] [place] [id number], [place] [id number] Jul, [facility] [place] [id number], [place] [phone] Jul, [facility] [place] [address] [id number] [place] [phone] Jul, [facility] [place] [address] [id number] [place] [phone] Jul, [facility] [place] [address] [id number] [place] [phone] Jul, [facility] [place] [address] [id number] [place] [id number] Jul, Radicular low back pain M54.10 ; Other chronic pain G89.29 and Fibromyalgia M79.7 [facility] [place] [address] [id number] [place] [phone] Jul, [facility] [place] [address] [id number] [place] [phone] Jul, [facility] [place] [address] [id number] [place] [phone] Jul, [facility] [place] [address] [id number] [place] [phone] June, [facility] [place] [address] [id number], [place] [phone] June, [facility] [place] [address] [id number], [place] [phone] June, 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 ; Recurrent fever A68.9 ; Other chronic pain G89.29 ; Radicular low back pain M54.10 ; Chronic tension- type headache, intractable G44.221 ; Essential hypertension I10 ; RMSF (Matlacha spotted 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 and Abnormal brain MRI R90.89 [facility] [place] [address] [id number], [place] [phone] June, [facility] [address] [id number], [place] [phone] June, 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 and RMSF (Matlacha spotted 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 [facility] [place] [address] [id number], [place] [phone] June, [facility] [place] [address] [id number], [place] [id number] June, [facility] [place] [id number] [place] [address] [id number] June, RMSF (Matlacha spotted 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 and 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 [facility] [place] [address] [id number], [place] [phone] June, [facility] [place] [id number] [place] [address] [id number] June, [facility] [place] [id number] [place] [address] [id number] June, [facility] [id number] [place] [address]- [address] June, [facility] [place] [id number] [place] [address] [id number] June, [facility] [id number] [place] [address]- [address] June, Radicular low back pain M54.10 and Scoliosis of thoracolumbar spine, unspecified scoliosis type M41.9 [facility] [place] [address] [id number] [place] [address] [id number] June, [facility] [place] [id number] [place] [address] [id number] June, [facility] [place] [id number], [place] [phone] June, [facility] [place] [id number] [place] [address] [id number] June, [facility] [place] [id number], [place] [phone] June, RMSF (Matlacha spotted 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 [facility] [place] [id number] [place] [address] [phone] June, [facility] [place] [address] [id number], [place] [id number] June, Muscle spasm M62.838 [facility] [place] [address] [id number] [place] [address] [id number] June, [facility] [place] [id number], [place] [id number] May, [facility] [place] [id number] [place] [address] [id number] May, [facility] [place] [address] [id number], [place] [id number] May, [facility] [address] [id number], [place] [id number] May, RMSF (Matlacha spotted 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 [facility] [address] [id number], [place] [phone] May, Essential hypertension I10 [facility] [address] [address]- [address] May, [facility] [place] [id number] [place] [address] [id number] May, Other chronic pain G89.29 [facility] [place] [id number] [place] [address] [id number] May, [facility] [place] [id number] [place] [address] [id number] May, [facility] [place] [id number] [place] [address] [id number] May, [facility] [place] [id number] [place] [address] [id number] May, [facility] [place] [id number] [place] [address] [id number] May, RMSF (Matlacha spotted 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 ; Nausea R11.0 ; [...] Major depressive disorder, single episode, unspecified F32.9 [facility] [id number] [place] [address] 89846- 0796 May, Matlacha spotted fever A77.0 [facility] [place] [address] [id number] [place] [id number] May, [facility] [place] [address] [id number] [place] [id number] May, [facility] [address] [facility] [id number] [place] [address]- [address] May, [facility] [place] [address] [id number] [place] [phone] May, [facility] [place] [address] [id number] [place] [id number] May, [facility] [place] [address] [id number] [place] [id number] May, [facility] [place] [address] [id number] [place] [phone] May, [facility] [place] [address] [id number] [place] [id number] May, [facility] [place] [address] [id number] [place] [id number] May, [facility] [place] [address] [id number] [place] [id number] May, [facility] [place] [address] [id number] [place] [id number] May, [facility] [place] [address] [id number] [place] [id number] May, [facility] [place] [address] [id number] [place] [id number] May, [facility] [place] [address] [id number] [place] [id number] May, [facility] [place] [address] [id number] [place] [id number] May, [facility] [place] [address] [id number] [place] [id number] May, [facility] [place] [address] [id number] [place] [id number] May, Radicular low back pain M54.10 ; Other chronic pain G89.29 ; Fibromyalgia M79.7 ; Cervicalgia M54.2 ; Pain in thoracic spine M54.6 and Scoliosis of thoracolumbar spine, unspecified scoliosis type M41.[address] [id number], [place] [id number] May, [facility] [address] [facility] [id number], [place] [phone] Apr, Muscle spasm M62.[address] [id number], [place] [id number] Apr, [address] [id number], [place] [id number] Apr, Fibromyalgia M79.7 ; Muscle spasm M62.838 ; Other chronic pain G89.29 ; Vision changes H53.9 ; Headache above the eye region R51 ; Major depressive disorder, single episode, unspecified F32.9 ; Neck pain M54.2 and Thyroid nodule E04.[address] [id number], [place] [id number] Apr, Other chronic pain G89.[address] [id number], [place] [id number] Apr, Chronic tension-type headache, intractable G44.221 [address] [place] [address] [id number] Mar, Other chronic pain G89.29 ; Scoliosis of thoracolumbar spine, unspecified scoliosis type M41.9 ; Muscle spasm M62.838 ; Other chronic pain G89.29 ; Headache above the eye region R51 ; Hospital discharge follow-up Z09 ; Lumbar back pain with radiculopathy affecting right lower extremity M54.17 ; Lumbar back pain with radiculopathy affecting left lower extremity M54.17 and Myalgia M79.1 [address] [facility] [id number], [place] [id number] Mar, [address] [id number], [place] [id number] Mar, Other chronic pain G89.29 [id number] [place] [address] [id number] 14 Mar, 2017 Radicular low back pain M54.10 [place] [id number] [place] [address] [id number] Feb, [address] [id number] [place] [address] [id number] Feb, [address] [id number] [place] [address] [id number] Feb, Muscle spasm M62.838 [id number] [place] [address] [id number] Feb, Itching L29.9 and Acute bilateral back pain, unspecified back location M54.9 [id number] [place] [address] [id number] Feb, History of pneumonia Z87.01 ; Cough R05 ; Radicular low back pain M54.10 ; Scoliosis of thoracolumbar spine, unspecified scoliosis type M41.9 ; Elevated liver enzymes R74.8 ; Influenza J11.1 ; Severe single current episode of major depressive disorder, without psychotic features F32.2 and Stressful life events affecting family and household Z63.79 [address] [id number] [place] [address] [id number] Jan, Muscle spasm M62.838 [address] [id number] [place] [address] [id number] Jan, Post-nasal drainage R09.82 ; Anxiety F41.9 and Cough R05 [address] [place] [address] [id number] Jan, Severe episode of recurrent major depressive disorder, without psychotic features F33.2 [address] [place] [address] [id number] Jan, Muscle spasm M62.838 [id number] [place] [address] [id number] Jan, Acute recurrent maxillary sinusitis J01.01 and Breast tenderness in female N64.4 [address] [id number] [place] [address] [id number] Nov, [facility] [id number], [place] [id number] Nov, [place] [id number] [place] [address] [id number] Nov, Radicular low back pain M54.10 and Muscle spasm M62.838 [place] [id number] [place] [address] [id number] Nov, [address] [id number] [place] [address] [id number] Nov, Viral disease B34.9 ; Fever, unspecified fever cause R50.9 ; Other fatigue R53.83 and Other malaise R53.81 [address] [address] [place] [address] [id number] Nov, Thyroid nodule E04.1 [address] [address] [place] [address] [id number] Nov, Severe episode of recurrent major depressive disorder, without psychotic features F33.2 [address] [id number] [place] [address] [id number] Nov, Acute nasopharyngitis J00 [address] [place] [address] [id number] Oct, Scoliosis of thoracolumbar spine, unspecified scoliosis type M41.9 ; Muscle spasm M62.838 ; Thyroid nodule E04.1 ; Pain in thoracic spine M54.6 ; Other chronic pain G89.29 ; Cervicalgia M54.2 ; Radicular low back pain M54.10 ; Severe episode of recurrent major depressive disorder, without psychotic features F33.2 and High risk medication use Z79.899 [facility] [address]00565100[place], [place] [address]5866329- [address] Oct, [address] [place] [address] [id number] Sep, Scoliosis of thoracolumbar spine, unspecified scoliosis type M41.9 ; Muscle spasm M62.838 ; Thyroid nodule E04.1 ; Pain in thoracic spine M54.6 ; Other chronic pain G89.29 ; Cervicalgia M54.2 ; Controlled substance agreement signed Z79.899 ; Vaginal yeast infection B37.3 and Radicular low back pain M54.10 [facility] [id number] [place] [address] [id number] Sep, Scoliosis of thoracolumbar spine, unspecified scoliosis type M41.9 and Muscle spasm M62.838 [id number] [place] [address] [id number] Sep, Severe episode of recurrent major depressive disorder, without psychotic features F33.2 [facility] [id number] [place] [address] [id number] Aug, Severe episode of recurrent major depressive disorder, without psychotic features F33.2 ; Thyroid nodule E04.1 ; Constipation, chronic K59.09 and Non morbid obesity due to excess calories E66.09 [id number] [place] [address] [id number] Aug, Non morbid obesity due to excess calories E66.09 and Thyroid nodule E04.1 [facility] [id number] [place] [address] [id number] Aug, [place] [id number] [place] [address] [id number] Jul, Severe episode of recurrent major depressive disorder, without psychotic features F33.2 ; Thyroid nodule E04.1 ; Constipation, chronic K59.09 and Non morbid obesity due to excess calories E66.09 [address] [place] [address] [id number] June, Sore throat J02.9 and Major depressive disorder, single episode, unspecified F32.9 [facility] [id number] [place] [address] 70841- 5117 May, [facility] [address] [address]- [address]343 May, [facility] [id number] [place] [address] 16334- 3229 Mar, [facility] [address] 9[address]01- 9599 14 Mar, 2013 [facility] [address] [id number] [place] [address]- 3576 Mar, [facility] [address] [id number] [place] [address]- 1516 06 Mar, 2013 [facility] [address] [id number] [place] [address]- 4256 Jan, [facility] [place] [facility] [address] [id number] [place] [address]- 6056 Jan, [facility] [address] [id number] [place] [address]- 2946 Jan, [facility] [address] [id number] [place] [address]- 3053 Jan, [facility] [address] [facility] [id number] [place] [address]- 2848 Jan, [facility] [address] [id number] [place] [address]- 7673 Jan, [facility] [address] [id number] [place] [address]- 7462 Jan, [facility] [address] [facility] [id number] [place] [address]- 1392 Jan, [facility] [address] [id number] [place] [address]- 8900 Dec, [facility] [place] [facility] [address] [id number] [place] [address]- 5778 Dec, [facility] [place] [facility] [address] [id number] [place] [address]- 7850 Apr, [facility] [place] [facility] [address] [id number] [place] [address]- 9677 Jan, [facility] [place] [facility] [address] [facility] [id number] [place] [address]- 5295 Jan, [facility] [place] [facility] [address] [id number] [place] [address]- 0175 Dec, [facility] [place] [facility] [address] [id number] [place] [address]- 0217 Dec, [facility] [place] [facility] [address] [id number] [place] [address]- 8470 Nov, [facility] [place] [facility] [address] [id number] [place] [address]- 9230 Nov, [facility] [place] [facility] [address] [id number] [place] [address]- 5729 Sep, [facility] [place] [facility] [address] [id number] [place] [address]- 2273 Sep, [facility] [place] [facility] [address] [facility] [id number], [place] [id number] Sep, [facility] [address] [id number], [place] [id number] Sep, [facility] [place] [facility] [address] [id number], [place] [address]- 5731 Sep, [facility] [place] [facility] [address] [facility] [id number], [place] [address]- 8788 Sep, [facility] [place] [address] [facility] [id number], [place] [id number] Aug, [facility] [place] [facility] [address] [id number], [place] [address]- 7599 Aug, [facility] [place] [facility] [address] [facility] [id number], [place] [address] Aug, [facility] [place] [facility] [address] [id number][place] [address] Aug, [facility] [address] [facility] [id number][place] [id number] Jul, [facility] [place] [facility] [address] [facility] [id number] [place] [address] Jul, [facility] [place] [facility] [address] [facility] [id number][place] [address] Jul, [facility] [address] [facility] [id number] [place] [address] Jul, [facility] [address] [facility] [id number] [place] [address] May, [facility] [address] [facility] [id number] [place] [address] Feb, [facility] [address] [facility] [id number] [place] [address] Jan, [facility] [address] [facility] [id number] [place] [address], [place] [address] Jan, [facility] [address] [facility] [id number] [place] [address] Dec, [facility] [id number] [place] [address] Dec, [facility] [address] [facility] [id number], [place] [address] Dec, [facility] [id number] Nov, [facility] [address] [facility] [id number][place] [address] Nov, [facility] [id number], [place] [address] Sep, [facility] [address] [facility] [id number], [place] [address] Jul, [facility] [address] [facility] [id number], [place] [address] Mar, [facility] [address] [facility] [id number], [place] [address] Nov, [facility] [address] [facility] [id number][place] [address] Nov, IMMUNIZATIONS No Known Immunizations SOCIAL HISTORY Never Assessed REASON FOR VISIT Medication PLAN OF CARE VITAL SIGNS MEDICATIONS Unknown Medications RESULTS No Results PROCEDURES No Known procedures INSTRUCTIONS MEDICATIONS ADMINISTERED No Known Medications MEDICAL (GENERAL) HISTORY Type Description Date Medical History Fibromyalgia Medical History Chronic Consipation Medical History 08/16/16 [facility] general surgery center, Dr. Jimenez, hemorrhage of [...] Medical History MRI- Brain 05/29/2017 Medical History [place] Spotted Tick Fever Medical History Ebstein Feng Virus Surgical History hysterectomy, total with unilateral salpingo-oophorectomy ( USO) Surgical History cholecystectomy Surgical History tonsillectomy and adenoidectomy Surgical History hemorrhoidectomy Surgical History EGD Surgical History colonoscopy 08/25/16 Hospitalization History fever, HTN, abnormal head [facility] 05/28/17
--- OUTSIDE RECORDS SUMMARY | 2017-11-06 12:29 | XMS REPORT ---
Author Author MICHAEL CORREIA Organization [facility] Address [address] [place] [address] Care Team Providers Care Survival Specialist Name Role Phone MICHAEL CORREIA Unavailable PROBLEMS Type Condition ICD9-CM Code UCP81-HC Code Onset Dates Condition Status SNOMED Code Problem Major depressive disorder, single episode, unspecified F32.9 Active 08885942 Problem Thyroid nodule E04.1 Active 11787331 Problem Severe single current episode of major depressive disorder, without psychotic features F32.2 Active 41350086 Problem Severe episode of recurrent major depressive disorder, without psychotic features F33.2 Active 957019037401 Problem Chronic tension-type headache, intractable G44.221 Active 173709583 Problem Constipation, chronic K59.09 Active 650916285 Problem Essential hypertension I10 Active 80534935 Problem Non morbid obesity due to excess calories E66.09 Active 138667022 Problem 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 Active 694149782 Problem RMSF ([place] spotted 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 Active 480341046 Problem Abnormal brain MRI R90.89 Active 089499372 Problem Abnormal mammogram of left breast R92.8 Active 474255251 Problem Diarrhea, unspecified type R19.7 Active 81007469 Problem Controlled substance agreement signed Z79.899 Active 926883006 Problem Other chronic pain G89.29 Active 464535855 Problem Scoliosis of thoracolumbar spine, unspecified scoliosis type M41.9 Active 385417123 Problem 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 Active 353547529 Problem Recurrent fever A68.9 Active 980599389 Problem Epigastric abdominal pain R10.13 Active 91346800 Problem Abnormal mammogram R92.8 Active 331905226 Problem Pain in thoracic spine M54.6 Active [id number] Problem Cervicalgia M54.2 Active 9572669892351 Problem Radicular low back pain M54.10 Active 81785315 Problem Muscle spasm M62.838 Active 37458287 Problem Other chronic pain G89.29 Active 059789656 Problem Fibromyalgia M79.7 Active 938377095 Problem Anxiety F41.9 Active 272532875 Problem Acute bilateral low back pain with sciatica, sciatica laterality unspecified M54.40 Active [id number] ALLERGIES No Information ENCOUNTERS Encounter Location Date Diagnosis [facility] [address] [id number] [id number] Sep, [facility] [address] [id number] Sep, [facility] [address] [facility] [address] [id number][place] [id number] Sep, [facility] [address] [id number] [address] Sep, Fibromyalgia M79.7 [facility] [address] [id number][place] [id number] Sep, Epigastric abdominal pain R10.13 and Diarrhea, unspecified type R19.7 [facility] [id number] [id number] Sep, Abnormal mammogram of left breast R92.8 [facility] [id number], [place] [id number] Sep, Abnormal mammogram R92.8 [facility] [id number], [place] [id number] Sep, [facility] [id number] [place] [address] [id number] Aug, Abnormal mammogram R92.8 [facility] [address] [id number][place] [id number] Aug, [facility] [address] [id number] [place] [address] [id number] Aug, [facility] [id number], [place] [address] Aug, Screening breast examination Z12.31 and At risk for bone density loss Z91.89 [facility] [place] [address] [id number], [place] [id number] Aug, [facility] [place] [address] [id number] [place] [id number] Aug, [facility] [place] [address] [id number] [place] [id number] Aug, Other chronic pain G89.29 [facility] [place] [address] [id number], [place] 958505074 Aug, [facility] [place] [address] [id number], [place] [id number] Aug, [facility] [place] [address] [id number] [place] [id number] Aug, [facility] [place] [address] [id number] [place] [id number] Aug, Fibromyalgia M79.7 ; Anxiety F41.9 ; High risk medication use Z79.899 ; Other chronic pain G89.29 ; Recurrent fever A68.9 ; 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 and RMSF ([place] spotted 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 [facility] [place] [address] [id number], [place] [id number] Jul, [facility] [place] [address] [id number], [place] [id number] Jul, [facility] [place] [address] [id number], [place] 648[address]4077 Jul, Muscle spasm M62.838 and Anxiety F41.9 [facility] [place] [address] [id number], [place] [id number] Jul, [facility] [place] [address] [id number], [place] [id number] Jul, [facility] [place] [address] [id number], [place] 25047[address] Jul, [facility] [address] [id number], [place] [id number] Jul, [facility] [place] [address] [id number], [place] [id number] Jul, [facility] [place] [address] [id number], [place] 376404696 Jul, [facility] [place] [address] [id number] [place] [id number] Jul, [facility] [place] [address] [id number] [place] [id number] Jul, [facility] [place] [address] [id number] [place] [id number] Jul, [facility] [place] [address] [id number] [place] [id number] Jul, [facility] [place] [address] [id number] [place] [id number] Jul, Radicular low back pain M54.10 ; Other chronic pain G89.29 and Fibromyalgia M79.7 [facility] [place] [address] [id number] [place] [id number] Jul, [facility] [place] [address] [id number] [place] [id number] Jul, [facility] [place] [address] [id number], [place] [id number] Jul, [facility] [place] [address] [id number] [place] [id number] June, [facility] [place] [address] [id number], [place] 911[address]191 June, [facility] [place] [address] [id number] [place] [id number] June, 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 ; Recurrent fever A68.9 ; Other chronic pain G89.29 ; Radicular low back pain M54.10 ; Chronic tension- type headache, intractable G44.221 ; Essential hypertension I10 ; RMSF ([place] spotted 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 and Abnormal brain MRI R90.89 [facility] [place] [address] [id number], [place] [id number] June, [facility] [address] [id number] [id number] June, 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 and RMSF ([place] spotted 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 [facility] [place] [address] [id number] [place] [id number] June, [facility] [place] [address] [id number] [place] [phone] June, [facility] [place] [address] [id number] [place] [address] [id number] June, RMSF ([place] spotted 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 and 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 [facility] [place] [id number] [place] [address] [id number] June, [facility] [place] [address] [id number] [place] [address] [id number] June, [facility] [place] [id number] [place] [address] [id number] June, [facility] [id number] [place] [address] June, [facility] [id number] [place] [address] [id number] June, [facility] [place] [id number] [place] [address] June, Radicular low back pain M54.10 and Scoliosis of thoracolumbar spine, unspecified scoliosis type M41.9 [facility] [place] [address] [id number], [place] [id number] June, [facility] [place] [id number], [place] 518708519 June, [facility] [place] [address] [id number], [place] [id number] June, [facility] [place] [address] [id number], [place] [id number] June, [facility] [place] [id number] [place] [address] [id number] June, RMSF ([place] spotted 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 [facility] [place] [address] [id number], [place] [id number] June, [facility] [place] [address] [id number], [place] 108281476 June, Muscle spasm M62.838 [facility] [id number], [place] [id number] June, [facility] [id number] [place] [address] [id number] May, [facility] [id number], [place] [id number] May, [facility] [id number] [place] [address] [id number] May, [facility] [address] [facility] [id number], [place] [id number] May, RMSF ([place] spotted 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 [facility] [address] [facility] [id number], [place] [id number] May, Essential hypertension I10 [facility] [address]00565[address], [place] [address] May, [facility] [id number] [place] [address] [id number] May, Other chronic pain G89.29 [facility] [id number] [place] [address] [id number] May, [facility] [id number] [place] [address] [id number] May, [facility] [id number] [place] [address] [id number] May, [facility] [id number] [place] [address] [id number] May, [facility] [id number], [place] [id number] May, RMSF ([place] spotted 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 ; Nausea R11.0 [...] depressive disorder, single episode, unspecified F32.9 [facility] [address] [id number] [place] [address] May, [place] spotted fever A77.0 [facility] [place] [address] [id number] [place] [id number] May, [facility] [place] [address] [id number] [place] [id number] May, [facility] [address] [id number] [place] [address]- [address] May, [facility] [place] [address] [id number] [place] [id number] May, [facility] [place] [address] [id number] [place] [id number] May, [facility] [place] [address] [id number] [place] [id number] May, [facility] [place] [address] [id number] [place] [id number] May, [facility] [place] [address] [id number] [place] [id number] May, [facility] [place] [address] [id number] [place] [id number] May, [facility] [place] [address] [id number] [place] [id number] May, [facility] [place] [address] [id number] [place] [id number] May, [facility] [place] [address] [id number] [place] [id number] May, [facility] [place] [address] [id number] [place] [id number] May, [facility] [place] [address] [id number] [place] [id number] May, [facility] [place] [address] [id number] [place] [id number] May, [facility] [place] [address] [id number] [place] [id number] May, [facility] [place] [address] [id number], [place] 602561483 May, Radicular low back pain M54.10 ; Other chronic pain G89.29 ; Fibromyalgia M79.7 ; Cervicalgia M54.2 ; Pain in thoracic spine M54.6 and Scoliosis of thoracolumbar spine, unspecified scoliosis type M41.[address] [id number], [place] [id number] May, [facility] [id number], [place] [id number] Apr, Muscle spasm M62.838 [address] [place] [address] [id number] Apr, [id number] [place] [address] [id number] Apr, Fibromyalgia M79.7 ; Muscle spasm M62.838 ; Other chronic pain G89.29 ; Vision changes H53.9 ; Headache above the eye region R51 ; Major depressive disorder, single episode, unspecified F32.9 ; Neck pain M54.2 and Thyroid nodule E04.1 [address]00565100[place] 376010575 Apr, Other chronic pain G89.29 [address] [place] [address] [id number] Apr, Chronic tension-type headache, intractable G44.221 [address] [place] [address] [id number] Mar, Other chronic pain G89.29 ; Scoliosis of thoracolumbar spine, unspecified scoliosis type M41.9 ; Muscle spasm M62.838 ; Other chronic pain G89.29 ; Headache above the eye region R51 ; Hospital discharge follow-up Z09 ; Lumbar back pain with radiculopathy affecting right lower extremity M54.17 ; Lumbar back pain with radiculopathy affecting left lower extremity M54.17 and Myalgia M79.1 [address]00565100[place] [id number] Mar, [id number] [place] [address] [id number] 14 Mar, 2017 Other chronic pain G89.29 [facility] [id number] [place] [address] [id number] 14 Mar, 2017 Radicular low back pain M54.10 [facility] [id number] [place] [address] [id number] Feb, [address] [place] [id number] [place] [address] [id number] Feb, [facility] [id number] [place] [address] [id number] Feb, Muscle spasm M62.838 [address] [id number] [place] [address] [id number] Feb, Itching L29.9 and Acute bilateral back pain, unspecified back location M54.9 [place] [id number] [place] [address] [id number] Feb, History of pneumonia Z87.01 ; Cough R05 ; Radicular low back pain M54.10 ; Scoliosis of thoracolumbar spine, unspecified scoliosis type M41.9 ; Elevated liver enzymes R74.8 ; Influenza J11.1 ; Severe single current episode of major depressive disorder, without psychotic features F32.2 and Stressful life events affecting family and household Z63.79 [place] [id number] [place] [address] [id number] Jan, Muscle spasm M62.838 [address] [id number] [place] [address] [id number] Jan, Post-nasal drainage R09.82 ; Anxiety F41.9 and Cough R05 [place] [id number] [place] [address] [id number] Jan, Severe episode of recurrent major depressive disorder, without psychotic features F33.[address] [place] [address] [id number] Jan, Muscle spasm M62.838 [address] [place] [id number] [place] [address] [id number] Jan, Acute recurrent maxillary sinusitis J01.01 and Breast tenderness in female N64.4 [facility] [id number], [place] [id number] Nov, [facility] [id number] [place] [address] [id number] Nov, [facility] [id number] [place] [address] [id number] Nov, Radicular low back pain M54.10 and Muscle spasm M62.838 [facility] [id number] [place] [address] [id number] Nov, [place] [id number] [place] [address] [id number] Nov, Viral disease B34.9 ; Fever, unspecified fever cause R50.9 ; Other fatigue R53.83 and Other malaise R53.81 [facility] [id number] [place] [address] [id number] Nov, Thyroid nodule E04.1 [place] [id number] [place] [address] [id number] Nov, Severe episode of recurrent major depressive disorder, without psychotic features F33.2 [address] [place] [address] [id number] Nov, Acute nasopharyngitis J00 [address] [place] [address] [id number] Oct, Scoliosis of thoracolumbar spine, unspecified scoliosis type M41.9 ; Muscle spasm M62.838 ; Thyroid nodule E04.1 ; Pain in thoracic spine M54.6 ; Other chronic pain G89.29 ; Cervicalgia M54.2 ; Radicular low back pain M54.10 ; Severe episode of recurrent major depressive disorder, without psychotic features F33.2 and High risk medication use Z79.899 [facility] [address]00565100[place], [place] [address]- [address] Oct, [facility] [address] [id number], [place] [id number] Sep, Scoliosis of thoracolumbar spine, unspecified scoliosis type M41.9 ; Muscle spasm M62.838 ; Thyroid nodule E04.1 ; Pain in thoracic spine M54.6 ; Other chronic pain G89.29 ; Cervicalgia M54.2 ; Controlled substance agreement signed Z79.899 ; Vaginal yeast infection B37.3 and Radicular low back pain M54.10 [facility] [id number] [place] [address] [id number] Sep, Scoliosis of thoracolumbar spine, unspecified scoliosis type M41.9 and Muscle spasm M62.838 [id number] [place] [address] [id number] Sep, Severe episode of recurrent major depressive disorder, without psychotic features F33.[address] [id number] Aug, Severe episode of recurrent major depressive disorder, without psychotic features F33.2 ; Thyroid nodule E04.1 ; Constipation, chronic K59.09 and Non morbid obesity due to excess calories E66.09 [id number] [place] [address] [id number] Aug, Non morbid obesity due to excess calories E66.09 and Thyroid nodule E04.[address] [id number] Aug, [address] [id number] Jul, Severe episode of recurrent major depressive disorder, without psychotic features F33.2 ; Thyroid nodule E04.1 ; Constipation, chronic K59.09 and Non morbid obesity due to excess calories E66.09 [address] [id number] [place] [address] [id number] June, Sore throat J02.9 and Major depressive disorder, single episode, unspecified F32.9 [facility] [address] [address]- [address] May, [facility] [address] [address]- [address] May, [facility] [address] [address]- [address] 14 Mar, 2013 [facility] [address] [id number] [place] [address]- 8726 14 Mar, 2013 [facility] [address] [id number] [place] [address]- 9006 06 Mar, 2013 [facility] [address] [facility] [id number] [place] [address]- 6[address] Mar, [facility] [address] [id number] [place] [address]- 0604 Jan, [facility] [address] [id number] [place] [address]- 0921 Jan, [facility] [address] [id number] [place] [address]- 1137 Jan, [facility] [address] [facility] [id number] [place] [address]- 8016 Jan, [facility] [address] [id number] [place] [address]- 3024 Jan, [facility] [address] [facility] [id number] [place] [address]- 9288 Jan, [facility] [address] [facility] [id number] [place] [address]- 6141 Jan, [facility] [address] [facility] [id number] [place] [address]- 0742 Jan, [facility] [place] [facility] [address] [id number] [place] [address]- 8884 Dec, [facility] [place] [facility] [address] [id number] [place] [address]- 0186 Dec, [facility] [place] [facility] [address] [facility] [id number] [place] [address]- 2789 Apr, [facility] [place] [facility] [address] [facility] [id number] [place] [address]- 8594 Jan, [facility] [place] [facility] [address] [id number] [place] [address]- 6449 Jan, [facility] [place] [facility] [address] [id number] [place] [address]- 3907 Dec, [facility] [place] [facility] [address] [id number] [place] [address]- 3107 Dec, [facility] [place] [facility] [address] [facility] [id number] [place]- [address] Nov, [facility] [place] [facility] [address] [id number] [place] [address]- 3683 Nov, [facility] [place] [facility] [address] [facility] [id number] [place] [address]- 7579 Sep, [facility] [place] [facility] [address] [facility] [id number] [place] [address]- 8569 Sep, [facility] [place] [address] [facility] [id number][place] [id number] Sep, [facility] [address] [facility] [id number] [id number] Sep, [facility] [place] [facility] [address] [facility] [id number] [place] [address] Sep, [facility] [place] [facility] [address] [facility] [id number], [place] [address] Sep, [facility] [address] [facility] [id number] [id number] Aug, [facility] [place] [facility] [address] [facility] [id number], [place] [address] Aug, [facility] [place] [facility] [address] [facility] [id number] [place] [address] Aug, [facility] [place] [facility] [address] [facility] [id number] [place] [address] Aug, [facility] [address] [facility] [id number] [id number] Jul, [facility] [place] [facility] [address] [id number] [place] [address] 28 Jul, 2011 [facility] [place] [facility] [address] [id number] [place] [address] Jul, [facility] [place] [facility] [address] [id number] [place] [address] Jul, [facility] [place] [facility] [address] [facility] [id number] [place] [address] May, [facility] [place] [facility] [address] [id number] [place] [address] Feb, [facility] [place] [facility] [address] [facility] [id number] [place] [address], [place] [address] Jan, [facility] [place] [facility] [address] [facility] [id number] [place] [address] Jan, [facility] [place] [facility] [address] [facility] [id number] [place] [address] Dec, [facility] [place] [facility] [address] [facility] [id number], [place] [address] Dec, [facility] [place] [facility] [address] [facility] [id number] [place] [address] Dec, [facility] [place] [facility] [address] [facility] [id number], [place] [address] Nov, [facility] [place] [facility] [address] [facility] [id number] [place] [address] Nov, [facility] [place] [facility] [address] [facility] [id number], [place] [address] Sep, [facility] [place] [facility] [address] [facility] [id number], [place] [address] Jul, [facility] [place] [facility] [address] [facility] [id number], [place] [address] Mar, [facility] [place] [facility] [address] [facility] [id number], [place] [address] Nov, [facility] [address] [facility] [id number] [place] [address] Nov, IMMUNIZATIONS No Known Immunizations SOCIAL HISTORY Never Assessed REASON FOR VISIT drug test PLAN OF CARE VITAL SIGNS MEDICATIONS Unknown Medications RESULTS No Results PROCEDURES No Known procedures INSTRUCTIONS MEDICATIONS ADMINISTERED No Known Medications MEDICAL (GENERAL) HISTORY Type Description Date Medical History Fibromyalgia Medical History Chronic Consipation Medical History 08/16/16 [facility] general surgery center, Dr. Jimenez, hemorrhage [...] Medical History MRI- Brain 05/29/2017 Medical History [place] Spotted Tick Fever Medical History Ebstein Feng Virus Surgical History hysterectomy, total with unilateral salpingo-oophorectomy ( USO) Surgical History cholecystectomy Surgical History tonsillectomy and adenoidectomy Surgical History hemorrhoidectomy Surgical History EGD Surgical History colonoscopy 08/25/16 Hospitalization History fever, HTN, abnormal head [facility] 05/28/17
--- OUTSIDE RECORDS SUMMARY | 2017-11-06 12:30 | XMS REPORT ---
Author Author MICHAEL CORREIA Organization [facility] Address [address] [place] [address] Care Team Providers Care Customer Relations Advisor Name Role Phone MICHAEL CORREIA Unavailable PROBLEMS Type Condition ICD9-CM Code [id number] Code Onset Dates Condition Status SNOMED Code Problem Major depressive disorder, single episode, unspecified F32.9 Active 25937229 Problem Thyroid nodule E04.1 Active 07362779 Problem Severe single current episode of major depressive disorder, without psychotic features F32.2 Active 38311296 Problem Severe episode of recurrent major depressive disorder, without psychotic features F33.2 Active 300925551438 Problem Chronic tension-type headache, intractable G44.221 Active 099233687 Problem Constipation, chronic K59.09 Active 169128464 Problem Essential hypertension I10 Active 51551397 Problem Non morbid obesity due to excess calories E66.09 Active 357073814 Problem 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 Active 725862700 Problem RMSF ([place] spotted 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 Active 701958342 Problem Abnormal brain MRI R90.89 Active 421457248 Problem Abnormal mammogram of left breast R92.8 Active 733626940 Problem Diarrhea, unspecified type R19.7 Active 21526543 Problem Controlled substance agreement signed Z79.899 Active 995663320 Problem Other chronic pain G89.29 Active 610483207 Problem Scoliosis of thoracolumbar spine, unspecified scoliosis type M41.9 Active 786339658 Problem 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 Active 984734949 Problem Recurrent fever A68.9 Active 961110732 Problem Epigastric abdominal pain R10.13 Active 59311883 Problem Abnormal mammogram R92.8 Active 699797446 Problem Pain in thoracic spine M54.6 Active 231778397621816 Problem Cervicalgia M54.2 Active 7211387309176 Problem Radicular low back pain M54.10 Active 81406115 Problem Muscle spasm M62.838 Active 64089402 Problem Other chronic pain G89.29 Active 114256843 Problem Fibromyalgia M79.7 Active 060023725 Problem Anxiety F41.9 Active 374972775 Problem Acute bilateral low back pain with sciatica, sciatica laterality unspecified M54.40 Active 240536797 ALLERGIES No Information ENCOUNTERS Encounter Location Date Diagnosis [facility] [address] [id number] Sep, [facility] [address] [facility] [address] [id number] [place] [id number] Sep, [facility] [id number] [place] [address]- [address] Sep, Fibromyalgia M79.7 [facility] [address] [facility] [address] [id number] [place] [id number] Sep, Epigastric abdominal pain R10.13 and Diarrhea, unspecified type R19.7 [facility] [id number] [place] [address] [id number] Sep, Abnormal mammogram of left breast R92.8 [facility] [id number] [place] [address] [id number] Sep, Abnormal mammogram R92.8 [facility] [id number] [place] [address] [id number] Sep, [facility] [id number] [place] [address] [id number] Aug, Abnormal mammogram R92.8 [facility] [address] [id number] [place] [address] [id number] Aug, [facility] [place] [id number] [place] [address] [id number] Aug, [facility] [id number] [place] [address] [id number] Aug, Screening breast examination Z12.31 and At risk for bone density loss Z91.89 [facility] [id number] [place] [address] [id number] Aug, [facility] [address] [id number][place] [id number] Aug, [facility] [place] [address] [id number], [place] [id number] Aug, Other chronic pain G89.29 [facility] [place] [address] [id number], [place] [id number] Aug, [facility] [place] [address] [id number][place] [id number] Aug, [facility] [place] [address] [id number][place] [id number] Aug, [facility] [place] [id number], [place] [id number] Aug, Fibromyalgia M79.7 ; Anxiety F41.9 ; High risk medication use Z79.899 ; Other chronic pain G89.29 ; Recurrent fever A68.9 ; 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 and RMSF ([place] spotted 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 [facility] [place] [id number], [place] [id number] Jul, [facility] [place] [id number], [place] [id number] Jul, [facility] [place] [id number], [place] [id number] Jul, Muscle spasm M62.838 and Anxiety F41.9 [facility] [place] [id number], [place] [id number] Jul, [facility] [place] [id number], [place] [id number] Jul, [facility] [place] [id number], [place] [id number] Jul, [facility] [address] [id number] [place] [id number] Jul, [facility] [place] [address] [facility] [id number], [place] [id number] Jul, [facility] [place] [id number], [place] [id number] Jul, [facility] [place] [id number], [place] [id number] Jul, [facility] [place] [address] [id number] [place] [id number] Jul, [facility] [place] [address] [id number] [place] [id number] Jul, [facility] [place] [address] [id number] [place] [id number] Jul, [facility] [place] [address] [id number] [place] [id number] Jul, Radicular low back pain M54.10 ; Other chronic pain G89.29 and Fibromyalgia M79.7 [facility] [place] [address] [id number] [place] [phone] Jul, [facility] [place] [address] [id number] [place] [id number] Jul, [facility] [place] [address] [id number] [place] [id number] Jul, [facility] [place] [address] [id number] [place] [id number] June, [facility] [place] [address] [id number], [place] [phone] June, [facility] [place] [address] [id number], [place] [id number] June, 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 ; Recurrent fever A68.9 ; Other chronic pain G89.29 ; Radicular low back pain M54.10 ; Chronic tension- type headache, intractable G44.221 ; Essential hypertension I10 ; RMSF ([place] spotted 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 and Abnormal brain MRI R90.89 [facility] [place] [address] [id number], [place] [id number] June, [facility] [address] [id number] [place] [phone] June, 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 and RMSF ([place] spotted 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 [facility] [place] [address] [id number], [place] [id number] June, [facility] [place] [address] [id number], [place] [id number] June, [facility] [place] [id number] [place] [address] [id number] June, RMSF ([place] spotted 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 and 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 [facility] [place] [address] [id number], [place] [id number] June, [facility] [place] [id number] [place] [address] [id number] June, [facility] [place] [id number] [place] [address] [id number] June, [facility] [id number] [place] [address]- [address] June, [facility] [place] [id number] [place] [address] [id number] June, [facility] [id number] [place] [address] 76850- 8671 June, Radicular low back pain M54.10 and Scoliosis of thoracolumbar spine, unspecified scoliosis type M41.9 [facility] [place] [id number] [place] [address] [id number] June, [facility] [place] [id number] [place] [address] [id number] June, [facility] [place] [id number], [place] [id number] June, [facility] [place] [id number] [place] [address] [id number] June, [facility] [place] [id number], [place] [id number] June, RMSF ([place] spotted 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 [facility] [place] [id number] [place] [address] [id number] June, [facility] [place] [address] [id number], [place] [id number] June, Muscle spasm M62.838 [facility] [place] [address] [id number] [place] [address] [id number] June, [facility] [place] [id number], [place] [id number] May, [facility] [place] [id number] [place] [address] [id number] May, [facility] [place] [address] [id number], [place] [id number] May, [facility] [address] [id number] [place] [phone] May, RMSF ([place] spotted 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 [facility] [address] [id number] [place] [id number] May, Essential hypertension I10 [facility] [address] [address] May, [facility] [place] [id number] [place] [address] [id number] May, Other chronic pain G89.29 [facility] [place] [id number] [place] [address] [id number] May, [facility] [place] [id number] [place] [address] [id number] May, [facility] [place] [id number] [place] [address] [id number] May, [facility] [place] [id number] [place] [address] [id number] May, [facility] [place] [id number] [place] [address] [id number] May, RMSF ([place] spotted 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 ; Nausea R11.0 ; [...] Major depressive disorder, single episode, unspecified F32.9 [facility] [id number] [place] [address] 40501- 3494 May, [place] spotted fever A77.0 [facility] [place] [address] [id number] [place] [phone] May, [facility] [place] [address] [id number] [place] [id number] May, [facility] [address] [facility] [id number] [place] [address]- 4[address] May, [facility] [place] [address] [id number] [place] [id number] May, [facility] [place] [address] [id number] [place] [phone] May, [facility] [place] [address] [id number] [place] [id number] May, [facility] [place] [address] [id number] [place] [id number] May, [facility] [place] [address] [id number] [place] [id number] May, [facility] [place] [address] [id number] [place] [phone] May, [facility] [place] [address] [id number] [place] [id number] May, [facility] [place] [address] [id number] [place] [id number] May, [facility] [place] [address] [id number] [place] [id number] May, [facility] [place] [address] [id number] [place] [id number] May, [facility] [place] [address] [id number] [place] [id number] May, [facility] [place] [address] [id number] [place] [id number] May, [facility] [place] [address] [id number] [place] [id number] May, [facility] [place] [address] [id number] [place] [id number] May, Radicular low back pain M54.10 ; Other chronic pain G89.29 ; Fibromyalgia M79.7 ; Cervicalgia M54.2 ; Pain in thoracic spine M54.6 and Scoliosis of thoracolumbar spine, unspecified scoliosis type M41.[address] [id number] [place] [id number] May, [facility] [address] [facility] [id number], [place] [id number] Apr, Muscle spasm M62.[address] [id number], [place] [id number] Apr, [address] [id number], [place] 877403434 Apr, Fibromyalgia M79.7 ; Muscle spasm M62.838 ; Other chronic pain G89.29 ; Vision changes H53.9 ; Headache above the eye region R51 ; Major depressive disorder, single episode, unspecified F32.9 ; Neck pain M54.2 and Thyroid nodule E04.[address] [id number], [place] [id number] Apr, Other chronic pain G89.[address] [id number], [place] [id number] Apr, Chronic tension-type headache, intractable G44.221 [address] [place] [address] [id number] Mar, Other chronic pain G89.29 ; Scoliosis of thoracolumbar spine, unspecified scoliosis type M41.9 ; Muscle spasm M62.838 ; Other chronic pain G89.29 ; Headache above the eye region R51 ; Hospital discharge follow-up Z09 ; Lumbar back pain with radiculopathy affecting right lower extremity M54.17 ; Lumbar back pain with radiculopathy affecting left lower extremity M54.17 and Myalgia M79.1 [place] [address] [facility] [id number], [place] [id number] Mar, [address] [id number], [place] [id number] Mar, Other chronic pain G89.29 [id number] [place] [address] [id number] 14 Mar, 2017 Radicular low back pain M54.10 [place] [id number] [place] [address] [id number] Feb, [address] [place] [id number] [place] [address] [id number] Feb, [address] [place] [id number] [place] [address] [id number] Feb, Muscle spasm M62.838 [address] [id number] [place] [address] [id number] Feb, Itching L29.9 and Acute bilateral back pain, unspecified back location M54.9 [address] [place] [id number] [place] [address] [id number] Feb, History of pneumonia Z87.01 ; Cough R05 ; Radicular low back pain M54.10 ; Scoliosis of thoracolumbar spine, unspecified scoliosis type M41.9 ; Elevated liver enzymes R74.8 ; Influenza J11.1 ; Severe single current episode of major depressive disorder, without psychotic features F32.2 and Stressful life events affecting family and household Z63.79 [address] [id number] [place] [address] [id number] Jan, Muscle spasm M62.838 [address] [place] [id number] [place] [address] [id number] Jan, Post-nasal drainage R09.82 ; Anxiety F41.9 and Cough R05 [address] [place] [address] [id number] Jan, Severe episode of recurrent major depressive disorder, without psychotic features F33.2 [address] [place] [address] [id number] Jan, Muscle spasm M62.838 [address] [place] [id number] [place] [address] [id number] Jan, Acute recurrent maxillary sinusitis J01.01 and Breast tenderness in female N64.4 [address] [id number] [place] [address] [id number] Nov, [facility] [id number], [place] [id number] Nov, [address] [id number] [place] [address] [id number] Nov, Radicular low back pain M54.10 and Muscle spasm M62.838 [place] [id number] [place] [address] [id number] Nov, [address] [id number] [place] [address] [id number] Nov, Viral disease B34.9 ; Fever, unspecified fever cause R50.9 ; Other fatigue R53.83 and Other malaise R53.81 [address] [id number] [place] [address] [id number] Nov, Thyroid nodule E04.1 [address] [id number] [place] [address] [id number] Nov, Severe episode of recurrent major depressive disorder, without psychotic features F33.2 [address] [id number] [place] [address] [id number] Nov, Acute nasopharyngitis J00 [address] [place] [address] [id number] Oct, Scoliosis of thoracolumbar spine, unspecified scoliosis type M41.9 ; Muscle spasm M62.838 ; Thyroid nodule E04.1 ; Pain in thoracic spine M54.6 ; Other chronic pain G89.29 ; Cervicalgia M54.2 ; Radicular low back pain M54.10 ; Severe episode of recurrent major depressive disorder, without psychotic features F33.2 and High risk medication use Z79.899 [facility] [address]100[place] 91345076- [address] Oct, [address] [place] [address] [id number] Sep, Scoliosis of thoracolumbar spine, unspecified scoliosis type M41.9 ; Muscle spasm M62.838 ; Thyroid nodule E04.1 ; Pain in thoracic spine M54.6 ; Other chronic pain G89.29 ; Cervicalgia M54.2 ; Controlled substance agreement signed Z79.899 ; Vaginal yeast infection B37.3 and Radicular low back pain M54.10 [facility] [id number] [place] [address] [id number] Sep, Scoliosis of thoracolumbar spine, unspecified scoliosis type M41.9 and Muscle spasm M62.838 [address] [id number] [place] [address] [id number] Sep, Severe episode of recurrent major depressive disorder, without psychotic features F33.2 [facility] [id number] [place] [address] [id number] Aug, Severe episode of recurrent major depressive disorder, without psychotic features F33.2 ; Thyroid nodule E04.1 ; Constipation, chronic K59.09 and Non morbid obesity due to excess calories E66.09 [address] [place] [id number] [place] [address] [id number] Aug, Non morbid obesity due to excess calories E66.09 and Thyroid nodule E04.1 [facility] [id number] [place] [address] [id number] Aug, [address] [id number] [place] [address] [id number] Jul, Severe episode of recurrent major depressive disorder, without psychotic features F33.2 ; Thyroid nodule E04.1 ; Constipation, chronic K59.09 and Non morbid obesity due to excess calories E66.09 [address] [place] [address] [id number] June, Sore throat J02.9 and Major depressive disorder, single episode, unspecified F32.9 [facility] [id number] [place] [address] 73582- 6260 May, [facility] [address] [address]- 9179 May, [facility] [id number] [place] [address] 11978- 2514 Mar, [facility] [address] 84309- 7799 14 Mar, 2013 [facility] [address] [id number] [place] [address]- 5196 Mar, [facility] [address] [id number] [place] [address]- 2116 06 Mar, 2013 [facility] [address] [id number] [place] [address]- 5886 Jan, [facility] [place] [facility] [address] [id number] [place] [address]- 7246 Jan, [facility] [address] [id number] [place] [address]- 9446 Jan, [facility] [address] [id number] [place] [address]- 5288 Jan, [facility] [address] [facility] [id number] [place] [address]- 4731 Jan, [facility] [address] [id number] [place] [address]- 6798 Jan, [facility] [address] [id number] [place] [address]- 3933 Jan, [facility] [address] [facility] [id number] [place] [address]- 5844 Jan, [facility] [address] [id number] [place] [address]- 8108 Dec, [facility] [place] [facility] [address] [id number] [place] [address]- 5470 Dec, [facility] [place] [facility] [address] [id number] [place] [address]- 6160 Apr, [facility] [place] [facility] [address] [id number] [place] [address]- 0776 Jan, [facility] [place] [facility] [address] [facility] [id number] [place] [address]- 3548 Jan, [facility] [place] [facility] [address] [id number] [place] [address]- 0289 Dec, [facility] [place] [facility] [address] [id number] [place] [address]- 8573 Dec, [facility] [place] [facility] [address] [id number] [place] [address]- 8117 Nov, [facility] [place] [facility] [address] [id number] [place] [address]- 4085 Nov, [facility] [place] [facility] [address] [id number] [place] [address]- 9609 Sep, [facility] [place] [facility] [address] [id number] [place] [address]- 4431 Sep, [facility] [place] [address] [facility] [id number], [place] [id number] Sep, [facility] [place] [address] [id number], [place] [id number] Sep, [facility] [place] [facility] [address] [id number], [place] [address]- 8551 Sep, [facility] [place] [facility] [address] [facility] [id number], [place] [address]- 0195 Sep, [facility] [place] [address] [facility] [id number], [place] [id number] Aug, [facility] [place] [facility] [address] [id number], [place] [address]- 4500 Aug, [facility] [place] [facility] [address] [facility] [id number], [place] [address]- 5909 Aug, [facility] [place] [facility] [address] [id number], [place] [address] Aug, [facility] [address] [facility] [id number][place] [id number] Jul, [facility] [place] [facility] [address] [facility] [id number] [place] [address] Jul, [facility] [place] [facility] [address] [facility] [id number], [place] [address] Jul, [facility] [address] [facility] [id number] [place] [address] Jul, [facility] [address] [facility] [id number] [place] [address] May, [facility] [address] [facility] [id number] [place] [address] Feb, [facility] [address] [facility] [id number] [place] [address] Jan, [facility] [address] [facility] [id number] [place] [address], [place] [address] Jan, [facility] [address] [facility] [id number] [place] [address] Dec, [facility] [id number] [place] [address] Dec, [facility] [address] [facility] [id number], [place] [address] Dec, [facility] [id number] [address] Nov, [facility] [address] [facility] [id number][place] [address] Nov, [facility] [id number], [place] [address] Sep, [facility] [address] [facility] [id number], [place] [address] Jul, [facility] [address] [facility] [id number], [place] [address] Mar, [facility] [address] [facility] [id number], [place] [address] Nov, [facility] [address] [facility] [id number], [place] [address] Nov, IMMUNIZATIONS No Known Immunizations SOCIAL HISTORY Never Assessed REASON FOR VISIT Re: RE:Anxiety Med PLAN OF CARE VITAL SIGNS MEDICATIONS Medication Instructions Dosage Frequency Start Date End Date Duration Status Diazepam 5 mg Orally Once a day for 7 days then every other day for 7 days, then every 3rd day then stop when script is out 1 tablet as needed 28 days Active BuSpar 5 mg Orally Three times a day (start with twice per day for the first week) 1 tablet Jul, 30 days Active RESULTS No Results PROCEDURES No Known procedures INSTRUCTIONS MEDICATIONS ADMINISTERED No Known Medications MEDICAL (GENERAL) HISTORY Type Description Date Medical History Fibromyalgia Medical History Chronic Consipation Medical History 08/16/16 [facility] general surgery center, Dr. Jimenez, [...] Medical History MRI- Brain 05/29/2017 Medical History [place] Spotted Tick Fever Medical History Ebstein Feng Virus Surgical History hysterectomy, total with unilateral salpingo-oophorectomy ( USO) Surgical History cholecystectomy Surgical History tonsillectomy and adenoidectomy Surgical History hemorrhoidectomy Surgical History EGD Surgical History colonoscopy 08/25/16 Hospitalization History fever, HTN, abnormal head [facility] 05/28/17
--- OUTSIDE RECORDS SUMMARY | 2017-11-06 12:30 | XMS REPORT ---
Author Author MICHAEL CORREIA Organization [facility] Address [address] [place] [address] Care Team Providers Care Sports Marketing Coordinator Name Role Phone MICHAEL CORREIA Unavailable PROBLEMS Type Condition ICD9-CM Code WLT26-PO Code Onset Dates Condition Status SNOMED Code Problem Major depressive disorder, single episode, unspecified F32.9 Active 66476575 Problem Thyroid nodule E04.1 Active 57255915 Problem Severe single current episode of major depressive disorder, without psychotic features F32.2 Active 04671306 Problem Severe episode of recurrent major depressive disorder, without psychotic features F33.2 Active 719922938672 Problem Chronic tension-type headache, intractable G44.221 Active 509810415 Problem Constipation, chronic K59.09 Active 244037566 Problem Essential hypertension I10 Active 99702018 Problem Non morbid obesity due to excess calories E66.09 Active 021464877 Problem 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 Active 864585780 Problem RMSF (Coeburn spotted 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 Active 763976245 Problem Abnormal brain MRI R90.89 Active 273203390 Problem Abnormal mammogram of left breast R92.8 Active 296754268 Problem Diarrhea, unspecified type R19.7 Active 94882817 Problem Controlled substance agreement signed Z79.899 Active 233726565 Problem Other chronic pain G89.29 Active 743313173 Problem Scoliosis of thoracolumbar spine, unspecified scoliosis type M41.9 Active 426071082 Problem 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 Active 832980172 Problem Recurrent fever A68.9 Active 402062582 Problem Epigastric abdominal pain R10.13 Active 91235498 Problem Abnormal mammogram R92.8 Active 331742726 Problem Pain in thoracic spine M54.6 Active 365024478802871 Problem Cervicalgia M54.2 Active 4146686598586 Problem Radicular low back pain M54.10 Active 20156600 Problem Muscle spasm M62.838 Active 71010123 Problem Other chronic pain G89.29 Active 165031312 Problem Fibromyalgia M79.7 Active 761316626 Problem Anxiety F41.9 Active 293030833 Problem Acute bilateral low back pain with sciatica, sciatica laterality unspecified M54.40 Active 512204181 ALLERGIES No Information ENCOUNTERS Encounter Location Date Diagnosis [facility] [address] [id number] Sep, [facility] [address] [facility] [address] [id number] [place] [id number] Sep, [facility] [address] [place] [address] Sep, Fibromyalgia M79.7 [facility] [address] [facility] [id number] [place] [id number] Sep, Epigastric abdominal pain R10.13 and Diarrhea, unspecified type R19.7 [facility] [id number] [place] [address] [id number] Sep, Abnormal mammogram of left breast R92.8 [facility] [address] [id number] [place] [address] [id number] Sep, Abnormal mammogram R92.8 [facility] [address] [id number] [place] [address] [id number] Sep, [facility] [address] [id number] [place] [address] [id number] Aug, Abnormal mammogram R92.8 [facility] [id number] [place] [address] [id number] Aug, [facility] [place] [id number] [place] [address] [id number] Aug, [facility] [address] [id number] [place] [address] [phone] Aug, Screening breast examination Z12.31 and At risk for bone density loss Z91.89 [facility] [id number] [place] [address] [id number] Aug, [facility] [address] [id number] [place] [id number] Aug, [facility] [place] [address] [id number] [place] [id number] Aug, Other chronic pain G89.29 [facility] [place] [address] [id number] [place] [phone] Aug, [facility] [place] [address] [id number] [place] [id number] Aug, [facility] [place] [address] [id number] [place] [phone] Aug, [facility] [place] [id number] [place] [id number] Aug, Fibromyalgia M79.7 ; Anxiety F41.9 ; High risk medication use Z79.899 ; Other chronic pain G89.29 ; Recurrent fever A68.9 ; 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 and RMSF (Coeburn spotted 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 [facility] [place] [id number] [place], [place] [id number] Jul, [facility] [place] [id number] [place] [id number] Jul, [facility] [place] [id number] [place] [id number] Jul, Muscle spasm M62.838 and Anxiety F41.9 [facility] [place] [id number] [place] [id number] Jul, [facility] [place] [id number] [place] [id number] Jul, [facility] [place] [id number] [place] [id number] Jul, [facility] [address] [id number] [place] [phone] Jul, [facility] [place] [address] [facility] [id number] [place] [id number] Jul, [facility] [place] [id number] [place] [id number] Jul, [facility] [place] [id number] [place] [id number] Jul, [facility] [place] [address] [id number] [place] [phone] Jul, [facility] [place] [address] [id number] [place] [phone] Jul, [facility] [place] [address] [id number] [place] [phone] Jul, [facility] [place] [address] [id number] [place] [phone] Jul, Radicular low back pain M54.10 ; Other chronic pain G89.29 and Fibromyalgia M79.7 [facility] [place] [address] [id number] [place] [id number] Jul, [facility] [place] [address] [id number] [place] [phone] Jul, [facility] [place] [address] [id number] [place] [phone] Jul, [facility] [place] [address] [id number] [place] [phone] June, [facility] [place] [address] [id number] [place] [id number] June, [facility] [place] [address] [id number] [place] [id number] June, 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 ; Recurrent fever A68.9 ; Other chronic pain G89.29 ; Radicular low back pain M54.10 ; Chronic tension- type headache, intractable G44.221 ; Essential hypertension I10 ; RMSF (Coeburn spotted 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 and Abnormal brain MRI R90.89 [facility] [place] [address] [id number] [place] [id number] June, [facility] [address] [id number] [place] [phone] June, 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 and RMSF (Coeburn spotted 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 [facility] [place] [address] [id number] [place] [id number] June, [facility] [place] [address] [id number] [place] [id number] June, [facility] [place] [address] [id number] [place] [address] [id number] June, RMSF (Coeburn spotted 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 and 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 [id number] [place] [address] 00282- 6624 June, [facility] [place] [id number] [place] [address] [id number] June, [facility] [id number] [place] [address]- [address] June, Radicular low back pain M54.10 and Scoliosis of thoracolumbar spine, unspecified scoliosis type M41.9 [facility] [place] [id number] [place] [address] [id number] June, [facility] [place] [id number] [place] [address] [id number] June, [facility] [place] [id number] [place] [id number] June, [facility] [place] [id number] [place] [address] [id number] June, [facility] [place] [id number] [place] [id number] June, RMSF (Coeburn spotted 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 [facility] [place] [id number] [place] [address] [id number] June, [facility] [place] [address] [id number] [place] [id number] June, Muscle spasm M62.838 [facility] [place] [address] [id number] [place] [address] [id number] June, [facility] [place] [id number] [place] [id number] May, [facility] [place] [id number] [place] [address] [id number] May, [facility] [place] [address] [id number] [place] [id number] May, [facility] [address] [id number] [place] [phone] May, RMSF (Coeburn spotted 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 [facility] [place] [address] [id number] [place] [id number] May, Essential hypertension I10 [facility] [address] [address] May, [facility] [place] [id number] [place] [address] [id number] May, Other chronic pain G89.29 [facility] [place] [id number] [place] [address] [id number] May, [facility] [place] [id number] [place] [address] [id number] May, [facility] [place] [id number] [place] [address] [id number] May, [facility] [place] [id number] [place] [address] [id number] May, [facility] [place] [id number] [place] [address] [id number] May, RMSF (Coeburn spotted 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 ; Nausea R11.0 ; [...] depressive disorder, single episode, unspecified F32.9 [facility] [id number] [place] [address] 01607- 4559 May, Coeburn spotted fever A77.0 [facility] [place] [address] [id number] [place] [phone] May, [facility] [place] [address] [id number] [place] [id number] May, [facility] [address] [facility] [id number] [place] [address]- 8[address] May, [facility] [place] [address] [id number] [place] [id number] May, [facility] [place] [address] [id number] [place] [id number] May, [facility] [place] [address] [id number] [place] [id number] May, [facility] [place] [address] [id number] [place] [id number] May, [facility] [place] [address] [id number] [place] [id number] May, [facility] [place] [address] [id number] [place] [id number] May, [facility] [place] [address] [id number] [place] [id number] May, [facility] [place] [address] [id number] [place] [id number] May, [facility] [place] [address] [id number] [place] [id number] May, [facility] [place] [address] [id number] [place] [id number] May, [facility] [place] [address] [id number] [place] [id number] May, [facility] [place] [address] [id number] [place] [id number] May, [facility] [place] [address] [id number] [place] [id number] May, [facility] [place] [address] [id number] [place] [id number] May, Radicular low back pain M54.10 ; Other chronic pain G89.29 ; Fibromyalgia M79.7 ; Cervicalgia M54.2 ; Pain in thoracic spine M54.6 and Scoliosis of thoracolumbar spine, unspecified scoliosis type M41.[address] [id number] [place] [id number] May, [facility] [address] [facility] [id number] [place] [id number] Apr, Muscle spasm M62.[address] [id number] [place] [id number] Apr, [address] [id number] [place] [id number] Apr, Fibromyalgia M79.7 ; Muscle spasm M62.838 ; Other chronic pain G89.29 ; Vision changes H53.9 ; Headache above the eye region R51 ; Major depressive disorder, single episode, unspecified F32.9 ; Neck pain M54.2 and Thyroid nodule E04.[address] [id number] [place] [id number] Apr, Other chronic pain G89.[address] [id number] [place] [id number] Apr, Chronic tension-type headache, intractable G44.221 [address] [place] [address] [id number] Mar, Other chronic pain G89.29 ; Scoliosis of thoracolumbar spine, unspecified scoliosis type M41.9 ; Muscle spasm M62.838 ; Other chronic pain G89.29 ; Headache above the eye region R51 ; Hospital discharge follow-up Z09 ; Lumbar back pain with radiculopathy affecting right lower extremity M54.17 ; Lumbar back pain with radiculopathy affecting left lower extremity M54.17 and Myalgia M79.1 [place] [address] [address] [facility] [id number] [place] [id number] Mar, [address] [id number] [place] [id number] Mar, Other chronic pain G89.29 [place] [id number] [place] [address] [id number] 14 Mar, 2017 Radicular low back pain M54.10 [place] [id number] [place] [address] [id number] Feb, [place] [id number] [place] [address] [id number] Feb, [place] [id number] [place] [address] [id number] Feb, Muscle spasm M62.838 [place] [id number] [place] [address] [id number] Feb, Itching L29.9 and Acute bilateral back pain, unspecified back location M54.9 [place] [id number] [place] [address] [id number] Feb, History of pneumonia Z87.01 ; Cough R05 ; Radicular low back pain M54.10 ; Scoliosis of thoracolumbar spine, unspecified scoliosis type M41.9 ; Elevated liver enzymes R74.8 ; Influenza J11.1 ; Severe single current episode of major depressive disorder, without psychotic features F32.2 and Stressful life events affecting family and household Z63.79 [place] [address] [place] [address] [id number] Jan, Muscle spasm M62.838 [place] [address] [place] [address] [id number] Jan, Post-nasal drainage R09.82 ; Anxiety F41.9 and Cough R05 [address] [place] [address] [id number] Jan, Severe episode of recurrent major depressive disorder, without psychotic features F33.2 [address] [place] [address] [id number] Jan, Muscle spasm M62.838 [place] [address] [place] [address] [id number] Jan, Acute recurrent maxillary sinusitis J01.01 and Breast tenderness in female N64.4 [place] [id number] [place] [address] [id number] Nov, [facility] [id number] [place] [id number] Nov, [place] [id number] [place] [address] [id number] Nov, Radicular low back pain M54.10 and Muscle spasm M62.838 [place] [id number] [place] [address] [id number] Nov, [place] [id number] [place] [address] [id number] Nov, Viral disease B34.9 ; Fever, unspecified fever cause R50.9 ; Other fatigue R53.83 and Other malaise R53.81 [place] [address] [place] [address] [id number] Nov, Thyroid nodule E04.1 [place] [address] [place] [address] [id number] Nov, Severe episode of recurrent major depressive disorder, without psychotic features F33.2 [place] [id number] [place] [address] [id number] Nov, Acute nasopharyngitis J00 [address] [place] [address] [id number] Oct, Scoliosis of thoracolumbar spine, unspecified scoliosis type M41.9 ; Muscle spasm M62.838 ; Thyroid nodule E04.1 ; Pain in thoracic spine M54.6 ; Other chronic pain G89.29 ; Cervicalgia M54.2 ; Radicular low back pain M54.10 ; Severe episode of recurrent major depressive disorder, without psychotic features F33.2 and High risk medication use Z79.899 [facility] [address] [id number]- [address] Oct, [address] [place] [address] [id number] Sep, Scoliosis of thoracolumbar spine, unspecified scoliosis type M41.9 ; Muscle spasm M62.838 ; Thyroid nodule E04.1 ; Pain in thoracic spine M54.6 ; Other chronic pain G89.29 ; Cervicalgia M54.2 ; Controlled substance agreement signed Z79.899 ; Vaginal yeast infection B37.3 and Radicular low back pain M54.10 [facility] [id number] [place] [address] [id number] Sep, Scoliosis of thoracolumbar spine, unspecified scoliosis type M41.9 and Muscle spasm M62.838 [address] [id number] [place] [address] [id number] Sep, Severe episode of recurrent major depressive disorder, without psychotic features F33.2 [facility] [id number] [place] [address] [id number] Aug, Severe episode of recurrent major depressive disorder, without psychotic features F33.2 ; Thyroid nodule E04.1 ; Constipation, chronic K59.09 and Non morbid obesity due to excess calories E66.09 [place] [address] [place] [address] [id number] Aug, Non morbid obesity due to excess calories E66.09 and Thyroid nodule E04.1 [facility] [id number] [place] [address] [id number] Aug, [place] [id number] [place] [address] [id number] Jul, Severe episode of recurrent major depressive disorder, without psychotic features F33.2 ; Thyroid nodule E04.1 ; Constipation, chronic K59.09 and Non morbid obesity due to excess calories E66.09 [address] [place] [address] [id number] June, Sore throat J02.9 and Major depressive disorder, single episode, unspecified F32.9 [facility] [id number] [place] [address] 04113- 7734 May, [facility] [address] [address]- [address] May, [facility] [id number] [place] [address] 59653- 5428 Mar, [facility] [address] [address]- 6966 14 Mar, 2013 [facility] [address] [id number] [place] [address]- 9676 Mar, [facility] [address] [id number] [place] [address]- 6376 06 Mar, 2013 [facility] [address] [id number] [place] [address]- 9016 Jan, [facility] [place] [facility] [address] [id number] [place] [address]- 8016 Jan, [facility] [address] [id number] [place] [address]- 4486 Jan, [facility] [address] [id number] [place] [address]- 3423 Jan, [facility] [address] [facility] [id number] [place] [address]- 8481 Jan, [facility] [address] [id number] [place] [address]- 3933 Jan, [facility] [address] [id number] [place] [address]- 2354 Jan, [facility] [address] [facility] [id number] [place] [address]- 2994 Jan, [facility] [address] [id number] [place] [address]- 3382 Dec, [facility] [place] [facility] [address] [id number] [place] [address]- 9139 Dec, [facility] [place] [facility] [address] [id number] [place] [address]- 5990 Apr, [facility] [place] [facility] [address] [id number] [place] [address]- 4334 Jan, [facility] [place] [facility] [address] [facility] [id number] [place] [address]- 9838 Jan, [facility] [place] [facility] [address] [id number] [place] [address]- 5745 Dec, [facility] [place] [facility] [address] [id number] [place] [address]- 4983 Dec, [facility] [place] [facility] [address] [id number] [place] [address]- 6645 Nov, [facility] [place] [facility] [address] [id number] [place] [address]- 3003 Nov, [facility] [place] [facility] [address] [id number] [place] [address]- 0981 Sep, [facility] [place] [facility] [address] [id number] [place] [address]- 7343 Sep, [facility] [place] [address] [facility] [id number] [place] [id number] Sep, [facility] [place] [address] [id number] [place] [id number] Sep, [facility] [place] [facility] [address] [id number] [address]- 3[address] Sep, [facility] [place] [facility] [address] [facility] [id number] [place] [address] Sep, [facility] [address] [facility] [id number] [place] [id number] Aug, [facility] [place] [facility] [address] [id number] [place] [address] Aug, [facility] [place] [facility] [address] [facility] [id number] [place] [address] Aug, [facility] [place] [facility] [address] [id number] [place] [address] Aug, [facility] [address] [facility] [id number] [place] [id number] Jul, [facility] [place] [facility] [address] [facility] [id number] [place] [address] Jul, [facility] [place] [facility] [address] [facility] [id number] [place] [address] Jul, [facility] [address] [facility] [id number] [place] [address] Jul, [facility] [address] [facility] [id number] [place] [address] May, [facility] [address] [facility] [id number] [place] [address] Feb, [facility] [address] [facility] [id number] [place] [address] Jan, [facility] [address] [facility] [id number] [place] [address], [place] [address] Jan, [facility] [address] [facility] [id number] [place] [address] Dec, [facility] [id number] [place] [address] Dec, [facility] [address] [facility] [id number] [place] [address] Dec, [facility] [id number] [address] Nov, [facility] [address] [facility] [id number] [place] Nov, [facility] [id number] [address] Sep, [facility] [address] [facility] [id number] [place] [address] Jul, [facility] [address] [facility] [facility] [id number] [place] [address] Mar, [facility] [address] [facility] [id number] [place] [address] Nov, [facility] [address] [facility] [id number] [place] [address] Nov, IMMUNIZATIONS No Known Immunizations SOCIAL HISTORY Never Assessed REASON FOR VISIT Medication PLAN OF CARE VITAL SIGNS MEDICATIONS Unknown Medications RESULTS No Results PROCEDURES No Known procedures INSTRUCTIONS MEDICATIONS ADMINISTERED No Known Medications MEDICAL (GENERAL) HISTORY Type Description Date Medical History Fibromyalgia Medical History Chronic Consipation Medical History 08/16/16 [facility] general surgery center, Dr. Jimenez, hemorrhage [...] Medical History MRI- Brain 05/29/2017 Medical History [place] Spotted Tick Fever Medical History Ebstein Feng Virus Surgical History hysterectomy, total with unilateral salpingo-oophorectomy ( USO) Surgical History cholecystectomy Surgical History tonsillectomy and adenoidectomy Surgical History hemorrhoidectomy Surgical History EGD Surgical History colonoscopy 08/25/16 Hospitalization History fever, HTN, abnormal head [facility] 05/28/17
--- OUTSIDE RECORDS SUMMARY | 2017-11-06 12:31 | XMS REPORT ---
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 Name Role Phone MICHAEL CORREIA Unavailable PROBLEMS Type Condition ICD9-CM Code WOD20-JT Code Onset Dates Condition Status SNOMED Code Problem Major depressive disorder, single episode, unspecified F32.9 Active 23928843 Problem Thyroid nodule E04.1 Active 62763674 Problem Severe single current episode of major depressive disorder, without psychotic features F32.2 Active 07424208 Problem Severe episode of recurrent major depressive disorder, without psychotic features F33.2 Active 807695910959 Problem Chronic tension-type headache, intractable G44.221 Active 633392091 Problem Constipation, chronic K59.09 Active 109948371 Problem Essential hypertension I10 Active 34949301 Problem Non morbid obesity due to excess calories E66.09 Active 226406861 Problem 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 Active 501845686 Problem RMSF ([place] spotted 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 Active 979622007 Problem Abnormal brain MRI R90.89 Active 518544728 Problem Abnormal mammogram of left breast R92.8 Active 736668953 Problem Diarrhea, unspecified type R19.7 Active 64555848 Problem Controlled substance agreement signed Z79.899 Active 007068315 Problem Other chronic pain G89.29 Active 545713300 Problem Scoliosis of thoracolumbar spine, unspecified scoliosis type M41.9 Active 605931070 Problem 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 Active 772511446 Problem Recurrent fever A68.9 Active 162954686 Problem Epigastric abdominal pain R10.13 Active 36764387 Problem Abnormal mammogram R92.8 Active 738465409 Problem Pain in thoracic spine M54.6 Active [id number] Problem Cervicalgia M54.2 Active 0846538323664 Problem Radicular low back pain M54.10 Active 77478756 Problem Muscle spasm M62.838 Active 03492888 Problem Other chronic pain G89.29 Active 908970555 Problem Fibromyalgia M79.7 Active 664990117 Problem Anxiety F41.9 Active 033187410 Problem Acute bilateral low back pain with sciatica, sciatica laterality unspecified M54.40 Active 382111833 ALLERGIES No Information ENCOUNTERS Encounter Location Date Diagnosis [facility] [address] [id number] Sep, [facility] [address] [facility] [id number][place] [id number] Sep, [facility] [address] [place] [address] Sep, Fibromyalgia M79.7 [facility] [address] [facility] [id number], [place] [id number] Sep, Epigastric abdominal pain R10.13 and Diarrhea, unspecified type R19.7 [facility] [id number] [place] [address] [id number] Sep, Abnormal mammogram of left breast R92.8 [facility] [id number] [place] [address] [id number] Sep, Abnormal mammogram R92.8 [facility] [address] [id number] [place] [address] [id number] Sep, [facility] [address] [id number] [place] [address] [id number] Aug, Abnormal mammogram R92.8 [facility] [id number] [place] [address] [id number] Aug, [facility] [place] [id number] [place] [address] [id number] Aug, [facility] [address] [id number] [place] [address] [id number] Aug, Screening breast examination Z12.31 and At risk for bone density loss Z91.89 [facility] [id number] [place] [address] [id number] Aug, [facility] [address] [id number] [place] [id number] Aug, [facility] [place] [address] [id number] [place] [id number] Aug, Other chronic pain G89.29 [facility] [place] [address] [id number] [place] [id number] Aug, [facility] [place] [address] [id number] [place] [id number] Aug, [facility] [place] [address] [id number] [place] [id number] Aug, [facility] [place] [id number] [place] [id number] Aug, Fibromyalgia M79.7 ; Anxiety F41.9 ; High risk medication use Z79.899 ; Other chronic pain G89.29 ; Recurrent fever A68.9 ; 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 and RMSF ([place] spotted 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 [facility] [place] [id number] [place] [id number] Jul, [facility] [place] [id number] [place] [id number] Jul, [facility] [place] [id number] [place] [id number] Jul, Muscle spasm M62.838 and Anxiety F41.9 [facility] [place] [id number] [place] [id number] Jul, [facility] [place] [id number] [place] [id number] Jul, [facility] [place] [id number] [place] [id number] Jul, [facility] [address] [id number], [place] [id number] Jul, [facility] [place] [address] [facility] [id number] [place] [id number] Jul, [facility] [place] [id number] [place] [id number] Jul, [facility] [place] [id number] [place] [id number] Jul, [facility] [place] [address] [id number] [place] [id number] Jul, [facility] [place] [address] [id number] [place] [address] Jul, [facility] [place] [address] [id number] [place] [address] Jul, [facility] [place] [address] [id number] [place] [id number] Jul, Radicular low back pain M54.10 ; Other chronic pain G89.29 and Fibromyalgia M79.7 [facility] [place] [address] [id number] [place] [id number] Jul, [facility] [place] [address] [id number] [place] [id number] Jul, [facility] [place] [address] [id number] [place] [id number] Jul, [facility] [place] [address] [id number] [place] [id number] June, [facility] [place] [address] [id number] [place] [id number] June, [facility] [place] [address] [id number] [place] 15[address] June, 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 ; Recurrent fever A68.9 ; Other chronic pain G89.29 ; Radicular low back pain M54.10 ; Chronic tension- type headache, intractable G44.221 ; Essential hypertension I10 ; RMSF ([place] spotted 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 and Abnormal brain MRI R90.89 [facility] [place] [address] [id number] [place] [id number] June, [facility] [address] [id number], [place] [id number] June, 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 and RMSF ([place] spotted 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 [facility] [place] [address] [id number] [place] [id number] June, [facility] [place] [address] [id number] [place] [id number] June, [facility] [place] [address] [id number] [place] [address] [id number] June, RMSF ([place] spotted 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 and 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 [facility] [place] [address] [id number] [place] [id number] June, [facility] [place] [address] [id number] [place] [address] [id number] June, [facility] [place] [id number] [place] [address] [id number] June, [facility] [id number] [place] [address] 94338- 1259 June, [facility] [place] [id number] [place] [address] [id number] June, [facility] [id number] [place] [address] 91002- 1307 June, Radicular low back pain M54.10 and Scoliosis of thoracolumbar spine, unspecified scoliosis type M41.9 [facility] [place] [id number] [place] [address] [id number] June, [facility] [place] [id number] [place] [address] [id number] June, [facility] [place] [id number] [place] [phone] June, [facility] [place] [id number] [place] [address] [id number] June, [facility] [place] [id number] [place] [id number] June, RMSF ([place] spotted 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 [facility] [place] [address] [place] [id number] [place] [address] [id number] June, [facility] [place] [address] [id number] [place] [id number] June, Muscle spasm M62.838 [facility] [place] [address] [id number] [place] [address] [id number] June, [facility] [place] [id number] [place] [id number] May, [facility] [place] [id number] [place] [address] [id number] May, [facility] [place] [address] [id number] [place] [id number] May, [facility] [place] [address] [id number] [id number] May, RMSF ([place] spotted 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 [facility] [place] [address] [id number][place] [id number] May, Essential hypertension I10 [facility] [address] [address] May, [facility] [place] [id number] [place] [address] [id number] May, Other chronic pain G89.29 [facility] [place] [id number] [place] [address] [id number] May, [facility] [place] [id number] [place] [address] [id number] May, [facility] [place] [id number] [place] [address] [id number] May, [facility] [place] [id number] [place] [address] [id number] May, [facility] [place] [id number] [place] [address] [id number] May, RMSF ([place] spotted 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 ; Nausea R11.0 ; [...] Major depressive disorder, single episode, unspecified F32.9 [facility] [id number] [place] [address] 21950- 8219 May, [place] spotted fever A77.0 [facility] [place] [address] [id number] [place] [id number] May, [facility] [place] [address] [id number] [place] [id number] May, [facility] [address] [facility] [id number] [place] [address]- [address] May, [facility] [place] [address] [id number] [place] [id number] May, [facility] [place] [address] [id number] [place] [id number] May, [facility] [place] [address] [id number] [place] 798394576 May, [facility] [place] [address] [id number] [place] [id number] May, [facility] [place] [address] [id number] [place] [id number] May, [facility] [place] [address] [id number] [place] [id number] May, [facility] [place] [address] [id number] [place] [id number] May, [facility] [place] [address] [id number] [place] [id number] May, [facility] [place] [address] [id number] [place] [id number] May, [facility] [place] [address] [id number] [place] [id number] May, [facility] [place] [address] [id number] [place] [id number] May, [facility] [place] [address] [id number] [place] [id number] May, [facility] [place] [address] [id number] [place] [id number] May, [facility] [place] [address] [id number] [place] [id number] May, Radicular low back pain M54.10 ; Other chronic pain G89.29 ; Fibromyalgia M79.7 ; Cervicalgia M54.2 ; Pain in thoracic spine M54.6 and Scoliosis of thoracolumbar spine, unspecified scoliosis type M41.[address] [id number], [place] [id number] May, [facility] [address] [facility] [id number] [place] [id number] Apr, Muscle spasm M62.[address] [id number] [place] [id number] Apr, [address] [id number] [place] [id number] Apr, Fibromyalgia M79.7 ; Muscle spasm M62.838 ; Other chronic pain G89.29 ; Vision changes H53.9 ; Headache above the eye region R51 ; Major depressive disorder, single episode, unspecified F32.9 ; Neck pain M54.2 and Thyroid nodule E04.[address] [id number] [place] [id number] Apr, Other chronic pain G89.[address] [id number] [place] [id number] Apr, Chronic tension-type headache, intractable G44.221 [address] [place] [address] [id number] Mar, Other chronic pain G89.29 ; Scoliosis of thoracolumbar spine, unspecified scoliosis type M41.9 ; Muscle spasm M62.838 ; Other chronic pain G89.29 ; Headache above the eye region R51 ; Hospital discharge follow-up Z09 ; Lumbar back pain with radiculopathy affecting right lower extremity M54.17 ; Lumbar back pain with radiculopathy affecting left lower extremity M54.17 and Myalgia M79.1 [place] [address] [facility] [id number] [place] [id number] Mar, [address] [id number] [place] [id number] Mar, Other chronic pain G89.29 [place] [id number] [place] [address] [id number] 14 Mar, 2017 Radicular low back pain M54.10 [place] [address] [id number] [place] [address] [id number] Feb, [place] [id number] [place] [address] [id number] Feb, [place] [id number] [place] [address] [id number] Feb, Muscle spasm M62.838 [place] [id number] [place] [address] [id number] Feb, Itching L29.9 and Acute bilateral back pain, unspecified back location M54.9 [place] [id number] [place] [address] [id number] Feb, History of pneumonia Z87.01 ; Cough R05 ; Radicular low back pain M54.10 ; Scoliosis of thoracolumbar spine, unspecified scoliosis type M41.9 ; Elevated liver enzymes R74.8 ; Influenza J11.1 ; Severe single current episode of major depressive disorder, without psychotic features F32.2 and Stressful life events affecting family and household Z63.79 [place] [id number] [place] [address] [id number] Jan, Muscle spasm M62.838 [place] [address] [place] [address] [id number] Jan, Post-nasal drainage R09.82 ; Anxiety F41.9 and Cough R05 [address] [place] [address] [id number] Jan, Severe episode of recurrent major depressive disorder, without psychotic features F33.2 [address] [place] [address] [id number] Jan, Muscle spasm M62.838 [place] [id number] [place] [address] [id number] Jan, Acute recurrent maxillary sinusitis J01.01 and Breast tenderness in female N64.4 [place] [id number] [place] [address] [id number] Nov, [facility] [id number] [place] [id number] Nov, [place] [id number] [place] [address] [id number] Nov, Radicular low back pain M54.10 and Muscle spasm M62.838 [place] [address] [id number] [place] [address] [id number] Nov, [place] [address] [place] [address] [id number] Nov, Viral disease B34.9 ; Fever, unspecified fever cause R50.9 ; Other fatigue R53.83 and Other malaise R53.81 [place] [address] [place] [address] [id number] Nov, Thyroid nodule E04.1 [place] [address] [place] [address] [id number] Nov, Severe episode of recurrent major depressive disorder, without psychotic features F33.2 [place] [address] [place] [address] [id number] Nov, Acute nasopharyngitis J00 [address] [place] [address] [id number] Oct, Scoliosis of thoracolumbar spine, unspecified scoliosis type M41.9 ; Muscle spasm M62.838 ; Thyroid nodule E04.1 ; Pain in thoracic spine M54.6 ; Other chronic pain G89.29 ; Cervicalgia M54.2 ; Radicular low back pain M54.10 ; Severe episode of recurrent major depressive disorder, without psychotic features F33.2 and High risk medication use Z79.899 [facility] [address]100[place] 00736310- [address] Oct, [address] [place] [address] [id number] Sep, Scoliosis of thoracolumbar spine, unspecified scoliosis type M41.9 ; Muscle spasm M62.838 ; Thyroid nodule E04.1 ; Pain in thoracic spine M54.6 ; Other chronic pain G89.29 ; Cervicalgia M54.2 ; Controlled substance agreement signed Z79.899 ; Vaginal yeast infection B37.3 and Radicular low back pain M54.10 [facility] [id number] [place] [address] [id number] Sep, Scoliosis of thoracolumbar spine, unspecified scoliosis type M41.9 and Muscle spasm M62.838 [place] [address] [place] [address] [id number] Sep, Severe episode of recurrent major depressive disorder, without psychotic features F33.2 [facility] [id number] [place] [address] [id number] Aug, Severe episode of recurrent major depressive disorder, without psychotic features F33.2 ; Thyroid nodule E04.1 ; Constipation, chronic K59.09 and Non morbid obesity due to excess calories E66.09 [place] [address] [place] [address] [id number] Aug, Non morbid obesity due to excess calories E66.09 and Thyroid nodule E04.1 [facility] [id number] [place] [address] [id number] Aug, [place] [address] [place] [address] [id number] Jul, Severe episode of recurrent major depressive disorder, without psychotic features F33.2 ; Thyroid nodule E04.1 ; Constipation, chronic K59.09 and Non morbid obesity due to excess calories E66.09 [address] [place] [address] [id number] June, Sore throat J02.9 and Major depressive disorder, single episode, unspecified F32.9 [facility] [id number] [place] [address] 47125- 5594 May, [facility] [address] 473[address]- 7463 May, [facility] [id number] [place] [address] 92605- 8195 Mar, [facility] [address] 17045- 5035 14 Mar, 2013 [facility] [address] [id number] [place] [address]- 4476 Mar, [facility] [address] [id number] [place] [address]- 6026 06 Mar, 2013 [facility] [address] [id number] [place] [address]- 8336 Jan, [facility] [place] [facility] [address] [id number] [place] [address]- 3896 Jan, [facility] [address] [id number] [place] [address]- 2756 Jan, [facility] [address] [id number] [place] [address]- 7467 Jan, [facility] [address] [facility] [id number] [place] [address]- 5379 Jan, [facility] [address] [id number] [place] [address]- 1414 Jan, [facility] [address] [id number] [place] [address]- 9656 Jan, [facility] [address] [facility] [id number] [place] [address]- 3308 Jan, [facility] [address] [id number] [place] [address]- 3029 Dec, [facility] [place] [facility] [address] [id number] [place] [address]- 3650 Dec, [facility] [place] [facility] [address] [id number] [place] [address]- 9264 Apr, [facility] [place] [facility] [address] [id number] [place] [address]- 0521 Jan, [facility] [place] [facility] [address] [facility] [id number] [place] [address]- 5553 Jan, [facility] [place] [facility] [address] [id number] [place] [address]- 6244 Dec, [facility] [place] [facility] [address] [id number] [place] [address]- 2237 Dec, [facility] [place] [facility] [address] [id number] [place] [address]- 5295 Nov, [facility] [place] [facility] [address] [id number] [place] [address]- 8361 Nov, [facility] [place] [facility] [address] [id number] [place] [address]- 9510 Sep, [facility] [place] [facility] [address] [id number] [place] [address]- 0508 Sep, [facility] [place] [address] [facility] [id number] [place] [id number] Sep, [facility] [place] [address] [id number] [place] [id number] Sep, [facility] [place] [facility] [address] [id number], [place] [address]- 2986 Sep, [facility] [place] [facility] [address] [facility] [id number], [place] [address]- 2608 Sep, [facility] [place] [address] [facility] [id number] [place] [id number] Aug, [facility] [place] [facility] [address] [id number], [place] [address]- 6[address] Aug, [facility] [place] [facility] [address] [facility] [id number], [place] [address]- 9051 Aug, [facility] [place] [facility] [address] [id number], [place] [address] Aug, [facility] [address] [facility] [id number] [place] [id number] Jul, [facility] [place] [facility] [address] [facility] [id number] [place] [address] Jul, [facility] [place] [facility] [address] [facility] [id number], [place] [address] Jul, [facility] [address] [facility] [id number] [place] [address] Jul, [facility] [address] [facility] [id number] [place] [address] May, [facility] [address] [facility] [id number] [place] [address] Feb, [facility] [address] [facility] [id number] [place] [address] Jan, [facility] [address] [facility] [id number] [place] [address], [place] [address] Jan, [facility] [address] [facility] [id number] [place] [address] Dec, [facility] [id number] [place] [address] Dec, [facility] [address] [facility] [id number], [place] [address] Dec, [facility] [id number] [address] Nov, [facility] [address] [facility] [id number] [address] Nov, [facility] [id number], [place] [address] Sep, [facility] [address] [facility] [id number], [place] [address] Jul, [facility] [address] [facility] [id number], [place] [address] Mar, [facility] [address] [facility] [id number], [place] [address] Nov, [facility] [address] [facility] [id number], [place] [address] Nov, IMMUNIZATIONS No Known Immunizations SOCIAL HISTORY Never Assessed REASON FOR VISIT Re: RE:Re: RE:FYI only PLAN OF CARE VITAL SIGNS MEDICATIONS Unknown Medications RESULTS No Results PROCEDURES No Known procedures INSTRUCTIONS MEDICATIONS ADMINISTERED No Known Medications MEDICAL (GENERAL) HISTORY Type Description Date Medical History Fibromyalgia Medical History Chronic Consipation Medical History 08/16/16 [facility] general surgery center, Dr. Jimenez, [...] Medical History MRI- Brain 05/29/2017 Medical History [place] Spotted Tick Fever Medical History Ebstein Feng Virus Surgical History hysterectomy, total with unilateral salpingo-oophorectomy ( USO) Surgical History cholecystectomy Surgical History tonsillectomy and adenoidectomy Surgical History hemorrhoidectomy Surgical History EGD Surgical History colonoscopy 08/25/16 Hospitalization History fever, HTN, abnormal head [facility] 05/28/17
--- OUTSIDE RECORDS SUMMARY | 2017-11-06 12:31 | XMS REPORT ---
Author Author MICHAEL CORREIA Organization [facility] Address [address] [place] [address] Care Team Providers Care Sheet Rock Installation Helper Name Role Phone MICHAEL CORREIA Unavailable PROBLEMS Type Condition ICD9-CM Code XDM08-MW Code Onset Dates Condition Status SNOMED Code Problem Major depressive disorder, single episode, unspecified F32.9 Active 43922848 Problem Thyroid nodule E04.1 Active 58598018 Problem Severe single current episode of major depressive disorder, without psychotic features F32.2 Active 15024938 Problem Severe episode of recurrent major depressive disorder, without psychotic features F33.2 Active 896565896387 Problem Chronic tension-type headache, intractable G44.221 Active 437688276 Problem Constipation, chronic K59.09 Active 753925234 Problem Essential hypertension I10 Active 66535454 Problem Non morbid obesity due to excess calories E66.09 Active 734709841 Problem 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 Active 442841054 Problem RMSF (Shasta spotted 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 Active 153645171 Problem Abnormal brain MRI R90.89 Active 913204808 Problem Abnormal mammogram of left breast R92.8 Active 933219622 Problem Diarrhea, unspecified type R19.7 Active 69126250 Problem Controlled substance agreement signed Z79.899 Active 380376452 Problem Other chronic pain G89.29 Active 388997976 Problem Scoliosis of thoracolumbar spine, unspecified scoliosis type M41.9 Active 491451458 Problem 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 Active 812515624 Problem Recurrent fever A68.9 Active 292628205 Problem Epigastric abdominal pain R10.13 Active 80333350 Problem Abnormal mammogram R92.8 Active 642209740 Problem Pain in thoracic spine M54.6 Active 216748769106368 Problem Cervicalgia M54.2 Active 7738323573862 Problem Radicular low back pain M54.10 Active 99018889 Problem Muscle spasm M62.838 Active 47605723 Problem Other chronic pain G89.29 Active 575493808 Problem Fibromyalgia M79.7 Active 546361264 Problem Anxiety F41.9 Active 800415485 Problem Acute bilateral low back pain with sciatica, sciatica laterality unspecified M54.40 Active [id number] ALLERGIES No Information ENCOUNTERS Encounter Location Date Diagnosis [facility] [address] [address] Sep, [facility] [address] [id number] [id number] Sep, [facility] [id number] [place] [address]89- [address] Sep, Fibromyalgia M79.7 [facility] [address] [id number][place] [id number] Sep, Epigastric abdominal pain R10.13 and Diarrhea, unspecified type R19.7 [facility] [id number] [place] [address] [id number] Sep, Abnormal mammogram of left breast R92.8 [facility] [address] [id number] [place] [address] [id number] Sep, Abnormal mammogram R92.8 [facility] [address] [id number] [place] [address] [id number] Sep, [facility] [address] [id number] [place] [address] [id number] Aug, Abnormal mammogram R92.8 [facility] [address] [id number] [place] [address] [id number] Aug, [facility] [place] [id number] [place] [address] [id number] Aug, [facility] [address] [id number] [place] [address] [id number] Aug, Screening breast examination Z12.31 and At risk for bone density loss Z91.89 [facility] [address] [id number] [place] [address] [id number] Aug, [facility] [address] [id number][place] [id number] Aug, [facility] [place] [address] [id number], [place] [address]87[address]77[address] Aug, Other chronic pain G89.29 [facility] [place] [address] [id number], [place] [id number] Aug, [facility] [place] [address] [id number], [place] [id number] Aug, [facility] [place] [address] [id number][place] [phone] Aug, [facility] [place] [id number], [place] 627847314 Aug, Fibromyalgia M79.7 ; Anxiety F41.9 ; High risk medication use Z79.899 ; Other chronic pain G89.29 ; Recurrent fever A68.9 ; 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 and RMSF (Shasta spotted 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 [facility] [place] [id number], [place] [id number] Jul, [facility] [place] [id number], [place] [id number] Jul, [facility] [place] [id number], [place] 980376844 Jul, Muscle spasm M62.838 and Anxiety F41.9 [facility] [place] [id number], [place] [id number] Jul, [facility] [place] [id number], [place] [id number] Jul, [facility] [place] [id number], [place] [id number] Jul, [facility] [address] [id number], [place] [id number] Jul, [facility] [place] [address] [facility] [id number], [place] [phone] Jul, [facility] [place] [id number], [place] [id number] Jul, [facility] [place] [id number], [place] [id number] Jul, [facility] [place] [address] [id number] [place] [id number] Jul, [facility] [place] [address] [id number] [place] [id number] Jul, [facility] [place] [address] [id number] [place] 180667[place] Jul, [facility] [place] [address] [id number] [place] [id number] Jul, Radicular low back pain M54.10 ; Other chronic pain G89.29 and Fibromyalgia M79.7 [facility] [place] [address] [id number] [place] [id number] Jul, [facility] [place] [address] [id number] [place] [id number] Jul, [facility] [place] [address] [id number] [place] 476151498 Jul, [facility] [place] [address] [id number] [place] [id number] June, [facility] [place] [address] [id number], [place] [id number] June, [facility] [place] [address] [id number], [place] [id number] June, History of Tde-Feng 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 ; Recurrent fever A68.9 ; Other chronic pain G89.29 ; Radicular low back pain M54.10 ; Chronic tension- type headache, intractable G44.221 ; Essential hypertension I10 ; RMSF (Shasta spotted 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 and Abnormal brain MRI R90.89 [facility] [place] [address] [id number], [place] [phone] June, [facility] [address] [id number], [place] [id number] June, 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 and RMSF (Shasta spotted 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 [facility] [place] [address] [id number], [place] [id number] June, [facility] [place] [address] [id number], [place] [id number] June, [facility] [place] [address] [id number] [place] [address] [id number] June, RMSF (Shasta spotted 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 and 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 [facility] [place] [address] [id number], [place] [id number] June, [facility] [place] [address] [id number] [place] [address] [id number] June, [facility] [place] [id number] [place] [address] [id number] June, [facility] [id number] [place] [address] 82413- 2096 June, [facility] [place] [id number] [place] [address] [id number] June, [facility] [id number] [place] [address] 87252- 0461 June, Radicular low back pain M54.10 and Scoliosis of thoracolumbar spine, unspecified scoliosis type M41.9 [facility] [place] [address] [id number] [place] [address] [id number] June, [facility] [place] [id number] [place] [address] [id number] June, [facility] [place] [id number], [place] [id number] June, [facility] [place] [id number] [place] [address] [id number] June, [facility] [place] [id number], [place] [id number] June, RMSF (Shasta spotted 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 [facility] [place] [address] [id number] [place] [address] [id number] June, [facility] [place] [address] [id number], [place] [id number] June, Muscle spasm M62.838 [facility] [place] [address] [id number] [place] [address] [id number] June, [facility] [place] [id number], [place] [id number] May, [facility] [place] [id number] [place] [address] [id number] May, [facility] [place] [address] [id number], [place] [id number] May, [facility] [address] [id number], [place] [id number] May, RMSF (Shasta spotted 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 [facility] [place] [address] [id number], [place] [id number] May, Essential hypertension I10 [facility] [address] [address]30- 6[address] May, [facility] [place] [id number] [place] [address] [id number] May, Other chronic pain G89.29 [facility] [place] [id number] [place] [address] [id number] May, [facility] [place] [id number] [place] [address] [id number] May, [facility] [place] [id number] [place] [address] [id number] May, [facility] [place] [id number] [place] [address] [id number] May, [facility] [place] [id number] [place] [address] [id number] May, RMSF (Shasta spotted 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 ; Nausea R11.0 ; [...] Major depressive disorder, single episode, unspecified F32.9 [facility] [id number] [place] [address] 90743- 5990 May, Shasta spotted fever A77.0 [facility] [place] [address] [id number] [place] [id number] May, [facility] [place] [address] [id number] [place] [id number] May, [facility] [address] [facility] [id number] [place] [address]- [address] May, [facility] [place] [address] [id number] [place] [id number] May, [facility] [place] [address] [id number] [place] [id number] May, [facility] [place] [address] [id number] [place] [id number] May, [facility] [place] [address] [id number] [place] 884265581 May, [facility] [place] [address] [id number] [place] [id number] May, [facility] [place] [address] [id number] [place] [id number] May, [facility] [place] [address] [id number] [place] [id number] May, [facility] [place] [address] [id number] [place] [id number] May, [facility] [place] [address] [id number] [place] [id number] May, [facility] [place] [address] [id number] [place] [id number] May, [facility] [place] [address] [id number] [place] [id number] May, [facility] [place] [address] [id number] [place] [id number] May, [facility] [place] [address] [id number] [place] [id number] May, [facility] [place] [address] [id number] [place] [id number] May, Radicular low back pain M54.10 ; Other chronic pain G89.29 ; Fibromyalgia M79.7 ; Cervicalgia M54.2 ; Pain in thoracic spine M54.6 and Scoliosis of thoracolumbar spine, unspecified scoliosis type M41.[address] [id number], [place] [id number] May, [facility] [address] [facility] [id number], [place] [id number] Apr, Muscle spasm M62.[address] [id number], [place] [id number] Apr, [address] [id number], [place] [id number] Apr, Fibromyalgia M79.7 ; Muscle spasm M62.838 ; Other chronic pain G89.29 ; Vision changes H53.9 ; Headache above the eye region R51 ; Major depressive disorder, single episode, unspecified F32.9 ; Neck pain M54.2 and Thyroid nodule E04.[address] [id number], [place] [id number] Apr, Other chronic pain G89.[address] [id number], [place] [id number] Apr, Chronic tension-type headache, intractable G44.[address] [place] [address] [id number] Mar, Other chronic pain G89.29 ; Scoliosis of thoracolumbar spine, unspecified scoliosis type M41.9 ; Muscle spasm M62.838 ; Other chronic pain G89.29 ; Headache above the eye region R51 ; Hospital discharge follow-up Z09 ; Lumbar back pain with radiculopathy affecting right lower extremity M54.17 ; Lumbar back pain with radiculopathy affecting left lower extremity M54.17 and Myalgia M79.1 [place] [address] [facility] [id number], [place] [id number] Mar, [address] [id number], [place] [id number] Mar, Other chronic pain G89.29 [place] [id number] [place] [address] [id number] 14 Mar, 2017 Radicular low back pain M54.10 [place] [id number] [place] [address] [id number] Feb, [place] [id number] [place] [address] [id number] Feb, [place] [id number] [place] [address] [id number] Feb, Muscle spasm M62.838 [place] [id number] [place] [address] [id number] Feb, Itching L29.9 and Acute bilateral back pain, unspecified back location M54.9 [place] [id number] [place] [address] [id number] Feb, History of pneumonia Z87.01 ; Cough R05 ; Radicular low back pain M54.10 ; Scoliosis of thoracolumbar spine, unspecified scoliosis type M41.9 ; Elevated liver enzymes R74.8 ; Influenza J11.1 ; Severe single current episode of major depressive disorder, without psychotic features F32.2 and Stressful life events affecting family and household Z63.79 [place] [id number] [place] [address] [id number] Jan, Muscle spasm M62.838 [place] [id number] [place] [address] [id number] Jan, Post-nasal drainage R09.82 ; Anxiety F41.9 and Cough R05 [address] [place] [address] [id number] Jan, Severe episode of recurrent major depressive disorder, without psychotic features F33.[address] [place] [address] [id number] Jan, Muscle spasm M62.838 [place] [id number] [place] [address] [id number] Jan, Acute recurrent maxillary sinusitis J01.01 and Breast tenderness in female N64.4 [place] [id number] [place] [address] [id number] Nov, [facility] [id number], [place] [id number] Nov, [place] [id number] [place] [address] [id number] Nov, Radicular low back pain M54.10 and Muscle spasm M62.838 [place] [id number] [place] [address] [id number] Nov, [place] [id number] [place] [address] [id number] Nov, Viral disease B34.9 ; Fever, unspecified fever cause R50.9 ; Other fatigue R53.83 and Other malaise R53.81 [place] [id number] [place] [address] [id number] Nov, Thyroid nodule E04.1 [place] [id number] [place] [address] [id number] Nov, Severe episode of recurrent major depressive disorder, without psychotic features F33.2 [place] [id number] [place] [address] [id number] Nov, Acute nasopharyngitis J00 [address] [place] [address] [id number] Oct, Scoliosis of thoracolumbar spine, unspecified scoliosis type M41.9 ; Muscle spasm M62.838 ; Thyroid nodule E04.1 ; Pain in thoracic spine M54.6 ; Other chronic pain G89.29 ; Cervicalgia M54.2 ; Radicular low back pain M54.10 ; Severe episode of recurrent major depressive disorder, without psychotic features F33.2 and High risk medication use Z79.899 [facility] [address]00565100[place] 0916[address]18- [address] Oct, [address] [place] [address] [id number] Sep, Scoliosis of thoracolumbar spine, unspecified scoliosis type M41.9 ; Muscle spasm M62.838 ; Thyroid nodule E04.1 ; Pain in thoracic spine M54.6 ; Other chronic pain G89.29 ; Cervicalgia M54.2 ; Controlled substance agreement signed Z79.899 ; Vaginal yeast infection B37.3 and Radicular low back pain M54.10 [facility] [id number] [place] [address] [id number] Sep, Scoliosis of thoracolumbar spine, unspecified scoliosis type M41.9 and Muscle spasm M62.838 [place] [id number] [place] [address] [id number] Sep, Severe episode of recurrent major depressive disorder, without psychotic features F33.2 [facility] [id number] [place] [address] [id number] Aug, Severe episode of recurrent major depressive disorder, without psychotic features F33.2 ; Thyroid nodule E04.1 ; Constipation, chronic K59.09 and Non morbid obesity due to excess calories E66.09 [place] [id number] [place] [address] [id number] Aug, Non morbid obesity due to excess calories E66.09 and Thyroid nodule E04.1 [facility] [id number] [place] [address] [id number] Aug, [place] [id number] [place] [address] [id number] Jul, Severe episode of recurrent major depressive disorder, without psychotic features F33.2 ; Thyroid nodule E04.1 ; Constipation, chronic K59.09 and Non morbid obesity due to excess calories E66.09 [address] [place] [address] [id number] June, Sore throat J02.9 and Major depressive disorder, single episode, unspecified F32.9 [facility] [id number] [place] [address] 45833- 0759 May, [facility] [address] 40696- 5977 May, [facility] [id number] [place] [address] 70401- 5164 Mar, [facility] [address] 76661- 6003 14 Mar, 2013 [facility] [address] [id number] [place] [address]- 4586 Mar, [facility] [address] [id number] [place] [address]- 7366 06 Mar, 2013 [facility] [address] [id number] [place] [address]- 2536 Jan, [facility] [place] [facility] [address] [id number] [place] [address]- 8296 Jan, [facility] [address] [id number] [place] [address]- 1616 Jan, [facility] [address] [id number] [place] [address]- 2550 Jan, [facility] [address] [facility] [id number] [place] [address]- 7615 Jan, [facility] [address] [id number] [place] [address]- 7087 Jan, [facility] [address] [id number] [place] [address]- 6690 Jan, [facility] [address] [facility] [id number] [place] [address]- 0061 Jan, [facility] [address] [id number] [place] [address]- 5545 Dec, [facility] [place] [facility] [address] [id number] [place] [address]- 4126 Dec, [facility] [place] [facility] [address] [id number] [place] [address]- 5034 Apr, [facility] [place] [facility] [address] [id number] [place] [address]- 7604 Jan, [facility] [place] [facility] [address] [facility] [id number] [place] [address]- 3985 Jan, [facility] [place] [facility] [address] [id number] [place] [address]- 0887 Dec, [facility] [place] [facility] [address] [id number] [place] [address]- 7691 Dec, [facility] [place] [facility] [address] [id number] [place] [address]- 4218 Nov, [facility] [place] [facility] [address] [id number] [place] [address]- 0663 Nov, [facility] [place] [facility] [address] [id number] [place] [address]- 1847 Sep, [facility] [place] [facility] [address] [id number] [place] [address]- 2321 Sep, [facility] [place] [address] [facility] [id number], [place] [id number] Sep, [facility] [place] [address] [id number], [place] [id number] Sep, [facility] [place] [facility] [address] [id number], [place] [address]- 6005 Sep, [facility] [place] [facility] [address] [facility] [id number], [place] [address]- 3490 Sep, [facility] [place] [address] [facility] [id number], [place] [id number] Aug, [facility] [place] [facility] [address] [id number], [place] [address] Aug, [facility] [place] [facility] [address] [facility] [id number], [place] [address] Aug, [facility] [place] [facility] [address] [id number], [place] [address] Aug, [facility] [address] [facility] [id number][place] [id number] Jul, [facility] [place] [facility] [address] [facility] [id number] [place] [address] Jul, [facility] [place] [facility] [address] [facility] [id number], [place] [address] Jul, [facility] [address] [facility] [id number] [place] [address] Jul, [facility] [address] [facility] [id number] [place] [address] May, [facility] [address] [facility] [id number] [place] [address] Feb, [facility] [address] [facility] [id number] [place] [address] Jan, [facility] [address] [facility] [id number] [place] [address], [place] [address] Jan, [facility] [address] [facility] [id number] [place] [address] Dec, [facility] [id number] [place] [address] Dec, [facility] [address] [facility] [id number], [place] [address] Dec, [facility] [id number] [address] Nov, [facility] [address] [facility] [id number] [address] [address] Nov, [facility] [id number], [place] [address] Sep, [facility] [address] [facility] [id number], [place] [address] Jul, [facility] [address] [facility] [id number], [place] [address] Mar, [facility] [address] [facility] [id number], [place] [address] Nov, [facility] [address] [facility] [id number], [place] [address] Nov, IMMUNIZATIONS No Known Immunizations SOCIAL HISTORY Never Assessed REASON FOR VISIT Anxiety Med PLAN OF CARE VITAL SIGNS MEDICATIONS Unknown Medications RESULTS No Results PROCEDURES No Known procedures INSTRUCTIONS MEDICATIONS ADMINISTERED No Known Medications MEDICAL (GENERAL) HISTORY Type Description Date Medical History Fibromyalgia Medical History Chronic Consipation Medical History 08/16/16 [facility] general surgery center, Dr. Jimenez, hemorrhage of [...] Medical History MRI- Brain 05/29/2017 Medical History [place] Spotted Tick Fever Medical History Ebstein Feng Virus Surgical History hysterectomy, total with unilateral salpingo-oophorectomy ( USO) Surgical History cholecystectomy Surgical History tonsillectomy and adenoidectomy Surgical History hemorrhoidectomy Surgical History EGD Surgical History colonoscopy 08/25/16 Hospitalization History fever, HTN, abnormal head [facility] 05/28/17
--- OUTSIDE RECORDS SUMMARY | 2017-11-06 12:32 | XMS REPORT ---
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 Name Role Phone MICHAEL CORREIA Unavailable PROBLEMS Type Condition ICD9-CM Code YKG22-AK Code Onset Dates Condition Status SNOMED Code Problem Major depressive disorder, single episode, unspecified F32.9 Active 38385626 Problem Thyroid nodule E04.1 Active 93266694 Problem Severe single current episode of major depressive disorder, without psychotic features F32.2 Active 31785386 Problem Severe episode of recurrent major depressive disorder, without psychotic features F33.2 Active 367619252939 Problem Chronic tension-type headache, intractable G44.221 Active 387897607 Problem Constipation, chronic K59.09 Active 728945345 Problem Essential hypertension I10 Active 48593939 Problem Non morbid obesity due to excess calories E66.09 Active 810541425 Problem 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 Active 898829242 Problem 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 Active 626391856 Problem Abnormal brain MRI R90.89 Active 682318538 Problem Abnormal mammogram of left breast R92.8 Active 897243183 Problem Diarrhea, unspecified type R19.7 Active 98383491 Problem Controlled substance agreement signed Z79.899 Active 670694098 Problem Other chronic pain G89.29 Active 664934940 Problem Scoliosis of thoracolumbar spine, unspecified scoliosis type M41.9 Active 804672523 Problem 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 Active 074025866 Problem Recurrent fever A68.9 Active 405922336 Problem Epigastric abdominal pain R10.13 Active 01692283 Problem Abnormal mammogram R92.8 Active 879521684 Problem Pain in thoracic spine M54.6 Active 543210340550204 Problem Cervicalgia M54.2 Active 8512664968877 Problem Radicular low back pain M54.10 Active 60575504 Problem Muscle spasm M62.838 Active 30067564 Problem Other chronic pain G89.29 Active 361009500 Problem Fibromyalgia M79.7 Active 207615395 Problem Anxiety F41.9 Active 872159060 Problem Acute bilateral low back pain with sciatica, sciatica laterality unspecified M54.40 Active [id number] ALLERGIES No Information ENCOUNTERS Encounter Location Date [facility] [address] [id number] [place] [id number] Sep, [facility] [address] [address] Sep, Fibromyalgia M79.7 [facility] [id number] [place] [address] [id number] Sep, Epigastric abdominal pain R10.13 and Diarrhea, unspecified type R19.7 [facility] [id number] [place] [address] [id number] Sep, Abnormal mammogram of left breast R92.8 [facility] [id number] [place] [address] [id number] Sep, Abnormal mammogram R92.8 [facility] [id number] [place] [address] [id number] Sep, [facility] [id number] [place] [address] [id number] Aug, Abnormal mammogram R92.8 [facility] [id number] [place] [id number] Aug, [facility] [place] [address] [id number] [place] [address] [id number] Aug, [facility] [id number] [place] [address] [id number] Aug, Screening breast examination Z12.31 and At risk for bone density loss Z91.89 [facility] [address] [id number] [place] [address] [id number] Aug, [facility] [id number] [place] [id number] Aug, [facility] [address] [id number] [place] [address] [id number] Aug, Other chronic pain G89.29 [facility] [place] [address] [id number] [place] [id number] Aug, [facility] [place] [address] [id number] [place] [id number] Aug, [facility] [place] [address] [id number] [place] [id number] Aug, [facility] [place] [address] [id number] [place] [address] [id number] Aug, Fibromyalgia M79.7 ; Anxiety F41.9 ; High risk medication use Z79.899 ; Other chronic pain G89.29 ; Recurrent fever A68.9 ; 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 and 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 [facility] [place] [address] [id number] [place] [id number] Jul, [facility] [place] [address] [id number] [place] [address] [id number] Jul, [facility] [place] [address] [id number] [place] [id number] Jul, Muscle spasm M62.838 and Anxiety F41.9 [facility] [place] [address] [id number] [place] [id number] Jul, [facility] [place] [address] [id number] [place] [id number] Jul, [facility] [place] [address] [id number] [place] [id number] Jul, [facility] [address] [id number] [place] [id number] Jul, [facility] [place] [address] [id number] [place] [phone] Jul, [facility] [place] [address] [id number] [id number] Jul, [facility] [place] [address] [id number] [place] [id number] Jul, [facility] [place] [address] [id number] [place] [id number] Jul, [facility] [place] [address] [id number] [place] [id number] Jul, [facility] [place] [address] [id number] [place] [id number] Jul, [facility] [place] [address] [id number] [place] [id number] Jul, Radicular low back pain M54.10 ; Other chronic pain G89.29 and Fibromyalgia M79.7 [facility] [place] [address] [id number] [place] [id number] Jul, [facility] [place] [address] [id number] [place] [id number] Jul, [facility] [place] [address] [id number] [place] [id number] Jul, [facility] [place] [address] [id number] [place] [address] [id number] June, [facility] [place] [address] [id number] [place] [id number] June, [facility] [place] [address] [id number] [place] [id number] June, 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 ; Recurrent fever A68.9 ; Other chronic pain G89.29 ; Radicular low back pain M54.10 ; Chronic tension- type headache, intractable G44.221 ; Essential hypertension I10 ; 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 and Abnormal brain MRI R90.89 [facility] [place] [address] [id number] [place] [id number] June, [address] [id number] [place] [phone] June, 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 and 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 [facility] [place] [address] [id number] [place] [phone] June, [facility] [place] [address] [id number] [place] [phone] June, [facility] [place] [address] [id number] [place] [address] [id number] June, 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 and 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 [facility] [place] [id number] [place] [address] [id number] June, [facility] [place] [address] [id number] [place] [address] [id number] June, [facility] [place] [id number] [place] [address] [id number] June, [facility] [id number] [place] [address]23- 5766 June, [facility] [place] [id number] [place] [address] [id number] June, [facility] [id number] [place] [address] 070032- 1667 June, Radicular low back pain M54.10 and Scoliosis of thoracolumbar spine, unspecified scoliosis type M41.9 [facility] [place] [address] [id number] [place] [id number] June, [facility] [place] [address] [id number] [place] [address] [id number] June, [facility] [place] [address] [id number] [place] [address] [id number] June, [facility] [place] [id number] [place] [address] [id number] June, [facility] [place] [id number] [place] [address] [id number] June, 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 [facility] [place] [address] [id number] [place] [phone] June, [facility] [place] [address] [id number] [place] [address] [id number] June, Muscle spasm M62.838 [facility] [place] [address] [id number] [place] [address] [id number] June, [facility] [place] [id number] [place] [address] [id number] May, [facility] [place] [address] [id number] [place] [id number] May, [facility] [place] [address] [id number] [place] [address] [id number] May, [facility] [address] [id number] [place] [phone] May, 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 [facility] [address] [id number] [place] [id number] May, Essential hypertension I10 [facility] [id number] [place] [address] 97032- 1821 May, [facility] [place] [address] [id number] [place] [address] [id number] May, Other chronic pain G89.29 [facility] [place] [address] [id number] [place] [address] [id number] May, [facility] [place] [address] [id number] [place] [address] [id number] May, [facility] [place] [address] [id number] [place] [address] [id number] May, [facility] [place] [address] [id number] [place] [address] [id number] May, [facility] [place] [address] [id number] [place] [address] [id number] May, 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 ; Nausea R11.0 ; [...] depressive disorder, single episode, unspecified F32.9 [facility] [address] [place] [address] 16843- 5328 May, Tamarac spotted fever A77.0 [facility] [place] [address] [id number] [place] [id number] May, [facility] [place] [address] [id number] [place] [id number] May, [facility] [address] [id number] [place] [address] May, [facility] [place] [address] [id number] [place] [id number] May, [facility] [place] [address] [id number] [place] [id number] May, [facility] [place] [address] [id number] [place] [id number] May, [facility] [place] [address] [id number] [place] [id number] May, [facility] [place] [address] [id number] [place] [id number] May, [facility] [place] [address] [id number] [place] [id number] May, [facility] [place] [address] [id number] [place] [id number] May, [facility] [place] [address] [id number] [place] [id number] May, [facility] [place] [address] [id number] [place] [id number] May, [facility] [place] [address] [id number] [place] [id number] May, [facility] [place] [address] [id number] [place] [id number] May, [facility] [place] [address] [id number] [place] [id number] May, [facility] [place] [address] [id number] [place] [id number] May, [facility] [place] [address] [id number] [place] [id number] May, Radicular low back pain M54.10 ; Other chronic pain G89.29 ; Fibromyalgia M79.7 ; Cervicalgia M54.2 ; Pain in thoracic spine M54.6 and Scoliosis of thoracolumbar spine, unspecified scoliosis type M41.9 [facility] [address] [id number] [place] [id number] May, [address] [facility] [id number] [place] [phone] Apr, Muscle spasm M62.[address] [id number] [place] [id number] Apr, [address] [place] [address] [id number] Apr, Fibromyalgia M79.7 ; Muscle spasm M62.838 ; Other chronic pain G89.29 ; Vision changes H53.9 ; Headache above the eye region R51 ; Major depressive disorder, single episode, unspecified F32.9 ; Neck pain M54.2 and Thyroid nodule E04.[address] [id number] [place] [id number] Apr, Other chronic pain G89.29 [address] [place] [address] [id number] Apr, Chronic tension-type headache, intractable G44.221 [address] [place] [address] [id number] Mar, Other chronic pain G89.29 ; Scoliosis of thoracolumbar spine, unspecified scoliosis type M41.9 ; Muscle spasm M62.838 ; Other chronic pain G89.29 ; Headache above the eye region R51 ; Hospital discharge follow-up Z09 ; Lumbar back pain with radiculopathy affecting right lower extremity M54.17 ; Lumbar back pain with radiculopathy affecting left lower extremity M54.17 and Myalgia M79.1 [facility] [address] [facility] [id number] [place] [id number] Mar, [address] [id number] Mar, Other chronic pain G89.[address] [id number] [place] [id number] Mar, Radicular low back pain M54.10 [facility] [id number] [place] [address] [id number] Feb, [id number] [place] [address] [id number] Feb, [id number] [place] [address] [id number] Feb, Muscle spasm M62.838 [id number] [place] [address] [id number] Feb, Itching L29.9 and Acute bilateral back pain, unspecified back location M54.9 [address] [id number] [place] [address] [id number] Feb, History of pneumonia Z87.01 ; Cough R05 ; Radicular low back pain M54.10 ; Scoliosis of thoracolumbar spine, unspecified scoliosis type M41.9 ; Elevated liver enzymes R74.8 ; Influenza J11.1 ; Severe single current episode of major depressive disorder, without psychotic features F32.2 and Stressful life events affecting family and household Z63.79 [id number] [place] [address] [id number] Jan, Muscle spasm M62.838 [id number] [place] [address] [id number] Jan, Post-nasal drainage R09.82 ; Anxiety F41.9 and Cough R05 [id number] [place] [address] [id number] Jan, Severe episode of recurrent major depressive disorder, without psychotic features F33.2 [address] [id number] [place] [address] [id number] Jan, Muscle spasm M62.838 [address] [place] [address] [id number] Jan, Acute recurrent maxillary sinusitis J01.01 and Breast tenderness in female N64.4 [id number] [place] [address] [id number] Nov, [address] [place] [address] [id number] Nov, [id number] [id number] Nov, Radicular low back pain M54.10 and Muscle spasm M62.838 [facility] [id number] [place] [address] [id number] Nov, [id number] [place] [address] [id number] Nov, Viral disease B34.9 ; Fever, unspecified fever cause R50.9 ; Other fatigue R53.83 and Other malaise R53.81 [address] [id number] [place] [address] [id number] Nov, Thyroid nodule E04.1 [id number] [place] [address] [id number] Nov, Severe episode of recurrent major depressive disorder, without psychotic features F33.2 [id number] [place] [address] [id number] Nov, Acute nasopharyngitis J00 [address] [place] [address] [id number] Oct, Scoliosis of thoracolumbar spine, unspecified scoliosis type M41.9 ; Muscle spasm M62.838 ; Thyroid nodule E04.1 ; Pain in thoracic spine M54.6 ; Other chronic pain G89.29 ; Cervicalgia M54.2 ; Radicular low back pain M54.10 ; Severe episode of recurrent major depressive disorder, without psychotic features F33.2 and High risk medication use Z79.899 [facility] [address] [id number] [address]- [address] Oct, [id number] [id number] Sep, Scoliosis of thoracolumbar spine, unspecified scoliosis type M41.9 ; Muscle spasm M62.838 ; Thyroid nodule E04.1 ; Pain in thoracic spine M54.6 ; Other chronic pain G89.29 ; Cervicalgia M54.2 ; Controlled substance agreement signed Z79.899 ; Vaginal yeast infection B37.3 and Radicular low back pain M54.[address] [place] [address] [id number] Sep, Scoliosis of thoracolumbar spine, unspecified scoliosis type M41.9 and Muscle spasm M62.838 [address] [place] [address] [id number] Sep, Severe episode of recurrent major depressive disorder, without psychotic features F33.2 [id number] [place] [address] [id number] Aug, Severe episode of recurrent major depressive disorder, without psychotic features F33.2 ; Thyroid nodule E04.1 ; Constipation, chronic K59.09 and Non morbid obesity due to excess calories E66.09 [id number] [place] [address] [id number] Aug, Non morbid obesity due to excess calories E66.09 and Thyroid nodule E04.1 [id number] [place] [address] [id number] Aug, [id number] [place] [address] [id number] Jul, Severe episode of recurrent major depressive disorder, without psychotic features F33.2 ; Thyroid nodule E04.1 ; Constipation, chronic K59.09 and Non morbid obesity due to excess calories E66.09 [id number] [place] [address] [id number] June, Sore throat J02.9 and Major depressive disorder, single episode, unspecified F32.9 [facility] [id number] [place] [address] [id number] [id number] May, [facility] [id number] [place] [address] 78457- 8601 May, [facility] [address] [id number] 9580 Mar, [facility] [id number] [place] [address] [id number]- 0805 Mar, [facility] [address] [address]99- 3735 Mar, [facility] [address] [id number] [place] [address]- 9086 Mar, [facility] [address] [id number] [place]- 0436 Jan, [facility] [address] [id number] [place] [address]- 6526 Jan, [facility] [address] [id number] [place] [address]- 2178 Jan, [facility] [address] [id number] [place] [address]- 3618 Jan, [facility] [address] [id number] [place] [address]- 7536 Jan, [facility] [address] [facility] [id number] [place] [address]- 4691 Jan, [facility] [address] [id number] [place] [address]- 5770 Jan, [facility] [address] [id number] [place] [address]- 5435 Jan, [facility] [address] [facility] [id number] [place] [address]- 1326 Dec, [facility] [address] [id number] [place] [address]- 2074 Dec, [facility] [place] [facility] [address] [id number] [place] [address]- 9699 Apr, [facility] [place] [facility] [address] [id number] [place] [address]- 0371 Jan, [facility] [place] [facility] [address] [id number] [place] [address]- 0270 Jan, [facility] [address] [facility] [id number] [place] [address]- 8603 Dec, [facility] [place] [facility] [address] [id number] [place] [address]- 0484 Dec, [facility] [place] [facility] [address] [id number] [place] [address]- 8230 Nov, [facility] [place] [facility] [address] [id number] [place] [address]- 8114 Nov, [facility] [place] [facility] [address] [id number] [place] [address]- 4850 Sep, [facility] [place] [facility] [address] [id number] [place] [address]- 7896 Sep, [facility] [place] [address] [id number] [place] [id number] Sep, [facility] [place] [address] [facility] [id number] [place] [id number] Sep, [facility] [place] [facility] [address] [id number] [place] [address] Sep, [facility] [place] [facility] [address] [id number] [place] [address] Sep, [facility] [address] [id number] [place] [id number] Aug, [facility] [place] [facility] [address] [id number] [place] [address] Aug, [facility] [place] [facility] [address] [id number] [place] [address] Aug, [facility] [place] [facility] [address] [id number] [place] [address] Aug, [facility] [address] [id number] [place] [id number] Jul, [facility] [place] [facility] [address] [id number] [place] [address] Jul, [facility] [place] [facility] [address] [id number] [place] [address] Jul, [facility] [place] [facility] [id number] [address] Jul, [facility] [id number] [address] May, [facility] [id number] [address] Feb, [facility] [id number] [address] Jan, [facility] [id number] [address] Jan, [facility] [id number] [place] [address] Dec, [facility] [id number] [address] Dec, [facility] [id number] [place] [address] Dec, [facility] [id number] [address] Nov, [facility] [id number] [address] Nov, [facility] [id number], [place] [address] Sep, [facility] [id number] [address] Jul, [facility] [id number], [place] [address] Mar, [facility] [id number] [place] [address] Nov, [facility] [id number], [place] [address] Nov, IMMUNIZATIONS No Known Immunizations SOCIAL HISTORY Never Assessed REASON FOR VISIT Re: RE:FY only PLAN OF CARE VITAL SIGNS MEDICATIONS Unknown Medications RESULTS No Results PROCEDURES No Known procedures INSTRUCTIONS MEDICATIONS ADMINISTERED No Known Medications MEDICAL (GENERAL) HISTORY Type Description Date Medical History Fibromyalgia Medical History Chronic Consipation Medical History 08/16/16 [facility] general surgery center, Dr. Jimenez, [...] Medical History MRI- Brain 05/29/2017 Medical History [place] Spotted Tick Fever Medical History Ebstein Feng Virus Surgical History hysterectomy, total with unilateral salpingo-oophorectomy ( USO) Surgical History cholecystectomy Surgical History tonsillectomy and adenoidectomy Surgical History hemorrhoidectomy Surgical History EGD Surgical History colonoscopy 08/25/16 Hospitalization History fever, HTN, abnormal head [facility] 05/28/17
--- OUTSIDE RECORDS SUMMARY | 2017-11-06 12:32 | XMS REPORT ---
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 Name Role Phone MICHAEL CORREIA Unavailable PROBLEMS Type Condition ICD9-CM Code QBS96-XG Code Onset Dates Condition Status SNOMED Code Problem Major depressive disorder, single episode, unspecified F32.9 Active 18781101 Problem Thyroid nodule E04.1 Active 24588139 Problem Severe single current episode of major depressive disorder, without psychotic features F32.2 Active 73747781 Problem Severe episode of recurrent major depressive disorder, without psychotic features F33.2 Active 755046761171 Problem Chronic tension-type headache, intractable G44.221 Active 890381932 Problem Constipation, chronic K59.09 Active 361802524 Problem Essential hypertension I10 Active 42119011 Problem Non morbid obesity due to excess calories E66.09 Active 665362035 Problem 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 Active 684238066 Problem RMSF ([place] spotted 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 Active 396926582 Problem Abnormal brain MRI R90.89 Active 776186823 Problem Abnormal mammogram of left breast R92.8 Active 331481880 Problem Diarrhea, unspecified type R19.7 Active 96069151 Problem Controlled substance agreement signed Z79.899 Active 991445455 Problem Other chronic pain G89.29 Active 259961111 Problem Scoliosis of thoracolumbar spine, unspecified scoliosis type M41.9 Active 811896209 Problem 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 Active 227115703 Problem Recurrent fever A68.9 Active 409829860 Problem Epigastric abdominal pain R10.13 Active 74761478 Problem Abnormal mammogram R92.8 Active 385991837 Problem Pain in thoracic spine M54.6 Active 815233456000704 Problem Cervicalgia M54.2 Active 9042773970358 Problem Radicular low back pain M54.10 Active 69177040 Problem Muscle spasm M62.838 Active 62407279 Problem Other chronic pain G89.29 Active 464831972 Problem Fibromyalgia M79.7 Active 259840808 Problem Anxiety F41.9 Active 666534667 Problem Acute bilateral low back pain with sciatica, sciatica laterality unspecified M54.40 Active 792094855 ALLERGIES No Information ENCOUNTERS Encounter Location Date Diagnosis [facility] [id number] [id number] Sep, [facility] [address] [id number] [id number] Sep, [facility] [id number] [place] [address] Sep, Fib[address] M79.7 [facility] [address] [id number][place] [id number] Sep, Epigastric abdominal pain R10.13 and Diarrhea, unspecified type R19.7 [facility] [id number] [place] [address] [id number] Sep, Abnormal mammogram of left breast R92.8 [facility] [id number] [place] [address] [id number] Sep, Abnormal mammogram R92.8 [facility] [address] [id number] [place] [address] [id number] Sep, [facility] [id number] [place] [address] [id number] Aug, Abnormal mammogram R92.8 [facility] [id number] [place] [address] [id number] Aug, [facility] [place] [id number] [place] [address] [id number] Aug, [facility] [address] [id number] [place] [address] [id number] Aug, Screening breast examination Z12.31 and At risk for bone density loss Z91.89 [facility] [address] [id number] [place] [address] [id number] Aug, [facility] [address] [id number] [id number] Aug, [facility] [place] [address] [id number][place] [id number] Aug, Other chronic pain G89.29 [facility] [place] [address] [id number], [place] [phone] Aug, [facility] [place] [address] [id number], [place] [id number] Aug, [facility] [place] [address] [id number], [place] [phone] Aug, [facility] [place] [id number], [place] [id number] Aug, Fibromyalgia M79.7 ; Anxiety F41.9 ; High risk medication use Z79.899 ; Other chronic pain G89.29 ; Recurrent fever A68.9 ; 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 and RMSF ([place] spotted 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 [facility] [place] [id number], [place] [id number] Jul, [facility] [place] [id number], [place] [id number] Jul, [facility] [place] [id number], [place] [id number] Jul, Muscle spasm M62.838 and Anxiety F41.9 [facility] [place] [id number], [place] [id number] Jul, [facility] [place] [id number], [place] [id number] Jul, [facility] [place] [id number], [place] [id number] Jul, [facility] [address] [id number], [place] [id number] Jul, [facility] [place] [address] [facility] [id number], [place] [id number] Jul, [facility] [place] [id number], [place] [id number] Jul, [facility] [place] [id number], [place] [id number] Jul, [facility] [place] [address] [id number] [place] [id number] Jul, [facility] [place] [address] [id number] [place] [phone] Jul, [facility] [place] [address] [id number] [place] [id number] Jul, [facility] [place] [address] [id number] [place] [id number] Jul, Radicular low back pain M54.10 ; Other chronic pain G89.29 and Fibromyalgia M79.7 [facility] [place] [address] [id number] [place] [id number] Jul, [facility] [place] [address] [id number] [place] [phone] Jul, [facility] [place] [address] [id number] [place] [id number] Jul, [facility] [place] [address] [id number] [place] [id number] June, [facility] [place] [address] [id number], [place] [id number] June, [facility] [place] [address] [id number], [place] [id number] June, 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 ; Recurrent fever A68.9 ; Other chronic pain G89.29 ; Radicular low back pain M54.10 ; Chronic tension- type headache, intractable G44.221 ; Essential hypertension I10 ; RMSF ([place] spotted 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 and Abnormal brain MRI R90.89 [facility] [place] [address] [id number], [place] [id number] June, [facility] [address] [id number], [place] [id number] June, History of Tde-Feng 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 and RMSF ([place] spotted 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 [facility] [place] [address] [id number], [place] [phone] June, [facility] [place] [address] [id number], [place] [phone] June, [facility] [place] [id number] [place] [address] [id number] June, RMSF ([place] spotted 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 and 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 [facility] [place] [address] [id number], [place] [id number] June, [facility] [place] [address] [id number] [place] [address] [id number] June, [facility] [place] [id number] [place] [address] [id number] June, [facility] [id number] [place] [address] June, [facility] [place] [id number] [place] [address] [id number] June, [facility] [id number] [place] [address] June, Radicular low back pain M54.10 and Scoliosis of thoracolumbar spine, unspecified scoliosis type M41.9 [facility] [place] [address] [id number] [place] [address] [id number] June, [facility] [place] [id number] [place] [address] [id number] June, [facility] [place] [id number], [place] [phone] June, [facility] [place] [id number] [place] [address] [id number] June, [facility] [place] [id number], [place] [phone] June, RMSF ([place] spotted 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 [facility] [place] [address] [place] [address] [id number] [place] [address] [id number] June, [facility] [place] [address] [id number], [place] [id number] June, Muscle spasm M62.838 [facility] [place] [address] [id number] [place] [address] [id number] June, [facility] [place] [id number], [place] [id number] May, [facility] [place] [id number] [place] [address] [id number] May, [facility] [place] [address] [id number], [place] [phone] May, [facility] [place] [address] [id number], [place] [phone] May, RMSF ([place] spotted 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 [facility] [place] [address] [id number], [place] [phone] May, Essential hypertension I10 [facility] [address] [address] May, [facility] [place] [id number] [place] [address] [id number] May, Other chronic pain G89.29 [facility] [place] [id number] [place] [address] [id number] May, [facility] [place] [id number] [place] [address] [id number] May, [facility] [place] [id number] [place] [address] [id number] May, [facility] [place] [id number] [place] [address] [id number] May, [facility] [place] [id number] [place] [address] [phone] May, RMSF ([place] spotted 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 ; Nausea R11.0 ; [...] Major depressive disorder, single episode, unspecified F32.9 [facility] [id number] [place] [address]- 39[address] May, [place] spotted fever A77.0 [facility] [place] [address] [id number] [place] [phone] May, [facility] [place] [address] [id number] [place] [phone] May, [facility] [address] [facility] [id number] [place] [address]- [address] May, [facility] [place] [address] [id number] [place] [id number] May, [facility] [place] [address] [id number] [place] [id number] May, [facility] [place] [address] [id number] [place] [id number] May, [facility] [place] [address] [id number] [place] [id number] May, [facility] [place] [address] [id number] [place] [id number] May, [facility] [place] [address] [id number] [place] [id number] May, [facility] [place] [address] [id number] [place] [id number] May, [facility] [place] [address] [id number] [place] [id number] May, [facility] [place] [address] [id number] [place] [id number] May, [facility] [place] [address] [id number] [place] [id number] May, [facility] [place] [address] [id number] [place] [id number] May, [facility] [place] [address] [id number] [place] [id number] May, [facility] [place] [address] [id number] [place] [id number] May, [facility] [place] [address] [id number] [place] [id number] May, Radicular low back pain M54.10 ; Other chronic pain G89.29 ; Fibromyalgia M79.7 ; Cervicalgia M54.2 ; Pain in thoracic spine M54.6 and Scoliosis of thoracolumbar spine, unspecified scoliosis type M41.[address] [id number], [place] [id number] May, [facility] [address] [facility] [id number], [place] [phone] Apr, Muscle spasm M62.[address] [id number], [place] [id number] Apr, [address] [id number], [place] [id number] Apr, Fibromyalgia M79.7 ; Muscle spasm M62.838 ; Other chronic pain G89.29 ; Vision changes H53.9 ; Headache above the eye region R51 ; Major depressive disorder, single episode, unspecified F32.9 ; Neck pain M54.2 and Thyroid nodule E04.[address] [id number], [place] [id number] Apr, Other chronic pain G89.[address] [id number], [place] [id number] Apr, Chronic tension-type headache, intractable G44.[address] [place] [address] [id number] Mar, Other chronic pain G89.29 ; Scoliosis of thoracolumbar spine, unspecified scoliosis type M41.9 ; Muscle spasm M62.838 ; Other chronic pain G89.29 ; Headache above the eye region R51 ; Hospital discharge follow-up Z09 ; Lumbar back pain with radiculopathy affecting right lower extremity M54.17 ; Lumbar back pain with radiculopathy affecting left lower extremity M54.17 and Myalgia M79.1 [place] [address] [facility] [id number], [place] [id number] Mar, [address] [id number], [place] [id number] Mar, Other chronic pain G89.29 [address] [id number] [place] [address] [id number] 14 Mar, 2017 Radicular low back pain M54.10 [place] [id number] [place] [address] [id number] Feb, [place] [id number] [place] [address] [id number] Feb, [place] [id number] [place] [address] [id number] Feb, Muscle spasm M62.838 [address] [id number] [place] [address] [id number] Feb, Itching L29.9 and Acute bilateral back pain, unspecified back location M54.9 [address] [id number] [place] [address] [id number] Feb, History of pneumonia Z87.01 ; Cough R05 ; Radicular low back pain M54.10 ; Scoliosis of thoracolumbar spine, unspecified scoliosis type M41.9 ; Elevated liver enzymes R74.8 ; Influenza J11.1 ; Severe single current episode of major depressive disorder, without psychotic features F32.2 and Stressful life events affecting family and household Z63.79 [address] [id number] [place] [address] [id number] Jan, Muscle spasm M62.838 [address] [id number] [place] [address] [id number] Jan, Post-nasal drainage R09.82 ; Anxiety F41.9 and Cough R05 [address] [place] [address] [id number] Jan, Severe episode of recurrent major depressive disorder, without psychotic features F33.2 [address] [place] [address] [id number] Jan, Muscle spasm M62.838 [address] [id number] [place] [address] [id number] Jan, Acute recurrent maxillary sinusitis J01.01 and Breast tenderness in female N64.4 [place] [id number] [place] [address] [id number] Nov, [facility] [id number], [place] [id number] Nov, [place] [id number] [place] [address] [id number] Nov, Radicular low back pain M54.10 and Muscle spasm M62.838 [place] [id number] [place] [address] [id number] Nov, [place] [address] [place] [address] [id number] Nov, Viral disease B34.9 ; Fever, unspecified fever cause R50.9 ; Other fatigue R53.83 and Other malaise R53.81 [place] [id number] [place] [address] [id number] Nov, Thyroid nodule E04.1 [place] [id number] [place] [address] [id number] Nov, Severe episode of recurrent major depressive disorder, without psychotic features F33.2 [address] [address] [place] [address] [id number] Nov, Acute nasopharyngitis J00 [address] [place] [address] [id number] Oct, Scoliosis of thoracolumbar spine, unspecified scoliosis type M41.9 ; Muscle spasm M62.838 ; Thyroid nodule E04.1 ; Pain in thoracic spine M54.6 ; Other chronic pain G89.29 ; Cervicalgia M54.2 ; Radicular low back pain M54.10 ; Severe episode of recurrent major depressive disorder, without psychotic features F33.2 and High risk medication use Z79.899 [facility] [address]00565100[place] 00716069- [address] Oct, [address] [place] [address] [id number] Sep, Scoliosis of thoracolumbar spine, unspecified scoliosis type M41.9 ; Muscle spasm M62.838 ; Thyroid nodule E04.1 ; Pain in thoracic spine M54.6 ; Other chronic pain G89.29 ; Cervicalgia M54.2 ; Controlled substance agreement signed Z79.899 ; Vaginal yeast infection B37.3 and Radicular low back pain M54.10 [facility] [id number] [place] [address] [id number] Sep, Scoliosis of thoracolumbar spine, unspecified scoliosis type M41.9 and Muscle spasm M62.838 [address] [place] [id number] [place] [address] [id number] Sep, Severe episode of recurrent major depressive disorder, without psychotic features F33.2 [facility] [id number] [place] [address] [id number] Aug, Severe episode of recurrent major depressive disorder, without psychotic features F33.2 ; Thyroid nodule E04.1 ; Constipation, chronic K59.09 and Non morbid obesity due to excess calories E66.09 [address] [id number] [place] [address] [id number] Aug, Non morbid obesity due to excess calories E66.09 and Thyroid nodule E04.1 [facility] [id number] [place] [address] [id number] Aug, [place] [id number] [place] [address] [id number] Jul, Severe episode of recurrent major depressive disorder, without psychotic features F33.2 ; Thyroid nodule E04.1 ; Constipation, chronic K59.09 and Non morbid obesity due to excess calories E66.09 [address] [place] [address] [id number] June, Sore throat J02.9 and Major depressive disorder, single episode, unspecified F32.9 [facility] [id number] [place] [address] 36[address]- 0[address] May, [facility] [address] [address]- 8[address] May, [facility] [id number] [place] [address] 14924- 7795 Mar, [facility] [address] [address]- [address] 14 Mar, 2013 [facility] [address] [id number] [place] [address]- [address] Mar, [facility] [address] [id number] [place] [address]- 3556 06 Mar, 2013 [facility] [address] [id number] [place] [address]- 7136 Jan, [facility] [place] [facility] [address] [id number] [place] [address]- 8486 Jan, [facility] [address] [id number] [place] [address]- 5966 Jan, [facility] [address] [id number] [place] [address]- 3850 Jan, [facility] [address] [facility] [id number] [place] [address]- 3928 Jan, [facility] [address] [id number] [place] [address]- 8110 Jan, [facility] [address] [id number] [place] [address]- 7502 Jan, [facility] [address] [facility] [id number] [place] [address]- 8370 Jan, [facility] [address] [id number] [place] [address]- 2994 Dec, [facility] [place] [facility] [address] [id number] [place] [address]- 0932 Dec, [facility] [place] [facility] [address] [id number] [place] [address]- 6987 Apr, [facility] [place] [facility] [address] [id number] [place] [address]- 0751 Jan, [facility] [place] [facility] [address] [facility] [id number] [place] [address]- 8945 Jan, [facility] [place] [facility] [address] [id number] [place] [address]- 2912 Dec, [facility] [place] [facility] [address] [id number] [place] [address]- 3204 Dec, [facility] [place] [facility] [address] [id number] [place] [address]- 3832 Nov, [facility] [place] [facility] [address] [id number] [place] [address]- 5054 Nov, [facility] [place] [facility] [address] [id number] [place] [address]- 3444 Sep, [facility] [place] [facility] [address] [id number] [place] [address]- 1216 Sep, [facility] [place] [address] [facility] [id number][place] [id number] Sep, [facility] [place] [address] [id number], [place] [id number] Sep, [facility] [place] [facility] [address] [id number], [place] [address] Sep, [facility] [place] [facility] [address] [facility] [id number], [place] [address] Sep, [facility] [address] [facility] [id number][place] [id number] Aug, [facility] [place] [facility] [address] [id number], [place] [address] Aug, [facility] [place] [facility] [address] [facility] [id number][place] [address] Aug, [facility] [place] [facility] [address] [id number], [place] [address] Aug, [facility] [address] [facility] [id number][place] [id number] Jul, [facility] [place] [facility] [address] [facility] [id number] [place] [address] Jul, [facility] [place] [facility] [address] [facility] [id number], [place] [address] Jul, [facility] [address] [facility] [id number] [place] [address] Jul, [facility] [address] [facility] [id number] [place] [address] May, [facility] [address] [facility] [id number] [place] [address] Feb, [facility] [address] [facility] [id number] [place] [address] Jan, [facility] [address] [facility] [id number] [place] [address], [place] [address] Jan, [facility] [address] [facility] [id number] [place] [address] Dec, [facility] [id number] [place] [address] Dec, [facility] [address] [facility] [id number], [place] [address] Dec, [facility] [id number] [address] Nov, [facility] [address] [facility] [id number][place] [address] Nov, [facility] [id number], [place] [address] Sep, [facility] [address] [facility] [id number], [place] [address] Jul, [facility] [address] [facility] [id number], [place] [address] Mar, [facility] [address] [facility] [id number][place] [address] Nov, [facility] [address] [facility] [id number], [place] [address] Nov, IMMUNIZATIONS No Known Immunizations SOCIAL HISTORY Never Assessed REASON FOR VISIT FYI only PLAN OF CARE VITAL SIGNS MEDICATIONS [...] Medical History MRI- Brain 05/29/2017 Medical History [place] Spotted Tick Fever Medical History Ebstein Feng Virus Surgical History hysterectomy, total with unilateral salpingo-oophorectomy ( USO) Surgical History cholecystectomy Surgical History tonsillectomy and adenoidectomy Surgical History hemorrhoidectomy Surgical History EGD Surgical History colonoscopy 08/25/16 Hospitalization History fever, HTN, abnormal head [facility] 05/28/17
--- OUTSIDE RECORDS SUMMARY | 2017-11-06 12:33 | XMS REPORT ---
Author Author MICHAEL CORREIA Organization [facility] Address [address] [place] [address] Care Team Providers Care Dietitian Consultant Name Role Phone MICHAEL CORREIA Unavailable PROBLEMS Type Condition ICD9-CM Code NWY26-[place] Code Onset Dates Condition Status SNOMED Code Problem Major depressive disorder, single episode, unspecified F32.9 Active 94868133 Problem Thyroid nodule E04.1 Active 33353637 Problem Severe single current episode of major depressive disorder, without psychotic features F32.2 Active 76416314 Problem Severe episode of recurrent major depressive disorder, without psychotic features F33.2 Active 081193537391 Problem Chronic tension-type headache, intractable G44.221 Active 778629292 Problem Constipation, chronic K59.09 Active 899963875 Problem Essential hypertension I10 Active 49913592 Problem Non morbid obesity due to excess calories E66.09 Active 176508805 Problem 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 Active 385308910 Problem RMSF (Maize spotted 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 Active 507468307 Problem Abnormal brain MRI R90.89 Active 667563914 Problem Abnormal mammogram of left breast R92.8 Active 164838749 Problem Diarrhea, unspecified type R19.7 Active 21811789 Problem Controlled substance agreement signed Z79.899 Active 897742260 Problem Other chronic pain G89.29 Active 748024671 Problem Scoliosis of thoracolumbar spine, unspecified scoliosis type M41.9 Active 592149260 Problem 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 Active 035609203 Problem Recurrent fever A68.9 Active 240250326 Problem Epigastric abdominal pain R10.13 Active 13314149 Problem Abnormal mammogram R92.8 Active 860677520 Problem Pain in thoracic spine M54.6 Active 786905782247344 Problem Cervicalgia M54.2 Active 6347629783811 Problem Radicular low back pain M54.10 Active 82703718 Problem Muscle spasm M62.838 Active 31658919 Problem Other chronic pain G89.29 Active 590070282 Problem Fibromyalgia M79.7 Active 730804159 Problem Anxiety F41.9 Active 926115077 Problem Acute bilateral low back pain with sciatica, sciatica laterality unspecified M54.40 Active [id number] ALLERGIES No Information ENCOUNTERS Encounter Location Date Diagnosis [facility] [address] [id number] [id number] Sep, [facility] [address] [id number] Sep, Fibromyalgia M79.7 [facility] [id number] [place] [address] [id number] Sep, Epigastric abdominal pain R10.13 and Diarrhea, unspecified type R19.7 [facility] [id number] [place] [address] [id number] Sep, Abnormal mammogram of left breast R92.8 [facility] [id number] [place] [address] [id number] Sep, Abnormal mammogram R92.8 [facility] [id number] [place] [address] [id number] Sep, [facility] [id number] [place] [address] [phone] Aug, Abnormal mammogram R92.8 [facility] [id number], [place] [id number] Aug, [facility] [address] [id number] [place] [address] [phone] Aug, [facility] [id number] [place] [address] [phone] Aug, Screening breast examination Z12.31 and At risk for bone density loss Z91.89 [facility] [address] [id number] [place] [address] [id number] Aug, [facility] [id number], [place] [id number] Aug, [facility] [id number] [place] [address] [id number] Aug, Other chronic pain G89.29 [facility] [place] [address] [id number], [place] [id number] Aug, [facility] [place] [address] [id number], [place] [id number] Aug, [facility] [place] [address] [id number], [place] [id number] Aug, [facility] [place] [address] [id number] [place] [address] [id number] Aug, Fibromyalgia M79.7 ; Anxiety F41.9 ; High risk medication use Z79.899 ; Other chronic pain G89.29 ; Recurrent fever A68.9 ; 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 and RMSF (Maize spotted 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 [facility] [place] [address] [id number], [place] [id number] Jul, [facility] [place] [address] [id number] [place] [address] [id number] Jul, [facility] [address] [id number], [place] [id number] Jul, Muscle spasm M62.838 and Anxiety F41.9 [facility] [address] [id number], [place] [phone] Jul, [facility] [place] [address] [id number], [place] [id number] Jul, [facility] [place] [address] [id number], [place] [id number] Jul, [facility] [address] [id number][place] [phone] Jul, [facility] [place] [address] [id number], [place] [id number] Jul, [facility] [place] [address] [id number], [place] [id number] Jul, [facility] [place] [address] [id number], [place] [phone] Jul, [facility] [place] [address] [id number], [place] [id number] Jul, [facility] [place] [address] [id number], [place] [id number] Jul, [facility] [place] [address] [id number], [place] [id number] Jul, [facility] [place] [address] [id number], [place] [id number] Jul, Radicular low back pain M54.10 ; Other chronic pain G89.29 and Fibromyalgia M79.7 [facility] [place] [address] [id number], [place] [id number] Jul, [facility] [place] [address] [id number] [place] [phone] Jul, [facility] [place] [address] [id number] [place] [phone] Jul, [facility] [place] [address] [id number] [place] [address] [id number] June, [facility] [place] [address] [id number], [place] [id number] June, [facility] [address] [id number], [place] [id number] June, 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 ; Recurrent fever A68.9 ; Other chronic pain G89.29 ; Radicular low back pain M54.10 ; Chronic tension- type headache, intractable G44.221 ; Essential hypertension I10 ; RMSF (Maize spotted 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 and Abnormal brain MRI R90.89 [facility] [place] [address] [id number], [place] [id number] June, [address] [id number], [place] [phone] June, 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 and RMSF (Maize spotted 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 [facility] [address] [id number], [place] [id number] June, [facility] [address] [id number], [place] [id number] June, [facility] [address] [id number] [place] [address] [id number] June, RMSF (Maize spotted 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 and 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 [facility] [place] [id number] [place] [address] [id number] June, [facility] [place] [address] [id number] [place] [address] [id number] June, [facility] [id number] [place] [address] [id number] June, [facility] [id number] [place] [address]21- [phone] June, [facility] [id number] [place] [address] [id number] June, [facility] [id number] [place] [address] 249950- 0059 June, Radicular low back pain M54.10 and Scoliosis of thoracolumbar spine, unspecified scoliosis type M41.9 [facility] [place] [address] [id number], [place] [id number] June, [facility] [id number] [place] [address] [id number] June, [facility] [address] [id number] [place] [address] [id number] June, [facility] [id number] [place] [address] [id number] June, [facility] [id number] [place] [address] [id number] June, RMSF (Maize spotted 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 [facility] [place] [address] [id number], [place] [id number] June, [facility] [place] [address] [id number] [place] [address] [id number] June, Muscle spasm M62.838 [facility] [place] [id number] [place] [address] [id number] June, [facility] [id number] [place] [address] [id number] May, [facility] [place] [address] [id number], [place] [id number] May, [facility] [place] [id number] [place] [address] [id number] May, [facility] [address] [id number][place] [id number] May, RMSF (Maize spotted 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 [facility] [address] [id number], [place] [id number] May, Essential hypertension I10 [facility] [id number] [place] [address] 05251- 7100 May, [facility] [place] [address] [id number] [place] [address] [id number] May, Other chronic pain G89.29 [facility] [place] [address] [id number] [place] [address] [id number] May, [facility] [place] [address] [id number] [place] [address] [id number] May, [facility] [place] [address] [id number] [place] [address] [id number] May, [facility] [place] [id number] [place] [address] [id number] May, [facility] [place] [address] [id number] [place] [address] [id number] May, RMSF (Maize spotted 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 ; Nausea R11.0 ; [...] Major depressive disorder, single episode, unspecified F32.9 [facility] [address] [place] [address] 59920- 0832 May, Maize spotted fever A77.0 [facility] [place] [address] [id number] [place] [id number] May, [facility] [place] [address] [id number] [place] [id number] May, [facility] [address] [id number] [place] [phone] May, [facility] [place] [address] [id number] [place] [phone] May, [facility] [place] [address] [id number] [place] [id number] May, [facility] [place] [address] [id number] [place] [id number] May, [facility] [place] [address] [id number] [place] [id number] May, [facility] [place] [address] [id number] [place] [id number] May, [facility] [place] [address] [id number] [place] [id number] May, [facility] [place] [address] [id number] [place] [id number] May, [facility] [place] [address] [id number] [place] [id number] May, [facility] [place] [address] [id number] [place] [id number] May, [facility] [place] [address] [id number] [place] [id number] May, [facility] [place] [address] [id number] [place] [id number] May, [facility] [place] [address] [id number] [place] [id number] May, [facility] [place] [address] [id number] [place] [id number] May, [facility] [place] [address] [id number] [place] [id number] May, Radicular low back pain M54.10 ; Other chronic pain G89.29 ; Fibromyalgia M79.7 ; Cervicalgia M54.2 ; Pain in thoracic spine M54.6 and Scoliosis of thoracolumbar spine, unspecified scoliosis type M41.9 [facility] [address] [facility] [id number] [place] [id number] May, [place] [address] [facility] [id number], [place] [id number] Apr, Muscle spasm M62.[address] [id number], [place] [id number] Apr, [address] [place] [address] [id number] Apr, Fibromyalgia M79.7 ; Muscle spasm M62.838 ; Other chronic pain G89.29 ; Vision changes H53.9 ; Headache above the eye region R51 ; Major depressive disorder, single episode, unspecified F32.9 ; Neck pain M54.2 and Thyroid nodule E04.[address] [id number], [place] [id number] Apr, Other chronic pain G89.29 [address] [place] [address] [id number] Apr, Chronic tension-type headache, intractable G44.221 [address] [place] [address] [id number] Mar, Other chronic pain G89.29 ; Scoliosis of thoracolumbar spine, unspecified scoliosis type M41.9 ; Muscle spasm M62.838 ; Other chronic pain G89.29 ; Headache above the eye region R51 ; Hospital discharge follow-up Z09 ; Lumbar back pain with radiculopathy affecting right lower extremity M54.17 ; Lumbar back pain with radiculopathy affecting left lower extremity M54.17 and Myalgia M79.1 [facility] [address] [facility] [id number], [place] [id number] Mar, [address]00565[address], [place] [id number] Mar, Other chronic pain G89.[address] [id number], [place] [id number] Mar, Radicular low back pain M54.10 [facility] [id number] [place] [address] [id number] Feb, [place] [id number] [place] [address] [id number] Feb, [place] [id number] [place] [address] [id number] Feb, Muscle spasm M62.838 [place] [id number] [place] [address] [id number] Feb, Itching L29.9 and Acute bilateral back pain, unspecified back location M54.9 [place] [id number] [place] [address] [id number] Feb, History of pneumonia Z87.01 ; Cough R05 ; Radicular low back pain M54.10 ; Scoliosis of thoracolumbar spine, unspecified scoliosis type M41.9 ; Elevated liver enzymes R74.8 ; Influenza J11.1 ; Severe single current episode of major depressive disorder, without psychotic features F32.2 and Stressful life events affecting family and household Z63.79 [place] [id number] [place] [address] [id number] Jan, Muscle spasm M62.838 [place] [id number] [place] [address] [id number] Jan, Post-nasal drainage R09.82 ; Anxiety F41.9 and Cough R05 [place] [id number] [place] [address] [id number] Jan, Severe episode of recurrent major depressive disorder, without psychotic features F33.2 [place] [id number] [place] [address] [id number] Jan, Muscle spasm M62.838 [address] [place] [address] [id number] Jan, Acute recurrent maxillary sinusitis J01.01 and Breast tenderness in female N64.4 [place] [id number] [place] [address] [id number] Nov, [address] [place] [address] [id number] Nov, [place] [id number] [id number] Nov, Radicular low back pain M54.10 and Muscle spasm M62.838 [facility] [id number] [place] [address] [id number] Nov, [place] [id number] [place] [address] [id number] Nov, Viral disease B34.9 ; Fever, unspecified fever cause R50.9 ; Other fatigue R53.83 and Other malaise R53.81 [place] [id number] [place] [address] [id number] Nov, Thyroid nodule E04.1 [place] [id number] [place] [address] [id number] Nov, Severe episode of recurrent major depressive disorder, without psychotic features F33.2 [place] [id number] [place] [address] [id number] Nov, Acute nasopharyngitis J00 [address] [place] [address] [id number] Oct, Scoliosis of thoracolumbar spine, unspecified scoliosis type M41.9 ; Muscle spasm M62.838 ; Thyroid nodule E04.1 ; Pain in thoracic spine M54.6 ; Other chronic pain G89.29 ; Cervicalgia M54.2 ; Radicular low back pain M54.10 ; Severe episode of recurrent major depressive disorder, without psychotic features F33.2 and High risk medication use Z79.899 [facility] [address] [id number], [place] [address]- 0186 Oct, [place] [id number], [place] [id number] Sep, Scoliosis of thoracolumbar spine, unspecified scoliosis type M41.9 ; Muscle spasm M62.838 ; Thyroid nodule E04.1 ; Pain in thoracic spine M54.6 ; Other chronic pain G89.29 ; Cervicalgia M54.2 ; Controlled substance agreement signed Z79.899 ; Vaginal yeast infection B37.3 and Radicular low back pain M54.10 [address] [place] [address] [id number] Sep, Scoliosis of thoracolumbar spine, unspecified scoliosis type M41.9 and Muscle spasm M62.838 [address] [place] [address] [id number] Sep, Severe episode of recurrent major depressive disorder, without psychotic features F33.2 [place] [id number] [place] [address] [id number] Aug, Severe episode of recurrent major depressive disorder, without psychotic features F33.2 ; Thyroid nodule E04.1 ; Constipation, chronic K59.09 and Non morbid obesity due to excess calories E66.09 [place] [id number] [place] [address] [id number] Aug, Non morbid obesity due to excess calories E66.09 and Thyroid nodule E04.1 [place] [id number] [place] [address] [id number] Aug, [place] [id number] [place] [address] [id number] Jul, Severe episode of recurrent major depressive disorder, without psychotic features F33.2 ; Thyroid nodule E04.1 ; Constipation, chronic K59.09 and Non morbid obesity due to excess calories E66.09 [place] [id number] [place] [address] [id number] June, Sore throat J02.9 and Major depressive disorder, single episode, unspecified F32.9 [facility] [id number] [place] [address] [id number] [id number] May, [facility] [id number] [place] [address] 75163- 9629 May, [facility] [address] [id number] Mar, [facility] [id number] [place] [address] [id number] [phone] Mar, [facility] [address] 25[address]- 0346 Mar, [facility] [address] [id number] [place] [address]- 5526 Mar, [facility] [address] [id number] [place]- 0036 Jan, [facility] [address] [id number] [place] [address]- 1556 Jan, [facility] [address] [id number] [place] [address]- 8623 Jan, [facility] [address] [id number] [place] [address]- 6521 Jan, [facility] [address] [id number] [place] [address]- 1846 Jan, [facility] [address] [facility] [id number] [place] [address]- 9423 Jan, [facility] [address] [id number] [place] [address]- 4469 Jan, [facility] [address] [id number] [place] [address]- 9771 Jan, [facility] [address] [facility] [id number] [place] [address]- 2285 Dec, [facility] [address] [id number] [place] [address]- 3316 Dec, [facility] [place] [facility] [address] [id number] [place] [address]- 6677 Apr, [facility] [place] [facility] [address] [id number] [place] [address]- 8309 Jan, [facility] [place] [facility] [address] [id number] [place] [address]- 4810 Jan, [facility] [address] [facility] [id number] [place] [address]- 8753 Dec, [facility] [place] [facility] [address] [id number] [place] [address]- 2628 Dec, [facility] [place] [facility] [address] [id number] [place] [address]- 2147 Nov, [facility] [place] [facility] [address] [id number] [place] [address]- 8580 Nov, [facility] [place] [facility] [address] [id number] [place] [address]- 0480 Sep, [facility] [place] [facility] [address] [id number] [place] [address]- 5271 Sep, [facility] [place] [address] [id number] [place] [id number] Sep, [facility] [place] [address] [facility] [id number] [place] [id number] Sep, [facility] [place] [facility] [address] [id number] [place] [address]- 3930 Sep, [facility] [place] [facility] [address] [id number] [place] [address]- 0045 Sep, [facility] [place] [address] [id number] [place] [id number] Aug, [facility] [place] [facility] [address] [id number] [place] [address] Aug, [facility] [place] [facility] [address] [id number] [place] [address] Aug, [facility] [place] [facility] [address] [id number] [place] [address] Aug, [facility] [address] [id number] [place] [id number] Jul, [facility] [place] [facility] [address] [id number] [place] [address] Jul, [facility] [place] [facility] [address] [id number] [place] [address] Jul, [facility] [place] [facility] [address] [address] Jul, [facility] [address] [address] May, [facility] [address], [place] [address] Feb, [facility] [id number] [address] Jan, [facility] [address], [place] [address] Jan, [facility] [id number] [place] [address] Dec, [facility] [address], [place] [address] Dec, [facility] [id number] [place] [address] Dec, [facility] [address], [place] [address] Nov, [facility] [address] [place] [address] Nov, [facility] [address] [place] [address] Sep, [facility] [address], [place] [address] Jul, [facility] [address], [place] [address] Mar, [facility] [address] [place] [address] Nov, [facility] [address], [place] [address] Nov, IMMUNIZATIONS No Known Immunizations SOCIAL HISTORY Never Assessed REASON FOR VISIT Infectious Disease PLAN OF CARE VITAL SIGNS MEDICATIONS Unknown Medications RESULTS No Results PROCEDURES No Known procedures INSTRUCTIONS MEDICATIONS ADMINISTERED No Known Medications MEDICAL (GENERAL) HISTORY Type Description Date Medical History Fibromyalgia Medical History Chronic Consipation Medical History 08/16/16 [facility] general surgery center, Dr. Jimenez, hemorrhage [...] Medical History MRI- Brain 05/29/2017 Medical History [place] Spotted Tick Fever Medical History Ebstein Feng Virus Surgical History hysterectomy, total with unilateral salpingo-oophorectomy ( USO) Surgical History cholecystectomy Surgical History tonsillectomy and adenoidectomy Surgical History hemorrhoidectomy Surgical History EGD Surgical History colonoscopy 08/25/16 Hospitalization History fever, HTN, abnormal head [facility] 05/28/17
--- OUTSIDE RECORDS SUMMARY | 2017-11-06 12:33 | XMS REPORT ---
Author Author MICHAEL CORREIA Organization [facility] Address [address] [place] [address] Care Team Providers Care Therapeutic Recreation Director Name Role Phone MICHAEL CORREIA Unavailable PROBLEMS Type Condition ICD9-CM Code RNL19-HE Code Onset Dates Condition Status SNOMED Code Problem Major depressive disorder, single episode, unspecified F32.9 Active 59020373 Problem Thyroid nodule E04.1 Active 99705699 Problem Severe single current episode of major depressive disorder, without psychotic features F32.2 Active 99881486 Problem Severe episode of recurrent major depressive disorder, without psychotic features F33.2 Active 073325416093 Problem Chronic tension-type headache, intractable G44.221 Active 303213318 Problem Constipation, chronic K59.09 Active 191622987 Problem Essential hypertension I10 Active 58535563 Problem Non morbid obesity due to excess calories E66.09 Active 904075890 Problem 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 Active 885422159 Problem RMSF (Creswell spotted 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 Active 299597842 Problem Abnormal brain MRI R90.89 Active 941468811 Problem Abnormal mammogram of left breast R92.8 Active 558475758 Problem Diarrhea, unspecified type R19.7 Active 14537827 Problem Controlled substance agreement signed Z79.899 Active 224170212 Problem Other chronic pain G89.29 Active 294220666 Problem Scoliosis of thoracolumbar spine, unspecified scoliosis type M41.9 Active 544050520 Problem 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 Active 423655673 Problem Recurrent fever A68.9 Active 330004984 Problem Epigastric abdominal pain R10.13 Active 41067306 Problem Abnormal mammogram R92.8 Active 157043745 Problem Pain in thoracic spine M54.6 Active [id number] Problem Cervicalgia M54.2 Active 5397748007817 Problem Radicular low back pain M54.10 Active 89123381 Problem Muscle spasm M62.838 Active 43507675 Problem Other chronic pain G89.29 Active 151269933 Problem Fibromyalgia M79.7 Active 484263477 Problem Anxiety F41.9 Active 841395343 Problem Acute bilateral low back pain with sciatica, sciatica laterality unspecified M54.40 Active 448158673 ALLERGIES No Information ENCOUNTERS Encounter Location Date Diagnosis [facility] [address] [id number][place] [id number] Sep, [facility] [id number] [phone] Sep, Fibromyalgia M79.7 [facility] [id number] [place] [address] [id number] Sep, Epigastric abdominal pain R10.13 and Diarrhea, unspecified type R19.7 [facility] [id number] [place] [address] [id number] Sep, Abnormal mammogram of left breast R92.8 [facility] [id number] [place] [address] [phone] Sep, Abnormal mammogram R92.8 [facility] [id number] [place] [address] [id number] Sep, [facility] [id number] [place] [address] [id number] Aug, Abnormal mammogram R92.8 [facility] [id number], [place] [id number] Aug, [facility] [place] [id number] [place] [address] [id number] Aug, [facility] [id number] [place] [address] [phone] Aug, Screening breast examination Z12.31 and At risk for bone density loss Z91.89 [facility] [address] [id number] [place] [address] [id number] Aug, [facility] [id number], [place] [id number] Aug, [facility] [address] [id number] [place] [address] [id number] Aug, Other chronic pain G89.29 [facility] [place] [address] [id number], [place] [phone] Aug, [facility] [place] [address] [id number], [place] [phone] Aug, [facility] [place] [address] [id number], [place] [phone] Aug, [facility] [place] [address] [id number] [place] [address] [phone] Aug, Fibromyalgia M79.7 ; Anxiety F41.9 ; High risk medication use Z79.899 ; Other chronic pain G89.29 ; Recurrent fever A68.9 ; 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 and RMSF (Creswell spotted 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 [facility] [place] [address] [id number], [place] [id number] Jul, [facility] [place] [address] [id number] [place] [address] [id number] Jul, [facility] [place] [address] [id number], [place] [id number] Jul, Muscle spasm M62.838 and Anxiety F41.9 [facility] [place] [address] [id number], [place] [id number] Jul, [facility] [place] [address] [id number], [place] [phone] Jul, [facility] [place] [address] [id number], [place] [id number] Jul, [facility] [address] [id number], [place] [phone] Jul, [facility] [place] [address] [id number], [place] [id number] Jul, [facility] [place] [address] [id number], [place] [id number] Jul, [facility] [place] [address] [id number], [place] [phone] Jul, [facility] [place] [address] [id number], [place] [id number] Jul, [facility] [place] [address] [id number], [place] [phone] Jul, [facility] [place] [address] [id number], [place] [id number] Jul, [facility] [place] [address] [id number], [place] [phone] Jul, Radicular low back pain M54.10 ; Other chronic pain G89.29 and Fibromyalgia M79.7 [facility] [place] [address] [id number], [place] [id number] Jul, [facility] [place] [address] [id number] [place] [id number] Jul, [facility] [place] [address] [id number] [place] [id number] Jul, [facility] [place] [address] [id number] [place] [address] [id number] June, [facility] [place] [address] [id number], [place] [phone] June, [facility] [place] [address] [id number], [place] [phone] June, 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 ; Recurrent fever A68.9 ; Other chronic pain G89.29 ; Radicular low back pain M54.10 ; Chronic tension- type headache, intractable G44.221 ; Essential hypertension I10 ; RMSF (Creswell spotted 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 and Abnormal brain MRI R90.89 [facility] [place] [address] [id number], [place] [phone] June, [address] [id number], [place] [phone] June, 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 and RMSF (Creswell spotted 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 [facility] [place] [address] [id number], [place] [phone] June, [facility] [place] [address] [id number], [place] [phone] June, [facility] [place] [id number] [place] [address] [id number] June, RMSF (Creswell spotted 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 and 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 [facility] [place] [id number] [place] [address] [id number] June, [facility] [place] [address] [id number] [place] [address] [id number] June, [facility] [place] [id number] [place] [address] [id number] June, [facility] [id number] [place] [phone] June, [facility] [place] [id number] [place] [address] [phone] June, [facility] [id number] [place] [address] [phone]- [address] June, Radicular low back pain M54.10 and Scoliosis of thoracolumbar spine, unspecified scoliosis type M41.9 [facility] [place] [address] [id number], [place] [phone] June, [facility] [place] [address] [id number] [place] [address] [id number] June, [facility] [place] [address] [id number] [place] [address] [id number] June, [facility] [place] [id number] [place] [address] [phone] June, [facility] [place] [id number] [place] [address] [phone] June, RMSF (Creswell spotted 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 [facility] [place] [address] [id number], [place] [phone] June, [facility] [place] [id number] [place] [address] [phone] June, Muscle spasm M62.838 [facility] [place] [address] [id number] [place] [address] [phone] June, [facility] [place] [id number] [place] [address] [id number] May, [facility] [place] [address] [id number], [place] [id number] May, [facility] [place] [address] [id number] [place] [address] [id number] May, [facility] [address] [id number][place] [phone] May, RMSF (Creswell spotted 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 [facility] [address] [id number][place] [id number] May, Essential hypertension I10 [facility] [place] [id number] [place] [address]66- 8528 May, [facility] [place] [address] [id number] [place] [address] [phone] May, Other chronic pain G89.29 [facility] [place] [address] [id number] [place] [address] [id number] May, [facility] [place] [address] [id number] [place] [address] [phone] May, [facility] [place] [address] [id number] [place] [address] [id number] May, [facility] [place] [address] [id number] [place] [address] [id number] May, [facility] [place] [address] [id number] [place] [address] [phone] May, RMSF (Creswell spotted 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 ; Nausea R11.0 ; [...] Major depressive disorder, single episode, unspecified F32.9 [facility] [place] [address] [place] [address]- 5621 May, Creswell spotted fever A77.0 [facility] [place] [address] [id number] [place] [phone] May, [facility] [place] [address] [id number] [place] [id number] May, [facility] [address] [id number] [place] 9[place]- [address] May, [facility] [place] [address] [id number] [place] [id number] May, [facility] [place] [address] [id number] [place] [id number] May, [facility] [place] [address] [id number] [place] [phone] May, [facility] [place] [address] [id number] [place] [phone] May, [facility] [place] [address] [id number] [place] [phone] May, [facility] [place] [address] [id number] [place] [id number] May, [facility] [place] [address] [id number] [place] [id number] May, [facility] [place] [address] [id number] [place] [id number] May, [facility] [place] [address] [id number] [place] [id number] May, [facility] [place] [address] [id number] [place] [id number] May, [facility] [place] [address] [id number] [place] [phone] May, [facility] [place] [address] [id number] [place] [id number] May, [facility] [place] [address] [id number] [place] [phone] May, [facility] [place] [address] [id number] [place] [id number] May, Radicular low back pain M54.10 ; Other chronic pain G89.29 ; Fibromyalgia M79.7 ; Cervicalgia M54.2 ; Pain in thoracic spine M54.6 and Scoliosis of thoracolumbar spine, unspecified scoliosis type M41.9 [facility] [address] [facility] [id number] [place] [id number] May, [place] [address] [facility] [id number][place] [id number] Apr, Muscle spasm M62.[address] [id number], [place] [id number] Apr, [address] [place] [address] [id number] Apr, Fibromyalgia M79.7 ; Muscle spasm M62.838 ; Other chronic pain G89.29 ; Vision changes H53.9 ; Headache above the eye region R51 ; Major depressive disorder, single episode, unspecified F32.9 ; Neck pain M54.2 and Thyroid nodule E04.[address] [id number], [place] [id number] Apr, Other chronic pain G89.29 [address] [place] [address] [id number] Apr, Chronic tension-type headache, intractable G44.221 [address] [place] [address] [id number] Mar, Other chronic pain G89.29 ; Scoliosis of thoracolumbar spine, unspecified scoliosis type M41.9 ; Muscle spasm M62.838 ; Other chronic pain G89.29 ; Headache above the eye region R51 ; Hospital discharge follow-up Z09 ; Lumbar back pain with radiculopathy affecting right lower extremity M54.17 ; Lumbar back pain with radiculopathy affecting left lower extremity M54.17 and Myalgia M79.1 [facility] [address] [facility] [id number], [place] [id number] Mar, [address]65100[place], [place] [id number] Mar, Other chronic pain G89.[address] [id number], [place] [id number] Mar, Radicular low back pain M54.10 [facility] [id number] [place] [address] [id number] Feb, [id number] [place] [address] [id number] Feb, [place] [id number] [place] [address] [id number] Feb, Muscle spasm M62.838 [address] [place] [address] [id number] Feb, Itching L29.9 and Acute bilateral back pain, unspecified back location M54.9 [place] [id number] [place] [address] [id number] Feb, History of pneumonia Z87.01 ; Cough R05 ; Radicular low back pain M54.10 ; Scoliosis of thoracolumbar spine, unspecified scoliosis type M41.9 ; Elevated liver enzymes R74.8 ; Influenza J11.1 ; Severe single current episode of major depressive disorder, without psychotic features F32.2 and Stressful life events affecting family and household Z63.79 [id number] [place] [address] [id number] Jan, Muscle spasm M62.838 [address] [place] [address] [id number] Jan, Post-nasal drainage R09.82 ; Anxiety F41.9 and Cough R05 [id number] [place] [address] [id number] Jan, Severe episode of recurrent major depressive disorder, without psychotic features F33.2 [place] [id number] [place] [address] [id number] Jan, Muscle spasm M62.838 [address] [place] [address] [id number] Jan, Acute recurrent maxillary sinusitis J01.01 and Breast tenderness in female N64.4 [id number] [place] [address] [id number] Nov, [address] [place] [address] [id number] Nov, [id number] [id number] Nov, Radicular low back pain M54.10 and Muscle spasm M62.838 [facility] [id number] [place] [address] [id number] Nov, [address] [place] [address] [id number] Nov, Viral disease B34.9 ; Fever, unspecified fever cause R50.9 ; Other fatigue R53.83 and Other malaise R53.81 [place] [id number] [place] [address] [id number] Nov, Thyroid nodule E04.1 [id number] [place] [address] [id number] Nov, Severe episode of recurrent major depressive disorder, without psychotic features F33.2 [address] [place] [address] [id number] Nov, Acute nasopharyngitis J00 [address] [place] [address] [id number] Oct, Scoliosis of thoracolumbar spine, unspecified scoliosis type M41.9 ; Muscle spasm M62.838 ; Thyroid nodule E04.1 ; Pain in thoracic spine M54.6 ; Other chronic pain G89.29 ; Cervicalgia M54.2 ; Radicular low back pain M54.10 ; Severe episode of recurrent major depressive disorder, without psychotic features F33.2 and High risk medication use Z79.899 [facility] [place] [address] [id number] [address]- [address] Oct, [address] [id number], [place] [id number] Sep, Scoliosis of thoracolumbar spine, unspecified scoliosis type M41.9 ; Muscle spasm M62.838 ; Thyroid nodule E04.1 ; Pain in thoracic spine M54.6 ; Other chronic pain G89.29 ; Cervicalgia M54.2 ; Controlled substance agreement signed Z79.899 ; Vaginal yeast infection B37.3 and Radicular low back pain M54.10 [address] [place] [address] [id number] Sep, Scoliosis of thoracolumbar spine, unspecified scoliosis type M41.9 and Muscle spasm M62.838 [address] [place] [address] [id number] Sep, Severe episode of recurrent major depressive disorder, without psychotic features F33.2 [address] [place] [address] [id number] Aug, Severe episode of recurrent major depressive disorder, without psychotic features F33.2 ; Thyroid nodule E04.1 ; Constipation, chronic K59.09 and Non morbid obesity due to excess calories E66.09 [address] [address] [place] [address] [id number] Aug, Non morbid obesity due to excess calories E66.09 and Thyroid nodule E04.1 [address] [place] [address] [id number] Aug, [address] [place] [address] [id number] Jul, Severe episode of recurrent major depressive disorder, without psychotic features F33.2 ; Thyroid nodule E04.1 ; Constipation, chronic K59.09 and Non morbid obesity due to excess calories E66.09 [id number] [place] [address] [phone] June, Sore throat J02.9 and Major depressive disorder, single episode, unspecified F32.9 [facility] [place] [id number] [place] [address] [phone] 2863 May, [facility] [place] [id number] [place] [address] 51768- 3221 May, [facility] [place] [address] [id number] Mar, [facility] [place] [id number] [place] [address] [id number] Mar, [facility] [place] [address] [address]- 6334 Mar, [facility] [address] [id number] [place] [address]- 0[address] Mar, [facility] [address] [id number] [place]- [address] Jan, [facility] [address] [id number] [place] [address]- 3956 Jan, [facility] [address] [id number] [place] [address]- 8538 Jan, [facility] [address] [id number] [place] [address]- 5667 Jan, [facility] [address] [id number] [place] [address]- 4200 Jan, [facility] [address] [facility] [id number] [place] [address]- 8632 Jan, [facility] [address] [id number] [place] [address]- 5635 Jan, [facility] [address] [id number] [place] [address]- 5633 Jan, [facility] [address] [facility] [id number] [place] [address]- 4051 Dec, [facility] [address] [id number] [place] [address]- 9399 Dec, [facility] [place] [facility] [address] [id number] [place] [address]- 5559 Apr, [facility] [place] [facility] [address] [id number] [place] [address]- 7194 Jan, [facility] [place] [facility] [address] [id number] [place] [address]- 5964 Jan, [facility] [address] [facility] [id number] [place] [address]- 1491 Dec, [facility] [place] [facility] [address] [id number] [place] [address]- 7499 Dec, [facility] [place] [facility] [address] [id number] [place] [address]- 5930 Nov, [facility] [place] [facility] [address] [id number] [place] [address]- 8398 Nov, [facility] [place] [facility] [address] [id number] [place] [address] Sep, [facility] [place] [facility] [address] [id number] [place] [address] Sep, [facility] [address] [id number] [place] [id number] Sep, [facility] [address] [facility] [id number] [place] [id number] Sep, [facility] [place] [facility] [address] [id number] [place] [address] Sep, [facility] [place] [facility] [address] [id number] [place] [address] Sep, [facility] [address] [id number] [place] [id number] Aug, [facility] [place] [facility] [address] [id number] [place] [address] Aug, [facility] [place] [facility] [address] [id number] [place] [address] Aug, [facility] [place] [facility] [address] [id number] [place] [address] Aug, [facility] [address] [id number] [place] [id number] Jul, [facility] [place] [facility] [address] [id number] [place] [address] Jul, [facility] [place] [facility] [address] [id number] [place] [address] Jul, [facility] [place] [facility] [address] [address] Jul, [facility] [place] [address] [address] May, [facility] [place] [address] [address] Feb, [facility], [place] [address] [address] Jan, [facility], [place] [address] [address] Jan, [facility], [place] [id number] [place] [address] Dec, [facility], [place] [address], [place] [address] Dec, [facility], [place] [id number] [place] [address] Dec, [facility], [place] [address] [address] Nov, [facility], [place] [address] [address] Nov, [facility], [place] [address] [place] [address] Sep, [facility] [place] [address] [address] Jul, [facility] [place] [address] [place] [address] Mar, [facility] [place] [address] [place] [address] Nov, [facility], [place] [address] [address] Nov, IMMUNIZATIONS No Known Immunizations SOCIAL HISTORY Never Assessed REASON FOR VISIT Re: RE:Dr Collado PLAN OF CARE VITAL SIGNS MEDICATIONS Unknown Medications RESULTS No Results PROCEDURES No Known procedures INSTRUCTIONS MEDICATIONS ADMINISTERED No Known Medications MEDICAL (GENERAL) HISTORY Type Description Date Medical History Fibromyalgia Medical History Chronic Consipation Medical History 08/16/16 [facility] general surgery center, Dr. Jimenez, hemorrhage [...] Medical History MRI- Brain 05/29/2017 Medical History [place] Spotted Tick Fever Medical History Ebstein Feng Virus Surgical History hysterectomy, total with unilateral salpingo-oophorectomy ( USO) Surgical History cholecystectomy Surgical History tonsillectomy and adenoidectomy Surgical History hemorrhoidectomy Surgical History EGD Surgical History colonoscopy 08/25/16 Hospitalization History fever, HTN, abnormal head [facility] 05/28/17
--- OUTSIDE RECORDS SUMMARY | 2017-11-06 12:34 | XMS REPORT ---
Author Author MICHAEL CORREIA Organization [facility] Address [address] [place] [address] Care Team Providers Care [employer] Porter Name Role Phone MICHAEL CORREIA Unavailable PROBLEMS Type Condition ICD9-CM Code DKN47-XN Code Onset Dates Condition Status SNOMED Code Problem Major depressive disorder, single episode, unspecified F32.9 Active 60776874 Problem Thyroid nodule E04.1 Active 93008651 Problem Severe single current episode of major depressive disorder, without psychotic features F32.2 Active 75114275 Problem Severe episode of recurrent major depressive disorder, without psychotic features F33.2 Active 292740823662 Problem Chronic tension-type headache, intractable G44.221 Active 694393405 Problem Constipation, chronic K59.09 Active 206090092 Problem Essential hypertension I10 Active 68692289 Problem Non morbid obesity due to excess calories E66.09 Active 852724021 Problem 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 Active 461826408 Problem RMSF (Orchards spotted 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 Active 151706667 Problem Abnormal brain MRI R90.89 Active 708382140 Problem Abnormal mammogram of left breast R92.8 Active 030056314 Problem Diarrhea, unspecified type R19.7 Active 36982919 Problem Controlled substance agreement signed Z79.899 Active 702691089 Problem Other chronic pain G89.29 Active 154538876 Problem Scoliosis of thoracolumbar spine, unspecified scoliosis type M41.9 Active 790191569 Problem 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 Active 742279683 Problem Recurrent fever A68.9 Active 095753551 Problem Epigastric abdominal pain R10.13 Active 53315361 Problem Abnormal mammogram R92.8 Active 598036903 Problem Pain in thoracic spine M54.6 Active 208082744113103 Problem Cervicalgia M54.2 Active 5523075235228 Problem Radicular low back pain M54.10 Active 29978348 Problem Muscle spasm M62.838 Active 74997689 Problem Other chronic pain G89.29 Active 727371259 Problem Fibromyalgia M79.7 Active 292233286 Problem Anxiety F41.9 Active 624915873 Problem Acute bilateral low back pain with sciatica, sciatica laterality unspecified M54.40 Active 640418217 ALLERGIES No Information ENCOUNTERS Encounter Location Date Diagnosis [facility] [place] [address] [facility] [facility] [id number][place] [id number] Sep, [facility] [address] [id number] Sep, Fibromyalgia M79.7 [facility] [address] [facility] [facility] [id number] [place] [address] [id number] Sep, Epigastric abdominal pain R10.13 and Diarrhea, unspecified type R19.7 [facility] [id number] [place] [address] [id number] Sep, Abnormal mammogram of left breast R92.8 [facility] [id number] [place] [address] [phone] Sep, Abnormal mammogram R92.8 [facility] [id number] [place] [address] [id number] Sep, [facility] [id number] [place] [address] [id number] Aug, Abnormal mammogram R92.8 [facility] [id number] [place] [id number] Aug, [facility] [place] [id number] [place] [address] [id number] Aug, [facility] [id number] [place] [address] [id number] Aug, Screening breast examination Z12.31 and At risk for bone density loss Z91.89 [facility] [id number] [place] [address] [id number] Aug, [facility] [id number] [place] [id number] Aug, [facility] [address] [id number] [place] [address] [id number] Aug, Other chronic pain G89.29 [facility] [place] [address] [id number] [place] [id number] Aug, [facility] [place] [address] [id number] [place] [id number] Aug, [facility] [place] [address] [id number] [place] [id number] Aug, [facility] [place] [address] [id number] [place] [address] [id number] Aug, Fibromyalgia M79.7 ; Anxiety F41.9 ; High risk medication use Z79.899 ; Other chronic pain G89.29 ; Recurrent fever A68.9 ; 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 and RMSF (Orchards spotted 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 [facility] [place] [address] [id number] [place] [id number] Jul, [facility] [place] [address] [id number] [place] [address] [id number] Jul, [facility] [place] [address] [id number] [place] [phone] Jul, Muscle spasm M62.838 and Anxiety F41.9 [facility] [place] [address] [id number] [place] [id number] Jul, [facility] [place] [address] [id number] [place] [id number] Jul, [facility] [place] [address] [id number] [place] [id number] Jul, [facility] [address] [id number], [place] [id number] Jul, [facility] [place] [address] [id number] [place] [id number] Jul, [facility] [place] [address] [id number] [place] [id number] Jul, [facility] [place] [address] [id number] [place] [id number] Jul, [facility] [place] [address] [id number] [place] [id number] Jul, [facility] [place] [address] [id number] [place] [id number] Jul, [facility] [place] [address] [id number] [place] [id number] Jul, [facility] [place] [address] [id number] [place] [id number] Jul, Radicular low back pain M54.10 ; Other chronic pain G89.29 and Fibromyalgia M79.7 [facility] [place] [address] [id number] [place] [id number] Jul, [facility] [place] [address] [id number] [place] [id number] Jul, [facility] [place] [address] [id number] [place] [id number] Jul, [facility] [place] [address] [id number] [place] [address] [id number] June, [facility] [place] [address] [id number] [place] [id number] June, [facility] [place] [address] [id number] [place] [id number] June, 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 ; Recurrent fever A68.9 ; Other chronic pain G89.29 ; Radicular low back pain M54.10 ; Chronic tension- type headache, intractable G44.221 ; Essential hypertension I10 ; RMSF (Orchards spotted 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 and Abnormal brain MRI R90.89 [facility] [place] [address] [id number] [place] [phone] June, [address] [id number], [place] [id number] June, 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 and RMSF (Orchards spotted 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 [facility] [place] [address] [id number] [place] [id number] June, [facility] [place] [address] [id number] [place] [id number] June, [facility] [place] [id number] [place] [address] [id number] June, RMSF (Orchards spotted 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 and 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 [facility] [place] [id number] [place] [address] [id number] June, [facility] [place] [address] [id number] [place] [address] [id number] June, [facility] [place] [id number] [place] [address] [id number] June, [facility] [id number] [place] [address] June, [facility] [place] [id number] [place] [address] [id number] June, [facility] [id number] [place] [address] [id number]- 2[address] June, Radicular low back pain M54.10 and Scoliosis of thoracolumbar spine, unspecified scoliosis type M41.9 [facility] [place] [address] [id number] [place] [id number] June, [facility] [place] [address] [id number] [place] [address] [id number] June, [facility] [place] [address] [id number] [place] [address] [id number] June, [facility] [place] [id number] [place] [address] [id number] June, [facility] [place] [id number] [place] [address] [id number] June, RMSF (Orchards spotted 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 [facility] [place] [address] [id number] [place] [id number] June, [facility] [place] [address] [id number] [place] [address] [id number] June, Muscle spasm M62.838 [facility] [place] [address] [id number] [place] [address] [id number] June, [facility] [place] [id number] [place] [address] [id number] May, [facility] [place] [address] [id number] [place] [id number] May, [facility] [place] [address] [id number] [place] [address] [id number] May, [facility] [address] [id number], [place] [id number] May, RMSF (Orchards spotted 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 [facility] [id number][place] [id number] May, Essential hypertension I10 [facility] [id number] [place] [address] 86[address]- 9811 May, [facility] [place] [address] [id number] [place] [address] [id number] May, Other chronic pain G89.29 [facility] [place] [address] [id number] [place] [address] [id number] May, [facility] [place] [address] [id number] [place] [address] [id number] May, [facility] [place] [address] [id number] [place] [address] [id number] May, [facility] [place] [address] [id number] [place] [address] [id number] May, [facility] [place] [address] [id number] [place] [address] [id number] May, RMSF (Orchards spotted 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 ; Nausea R11.0 ; [...] Major depressive disorder, single episode, unspecified F32.9 [facility] [address] [place] [address] 66617- 8631 May, Orchards spotted fever A77.0 [facility] [place] [address] [id number] [place] [id number] May, [facility] [place] [address] [id number] [place] [id number] May, [facility] [address] [id number] [place] [id number] May, [facility] [place] [address] [id number] [place] [id number] May, [facility] [place] [address] [id number] [place] [id number] May, [facility] [place] [address] [id number] [place] [id number] May, [facility] [place] [address] [id number] [place] [id number] May, [facility] [place] [address] [id number] [place] [id number] May, [facility] [place] [address] [id number] [place] [id number] May, [facility] [place] [address] [id number] [place] [id number] May, [facility] [place] [address] [id number] [place] [id number] May, [facility] [place] [address] [id number] [place] [id number] May, [facility] [place] [address] [id number] [place] [id number] May, [facility] [place] [address] [id number] [place] [id number] May, [facility] [place] [address] [id number] [place] [id number] May, [facility] [place] [address] [id number] [place] [id number] May, [facility] [place] [address] [id number] [place] [id number] May, Radicular low back pain M54.10 ; Other chronic pain G89.29 ; Fibromyalgia M79.7 ; Cervicalgia M54.2 ; Pain in thoracic spine M54.6 and Scoliosis of thoracolumbar spine, unspecified scoliosis type M41.9 [facility] [address] [facility] [id number] [place] [id number] May, [place] [address] [address] [facility] [id number] [place] [id number] Apr, Muscle spasm M62.[address] [id number] [place], [place] [id number] Apr, [address] [place] [address] [id number] Apr, Fibromyalgia M79.7 ; Muscle spasm M62.838 ; Other chronic pain G89.29 ; Vision changes H53.9 ; Headache above the eye region R51 ; Major depressive disorder, single episode, unspecified F32.9 ; Neck pain M54.2 and Thyroid nodule E04.[address] [id number] [place], [place] [id number] Apr, Other chronic pain G89.29 [address] [place] [address] [id number] Apr, Chronic tension-type headache, intractable G44.221 [address] [place] [address] [id number] Mar, Other chronic pain G89.29 ; Scoliosis of thoracolumbar spine, unspecified scoliosis type M41.9 ; Muscle spasm M62.838 ; Other chronic pain G89.29 ; Headache above the eye region R51 ; Hospital discharge follow-up Z09 ; Lumbar back pain with radiculopathy affecting right lower extremity M54.17 ; Lumbar back pain with radiculopathy affecting left lower extremity M54.17 and Myalgia M79.1 [facility] [address] [facility] [id number] [place], [place] [id number] Mar, [address]00565100[place] [id number] Mar, Other chronic pain G89.[address] [id number] [place], [place] [id number] Mar, Radicular low back pain M54.10 [facility] [id number] [place] [address] [id number] Feb, [place] [id number] [place] [address] [id number] Feb, [place] [id number] [place] [address] [id number] Feb, Muscle spasm M62.838 [place] [id number] [place] [address] [id number] Feb, Itching L29.9 and Acute bilateral back pain, unspecified back location M54.9 [place] [id number] [place] [address] [id number] Feb, History of pneumonia Z87.01 ; Cough R05 ; Radicular low back pain M54.10 ; Scoliosis of thoracolumbar spine, unspecified scoliosis type M41.9 ; Elevated liver enzymes R74.8 ; Influenza J11.1 ; Severe single current episode of major depressive disorder, without psychotic features F32.2 and Stressful life events affecting family and household Z63.79 [place] [id number] [place] [address] [id number] Jan, Muscle spasm M62.838 [place] [id number] [place] [address] [id number] Jan, Post-nasal drainage R09.82 ; Anxiety F41.9 and Cough R05 [place] [id number] [place] [address] [id number] Jan, Severe episode of recurrent major depressive disorder, without psychotic features F33.2 [place] [id number] [place] [address] [id number] Jan, Muscle spasm M62.838 [address] [place] [address] [id number] Jan, Acute recurrent maxillary sinusitis J01.01 and Breast tenderness in female N64.4 [place] [id number] [place] [address] [id number] Nov, [address] [place] [address] [id number] Nov, [place] [id number] [id number] Nov, Radicular low back pain M54.10 and Muscle spasm M62.838 [facility] [id number] [place] [address] [id number] Nov, [place] [id number] [place] [address] [id number] Nov, Viral disease B34.9 ; Fever, unspecified fever cause R50.9 ; Other fatigue R53.83 and Other malaise R53.81 [place] [id number] [place] [address] [id number] Nov, Thyroid nodule E04.1 [place] [id number] [place] [address] [id number] Nov, Severe episode of recurrent major depressive disorder, without psychotic features F33.2 [place] [id number] [place] [address] [id number] Nov, Acute nasopharyngitis J00 [address] [place] [address] [id number] Oct, Scoliosis of thoracolumbar spine, unspecified scoliosis type M41.9 ; Muscle spasm M62.838 ; Thyroid nodule E04.1 ; Pain in thoracic spine M54.6 ; Other chronic pain G89.29 ; Cervicalgia M54.2 ; Radicular low back pain M54.10 ; Severe episode of recurrent major depressive disorder, without psychotic features F33.2 and High risk medication use Z79.899 [facility] [address] [id number], [place] [address] Oct, [place] [id number] [id number] Sep, Scoliosis of thoracolumbar spine, unspecified scoliosis type M41.9 ; Muscle spasm M62.838 ; Thyroid nodule E04.1 ; Pain in thoracic spine M54.6 ; Other chronic pain G89.29 ; Cervicalgia M54.2 ; Controlled substance agreement signed Z79.899 ; Vaginal yeast infection B37.3 and Radicular low back pain M54.10 [address] [place] [address] [id number] Sep, Scoliosis of thoracolumbar spine, unspecified scoliosis type M41.9 and Muscle spasm M62.838 [address] [place] [address] [id number] Sep, Severe episode of recurrent major depressive disorder, without psychotic features F33.2 [place] [id number] [place] [address] [id number] Aug, Severe episode of recurrent major depressive disorder, without psychotic features F33.2 ; Thyroid nodule E04.1 ; Constipation, chronic K59.09 and Non morbid obesity due to excess calories E66.09 [place] [id number] [place] [address] [id number] Aug, Non morbid obesity due to excess calories E66.09 and Thyroid nodule E04.1 [place] [id number] [place] [address] [id number] Aug, [place] [id number] [place] [address] [id number] Jul, Severe episode of recurrent major depressive disorder, without psychotic features F33.2 ; Thyroid nodule E04.1 ; Constipation, chronic K59.09 and Non morbid obesity due to excess calories E66.09 [place] [id number] [place] [address] [id number] June, Sore throat J02.9 and Major depressive disorder, single episode, unspecified F32.9 [facility] [id number] [place] [address] [id number] May, [facility] [id number] [place] [address] 36075- 3032 May, [facility] [address] [id number] Mar, [facility] [id number] [place] [address] [id number] Mar, [facility] [address] [address]- 9811 Mar, [facility] [address] [id number] [place] [address]- 3686 Mar, [facility] [address] [id number] [place]- [address] Jan, [facility] [address] [id number] [place] [address]- 3276 Jan, [facility] [address] [id number] [place] [address]- 3947 Jan, [facility] [address] [id number] [place] [address]- 6787 Jan, [facility] [address] [id number] [place] [address]- 0099 Jan, [facility] [address] [facility] [id number] [place] [address]- 4667 Jan, [facility] [address] [id number] [place] [address]- 7784 Jan, [facility] [address] [id number] [place] [address]- 8170 Jan, [facility] [address] [facility] [id number] [place] [address]- 4573 Dec, [facility] [address] [id number] [place] [address]- 1991 Dec, [facility] [place] [facility] [address] [id number] [place] [address]- 9216 Apr, [facility] [place] [facility] [address] [id number] [place] [address]- 4875 Jan, [facility] [place] [facility] [address] [id number] [place] [address] Jan, [facility] [address] [facility] [id number] [place] [address] Dec, [facility] [place] [facility] [address] [id number] [place] [address] Dec, [facility] [place] [facility] [address] [id number] [place] [address] Nov, [facility] [place] [facility] [address] [id number] [place] [address] Nov, [facility] [place] [facility] [address] [id number] [place] [address] Sep, [facility] [place] [facility] [address] [id number] [place] [address] Sep, [facility] [address] [id number] [place] [id number] Sep, [facility] [address] [facility] [id number] [place] [id number] Sep, [facility] [place] [facility] [address] [id number] [place] [address] Sep, [facility] [place] [facility] [address] [id number] [place] [address] Sep, [facility] [address] [id number] [place] [id number] Aug, [facility] [place] [facility] [address] [id number] [place] [address] Aug, [facility] [place] [facility] [address] [id number] [place] [address] Aug, [facility] [place] [facility] [address] [id number] [place] [address] Aug, [facility] [address] [id number] [place] [id number] Jul, [facility] [place] [facility] [address] [id number] [place] [address] Jul, [facility] [place] [facility] [address] [id number] [place] [address] Jul, [facility] [place] [facility] [id number] [place] [address] Jul, [facility] [id number] [place] [address] May, [facility] [id number], [place] [address] Feb, [facility] [id number], [place] [address] Jan, [facility] [id number], [place] [address] Jan, [facility] [id number] [place] [address] Dec, [facility] [id number], [place] [address] Dec, [facility] [id number] [place] [address] Dec, [facility] [id number], [place] [address] Nov, [facility] [address] [id number], [place] [address] Nov, [facility] [place] [id number] [place] [address] Sep, [facility] [place] [id number] [place] [address] Jul, [facility] [place] [id number] [place] [address] Mar, [facility] [place] [id number] [place] [address] Nov, [facility] [place] [id number], [place] [address] Nov, IMMUNIZATIONS No Known Immunizations SOCIAL HISTORY Never Assessed REASON FOR VISIT Dr Collado PLAN OF CARE VITAL SIGNS MEDICATIONS Unknown Medications RESULTS No Results PROCEDURES No Known procedures INSTRUCTIONS MEDICATIONS ADMINISTERED No Known Medications MEDICAL (GENERAL) HISTORY Type Description Date Medical History Fibromyalgia Medical History Chronic Consipation Medical History 08/16/16 [facility] general surgery center, Dr. Jimenez, hemorrhage [...] Medical History MRI- Brain 05/29/2017 Medical History [place] Spotted Tick Fever Medical History Ebstein Feng Virus Surgical History hysterectomy, total with unilateral salpingo-oophorectomy ( USO) Surgical History cholecystectomy Surgical History tonsillectomy and adenoidectomy Surgical History hemorrhoidectomy Surgical History EGD Surgical History colonoscopy 08/25/16 Hospitalization History fever, HTN, abnormal head [facility] 05/28/17
--- OUTSIDE RECORDS SUMMARY | 2017-11-06 12:34 | XMS REPORT ---
Author Author MICHAEL CORREIA Organization [facility] Address [address] [place] [address] Care Team Providers Care Moisture Tester Name Role Phone MICHAEL CORREIA Unavailable PROBLEMS Type Condition ICD9-CM Code KIT43-YF Code Onset Dates Condition Status SNOMED Code Problem Major depressive disorder, single episode, unspecified F32.9 Active 31697530 Problem Thyroid nodule E04.1 Active 32763012 Problem Severe single current episode of major depressive disorder, without psychotic features F32.2 Active 86933317 Problem Severe episode of recurrent major depressive disorder, without psychotic features F33.2 Active 356803976667 Problem Chronic tension-type headache, intractable G44.221 Active 938879135 Problem Constipation, chronic K59.09 Active 407738391 Problem Essential hypertension I10 Active 25075173 Problem Non morbid obesity due to excess calories E66.09 Active 767426198 Problem 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 Active 308110435 Problem RMSF ([place] spotted 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 Active 772951948 Problem Abnormal brain MRI R90.89 Active 943465678 Problem Abnormal mammogram of left breast R92.8 Active 481918796 Problem Diarrhea, unspecified type R19.7 Active 55010568 Problem Controlled substance agreement signed Z79.899 Active 108093232 Problem Other chronic pain G89.29 Active 661313933 Problem Scoliosis of thoracolumbar spine, unspecified scoliosis type M41.9 Active 280567768 Problem 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 Active 624130728 Problem Recurrent fever A68.9 Active 402440780 Problem Epigastric abdominal pain R10.13 Active 54726122 Problem Abnormal mammogram R92.8 Active 517153089 Problem Pain in thoracic spine M54.6 Active 852538620629342 Problem Cervicalgia M54.2 Active 1667379896004 Problem Radicular low back pain M54.10 Active 34547231 Problem Muscle spasm M62.838 Active 08177441 Problem Other chronic pain G89.29 Active 038064383 Problem Fibromyalgia M79.7 Active 892348133 Problem Anxiety F41.9 Active 440338573 Problem Acute bilateral low back pain with sciatica, sciatica laterality unspecified M54.40 Active [id number] ALLERGIES No Information ENCOUNTERS Encounter Location Date Diagnosis [facility] [address] [id number] [place] [id number] Sep, [facility] [address], [place] [phone] Sep, Fibromyalgia M79.7 [facility] [id number] [place] [address] [id number] Sep, Epigastric abdominal pain R10.13 and Diarrhea, unspecified type R19.7 [facility] [id number] [place] [address] [id number] Sep, Abnormal mammogram of left breast R92.8 [facility] [id number] [place] [address] [phone] Sep, Abnormal mammogram R92.8 [facility] [id number] [place] [address] [id number] Sep, [facility] [id number] [place] [address] [id number] Aug, Abnormal mammogram R92.8 [facility] [id number][place] [id number] Aug, [facility] [place] [address] [id number] [place] [address] [id number] Aug, [facility] [id number] [place] [address] [id number] Aug, Screening breast examination Z12.31 and At risk for bone density loss Z91.89 [facility] [address] [id number] [place] [address] [id number] Aug, [facility] [id number], [place] [phone] Aug, [facility] [address] [id number] [place] [address] [id number] Aug, Other chronic pain G89.29 [facility] [place] [address] [id number] [id number] Aug, [facility] [place] [address] [id number][place] [id number] Aug, [facility] [place] [address] [id number][place] [id number] Aug, [facility] [place] [address] [id number] [place] [address] [id number] Aug, Fibromyalgia M79.7 ; Anxiety F41.9 ; High risk medication use Z79.899 ; Other chronic pain G89.29 ; Recurrent fever A68.9 ; 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 and RMSF ([place] spotted 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 [facility] [place] [address] [id number], [place] [id number] Jul, [facility] [place] [address] [id number] [place] [address] [id number] Jul, [facility] [place] [address] [id number][place] [id number] Jul, Muscle spasm M62.838 and Anxiety F41.9 [facility] [place] [address] [id number][place] [phone] Jul, [facility] [place] [address] [id number], [place] [phone] Jul, [facility] [place] [address] [id number], [place] [phone] Jul, [facility] [address] [id number] [place] [phone] Jul, [facility] [place] [address] [id number], [place] [id number] Jul, [facility] [place] [address] [id number] [id number] Jul, [facility] [place] [address] [id number], [place] [id number] Jul, [facility] [place] [address] [id number], [place] [id number] Jul, [facility] [place] [address] [id number], [place] [id number] Jul, [facility] [place] [address] [id number], [place] [phone] Jul, [facility] [place] [address] [id number], [place] [id number] Jul, Radicular low back pain M54.10 ; Other chronic pain G89.29 and Fibromyalgia M79.7 [facility] [place] [address] [id number], [place] [id number] Jul, [facility] [place] [address] [id number] [place] [id number] Jul, [facility] [place] [address] [id number] [place] [phone] Jul, [facility] [place] [address] [id number] [place] [address] [id number] June, [facility] [place] [address] [id number], [place] [phone] June, [facility] [place] [address] [id number], [place] [phone] June, 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 ; Recurrent fever A68.9 ; Other chronic pain G89.29 ; Radicular low back pain M54.10 ; Chronic tension- type headache, intractable G44.221 ; Essential hypertension I10 ; RMSF ([place] spotted 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 and Abnormal brain MRI R90.89 [facility] [place] [address] [id number], [place] [phone] June, [address] [id number] [place] [phone] June, 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 and RMSF ([place] spotted 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 [facility] [place] [address] [id number], [place] [id number] June, [facility] [place] [address] [id number], [place] [id number] June, [facility] [place] [id number] [place] [address] [id number] June, RMSF ([place] spotted 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 and 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 [facility] [place] [id number] [place] [address] [id number] June, [facility] [place] [address] [id number] [place] [address] [phone] June, [facility] [place] [id number] [place] [address] [phone] June, [facility] [id number] [place] [address]- 9774 June, [facility] [place] [id number] [place] [address] [id number] June, [facility] [id number] [place] [address] 101027- 7111 June, Radicular low back pain M54.10 and Scoliosis of thoracolumbar spine, unspecified scoliosis type M41.9 [facility] [place] [address] [id number], [place] [phone] June, [facility] [place] [address] [id number] [place] [address] [phone] June, [facility] [place] [address] [id number] [place] [address] [id number] June, [facility] [place] [id number] [place] [address] [id number] June, [facility] [place] [id number] [place] [address] [phone] June, RMSF ([place] spotted 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 [facility] [place] [address] [id number], [place] [phone] June, [facility] [place] [address] [id number] [place] [address] [id number] June, Muscle spasm M62.838 [facility] [place] [address] [id number] [place] [address] [id number] June, [facility] [place] [id number] [place] [address] [phone] May, [facility] [place] [address] [id number], [place] [phone] May, [facility] [place] [address] [id number] [place] [address] [id number] May, [facility] [address] [id number] [place] [phone] May, RMSF ([place] spotted 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 [facility] [place] [address] [id number] [place] [phone] May, Essential hypertension I10 [facility] [id number] [place] [address] 85778- 9140 May, [facility] [place] [address] [id number] [place] [address] [phone] May, Other chronic pain G89.29 [facility] [place] [address] [id number] [place] [address] [id number] May, [facility] [place] [address] [id number] [place] [address] [id number] May, [facility] [place] [address] [id number] [place] [address] [id number] May, [facility] [place] [address] [id number] [place] [address] [phone] May, [facility] [place] [address] [id number] [place] [address] [id number] May, RMSF ([place] spotted 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 ; Nausea R11.0 ; [...] Major depressive disorder, single episode, unspecified F32.9 [facility] [address] [place] [address] 40881- 9602 May, [place] spotted fever A77.0 [facility] [place] [address] [id number] [place] [phone] May, [facility] [place] [address] [id number] [place] [phone] May, [facility] [address] [id number] [place] [id number]- [address] May, [facility] [place] [address] [id number] [place] [id number] May, [facility] [place] [address] [id number] [place] [id number] May, [facility] [place] [address] [id number] [place] [phone] May, [facility] [place] [address] [id number] [place] [phone] May, [facility] [place] [address] [id number] [place] [phone] May, [facility] [place] [address] [id number] [place] [phone] May, [facility] [place] [address] [id number] [place] [id number] May, [facility] [place] [address] [id number] [place] [phone] May, [facility] [place] [address] [id number] [place] [phone] May, [facility] [place] [address] [id number] [place] [id number] May, [facility] [place] [address] [id number] [place] [id number] May, [facility] [place] [address] [id number] [place] [id number] May, [facility] [place] [address] [id number] [place] [id number] May, [facility] [place] [address] [id number] [place] [id number] May, Radicular low back pain M54.10 ; Other chronic pain G89.29 ; Fibromyalgia M79.7 ; Cervicalgia M54.2 ; Pain in thoracic spine M54.6 and Scoliosis of thoracolumbar spine, unspecified scoliosis type M41.9 [facility] [address] [facility] [id number] [place] [id number] May, [place] [address] [facility] [id number], [place] [id number] Apr, Muscle spasm M62.[address] [id number], [place] [phone] Apr, [address] [place] [address] [id number] Apr, Fibromyalgia M79.7 ; Muscle spasm M62.838 ; Other chronic pain G89.29 ; Vision changes H53.9 ; Headache above the eye region R51 ; Major depressive disorder, single episode, unspecified F32.9 ; Neck pain M54.2 and Thyroid nodule E04.[address] [id number], [place] [id number] Apr, Other chronic pain G89.29 [address] [place] [address] [id number] Apr, Chronic tension-type headache, intractable G44.221 [address] [place] [address] [id number] Mar, Other chronic pain G89.29 ; Scoliosis of thoracolumbar spine, unspecified scoliosis type M41.9 ; Muscle spasm M62.838 ; Other chronic pain G89.29 ; Headache above the eye region R51 ; Hospital discharge follow-up Z09 ; Lumbar back pain with radiculopathy affecting right lower extremity M54.17 ; Lumbar back pain with radiculopathy affecting left lower extremity M54.17 and Myalgia M79.1 [facility] [address] [facility] [id number], [place] [id number] Mar, [address]65[address], [place] [id number] Mar, Other chronic pain G89.[address] [id number], [place] [id number] Mar, Radicular low back pain M54.10 [facility] [id number] [place] [address] [id number] Feb, [place] [id number] [place] [address] [id number] Feb, [address] [id number] [place] [address] [id number] Feb, Muscle spasm M62.838 [address] [id number] [place] [address] [id number] Feb, Itching L29.9 and Acute bilateral back pain, unspecified back location M54.9 [place] [id number] [place] [address] [id number] Feb, History of pneumonia Z87.01 ; Cough R05 ; Radicular low back pain M54.10 ; Scoliosis of thoracolumbar spine, unspecified scoliosis type M41.9 ; Elevated liver enzymes R74.8 ; Influenza J11.1 ; Severe single current episode of major depressive disorder, without psychotic features F32.2 and Stressful life events affecting family and household Z63.79 [place] [id number] [place] [address] [id number] Jan, Muscle spasm M62.838 [address] [id number] [place] [address] [id number] Jan, Post-nasal drainage R09.82 ; Anxiety F41.9 and Cough R05 [place] [id number] [place] [address] [id number] Jan, Severe episode of recurrent major depressive disorder, without psychotic features F33.2 [place] [id number] [place] [address] [id number] Jan, Muscle spasm M62.838 [address] [place] [address] [id number] Jan, Acute recurrent maxillary sinusitis J01.01 and Breast tenderness in female N64.4 [place] [id number] [place] [address] [id number] Nov, [address] [place] [address] [id number] Nov, [address] [id number] [id number] Nov, Radicular low back pain M54.10 and Muscle spasm M62.838 [facility] [id number] [place] [address] [id number] Nov, [place] [id number] [place] [address] [id number] Nov, Viral disease B34.9 ; Fever, unspecified fever cause R50.9 ; Other fatigue R53.83 and Other malaise R53.81 [address] [id number] [place] [address] [id number] Nov, Thyroid nodule E04.1 [place] [id number] [place] [address] [id number] Nov, Severe episode of recurrent major depressive disorder, without psychotic features F33.2 [place] [id number] [place] [address] [id number] Nov, Acute nasopharyngitis J00 [address] [place] [address] [id number] Oct, Scoliosis of thoracolumbar spine, unspecified scoliosis type M41.9 ; Muscle spasm M62.838 ; Thyroid nodule E04.1 ; Pain in thoracic spine M54.6 ; Other chronic pain G89.29 ; Cervicalgia M54.2 ; Radicular low back pain M54.10 ; Severe episode of recurrent major depressive disorder, without psychotic features F33.2 and High risk medication use Z79.899 [facility] [address] [id number], [place] [address]- [address] Oct, [place] [address] [id number] [id number] Sep, Scoliosis of thoracolumbar spine, unspecified scoliosis type M41.9 ; Muscle spasm M62.838 ; Thyroid nodule E04.1 ; Pain in thoracic spine M54.6 ; Other chronic pain G89.29 ; Cervicalgia M54.2 ; Controlled substance agreement signed Z79.899 ; Vaginal yeast infection B37.3 and Radicular low back pain M54.10 [address] [place] [address] [id number] Sep, Scoliosis of thoracolumbar spine, unspecified scoliosis type M41.9 and Muscle spasm M62.838 [address] [place] [address] [id number] Sep, Severe episode of recurrent major depressive disorder, without psychotic features F33.2 [place] [id number] [place] [address] [id number] Aug, Severe episode of recurrent major depressive disorder, without psychotic features F33.2 ; Thyroid nodule E04.1 ; Constipation, chronic K59.09 and Non morbid obesity due to excess calories E66.09 [place] [id number] [place] [address] [id number] Aug, Non morbid obesity due to excess calories E66.09 and Thyroid nodule E04.1 [place] [id number] [place] [address] [id number] Aug, [place] [id number] [place] [address] [id number] Jul, Severe episode of recurrent major depressive disorder, without psychotic features F33.2 ; Thyroid nodule E04.1 ; Constipation, chronic K59.09 and Non morbid obesity due to excess calories E66.09 [place] [id number] [place] [address] [id number] June, Sore throat J02.9 and Major depressive disorder, single episode, unspecified F32.9 [facility] [id number] [place] [address] [id number] [phone] May, [facility] [id number] [place] [address] 35525- 0316 May, [facility] [address] [id number] [id number] Mar, [facility] [id number] [place] [address] [id number]- [id number] Mar, [facility] [address] 33[address]- 7556 Mar, [facility] [address] [id number] [place] [address]- 7846 Mar, [facility] [address] [id number] [place]- 6986 Jan, [facility] [address] [id number] [place] [address]- 7056 Jan, [facility] [address] [id number] [place] [address]- 6923 Jan, [facility] [address] [id number] [place] [address]- 2881 Jan, [facility] [address] [id number] [place] [address]- 3431 Jan, [facility] [address] [facility] [id number] [place] [address]- 1123 Jan, [facility] [address] [id number] [place] [address]- 7375 Jan, [facility] [address] [id number] [place] [address]- 8841 Jan, [facility] [address] [facility] [id number] [place] [address]- 5502 Dec, [facility] [address] [id number] [place] [address]- 9867 Dec, [facility] [place] [facility] [address] [id number] [place] [address]- 6982 Apr, [facility] [place] [facility] [address] [id number] [place] [address]- 4035 Jan, [facility] [place] [facility] [address] [id number] [place] [address]- 7293 Jan, [facility] [address] [facility] [id number] [place] [address]- 3742 Dec, [facility] [place] [facility] [address] [id number] [place] [address]- 4966 Dec, [facility] [place] [facility] [address] [id number] [place] [address]- 2679 Nov, [facility] [place] [facility] [address] [id number] [place] [address]- 7961 Nov, [facility] [place] [facility] [address] [id number] [place] [address]- 6912 Sep, [facility] [place] [facility] [address] [id number] [place] [address]- 4583 Sep, [facility] [place] [address] [id number] [place] [id number] Sep, [facility] [place] [address] [facility] [id number] [place] [id number] Sep, [facility] [place] [facility] [address] [id number] [place] [address]- 1868 Sep, [facility] [place] [facility] [address] [id number] [place] [address]- 9022 Sep, [facility] [place] [address] [id number] [place] [id number] Aug, [facility] [place] [facility] [address] [id number] [place] [address]- 4115 Aug, [facility] [place] [facility] [address] [id number] [place] [address]- 5829 Aug, [facility] [place] [facility] [address] [id number] [place] [address]- 5289 Aug, [facility] [place] [address] [id number] [place] [id number] Jul, [facility] [place] [facility] [address] [id number] [place] [address] Jul, [facility] [place] [facility] [address] [id number] [place] [address] Jul, [facility] [place] [facility] [id number] [place] [address] Jul, [facility] [id number] [place] [address] May, [facility] [id number] [place] [address] Feb, [facility] [id number] [place] [address] Jan, [facility] [id number] [place] [address] Jan, [facility] [id number] [place] [address] Dec, [facility] [id number] [place] [address] Dec, [facility] [id number] [place] [address] Dec, [facility] [id number], [place] [address] Nov, [facility] [id number] [place] [address] Nov, [facility] [id number] [place] [address] Sep, [facility] [id number] [place] [address] Jul, [facility] [id number] [place] [address] Mar, [facility] [id number] [place] [address] Nov, [facility] [id number], [place] [address] Nov, IMMUNIZATIONS No Known Immunizations SOCIAL HISTORY Never Assessed REASON FOR VISIT Dr Collado PLAN OF CARE VITAL SIGNS MEDICATIONS Unknown Medications RESULTS No Results PROCEDURES No Known procedures INSTRUCTIONS MEDICATIONS ADMINISTERED No Known Medications MEDICAL (GENERAL) HISTORY Type Description Date Medical History Fibromyalgia Medical History Chronic Consipation Medical History 08/16/16 [facility] general surgery center, Dr. Jimenez, hemorrhage [...] Medical History MRI- Brain 05/29/2017 Medical History [place] Spotted Tick Fever Medical History Ebstein Feng Virus Surgical History hysterectomy, total with unilateral salpingo-oophorectomy ( USO) Surgical History cholecystectomy Surgical History tonsillectomy and adenoidectomy Surgical History hemorrhoidectomy Surgical History EGD Surgical History colonoscopy 08/25/16 Hospitalization History fever, HTN, abnormal head [facility] 05/28/17
[2017-11-06] MEDS ORDERED: VANCOMYCIN ORAL SUSPENSION 60 ML BOTTLE PO SCH (12:45)
[2017-11-06] MEDS ORDERED: PHARMACY TO DOSE PO SCH (13:00)
--- OUTSIDE RECORDS SUMMARY | 2017-11-06 13:14 | XMS REPORT | Continuity of Care Document ---
Author Author [facility] Address Unknown Phone Unavailable Allergies Active Description Code Type Severity Reaction Onset Reported/Identified Relationship to Patient Clinical Status Yes No Known Drug Allergies [id number] Drug Allergy Unknown N/A 08/25/2016 Medications There [...] K 599.0 Urinary Tract Infection 01/07/2008 NICOLE MKCEE BETH K 599.0 Urinary Tract Infection 01/07/2008 [...] DUE TO STRESS 04/03/2008 616.10 Vaginitis 04/03/2008 EPLON GARCIABALA Ruby 616.10 Vaginitis 04/03/2008 616.10 Vaginitis [...] PAIN 08/09/2011 401.9 ESSENTIAL HYPERTENSION 08/09/2011 EATON LADLE POURERBALA L 311 DEPRESSION 08/09/2011 EATON LADLE POURER, BALA L 338.29 CHRONIC PAIN 08/09/2011 EATON LADLE POURER, BALA L 401.9 ESSENTIAL HYPERTENSION 08/09/2011 311 [...] Hemorrhoids Nos 09/02/2011 578.1 Hematochezia 09/02/2011 V72.31 Regional Sales Consultant Exam, Routine 09/02/2011 BALA BIRD APRN L 455.6 Hemorrhoids Nos 09/02/2011 EATLINDSAY LADLE POURERBALA Ruby L 578.1 Hematochezia 09/02/2011 EATLINDSAY LADLE POURERBALA Ruby L V72.31 Regional Sales Consultant Exam, Routine 09/02/2011 455.6 Hemorrhoids Nos 09/02/2011 578.1 Hematochezia 09/02/2011 V72.31 Regional Sales Consultant Exam, Routine 09/02/2011 RIVERA DO, BETH K 455.6 Hemorrhoids Nos 09/02/2011 RIVERA DO, BETH K 578.1 Hematochezia 09/02/2011 RIVERA DO, BETH K V72.31 Regional Sales Consultant Exam, Routine 09/02/2011 RIVERA DO, BETH K 455.6 Hemorrhoids Nos 09/02/2011 RIVERA DO, BETH K 578.1 Hematochezia 09/02/2011 RIVERA DO, BETH K V72.31 Regional Sales Consultant Exam, Routine 09/02/2011 RIVERA DO, BETH K 455.6 Hemorrhoids Nos 09/02/2011 RIVERA DO, BETH K 578.1 Hematochezia 09/02/2011 RIVERA DO, BETH K V72.31 Regional Sales Consultant Exam, Routine 10/13/2011 NODX NO DIAGNOSIS 10/13/2011 [...] 786.05 SHORTNESS OF BREATH 08/10/2013 MACIEJ BLEVINS LADLE POURER Ot 311 DEPRESSIVE DISORDER NEC 08/10/2013 MACIEJ BLEVINS LADLE POURER Ot 780.79 OTH MALAISE FATIGUE 08/06/2016 OWEN [...] ACOSTA DO Ot R19.7 DIARRHEA, UNSPECIFIED 10/19/2016 DEGRAFFENREID-ODMINGUEZ, MIHCAEL L Ot E04.1 NONTOXIC SINGLE THYROID NODULE 10/19/2016 DEGRAFFENREID-DOMINGUEZ, MICHALE L Ot M41.26 OTHER IDIOPATHIC SCOLIOSIS, LUMBAR REGIO 02/08/2017 DEGRAFFENREID-DOMINGUEZ, MICHAEL L Ot E04.1 NONTOXIC SINGLE THYROID NODULE 02/16/2017 CORBY AYAH MCKEE K Ot F32.9 MAJOR DEPRESSIVE DISORDER, SINGLE EPISOD 02/16/2017 CORBY , AYAH K Ot F41.9 ANXIETY DISORDER, UNSPECIFIED 02/16/2017 CORBY , AYAH K Ot J01.90 ACUTE SINUSITIS, UNSPECIFIED 02/16/2017 CORBY DO, AYAH K Ot J40 BRONCHITIS, NOT SPECIFIED ACUTE OR CH 02/16/2017 CORBY DODAPHNEYA K Ot R05 COUGH 02/16/2017 CORBY DO, AYAH K Ot R93.5 ABN FINDINGS ON DX IMAGING OF ABD REGION 02/16/2017 CORBY DAPHNEY MCKEEA K Ot R94.5 ABNORMAL RESULTS OF LIVER FUNCTION STUDI 02/16/2017 CORBY AAYH K Ot Z87.19 PERSONAL HISTORY OF OTHER DISEASES OF 02/16/2017 CORBY AYAH K Ot Z90.710 ACQUIRED ABSENCE OF BOTH CERVIX AND UTER 02/16/2017 CORBY AYAH K Ot Z90.89 ACQUIRED ABSENCE OF OTHER ORGANS 02/18/2017 CORBY AYAH MCKEE K Ot F32.9 MAJOR DEPRESSIVE DISORDER, SINGLE EPISOD 02/18/2017 CORBY AYAH MCKEE Ot F41.9 ANXIETY DISORDER, UNSPECIFIED 02/18/2017 CORBY , AYAH K Ot J01.90 ACUTE SINUSITIS, UNSPECIFIED 02/18/2017 CORBY DO, AYAH K Ot J40 BRONCHITIS, NOT SPECIFIED ACUTE OR CH 02/18/2017 CORBY AYAH K Ot R05 COUGH 02/18/2017 CORBY DAPHNEY MCKEEA K Ot R93.5 ABN FINDINGS ON DX IMAGING OF ABD REGION 02/18/2017 CORBY AYAH K Ot R94.5 ABNORMAL RESULTS OF LIVER FUNCTION STUDI 02/18/2017 CORBY AYAH K Ot Z87.19 PERSONAL HISTORY OF OTHER DISEASES OF 02/18/2017 CORBY AYAH K Ot Z90.710 ACQUIRED ABSENCE OF BOTH CERVIX AND UTER 02/18/2017 CORBY DO AYAH K Ot Z90.89 ACQUIRED ABSENCE OF OTHER ORGANS 05/28/2017 DEGRAFFENREID-DOMINGUEZ, MICHAEL L Ot E04.1 NONTOXIC SINGLE THYROID NODULE 05/28/2017 DEGRAFFENREIElisha-MICHAEL DOMINGUEZ Ot M41.26 OTHER IDIOPATHIC SCOLIOSIS, LUMBAR REGIO 05/28/2017 EUGENEFFETOMASA-MICHAEL DOMINGUEZ Ot E04.1 NONTOXIC SINGLE THYROID NODULE 05/29/2017 RIVERA DO BETH K Ot I10 ESSENTIAL (PRIMARY) HYPERTENSION 05/29/2017 RIVERA DO, BETH K Ot 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 05/29/2017 RIVERA DO BETH K Ot R50.9 FEVER, UNSPECIFIED 05/29/2017 RIVERA DO, BETH K Ot R93.0 ABNORMAL FINDINGS ON DX IMAGING OF SKULL 07/13/2017 MICHAEL CARY Ot Z86.19 PERSONAL HISTORY OF OTHER INFECTIOUS AND 07/24/2017 MICHAEL CARY Ot Z86.19 PERSONAL HISTORY OF OTHER INFECTIOUS AND 09/15/2017 MICHAEL CARY Ot M85.88 OTH DISRD OF BONE DENSITY AND STRUCTURE, 09/15/2017 MICHAEL CARY Ot Z12.31 ENCNTR SCREEN MAMMOGRAM FOR MALIGNANT NE 09/15/2017 MICHAEL CARY Ot Z13.820 ENCOUNTER FOR SCREENING FOR OSTEOPOROSIS 10/13/2017 JOE PINTO MD Ot F32.9 MAJOR DEPRESSIVE DISORDER, SINGLE EPISOD 10/13/2017 JOE PINTO MD, Ot F41.9 ANXIETY DISORDER, UNSPECIFIED 10/13/2017 JOE PINTO MD Ot I10 ESSENTIAL (PRIMARY) HYPERTENSION 10/13/2017 JOE PINTO MD Ot R10.13 EPIGASTRIC PAIN 10/13/2017 JOE PINTO MD, Ot Z79.4 PRISON (CURRENT) USE OF INSULIN 10/13/2017 JOE PINTO MD, Ot Z82.49 FAMILY HX OF ISCHEM HEART DIS AND OTH DI 10/13/2017 JOE PINTO MD, Ot Z87.19 PERSONAL HISTORY OF OTHER DISEASES OF TH 10/13/2017 JOE PINTO MD, Ot Z90.710 ACQUIRED ABSENCE OF BOTH CERVIX AND UTER 10/13/2017 JOE PINTO MD Ot Z90.89 ACQUIRED ABSENCE OF OTHER ORGANS 10/17/2017 JOE PINTO MD Ot F32.9 MAJOR DEPRESSIVE DISORDER, SINGLE EPISOD 10/17/2017 JOE PINTO MD, Ot F41.9 ANXIETY DISORDER, UNSPECIFIED 10/17/2017 JOE PINTO MD Ot I10 ESSENTIAL (PRIMARY) HYPERTENSION 10/17/2017 JOE PINTO MD Ot R10.13 EPIGASTRIC PAIN 10/17/2017 JOE PINTO MD Ot 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 10/17/2017 JOE PINTO MD, Ot Z82.49 FAMILY HX OF ISCHEM HEART DIS AND OTH DI 10/17/2017 JOE PINTO MD, Ot Z87.19 PERSONAL HISTORY OF OTHER DISEASES OF TH 10/17/2017 JOE PINTO MD, Ot Z90.710 ACQUIRED ABSENCE OF BOTH CERVIX AND UTER 10/17/2017 JOE PINTO MD Ot Z90.89 ACQUIRED ABSENCE OF OTHER ORGANS 10/18/2017 MELANIE ACOSTA DO B Ot Z01.818 ENCOUNTER FOR OTHER PREPROCEDURAL EXAMIN 10/18/2017 MELANIE ACOSTA DO Ot F32.9 MAJOR DEPRESSIVE DISORDER, SINGLE EPISOD 10/18/2017 MELANIE ACOSTA DO B Ot F41.9 ANXIETY DISORDER, UNSPECIFIED 10/18/2017 IZABEL ACOSTA DOIC B Ot I10 ESSENTIAL (PRIMARY) HYPERTENSION 10/18/2017 MELANIE ACOSTA DO B Ot K21.9 GASTRO-ESOPHAGEAL REFLUX DISEASE WITHOUT 10/18/2017 IZABEL ACOSTA DOIC B Ot K29.50 UNSPECIFIED CHRONIC GASTRITIS WITHOUT BL 10/18/2017 MELANIE ACOSTA DO B Ot K44.9 DIAPHRAGMATIC HERNIA WITHOUT OBSTRUCTION 10/20/2017 MELANIE ACOSTA DO B Ot F32.9 MAJOR DEPRESSIVE DISORDER, SINGLE EPISOD 10/20/2017 MELANIE ACOSTA DO B Ot F41.9 ANXIETY DISORDER, UNSPECIFIED 10/20/2017 IZABEL ACOSTA DOIC B Ot I10 ESSENTIAL (PRIMARY) HYPERTENSION 10/20/2017 IZABEL ACOSTA DOIC B Ot K21.9 GASTRO-ESOPHAGEAL REFLUX DISEASE WITHOUT 10/20/2017 DELALEJANDRINA DO, MELANIE B Ot K29.50 UNSPECIFIED CHRONIC GASTRITIS WITHOUT BL 10/20/2017 DAVE DO, MELANIE B Ot K44.9 DIAPHRAGMATIC HERNIA WITHOUT OBSTRUCTION 10/25/2017 DELALEJANDRINA DO, MELANIE B Ot F32.9 MAJOR DEPRESSIVE DISORDER, SINGLE EPISOD 10/25/2017 DELALEJANDRINA DO, MELANIE B Ot F41.9 ANXIETY DISORDER, UNSPECIFIED 10/25/2017 DELALEJANDRINA DO, MELANIE B Ot I10 ESSENTIAL (PRIMARY) HYPERTENSION 10/25/2017 DAVE DO, MELANIE B Ot K21.9 GASTRO-ESOPHAGEAL REFLUX DISEASE WITHOUT 10/25/2017 DELALEJANDRINA DO, MELANIE B Ot K29.50 UNSPECIFIED CHRONIC GASTRITIS WITHOUT BL 10/25/2017 DAVE DO, MELANIE B Ot K44.9 DIAPHRAGMATIC HERNIA WITHOUT OBSTRUCTION 10/31/2017 DAVE DO, MELANIE B Ot F32.9 MAJOR DEPRESSIVE DISORDER, SINGLE EPISOD 10/31/2017 DELALEJANDRINA DO, MELANIE B Ot F41.9 ANXIETY DISORDER, UNSPECIFIED 10/31/2017 DELALEJANDRINA DO, MELANIE B Ot I10 ESSENTIAL (PRIMARY) HYPERTENSION 10/31/2017 DAVE DO, MELANIE B Ot K21.9 GASTRO-ESOPHAGEAL REFLUX DISEASE WITHOUT 10/31/2017 DELALEJANDRINA DO, MELANIE B Ot K29.50 UNSPECIFIED CHRONIC GASTRITIS WITHOUT BL 10/31/2017 DAVE DO, MELANIE B Ot K44.9 DIAPHRAGMATIC HERNIA WITHOUT OBSTRUCTION 11/01/2017 DAVE MCKEE, MELANIE B Ot R19.8 OTH SYMPTOMS AND SIGNS INVOLVING THE DGS Procedures Code Description Performed By Performed On BLOOD PRESSURE CHECK 10/13/2011 BLOOD PRESSURE CHECK 01/18/2012 50625 STREP A (IN-HOUSE) 02/09/2012 25419 NO CHARGE 12/21/2012 75781 THERAPUTIC INJ SQ/IM 02/08/2013 J3420 B12 VITAMIN INJECTION 02/08/2013 87989 ROUTINE VENIPUNCTURE 02/08/2013 61339 CMP 02/08/2013 23131 VITAMIN D 25-HYDROXY (D2,D3 , TOTAL) 02/08/2013 58179 VIT B 12 02/08/2013 49063 CBC 02/08/2013 THYANA THYROID ANALYZER 02/08/2013 Results [...] urinalysis with reflex to culture NO NRG Complete blood count (CBC) with automated white blood cell (WBC) differential - 02/16/17 11:40 Blood leukocytes automated count (number/volume) 4.1 10*3/uL 4.3-11.0 Blood erythrocytes automated count (number/volume) 4.21 10*6/uL 4.35-5.85 Venous blood hemoglobin measurement (mass/volume) 12.8 g/dL 11.5-16.0 Blood hematocrit (volume fraction) 38 % 35-52 Automated erythrocyte mean corpuscular volume 91 [foz_us] 80-99 Automated erythrocyte mean corpuscular hemoglobin (mass per erythrocyte) 30 pg 25-34 Automated erythrocyte mean corpuscular hemoglobin concentration measurement ( mass/volume) 33 g/dL 32-36 Automated erythrocyte distribution width ratio 12.6 % 10.0-14.5 Automated blood platelet count (count/volume) 174 10*3/uL 130-400 Automated blood platelet mean volume measurement 10.7 [foz_us] 7.4-10.4 Automated blood neutrophils/100 leukocytes 56 % 42-75 Automated blood lymphocytes/100 leukocytes 30 % 12-44 Blood monocytes/100 leukocytes 10 % 0-12 Automated blood eosinophils/100 leukocytes 2 % 0-10 Automated blood basophils/100 leukocytes 1 % 0-10 Blood neutrophils automated count (number/volume) 2.3 10*3 1.8-7.8 Blood lymphocytes automated count (number/volume) 1.2 10*3 1.0-4.0 Blood monocytes automated count (number/volume) 0.4 10*3 0.0-1.0 Automated eosinophil count 0.1 10*3/uL 0.0-0.3 Automated blood basophil count (count/volume) 0.0 10*3/uL 0.0-0.1 Comprehensive metabolic panel - 02/16/17 11:40 Serum or plasma sodium measurement (moles/volume) 141 mmol/L 135-145 Serum or plasma potassium measurement (moles/volume) 4.2 mmol/L 3.6-5.0 Serum or plasma chloride measurement (moles/volume) 106 mmol/L 98-107 Carbon dioxide 29 mmol/L 21-32 Serum or plasma anion gap determination (moles/volume) 6 mmol/L 5-14 Serum or plasma urea nitrogen measurement (mass/volume) 8 mg/dL 7-18 Serum or plasma creatinine measurement (mass/volume) 0.61 mg/dL 0.60-1.30 Serum or plasma urea nitrogen/creatinine mass ratio 13 NRG Serum or plasma creatinine measurement with calculation of estimated glomerular filtration rate > NRG Serum or plasma glucose measurement (mass/volume) 90 mg/dL 70-105 Serum or plasma calcium measurement (mass/volume) 8.4 mg/dL 8.5-10.1 Serum or plasma total bilirubin measurement (mass/volume) 0.3 mg/dL 0.1-1.0 Serum or plasma alkaline phosphatase measurement (enzymatic activity/volume) 83 U/L 40-136 Serum or plasma aspartate aminotransferase measurement (enzymatic activity/ volume) 131 U/L 5-34 Serum or plasma alanine aminotransferase measurement (enzymatic activity/volume ) 215 U/L 0-55 Serum or plasma protein measurement (mass/volume) 6.6 g/dL 6.4-8.2 Serum or plasma albumin measurement (mass/volume) 3.9 g/dL 3.2-4.5 Erythrocyte sedimentation rate by westergren method - 02/16/17 11:40 Erythrocyte sedimentation rate by westergren method 8 mm 0-20 Acute hepatitis panel - 02/16/17 11:40 Confirmatory quantitative serum or plasma hepatitis B virus surface antigen measurement Non-Reactive Non-Reactive Hepatitis A virus IgM antibody assay Non-Reactive Non- Reactive Hepatitis B virus core IgM antibody assay Non-Reactive Non-Reactive Serum hepatitis C virus antibody detection Non-Reactive Non-Reactive MYCOPLASMA, IgM - 03/03/17 14:44 MYCOPLASMA PNEUMONIAE ANTIBODY (IGM) 192 U/mL NR LEN ANALYZER - 05/16/17 15:02 LEN SCREEN, IFA NEGATIVE NEGATIVE DIFFERENTIAL, MANUAL - 05/16/17 15:02 ABSOLUTE NEUTROPHILS 4366 cells/uL 0525-0831 ABSOLUTE MONOCYTES 252 cells/uL 200-950 ABSOLUTE EOSINOPHILS 61 cells/uL 15-500 ABSOLUTE BASOPHILS 0 cells/uL 0-200 NEUTROPHILS 64.2 % NRG LYMPHOCYTES 31.2 % NRG MONOCYTES 3.7 % NRG EOSINOPHILS 0.9 % NRG BASOPHILS 0 % NRG ABSOLUTE LYMPHOCYTES 2122 cells/uL 850-3900 PLATELET ESTIMATION ADEQUATE ADEQUATE Streptococcus pyogenes antigen detection - 05/28/17 16:44 Streptococcus pyogenes antigen detection NEGATIVE NEGATIVE Influenza virus A and B antigen detection - 05/28/17 16:44 FLU RESULT NEGATIVE FOR INFLUENZA A AND B ANTIGENS BY IA [facility] Bacterial throat culture - 05/28/17 16:44 Bacterial throat culture NBS NRG Complete urinalysis with reflex to culture - 05/28/17 17:15 Urine color determination YELLOW NRG Urine clarity determination CLEAR NRG Urine pH measurement by test strip 7 5-9 Specific gravity of urine by test [...] count by microscopy (number/high power field ) [HPF] NRG Bacteria detection in urine sediment by light microscopy TRACE NRG Squamous epithelial cells detection in urine sediment by light microscopy 0-2 NRG Crystals detection in urine sediment by light microscopy NONE NRG Casts detection in urine sediment by light microscopy NONE NRG Mucus detection in urine sediment by light microscopy NEGATIVE NRG Complete urinalysis with reflex to culture NO NRG Renal epithelial cells detection in urine sediment by light microscopy NONE NRG Complete blood count (CBC) with automated white blood cell (WBC) differential - 05/28/17 17:17 Blood leukocytes automated count (number/volume) 8.7 10*3/uL 4.3-11.0 Blood erythrocytes automated count (number/volume) 4.68 10*6/uL 4.35-5.85 Venous blood hemoglobin measurement (mass/volume) 14.5 g/dL 11.5-16.0 Blood hematocrit (volume fraction) 41 % 35-52 Automated erythrocyte mean corpuscular volume 87 [foz_us] 80-99 Automated erythrocyte mean corpuscular hemoglobin (mass per erythrocyte) 31 pg 25-34 Automated erythrocyte mean corpuscular hemoglobin concentration measurement ( mass/volume) 36 g/dL 32-36 Automated erythrocyte distribution width ratio 12.2 % 10.0-14.5 Automated blood platelet count (count/volume) 198 10*3/uL 130-400 Automated blood platelet mean volume measurement 11.4 [foz_us] 7.4-10.4 Automated blood neutrophils/100 leukocytes 65 % 42-75 Automated blood lymphocytes/100 leukocytes 24 % 12-44 Blood monocytes/100 leukocytes 9 % 0-12 Automated blood eosinophils/100 leukocytes 1 % 0-10 Automated blood basophils/100 leukocytes 1 % 0-10 Blood neutrophils automated count (number/volume) 5.7 10*3 1.8-7.8 Blood lymphocytes automated count (number/volume) 2.1 10*3 1.0-4.0 Blood monocytes automated count (number/volume) 0.8 10*3 0.0-1.0 Automated eosinophil count 0.1 10*3/uL 0.0-0.3 Automated blood basophil count (count/volume) 0.1 10*3/uL 0.0-0.1 Blood lactic acid measurement (moles/volume) - 05/28/17 17:17 Blood lactic acid measurement (moles/volume) 0.66 mmol/L 0.50-2.00 Serum heterophile antibody titer - 05/28/17 17:17 Serum heterophile antibody titer NEGATIVE NEGATIVE Comprehensive metabolic panel - 05/28/17 17:17 Serum or plasma sodium measurement (moles/volume) 138 mmol/L 135-145 Serum or plasma potassium measurement (moles/volume) 3.9 mmol/L 3.6-5.0 Serum or plasma chloride measurement (moles/volume) 106 mmol/L 98-107 Carbon dioxide 24 mmol/L 21-32 Serum or plasma anion gap determination (moles/volume) 8 mmol/L 5-14 Serum or plasma urea nitrogen measurement (mass/volume) 10 mg/dL 7-18 Serum or plasma creatinine measurement (mass/volume) 0.65 mg/dL 0.60-1.30 Serum or plasma urea nitrogen/creatinine mass ratio 15 NRG Serum or plasma creatinine measurement with calculation of estimated glomerular filtration rate > NRG Serum or plasma glucose measurement (mass/volume) 87 mg/dL 70-105 Serum or plasma calcium measurement (mass/volume) 9.1 mg/dL 8.5-10.1 Serum or plasma total bilirubin measurement (mass/volume) 0.5 mg/dL 0.1-1.0 Serum or plasma alkaline phosphatase measurement (enzymatic activity/volume) 53 U/L 40-136 Serum or plasma aspartate aminotransferase measurement (enzymatic activity/ volume) 22 U/L 5-34 Serum or plasma alanine aminotransferase measurement (enzymatic activity/volume ) 20 U/L 0-55 Serum or plasma protein measurement (mass/volume) 7.6 g/dL 6.4-8.2 Serum or plasma albumin measurement (mass/volume) 4.8 g/dL 3.2-4.5 Erythrocyte sedimentation rate by westergren method - 05/28/17 17:17 Erythrocyte sedimentation rate by westergren method 1 mm 0-20 Serum or plasma C reactive protein measurement (mass/volume) - 05/28/17 17:17 Serum or plasma C reactive protein measurement (mass/volume) 0.03 mg /dL 0.00-0.50 Bacterial blood culture - 05/28/17 17:17 Bacterial blood culture NG NRG Bacterial blood culture - 05/28/17 18:05 Bacterial blood culture NG NRG Tick identification panel - 05/28/17 18:05 Serum Ehrlichia chaffeensis IgG antibody detection <1:16 <1:16 Serum Ehrlichia chaffeensis IgM antibody detection <1:10 <1:10 Serum Rickettsia rickettsii IgG antibody assay (units/volume) <1:16 [place] spotted fever panel < <1:10 Francisella tularensis antibody assay <1:20 NRG LYME AB G M 0.10 % 0.00-0.89 Interpretation of Lyme disease antibody assay Negative Negative Bartonella antibody assay - 05/28/17 18:05 Serum Bartonella henselae IgM antibody detection <1:10 < 1:10 Serum Bartonella henselae IgG antibody assay (units/volume) < <1:16 Serum Bartonella jean IgG antibody detection <1:16 < 1:16 Serum Bartonella jaen IgM antibody assay (units/volume) < <1:10 Cerebrospinal fluid cell count - 05/28/17 21:35 Cerebrospinal fluid appearance description CLEAR NRG Cerebrospinal fluid color identification COLORLESS NRG Cerebrospinal fluid leukocytes count (number/volume) 0 % 0-5 Cerebrospinal fluid erythrocytes count (number/volume) 1 % 0-0 Manual cerebrospinal fluid lymphocytes/100 leukocytes TNP NRG Manual cerebrospinal fluid mononuclear cells/100 leukocytes TNP NRG Manual cerebrospinal fluid polymorphonuclear cells/100 leukocytes TNP NRG Cerebrospinal fluid cell count on specimen from last tube collected 4 NRG Cerebrospinal fluid glucose measurement (mass/volume) - 05/28/17 21:35 Cerebrospinal fluid glucose measurement (mass/volume) 47 mg/dL 50-80 Cerebrospinal fluid protein measurement (mass/volume) - 05/28/17 21:35 Cerebrospinal fluid protein measurement (mass/volume) 26 mg/dL 15-40 Gram stain microscopy - 05/28/17 21:35 GRAM STAIN RESULT NO WBC'S OR BACTERIA OBSERVED NRG Bacterial cerebrospinal fluid culture - 05/28/17 21:35 Bacterial cerebrospinal fluid culture NG NRG Cerebrospinal fluid Cryptococcus antigen detection - 05/28/17 21:35 Cerebrospinal fluid Cryptococcus antigen detection Negative Negative Cerebrospinal fluid lactate dehydrogenase measurement (enzymatic activity/ volume) by lactate to pyruvate reaction - 05/28/17 21:35 Amniotic fluid lactate dehydrogenase (LDH) measurement < [iU]/L 0-30 Complete blood count (CBC) with automated white blood cell (WBC) differential - 05/29/17 05:39 Blood leukocytes automated count (number/volume) 6.1 10*3/uL 4.3-11.0 Blood erythrocytes automated count (number/volume) 3.94 10*6/uL 4.35-5.85 Venous blood hemoglobin measurement (mass/volume) 12.1 g/dL 11.5-16.0 Blood hematocrit (volume fraction) 35 % 35-52 Automated erythrocyte mean corpuscular volume 90 [foz_us] 80-99 Automated erythrocyte mean corpuscular hemoglobin (mass per erythrocyte) 31 pg 25-34 Automated erythrocyte mean corpuscular hemoglobin concentration measurement ( mass/volume) 34 g/dL 32-36 Automated erythrocyte distribution width ratio 12.2 % 10.0-14.5 Automated blood platelet count (count/volume) 162 10*3/uL 130-400 Automated blood platelet mean volume measurement 11.4 [foz_us] 7.4-10.4 Automated blood neutrophils/100 leukocytes 54 % 42-75 Automated blood lymphocytes/100 leukocytes 34 % 12-44 Blood monocytes/100 leukocytes 11 % 0-12 Automated blood eosinophils/100 leukocytes 1 % 0-10 Automated blood basophils/100 leukocytes 1 % 0-10 Blood neutrophils automated count (number/volume) 3.3 10*3 1.8-7.8 Blood lymphocytes automated count (number/volume) 2.1 10*3 1.0-4.0 Blood monocytes automated count (number/volume) 0.7 10*3 0.0-1.0 Automated eosinophil count 0.1 10*3/uL 0.0-0.3 Automated blood basophil count (count/volume) 0.0 10*3/uL 0.0-0.1 Comprehensive metabolic panel - 05/29/17 05:39 Serum or plasma sodium measurement (moles/volume) 140 mmol/L 135-145 Serum or plasma potassium measurement (moles/volume) 4.1 mmol/L 3.6-5.0 Serum or plasma chloride measurement (moles/volume) 111 mmol/L 98-107 Carbon dioxide 23 mmol/L 21-32 Serum or plasma anion gap determination (moles/volume) 6 mmol/L 5-14 Serum or plasma urea nitrogen measurement (mass/volume) 7 mg/dL 7-18 Serum or plasma creatinine measurement (mass/volume) 0.67 mg/dL 0.60-1.30 Serum or plasma urea nitrogen/creatinine mass ratio 10 NRG Serum or plasma creatinine measurement with calculation of estimated glomerular filtration rate > NRG Serum or plasma glucose measurement (mass/volume) 108 mg/dL 70-105 Serum or plasma calcium measurement (mass/volume) 7.8 mg/dL 8.5-10.1 Serum or plasma total bilirubin measurement (mass/volume) 0.5 mg/dL 0.1-1.0 Serum or plasma alkaline phosphatase measurement (enzymatic activity/volume) 39 U/L 40-136 Serum or plasma aspartate aminotransferase measurement (enzymatic activity/ volume) 20 U/L 5-34 Serum or plasma alanine aminotransferase measurement (enzymatic activity/volume ) 19 U/L 0-55 Serum or plasma protein measurement (mass/volume) 5.3 g/dL 6.4-8.2 Serum or plasma albumin measurement (mass/volume) 3.6 g/dL 3.2-4.5 Serum or plasma C reactive protein measurement (mass/volume) - 05/29/17 05:39 Serum or plasma C reactive protein measurement (mass/volume) 0.02 mg /dL 0.00-0.50 RMSF IGG TITER - 07/11/17 12:06 RMSF IGG TITER 1:64 titer [facility] [id number] - 07/12/17 16:44 [id number] Negative Negative Serum Ted Feng virus early antibody detection <5.0 0.0-8.9 Serum Ted Feng virus nuclear antibody detection 378.0 0.0-17.9 Serum Ted Feng virus capsid IgG antibody detection >750.0 0.0-17.9 Serum Ted Feng virus capsid IgM antibody detection 11.2 0.0-35.9 EBV EA AB INT Negative Negative Complete blood count (CBC) with automated white blood cell (WBC) differential - 10/13/17 17:36 Blood leukocytes automated count (number/volume) 7.8 10*3/uL 4.3-11.0 Blood erythrocytes automated count (number/volume) 4.54 10*6/uL 4.35-5.85 Venous blood hemoglobin measurement (mass/volume) 14.2 g/dL 11.5-16.0 Blood hematocrit (volume fraction) 40 % 35-52 Automated erythrocyte mean corpuscular volume 88 [foz_us] 80-99 Automated erythrocyte mean corpuscular hemoglobin (mass per erythrocyte) 31 pg 25-34 Automated erythrocyte mean corpuscular hemoglobin concentration measurement ( mass/volume) 36 g/dL 32-36 Automated erythrocyte distribution width ratio 12.1 % 10.0-14.5 Automated blood platelet count (count/volume) 212 10*3/uL 130-400 Automated blood platelet mean volume measurement 11.1 [foz_us] 7.4-10.4 Automated blood neutrophils/100 leukocytes 61 % 42-75 Automated blood lymphocytes/100 leukocytes 28 % 12-44 Blood monocytes/100 leukocytes 9 % 0-12 Automated blood eosinophils/100 leukocytes 1 % 0-10 Automated blood basophils/100 leukocytes 1 % 0-10 Blood neutrophils automated count (number/volume) 4.7 10*3 1.8-7.8 Blood lymphocytes automated count (number/volume) 2.2 10*3 1.0-4.0 Blood monocytes automated count (number/volume) 0.7 10*3 0.0-1.0 Automated eosinophil count 0.1 10*3/uL 0.0-0.3 Automated blood basophil count (count/volume) 0.1 10*3/uL 0.0-0.1 Comprehensive metabolic panel - 10/13/17 17:36 Serum or plasma sodium measurement (moles/volume) 141 mmol/L 135-145 Serum or plasma potassium measurement (moles/volume) 3.7 mmol/L 3.6-5.0 Serum or plasma chloride measurement (moles/volume) 104 mmol/L 98-107 Carbon dioxide 28 mmol/L 21-32 Serum or plasma anion gap determination (moles/volume) 9 mmol/L 5-14 Serum or plasma urea nitrogen measurement (mass/volume) 7 mg/dL 7-18 Serum or plasma creatinine measurement (mass/volume) 0.73 mg/dL 0.60-1.30 Serum or plasma urea nitrogen/creatinine mass ratio 10 NRG Serum or plasma creatinine measurement with calculation of estimated glomerular filtration rate > NRG Serum or plasma glucose measurement (mass/volume) 87 mg/dL 70-105 Serum or plasma calcium measurement (mass/volume) 9.9 mg/dL 8.5-10.1 Serum or plasma total bilirubin measurement (mass/volume) 0.6 mg/dL 0.1-1.0 Serum or plasma alkaline phosphatase measurement (enzymatic activity/volume) 53 U/L 40-136 Serum or plasma aspartate aminotransferase measurement (enzymatic activity/ volume) 17 U/L 5-34 Serum or plasma alanine aminotransferase measurement (enzymatic activity/volume ) 15 U/L 0-55 Serum or plasma protein measurement (mass/volume) 7.2 g/dL 6.4-8.2 Serum or plasma albumin measurement (mass/volume) 4.6 g/dL 3.2-4.5 Lipase - 10/13/17 17:36 Lipase 8 U/L 8-78 Complete urinalysis with reflex to culture - 10/13/17 18:05 Urine color determination YELLOW NRG Urine clarity determination CLEAR NRG Urine pH measurement by test strip 6 5-9 Specific gravity of urine by test strip 1.015 1.016- 1.022 Urine protein assay by test [...] urinalysis with reflex to culture NO NRG Serum ragweed IgE antibody assay - 10/16/17 15:00 Serum ragweed IgE antibody assay Positive NRG [id number] - 10/16/17 15:00 C DIFFICILE AG + TOXIN A/B. - 10/16/17 15:00 FREE TEXT ENTRY 2 POSITIVE FOR GDH ANTIGEN NRG FREE TEXT ENTRY 3 NEGATIVE FOR TOXINS A AND B NRG RESULTS INDETERMINANT; MOLECULAR TEST TO FOLLOW NRG Stool bacteria identification by culture - 10/16/17 15:00 Encounters ACCT No. Visit Date/Time Discharge Status Pt. Type Provider Facility Loc./Unit Complaint [id number] 03/28/2013 14:16:00 03/28/2013 23:59:59 CLS Outpatient BETH RIVERA DO [id number] 02/08/2013 08:55:00 02/08/2013 23:59:59 CLS Outpatient BETH RIVERA DO [id number] 12/21/2012 15:45:00 12/21/2012 23:59:59 CLS Outpatient BETH RIVERA DO [id number] 05/03/2012 11:46:00 05/03/2012 23:59:59 CLS Outpatient [id number] 02/09/2012 11:49:00 02/09/2012 23:59:59 CLS Outpatient BALA BIRD APRN [id number] 01/18/2012 15:00:00 01/18/2012 23:59:59 CLS Outpatient [id number] 10/18/2017 12:07:00 10/18/2017 15:20:00 DIS Outpatient MELANIE ACOSTA DO [facility] ENDO NAUSEA/DIARRHEA/ABD PAIN [id number] 10/17/2017 05:34:00 10/17/2017 13:39:00 DIS Outpatient MELANIE ACOSTA DO [facility] PREOP EGD [id number] 10/16/2017 11:59:00 10/16/2017 23:59:59 CLS Outpatient MELANIE ACOSTA DO [facility] LAB DIARRHEA [id number] 10/13/2017 16:35:00 10/13/2017 19:58:00 DIS Emergency JOE PINTO MD [facility] ER STOMACH PAIN/NAUSEA/ DIARRHEA/FEVER [id number] 09/14/2017 10:05:00 09/14/2017 23:59:59 CLS Outpatient DEGRAFFEMICHAEL CHRISTIANSON [facility] RAD AT RISK FOR BONE DENSITY LOSS [id number] 09/11/2017 14:08:00 09/11/2017 23:59:59 CLS Preadmit DEGFFEMICHAEL CHRISTIANSON [facility] RAD SCREENING [id number] 07/12/2017 16:30:00 07/12/2017 23:59:59 CLS Outpatient DEGRAFFEMICHAEL CHRISTIANSON [facility] LAB Z86.19 [id number] 05/28/2017 20:25:00 05/29/2017 15:00:00 DIS Inpatient BETH RIVERA DO [facility] 4TH ENCEPHALITIS, FEVER [id number] 02/16/2017 10:01:00 02/16/2017 16:43:00 DIS Emergency CORBY DOAYAH K [facility] ER SOA,MUCUS [id number] 02/06/2017 10:33:00 02/06/2017 23:59:59 CLS Preadmit DEGRAFFEMICHAEL CHRISTIANSON [facility] RAD BREAST TENDERNESS IN FEMALE [id number] 01/25/2017 10:33:00 01/25/2017 23:59:59 CLS Outpatient DEGMICHAEL DOMINGUEZ [facility] RAD THYROID NODULE E04.1 [id number] 10/31/2016 13:03:00 10/31/2016 23:59:59 CLS Preadmit DEGRAFFEMICHAEL CHRISTIANSON [facility] RAD M41.9 [id number] 10/11/2016 12:08:00 10/11/2016 23:59:59 CLS Outpatient MICHAEL CARY [facility] RAD THYROID NODULE E07.1 [id number] 10/05/2016 13:51:00 10/05/2016 23:59:59 CLS Outpatient DEGFFEMICHAEL CHRISTIANSON [facility] RAD M41.9 [id number] 08/25/2016 07:23:00 08/25/2016 10:15:00 DIS Outpatient MELANIE ACOSTA DO [facility] ENDO BLOOD IN STOOL [id number] 08/22/2016 05:42:00 08/22/2016 11:05:00 DIS Outpatient MELANIE ACOSTA DO B [facility] PREOP BLOOD IN STOOL [id number] 08/06/2016 14:00:00 08/06/2016 17:39:00 DIS Emergency OWEN ADORNO [facility] ER R SIDE PAIN/BACK PAIN [id number] 08/10/2013 11:41:00 08/10/2013 13:36:00 DIS Emergency MACIEJ BLEVINS APRN [facility] ER SWOLLEN GLAND FEVER BODY ACHES [id number] 07/15/2013 15:17:00 Document Registration [id number] 08/21/2017 11:00:00 08/21/2017 23:59:59 [facility] Outpatient DEGFFENRMICHAEL MONTENEGRO [facility] [id number] 07/11/2017 11:40:00 Document Registration [id number] 05/16/2017 14:00:00 Document Registration [id number] 03/03/2017 14:00:00 Document Registration
[2017-11-06] MEDS: LACTATED RINGERS 1,000 ML IV SCH (13:20)
[2017-11-06] MEDS ORDERED: FLU QUADRIvalent (5+ YOA) 2018-2019 (AFLURIA) 0.5 ML IM ONE (13:30)
[2017-11-06] MEDS ORDERED: L.AC1CAP6 PO (14:10)
[2017-11-06] MEDS: VANCOMYCIN ORAL 250 MG/5 ML 120 ML PO SCH ×6 (14:13→23:27)
[2017-11-06] MEDS ORDERED: KETOROLAC 30 MG/ML VIAL IVP NR (15:00)
[2017-11-06 15:20] LABS: BILIRUBIN,URINE NEGATIVE (NEGATIVE); CLARITY,URINE CLEAR; COLOR,URINE YELLOW; GLUCOSE, URINE (UA) NEGATIVE (NEGATIVE); KETONES,URINE NEGATIVE (NEGATIVE); LEUKOCYTE ESTERASE ,URINE NEGATIVE (NEGATIVE); NITRITE,URINE NEGATIVE (NEGATIVE); PH,URINE 7 (5-9); PROTEIN,URINE NEGATIVE (NEGATIVE); UROBILINOGEN,URINE NORMAL (NORMAL)
[2017-11-06] MEDS: ONDANSETRON 4 MG/2 ML (SDV) Z0FRAN IVP PRN ×2 (15:31→23:27)
[2017-11-06 15:44] LABS: BACTERIA,URINE FEW /HPF; WBC,URINE RARE /HPF
[2017-11-06 16:20] VITALS: BP 117/68
[2017-11-06 20:35] VITALS: BP 128/75
[2017-11-06] MEDS: KETOROLAC 30 MG/ML VIAL IVP PRN (23:27)
[2017-11-07 00:30] VITALS: BP 108/66
[2017-11-07 04:00] VITALS: BP 122/76
[2017-11-07] MEDS: LACTATED RINGERS 1,000 ML IV SCH ×4 (04:21→17:18)
[2017-11-07] MEDS: KETOROLAC 30 MG/ML VIAL IVP PRN (06:56)
[2017-11-07] MEDS: VANCOMYCIN ORAL 250 MG/5 ML 120 ML PO SCH ×6 (06:56→18:00)
[2017-11-07 07:03] LABS: BASOPHILS % (AUTO) 1 % (0-10); EOSINOPHILS # (AUTO) 0.1 10^3/uL (0.0-0.3); EOSINOPHILS % (AUTO) 1 % (0-10); HEMATOCRIT 34 % (35-52); LYMPHOCYTES # (AUTO) 1.5 X 10^3 (1.0-4.0); LYMPHOCYTES % (AUTO) 30 % (12-44); MEAN CORPUSCULAR HEMOGLOBIN 31 PG (25-34); MEAN CORPUSCULAR HGB CONC 35 G/DL (32-36); MEAN CORPUSCULAR VOLUME 89 FL (80-99); MEAN PLATELET VOLUME 11.5 FL (7.4-10.4); MONOCYTES # (AUTO) 0.4 X 10^3 (0.0-1.0); MONOCYTES % (AUTO) 8 % (0-12); NEUTROPHILS # (AUTO) 2.9 X 10^3 (1.8-7.8); NEUTROPHILS % (AUTO) 60 % (42-75); PLATELET COUNT 164 10^3/uL (130-400); RED BLOOD COUNT 3.85 10^6/uL (4.35-5.85); RED CELL DISTRIBUTION WIDTH 11.7 % (10.0-14.5); WHITE BLOOD COUNT 4.9 10^3/uL (4.3-11.0)
[2017-11-07 07:13] LABS: ALANINE AMINOTRANSFERASE 15 U/L (0-55); ALBUMIN 3.7 GM/DL (3.2-4.5); ALKALINE PHOSPHATASE 40 U/L (40-136); BILIRUBIN,TOTAL 0.6 MG/DL (0.1-1.0); BUN/CREATININE RATIO 6; CALCIUM 8.6 MG/DL (8.5-10.1); CARBON DIOXIDE 24 MMOL/L (21-32); CHLORIDE 110 MMOL/L (98-107); CREATININE SERUM 0.64 MG/DL (0.60-1.30); GFR ESTIMATED > 60; GLUCOSE 90 MG/DL (70-105); POTASSIUM 4.3 MMOL/L (3.6-5.0); SODIUM 141 MMOL/L (135-145); TOTAL PROTEIN 5.6 GM/DL (6.4-8.2)
[2017-11-07 08:00] VITALS: BP 144/77
[2017-11-07] MEDS: morphine INJ 4 MG/ML 1 ML (VIAL/SYRINGE) IVP PRN ×2 (09:06→22:45)
--- NOTE | 2017-11-07 11:53 | Diagnostic Imaging Report ---
CLINICAL INDICATION: Patient with abdominal pain. Patient had C. difficile, loose stools and history of treatment for [place] Spotted Fever. Exam: KUB x-ray. Comparison: CT scan of the abdomen and pelvis performed with IV contrast dated 05/26/2017. Findings: There are no focal calcifications overlying the expected regions/ pathways of both kidneys, ureters, and bladder regions. Likely phleboliths seen in the pelvis. There is a nonobstructed bowel gas pattern. There is no evidence of abdominal free air. There is no significant stool load seen. Again seen mild levoscoliosis of the lumbar spine. Impression: There is no radiographic evidence for acute abdominal/ pelvic process or urinary tract stones. Dictated by: Dictated on workstation # [id number]
[2017-11-07 12:00] VITALS: BP 125/75
--- NOTE | 2017-11-07 13:14 | Progress Note ---
Subjective Time Seen by a Provider: 13:01 Subjective/Events-last exam Pt seen and examined; states she still feels "run down", but better than yesterday. She states now she has hard BM's and has not seen blood today; did see some yesterday. Pt denies N/V. States she finally took morphine for her headache and it went away. Review of Systems General: No Chills, No Night Sweats Pulmonary: No Dyspnea, No Cough Cardiovascular: No: Chest Pain, Palpitations Gastrointestinal: Abdominal Pain (minimal); No: Nausea, Vomiting Objective Exam Vital Signs Date Time Temp Pulse Resp B/P (MAP) Pulse Ox O2 Delivery O2 Flow Rate FiO2 11/07/17 08:00 Room Air 11/07/17 04:00 98.4 56 16 122/76 (91) 96 Room Air 11/07/17 00:30 97.1 57 16 108/66 (80) 96 Room Air 11/06/17 20:40 Room Air 11/06/17 20:35 98.0 68 20 128/75 (92) 96 Room Air 11/06/17 16:20 98.5 53 24 117/68 (84) 95 Room Air I & O 11/07/17 07:00 Intake Total 2510 ml Output Total 2450 ml Balance 60 ml Capillary Refill : General Appearance: WD/WN, Mild Distress HEENT: PERRL/EOMI, Moist Mucous Membranes Respiratory: Chest Non Tender, Lungs Clear, Normal Breath Sounds, No Accessory Muscle Use, No Respiratory Distress Cardiovascular: Regular Rate, Rhythm, No Edema, No Murmur Gastrointestinal: normal bowel sounds, soft, no organomegaly; No distended Neurologic/Psychiatric: Alert, Oriented x3, No Motor/Sensory Deficits, Normal Mood/Affect, vice president financial II-XII Norm as Tested Skin: Normal Color, Warm/Dry Results Lab Laboratory Tests 11/06/17 15:00: Urine Color YELLOW, Urine Clarity CLEAR, Urine pH 7, Urine Specific [place] 1.005L, Urine Protein NEGATIVE, Urine Glucose (UA) NEGATIVE, Urine Ketones NEGATIVE, Urine Nitrite NEGATIVE, Urine Bilirubin NEGATIVE, Urine Urobilinogen NORMAL, Urine Leukocyte Esterase NEGATIVE, Urine RBC (Auto) NEGATIVE, Urine RBC NONE, Urine WBC RARE, Urine Squamous Epithelial Cells 5-10, Urine Crystals NONE , Urine Bacteria FEWH, Urine Casts NONE, Urine Mucus NEGATIVE, Urine Culture Indicated NO 11/07/17 06:26: White Blood Count 4.9, Red Blood Count 3.85L, Hemoglobin 12.0, Hematocrit 34L, Mean Corpuscular Volume 89, Mean Corpuscular Hemoglobin 31, Mean Corpuscular Hemoglobin Concent 35, Red Cell Distribution Width 11.7, Platelet Count 164, Mean Platelet Volume 11.5H, Neutrophils (%) (Auto) 60, Lymphocytes (%) (Auto) 30 , Monocytes (%) (Auto) 8, Eosinophils (%) (Auto) 1, Basophils (%) (Auto) 1, Neutrophils # (Auto) 2.9, Lymphocytes # (Auto) 1.5, Monocytes # (Auto) 0.4, Eosinophils # (Auto) 0.1, Basophils # (Auto) 0.0, Sodium Level 141, Potassium Level 4.3, Chloride Level 110H, Carbon Dioxide Level 24, Anion Gap 7, Blood Urea Nitrogen 4L, Creatinine 0.64, Estimat Glomerular Filtration Rate > 60, BUN/ Creatinine Ratio 6, Glucose Level 90, Calcium Level 8.6, Corrected Calcium 8.8, Total Bilirubin 0.6, Aspartate Amino Transf (AST/SGOT) 17, Alanine Aminotransferase (ALT/SGPT) 15, Alkaline Phosphatase 40, Total Protein 5.6L, Albumin 3.7 Assessment/Plan Assessment/Plan Assessment/Plan C. Diff Enterocolitis Fatigue probably due to Malnutrition Nausea Pt will be kept on IVF (LR at 150ml/hr) and encouraged clears. She is now on high dose pulsed oral Vancomycin to treat her C. Diff. Pain control and anti-emetics as needed. Ambulate, use IS. Since pt did not have any bleeding today will not prep and do colonoscopy tomorrow. If she has bleeding again or worsening pain, then will reconsider colonoscopy. Otherwise might be better to do colonoscopy as an outpt. She understood this and all questions answered to her satisfaction. Will restart her home meds. Clinical Quality Measures DVT/VTE Risk/Contraindication: Risk Factor Score Per Nursin RFS Level Per Nursing on Admit: 1=Low/No VTE PPX MELANIE ACOSTA DO Nov 07, 2017 13:14
[2017-11-07] MEDS ORDERED: PATIENT MAY USE OWN MEDS, ALL MC SCH (14:30)
[2017-11-07 15:40] VITALS: BP 107/67
[2017-11-07] MEDS: ONDANSETRON 4 MG/2 ML (SDV) Z0FRAN IVP PRN (17:34)
[2017-11-07 19:38] VITALS: BP 130/90
[2017-11-07] MEDS: Escitalopram Oxalate 20 MG TABLET PO SCH (20:48)
[2017-11-07] MEDS: lisINopril 10 MG (PRINIVIL) TABLET PO SCH (20:49)
[2017-11-08] MEDS: VANCOMYCIN ORAL 250 MG/5 ML 120 ML PO SCH ×10 (00:31→23:01)
[2017-11-08] MEDS: LACTATED RINGERS 1,000 ML IV SCH ×4 (00:33→18:46)
[2017-11-08 00:41] VITALS: BP 116/67
[2017-11-08] MEDS: morphine INJ 4 MG/ML 1 ML (VIAL/SYRINGE) IVP PRN (03:49)
[2017-11-08 08:00] VITALS: BP 158/87
[2017-11-08] MEDS: ACETAMINOPHEN 325 MG TABLET PO PRN ×3 (08:18→18:46)
[2017-11-08] MEDS: KETOROLAC 30 MG/ML VIAL IVP PRN ×2 (08:18→16:43)
[2017-11-08] MEDS ORDERED: PROMETHAZINE INJ 25 MG/ML (PHENERGAN) AMP IVP PRN (13:15)
--- NOTE | 2017-11-08 13:24 | Progress Note ---
Subjective Time Seen by a Provider: 13:02 Subjective/Events-last exam Pt seen and examined; states she feels "crappy" today, definitely worse than yesterday. States she has a headache, nausea and started with diarrhea again (but no blood). She does think the diarrhea is yellow; "like before when I got diagnosed the first time with C. Diff". Morphine didn't really work for GUTIERREZ and Zofran is not working for nausea. Review of Systems General: No Chills, No Night Sweats; Fatigue, Malaise Pulmonary: No Dyspnea, No Cough Cardiovascular: No: Chest Pain, Palpitations Gastrointestinal: Nausea, Abdominal Pain, Diarrhea Genitourinary: No Dysuria, No Frequency Objective Exam Vital Signs Date Time Temp Pulse Resp B/P (MAP) Pulse Ox O2 Delivery O2 Flow Rate FiO2 11/08/17 08:00 97.2 71 16 158/87 (110) 100 Room Air 11/08/17 00:41 98.9 67 18 116/67 (83) 96 Room Air 11/07/17 20:00 Room Air 11/07/17 19:38 97.8 58 20 130/90 (103) 98 Room Air 11/07/17 15:40 97.9 60 16 107/67 (80) 95 Room Air I & O 11/08/17 07:00 Intake Total 5627 ml Output Total 5500 ml Balance 127 ml Capillary Refill : General Appearance: WD/WN, Mild Distress HEENT: PERRL/EOMI, Moist Mucous Membranes Respiratory: Chest Non Tender, Lungs Clear, Normal Breath Sounds, No Accessory Muscle Use, No Respiratory Distress Cardiovascular: Regular Rate, Rhythm, No Edema, No Murmur Gastrointestinal: normal bowel sounds, soft, no organomegaly; No distended; tenderness (mild diffuse) Neurologic/Psychiatric: Alert, Oriented x3, No Motor/Sensory Deficits, Normal Mood/Affect, central 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 difficile GDH Antigen & Toxins - Final, Complete Assessment/Plan Assessment/Plan Assessment/Plan C. Diff Enterocolitis Fatigue probably due to Malnutrition Nausea Will continue IVF (LR at 150ml/hr; especially now since she has decreased PO intake), continue clears. Plan is to do colonoscopy and started prep today. Will switch her to Phenergan for nausea. She is now on high dose pulsed oral Vancomycin to treat her C. Diff; will discuss with pharmacy plan for possible Fecal Transplant to treat the C. Diff. Will continue pain control, anti-emetics as needed, ambulate and use IS. She understood this and all questions answered to her satisfaction. Restarted her home meds. Will recheck labs tomorrow am. Discussed risks and complications of the colonoscopy with pt; not limited to pain, bleeding and even intestinal perforation. Clinical Quality Measures DVT/VTE Risk/Contraindication: Risk Factor Score Per Nursin RFS Level Per Nursing on Admit: 1=Low/No VTE PPX MELANIE ACOSTA DO Nov 08, 2017 13:24
[2017-11-08] MEDS: POLYETHYLENE GLYCOL 17 GM (MIRALAX) PACK PO SCH ×2 (13:35→19:49)
[2017-11-08 15:42] VITALS: BP 147/80
[2017-11-08] MEDS: Escitalopram Oxalate 20 MG TABLET PO SCH (20:10)
[2017-11-08] MEDS: lisINopril 10 MG (PRINIVIL) TABLET PO SCH (20:10)
[2017-11-08] MEDS ORDERED: BISACODYL 5 MG (DULCOLAX) TABLET PO ONE ×2 (21:45→22:00)
[2017-11-09] VITALS: BP 122/78
[2017-11-09] MEDS: LACTATED RINGERS 1,000 ML IV SCH ×4 (01:42→21:49)
[2017-11-09] MEDS: morphine INJ 4 MG/ML 1 ML (VIAL/SYRINGE) IVP PRN ×2 (05:26→19:57)
[2017-11-09] MEDS: VANCOMYCIN ORAL 250 MG/5 ML 120 ML PO SCH ×8 (05:32→23:28)
[2017-11-09 08:00] VITALS: BP 130/82
[2017-11-09 09:04] LABS: BASOPHILS % (AUTO) 0 % (0-10); EOSINOPHILS # (AUTO) 0.1 10^3/uL (0.0-0.3); EOSINOPHILS % (AUTO) 1 % (0-10); HEMATOCRIT 34 % (35-52); HEMOGLOBIN 12.3 G/DL (11.5-16.0); LYMPHOCYTES # (AUTO) 1.2 X 10^3 (1.0-4.0); LYMPHOCYTES % (AUTO) 24 % (12-44); MEAN CORPUSCULAR HEMOGLOBIN 32 PG (25-34); MEAN CORPUSCULAR HGB CONC 36 G/DL (32-36); MEAN CORPUSCULAR VOLUME 87 FL (80-99); MEAN PLATELET VOLUME 10.5 FL (7.4-10.4); MONOCYTES # (AUTO) 0.4 X 10^3 (0.0-1.0); MONOCYTES % (AUTO) 8 % (0-12); NEUTROPHILS # (AUTO) 3.4 X 10^3 (1.8-7.8); NEUTROPHILS % (AUTO) 67 % (42-75); PLATELET COUNT 161 10^3/uL (130-400); RED CELL DISTRIBUTION WIDTH 11.7 % (10.0-14.5); WHITE BLOOD COUNT 5.1 10^3/uL (4.3-11.0)
[2017-11-09] MEDS: KETOROLAC 30 MG/ML VIAL IVP PRN ×2 (09:14→17:38)
[2017-11-09] MEDS: ONDANSETRON 4 MG/2 ML (SDV) Z0FRAN IVP PRN (09:17)
[2017-11-09 09:25] LABS: ALANINE AMINOTRANSFERASE 20 U/L (0-55); ALBUMIN 4.1 GM/DL (3.2-4.5); ALKALINE PHOSPHATASE 42 U/L (40-136); BILIRUBIN,TOTAL 0.5 MG/DL (0.1-1.0); BUN/CREATININE RATIO 3; CARBON DIOXIDE 24 MMOL/L (21-32); CHLORIDE 109 MMOL/L (98-107); CREATININE SERUM 0.61 MG/DL (0.60-1.30); GFR ESTIMATED > 60; GLUCOSE 95 MG/DL (70-105); POTASSIUM 3.5 MMOL/L (3.6-5.0); SODIUM 142 MMOL/L (135-145)
--- NOTE | 2017-11-09 11:44 | Progress Note ---
Subjective Date Seen by a Provider: Nov 09, 2017 Time Seen by a Provider: 08:11 Subjective/Events-last exam Pt still reporting feeling malaise and fatigue, worse today. She complains of abdominal discomfort diffusely in bilateral upper quadrants. She also still has headache that "feels like my head is going to split open". The GUTIERREZ is worse with movement. The pain medication helps but then the pain returns soon after. Review of Systems General: No Chills; Fatigue, Malaise HEENT: Head Aches; No Visual Changes, No Eye Pain, No Dysphasia, No Sinus Congestion, No Sore Throat Pulmonary: No Dyspnea, No Cough Cardiovascular: No: Chest Pain, Palpitations, Edema Gastrointestinal: Nausea, Abdominal Pain; No: Vomiting Genitourinary: No Dysuria, No Frequency Musculoskeletal: No: arm pain, leg pain Neurological: No: Weakness, Numbness, Incoordination, Confusion, Seizures Objective Exam Vital Signs Date Time Temp Pulse Resp B/P (MAP) Pulse Ox O2 Delivery O2 Flow Rate FiO2 11/09/17 00:00 98.4 56 18 122/78 (93) 99 Room Air 11/08/17 15:42 98.5 52 20 147/80 (102) 98 Room Air I & O 11/09/17 07:00 Intake Total 5250 ml Output Total 7150 ml Balance -1900 ml Capillary Refill : General Appearance: WD/WN, Mild Distress HEENT: PERRL/EOMI, Moist Mucous Membranes Respiratory: Chest Non Tender, Lungs Clear, Normal Breath Sounds, No Accessory Muscle Use, No Respiratory Distress Cardiovascular: Regular Rate, Rhythm, No Edema, No Murmur Gastrointestinal: normal bowel sounds, soft, no organomegaly; No distended; tenderness (mild diffuse) Neurologic/Psychiatric: Alert, Oriented x3, No Motor/Sensory Deficits, Normal Mood/Affect, salvationist II-XII Norm as Tested Skin: Normal Color, Warm/Dry Results Lab Laboratory Tests 11/09/17 08:50: White Blood Count 5.1, Red Blood Count 3.90L, Hemoglobin 12.3, Hematocrit 34L, Mean Corpuscular Volume 87, Mean Corpuscular Hemoglobin 32, Mean Corpuscular Hemoglobin Concent 36, Red Cell Distribution Width 11.7, Platelet Count 161, Mean Platelet Volume 10.5H, Neutrophils (%) (Auto) 67, Lymphocytes (%) (Auto) 24 , Monocytes (%) (Auto) 8, Eosinophils (%) (Auto) 1, Basophils (%) (Auto) 0, Neutrophils # (Auto) 3.4, Lymphocytes # (Auto) 1.2, Monocytes # (Auto) 0.4, Eosinophils # (Auto) 0.1, Basophils # (Auto) 0.0, Sodium Level 142, Potassium Level 3.5L, Chloride Level 109H, Carbon Dioxide Level 24, Anion Gap 9, Blood Urea Nitrogen 2L, Creatinine 0.61, Estimat Glomerular Filtration Rate > 60, BUN/ Creatinine Ratio 3, Glucose Level 95, Calcium Level 9.0, Corrected Calcium 8.9, Total Bilirubin 0.5, Aspartate Amino Transf (AST/SGOT) 21, Alanine Aminotransferase (ALT/SGPT) 20, Alkaline Phosphatase 42, Total Protein 6.0L, Albumin 4.1 Microbiology 11/07/17 C. difficile GDH Antigen & Toxins - Final, Complete Assessment/Plan Assessment/Plan Assessment/Plan 11/09/17 Student A/P Labs done this morning unremarkable, except for mild hypokalemia at 3.5 Will perform colonoscopy today to see if we can visualize a reason for her ongoing symptoms Continue IVF at 150 ml/hr Continue oral Vancomycin Continue pain control and Phenergan PRN Dr Acosta I was with Jeremy when he saw and examined this pt; I agree with all the findings in this note. Pt has colonoscopy scheduled today; hopefully that will give us some more information. At this point all we can do is continue to treat her symptoms. C. Diff repeat came back as negative. Clinical Quality Measures DVT/VTE Risk/Contraindication: Risk Factor Score Per Nursin RFS Level Per Nursing on Admit: 1=Low/No VTE PPX JEREMY MELO MEDICAL STUDENT Nov 09, 2017 11:44 MELANIE ACOSTA DO Nov 09, 2017 12:02
[2017-11-09] MEDS ORDERED: LACTATED RINGERS 1,000 ML IV ONE (12:22)
[2017-11-09] MEDS ORDERED: MIDAZOLAM 2 MG/2 ML (VERSED) VIAL ONE (12:24)
[2017-11-09] MEDS ORDERED: proPOfol 200 MG/20 ML (DIPRIVAN) VIAL IV ONE (12:24)
[2017-11-09] MEDS ORDERED: LACTATED RINGERS 1,000 ML IV STA (12:43)
--- NOTE | 2017-11-09 12:52 | Progress Note-Post Operative ---
Post-Operative Progess Note Surgeon (s)/Operations Associate (s) Surgeon MELANIE ACOSTA DO Operations Associate: LIZZETTE Pena Pre-Operative Diagnosis Hx of C. Diff, Abdominal pain Post-Operative Diagnosis Same, questionable C. Diff healing Procedure & Operative Findings Date of Procedure 11/09/17 Procedure Performed/Findings Colonoscopy Anesthesia Type IV sedation by Anesthesia Estimated Blood Loss Estimated blood loss (mL): none Specimens/Packing Specimens Removed none MELANIE ACOSTA DO Nov 09, 2017 12:52
--- NOTE | 2017-11-09 14:16 | OPERATIVE REPORT ---
DATE OF SERVICE: 11/09/2017 PREOPERATIVE DIAGNOSIS: History of abdominal pain and C. diff. POSTOPERATIVE DIAGNOSES: History of abdominal pain and C. diff with questionable appeared to be healing C. diff. She had some yellowish mucus. PROCEDURE: Colonoscopy. SURGEON: Malachi Jimenez D.O. LEATHER LACER: Jannie Tinajero, 3. SPECIMENS: None. BLOOD LOSS: None. FLUIDS: Per anesthesia. POSTOPERATIVE CONDITION: Stable. ANESTHESIA: IV sedation by the anesthesiologist. INDICATION FOR PROCEDURE: The patient is a 42-year-old female who had a diagnosis of C. difficile and was treated with oral antibiotics and outpatient. It improved within 2 days. After she stopped, it got worse. She was restarted on oral vancomycin, but then again got worse, not feeling well, unable to eat or drink, and she was admitted to the hospital for inability to take p.o.. When in hospital, she has continued to feel bad and has not really ever felt better, has had abdominal pain. In fact today was even worse, so I elected to do a colonoscopy to make sure that C. diff was not getting worse. FINDINGS: The patient had some yellowish mucusy places seen in the colon, but all these were easily washed off, was not normal C. diff picture, and there was no ulcerations and not really any erythema. PROCEDURE NOTE: After informed consent was obtained, the patient was brought to the endoscopy suite and placed in the left lateral decubitus position. She was administered IV sedation by the anesthesiologist, who then monitored her vitals the entire time and her pulse ox. A scope was inserted, pushed all the way about 140 cm, able to get all the way to cecum. On the way in, noted some yellowish mucusy areas, pushed passed easily to get all the way to cecum, took a picture of appendiceal orifice, noted the ileocecal valve, and then slowly withdrew the scope insufflating to look circumferentially around looking at the cecum, up the ascending colon to the hepatic flexure, then down the transverse colon and splenic flexure, into the descending colon and down in the sigmoid and finally into the rectum. Throughout here, I saw some yellowish mucusy areas, which normally go along with C. diff, which is yellowish, but has little round spots that is stuck to the wall. These were able to be easily flushed off saline. There were no ulcers seen. No erythema, no obvious acute C. diff infection. She had some minimal internal hemorrhoids, but no other obvious pathology was seen. Scope was removed. The patient tolerated the procedure and she was recovered in the endoscopy suite. Job ID: [id number] DocumentID: [id number] Dictated Date: 11/09/2017 12:55:53 Dramatic Arts Historian Date: 11/09/2017 14:15:26 Dictated By: DO DANNI SHEEHAN
[2017-11-09] MEDS ORDERED: CATHETER FLUSH 10 ML SYR IV PRN (15:45)
[2017-11-09] MEDS ORDERED: NS 250 ML (IVPB) BAG IV ONE (15:45)
[2017-11-09] MEDS ORDERED: IOHEXOL 350 MG/ML 100 ML (OMNIPAQUE 350) VIAL IV ONE (15:45)
[2017-11-09 16:38] VITALS: BP 122/78
--- NOTE | 2017-11-09 17:27 | Diagnostic Imaging Report ---
CLINICAL INDICATION: Patient with upper abdominal pain, diarrhea, and nausea. Patient has past surgical history of gallbladder resection, hysterectomy, and one ovary removed, unsure which one. Patient has no history of cancer. EXAM: CT scan of the abdomen and pelvis performed with 100 cc of Omnipaque 350 IV contrast. Coronal and sagittal reformatted images were created. COMPARISON: CT scan of the abdomen and pelvis performed with contrast dated 05/28/2017. FINDINGS: Calcified nodules in the right lung base are again seen. Visualized lung bases are clear. There is again seen mild left curvature of the lumbar spine. Gallbladder is surgically resected as noted on the prior study. Splenule is seen near the inferior aspect of the splenic hilum. The liver, spleen, pancreas, and adrenal glands are unremarkable. Both kidneys are unremarkable with no hydronephrosis, stone, or mass. There is no stone seen within the ureters. There is interval bowel wall thickening involving the first and second portions of the duodenum with no adjacent fat stranding. There is narrowing of the second portion of the duodenum as noted on the prior study. There is a similar-sized duodenal diverticulum seen which has air within it near the second portion of the duodenum. The remainder of the small bowel are unremarkable. The appendix is unremarkable. There is a [id number] amount of fluid with air-fluid levels seen within the right colon, left colon, and rectosigmoid region. This may be related to patient's history of diarrhea. There is mild bowel wall thickening in the region of the right colon and rectosigmoid region, which is nonspecific. There is no intra-abdominal free air or free fluid. There is no abdominal lymphadenopathy. Again noted prominence of the right adnexal region, which measures grossly 4.0 cm x 2.5 cm and is slightly ill-defined on this exam. This may just represent an ovarian cyst. The uterus is surgically resected. There are no left adnexa/ovary visualized. The bladder is fluid filled with no gross abnormality. The extra-abdominal and extrapelvic soft tissue structures are unremarkable. IMPRESSION: 1: There is interval development of bowel wall thickening involving the first and second portions of the duodenum of unknown etiology. Duodenitis may be considered. There is no adjacent fat stranding. 2: There is a rbuhu-go-orenejfk amount of fluid with air-fluid levels seen within the right colon, left colon, and rectosigmoid region. This may be related to patient's history of diarrhea. Colitis may be considered, although the only area of mild bowel wall thickening is seen in the left colon and rectosigmoid region. 3: Postop changes to the abdomen, as described above. 4: There is mild prominence of the right adnexal region, which may represent ovarian cyst. Followup transvaginal ultrasound in six weeks is suggested to evaluate for resolution of this finding. Dictated by: Dictated on workstation # [id number]
[2017-11-09 20:18] VITALS: BP 107/69
[2017-11-09] MEDS: lisINopril 10 MG (PRINIVIL) TABLET PO SCH (20:21)
[2017-11-09] MEDS: Escitalopram Oxalate 20 MG TABLET PO SCH (20:21)
[2017-11-09] MEDS: ACETAMINOPHEN 325 MG TABLET PO PRN (23:28)
[2017-11-10 00:04] VITALS: BP 110/67
[2017-11-10] MEDS: VANCOMYCIN ORAL 250 MG/5 ML 120 ML PO SCH ×4 (05:59→12:00)
--- NOTE | 2017-11-10 07:27 | Progress Note ---
Subjective Time Seen by a Provider: 07:04 Subjective/Events-last exam Pt seen and examined, states she still has a headache and pain across upper abdomen. She tolerated the soft diet yesterday. Still has nausea, but no vomiting. CT showed some changes in 1st and 2nd portion of duodenum (thickened) but no surrounding inflammation. Review of Systems General: No Chills, No Night Sweats HEENT: Head Aches; No Visual Changes Pulmonary: No Dyspnea, No Cough Cardiovascular: No: Chest Pain, Palpitations Gastrointestinal: Nausea, Abdominal Pain; No: Vomiting Genitourinary: No Dysuria, No Frequency Objective Exam Vital Signs Date Time Temp Pulse Resp B/P (MAP) Pulse Ox O2 Delivery O2 Flow Rate FiO2 11/10/17 00:04 98.6 65 18 110/67 (81) 98 Room Air 11/09/17 20:18 97.6 57 18 107/69 (82) 98 11/09/17 16:38 98.7 69 20 122/78 (93) 98 Room Air 11/09/17 08:00 99.0 69 20 130/82 (98) 97 Room Air 11/09/17 08:00 Room Air I & O 11/10/17 07:00 Intake Total 3540 ml Output Total 3500 ml Balance 40 ml Capillary Refill : General Appearance: WD/WN, Mild Distress HEENT: PERRL/EOMI, Moist Mucous Membranes Respiratory: Chest Non Tender, Lungs Clear, Normal Breath Sounds, No Accessory Muscle Use, No Respiratory Distress Cardiovascular: Regular Rate, Rhythm, No Edema, No Murmur Gastrointestinal: normal bowel sounds, soft, no organomegaly; No distended; tenderness (mild diffuse mostly upper) Neurologic/Psychiatric: Alert, Oriented x3, No Motor/Sensory Deficits, Normal 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, 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 as 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 Skin: Normal Color, Warm/Dry Results Lab Laboratory Tests 11/09/17 08:50: White Blood Count 5.1, Red Blood Count 3.90L, Hemoglobin 12.3, Hematocrit 34L, Mean Corpuscular Volume 87, Mean Corpuscular Hemoglobin 32, Mean Corpuscular Hemoglobin Concent 36, Red Cell Distribution Width 11.7, Platelet Count 161, Mean Platelet Volume 10.5H, Neutrophils (%) (Auto) 67, Lymphocytes (%) (Auto) 24 , Monocytes (%) (Auto) 8, Eosinophils (%) (Auto) 1, Basophils (%) (Auto) 0, Neutrophils # (Auto) 3.4, Lymphocytes # (Auto) 1.2, Monocytes # (Auto) 0.4, Eosinophils # (Auto) 0.1, Basophils # (Auto) 0.0, Sodium Level 142, Potassium Level 3.5L, Chloride Level 109H, Carbon Dioxide Level 24, Anion Gap 9, Blood Urea Nitrogen 2L, Creatinine 0.61, Estimat Glomerular Filtration Rate > 60, BUN/ Creatinine Ratio 3, Glucose Level 95, Calcium Level 9.0, Corrected Calcium 8.9, Total Bilirubin 0.5, Aspartate Amino Transf (AST/SGOT) 21, Alanine Aminotransferase (ALT/SGPT) 20, Alkaline Phosphatase 42, Total Protein 6.0L, Albumin 4.1 Microbiology 11/07/17 C. difficile GDH Antigen & Toxins - Final, Complete Assessment/Plan Assessment/Plan Assessment/Plan Upper abdominal pain Nausea C. Diff - negative on last stool culture, although colonoscopy yesterday still saw some yellow mucous on narayan; no active C. Diff or ulcerations I am unsure why pt has continued abdominal pain and headache; both could be due to her oral ABX or not eating. Duodenal thickening could cause the pain, but no inflammation around it.....which makes it less likely. She had a recent EGD and it was basically normal; question if repeating is worthwhile. I think we need to slowly increase her diet, possibly stop ABX in 3-5 days (not give full pulsed dose), and send her home in the next day or so. I am not sure she is getting anything in hospital that she can't get at home; labs are normal and she does not appear to be getting worse. Clinical Quality Measures DVT/VTE Risk/Contraindication: Risk Factor Score Per Nursin RFS Level Per Nursing on Admit: 1=Low/No VTE PPX MELANIE ACOSTA DO Nov 10, 2017 07:27
[2017-11-10 08:00] VITALS: BP 141/81
[2017-11-10] MEDS: ACETAMINOPHEN 325 MG TABLET PO PRN ×2 (09:50→16:19)
[2017-11-10] MEDS: KETOROLAC 30 MG/ML VIAL IVP PRN ×2 (09:50→19:26)
[2017-11-10] MEDS: LACTATED RINGERS 1,000 ML IV SCH ×3 (10:22→17:13)
[2017-11-10 15:50] VITALS: BP 122/76
[2017-11-10] MEDS: Escitalopram Oxalate 20 MG TABLET PO SCH (20:59)
[2017-11-10] MEDS: lisINopril 10 MG (PRINIVIL) TABLET PO SCH (21:00)
[2017-11-11] VITALS: BP 132/77
[2017-11-11] MEDS: ACETAMINOPHEN 325 MG TABLET PO PRN (06:14)
[2017-11-11 08:00] VITALS: BP 139/78
--- NOTE | 2017-11-11 12:24 | Progress Note (SOAP) ---
Subjective Date Seen by a Provider: Nov 11, 2017 Time Seen by a Provider: 10:50 Subjective/Events-last exam Patient reports doing much better and tolerating diet. Ambulating. No N/V. No fevers/chills. Having BMs and passing gas. Reports that she feels like she can go home. Objective Exam Vital Signs Date Time Temp Pulse Resp B/P (MAP) Pulse Ox O2 Delivery O2 Flow Rate FiO2 11/11/17 08:00 98.7 72 16 139/78 (98) 99 Room Air 11/11/17 00:00 98.4 68 20 132/77 (95) 98 Room Air 11/10/17 15:50 99.9 65 20 122/76 (91) 98 Room Air I & O 11/11/17 07:00 Intake Total 3630 ml Output Total 5000 ml Balance -1370 ml Capillary Refill : General Appearance: No Apparent Distress, WD/WN Neck: Full Range of Motion, Normal Inspection, Non Tender, Supple Respiratory: Normal Breath Sounds, No Accessory Muscle Use, No Respiratory Distress Cardiovascular: Regular Rate, Rhythm, No Edema Gastrointestinal: normal bowel sounds, soft, tenderness (epigastric area and lower abdomen) Extremity: Normal Capillary Refill, Normal Inspection, Normal Range of Motion Neurologic/Psychiatric: Alert, Oriented x3 Skin: Normal Color, Warm/Dry Results Lab Microbiology 11/07/17 C. difficile GDH Antigen & Toxins - Final, Complete Assessment/Plan Assessment/Plan Assess & Plan/Chief Complaint A 42 year old female with Upper abdominal pain, Nausea, history of C. Diff but last stool culture was negative. Will DC patient home and have her follow up with Dr. Jimenez. Clinical Quality Measures DVT/VTE Risk/Contraindication: Risk Factor Score Per Nursin RFS Level Per Nursing on Admit: 1=Low/No VTE PPX HARINDER CARIAS APRN Nov 11, 2017 12:24
[2017-11-11 12:29] VITALS: BP 139/78
--- NOTE | 2017-11-14 08:40 | Physician Query Clarification ---
PQ-Further Specificity Admission/Discharge Admission Date: Nov 06, 2017 at 11:55 Discharge Date: Nov 11, 2017 at 12:50 The medical record reflects the following clinical scenario: History/Risk Factors: hx c. diff Clinical Findings: diffuse abdominal pain, GUTIERREZ, nausea, yellowish mucous in colon, fatigue Treatment: oral vancomycin, IV fluids Question: Can you further specify diagnosis/condition per the clinical indicators above? Please document below. 1. c diff enterocolitis 2. Diffuse abdominal pain, etiology unknown. C. diff ruled out. 3. Other, with explanation of the clinical findings. 4. Clinically undetermined, no explanation for the clinical findings. PHYSICIAN RESPONSE Can you specify per above: 1 In responding to this query, please exercise your independent professional judgment. The purpose of this communication is to more accurately reflect the complexity of your patients condition. The fact that a question is asked does not imply that any particular answer is desired or expected. Thank you for your timely response to this clarification. Requestors name: Rex THIS PHYSICIAN QUERY FORM IS A PERMANENT PART OF THE MEDICAL RECORD REX MEADE Nov 14, 2017 08:40 MELANIE ACOSTA DO Nov 23, 2017 23:22
--- NOTE | 2017-11-28 14:43 | Discharge Summary ---
Diagnosis/Chief Complaint Date of Admission Nov 06, 2017 at 11:55 Date of Discharge Nov 11, 2017 at 12:50 Discharge Date: Nov 11, 2017 Admission Diagnosis Admission Diagnosis C. Diff Enterocolitis Malnutrition Nausea Discharge Diagnosis Same plus Headache Reason Hospital Visit Patient was admitted directly from my office secondary to C. difficile enterocolitis malnutrition nausea. It is felt that she be admitted with IV fluids restarted on by mouth vancomycin at a possibly higher dose. Discharge Summary Discharge Physical Examination Allergies: Coded Allergies: No Known Drug Allergies (Verified , 08/25/16) General Appearance: Alert, Oriented X3 HEENT: PERRLA, EOMI Respiratory: Clear to Auscultation, Normal Air Movement Cardiovascular: Regular Rate, No Murmurs Abdominal: Normal Bowel Sounds, Soft Hospital Course Patient was admitted on the directly from my office. Slowly over the next 4 days she then started improving although she did have episodes of problems with headaches and needed to take medications for continued to have some nausea and vomiting and some diarrhea. Slowly all these symptoms improved until she was subsequently discharged home on the . Otherwise discharged home in stable condition had stopped oral vancomycin because thought that this could be contributing to some of her symptoms and her stool cultures came back as negative for C. difficile. Discharge Instructions to patient/family Please see electronic discharge instructions given to patient. Discharge Medications Reviewed and agree with Discharge Medication list on patient's Discharge Instruction sheet Clinical Quality Measures DVT/VTE Risk/Contraindication: Risk Factor Score Per Nursin RFS Level Per Nursing on Admit: 1=Low/No VTE PPX MELANIE ACOSTA DO Nov 28, 2017 14:43
== END 2017-11-11 12:50 | disposition home or self-care (01) | DRG 372 ==
LOC: 4TH 11:55
PROVIDERS: ADMIT Surgery; ATTEND Surgery
PROC: 0DJD8ZZ Inspection of Lower Intestinal Tract, Via Natural or Artificial Opening Endoscopic (ICD-10-PCS; principal; 2017-11-09 12:20)
DX: A04.72 Enterocolitis due to Clostridium difficile, not specified as recurrent (principal); R10.84 Generalized abdominal pain; R51 Headache; E46 Unspecified protein-calorie malnutrition; E87.6 Hypokalemia
CPT/HCPCS: 36415; 74018; 74177; 80053; 81000; 85025; 87324; 87449

== ENCOUNTER → 2017-12-28 | Outpatient (CLI) | payer BC ==
[~2017-12-28] MED LIST changes: +L.AC1CAP6 PO
[2017-12-28 16:32] LABS: BASOPHILS # (AUTO) 0.1 10^3/uL (0.0-0.1); BASOPHILS % (AUTO) 1 % (0-10); EOSINOPHILS # (AUTO) 0.1 10^3/uL (0.0-0.3); EOSINOPHILS % (AUTO) 2 % (0-10); HEMATOCRIT 37 % (35-52); HEMOGLOBIN 12.9 G/DL (11.5-16.0); LYMPHOCYTES # (AUTO) 1.8 X 10^3 (1.0-4.0); LYMPHOCYTES % (AUTO) 33 % (12-44); MEAN CORPUSCULAR HGB CONC 35 G/DL (32-36); MEAN CORPUSCULAR VOLUME 87 FL (80-99); MEAN PLATELET VOLUME 10.6 FL (7.4-10.4); MONOCYTES # (AUTO) 0.4 X 10^3 (0.0-1.0); MONOCYTES % (AUTO) 8 % (0-12); NEUTROPHILS # (AUTO) 3.1 X 10^3 (1.8-7.8); NEUTROPHILS % (AUTO) 57 % (42-75); PLATELET COUNT 211 10^3/uL (130-400); RED BLOOD COUNT 4.23 10^6/uL (4.35-5.85); RED CELL DISTRIBUTION WIDTH 12.3 % (10.0-14.5); WHITE BLOOD COUNT 5.4 10^3/uL (4.3-11.0)
[2017-12-28 16:35] LABS: MEAN CORPUSCULAR HEMOGLOBIN 30 PG (25-34)
[2017-12-28 16:58] LABS: ALANINE AMINOTRANSFERASE 37 U/L (0-55); ALBUMIN 4.4 GM/DL (3.2-4.5); ALKALINE PHOSPHATASE 58 U/L (40-136); BILIRUBIN,TOTAL 0.3 MG/DL (0.1-1.0); BUN/CREATININE RATIO 14; CARBON DIOXIDE 23 MMOL/L (21-32); CHLORIDE 108 MMOL/L (98-107); CHOLESTEROL 162 MG/DL (< 200); CREATININE SERUM 0.64 MG/DL (0.60-1.30); GFR ESTIMATED > 60; GLUCOSE 89 MG/DL (70-105); HDL CHOLESTEROL 47 MG/DL (40-60); POTASSIUM 3.9 MMOL/L (3.6-5.0); SODIUM 141 MMOL/L (135-145); TOTAL PROTEIN 6.9 GM/DL (6.4-8.2); TRIGLYCERIDES 158 MG/DL (<150); VLDL CHOLESTEROL 32 MG/DL (5-40)
== END ==
LOC: LAB 15:50
PROVIDERS: ATTEND Physician Assistant
DX: E04.1 Nontoxic single thyroid nodule (principal); R59.1 Generalized enlarged lymph nodes; N83.201 Unspecified ovarian cyst, right side
CPT/HCPCS: 36415; 80053; 80061; 82306; 82607; 82728; 82746; 83540; 84432; 84443; 85025; 86376; 86800

== ENCOUNTER 2018-01-02 06:39 | Outpatient (CLI) | payer BC ==
[~2018-01-02] VITALS: Ht 162.6 cm; Wt 77.2 kg
== END 2018-01-02 12:36 | disposition home or self-care (01) ==
LOC: PREOP 06:39
PROVIDERS: ATTEND Surgery
DX: Z01.818 Encounter for other preprocedural examination (principal)

== ENCOUNTER 2018-01-02 22:34 | Emergency (ER) | payer BC ==
[~2018-01-02] VITALS: Ht 162.6 cm; Wt 77.2 kg
[2018-01-02 22:40] VITALS: BP_SYST 101; BP_SYST 104; BP_SYST 96; BP_DIAS 72; BP_DIAS 73; BP_DIAS 74
[2018-01-02] MEDS ORDERED: LACTATED RINGERS 1,000 ML IV ONE ×2 (22:57→23:45)
[2018-01-02] MEDS ORDERED: ONDANSETRON 4 MG/2 ML (SDV) Z0FRAN IVP ONE (23:00)
[2018-01-02] MEDS ORDERED: HYOSCYAMINE 0.125 MG (LEVSIN) TAB SL ONE (23:00)
[2018-01-02] MEDS ORDERED: FAMOTIDINE 20MG/2ML IV (PEPCID) IVP ONE (23:00)
[2018-01-02 23:06] LABS: BASOPHILS # (AUTO) 0.1 10^3/uL (0.0-0.1); BASOPHILS % (AUTO) 1 % (0-10); EOSINOPHILS # (AUTO) 0.1 10^3/uL (0.0-0.3); EOSINOPHILS % (AUTO) 1 % (0-10); HEMATOCRIT 40 % (35-52); HEMOGLOBIN 14.3 G/DL (11.5-16.0); LYMPHOCYTES # (AUTO) 1.9 X 10^3 (1.0-4.0); LYMPHOCYTES % (AUTO) 18 % (12-44); MEAN CORPUSCULAR HEMOGLOBIN 30 PG (25-34); MEAN CORPUSCULAR HGB CONC 36 G/DL (32-36); MEAN CORPUSCULAR VOLUME 86 FL (80-99); MEAN PLATELET VOLUME 10.5 FL (7.4-10.4); MONOCYTES % (AUTO) 9 % (0-12); NEUTROPHILS # (AUTO) 7.4 X 10^3 (1.8-7.8); NEUTROPHILS % (AUTO) 71 % (42-75); PLATELET COUNT 285 10^3/uL (130-400); RED BLOOD COUNT 4.71 10^6/uL (4.35-5.85); RED CELL DISTRIBUTION WIDTH 12.6 % (10.0-14.5); WHITE BLOOD COUNT 10.5 10^3/uL (4.3-11.0)
[2018-01-02 23:23] LABS: ALANINE AMINOTRANSFERASE 63 U/L (0-55); ALBUMIN 5.3 GM/DL (3.2-4.5); ALKALINE PHOSPHATASE 64 U/L (40-136); BUN/CREATININE RATIO 12; CALCIUM 10.3 MG/DL (8.5-10.1); CARBON DIOXIDE 23 MMOL/L (21-32); CHLORIDE 102 MMOL/L (98-107); CREATININE SERUM 0.83 MG/DL (0.60-1.30); GFR ESTIMATED > 60; GLUCOSE 105 MG/DL (70-105); MAGNESIUM 2.5 MG/DL (1.8-2.4); POTASSIUM 3.7 MMOL/L (3.6-5.0); SODIUM 138 MMOL/L (135-145); TOTAL PROTEIN 8.3 GM/DL (6.4-8.2)
--- NOTE | 2018-01-02 23:51 | ED General ---
General Chief Complaint: Dizziness/Syncope Stated Complaint: VOMITTING Nursing Triage Note: brought in by [facility] ems for nausea/vomitting, dizziness after taking miralax. Nursing Sepsis Screen: No Definite Risk Source of Information: Patient Exam Limitations: No Limitations History of Present Illness Date Seen by Provider: Jan 02, 2018 Time Seen by Provider: 22:45 Initial Comments This 42 year old woman presents to the ER via EMS with nausea, vomiting, abdominal cramping and dizziness. She has been prepping for colonoscopy and fecal transplant tomorrow with Dr. Acosta. She started drinking the MiraLAX preparation about 17:00. After drinking the preparation she began feeling quite ill. She started vomiting and became very lightheaded. Despite vomiting up much of the MiraLAX, she states her stools are already clear. 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 Allergies and Home Medications Allergies Coded Allergies: No Known Drug Allergies (Verified , 01/02/18) Home Medications Diazepam 5 Mg Tablet, 5 MG PO TID PRN for ANXIETY, (Reported) Escitalopram Oxalate 20 Mg Tablet, 20 MG PO HS, (Reported) Lisinopril 10 Mg Tablet, 10 MG PO HS, (Reported) Patient Home Medication List Home Medication List Reviewed: Yes Review of Systems Review of Systems Constitutional: no symptoms reported EENTM: no symptoms reported Respiratory: no symptoms reported Cardiovascular: see HPI Gastrointestinal: see HPI Genitourinary: no symptoms reported Past Lmhxoxs-Pcvpbs-Cayxws Hx Past Med/Social Hx: Reviewed and Corrections made Patient Social History Alcohol Use: Occasionally Uses Recreational Drug Use: No Smoking Status: Never a Smoker 2nd Hand Smoke Exposure: No Recent Foreign Travel: No Contact w/Someone Who Travel: No Recent Infectious Disease Expo: No Recent Hopitalizations: No Immunizations Up To Date Tetanus Booster (TDap): Unknown PED Vaccines UTD: Yes Seasonal Allergies Seasonal Allergies: No Past Medical History Surgeries: Yes (divated septum sx, hemorrhoidectomy) Gallbladder, Hysterectomy, Oophorectomy (Unilateral), Tonsillectomy Respiratory: No Cardiac: Yes Hypertension Neurological: No : No 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 Disorders: No 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 difficile infections) Hemorrhoids, Chronic Diarrhea, C-Diff Musculoskeletal: Yes Chronic Back Pain Endocrine: Yes (THYROID NODULES) HEENT: No Cancer: No Psychosocial: Yes Anxiety, Depression Integumentary: No Blood Disorders: No (ramos mt spotted fever, derian padron) Adverse Reaction/Blood Tranf: No Family Medical History Arthritis 19 MOTHER Cardiovascular disease 19 MOTHER MATERNAL GRANDFATHER Myocardial infarction MATERNAL GRANDFATHER ( FROM [place]) MATERNAL UNCLE (3 HEART ATTACKS) Neoplasm MATERNAL AUNT (BREAST CANCER) personal h/o RMSF approximately 4-5 years ago. Physical Exam Vital Signs Vital Signs - First Documented 01/02/18 22:35 Temp 97.3 Pulse 77 Resp 18 B/P (MAP) 103/73 (83) Pulse Ox 98 O2 Delivery Room Air Capillary Refill : Less Than 3 Seconds Height, Weight, BMI Height: 5'4.00" Weight: 170lbs. 4.0oz. 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 Norm as Tested Skin: Normal Color, Warm/Dry Progress/Results/Core Measures Suspected Sepsis Recent Fever Within 48 Hours: No Infection Criteria Present: Documented Infection New/Unexplained Altered Menta: No Sepsis Screen: No Definite Risk SIRS Temperature:97.3 Pulse: 86 Respiratory Rate: 18 Laboratory Tests 01/02/18 23:00: White Blood Count 10.5 Blood Pressure 96 /74 Mean: 81 Laboratory Tests 01/02/18 23:00: Creatinine 0.83, Platelet Count 285, Total Bilirubin 1.0 Results/Orders Lab Results Laboratory Tests Test 01/02/18 23:00 Range/Units White Blood Count 10.5 4.3-11.0 10^3/uL Red Blood Count 4.71 4.35-5.85 10^6/uL Hemoglobin 14.3 11.5-16.0 G/DL Hematocrit 40 35-52 % Mean Corpuscular Volume 86 80-99 FL Mean Corpuscular Hemoglobin 30 25-34 PG Mean Corpuscular Hemoglobin Concent 36 32-36 G/DL Red Cell Distribution Width 12.6 10.0-14.5 % Platelet Count 285 130-400 10^3/uL Mean Platelet Volume 10.5 H 7.4-10.4 FL Neutrophils (%) (Auto) 71 42-75 % Lymphocytes (%) (Auto) 18 12-44 % Monocytes (%) (Auto) 9 0-12 % Eosinophils (%) (Auto) 1 0-10 % Basophils (%) (Auto) 1 0-10 % Neutrophils # (Auto) 7.4 1.8-7.8 X 10^3 Lymphocytes # (Auto) 1.9 1.0-4.0 X 10^3 Monocytes # (Auto) 1.0 0.0-1.0 X 10^3 Eosinophils # (Auto) 0.1 0.0-0.3 10^3/uL Basophils # (Auto) 0.1 0.0-0.1 10^3/uL Sodium Level 138 135-145 MMOL/L Potassium Level 3.7 3.6-5.0 MMOL/L Chloride Level 102 98-107 MMOL/L Carbon Dioxide Level 23 21-32 MMOL/L Anion Gap 13 5-14 MMOL/L Blood Urea Nitrogen 10 7-18 MG/DL Creatinine 0.83 0.60-1.30 MG/DL Estimat Glomerular Filtration Rate > 60 BUN/Creatinine Ratio 12 Glucose Level 105 70-105 MG/DL Calcium Level 10.3 H 8.5-10.1 MG/DL Corrected Calcium 8.5-10.1 MG/DL Magnesium Level 2.5 H 1.8-2.4 MG/DL Total Bilirubin 1.0 0.1-1.0 MG/DL Aspartate Amino Transf (AST/SGOT) 42 H 5-34 U/L Alanine Aminotransferase (ALT/SGPT) 63 H 0-55 U/L Alkaline Phosphatase 64 40-136 U/L Total Protein 8.3 H 6.4-8.2 GM/DL Albumin 5.3 H 3.2-4.5 GM/DL My Orders Orders - VALERIO VILLARREAL MD Cbc With Automated Diff (01/02/18 22:49) Comprehensive Metabolic Panel (01/02/18 22:49) Magnesium (01/02/18 22:49) Saline Lock/Iv-Start (01/02/18 22:57) Lactated Ringers (Lr 1000 Ml Iv Solution (01/02/18 22:57) Hyoscyamine Sl Tablet (Levsin Sl Tablet) (01/02/18 23:00) Famotidine Injection (Pepcid Injection) (01/02/18 23:00) Ondansetron Injection (Zofran Injectio (01/02/18 23:00) Saline Lock/Iv-Start (01/02/18 23:45) Lactated Ringers (Lr 1000 Ml Iv Solution (01/02/18 23:45) Medications Given in ED Current Medications Medications Dose Ordered Sig/Narayan Route Start Time Stop Time Status Last Admin Dose Admin Hyoscyamine Sulfate 0.125 mg ONCE ONCE SL 01/02/18 23:00 01/02/18 23:01 DC 01/02/18 23:06 0.125 MG Lactated Ringer's 1,000 ml @ 0 mls/hr Q0M ONCE IV 01/02/18 22:57 01/02/18 22:59 DC 01/02/18 23:06 0 MLS/HR Lactated Ringer's 1,000 ml @ 0 mls/hr Q0M ONCE IV 01/02/18 23:45 01/02/18 23:47 DC 01/02/18 23:49 0 MLS/HR Ondansetron HCl 8 mg ONCE ONCE IVP 01/02/18 23:00 01/02/18 23:01 DC 01/02/18 23:06 8 MG Vital Signs/I&O 01/02/18 01/02/18 01/03/18 22:35 22:40 00:41 Temp 97.3 97.1 Pulse 77 72 86 78 86 Resp 18 16 B/P (MAP) 103/73 (83) 104/73 (83) 112/63 (79) 101/72 (82) 96/74 (81) Pulse Ox 98 99 O2 Delivery Room Air Room Air 01/03/18 00:00 Intake Total 1000 ml Balance 1000 ml Capillary Refill : Less Than 3 Seconds Blood Pressure Mean: 81 Progress Note : Progress Note Patient received 2 L of LR fluid boluses. Levsin was given for abdominal cramping. Symptoms improved. Case was discussed with Dr. Acosta. Both patient and Dr. Acosta feel comfortable returning home after hydration. See discharge instructions. Departure Impression Primary Impression: Nausea and vomiting Qualified Codes: R11.2 - Nausea with vomiting, unspecified Additional Impressions: Lightheadedness C. difficile colitis Abdominal cramping Disposition: 01 HOME, SELF-CARE Condition: Improved Departure-Patient Inst. Decision time for Depature: 23:45 Referrals: ANDREW MURRELL MD (PCP) Primary Care Physician OWEN OCASIO (Family) Primary Care Physician Patient Instructions: Clostridium difficile Add. Discharge Instructions: You may continue to consume a clear liquid diet until 08:00. Use your Zofran (ondansetron) dissolved under the tongue every 4 hours as needed for nausea and vomiting. Return to care if you have worsening symptoms. Otherwise, follow prep instructions per Dr. Acotsa. All discharge instructions reviewed with patient and/or family. Voiced understanding. Copy Copies To 1: MELANIE ACOSTA JOSHUA T MD Jan 02, 2018 23:51
[2018-01-03 00:41] VITALS: BP 112/63
== END 2018-01-03 00:41 | disposition home or self-care (01) ==
LOC: EDUNIT# 22:34 → ER 22:35
DX: A04.72 Enterocolitis due to Clostridium difficile, not specified as recurrent (principal); R42 Dizziness and giddiness; I10 Essential (primary) hypertension; F41.9 Anxiety disorder, unspecified; F32.9 Major depressive disorder, single episode, unspecified; Z90.710 Acquired absence of both cervix and uterus; Z90.89 Acquired absence of other organs; Z87.19 Personal history of other diseases of the digestive system; Z82.49 Family history of ischemic heart disease and other diseases of the circulatory system; Z80.3 Family history of malignant neoplasm of breast
CPT/HCPCS: 36415; 80053; 83735; 85025; 96361; 96374

== ENCOUNTER → 2018-01-03 | Day surgery (SDC) | payer BC ==
[~2018-01-03] VITALS: Ht 162.6 cm; Wt 77.2 kg
[~2018-01-03] MED LIST changes: +LACTATED RINGERS 1,000 ML IV STA; +MIDAZOLAM 2 MG/2 ML (VERSED) VIAL ONE; +PROPOFOL INJECTION 50 ML IV ONE; +proPOfol 200 MG/20 ML (DIPRIVAN) VIAL IV ONE
[2018-01-03 13:05] VITALS: BP 107/78
--- NOTE | 2018-01-03 14:39 | Progress Note-Pre Operative ---
Pre-Operative Progress Note H&P Reviewed The H&P was reviewed, patient examined and no changes noted. Time Seen by Provider: 14:01 Date H&P Reviewed: Jan 03, 2018 Time H&P Reviewed: 14:02 Pre-Operative Diagnosis: Recurrent C. Diff colitis MELANIE ACOSTA DO Jan 03, 2018 14:39
--- NOTE | 2018-01-03 14:40 | Progress Note-Post Operative ---
Post-Operative Progess Note Surgeon (s)/Auto Body Mechanic (s) Surgeon MELANIE ACOSTA DO Auto Body Mechanic: none Pre-Operative Diagnosis Recurrent C. Diff colitis Post-Operative Diagnosis same Procedure & Operative Findings Date of Procedure 01/03/18 Procedure Performed/Findings colonoscopy with fecal transplant Anesthesia Type IV sedation by PRACTICE PHYSICIAN Estimated Blood Loss Estimated blood loss (mL): none Specimens/Packing Specimens Removed none MELANIE ACOSTA DO Jan 03, 2018 14:40
--- NOTE | 2018-01-03 14:40 | Anesthesia-General Post-Op ---
MAC Patient Condition Mental Status/LOC: Same as Preop Cardiovascular: Satisfactory Nausea/Vomiting: Absent Respiratory: Satisfactory Pain: Controlled Complications: Absent Post Op Complications Complications None Follow Up Care/Instructions Patient Instructions None needed. Anesthesiology Discharge Order Discharge Order Patient is doing well, no complaints, stable vital signs, no apparent adverse anesthesia problems. No complications reported per nursing. HAO MCCLAIN CRNA Jan 03, 2018 14:40
--- NOTE | 2018-01-03 14:42 | Endoscopy Discharge Instruct ---
Endo Procedure/Findings Findings Procedure/Findings No obvious C. diff colitis seen, ??some spots and very minimal erythema 1.: Internal Hemorrhoids Discharge Instructions - Activity: You might feel a little sleepy until tomorrow. This is due to the medicine you received to relax you. Until tomorrow, you should: NOT drive a car, operate machinery or power tools. NOT drink any alcoholic beverages. NOT make any important decisions or sign importortant papers. Do not return to work until tomorrow, unless otherwise instructed. Resume previous activities tomorrow. Lay flat for four hours with bottom elevated above head. Diet: Start by taking liquids. If you tolerate liquids, advance to solid food. make an appointment for one week. Notify Physician - If you experience excessive bleeding, unusual abdominal pain, fever, or chest pain, contact your doctor immediately. Follow-Up: - I have received and understand the above instructions and will call my doctor if I have any further questions. Patient Signature Date Nurse Signature Other (Relationship) MELANIE ACOSTA DO Jan 03, 2018 14:42
[2018-01-03 14:50] VITALS: BP 124/76
[2018-01-03 15:45] VITALS: BP 120/71
[2018-01-03 16:03] VITALS: BP 120/71
--- NOTE | 2018-01-04 00:18 | OPERATIVE REPORT ---
DATE OF SERVICE: 01/03/2018 PREOPERATIVE DIAGNOSES: Recurrent Clostridium difficile enterocolitis. POSTOPERATIVE DIAGNOSES: Recurrent Clostridium difficile enterocolitis. PROCEDURE: Colonoscopy with fecal transplant. SURGEON: Malachi Jimenez DO. COMPUTATOR: None. ANESTHESIA: IV sedation by the ANIMAL SCIENTIST. SPECIMENS: None. BLOOD LOSS: None. FLUIDS: Per anesthesia. POSTOPERATIVE CONDITION: Stable. INDICATION FOR PROCEDURE: The patient is a 42-year-old female who has recurrent C. diff treated with oral vancomycin, but it returned so bad that she had a fever, mildly distended abdomen and admitted to the hospital, put on oral vancomycin, but then could not tolerate that, but did improve with the doses she was able to get. Went home and was good for a week or two, but then started having abdominal pain and multiple episodes of diarrhea again and a repeat assay showed C. diff now needing to try a fecal transplant to treat the C. diff. We did have a long discussion with the patient and she did her own research that this is showing very promising results, it is not FDA approved as of yet, but she wanted to go through with this. FINDINGS: The patient had a fecal microbial transplant performed. PROCEDURE NOTE: After informed consent was obtained, the patient was brought to the endoscopy suite, placed in the bed in left lateral decubitus position. She was administered IV sedation by the ANIMAL SCIENTIST who then monitored her vitals the entire time, heart rate, blood pressure and pulse ox and the scope was inserted through the rectum. Pushed all the way to the cecum about 140 cm, try to suction out all the fecal material that we saw on the way in. I did not notice any yellow dots of C. diff infection or colitis. May have been some spots, but not the classic spots, maybe some mild erythema. Once we got all the way to cecum, took a picture of appendiceal orifice and pushed into the small intestine through the ileocecal valve. A sprayed 25 mL of the fecal material into the small intestine and then pushed another 125 into the cecum and then slowly withdrew the scope, tried to suction out some of the air so, that she would not have too much gas to pass and then from the ascending colon through the transverse colon to the splenic flexure and then down in the descending colon sprayed the other mL of fecal material as well as then the final residual little bit into the sigmoid. At this point, then removed the scope. The patient tolerated the procedure and she was recovered in the endoscopy suite. Job ID: [id number] DocumentID: [id number] Dictated Date: 01/03/2018 14:46:14 Health Aide Date: 01/04/2018 00:17:37 Dictated By: MALACHI JIMENEZ DO
== END | disposition home or self-care (01) ==
LOC: ENDO 12:42
PROVIDERS: ATTEND Surgery
DX: A04.71 Enterocolitis due to Clostridium difficile, recurrent (principal); Z80.1 Family history of malignant neoplasm of trachea, bronchus and lung; Z80.3 Family history of malignant neoplasm of breast; I10 Essential (primary) hypertension; F32.9 Major depressive disorder, single episode, unspecified; F41.9 Anxiety disorder, unspecified; K21.9 Gastro-esophageal reflux disease without esophagitis; Z79.899 Other long term (current) drug therapy

== ENCOUNTER → 2018-01-17 | Outpatient (CLI) | payer BC ==
[~2018-01-17] MED LIST changes: -LACTATED RINGERS 1,000 ML IV STA; -MIDAZOLAM 2 MG/2 ML (VERSED) VIAL ONE; -PROPOFOL INJECTION 50 ML IV ONE; -proPOfol 200 MG/20 ML (DIPRIVAN) VIAL IV ONE
--- NOTE | 2018-01-17 13:14 | Diagnostic Imaging Report ---
CLINICAL INDICATION: Patient with thyroid nodule. COMPARISONS: Thyroid ultrasound exam dated 01/25/2017. FINDINGS: THYROID NODULES: There are two small bilateral hypoechoic nodules. One is seen in the medial mid right thyroid gland measuring 2 mm in greatest width and one in the mid left thyroid gland measuring 3 mm in greatest dimension. These nodules are not visualized on the prior study. The previously measured 6 mm hypoechoic nodule in the right lobe of the thyroid gland is not visualized on this exam. THYROID GLAND: Otherwise, the thyroid gland has normal size, shape and echogenicity. The right lobe measures 4.5 cm x 1.8 cm x 2.1 cm and the left lobe measures 4.9 cm x 1.4 cm x 1.7 cm in their three dimensions. ISTHMUS: The isthmus is unremarkable and measures 4 mm in thickness. IMPRESSION: 1: There is interval development of two tiny hypoechoic nodules involving the right and left lobes of the thyroid gland. 2: The previously seen 6 mm hypoechoic nodule in the right lobe of the thyroid gland is not visualized on this exam and may have resolved. 3: Otherwise, the remainder of the thyroid gland exam is unremarkable. Dictated by: Dictated on workstation # [id number]
--- NOTE | 2018-01-17 13:23 | Diagnostic Imaging Report ---
PROCEDURE: US Non-ob pelvis comp/trans. TECHNIQUE: Multiple realtime grayscale images were obtained of the pelvis in various projections endovaginally. Transabdominal imaging was also performed. INDICATION: Ovarian cyst. Comparison is made with prior CT study from 11/09/2017. Prior CT demonstrated questionable area of fullness or mass in the right adnexa. Right ovary does measure 3.4 x 2.5 x 2.3 cm. There is a small cyst involving the right ovary measuring 1.5 x 1.4 x 1.4 cm. Uterus and left ovary are surgically absent. No free fluid is seen. IMPRESSION: Small right ovarian cyst. No other significant abnormality is detected. Dictated by: Dictated on workstation # [id number]
== END ==
LOC: RAD 11:03
PROVIDERS: ATTEND Physician Assistant
DX: N83.201 Unspecified ovarian cyst, right side (principal); E04.1 Nontoxic single thyroid nodule; R59.0 Localized enlarged lymph nodes
CPT/HCPCS: 76536; 76830; 76856

== ENCOUNTER → 2018-01-29 | Outpatient (CLI) | payer BC ==
--- NOTE | 2018-01-29 14:15 | Diagnostic Imaging Report ---
INDICATION: Left-sided cervical lymphadenopathy. Palpable lump left lateral side of the neck. Additional concern for lump on the undersurface of the chin. TECHNIQUE: Multiple real time verde scale sonographic images were obtained of the soft tissue of the neck and the areas of palpable adenopathy. CORRELATION STUDY: None FINDINGS: Ultrasound imaging of the left lateral aspect near the area of palpable concern, this region demonstrates appearance of the submandibular gland which has a generally unremarkable appearance. No additional abnormality is suggested along the inferior margins of the chin. IMPRESSION: 1.No concerning mass lesion suggested on ultrasound imaging of the soft tissue the neck. Clinical correlation is recommended. If further assessment is desired, contrast CT imaging would be recommended. Dictated by: Dictated on workstation # [id number]
== END ==
LOC: RAD 12:52
PROVIDERS: ATTEND Physician Assistant
DX: R59.0 Localized enlarged lymph nodes (principal)
CPT/HCPCS: 76536

== ENCOUNTER → 2018-03-26 | Outpatient (CLI) | payer BC | LOC: LAB 10:54 | PROVIDERS: ATTEND Internal Medicine Gastroenterology | DX: Z09 Encounter for follow-up examination after completed treatment for conditions other than malignant neoplasm (principal); Z86.19 Personal history of other infectious and parasitic diseases | CPT/HCPCS: 87493 ==

== ENCOUNTER 2018-04-29 18:51 | Emergency (ER) | payer BC ==
[~2018-04-29] VITALS: Ht 162.6 cm; Wt 77.1 kg
--- OUTSIDE RECORDS SUMMARY | 2018-04-29 18:56 | XMS REPORT | Clinical Summary ---
Author Author [facility] Organization [facility] Address Unknown Phone Unavailable Care Team Providers Care Bell Maker Name Role Phone Art Valderrama MD PCP Source Comments Some departments are not documenting in the electronic medical record. If you do not see the information that you expected, contact Release of Information in the Health Information Management department at [phone] for further assistance in locating additional records.[facility] Allergies Comments Active Allergy Reactions Severity Noted Date Promethazine DIZZINESS Low 01/19/2018 Medications End Date Status Medication Sig Dispensed Refills Start Date Active escitalopram oxalate Take 20 mg by 0 (LEXAPRO PO) mouth daily. Active diazePAM (VALIUM) 5 mg Take 5 mg by 0 tablet mouth every 6 hours as needed for Anxiety. Active lisinopril (PRINIVIL; Take 10 mg by 0 ZESTRIL) 10 mg tablet mouth daily. Active HYDROcodone/acetaminophen Take 1 tablet 0 (+) (NORCO) 10/325 mg by mouth tablet every 6 hours as needed for Pain Active hyoscyamine sulfate Place one 90 tablet 3 (LEVSIN/SL) 0.125 mg tablet under 9 sublingual tablet tongue every 6 hours as needed for Cramps. Active psyllium (METAMUCIL) 3.4 Take one 60 packet 3 gram packet packet by 9 mouth twice daily. Active loperamide (IMODIUM A-D) Take one 90 capsule 1 2 mg capsule capsule by 9 mouth four times daily as needed for Diarrhea. Active Problems Not on file Encounters Care Team Description Date Type Specialty Pradip Daley MD Diarrhea 03/26/2018 Telephone Gastroenterology Pradip Daley MD History of Clostridium difficile infection (Primary Dx); Irritable bowel syndrome with diarrhea 03/07/2018 Office Visit Gastroenterology from Last 3 Months Social History Date Tobacco Use Types Packs/Day Years Used Never Smoker Smokeless Tobacco: Never Used Alcohol Use Drinks/Week oz/Week Comments No Sex Assigned at Date Recorded Not on file Industry Job Start Date Occupation Not on file Not on file Not on file Travel End Travel History Travel Start No recent travel history available. Last Filed Vital Signs Time Taken Vital Sign Reading 03/07/2018 11:18 AM LEACHER Blood Pressure 127/85 03/07/2018 11:18 AM LEACHER Pulse 61 03/07/2018 11:18 AM LEACHER Temperature 36.7 C (98.1 F) 03/07/2018 11:18 AM LEACHER Respiratory Rate 16 01/19/2018 4:30 PM LEACHER Oxygen Saturation 96% - Inhaled Oxygen - Concentration 03/07/2018 11:18 AM LEACHER Weight 77.2 kg (170 lb 1.6 oz) 03/07/2018 11:18 AM LEACHER Height 162.6 cm (5' 4") 03/07/2018 11:18 AM LEACHER Body Mass Index 29.2 Plan of Treatment Health Maintenance Due Date Last Done Comments PHYSICAL (COMPREHENSIVE) 08/21/1983 EXAM HIV SCREENING 08/21/1991 DTAP/TDAP VACCINES (1994 Tdap) CERVICAL CANCER SCREENING 2006 BREAST CANCER SCREENING 2016 INFLUENZA VACCINE 09/20/2017 Results Not on filefrom Last 3 Months Insurance Payer Benefit Subscriber ID Type Phone Address Plan / Group [facility] [place] [facility] [place] [facility] [facility] Liability Advance Directives Patient has advance care planning documents on file. For more information, please contact: [facility] [address] [place] [address]
--- OUTSIDE RECORDS SUMMARY | 2018-04-29 18:56 | XMS REPORT | Encounter Summary ---
Author Author [facility] Organization [facility] Address Unknown Phone Unavailable Care Team Providers Care Band Sawmill Operator Name Role Phone Art Valderrama MD PCP Reason for Visit * Reason Comments Diarrhea Encounter Details Care Team Description Date Type Department Pradip Daley MD [address] [place] [address] Diarrhea 03/26/2018 Telephone [facility] [address] [facility] [place] [address] Social History Date Tobacco Use Types Packs/Day Years Used Never Smoker Smokeless Tobacco: Never Used Alcohol Use Drinks/Week oz/Week Comments No Sex Assigned at Date Recorded Not on file Industry Job Start Date Occupation Not on file Not on file Not on file Travel End Travel History Travel Start No recent travel history available. as of this encounter Functional Status Date of Assessment Functional Status Response 01/19/2018 Does the patient have a hearing impairment: No as of this encounter Miscellaneous Notes * Telephone Encounter - Renee Carrera RN - 04/05/2018 2:56 PM PROCESS MECHANIC Called and informed ptof below. Pt states she is feeling better right now and would like to hold of on appointment at this time. She will call back if she needs to get back in. Pradip Daley MD You 3 days ago Lets get her to see Sarah Beth in clinic this week (Routing comment) ESS MECHANIC * Telephone Encounter - Zina Ruiz RN - 03/30/2018 4:07 PM PROCESS MECHANIC Pt called to follow up on Dr. Daley's recommendations and will await our return call. ESS MECHANIC * Telephone Encounter - Renee Carrera RN - 03/28/2018 10:06 AM PROCESS MECHANIC Received c diff results which have come back negative. Called and informed pt. Pt states she continues to have fevers, body aches and epigastric abd pain. Last night her fever was 101.5. She feels like she has these episodes which she calls "flare up's" 2-3 times per month ESS MECHANIC * Telephone Encounter - Renee Carrera RN - 03/26/2018 3:06 PM PROCESS MECHANIC Patient called and LM stating she has been having diarrhea as well as a fever the last few days. She is going to have her stool tested again for C diff. Returned call to patient. Pt provided a stool same at [facility]. Awaiting results. ESS MECHANIC in this encounter Plan of Treatment Not on fileas of this encounter Visit Diagnoses Not on filein this encounter
--- OUTSIDE RECORDS SUMMARY | 2018-04-29 18:57 | XMS REPORT ---
Author Author QUINTON GAITAN Organization [facility] Address [address] [place] [address] Care Team Providers Care Physical Chemistry Professor Name Role Phone QUINTON GAITAN Unavailable PROBLEMS Type Condition ICD9-CM Code ZAD26-GZ Code Onset Dates Condition Status SNOMED Code Problem Thyroid nodule E04.1 Active 63549748 Problem Major depressive disorder, single episode, unspecified F32.9 Active 21254719 Problem Severe single current episode of major depressive disorder, without psychotic features F32.2 Active 03323058 Problem Severe episode of recurrent major depressive disorder, without psychotic features F33.2 Active 837067254566 Problem Non morbid obesity due to excess calories E66.09 Active 839660168 Problem Constipation, chronic K59.09 Active 613863118 Problem Scoliosis of thoracolumbar spine, unspecified scoliosis type M41.9 Active 728320485 Problem Abnormal brain MRI R90.89 Active 522276266 Problem Other chronic pain G89.29 Active 674039552 Problem RMSF ([place] spotted 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 Active 653677219 Problem Controlled substance agreement signed Z79.899 Active 480300844 Problem Recurrent fever A68.9 Active 261335175 Problem Abnormal mammogram R92.8 Active 777021472 Problem 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 Active 970738707 Problem Generalized anxiety disorder F41.1 Active 14499497 Problem Mild episode of recurrent major depressive disorder F33.0 Active 230109381 Problem Pain in thoracic spine M54.6 Active 498900869476089 Problem Muscle spasm M62.838 Active 98390492 Problem Radicular low back pain M54.10 Active 50126976 Problem Diarrhea, unspecified type R19.7 Active 51535334 Problem Epigastric abdominal pain R10.13 Active 17163700 Problem Somatic symptom disorder F45.1 Active 374445849 Problem Abnormal mammogram of left breast R92.8 Active 079011496 Problem Acute bilateral low back pain with sciatica, sciatica laterality unspecified M54.40 Active 310050380 Problem Other chronic pain G89.29 Active 897247513 Problem Cervicalgia M54.2 Active 7454458692263 Problem Anxiety F41.9 Active 173142685 Problem Essential hypertension I10 Active 51783250 Problem 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 [id number] [address] Jan, [facility] [id number] [place] [address] Dec, Mild episode of recurrent major depressive disorder F33.0 ; Generalized anxiety disorder F41.1 and Somatic symptom disorder F45.1 [facility] [id number] [address] Oct, [facility] [address] [id number] [place] [id number] Sep, [facility] [id number] [place] [address] Sep, [facility] [address] [id number] [place] [id number] Sep, [facility] [address], [place] [address] Sep, Fibromyalgia M79.7 [facility] [address] [id number] [place] [address] Sep, Epigastric abdominal pain R10.13 and Diarrhea, unspecified type R19.7 [address] [id number] [place] [address] [id number] Sep, Abnormal mammogram of left breast R92.8 [facility] [address] [id number] [place] [id number] Sep, Abnormal mammogram R92.8 [facility] [id number] [place] [id number] Sep, [facility] [place] [address] [id number] [place] [phone] Aug, Abnormal mammogram R92.8 [facility] [place] [address] [id number] [place] [id number] Aug, [facility] [place] [id number] [place] [address] [id number] Aug, [facility] [place] [address] [id number] [place] [id number] Aug, Screening breast examination Z12.31 and At risk for bone density loss Z91.89 [facility] [place] [address] [id number] [place] [id number] Aug, [facility] [place] [address] [id number] [place] [address] [id number] Aug, [facility] [id number] [place] [address] [id number] Aug, Other chronic pain G89.29 [facility] [place] [address] [id number] [place] [address] [id number] Aug, [facility] [place] [address] [id number] [place] [address] [id number] Aug, [facility] [place] [address] [id number] [place] [address] [id number] Aug, [facility] [address] [id number] [place] [address] [id number] Aug, Fibromyalgia M79.7 ; Anxiety F41.9 ; High risk medication use Z79.899 ; Other chronic pain G89.29 ; Recurrent fever A68.9 ; 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 and RMSF ([place] spotted 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 [facility] [place] [address] [id number] [place] [id number] Jul, [facility] [place] [address] [id number] [place] [address] [id number] Jul, [facility] [id number] [place], [place] [id number] Jul, Muscle spasm M62.838 and Anxiety F41.9 [facility] [place] [address] [id number] [place] [id number] Jul, [facility] [place] [address] [id number] [place] [address] Jul, [facility] [place] [address] [id number] [place] [id number] Jul, [facility] [address] [id number] [facility] [place] [id number] Jul, [facility] [place] [address] [id number] [place] [id number] Jul, [facility] [place] [address] [id number] [place] [id number] Jul, [facility] [place] [address] [id number] [place] [id number] Jul, [facility] [place] [address] [id number] [place] [id number] Jul, [facility] [place] [address] [id number] [place] [id number] Jul, [facility] [place] [address] [id number] [place] [id number] Jul, [facility] [place] [address] [id number] [place] [id number] Jul, Radicular low back pain M54.10 ; Other chronic pain G89.29 and Fibromyalgia M79.7 [facility] [place] [address] [id number] [place] [id number] Jul, [facility] [place] [address] [id number] [place] [id number] Jul, [facility] [place] [address] [id number] [place] [address] Jul, [facility] [place] [address] [id number] [place] [id number] June, [facility] [place] [address] [id number] [place] [id number] June, [facility] [place] [address] [id number] [place] [id number] June, 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 ; Recurrent fever A68.9 ; Other chronic pain G89.29 ; Radicular low back pain M54.10 ; Chronic tension- type headache, intractable G44.221 ; Essential hypertension I10 ; RMSF ([place] spotted 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 and Abnormal brain MRI R90.89 [facility] [place] [address] [id number] [place] [id number] June, [address] [id number] [place] [id number] June, 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 and RMSF ([place] spotted 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 [facility] [place] [id number] [place] [address] [id number] June, [facility] [place] [address] [id number] [place] [address] [id number] June, [facility] [place] [address] [id number] [place] [address] [id number] June, RMSF ([place] spotted 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 and 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 [id number] [place] [address] June, [facility] [address] [id number] [place] [address] [id number] June, [facility] [id number] [place] [address] [id number]- [address] June, Radicular low back pain M54.10 and Scoliosis of thoracolumbar spine, unspecified scoliosis type M41.9 [facility] [address] [id number] [place] [id number] June, [facility] [address] [id number] [place] [address] [id number] June, [facility] [place] [address] [id number] [place] [id number] June, [facility] [place] [address] [id number] [place], [place] [id number] June, [facility] [place] [address] [id number] [place], [place] [id number] June, RMSF ([place] spotted 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 [facility] [place] [address] [id number] [place], [place] [id number] June, [facility] [place] [address] [id number] [place] [id number] June, Muscle spasm M62.838 [facility] [place] [address] [id number] [place] [id number] June, [facility] [place] [id number] [place] [id number] May, [facility] [place] [id number] [place], [place] [id number] May, [facility] [place] [id number] [place] [id number] May, [facility] [address] [id number] [place] [phone] May, RMSF ([place] spotted 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 [facility] [address] [id number] [place] [id number] May, Essential hypertension I10 [facility] [address] [facility] [facility] [id number] [address] May, [facility] [place] [id number] [place] [id number] May, Other chronic pain G89.29 [facility] [place] [id number] [place] [id number] May, [facility] [place] [address] [id number] [place] [id number] May, [facility] [place] [id number] [place], [place] [id number] May, [facility] [place] [address] [id number] [place] [address] [id number] May, [facility] [place] [address] [id number] [place] [address] [id number] May, RMSF ([place] spotted 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 ; Nausea R11.0 ; [...] depressive disorder, single episode, unspecified F32.9 [facility] [id number] [place] [address]285- [address] May, [place] spotted fever A77.0 [facility] [place] [id number] [place] [address] [id number] May, [facility] [place] [id number] [place] [address] [id number] May, [facility] [id number] [place] [address] [phone] 4412 May, [facility] [place] [id number] [place] [address] [id number] May, [facility] [place] [id number] [place] [address] [id number] May, [facility] [place] [id number] [place] [address] [id number] May, [facility] [place] [address] [id number] [place] [address] [id number] May, [facility] [place] [address] [id number] [place] [address] [id number] May, [facility] [place] [id number] [place] [address] [id number] May, [facility] [place] [id number] [place] [address] [id number] May, [facility] [place] [id number] [place] [address] [id number] May, [facility] [address] [id number] [place] [id number] May, [facility] [address] [id number] [place], [place] [id number] May, [facility] [address] [id number] [place], [place] [id number] May, [facility] [address] [id number] [place], [place] [id number] May, [facility] [address] [id number] [place], [place] [id number] May, [facility] [address] [id number] [place], [place] [id number] May, Radicular low back pain M54.10 ; Other chronic pain G89.29 ; Fibromyalgia M79.7 ; Cervicalgia M54.2 ; Pain in thoracic spine M54.6 and Scoliosis of thoracolumbar spine, unspecified scoliosis type M41.[address] [id number] [place] [id number] May, [facility] [id number] [place], [place] [id number] Apr, Muscle spasm M62.838 [facility] [address] [id number] [place], [place] [id number] Apr, [facility] [address] [id number] [place], [place] [id number] Apr, Fibromyalgia M79.7 ; Muscle spasm M62.838 ; Other chronic pain G89.29 ; Vision changes H53.9 ; Headache above the eye region R51 ; Major depressive disorder, single episode, unspecified F32.9 ; Neck pain M54.2 and Thyroid nodule E04.1 [facility] [address] [id number] [place], [place] [id number] 14 Apr, 2017 Other chronic pain G89.29 [facility] [address] [id number] [place] [id number] Apr, Chronic tension-type headache, intractable G44.221 [facility] [address] [id number] [place] [address] [id number] 27 Mar, 2017 Other chronic pain G89.29 ; Scoliosis of thoracolumbar spine, unspecified scoliosis type M41.9 ; Muscle spasm M62.838 ; Other chronic pain G89.29 ; Headache above the eye region R51 ; Hospital discharge follow-up Z09 ; Lumbar back pain with radiculopathy affecting right lower extremity M54.17 ; Lumbar back pain with radiculopathy affecting left lower extremity M54.17 and Myalgia M79.1 [facility] [id number] [place] [address] [id number] 16 Mar, 2017 [address] [id number] [place] [address] [id number] Mar, Other chronic pain G89.29 [address] [id number] [place] [address] [id number] 14 Mar, 2017 Radicular low back pain M54.10 [id number] [place] [address] [id number] Feb, [facility] [address] [id number] Feb, [address] [id number] [place] [address] [id number] Feb, Muscle spasm M62.838 [id number] [place] [address] [id number] Feb, Itching L29.9 and Acute bilateral back pain, unspecified back location M54.9 [id number] [place] [address] [id number] Feb, History of pneumonia Z87.01 ; Cough R05 ; Radicular low back pain M54.10 ; Scoliosis of thoracolumbar spine, unspecified scoliosis type M41.9 ; Elevated liver enzymes R74.8 ; Influenza J11.1 ; Severe single current episode of major depressive disorder, without psychotic features F32.2 and Stressful life events affecting family and household Z63.79 [id number] [place] [address] [id number] Jan, Muscle spasm M62.838 [address] [place] [id number] Jan, Post-nasal drainage R09.82 ; Anxiety F41.9 and Cough R05 [address] [id number] Jan, Severe episode of recurrent major depressive disorder, without psychotic features F33.2 [id number] [place] [address] [id number] Jan, Muscle spasm M62.[address] [id number] Jan, Acute recurrent maxillary sinusitis J01.01 and Breast tenderness in female N64.[address] [id number] Nov, [address] [id number] Nov, [address] [id number] Nov, Radicular low back pain M54.10 and Muscle spasm M62.838 [id number] [place] [address] [id number] Nov, [address] [id number] Nov, Viral disease B34.9 ; Fever, unspecified fever cause R50.9 ; Other fatigue R53.83 and Other malaise R53.81 [id number] [place] [address] [id number] Nov, Thyroid nodule E04.1 [place] [id number] [place] [address] [id number] Nov, Severe episode of recurrent major depressive disorder, without psychotic features F33.2 [id number] [place] [address] [id number] Nov, Acute nasopharyngitis J00 [id number] [place] [address] [id number] Oct, Scoliosis of thoracolumbar spine, unspecified scoliosis type M41.9 ; Muscle spasm M62.838 ; Thyroid nodule E04.1 ; Pain in thoracic spine M54.6 ; Other chronic pain G89.29 ; Cervicalgia M54.2 ; Radicular low back pain M54.10 ; Severe episode of recurrent major depressive disorder, without psychotic features F33.2 and High risk medication use Z79.899 [facility] [address] [address]- [address] Oct, [address] [id number] [place] [address] [id number] Sep, Scoliosis of thoracolumbar spine, unspecified scoliosis type M41.9 ; Muscle spasm M62.838 ; Thyroid nodule E04.1 ; Pain in thoracic spine M54.6 ; Other chronic pain G89.29 ; Cervicalgia M54.2 ; Controlled substance agreement signed Z79.899 ; Vaginal yeast infection B37.3 and Radicular low back pain M54.10 [address] [place] [address] [id number] Sep, Scoliosis of thoracolumbar spine, unspecified scoliosis type M41.9 and Muscle spasm M62.838 [address] [place] [address] [id number] Sep, Severe episode of recurrent major depressive disorder, without psychotic features F33.2 [address] [place] [address] [id number] Aug, Severe episode of recurrent major depressive disorder, without psychotic features F33.2 ; Thyroid nodule E04.1 ; Constipation, chronic K59.09 and Non morbid obesity due to excess calories E66.09 [address] [place] [address] [id number] Aug, Non morbid obesity due to excess calories E66.09 and Thyroid nodule E04.1 [address] [place] [address] [id number] Aug, [address] [place] [address] [id number] Jul, Severe episode of recurrent major depressive disorder, without psychotic features F33.2 ; Thyroid nodule E04.1 ; Constipation, chronic K59.09 and Non morbid obesity due to excess calories E66.09 [facility] [address] [id number] [place] [id number] June, Sore throat J02.9 and Major depressive disorder, single episode, unspecified F32.9 [facility] [address]100[place], [place] [address] May, [facility] [id number] [place] [address] 28582- [address] May, [facility] [address]65100[place], [place] [address]- [address] Mar, [facility] [id number] [place] [address]61- [address] Mar, [facility] [address]00565100[place], [place] [address]- [address] Mar, [facility] [address]00565100[place], [place] [address]- [address]66 Mar, [facility] [address]00565100[place], [place] [address]- [address] Jan, [facility] [address]65100[place], [place] [address]- [address] Jan, [facility] [address]00565100[place], [place] [address]- 1740 Jan, [facility] [address]00565100[place], [place] [address]- [address] Jan, [facility] [address]00565100[place], [place] [address]- [address] Jan, [facility] [address]65100[place], [place] [address]- [address] Jan, [facility] [address]65100[place], [place] [address]- [address] Jan, [facility] [address] [address] [address]- [address] Jan, [facility] [place] [facility] [address] [id number] [place]- [address] Dec, [facility] [place] [facility] [address] [id number] [place]- 80[address] Dec, [facility] [place] [facility] [address] [id number] [place] [address]- 9948 Apr, [facility] [place] [facility] [address] [id number] [place] [address]- 6530 Jan, [facility] [place] [facility] [address] [id number] [place] [address]- 4444 Jan, [facility] [place] [facility] [address] [id number] [place] [address]- 5461 Dec, [facility] [place] [facility] [address] [facility] [address] [facility] [id number] [place] [address]- 5757 Dec, [facility] [place] [facility] [address] [id number] [place] [address]- 4328 Nov, [facility] [place] [facility] [address] [id number] [place] [address]- 4922 Nov, [facility] [address] [facility] [id number] [place] [address]- 0463 Sep, [facility] [place] [facility] [address] [id number] [place] [address]- 5609 Sep, [facility] [place] [address] [id number] [place] [id number] Sep, [facility] [place] [address] [id number] [place] [id number] Sep, [facility] [place] [facility] [address] [id number] [place] [address] Sep, [facility] [place] [facility] [address] [id number] [place] [address] Sep, [facility] [address] [id number] [id number] 23 Aug, 2011 [facility] [place] [facility] [address] [id number] [place] [address] Aug, [facility] [place] [facility] [address] [facility] [address] [facility] [id number] [place] [address] Aug, [facility] [place] [facility] [address] [id number] [place] [address] Aug, [facility] [address] [id number] [place] [id number] Jul, [facility] [place] [facility] [address] [id number] [place] [address] Jul, [facility] [place] [facility] [address] [id number] [place] [address] Jul, [facility] [place] [facility] [address] [id number] [place] [address] Jul, [facility] [place] [facility] [address] [id number] [place] [address] May, [facility] [place] [facility] [address] [id number][place] [address] Feb, [facility] [place] [facility] [address] [id number] [address] Jan, [facility] [place] [facility] [address] [id number], [place] [address] 04 Jan, 2009 [facility] [place] [facility] [address] [id number], [place] [address] 28 Dec, 2008 [facility] [place] [facility] [address] [id number] [place] [address] Dec, [facility] [place] [facility] [address] [id number] [place] [address] 14 Dec, 2008 [facility] [place] [facility] [address] [id number] [place] [address] Nov, [facility] [place] [facility] [address] [facility] [address] [facility] [id number], [place] [address] Nov, [facility] [address] [facility] [id number][place] [address] Sep, [facility] [address] [id number], [place] [id number] Jul, [facility] [address] [id number], [place] [address] Mar, [facility] [address] [id number] [address] Nov, [address] [id number], [place] [address] Nov, IMMUNIZATIONS No Known Immunizations SOCIAL HISTORY Never Assessed REASON FOR VISIT Intake PLAN OF CARE VITAL SIGNS MEDICATIONS Medication Instructions Dosage Frequency Start Date End Date Duration Status Lexapro 20 mg 1 tablet Once a day Orally 0 days 0 Active Ibuprofen 200 MG Orally Three times a day 4 tablets as needed 8h Nov, Not-Taking Womens Multivitamin - Not-Taking Lisinopril 10 MG TAKE 1 TABLET BY MOUTH DAILY 90 Active Diazepam 5 mg Orally Once a day for 7 days then every other day for 7 days, then every 3rd day then stop when script is out 1 tablet as needed 28 days Active Fiber Adult Gummies 2 GM Not-Taking Zantac 150 MG Orally Once a day 1 tablet at bedtime 24h Sep, 90 days Not-Taking RESULTS No Results PROCEDURES Procedure Date Ordered Result Body Site Psych diagnostic evaluation, established patient Jan 12, 2018 INSTRUCTIONS MEDICATIONS ADMINISTERED No Known Medications MEDICAL (GENERAL) HISTORY Type Description Date Medical History Fibromyalgia Medical History Chronic Consipation Medical History 08/16/16 [facility] general surgery center, Dr. Jimenez, hemorrhage [...] Medical History MRI- Brain 05/29/2017 Medical History [place] Spotted Tick Fever Medical History Ebstein Feng Virus Surgical History hysterectomy, total with unilateral salpingo-oophorectomy ( USO) Surgical History cholecystectomy Surgical History tonsillectomy and adenoidectomy Surgical History hemorrhoidectomy Surgical History EGD Surgical History colonoscopy 08/25/16 Hospitalization History fever, HTN, abnormal head [facility] 05/28/17
--- OUTSIDE RECORDS SUMMARY | 2018-04-29 18:57 | XMS REPORT ---
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
--- OUTSIDE RECORDS SUMMARY | 2018-04-29 18:57 | XMS REPORT | Encounter Summary ---
Author Author [facility] Organization [facility] Address Unknown Phone Unavailable Care Team Providers Care Aeronautical Engineering Officer Name Role Phone Art Valderrama MD PCP Reason for Visit * Reason Comments Establish Care Hx of C diff * Consult, Test & Treat (Routine) Referred By Contact Referred To Contact Status Reason Specialty Diagnoses / Procedures Malachi Jimenez, DO [address] [place] [address] [place] [address] [place] [id number] No Auth Needed Gastroenterology Diagnoses C-diff/fecal transplant /diarrhea Encounter Details Care Team Description [place] [address] [place] [address] [address] [place] [address] History of Clostridium difficile infection (Primary Dx); Irritable bowel syndrome with diarrhea 03/07/2018 Office Visit [facility] - [facility] [address] [place] [address] Social History Date Tobacco Use Types Packs/Day Years Used Never Smoker Smokeless Tobacco: Never Used Alcohol Use Drinks/Week oz/Week Comments No Sex Assigned at Date Recorded Not on file Industry Job Start Date Occupation Not on file Not on file Not on file Travel End Travel History Travel Start No recent travel history available. as of this encounter Last Filed Vital Signs Time Taken Vital Sign Reading 03/07/2018 11:18 AM RHEOLOGIST Blood Pressure 127/85 03/07/2018 11:18 AM RHEOLOGIST Pulse 61 03/07/2018 11:18 AM RHEOLOGIST Temperature 36.7 C (98.1 F) 03/07/2018 11:18 AM RHEOLOGIST Respiratory Rate 16 - Oxygen Saturation - - Inhaled Oxygen - Concentration 03/07/2018 11:18 AM RHEOLOGIST Weight 77.2 kg (170 lb 1.6 oz) 03/07/2018 11:18 AM RHEOLOGIST Height 162.6 cm (5' 4") 03/07/2018 11:18 AM RHEOLOGIST Body Mass Index 29.2 in this encounter Functional Status Date of Assessment Functional Status Response 01/19/2018 Does the patient have a hearing impairment: No as of this encounter Patient Instructions * Patient Instructions* Renee Carrera RN - 03/07/2018 11:20 AM RHEOLOGIST Please start taking Levsin 0.125 sublingual 4 times daily as needed for cramps. Please take 1 Tbsp/packet of Metamucil with an 8oz glass of water twice daily. Please take imodium 2mg up to 4 times daily as needed for diarrhea. Stool studies have been ordered for you to evaluate for infectious causes of your symptoms. You may machine pecan picker collection supplies at the lab today. Please remember only to turn in specimen if you have liquid stool otherwise the test will be canceled. If you have any questions or concerns please contact Dr. Edi Duran 's nurse, at [phone]. LOGIST in this encounter Progress Notes * Pradip Daley MD - 03/07/2018 11:20 AM RHEOLOGIST Date of Service: 03/07/2018 Subjective: Paulina Hines is a 42 y.o. female. History of Present Illness This is a 42-year-old female who is been referred to us for for history of recurrent C. difficile. Patient used antibiotics in June 2017. Subsequently she started complaining of diarrhea. In September 2017 she was diagnosed with C. difficile colitis. At that time she was having abdominal pain , fever and diarrhea. She was treated with vancomycin and diarrhea improved. However after a few days she had recurrence of symptoms. Again she was treated with another course of vancomycin. Following this there was a repeat of improvement with recurrence of symptoms. 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 Subsequently her symptoms improved. Repeat testing of stool at the end of December was negative for C. difficile. At present patient is having 3-4 bowel movements per day. These can be watery or solid. She denies waking up at night to have a bowel movement. She does complain of abdominal pain along with gurgling sensation and cramping after eating. These improve after a bowel movement. Social historyshe is , has 2 children, does not smoke and drinks alcohol occasionally and does not work Family history is noncontributory. Review of Systems Constitutional: Positive for activity change, diaphoresis, fatigue and fever. Eyes: Positive for itching. Gastrointestinal: Positive for abdominal pain, constipation and diarrhea. Musculoskeletal: Positive for arthralgias, back pain, myalgias, neck pain and neck stiffness. Skin: Positive for rash. Hematological: Positive for adenopathy. Psychiatric/Behavioral: Positive for decreased concentration. The patient is nervous/anxious. All other systems reviewed and are negative. Comprehensive 10 point ROS taken, and otherwise negative except as above. Active Ambulatory Problems Diagnosis Date Noted No Active Ambulatory Problems Resolved Ambulatory Problems Diagnosis Date Noted No Resolved Ambulatory Problems Past Medical History: Diagnosis Date C. difficile colitis 09/2017 Depression 09/2017 Hypertension Social History Socioeconomic History Marital status: Spouse name: Not on file Number of children: Not on file Years of education: Not on file Highest education level: Not on file Occupational History Not on file Tobacco Use Smoking status: Never Smoker Smokeless tobacco: Never Used Substance and Sexual Activity Alcohol use: No Drug use: No Sexual activity: Not on file Other Topics Concern Not on file Social History Narrative Not on file History reviewed. No pertinent family history. Allergies Allergen Reactions Promethazine DIZZINESS There are no active problems to display for this patient. Objective: diazePAM (VALIUM) 5 mg tablet Take 5 mg by mouth every 6 hours as needed for Anxiety. escitalopram oxalate (LEXAPRO PO) Take 20 mg by mouth daily. HYDROcodone/acetaminophen(+) (NORCO) 10/325 mg tablet Take 1 tablet by mouth every 6 hours as needed for Pain lisinopril (PRINIVIL; ZESTRIL) 10 mg tablet Take 10 mg by mouth daily. Vitals: 03/07/18 1118 BP: 127/85 Pulse: 61 Resp: 16 Temp: 36.7 C (98.1 F) TempSrc: Oral Weight: 77.2 kg (170 lb 1.6 oz) Height: 162.6 cm (64") Body mass index is 29.2 kg/m. Physical Exam General appearance alert, cooperative, no distress, appears stated age Head Normocephalic, without obvious abnormality, atraumatic Eyes conjunctivae/corneas clear. EOM's intact. pupils equally round, accommodation normal. Nose Nares normal. No drainage or sinus tenderness. Throat Lips, mucosa, and tongue normal. Teeth and gums normal Neck supple, symmetrical, trachea midline, and no JVD Back symmetric, no curvature. ROM normal. No CVA tenderness Lungs clear to auscultation bilaterally Chest wall no tenderness Heart regular rate and rhythm, S1, S2 normal, no murmur, click, rub or gallop Abdomen soft, non-tender. Bowel sounds normal. No masses, No organomegaly Extremities extremities normal, atraumatic, no cyanosis or edema Pulses 2+ and symmetric Skin Skin color, texture, turgor normal. No rashes or lesions Neurologic Normal Assessment and Plan: This is a 42-year-old female who is been referred to us for for history of recurrent C. difficile. Patient used antibiotics in June 2017. Subsequently she started complaining of diarrhea. In September 2017 she was diagnosed with C. difficile colitis. At that time she was having abdominal pain , fever and diarrhea. She was treated with vancomycin and diarrhea improved. However after a few days she had recurrence of symptoms. Again she was treated with another course of vancomycin. Following this there was a repeat of improvement with recurrence of symptoms. 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 Subsequently her symptoms improved. Repeat testing of stool at the end of December was negative for C. difficile. At present patient is having 3-4 bowel movements per day. These can be watery or solid. She denies waking up at night to have a bowel movement. She does complain of abdominal pain along with gurgling sensation and cramping after eating. These improve after a bowel movement. 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 She denies any alarm symptoms. Stool consistency varies from solid to liquid. We will give her a prescription to get stool tested for C. difficile when she has a loose bowel movement. In the meantime we will start her on Metamucil 1 tablespoon p.o. twice daily along with Imodium 2 mg p.o. 4 times daily as needed and Levsin 0.125 mg sublingual 4 times daily. I asked her to call us if her symptoms worsen. Follow-up on an as-needed basis. Thank you for allowing us to participate in her care and please feel free to call us if you have any questions. LOGIST in this encounter Plan of Treatment Order Schedule Name Priority Associated Diagnoses Expected: 03/07/2018, Expires: 03/07/2019 C DIFFICILE BY PCR Routine History of Clostridium difficile infection as of this encounter Visit Diagnoses Diagnosis History of Clostridium difficile infection - Primary Personal history of other infectious and parasitic disease Irritable bowel syndrome with diarrhea Irritable bowel syndrome in this encounter
--- OUTSIDE RECORDS SUMMARY | 2018-04-29 18:58 | XMS REPORT ---
Author [facility] Address [address] [place] [address] Care Team Providers Care Field Insurance Sales Manager Name Role Phone BALA BIRD Unavailable PROBLEMS Type Condition ICD9-CM Code ZYY11-RQ Code Onset Dates Condition Status SNOMED Code Problem Major depressive disorder, single episode, unspecified F32.9 Active 85683425 Problem Thyroid nodule E04.1 Active 26761265 Problem Severe single current episode of major depressive disorder, without psychotic features F32.2 Active 24324581 Problem Severe episode of recurrent major depressive disorder, without psychotic features F33.2 Active 284670115531 Problem Chronic tension-type headache, intractable G44.221 Active 706134653 Problem Constipation, chronic K59.09 Active 965945677 Problem Essential hypertension I10 Active 00007334 Problem Non morbid obesity due to excess calories E66.09 Active 307186504 Problem 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 Active 085803061 Problem RMSF ([place] spotted fever) A77.0 Active 604002218 Problem Abnormal brain MRI R90.89 Active 258833372 Problem Abnormal mammogram of left breast R92.8 Active 919606920 Problem Diarrhea, unspecified type R19.7 Active 02123686 Problem Controlled substance agreement signed Z79.899 Active 715260309 Problem Other chronic pain G89.29 Active 310944411 Problem Scoliosis of thoracolumbar spine, unspecified scoliosis type M41.9 Active 446406457 Problem 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 Active 521656246 Problem Recurrent fever A68.9 Active 628229073 Problem Epigastric abdominal pain R10.13 Active 38566906 Problem Abnormal mammogram R92.8 Active 964798419 Problem Pain in thoracic spine M54.6 Active 476107606563243 Problem Cervicalgia M54.2 Active 3507137384526 Problem Radicular low back pain M54.10 Active 49032366 Problem Muscle spasm M62.838 Active 82159679 Problem Other chronic pain G89.29 Active 992435715 Problem Fibromyalgia M79.7 Active 357419134 Problem Anxiety F41.9 Active 083987806 Problem Acute bilateral low back pain with sciatica, sciatica laterality unspecified M54.40 Active 228667830 ALLERGIES No Information ENCOUNTERS Encounter Location Date [facility] [address] [id number] [id number] Sep, [facility] [address] [address] Sep, [facility] [address] [id number][place] [id number] Sep, [facility] [address] [address] Sep, Fibromyalgia M79.7 [facility] [address] [id number][place] [address] Sep, Epigastric abdominal pain R10.13 and Diarrhea, unspecified type R19.7 [facility] [id number] [place] [address] [id number] Sep, Abnormal mammogram of left breast R92.8 [facility] [id number] [place] [address] [id number] Sep, Abnormal mammogram R92.8 [facility] [id number], [place] [id number] Sep, [facility] [address] [id number] [place] [address] [id number] Aug, Abnormal mammogram R92.8 [facility] [address] [id number][place] [id number] Aug, [facility] [address] [id number] [place] [address] [id number] Aug, [facility] [address] [id number] [place] [address] [id number] Aug, Screening breast examination Z12.31 and At risk for bone density loss Z91.89 [facility] [id number] [place] [address] [id number] Aug, [facility] [place] [address] [id number] [place] [id number] Aug, [facility] [place] [address] [id number] [place] [id number] Aug, Other chronic pain G89.29 [facility] [place] [address] [id number], [place] [id number] Aug, [facility] [place] [address] [id number] [place] [id number] Aug, [facility] [place] [address] [id number] [place] [address] Aug, [facility] [place] [address] [id number] [place] [id number] Aug, Fibromyalgia M79.7 ; Anxiety F41.9 ; High risk medication use Z79.899 ; Other chronic pain G89.29 ; Recurrent fever A68.9 ; 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 and RMSF ([place] spotted fever) A77.0 [facility] [place] [address] [id number], [place] [id number] Jul, [facility] [place] [address] [id number][place] [id number] Jul, [facility] [place] [address] [id number], [place] 520350[address]74 Jul, Muscle spasm M62.838 and Anxiety F41.9 [facility] [place] [address] [id number], [place] [id number] Jul, [facility] [place] [address] [id number], [place] [id number] Jul, [facility] [place] [address] [id number], [place] [id number] Jul, [facility] [address] [id number], [place] [id number] Jul, [facility] [place] [address] [id number], [place] [id number] Jul, [facility] [place] [address] [id number], [place] [id number] Jul, [facility] [place] [address] [id number], [place] 565[address]93 Jul, [facility] [place] [address] [id number], [place] [id number] Jul, [facility] [place] [address] [id number], [place] [id number] Jul, [facility] [place] [address] [id number], [place] [id number] Jul, [facility] [place] [id number] [place] [address] [id number] Jul, Radicular low back pain M54.10 ; Other chronic pain G89.29 and Fibromyalgia M79.7 [facility] [place] [id number] [place] [address] [id number] Jul, [facility] [place] [address] [id number] [place] [address] [id number] Jul, [facility] [place] [address] [id number], [place] [id number] Jul, [facility] [place] [id number] [place] [address] [id number] June, [facility] [place] [address] [id number], [place] [id number] June, [facility] [id number] [place] [address] [id number] June, 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 ; Recurrent fever A68.9 ; Other chronic pain G89.29 ; Radicular low back pain M54.10 ; Chronic tension- type headache, intractable G44.221 ; Essential hypertension I10 ; RMSF ([place] spotted fever) A77.0 and Abnormal brain MRI R90.89 [facility] [address] [id number], [place] [id number] June, [address] [id number] June, 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 and RMSF ([place] spotted fever) A77.0 [facility] [address] [id number], [place] [id number] June, [facility] [place] [id number], [place] [id number] June, [facility] [place] [id number] [place] [address] [id number] June, RMSF ([place] spotted fever) A77.0 and 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 [facility] [place] [id number], [place] [id number] June, [facility] [id number] [place] [address] [id number] June, [facility] [id number] [place] [address] [id number] June, [facility] [id number] [place] [address] June, [facility] [id number] [place] [address] [id number] June, [facility] [id number] [place] [id number] June, Radicular low back pain M54.10 and Scoliosis of thoracolumbar spine, unspecified scoliosis type M41.9 [facility] [id number], [place] 198432486 June, [facility] [id number], [place] [id number] June, [facility] [id number], [place] [id number] June, [facility] [id number], [place] [id number] June, [facility] [id number], [place] [id number] June, RMSF ([place] spotted fever) A77.0 [facility] [id number] [place] [address] [id number] June, [facility] [id number], [place] [id number] June, Muscle spasm M62.838 [facility] [id number], [place] [id number] June, [facility] [place] [id number] [place] [address] [id number] May, [facility] [place] [id number], [place] [id number] May, [facility] [place] [id number], [place] [id number] May, [facility] [address] [facility] [address] [id number], [place] [id number] May, RMSF ([place] spotted fever) A77.0 [facility] [id number] [place] [address] [id number] May, Essential hypertension I10 [facility] [address] [address] May, [facility] [id number] [place] [address] [id number] May, Other chronic pain G89.29 [facility] [id number] [place] [address] [id number] May, [facility] [id number] [place] [address] [id number] May, [facility] [place] [id number], [place] [id number] May, [facility] [id number], [place] [id number] May, [facility] [id number] [place] [address] [id number] May, RMSF ([place] spotted fever) A77.0 ; Nausea R11.0 ; [...] depressive disorder, single episode, unspecified F32.9 [facility] [address] [id number] [place] [address] May, [place] spotted fever A77.0 [facility] [place] [address] [id number] [place] [id number] May, [facility] [place] [address] [id number] [place] [id number] May, [facility] [address] [id number] [place] [address]- [address] May, [facility] [place] [address] [id number] [place] [id number] May, [facility] [place] [address] [id number] [place] [id number] May, [facility] [place] [address] [id number] [place] [id number] May, [facility] [place] [address] [id number] [place] [id number] May, [facility] [place] [address] [id number] [place] 312684554 May, [facility] [place] [address] [id number] [place] [id number] May, [facility] [place] [address] [id number] [place] [id number] May, [facility] [place] [address] [id number] [place] 614337022 May, [facility] [place] [address] [id number] [place] [id number] May, [facility] [place] [address] [id number] [place] 841903486 May, [facility] [place] [address] [id number] [place] 544841979 May, [facility] [place] [address] [id number] [place] [id number] May, [facility] [place] [address] [id number] [place] [id number] May, [facility] [place] [address] [id number] [place] [id number] May, Radicular low back pain M54.10 ; Other chronic pain G89.29 ; Fibromyalgia M79.7 ; Cervicalgia M54.2 ; Pain in thoracic spine M54.6 and Scoliosis of thoracolumbar spine, unspecified scoliosis type M41.9 [address] [facility] [id number], [place] [id number] May, [facility] [address] [id number], [place] [id number] Apr, Muscle spasm M62.838 [address] [facility] [id number], [place] [id number] Apr, [address] [place] [address] [id number] Apr, Fibromyalgia M79.7 ; Muscle spasm M62.838 ; Other chronic pain G89.29 ; Vision changes H53.9 ; Headache above the eye region R51 ; Major depressive disorder, single episode, unspecified F32.9 ; Neck pain M54.2 and Thyroid nodule E04.1 [address] [facility] [id number], [place] [id number] Apr, Other chronic pain G89.29 [address] [place] [address] [id number] Apr, Chronic tension-type headache, intractable G44.221 [address] [place] [address] [id number] Mar, Other chronic pain G89.29 ; Scoliosis of thoracolumbar spine, unspecified scoliosis type M41.9 ; Muscle spasm M62.838 ; Other chronic pain G89.29 ; Headache above the eye region R51 ; Hospital discharge follow-up Z09 ; Lumbar back pain with radiculopathy affecting right lower extremity M54.17 ; Lumbar back pain with radiculopathy affecting left lower extremity M54.17 and Myalgia M79.1 [address] [id number], [place] [id number] Mar, [address] [place] [address] [id number] Mar, Other chronic pain G89.29 [facility] [id number], [place] [id number] 14 Mar, 2017 Radicular low back pain M54.10 [facility] [id number] [place] [address] [id number] Feb, [facility] [id number] [place] [address] [id number] Feb, [facility] [id number] [place] [address] [id number] Feb, Muscle spasm M62.838 [id number] [place] [address] [id number] Feb, Itching L29.9 and Acute bilateral back pain, unspecified back location M54.9 [address] [id number] [place] [address] [id number] Feb, History of pneumonia Z87.01 ; Cough R05 ; Radicular low back pain M54.10 ; Scoliosis of thoracolumbar spine, unspecified scoliosis type M41.9 ; Elevated liver enzymes R74.8 ; Influenza J11.1 ; Severe single current episode of major depressive disorder, without psychotic features F32.2 and Stressful life events affecting family and household Z63.79 [id number] [place] [address] [id number] Jan, Muscle spasm M62.838 [id number] [place] [address] [id number] Jan, Post-nasal drainage R09.82 ; Anxiety F41.9 and Cough R05 [id number] [place] [address] [id number] 15 Jan, 2017 Severe episode of recurrent major depressive disorder, without psychotic features F33.2 [id number] [place] [address] [id number] Jan, Muscle spasm M62.838 [id number] [place] [address] [id number] 08 Jan, 2017 Acute recurrent maxillary sinusitis J01.01 and Breast tenderness in female N64.4 [id number], [place] [id number] Nov, [address] [place] [address] [id number] Nov, [address] [place] [address] [id number] Nov, Radicular low back pain M54.10 and Muscle spasm M62.838 [id number] [place] [address] [id number] Nov, [id number] [place] [address] [id number] Nov, Viral disease B34.9 ; Fever, unspecified fever cause R50.9 ; Other fatigue R53.83 and Other malaise R53.81 [address] [place] [address] [id number] Nov, Thyroid nodule E04.1 [id number] [place] [address] [id number] Nov, Severe episode of recurrent major depressive disorder, without psychotic features F33.2 [address] [place] [address] [id number] Nov, Acute nasopharyngitis J00 [address] [place] [address] [id number] Oct, Scoliosis of thoracolumbar spine, unspecified scoliosis type M41.9 ; Muscle spasm M62.838 ; Thyroid nodule E04.1 ; Pain in thoracic spine M54.6 ; Other chronic pain G89.29 ; Cervicalgia M54.2 ; Radicular low back pain M54.10 ; Severe episode of recurrent major depressive disorder, without psychotic features F33.2 and High risk medication use Z79.899 [facility] [address]00565100[place], [place] 198837[place]- [address] Oct, [address]100[place], [place] [id number] Sep, Scoliosis of thoracolumbar spine, unspecified scoliosis type M41.9 ; Muscle spasm M62.838 ; Thyroid nodule E04.1 ; Pain in thoracic spine M54.6 ; Other chronic pain G89.29 ; Cervicalgia M54.2 ; Controlled substance agreement signed Z79.899 ; Vaginal yeast infection B37.3 and Radicular low back pain M54.10 [address] [place] [id number] [place] [address] [id number] Sep, Scoliosis of thoracolumbar spine, unspecified scoliosis type M41.9 and Muscle spasm M62.838 [id number] [place] [address] [id number] Sep, Severe episode of recurrent major depressive disorder, without psychotic features F33.2 [id number] [place] [address] [id number] Aug, Severe episode of recurrent major depressive disorder, without psychotic features F33.2 ; Thyroid nodule E04.1 ; Constipation, chronic K59.09 and Non morbid obesity due to excess calories E66.09 [id number] [place] [address] [id number] Aug, Non morbid obesity due to excess calories E66.09 and Thyroid nodule E04.1 [id number] [place] [address] [id number] Aug, [address] [id number] Jul, Severe episode of recurrent major depressive disorder, without psychotic features F33.2 ; Thyroid nodule E04.1 ; Constipation, chronic K59.09 and Non morbid obesity due to excess calories E66.09 [id number] [place] [address] [id number] June, Sore throat J02.9 and Major depressive disorder, single episode, unspecified F32.9 [facility] [address] [address]- [address] May, [facility] [address] [address]- [address] May, [facility] [address] [address]- [address] Mar, [facility] [address] [id number] [place] [address]- [address] 14 Mar, 2013 [facility] [place] [facility] [address] [id number] [place] [address]- 7326 06 Mar, 2013 [facility] [address] [id number] [place] [address]- 2836 06 Mar, 2013 [facility] [place] [facility] [address] [id number] [place] [address]- 2846 30 Jan, 2013 [facility] [address] [id number] [place] [address]- 9713 Jan, [facility] [place] [facility] [address] [id number] [place] [address]- 7587 Jan, [facility] [place] [facility] [address] [id number] [place] [address]- 2436 Jan, [facility] [address] [id number] [place] [address]- 1726 Jan, [facility] [place] [facility] [address] [id number] [place] [address]- 6139 Jan, [facility] [place] [facility] [address] [id number] [place] [address]- 0311 Jan, [facility] [place] [facility] [address] [id number] [place] [address]- 6686 Jan, [facility] [place] [facility] [address] [id number], [place] [address]- 0517 Dec, [facility] [place] [facility] [address] [id number] [place] [address]- 4378 Dec, [facility] [place] [facility] [address] [id number] [place] [address]- 5759 Apr, [facility] [place] [facility] [address] [id number] [place] [address]- 2241 Jan, [facility] [place] [facility] [address] [facility] [id number], [place] [address]- [address] Jan, [facility] [place] [facility] [address] [id number] [place] [address]- 8885 Dec, [facility] [place] [facility] [address] [facility] [id number], [place] [address]- 6685 Dec, [facility] [place] [facility] [address] [facility] [id number], [place] [address]- 5[address] Nov, [facility] [place] [facility] [address] [facility] [id number], [place] [address]- 9825 Nov, [facility] [place] [facility] [address] [facility] [id number], [place] [address]- 3591 Sep, [facility] [place] [facility] [address] [facility] [id number], [place] [address]- 2415 Sep, [facility] [place] [id number], [place] [id number] Sep, [facility] [place] [address] [id number], [place] [id number] Sep, [facility] [place] [facility] [address], [place] [address]- 99[address] Sep, [facility] [place] [facility] [address] [id number], [place] [address]- 3[address] Sep, [facility] [place] [address] [facility] [id number], [place] [id number] Aug, [facility] [place] [facility] [address] [facility] [id number], [place] [address]- [address] Aug, [facility] [place] [facility] [address] [facility] [id number], [place] [address]- 6495 Aug, [facility] [place] [facility] [address] [facility] [id number], [place] [address] Aug, [facility] [address] [facility] [id number][place] [id number] Jul, [facility] [place] [facility] [address] [facility] [id number], [place] [address] Jul, [facility] [place] [facility] [address] [id number] [place] [address] Jul, [facility] [place] [facility] [address] [id number], [place] [address] Jul, [facility] [place] [facility] [address] [facility] [id number] [place] [address] May, [facility] [place] [facility] [address] [id number], [place] [address] Feb, [facility] [place] [facility] [address] [id number] [place] [address] Jan, [facility] [place] [facility] [address] [facility] [id number], [place] [address] Jan, [facility] [place] [facility] [address] [facility] [id number], [place] [address] Dec, [facility] [place] [facility] [address] [id number], [place] [address] Dec, [facility] [place] [facility] [address] [facility] [id number], [place] [address] Dec, [facility] [place] [facility] [address] [facility] [id number], [place] [address] Nov, [facility] [place] [facility] [address] [facility] [id number], [place] [address] Nov, [facility] [place] [facility] [address] [id number], [place] [address] Sep, [facility] [place] [facility] [address] [id number], [place] [address] Jul, [facility] [place] [facility] [address] [facility] [id number], [place] [address] Mar, [facility] [place] [facility] [address] [facility] [id number], [place] [address] Nov, 2007 [facility] [place] [facility] [address] [facility] [id number] [place] [address] Nov, IMMUNIZATIONS No Known Immunizations SOCIAL HISTORY Never Assessed REASON FOR VISIT ER visit note PLAN OF CARE VITAL SIGNS MEDICATIONS Unknown Medications RESULTS No Results PROCEDURES No Known procedures INSTRUCTIONS MEDICATIONS ADMINISTERED No Known Medications MEDICAL (GENERAL) HISTORY Type Description Date Medical History Fibromyalgia Medical History Chronic Consipation Medical History 08/16/16 [facility] general surgery center, Dr. Jimenez, [...] Medical History MRI- Brain 05/29/2017 Medical History [place] Spotted Tick Fever Medical History Ebstein Feng Virus Surgical History hysterectomy, total with unilateral salpingo-oophorectomy ( USO) Surgical History cholecystectomy Surgical History tonsillectomy and adenoidectomy Surgical History hemorrhoidectomy Surgical History EGD Surgical History colonoscopy 08/25/16 Hospitalization History fever, HTN, abnormal head [facility] 05/28/17
--- OUTSIDE RECORDS SUMMARY | 2018-04-29 18:58 | XMS REPORT ---
Author Author BALA BIRD [facility] Address [address] [place] [address] Care Team Providers Care Cloth Designer Name Role Phone BALA BIRD Unavailable PROBLEMS Type Condition ICD9-CM Code QZX08-JN Code Onset Dates Condition Status SNOMED Code Problem Major depressive disorder, single episode, unspecified F32.9 Active 92103570 Problem Thyroid nodule E04.1 Active 74781135 Problem Severe single current episode of major depressive disorder, without psychotic features F32.2 Active 36216337 Problem Severe episode of recurrent major depressive disorder, without psychotic features F33.2 Active 745084907437 Problem Chronic tension-type headache, intractable G44.221 Active 031959094 Problem Constipation, chronic K59.09 Active 622971069 Problem Essential hypertension I10 Active 89370207 Problem Non morbid obesity due to excess calories E66.09 Active 205925281 Problem 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 Active 543456304 Problem RMSF (G[place] Rose spotted fever) A77.0 Active 516619647 Problem Abnormal brain MRI R90.89 Active 481261056 Problem Abnormal mammogram of left breast R92.8 Active 972875515 Problem Diarrhea, unspecified type R19.7 Active 43913056 Problem Controlled substance agreement signed Z79.899 Active 810328161 Problem Other chronic pain G89.29 Active 136014400 Problem Scoliosis of thoracolumbar spine, unspecified scoliosis type M41.9 Active 437007262 Problem 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 Active 438773368 Problem Recurrent fever A68.9 Active 951108755 Problem Epigastric abdominal pain R10.13 Active 75580473 Problem Abnormal mammogram R92.8 Active 288941619 Problem Pain in thoracic spine M54.6 Active 634947236805165 Problem Cervicalgia M54.2 Active 1587029635650 Problem Radicular low back pain M54.10 Active 55264221 Problem Muscle spasm M62.838 Active 85134517 Problem Other chronic pain G89.29 Active 471848430 Problem Fibromyalgia M79.7 Active 852707218 Problem Anxiety F41.9 Active 345490761 Problem Acute bilateral low back pain with sciatica, sciatica laterality unspecified M54.40 Active 382634362 ALLERGIES No Information ENCOUNTERS Encounter Location Date Diagnosis [facility] [address] [address] Oct, [facility] [address] [id number] [id number] Sep, [facility] [address] [address] Sep, [facility] [address] [id number][place] [id number] Sep, [facility] [address] [address] Sep, Fibromyalgia M79.7 [facility] [address] [id number][place] [id number] Sep, Epigastric abdominal pain R10.13 and Diarrhea, unspecified type R19.7 [facility] [id number] [place] [address] [id number] Sep, Abnormal mammogram of left breast R92.8 [facility] [address] [id number] AFB[place] [id number] Sep, Abnormal mammogram R92.8 [facility] [address] [id number] AF[place] [id number] Sep, [facility] [address] [id number] AFB[place] [id number] Aug, Abnormal mammogram R92.8 [facility] [id number] [place] [address] [id number] Aug, [facility] [address] [id number] AFB[place] [id number] Aug, [facility] [address] [id number] [place] [address] [id number] Aug, Screening breast examination Z12.31 and At risk for bone density loss Z91.89 [facility] [place] [address] [id number] AFB[place] [id number] Aug, [facility] [place] [address] [id number] [place] [address] Aug, [facility] [place] [address] [id number] AFB[place] [id number] Aug, Other chronic pain G89.29 [facility] [place] [address] [id number] [place] [address] [id number] Aug, [facility] [place] [address] [id number] AFB[place] 45[address] Aug, [facility] [place] [address] [id number] [place] [address] [id number] Aug, [facility] [address] [id number] [place] [address] [id number] Aug, Fibromyalgia M79.7 ; Anxiety F41.9 ; High risk medication use Z79.899 ; Other chronic pain G89.29 ; Recurrent fever A68.9 ; 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 and RMSF (G[place] Rose spotted fever) A77.0 [facility] [place] [address] [id number] [place] [address] [id number] Jul, [facility] [address] [id number] [place] [address] [id number] Jul, [facility] [address] [id number] AF[place] [address] Jul, Muscle spasm M62.838 and Anxiety F41.9 [facility] [address] [id number] AFB[place] 680[place]2365 Jul, [facility] [place] [address] [id number] AFB[place] [id number] Jul, [facility] [place] [address] [id number] AFB[place] [id number] Jul, [facility] [place] [address] [id number], [place] [id number] Jul, [facility] [place] [id number] AFB[place] [id number] Jul, [facility] [place] [address] [id number] [place] 40388[address] Jul, [facility] [place] [address] [id number] [place] [id number] Jul, [facility] [place] [address] [id number] [place] [id number] Jul, [facility] [place] [address] [id number] [place] [id number] Jul, [facility] [place] [address] [id number] [place] 278973975 Jul, [facility] [place] [address] [id number] [place] [id number] Jul, Radicular low back pain M54.10 ; Other chronic pain G89.29 and Fibromyalgia M79.7 [facility] [place] [address] [id number] [place] [id number] Jul, [facility] [place] [address] [id number] AFB[place] [id number] Jul, [facility] [place] [address] [id number] AFB[place] [id number] Jul, [facility] [place] [address] [id number] AFB[place] [id number] June, [facility] [place] [address] [id number] AFB[place] [id number] June, [facility] [place] [address] [id number] AFB[place] [id number] June, 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 ; Recurrent fever A68.9 ; Other chronic pain G89.29 ; Radicular low back pain M54.10 ; Chronic tension- type headache, intractable G44.221 ; Essential hypertension I10 ; RMSF (G[place] Rose spotted fever) A77.0 and Abnormal brain MRI R90.89 [facility] [place] [address] [id number] AFB[place] [id number] June, [address] [id number][place] [address]64[address] June, 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 and RMSF (G[place] Rose spotted fever) A77.0 [facility] [place] [address] [id number] [place] [id number] June, [facility] [place] [address] [id number] [place] [id number] June, [facility] [place] [address] [id number] [place] [id number] June, RMSF (G[place] Rose spotted fever) A77.0 and 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 [facility] [place] [address] [id number] [place] [id number] June, [facility] [place] [address] [id number] [place] [id number] June, [facility] [place] [address] [id number] [place] [id number] June, [facility] [id number] [place] [address] June, [facility] [place] [id number] [place] [address] [id number] June, [facility] [id number] [place] [address] June, Radicular low back pain M54.10 and Scoliosis of thoracolumbar spine, unspecified scoliosis type M41.9 [facility] [place] [address] [id number] [place] [address] [id number] June, [facility] [place] [address] [id number] [place] [address] [id number] June, [facility] [place] [address] [id number] [place] [address] [id number] June, [facility] [place] [address] [id number] [place] [address] [id number] June, [facility] [place] [address] [id number] [place] [id number] June, RMSF (G[place] Rose spotted fever) A77.0 [facility] [place] [address] [id number] [place] [address] [id number] June, [facility] [place] [id number] AFB[place] 650772600 June, Muscle spasm M62.838 [facility] [place] [id number] [place] [address] [id number] June, [facility] [place] [id number] AF[place] [id number] May, [facility] [place] [id number] [place] [address] [id number] May, [facility] [place] [address] [id number] [id number] May, [facility] [address] [id number][place] [id number] May, RMSF (G[place] Rose spotted fever) A77.0 [facility] [id number][place] [id number] May, Essential hypertension I10 [facility] [address] [id number] [address] May, [facility] [id number] AFB[place] [id number] May, Other chronic pain G89.29 [facility] [place] [id number] [place] [address] [id number] May, [facility] [id number] [place] [address] [id number] May, [facility] [id number] [place] [address] [id number] May, [facility] [id number] AFB[place] 005831214 May, [facility] [id number] AFB[place] [id number] May, RMSF (G[place] Rose spotted fever) A77.0 ; Nausea R11.0 ; [...] F32.9 [facility] [address] [facility] [id number] [address] May, [place] Rose spotted fever A77.0 [facility] [place] [address] [id number] [place] [id number] May, [facility] [place] [address] [id number] [place] [id number] May, [facility] [address] [id number] [address] May, [facility] [place] [address] [id number] [place] [id number] May, [facility] [place] [address] [id number] [place] 958423698 May, [facility] [place] [address] [id number] [place] [id number] May, [facility] [place] [address] [id number] [place] [id number] May, [facility] [place] [address] [id number] [place] [id number] May, [facility] [place] [address] [id number] [place] [id number] May, [facility] [place] [address] [id number] [place] [id number] May, [facility] [place] [address] [id number] [place] [id number] May, [facility] [place] [address] [id number] [place] [id number] May, [facility] [place] [address] [id number] [place] [id number] May, [facility] [place] [address] [id number] [place] [id number] May, [facility] [place] [address] [id number] [place] [id number] May, [facility] [place] [address] [id number] AFB[place] [id number] May, [facility] [address] [facility] [id number] AFB[place] [id number] May, Radicular low back pain M54.10 ; Other chronic pain G89.29 ; Fibromyalgia M79.7 ; Cervicalgia M54.2 ; Pain in thoracic spine M54.6 and Scoliosis of thoracolumbar spine, unspecified scoliosis type M41.[address] [id number][place] [id number] May, [facility] [address] [facility] [id number] AFB[place] [id number] Apr, Muscle spasm M62.838 [place] [id number] [place] [address] [id number] Apr, [place] [address] [id number] AFB[place] [id number] Apr, Fibromyalgia M79.7 ; Muscle spasm M62.838 ; Other chronic pain G89.29 ; Vision changes H53.9 ; Headache above the eye region R51 ; Major depressive disorder, single episode, unspecified F32.9 ; Neck pain M54.2 and Thyroid nodule E04.1 [place] [address] [id number] [place] [address] [id number] Apr, Other chronic pain G89.29 [place] [address] [id number] AFB[place] [id number] Apr, Chronic tension-type headache, intractable G44.221 [place] [address] [id number] AFB[place] [id number] Mar, Other chronic pain G89.29 ; Scoliosis of thoracolumbar spine, unspecified scoliosis type M41.9 ; Muscle spasm M62.838 ; Other chronic pain G89.29 ; Headache above the eye region R51 ; Hospital discharge follow-up Z09 ; Lumbar back pain with radiculopathy affecting right lower extremity M54.17 ; Lumbar back pain with radiculopathy affecting left lower extremity M54.17 and Myalgia M79.1 [place] [id number] AFB[place] [id number] 16 Mar, 2017 [facility] [id number] [place] [address] [id number] Mar, Other chronic pain G89.29 [place] [id number] [place] [address] [id number] 14 Mar, 2017 Radicular low back pain M54.10 [facility] [id number] [place] [address] [id number] Feb, [facility] [id number] [place] [address] [id number] Feb, [facility] [id number] [place] [address] [id number] Feb, Muscle spasm M62.838 [place] [id number] [place] [address] [id number] Feb, Itching L29.9 and Acute bilateral back pain, unspecified back location M54.9 [place] [id number] [place] [address] [id number] Feb, History of pneumonia Z87.01 ; Cough R05 ; Radicular low back pain M54.10 ; Scoliosis of thoracolumbar spine, unspecified scoliosis type M41.9 ; Elevated liver enzymes R74.8 ; Influenza J11.1 ; Severe single current episode of major depressive disorder, without psychotic features F32.2 and Stressful life events affecting family and household Z63.79 [address] [id number] [place] [address] [id number] Jan, Muscle spasm M62.838 [place] [id number] [place] [address] [id number] Jan, Post-nasal drainage R09.82 ; Anxiety F41.9 and Cough R05 [place] [id number] [place] [address] [id number] Jan, Severe episode of recurrent major depressive disorder, without psychotic features F33.2 [place] [id number] [place] [address] [id number] Jan, Muscle spasm M62.838 [place] [id number] [place] [address] [id number] Jan, Acute recurrent maxillary sinusitis J01.01 and Breast tenderness in female N64.4 [place] [id number] [place] [address] [id number] Nov, [place] [id number] [place] [address] [id number] Nov, [place] [id number] [place] [address] [id number] Nov, Radicular low back pain M54.10 and Muscle spasm M62.838 [address] [id number] [place] [address] [id number] Nov, [address] [id number] Nov, Viral disease B34.9 ; Fever, unspecified fever cause R50.9 ; Other fatigue R53.83 and Other malaise R53.81 [place] [id number] [place] [address] [id number] Nov, Thyroid nodule E04.1 [place] [id number] [place] [address] [id number] Nov, Severe episode of recurrent major depressive disorder, without psychotic features F33.2 [place] [id number] [place] [address] [id number] Nov, Acute nasopharyngitis J00 [place] [id number] [place] [address] [id number] Oct, Scoliosis of thoracolumbar spine, unspecified scoliosis type M41.9 ; Muscle spasm M62.838 ; Thyroid nodule E04.1 ; Pain in thoracic spine M54.6 ; Other chronic pain G89.29 ; Cervicalgia M54.2 ; Radicular low back pain M54.10 ; Severe episode of recurrent major depressive disorder, without psychotic features F33.2 and High risk medication use Z79.899 [facility] [address] 522[address]- [address] Oct, [place] [id number] [place] [address] [id number] Sep, Scoliosis of thoracolumbar spine, unspecified scoliosis type M41.9 ; Muscle spasm M62.838 ; Thyroid nodule E04.1 ; Pain in thoracic spine M54.6 ; Other chronic pain G89.29 ; Cervicalgia M54.2 ; Controlled substance agreement signed Z79.899 ; Vaginal yeast infection B37.3 and Radicular low back pain M54.10 [facility] [id number] [place] [address] [id number] Sep, Scoliosis of thoracolumbar spine, unspecified scoliosis type M41.9 and Muscle spasm M62.838 [facility] [id number] [place] [address] [id number] Sep, Severe episode of recurrent major depressive disorder, without psychotic features F33.2 [facility] [id number] [place] [address] [id number] Aug, Severe episode of recurrent major depressive disorder, without psychotic features F33.2 ; Thyroid nodule E04.1 ; Constipation, chronic K59.09 and Non morbid obesity due to excess calories E66.09 [facility] [id number] [place] [address] [id number] Aug, Non morbid obesity due to excess calories E66.09 and Thyroid nodule E04.1 [facility] [id number] [place] [address] [id number] Aug, [place] [id number] [place] [address] [id number] Jul, Severe episode of recurrent major depressive disorder, without psychotic features F33.2 ; Thyroid nodule E04.1 ; Constipation, chronic K59.09 and Non morbid obesity due to excess calories E66.09 [facility] [id number] [place] [address] [id number] June, Sore throat J02.9 and Major depressive disorder, single episode, unspecified F32.9 [facility] [id number] [place] [address] [id number]- 5876 May, [facility] [address] [address]- [address] May, [facility] [address] [id number] [place] [address]- 6[address] 14 Mar, 2013 [facility] [place] [facility] [address] [id number] [place] [address]- 5246 14 Mar, 2013 [facility] [place] [facility] [address] [id number] [place] [address]- 8149 Mar, [facility] [place] [facility] [address] [id number] [place] [address]- 0802 Mar, [facility] [address] [id number] [place] [address]- 0685 Jan, [facility] [place] [facility] [address] [id number] [place] [address]- 8409 Jan, [facility] [address] [id number] [place] [address]- 4175 Jan, [facility] [place] [facility] [address] [id number] [place] [address]- 4116 Jan, [facility] [place] [facility] [address] [id number] [place] [address]- 4869 Jan, [facility] [place] [facility] [address] [id number] [place] [address]- 6109 Jan, [facility] [place] [facility] [address] [id number] [place] [address]- 6524 Jan, [facility] [place] [facility] [address] [id number] [address]- 1382 Jan, [facility] [place] [facility] [address] [id number] [place] [address]- 5617 Dec, [facility] [place] [facility] [address] [id number] [place] [address]- 6503 Dec, [facility] [place] [facility] [address] [id number] [place] [address]- 6470 Apr, [facility] [place] [facility] [address] [facility] [id number] [place] [address]- 2821 Jan, [facility] [place] [facility] [address] [facility] [id number] [place] [address]- 6534 Jan, [facility] [place] [facility] [address] [facility] [id number] [place] [address]- 3709 Dec, [facility] [place] [facility] [address] [facility] [id number] [place] [address]- 4423 Dec, [facility] [place] [facility] [address] [facility] [id number] [place] [address]- 6646 Nov, [facility] [place] [facility] [address] [facility] [id number] [place] 47[address] Nov, [facility] [place] [facility] [address] [facility] [id number] [place] [address]- 1869 Sep, [facility] [place] [facility] [address] [facility] [id number] [address] Sep, [facility] [id number] [place] [id number] Sep, [facility] [address] [id number] [place] [id number] Sep, [facility] [place] [facility] [address] [id number], [place] [address] Sep, [facility] [place] [facility] [address] [facility] [id number] [address] Sep, [facility] [address] [facility] [id number] [place] [id number] Aug, [facility] [place] [facility] [address] [facility] [id number] [address] Aug, [facility] [place] [facility] [address] [facility] [id number], [place] [address] Aug, [facility] [place] [facility] [address] [facility] [id number], [place] [address] Aug, [facility] [address] [id number] [place] [id number] Jul, [facility] [place] [facility] [address] [facility] [id number], [place] [address] Jul, [facility] [place] [facility] [address] [facility] [id number][place] [address] Jul, [facility] [place] [facility] [address] [facility] [id number] [address] Jul, [facility] [place] [facility] [address] [facility] [id number], [place] [address] May, [facility] [place] [facility] [address] [facility] [id number], [place] [address] Feb, [facility] [place] [facility] [address] [facility] [id number][place] [address] Jan, [facility] [place] [facility] [address] [facility] [id number] [address] Jan, [facility] [place] [facility] [address] [facility] [id number], [place] [address] Dec, [facility] [place] [facility] [address] [facility] [id number], [place] [address] Dec, [facility] [place] [facility] [address] [facility] [id number], [place] [address] Dec, [facility] [place] [facility] [address] [facility] [id number], [place] [address] Nov, [facility] [place] [facility] [address] [facility] [id number], [place] [address] Nov, [facility] [place] [facility] [address] [facility] [id number] [address] Sep, [facility] [place] [facility] [address] [facility] [id number][place] [address] Jul, [facility] [place] [facility] [address] [facility] [id number] [address] Mar, [facility] [place] [facility] [address] [facility] [place] [id number] [place] [address] Nov, [facility] [address] [facility] [place] [id number] [place] [address] Nov, IMMUNIZATIONS No Known Immunizations SOCIAL HISTORY Never Assessed REASON FOR VISIT C Diff PLAN OF CARE VITAL SIGNS MEDICATIONS Unknown [...] Medical History MRI- Brain 05/29/2017 Medical History [place] Spotted Tick Fever Medical History Ebstein Feng Virus Surgical History hysterectomy, total with unilateral salpingo-oophorectomy ( USO) Surgical History cholecystectomy Surgical History tonsillectomy and adenoidectomy Surgical History hemorrhoidectomy Surgical History EGD Surgical History colonoscopy 08/25/16 Hospitalization History fever, HTN, abnormal head [facility] 05/28/17
--- OUTSIDE RECORDS SUMMARY | 2018-04-29 18:59 | XMS REPORT ---
Author Author [facility]IRD [facility] Address [address] [place] [address] Care Team Providers Care Design Analyst Name Role Phone BALA BIRD Unavailable PROBLEMS Type Condition ICD9-CM Code AUD50-CL Code Onset Dates Condition Status SNOMED Code Problem Major depressive disorder, single episode, unspecified F32.9 Active 39908154 Problem Thyroid nodule E04.1 Active 43529883 Problem Severe single current episode of major depressive disorder, without psychotic features F32.2 Active 92242671 Problem Severe episode of recurrent major depressive disorder, without psychotic features F33.2 Active 857585981610 Problem Chronic tension-type headache, intractable G44.221 Active 215351167 Problem Constipation, chronic K59.09 Active 189092840 Problem Essential hypertension I10 Active 82884135 Problem Non morbid obesity due to excess calories E66.09 Active 626704462 Problem 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 Active 397173296 Problem RMSF (Eleva spotted fever) A77.0 Active 415975960 Problem Abnormal brain MRI R90.89 Active 261429329 Problem Abnormal mammogram of left breast R92.8 Active 685737477 Problem Diarrhea, unspecified type R19.7 Active 58603769 Problem Controlled substance agreement signed Z79.899 Active 437003659 Problem Other chronic pain G89.29 Active 473205436 Problem Scoliosis of thoracolumbar spine, unspecified scoliosis type M41.9 Active 726009334 Problem 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 Active 399502128 Problem Recurrent fever A68.9 Active 658739427 Problem Epigastric abdominal pain R10.13 Active 27763765 Problem Abnormal mammogram R92.8 Active 228292977 Problem Pain in thoracic spine M54.6 Active 227381206681583 Problem Cervicalgia M54.2 Active 7893399917391 Problem Radicular low back pain M54.10 Active 72714375 Problem Muscle spasm M62.838 Active 99810592 Problem Other chronic pain G89.29 Active 555963044 Problem Fibromyalgia M79.7 Active 407471978 Problem Anxiety F41.9 Active 644972702 Problem Acute bilateral low back pain with sciatica, sciatica laterality unspecified M54.40 Active 294636957 ALLERGIES No Information ENCOUNTERS Encounter Location Date Diagnosis [facility] [address] [id number] [place] [id number] Sep, [facility] [address] [address] Sep, [facility] [address] [id number] [place] [id number] Sep, [facility] [address] [address] Sep, Fibromyalgia M79.7 [facility] [address] [id number] [place] [address] Sep, Epigastric abdominal pain R10.13 and Diarrhea, unspecified type R19.7 [facility] [id number] [place] [address] [id number] Sep, Abnormal mammogram of left breast R92.8 [facility] [id number] [place] [address] [id number] Sep, Abnormal mammogram R92.8 [facility] [place] [id number] [place] [id number] Sep, [facility] [place] [address] [id number] [place] [address] [id number] Aug, Abnormal mammogram R92.8 [facility] [place] [address] [id number] [place] [id number] Aug, [facility] [place] [address] [id number] [place] [address] [id number] Aug, [facility] [address] [id number] [place] [address] [id number] Aug, Screening breast examination Z12.31 and At risk for bone density loss Z91.89 [facility] [id number] [place] [address] [id number] Aug, [facility] [place] [address] [id number] [place] [address] Aug, [facility] [place] [address] [id number] [place] [address] Aug, Other chronic pain G89.29 [facility] [place] [address] [id number] [place] [id number] Aug, [facility] [place] [address] [id number] [place] [address] Aug, [facility] [place] [address] [id number] [place] [address] Aug, [facility] [place] [address] [id number] [place] [address] Aug, Fibromyalgia M79.7 ; Anxiety F41.9 ; High risk medication use Z79.899 ; Other chronic pain G89.29 ; Recurrent fever A68.9 ; 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 and RMSF (Eleva spotted fever) A77.0 [facility] [place] [address] [id number] [place] [address]83[address] Jul, [facility] [place] [address] [id number] [place] [address]604[address] Jul, [facility] [place] [address] [id number] [place] [address]48[address]68 Jul, Muscle spasm M62.838 and Anxiety F41.9 [facility] [place] [address] [id number] [place] [address]857[place] Jul, [facility] [place] [address] [id number] [place] 57754[address]93 Jul, [facility] [place] [address] [id number] [place] 564[address]27 Jul, [facility] [address] [id number] [place] [address] Jul, [facility] [place] [address] [id number] [place] 102289509 Jul, [facility] [place] [address] [id number] [place] 040427[address] Jul, [facility] [place] [address] [id number] [place] 582836286 Jul, [facility] [place] [address] [id number] [place] [id number] Jul, [facility] [place] [address] [id number] [place] 025966544 Jul, [facility] [place] [address] [id number] [place] 937391763 Jul, [facility] [place] [address] [id number] [place] [address] [id number] Jul, Radicular low back pain M54.10 ; Other chronic pain G89.29 and Fibromyalgia M79.7 [facility] [place] [address] [id number] [place] [address] [id number] Jul, [facility] [place] [address] [id number] [place] [address] [id number] Jul, [facility] [place] [address] [id number] [place] 454156364 Jul, [facility] [place] [id number] [place] [address] [id number] June, [facility] [place] [address] [id number] [place] [id number] June, [facility] [place] [address] [id number] [place] [address] [id number] June, 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 ; Recurrent fever A68.9 ; Other chronic pain G89.29 ; Radicular low back pain M54.10 ; Chronic tension- type headache, intractable G44.221 ; Essential hypertension I10 ; RMSF (Eleva spotted fever) A77.0 and Abnormal brain MRI R90.89 [facility] [address] [id number] [place] [id number] June, [address] [address] June, 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 and RMSF (Eleva spotted fever) A77.0 [facility] [address] [id number] [place] [id number] June, [facility] [place] [id number] [place] [id number] June, [facility] [place] [id number] [place] [address] [id number] June, RMSF (Eleva spotted fever) A77.0 and 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 [facility] [place] [id number] [place] [id number] June, [facility] [place] [id number] [place] [address] [id number] June, [facility] [place] [id number] [place] [address] [id number] June, [facility] [id number] [place] [address] June, [facility] [place] [id number] [place] [address] [id number] June, [facility] [id number] [place] [address]42 June, Radicular low back pain M54.10 and Scoliosis of thoracolumbar spine, unspecified scoliosis type M41.9 [facility] [place] [id number] [place] [id number] June, [facility] [place] [id number] [place] [id number] June, [facility] [place] [id number] [place] [id number] June, [facility] [place] [id number] [place] [id number] June, [facility] [place] [id number] [place] [address]804[address]56 June, RMSF (Eleva spotted fever) A77.0 [facility] [place] [id number] [place] [address] [id number] June, [facility] [place] [id number] [place] [id number] June, Muscle spasm M62.838 [facility] [place] [id number] [place] 580547150 June, [facility] [place] [id number] [place] [address] [id number] May, [facility] [place] [id number] [place] [id number] May, [facility] [place] [id number] [place] [id number] May, [facility] [address] [facility] [address] [id number] [place] 554[address]8974 May, RMSF (Eleva spotted fever) A77.0 [facility] [id number] [place] [address] [id number] May, Essential hypertension I10 [facility] [address], [place] [address] May, [facility] [id number] [place] [address] [id number] May, Other chronic pain G89.29 [facility] [id number] [place] [address] [id number] May, [facility] [id number] [place] [address] [id number] May, [facility] [place] [id number] [place] [id number] May, [facility] [id number] [place] [id number] May, [facility] [id number] [place] [address] [id number] May, RMSF (Eleva spotted fever) A77.0 ; Nausea R11.0 ; [...] depressive disorder, single episode, unspecified F32.9 [facility] [address] [id number] [place] [address]- [address] May, Eleva spotted fever A77.0 [facility] [place] [address] [id number] [place] [id number] May, [facility] [place] [address] [id number] [place] [id number] May, [facility] [address] [id number] [place] [address] May, [facility] [place] [address] [id number] [place] [id number] May, [facility] [place] [address] [id number] [place] [id number] May, [facility] [place] [address] [id number] [place] [id number] May, [facility] [place] [address] [id number] [place] 937169060 May, [facility] [place] [address] [id number] [place] [id number] May, [facility] [place] [address] [id number] [place] [id number] May, [facility] [place] [address] [id number] [place] [id number] May, [facility] [place] [address] [id number] [place] [id number] May, [facility] [place] [address] [id number] [place] 473576438 May, [facility] [place] [address] [id number] [place] 365093697 May, [facility] [place] [address] [id number] [place] [id number] May, [facility] [place] [address] [id number] [place] [id number] May, [facility] [place] [address] [id number] [place] 376051374 May, [facility] [place] [address] [id number] [place] 503217329 May, Radicular low back pain M54.10 ; Other chronic pain G89.29 ; Fibromyalgia M79.7 ; Cervicalgia M54.2 ; Pain in thoracic spine M54.6 and Scoliosis of thoracolumbar spine, unspecified scoliosis type M41.9 [place] [address] [facility] [id number] [place] [id number] May, [facility] [address] [id number] [place] 517092346 Apr, Muscle spasm M62.838 [address] [address] [facility] [id number] [place] 530369629 Apr, [address] [place] [address] [id number] Apr, Fibromyalgia M79.7 ; Muscle spasm M62.838 ; Other chronic pain G89.29 ; Vision changes H53.9 ; Headache above the eye region R51 ; Major depressive disorder, single episode, unspecified F32.9 ; Neck pain M54.2 and Thyroid nodule E04.1 [place] [address] [address] [facility] [id number] [place] 450365574 Apr, Other chronic pain G89.29 [address] [place] [address] [id number] Apr, Chronic tension-type headache, intractable G44.221 [address] [place] [address] [id number] Mar, Other chronic pain G89.29 ; Scoliosis of thoracolumbar spine, unspecified scoliosis type M41.9 ; Muscle spasm M62.838 ; Other chronic pain G89.29 ; Headache above the eye region R51 ; Hospital discharge follow-up Z09 ; Lumbar back pain with radiculopathy affecting right lower extremity M54.17 ; Lumbar back pain with radiculopathy affecting left lower extremity M54.17 and Myalgia M79.1 [place] [address] [id number] [place] [id number] Mar, [address] [place] [address] [id number] Mar, Other chronic pain G89.29 [facility] [id number] [place] [id number] 14 Mar, 2017 Radicular low back pain M54.10 [facility] [id number] [place] [address] [id number] Feb, [facility] [id number] [place] [address] [id number] Feb, [facility] [id number] [place] [address] [id number] Feb, Muscle spasm M62.838 [place] [id number] [place] [address] [id number] Feb, Itching L29.9 and Acute bilateral back pain, unspecified back location M54.9 [place] [id number] [place] [address] [id number] Feb, History of pneumonia Z87.01 ; Cough R05 ; Radicular low back pain M54.10 ; Scoliosis of thoracolumbar spine, unspecified scoliosis type M41.9 ; Elevated liver enzymes R74.8 ; Influenza J11.1 ; Severe single current episode of major depressive disorder, without psychotic features F32.2 and Stressful life events affecting family and household Z63.79 [place] [id number] [place] [address] [id number] Jan, Muscle spasm M62.838 [place] [id number] [place] [address] [id number] Jan, Post-nasal drainage R09.82 ; Anxiety F41.9 and Cough R05 [place] [id number] [place] [address] [id number] 15 Jan, 2017 Severe episode of recurrent major depressive disorder, without psychotic features F33.2 [place] [id number] [place] [address] [id number] Jan, Muscle spasm M62.838 [place] [id number] [place] [address] [id number] 08 Jan, 2017 Acute recurrent maxillary sinusitis J01.01 and Breast tenderness in female N64.4 [place] [id number] [place] [id number] Nov, [address] [place] [address] [id number] Nov, [address] [place] [address] [id number] Nov, Radicular low back pain M54.10 and Muscle spasm M62.838 [id number] [place] [address] [id number] Nov, [address] [id number] [place] [address] [id number] Nov, Viral disease B34.9 ; Fever, unspecified fever cause R50.9 ; Other fatigue R53.83 and Other malaise R53.[address] [place] [address] [id number] Nov, Thyroid nodule E04.1 [address] [address] [id number] [place] [address] [id number] Nov, Severe episode of recurrent major depressive disorder, without psychotic features F33.2 [address] [place] [address] [id number] Nov, Acute nasopharyngitis J00 [address] [place] [address] [id number] Oct, Scoliosis of thoracolumbar spine, unspecified scoliosis type M41.9 ; Muscle spasm M62.838 ; Thyroid nodule E04.1 ; Pain in thoracic spine M54.6 ; Other chronic pain G89.29 ; Cervicalgia M54.2 ; Radicular low back pain M54.10 ; Severe episode of recurrent major depressive disorder, without psychotic features F33.2 and High risk medication use Z79.899 [facility] [address]00565100[place], [place] 4249[address]38- [address] Oct, [address]005[address]100[place] 054256571 Sep, Scoliosis of thoracolumbar spine, unspecified scoliosis type M41.9 ; Muscle spasm M62.838 ; Thyroid nodule E04.1 ; Pain in thoracic spine M54.6 ; Other chronic pain G89.29 ; Cervicalgia M54.2 ; Controlled substance agreement signed Z79.899 ; Vaginal yeast infection B37.3 and Radicular low back pain M54.10 [place] [id number] [place] [address] [id number] Sep, Scoliosis of thoracolumbar spine, unspecified scoliosis type M41.9 and Muscle spasm M62.838 [id number] [place] [address] [id number] Sep, Severe episode of recurrent major depressive disorder, without psychotic features F33.2 [address] [id number] [place] [address] [id number] Aug, Severe episode of recurrent major depressive disorder, without psychotic features F33.2 ; Thyroid nodule E04.1 ; Constipation, chronic K59.09 and Non morbid obesity due to excess calories E66.09 [address] [id number] [place] [address] [id number] Aug, Non morbid obesity due to excess calories E66.09 and Thyroid nodule E04.1 [address] [id number] [place] [address] [id number] Aug, [address] [id number] Jul, Severe episode of recurrent major depressive disorder, without psychotic features F33.2 ; Thyroid nodule E04.1 ; Constipation, chronic K59.09 and Non morbid obesity due to excess calories E66.09 [address] [id number] [place] [address] [id number] June, Sore throat J02.9 and Major depressive disorder, single episode, unspecified F32.9 [facility] [address] [address]- [address] May, [facility] [address] [address]- [address] May, [facility] [address] [address]- [address] Mar, [facility] [address] [id number] [place] [address]- 7[address] 14 Mar, 2013 [facility] [place] [facility] [address] [id number] [place] [address]- 7196 06 Mar, 2013 [facility] [address] [id number] [place] [address]- 8916 06 Mar, 2013 [facility] [place] [facility] [address] [id number] [place] [address]- 8057 30 Jan, 2013 [facility] [address] [id number] [place] [address]- 7537 Jan, [facility] [place] [facility] [address] [id number] [place] [address]- 3924 Jan, [facility] [place] [facility] [address] [id number] [place] [address]- 7996 Jan, [facility] [address] [id number] [place] [address]- 4537 Jan, [facility] [place] [facility] [address] [id number] [place] [address]- 0126 Jan, [facility] [place] [facility] [address] [id number] [place] [address]- 5205 Jan, [facility] [place] [facility] [address] [id number] [place] [address]- 9925 Jan, [facility] [place] [facility] [address] [id number], [place] [address]- 29[address] Dec, [facility] [place] [facility] [address] [id number] [place] [address]- 5483 Dec, [facility] [place] [facility] [address] [id number] [place] [address]- 4200 Apr, [facility] [place] [facility] [address] [id number] [place] [address]- 9071 Jan, [facility] [place] [facility] [address] [facility] [id number], [place] [address]- 9[address] Jan, [facility] [place] [facility] [address] [id number] [place] [address]- 4194 Dec, [facility] [place] [facility] [address] [facility] [id number], [place] [address]- 5[address] Dec, [facility] [place] [facility] [address] [facility] [id number], [place] [address]- 47[address] Nov, [facility] [place] [facility] [address] [facility] [id number], [place] [address]- 99[address] Nov, [facility] [place] [facility] [address] [facility] [id number], [place] [address]- 7732 Sep, [facility] [place] [facility] [address] [facility] [id number], [place] [address]- 3[address] Sep, [facility] [place] [id number] [place] [id number] Sep, [facility] [place] [address] [id number] [place] [id number] Sep, [facility] [place] [facility] [address], [place] [address]- 7[address] Sep, [facility] [place] [facility] [address] [id number], [place] [address]- 40[address] Sep, [facility] [place] [address] [facility] [id number] [place] [id number] Aug, [facility] [place] [facility] [address] [facility] [id number], [place] [address]- 0[address] Aug, [facility] [place] [facility] [address] [facility] [id number], [place] [address]- 6854 Aug, [facility] [place] [facility] [address] [facility] [id number], [place] [address] Aug, [facility] [address] [facility] [id number] [id number] Jul, [facility] [place] [facility] [address] [facility] [id number], [place] [address] Jul, [facility] [place] [facility] [address] [id number] [place] [address] Jul, [facility] [place] [facility] [address] [id number], [place] [address] Jul, [facility] [place] [facility] [address] [facility] [id number] [place] [address] May, [facility] [place] [facility] [address] [id number], [place] [address] Feb, [facility] [place] [facility] [address] [id number] [place] [address] Jan, [facility] [place] [facility] [address] [facility] [id number], [place] [address] Jan, [facility] [place] [facility] [address] [facility] [id number], [place] [address] Dec, [facility] [place] [facility] [address] [id number], [place] [address] Dec, [facility] [place] [facility] [address] [facility] [id number], [place] [address] Dec, [facility] [place] [facility] [address] [facility] [id number], [place] [address] Nov, [facility] [place] [facility] [address] [facility] [id number], [place] [address] Nov, [facility] [place] [facility] [address] [id number], [place] [address] Sep, [facility] [place] [facility] [address] [id number], [place] [address] Jul, [facility] [place] [facility] [address] [facility] [id number], [place] [address] Mar, [facility] [place] [facility] [address] [facility] [id number], [place] [address] 30 Nov, 2007 [facility] [place] [facility] [address] [facility] [id number] [place] [address] Nov, IMMUNIZATIONS No Known Immunizations SOCIAL HISTORY Never Assessed REASON FOR VISIT PLAN OF CARE VITAL [...] Medical History MRI- Brain 05/29/2017 Medical History Eleva Spotted Tick Fever Medical History Ebstein Feng Virus Surgical History hysterectomy, total with unilateral salpingo-oophorectomy ( USO) Surgical History cholecystectomy Surgical History tonsillectomy and adenoidectomy Surgical History hemorrhoidectomy Surgical History EGD Surgical History colonoscopy 08/25/16 Hospitalization History fever, HTN, abnormal head [facility] 05/28/17
--- OUTSIDE RECORDS SUMMARY | 2018-04-29 18:59 | XMS REPORT ---
Author Author [facility] BIRD [facility] Address [address] [place] [address] Care Team Providers Care Special Officer Name Role Phone BALA BIRD Unavailable PROBLEMS Type Condition ICD9-CM Code NGF19-TG Code Onset Dates Condition Status SNOMED Code Problem Major depressive disorder, single episode, unspecified F32.9 Active 55758949 Problem Thyroid nodule E04.1 Active 70018799 Problem Severe single current episode of major depressive disorder, without psychotic features F32.2 Active 47089883 Problem Severe episode of recurrent major depressive disorder, without psychotic features F33.2 Active 855157039664 Problem Chronic tension-type headache, intractable G44.221 Active 204623887 Problem Constipation, chronic K59.09 Active 390901569 Problem Essential hypertension I10 Active 05968004 Problem Non morbid obesity due to excess calories E66.09 Active 124201766 Problem 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 Active 259331029 Problem RMSF ([place] spotted fever) A77.0 Active 690198766 Problem Abnormal brain MRI R90.89 Active 897360504 Problem Abnormal mammogram of left breast R92.8 Active 291406153 Problem Diarrhea, unspecified type R19.7 Active 16865287 Problem Controlled substance agreement signed Z79.899 Active 732318654 Problem Other chronic pain G89.29 Active 773581237 Problem Scoliosis of thoracolumbar spine, unspecified scoliosis type M41.9 Active 726863097 Problem 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 Active 131968339 Problem Recurrent fever A68.9 Active 173150094 Problem Epigastric abdominal pain R10.13 Active 73059054 Problem Abnormal mammogram R92.8 Active 402008704 Problem Pain in thoracic spine M54.6 Active [id number] Problem Cervicalgia M54.2 Active 6096616702064 Problem Radicular low back pain M54.10 Active 66404033 Problem Muscle spasm M62.838 Active 85914602 Problem Other chronic pain G89.29 Active 931448969 Problem Fibromyalgia M79.7 Active 376906358 Problem Anxiety F41.9 Active 047261500 Problem Acute bilateral low back pain with sciatica, sciatica laterality unspecified M54.40 Active [id number] ALLERGIES No Information ENCOUNTERS Encounter Location Date Diagnosis [facility] [address] [id number] [place] [id number] Sep, [facility] [address] [address] Sep, [facility] [address] [id number] [place] [id number] Sep, [facility] [address] [address] Sep, Fibromyalgia M79.7 [facility] [address] [id number] [place] [id number] Sep, Epigastric abdominal pain R10.13 and Diarrhea, unspecified type R19.7 [facility] [id number] [place] [address] [id number] Sep, Abnormal mammogram of left breast R92.8 [facility] [id number] [place] [address] [id number] Sep, Abnormal mammogram R92.8 [facility] [place] [id number][place] [address] Sep, [facility] [place] [id number] [place] [address] [id number] Aug, Abnormal mammogram R92.8 [facility] [place] [address] [id number], [place] [address] Aug, [facility] [place] [address] [id number] [place] [address] [id number] Aug, [facility] [id number] [place] [address] [id number] Aug, Screening breast examination Z12.31 and At risk for bone density loss Z91.89 [facility] [id number] [place] [address] [id number] Aug, [facility] [place] [address] [id number] [place] [address] Aug, [facility] [place] [address] [id number] [place] [address] Aug, Other chronic pain G89.29 [facility] [place] [address] [id number], [place] [id number] Aug, [facility] [place] [address] [id number] [place] [address] Aug, [facility] [place] [address] [id number] [place] [address] Aug, [facility] [place] [address] [id number] [place] [address] Aug, Fibromyalgia M79.7 ; Anxiety F41.9 ; High risk medication use Z79.899 ; Other chronic pain G89.29 ; Recurrent fever A68.9 ; 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 and RMSF ([place] spotted fever) A77.0 [facility] [place] [address] [id number], [place] [address] Jul, [facility] [place] [address] [id number], [place] [address]68807[address] Jul, [facility] [place] [address] [id number], [place] 821654988 Jul, Muscle spasm M62.838 and Anxiety F41.9 [facility] [place] [address] [id number], [place] [id number] Jul, [facility] [place] [address] [id number], [place] 999581934 Jul, [facility] [place] [address] [id number], [place] 061870289 Jul, [facility] [address] [id number] [place] [address] Jul, [facility] [place] [address] [id number], [place] 502496781 Jul, [facility] [place] [address] [id number], [place] 832356359 Jul, [facility] [place] [address] [id number], [place] 671803803 Jul, [facility] [place] [address] [id number], [place] [id number] Jul, [facility] [place] [address] [id number], [place] 876246685 Jul, [facility] [place] [address] [id number], [place] 029771339 Jul, [facility] [place] [address] [id number] [place] [address] [id number] Jul, Radicular low back pain M54.10 ; Other chronic pain G89.29 and Fibromyalgia M79.7 [facility] [place] [address] [id number] [place] [address] [id number] Jul, [facility] [place] [address] [id number] [place] [address] [id number] Jul, [facility] [place] [address] [id number], [place] [phone] Jul, [facility] [place] [address] [id number] [place] [address] [id number] June, [facility] [place] [address] [id number], [place] 364361370 June, [facility] [place] [address] [id number] [place] [address] [id number] June, 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 ; Recurrent fever A68.9 ; Other chronic pain G89.29 ; Radicular low back pain M54.10 ; Chronic tension- type headache, intractable G44.221 ; Essential hypertension I10 ; RMSF ([place] spotted fever) A77.0 and Abnormal brain MRI R90.89 [facility] [address] [id number], [place] [address] June, [address]005[address] [address] June, 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 and RMSF ([place] spotted fever) A77.0 [facility] [address] [id number], [place] [id number] June, [facility] [place] [id number], [place] 606[address]88[address] June, [facility] [place] [id number] [place] [address] [id number] June, RMSF ([place] spotted fever) A77.0 and 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 [facility] [place] [id number], [place] [id number] June, [facility] [place] [id number] [place] [address] [id number] June, [facility] [place] [id number] [place] [address] [id number] June, [facility] [id number] [place] [address] June, [facility] [place] [id number] [place] [address] [id number] June, [facility] [id number] [place] [address] 2544 June, Radicular low back pain M54.10 and Scoliosis of thoracolumbar spine, unspecified scoliosis type M41.9 [facility] [place] [id number], [place] [id number] June, [facility] [place] [id number], [place] [id number] June, [facility] [place] [id number], [place] [id number] June, [facility] [place] [id number], [place] [id number] June, [facility] [place] [id number], [place] 352252748 June, RMSF ([place] spotted fever) A77.0 [facility] [place] [id number] [place] [address] [id number] June, [facility] [place] [id number], [place] [id number] June, Muscle spasm M62.838 [facility] [place] [id number], [place] [id number] June, [facility] [place] [id number] [place] [address] [id number] May, [facility] [place] [id number], [place] 548178712 May, [facility] [place] [id number], [place] 134502785 May, [facility] [address] [facility] [address] [id number] [place] [id number] May, RMSF ([place] spotted fever) A77.0 [facility] [id number] [place] [address] [id number] May, Essential hypertension I10 [facility] [address]005[address]100[place], [place] 63713039- [address] May, [facility] [id number] [place] [address] [id number] May, Other chronic pain G89.29 [facility] [id number] [place] [address] [id number] May, [facility] [id number] [place] [address] [id number] May, [facility] [place] [id number], [place] 892259255 May, [facility] [id number], [place] 718786784 May, [facility] [id number] [place] [address] [id number] May, RMSF ([place] spotted fever) A77.0 ; Nausea R11.0 ; [...] F32.9 [facility] [address] [id number] [place] [address] May, [place] spotted fever A77.0 [facility] [place] [address] [id number] [place] [id number] May, [facility] [place] [address] [id number] [place] [id number] May, [facility] [address] [id number] [place] [address]- 1338 May, [facility] [place] [address] [id number] [place] [id number] May, [facility] [place] [address] [id number] [place] [id number] May, [facility] [place] [address] [id number] [place] [id number] May, [facility] [place] [address] [id number] [place] 615766881 May, [facility] [place] [address] [id number] [place] [id number] May, [facility] [place] [address] [id number] [place] 831877195 May, [facility] [place] [address] [id number] [place] [id number] May, [facility] [place] [address] [id number] [place] 649011116 May, [facility] [place] [address] [id number] [place] 505259853 May, [facility] [place] [address] [id number] [place] 640301549 May, [facility] [place] [address] [id number] [place] 965919604 May, [facility] [place] [address] [id number] [place] [id number] May, [facility] [place] [address] [id number] [place] 349178097 May, [facility] [place] [address] [id number] [place] 7940073[address] May, Radicular low back pain M54.10 ; Other chronic pain G89.29 ; Fibromyalgia M79.7 ; Cervicalgia M54.2 ; Pain in thoracic spine M54.6 and Scoliosis of thoracolumbar spine, unspecified scoliosis type M41.9 [address] [facility] [id number] [place] [id number] May, [facility] [address] [id number], [place] 751002825 Apr, Muscle spasm M62.838 [address] [facility] [id number], [place] 144260842 Apr, [address] [place] [address] [id number] Apr, Fibromyalgia M79.7 ; Muscle spasm M62.838 ; Other chronic pain G89.29 ; Vision changes H53.9 ; Headache above the eye region R51 ; Major depressive disorder, single episode, unspecified F32.9 ; Neck pain M54.2 and Thyroid nodule E04.1 [address] [facility] [id number], [place] [id number] Apr, Other chronic pain G89.29 [address] [place] [address] [id number] Apr, Chronic tension-type headache, intractable G44.[address] [place] [address] [id number] Mar, Other chronic pain G89.29 ; Scoliosis of thoracolumbar spine, unspecified scoliosis type M41.9 ; Muscle spasm M62.838 ; Other chronic pain G89.29 ; Headache above the eye region R51 ; Hospital discharge follow-up Z09 ; Lumbar back pain with radiculopathy affecting right lower extremity M54.17 ; Lumbar back pain with radiculopathy affecting left lower extremity M54.17 and Myalgia M79.1 [address] [id number], [place] 828793493 Mar, [address] [place] [address] [id number] Mar, Other chronic pain G89.29 [facility] [id number], [place] [id number] 14 Mar, 2017 Radicular low back pain M54.10 [facility] [id number] [place] [address] [id number] Feb, [facility] [id number] [place] [address] [id number] Feb, [facility] [id number] [place] [address] [id number] Feb, Muscle spasm M62.838 [id number] [place] [address] [id number] Feb, Itching L29.9 and Acute bilateral back pain, unspecified back location M54.9 [id number] [place] [address] [id number] Feb, History of pneumonia Z87.01 ; Cough R05 ; Radicular low back pain M54.10 ; Scoliosis of thoracolumbar spine, unspecified scoliosis type M41.9 ; Elevated liver enzymes R74.8 ; Influenza J11.1 ; Severe single current episode of major depressive disorder, without psychotic features F32.2 and Stressful life events affecting family and household Z63.79 [id number] [place] [address] [id number] Jan, Muscle spasm M62.838 [id number] [place] [address] [id number] Jan, Post-nasal drainage R09.82 ; Anxiety F41.9 and Cough R05 [id number] [place] [address] [id number] 15 Jan, 2017 Severe episode of recurrent major depressive disorder, without psychotic features F33.2 [id number] [place] [address] [id number] Jan, Muscle spasm M62.838 [id number] [place] [address] [id number] 08 Jan, 2017 Acute recurrent maxillary sinusitis J01.01 and Breast tenderness in female N64.4 [id number], [place] [id number] Nov, [address] [place] [address] [id number] Nov, [address] [place] [address] [id number] Nov, Radicular low back pain M54.10 and Muscle spasm M62.838 [id number] [place] [address] [id number] Nov, [id number] [place] [address] [id number] Nov, Viral disease B34.9 ; Fever, unspecified fever cause R50.9 ; Other fatigue R53.83 and Other malaise R53.[address] [place] [address] [id number] Nov, Thyroid nodule E04.1 [id number] [place] [address] [id number] Nov, Severe episode of recurrent major depressive disorder, without psychotic features F33.[address] [place] [address] [id number] Nov, Acute nasopharyngitis J00 [address] [place] [address] [id number] Oct, Scoliosis of thoracolumbar spine, unspecified scoliosis type M41.9 ; Muscle spasm M62.838 ; Thyroid nodule E04.1 ; Pain in thoracic spine M54.6 ; Other chronic pain G89.29 ; Cervicalgia M54.2 ; Radicular low back pain M54.10 ; Severe episode of recurrent major depressive disorder, without psychotic features F33.2 and High risk medication use Z79.899 [facility] [address]00565100[place], [place] 18326[address]- [address] Oct, [address]00565100[place], [place] 899594762 Sep, Scoliosis of thoracolumbar spine, unspecified scoliosis type M41.9 ; Muscle spasm M62.838 ; Thyroid nodule E04.1 ; Pain in thoracic spine M54.6 ; Other chronic pain G89.29 ; Cervicalgia M54.2 ; Controlled substance agreement signed Z79.899 ; Vaginal yeast infection B37.3 and Radicular low back pain M54.10 [address] [id number] [place] [address] [id number] Sep, Scoliosis of thoracolumbar spine, unspecified scoliosis type M41.9 and Muscle spasm M62.838 [id number] [place] [address] [id number] Sep, Severe episode of recurrent major depressive disorder, without psychotic features F33.2 [id number] [place] [address] [id number] Aug, Severe episode of recurrent major depressive disorder, without psychotic features F33.2 ; Thyroid nodule E04.1 ; Constipation, chronic K59.09 and Non morbid obesity due to excess calories E66.09 [id number] [place] [address] [id number] Aug, Non morbid obesity due to excess calories E66.09 and Thyroid nodule E04.1 [address] [place] [address] [id number] Aug, [address] [id number] Jul, Severe episode of recurrent major depressive disorder, without psychotic features F33.2 ; Thyroid nodule E04.1 ; Constipation, chronic K59.09 and Non morbid obesity due to excess calories E66.09 [address] [place] [address] [id number] June, Sore throat J02.9 and Major depressive disorder, single episode, unspecified F32.9 [facility] [address] [address]- [address] May, [facility] [address] [address]- [address] May, [facility] [address] [address]- [address] Mar, [facility] [address] [id number] [place] [address]- 67[address] 14 Mar, 2013 [facility] [place] [facility] [address] [id number] [place] [address]- 3456 06 Mar, 2013 [facility] [address] [id number] [place] [address]- 4546 06 Mar, 2013 [facility] [place] [facility] [address] [id number] [place] [address]- 9765 30 Jan, 2013 [facility] [address] [id number] [place] [address]- 8240 Jan, [facility] [place] [facility] [address] [id number] [place] [address]- 1286 Jan, [facility] [place] [facility] [address] [id number] [place] [address]- 5006 Jan, [facility] [address] [id number] [place] [address]- 6698 Jan, [facility] [place] [facility] [address] [id number] [place] [address]- 0195 Jan, [facility] [place] [facility] [address] [id number] [place] [address]- 5013 Jan, [facility] [place] [facility] [address] [id number] [place] [address]- 4561 Jan, [facility] [place] [facility] [address] [id number][place] [address]- 1505 Dec, [facility] [place] [facility] [address] [id number] [place] [address]- 3361 Dec, [facility] [place] [facility] [address] [id number] [place] [address]- 8256 Apr, [facility] [place] [facility] [address] [id number] [place] [address]- 1538 Jan, [facility] [place] [facility] [address] [facility] [id number], [place] [address]- 1526 Jan, [facility] [place] [facility] [address] [id number] [place] [address]- 0601 Dec, [facility] [place] [facility] [address] [facility] [id number] [address]- 1168 Dec, [facility] [place] [facility] [address] [facility] [id number], [place] [address]- 2950 Nov, [facility] [place] [facility] [address] [facility] [id number][place] [address]- 8756 Nov, [facility] [place] [facility] [address] [facility] [id number], [place] [address]- 5594 Sep, [facility] [place] [facility] [address] [facility] [id number][place] [address]- 0347 Sep, [facility] [place] [id number], [place] [id number] Sep, [facility] [place] [address] [id number], [place] [id number] Sep, [facility] [place] [facility] [address]00565100[place], [place] [address]- 59[address] Sep, [facility] [place] [facility] [address] [id number], [place] [address]- 2656 Sep, [facility] [place] [address] [facility] [id number], [place] [id number] Aug, [facility] [place] [facility] [address] [facility] [id number] [address]- 7501 Aug, [facility] [place] [facility] [address] [facility] [id number], [place] [address]- 3087 Aug, [facility] [place] [facility] [address] [facility] [id number] [address]- 6489 Aug, [facility] [address] [facility] [id number] [id number] Jul, [facility] [place] [facility] [address] [facility] [id number], [place] [address] Jul, [facility] [place] [facility] [address] [id number] [place] [address] Jul, [facility] [place] [facility] [address] [id number], [place] [address] Jul, [facility] [place] [facility] [address] [facility] [id number] [place] [address] May, [facility] [place] [facility] [address] [id number], [place] [address] Feb, [facility] [place] [facility] [address] [id number] [place] [address] Jan, [facility] [place] [facility] [address] [facility] [id number], [place] [address] Jan, [facility] [place] [facility] [address] [facility] [id number], [place] [address] Dec, [facility] [place] [facility] [address] [id number], [place] [address] Dec, [facility] [place] [facility] [address] [facility] [id number], [place] [address] Dec, [facility] [place] [facility] [address] [facility] [id number][place] [address] Nov, [facility] [place] [facility] [address] [facility] [id number], [place] [address] Nov, [facility] [place] [facility] [address] [id number], [place] [address] Sep, [facility] [place] [facility] [address] [id number], [place] [address] Jul, [facility] [place] [facility] [address] [facility] [id number], [place] [address] Mar, [facility] [place] [facility] [address] [facility] [id number], [place] [address] Nov, 2007 [facility] [place] [facility] [address] [facility] [id number] [place] [address] Nov, IMMUNIZATIONS No Known Immunizations SOCIAL HISTORY Never Assessed REASON FOR VISIT Referral PLAN OF CARE VITAL SIGNS MEDICATIONS Unknown Medications RESULTS No Results PROCEDURES No Known procedures INSTRUCTIONS MEDICATIONS ADMINISTERED No Known Medications MEDICAL (GENERAL) HISTORY Type Description Date Medical History Fibromyalgia Medical History Chronic Consipation Medical History 08/16/16 [facility] general surgery center, Dr. Jimenez, hemorrhage [...] Medical History MRI- Brain 05/29/2017 Medical History [place] Spotted Tick Fever Medical History Ebstein Feng Virus Surgical History hysterectomy, total with unilateral salpingo-oophorectomy ( USO) Surgical History cholecystectomy Surgical History tonsillectomy and adenoidectomy Surgical History hemorrhoidectomy Surgical History EGD Surgical History colonoscopy 08/25/16 Hospitalization History fever, HTN, abnormal head [facility] 05/28/17
--- OUTSIDE RECORDS SUMMARY | 2018-04-29 18:59 | XMS REPORT ---
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 Name Role Phone BALA BIRD Unavailable PROBLEMS Type Condition ICD9-CM Code ZGU72-OZ Code Onset Dates Condition Status SNOMED Code Problem Major depressive disorder, single episode, unspecified F32.9 Active 09472706 Problem Thyroid nodule E04.1 Active 33408367 Problem Severe single current episode of major depressive disorder, without psychotic features F32.2 Active 43752206 Problem Severe episode of recurrent major depressive disorder, without psychotic features F33.2 Active 358187987585 Problem Chronic tension-type headache, intractable G44.221 Active 490745140 Problem Constipation, chronic K59.09 Active 307671578 Problem Essential hypertension I10 Active 79764908 Problem Non morbid obesity due to excess calories E66.09 Active 154706909 Problem 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 Active 460131590 Problem RMSF (Derma spotted fever) A77.0 Active 914732795 Problem Abnormal brain MRI R90.89 Active 055746245 Problem Abnormal mammogram of left breast R92.8 Active 880607946 Problem Diarrhea, unspecified type R19.7 Active 74919970 Problem Controlled substance agreement signed Z79.899 Active 571615420 Problem Other chronic pain G89.29 Active 436445184 Problem Scoliosis of thoracolumbar spine, unspecified scoliosis type M41.9 Active 136581302 Problem 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 Active 337501166 Problem Recurrent fever A68.9 Active 777889307 Problem Epigastric abdominal pain R10.13 Active 37042617 Problem Abnormal mammogram R92.8 Active 929492100 Problem Pain in thoracic spine M54.6 Active 030809066921639 Problem Cervicalgia M54.2 Active 1687693343841 Problem Radicular low back pain M54.10 Active 67326913 Problem Muscle spasm M62.838 Active 13304881 Problem Other chronic pain G89.29 Active 756707504 Problem Fibromyalgia M79.7 Active 765709690 Problem Anxiety F41.9 Active 061115515 Problem Acute bilateral low back pain with sciatica, sciatica laterality unspecified M54.40 Active 642405943 ALLERGIES No Known Allergies ENCOUNTERS Encounter Location Date Diagnosis [facility] [address] [id number] [id number] Sep, [facility] [address]005[address] [address] Sep, [facility] [address] [id number] [place] [id number] Sep, [facility] [address]65100[place] [address] Sep, Fibromyalgia M79.7 [facility] [address] [id number] [place] [id number] Sep, Epigastric abdominal pain R10.13 and Diarrhea, unspecified type R19.7 [facility] [id number] [place] [address] [id number] Sep, Abnormal mammogram of left breast R92.8 [facility] [id number] [place] [address] [id number] Sep, Abnormal mammogram R92.8 [facility] [id number][place] [id number] Sep, [facility] [address] [id number] [place] [address] [id number] Aug, Abnormal mammogram R92.8 [facility] [address] [id number] Aug, [facility] [address] [id number] [place] [address] [id number] Aug, [facility] [address] [id number] [place] [address] [id number] Aug, Screening breast examination Z12.31 and At risk for bone density loss Z91.89 [facility] [id number] [place] [address] [id number] Aug, [facility] [place] [address] [id number] [place] [id number] Aug, [facility] [place] [address] [id number] [place] [id number] Aug, Other chronic pain G89.29 [facility] [place] [address] [id number], [place] [id number] Aug, [facility] [place] [address] [id number] [place] [id number] Aug, [facility] [place] [address] [id number], [place] [id number] Aug, [facility] [place] [address] [id number] [place] [address] Aug, Fibromyalgia M79.7 ; Anxiety F41.9 ; High risk medication use Z79.899 ; Other chronic pain G89.29 ; Recurrent fever A68.9 ; 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 and RMSF (Derma spotted fever) A77.0 [facility] [place] [address] [id number][place] [id number] Jul, [facility] [place] [address] [id number], [place] [id number] Jul, [facility] [place] [address] [id number], [place] [id number] Jul, Muscle spasm M62.838 and Anxiety F41.9 [facility] [place] [address] [id number], [place] [id number] Jul, [facility] [place] [address] [id number], [place] [id number] Jul, [facility] [place] [address] [id number], [place] [id number] Jul, [facility] [address] [id number] DAM, [place] [id number] Jul, [facility] [place] [address] [id number], [place] [id number] Jul, [facility] [place] [address] [id number], [place] [id number] Jul, [facility] [place] [address] [id number], [place] [id number] Jul, [facility] [place] [address] [id number], [place] [id number] Jul, [facility] [place] [address] [id number], [place] [id number] Jul, [facility] [place] [address] [id number], [place] [id number] Jul, [facility] [place] [id number] [place] [address] [id number] Jul, Radicular low back pain M54.10 ; Other chronic pain G89.29 and Fibromyalgia M79.7 [facility] [place] [address] [id number] [place] [address] [id number] Jul, [facility] [place] [address] [id number] [place] [address] [id number] Jul, [facility] [place] [address] [id number], [place] [id number] Jul, [facility] [place] [id number] [place] [address] [id number] June, [facility] [place] [address] [id number], [place] [id number] June, [facility] [address] [id number], [place] [id number] June, 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 ; Recurrent fever A68.9 ; Other chronic pain G89.29 ; Radicular low back pain M54.10 ; Chronic tension- type headache, intractable G44.221 ; Essential hypertension I10 ; RMSF (Derma spotted fever) A77.0 and Abnormal brain MRI R90.89 [facility] [address] [id number], [place] [id number] June, [address]00565100[place] [id number] June, 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 and RMSF (Derma spotted fever) A77.0 [facility] [address] [id number] [place] [address] [id number] June, [facility] [place] [id number], [place] [id number] June, [facility] [place] [id number] [place] [address] [id number] June, RMSF (Derma spotted fever) A77.0 and 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 [facility] [place] [address] [id number], [place] [id number] June, [facility] [place] [id number] [place] [address] [id number] June, [facility] [place] [id number] [place] [address] [id number] June, [facility] [id number] [place] [phone] June, [facility] [place] [id number] [place] [address] [id number] June, [facility] [id number] [place] [address] 97218 2543 June, Radicular low back pain M54.10 and Scoliosis of thoracolumbar spine, unspecified scoliosis type M41.9 [facility] [place] [id number], [place] [id number] June, [facility] [id number], [place] [id number] June, [facility] [place] [address] [id number], [place] [id number] June, [facility] [place] [address] [id number], [place] [id number] June, [facility] [place] [address] [id number], [place] [id number] June, RMSF (Derma spotted fever) A77.0 [facility] [place] [address] [id number], [place] [id number] June, [facility] [place] [address] [id number], [place] [id number] June, Muscle spasm M62.838 [facility] [place] [id number], [place] [id number] June, [facility] [place] [id number] [place] [address] [id number] May, [facility] [place] [id number] [place] [address] [id number] May, [facility] [id number] [place] [address] [id number] May, [facility] [address] [facility] [address] [id number] [place] [id number] May, RMSF (Derma spotted fever) A77.[address] [facility] [id number] [place] [address] [id number] May, Essential hypertension I10 [facility] [address]00565100[place], [place] 26740[place] [address] May, [facility] [id number] [place] [address] [id number] May, Other chronic pain G89.29 [facility] [id number] [place] [address] [id number] May, [facility] [id number] [place] [address] [id number] May, [facility] [id number] [place] [address] [id number] May, [facility] [id number] [place] [address] [id number] May, [facility] [id number] [place] [address] [id number] May, RMSF (Derma spotted fever) A77.0 ; Nausea R11.0 ; [...] Major depressive disorder, single episode, unspecified F32.9 [facility] [address] [id number] [place] [address] May, Derma spotted fever A77.0 [facility] [place] [address] [id number] [place] [id number] May, [facility] [place] [address] [id number] [place] [id number] May, [facility] [address] [id number] [place] [address]- [address] May, [facility] [place] [address] [id number] [place] [id number] May, [facility] [place] [address] [id number] [place] [id number] May, [facility] [place] [address] [id number] [place] [id number] May, [facility] [place] [address] [id number] [place] [id number] May, [facility] [place] [address] [id number] [place] [id number] May, [facility] [place] [address] [id number] [place] [id number] May, [facility] [place] [address] [id number] [place] [id number] May, [facility] [place] [address] [id number] [place] [id number] May, [facility] [place] [address] [id number] [place] [id number] May, [facility] [place] [address] [id number] [place] [id number] May, [facility] [place] [address] [id number] [place] [id number] May, [facility] [place] [address] [id number] [place] [id number] May, [facility] [place] [address] [id number] [place] [id number] May, [facility] [place] [address] [id number] [place] [id number] May, Radicular low back pain M54.10 ; Other chronic pain G89.29 ; Fibromyalgia M79.7 ; Cervicalgia M54.2 ; Pain in thoracic spine M54.6 and Scoliosis of thoracolumbar spine, unspecified scoliosis type M41.9 [place] [address] [facility] [id number] [place] [id number] May, [place] [address] [id number], [place] [id number] Apr, Muscle spasm M62.838 [place] [address] [id number], [place] [id number] Apr, [address] [place] [address] [id number] Apr, Fibromyalgia M79.7 ; Muscle spasm M62.838 ; Other chronic pain G89.29 ; Vision changes H53.9 ; Headache above the eye region R51 ; Major depressive disorder, single episode, unspecified F32.9 ; Neck pain M54.2 and Thyroid nodule E04.1 [place] [address] [facility] [id number], [place] [id number] Apr, Other chronic pain G89.29 [address] [place] [address] [id number] Apr, Chronic tension-type headache, intractable G44.221 [address]00565100[place], [place] [id number] Mar, Other chronic pain G89.29 ; Scoliosis of thoracolumbar spine, unspecified scoliosis type M41.9 ; Muscle spasm M62.838 ; Other chronic pain G89.29 ; Headache above the eye region R51 ; Hospital discharge follow-up Z09 ; Lumbar back pain with radiculopathy affecting right lower extremity M54.17 ; Lumbar back pain with radiculopathy affecting left lower extremity M54.17 and Myalgia M79.1 [place] [address] [id number], [place] [id number] Mar, [place] [id number] [id number] Mar, Other chronic pain G89.29 [facility] [id number] [place] [address] [id number] 14 Mar, 2017 Radicular low back pain M54.10 [facility] [id number] [place] [address] [id number] Feb, [facility] [id number] [place] [address] [id number] Feb, [facility] [id number] [place] [address] [id number] Feb, Muscle spasm M62.838 [place] [id number] [place] [address] [id number] Feb, Itching L29.9 and Acute bilateral back pain, unspecified back location M54.9 [place] [id number] [place] [address] [id number] Feb, History of pneumonia Z87.01 ; Cough R05 ; Radicular low back pain M54.10 ; Scoliosis of thoracolumbar spine, unspecified scoliosis type M41.9 ; Elevated liver enzymes R74.8 ; Influenza J11.1 ; Severe single current episode of major depressive disorder, without psychotic features F32.2 and Stressful life events affecting family and household Z63.79 [place] [id number] [place] [address] [id number] Jan, Muscle spasm M62.838 [place] [id number] [place] [address] [id number] Jan, Post-nasal drainage R09.82 ; Anxiety F41.9 and Cough R05 [place] [id number] [place] [address] [id number] 15 Jan, 2017 Severe episode of recurrent major depressive disorder, without psychotic features F33.2 [place] [id number] [place] [address] [id number] Jan, Muscle spasm M62.838 [place] [id number] [place] [address] [id number] 08 Jan, 2017 Acute recurrent maxillary sinusitis J01.01 and Breast tenderness in female N64.4 [facility] [id number], [place] [id number] Nov, [address] [place] [address] [id number] Nov, [id number] [place] [address] [id number] Nov, Radicular low back pain M54.10 and Muscle spasm M62.838 [place] [id number] [place] [address] [id number] Nov, [place] [id number] [place] [address] [id number] Nov, Viral disease B34.9 ; Fever, unspecified fever cause R50.9 ; Other fatigue R53.83 and Other malaise R53.[address] [place] [address] [id number] Nov, Thyroid nodule E04.1 [place] [id number] [place] [address] [id number] Nov, Severe episode of recurrent major depressive disorder, without psychotic features F33.[address] [place] [address] [id number] Nov, Acute nasopharyngitis J00 [address] [place] [address] [id number] Oct, Scoliosis of thoracolumbar spine, unspecified scoliosis type M41.9 ; Muscle spasm M62.838 ; Thyroid nodule E04.1 ; Pain in thoracic spine M54.6 ; Other chronic pain G89.29 ; Cervicalgia M54.2 ; Radicular low back pain M54.10 ; Severe episode of recurrent major depressive disorder, without psychotic features F33.2 and High risk medication use Z79.899 [facility] [address]00565100[place], [place] [address]- [address] Oct, [facility] [id number], [place] [id number] Sep, Scoliosis of thoracolumbar spine, unspecified scoliosis type M41.9 ; Muscle spasm M62.838 ; Thyroid nodule E04.1 ; Pain in thoracic spine M54.6 ; Other chronic pain G89.29 ; Cervicalgia M54.2 ; Controlled substance agreement signed Z79.899 ; Vaginal yeast infection B37.3 and Radicular low back pain M54.10 [place] [id number] [place] [address] [id number] Sep, Scoliosis of thoracolumbar spine, unspecified scoliosis type M41.9 and Muscle spasm M62.838 [place] [id number] [place] [address] [id number] Sep, Severe episode of recurrent major depressive disorder, without psychotic features F33.2 [place] [id number] [place] [address] [id number] Aug, Severe episode of recurrent major depressive disorder, without psychotic features F33.2 ; Thyroid nodule E04.1 ; Constipation, chronic K59.09 and Non morbid obesity due to excess calories E66.09 [place] [id number] [place] [address] [id number] Aug, Non morbid obesity due to excess calories E66.09 and Thyroid nodule E04.1 [place] [id number] [place] [address] [id number] Aug, [place] [id number] [place] [address] [id number] Jul, Severe episode of recurrent major depressive disorder, without psychotic features F33.2 ; Thyroid nodule E04.1 ; Constipation, chronic K59.09 and Non morbid obesity due to excess calories E66.09 [place] [id number] [place] [address] [id number] June, Sore throat J02.9 and Major depressive disorder, single episode, unspecified F32.9 [facility] [address] [address] May, [facility] [address] [address]- [address] May, [facility] [address] [address]- [address] Mar, [facility] [address] [id number] [place] [address]- 2830 14 Mar, 2013 [facility] [place] [facility] [address] [id number] [place] [address]- 5566 06 Mar, 2013 [facility] [place] [facility] [address] [id number] [place] [address]- 6206 06 Mar, 2013 [facility] [place] [facility] [address] [id number] [place] [address]- 7014 30 Jan, 2013 [facility] [place] [facility] [address] [id number] [place] [address]- 6920 Jan, [facility] [place] [facility] [address] [id number] [place] [address]- 5306 Jan, [facility] [place] [facility] [address] [id number] [place] [address]- 2006 Jan, [facility] [place] [facility] [address] [id number] [place] [address]- 7288 Jan, [facility] [place] [facility] [address] [id number] [place] [address]- 6182 Jan, [facility] [place] [facility] [address] [facility] [id number] [place] [address]- 3204 Jan, [facility] [place] [facility] [address] [id number] [place] [address]- 9759 Jan, [facility] [place] [facility] [address] [id number], [place] [address]- 8926 Dec, [facility] [place] [facility] [address] [id number] [place] [address]- 8532 Dec, [facility] [place] [facility] [address] [id number] [place] [address]- 6796 Apr, [facility] [place] [facility] [address] [facility] [id number] [place] [address]- 2619 Jan, [facility] [place] [facility] [address] [facility] [id number], [place] [address]- 3820 Jan, [facility] [place] [facility] [address] [facility] [id number] [place] [address]- 5245 Dec, [facility] [place] [facility] [address] [facility] [id number], [place] [address]- 6592 Dec, [facility] [place] [facility] [address] [facility] [id number], [place] [address]- 6302 Nov, [facility] [place] [facility] [address] [facility] [id number], [place] [address]- 3142 Nov, [facility] [place] [facility] [address] [facility] [id number], [place] [address]- 0092 Sep, [facility] [place] [facility] [address] [facility] [id number], [place] [address]- 1202 Sep, [facility] [place] [id number], [place] [id number] Sep, [facility] [place] [address] [id number], [place] [id number] Sep, [facility] [place] [facility] [address] [id number], [place] [address]- 7664 Sep, [facility] [place] [facility] [address] [facility] [id number], [place] [address]- 8764 Sep, [facility] [place] [address] [facility] [id number], [place] [id number] Aug, [facility] [place] [facility] [address] [facility] [id number], [place] [address]- 9869 Aug, [facility] [place] [facility] [address] [facility] [id number], [place] [address]- 3688 Aug, [facility] [place] [facility] [address] [facility] [id number], [place] [address] Aug, [facility] [address] [facility] [id number][place] [id number] Jul, [facility] [place] [facility] [address] [facility] [id number], [place] [address] Jul, [facility] [place] [facility] [address] [id number] [place] [address] Jul, [facility] [place] [facility] [address] [id number], [place] [address] Jul, [facility] [place] [facility] [address] [facility] [id number], [place] [address] May, [facility] [place] [facility] [address] [id number], [place] [address] Feb, [facility] [place] [facility] [address] [id number] [place] Jan, [facility] [place] [facility] [address] [id number] [address] Jan, [facility] [place] [facility] [address] [id number], [place] [address] Dec, [facility] [place] [facility] [address] [id number], [place] [address] Dec, [facility] [place] [facility] [address] [id number], [place] [address] Dec, [facility] [place] [facility] [address] [id number], [place] [address] Nov, [facility] [place] [facility] [address] [id number], [place] [address] Nov, [facility] [place] [facility] [address] [id number], [place] [address] Sep, [facility] [place] [facility] [address] [id number], [place] [address] Jul, [facility] [place] [facility] [address] [facility] [id number], [place] [address] Mar, [facility] [place] [facility] [address] [id number], [place] [address] Nov, 2007 [facility] [place] [facility] [address] [facility] [id number] [place] [address] Nov, IMMUNIZATIONS No Known Immunizations SOCIAL HISTORY Never Assessed REASON FOR VISIT epigastric pain ALFREDA PASCAL PLAN OF CARE Activity Details Follow Up prn Reason: VITAL SIGNS Height 64 in 2017-10-12 Weight 175.1 lbs 2017-10-12 Temperature 98.63 degrees Fahrenheit 2017-10-12 Heart Rate 82 bpm 2017-10-12 Respiratory Rate 16 2017-10-12 Oximetry 98 % 2017-10-12 BMI 30.05 kg/m2 2017-10-12 Blood pressure systolic 112 mmHg 2017-10-12 Blood pressure diastolic 82 mmHg 2017-10-12 MEDICATIONS Medication Instructions Dosage Frequency Start Date End Date Duration Status Promethazine HCl 12.5 MG Orally 3 times a day 1 tablet as needed for nausea 8h Sep, Oct, 30 day(s) Active Bentyl 10 mg Orally 3 times a day 1-2 capsules as needed 8h Sep, Nov, 30 day(s) Active Lexapro 20 mg 1 tablet Once a day Orally 0 days 0 Active Womens Multivitamin - Not-Taking Ibuprofen 200 MG Orally Three times a day 4 tablets as needed 8h Nov, Active Lisinopril 10 MG TAKE 1 TABLET BY MOUTH DAILY 90 Active Zantac 150 MG Orally Once a day 1 tablet at bedtime 24h Sep, 90 days Active Diazepam 5 mg Orally Once a day for 7 days then every other day for 7 days, then every 3rd day then stop when script is out 1 tablet as needed 28 days Active Fiber Adult Gummies 2 GM Not-Taking RESULTS Name Result Date Reference Range H PYLORI (IN HOUSE) 2017-10-12 H. PYLORI negative Control + Lot # [id number] Exp date 07/21/2018 Xray : Abdomen 1v (Upright Only) - IN HOUSE 2017-10-12 PROCEDURES Procedure Date Ordered Result Body Site IMMUNOASSAY,INFECTIOUS AGENT Oct 12, 2017 X-RAY EXAM ABDOMEN 1 VIEW Oct 12, 2017 INSTRUCTIONS MEDICATIONS ADMINISTERED No Known Medications MEDICAL (GENERAL) HISTORY Type Description Date Medical History Fibromyalgia Medical History Chronic Consipation Medical History 08/16/16 [facility] general surgery center, Dr. Jimenez, hemorrhage of [...] Medical History MRI- Brain 05/29/2017 Medical History Derma Spotted Tick Fever Medical History Ebstein Feng Virus Surgical History hysterectomy, total with unilateral salpingo-oophorectomy ( USO) Surgical History cholecystectomy Surgical History tonsillectomy and adenoidectomy Surgical History hemorrhoidectomy Surgical History EGD Surgical History colonoscopy 08/25/16 Hospitalization History fever, HTN, abnormal head CT-VC 05/28/17
--- OUTSIDE RECORDS SUMMARY | 2018-04-29 19:00 | XMS REPORT ---
Author Author MICHAEL CORREIA Organization [facility] Address [address] [place] [address] Care Team Providers Care Visual Specialist Name Role Phone MICHAEL CORREIA Unavailable PROBLEMS Type Condition ICD9-CM Code [id number] Code Onset Dates Condition Status SNOMED Code Problem Major depressive disorder, single episode, unspecified F32.9 Active 33785567 Problem Thyroid nodule E04.1 Active 51417785 Problem Severe single current episode of major depressive disorder, without psychotic features F32.2 Active 55662633 Problem Severe episode of recurrent major depressive disorder, without psychotic features F33.2 Active 885192841382 Problem Chronic tension-type headache, intractable G44.221 Active 287560582 Problem Constipation, chronic K59.09 Active 902795460 Problem Essential hypertension I10 Active 51514288 Problem Non morbid obesity due to excess calories E66.09 Active 778894392 Problem 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 Active 438456646 Problem RMSF ([place] spotted fever) A77.0 Active 010653402 Problem Abnormal brain MRI R90.89 Active 787193556 Problem Abnormal mammogram of left breast R92.8 Active 198834280 Problem Diarrhea, unspecified type R19.7 Active 70565300 Problem Controlled substance agreement signed Z79.899 Active 638656655 Problem Other chronic pain G89.29 Active 456724679 Problem Scoliosis of thoracolumbar spine, unspecified scoliosis type M41.9 Active 637337532 Problem 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 Active 253408741 Problem Recurrent fever A68.9 Active 491592717 Problem Epigastric abdominal pain R10.13 Active 96460227 Problem Abnormal mammogram R92.8 Active 660181451 Problem Pain in thoracic spine M54.6 Active [id number] Problem Cervicalgia M54.2 Active 2554134294862 Problem Radicular low back pain M54.10 Active 49911047 Problem Muscle spasm M62.838 Active 56426705 Problem Other chronic pain G89.29 Active 192441098 Problem Fibromyalgia M79.7 Active 432730583 Problem Anxiety F41.9 Active 635690720 Problem Acute bilateral low back pain with sciatica, sciatica laterality unspecified M54.40 Active 466886861 ALLERGIES No Known Allergies ENCOUNTERS Encounter Location Date Diagnosis [facility] [address] [id number] [id number] Sep, [facility] [address] [id number] [id number] Sep, [facility] [address] [id number][place] [id number] Sep, [facility] [address] [id number] [address] Sep, Fibromyalgia M79.7 [facility] [address] [id number][place] [id number] Sep, Epigastric abdominal pain R10.13 and Diarrhea, unspecified type R19.7 [facility] [id number] [place] [address] [id number] Sep, Abnormal mammogram of left breast R92.8 [facility] [id number], [place] [address]84 Sep, Abnormal mammogram R92.8 [facility] [id number], [place] [id number] Sep, [facility] [id number] [place] [address] [id number] Aug, Abnormal mammogram R92.8 [facility] [address] [id number][place] [id number] Aug, [facility] [id number] [place] [address] [id number] Aug, [facility] [address] [id number][place] [id number] Aug, Screening breast examination Z12.31 and At risk for bone density loss Z91.89 [facility] [address] [id number] [place] [id number] Aug, [facility] [place] [address] [id number] [place] [id number] Aug, [facility] [place] [address] [id number] [place] 172091181 Aug, Other chronic pain G89.29 [facility] [place] [address] [id number][place] [id number] Aug, [facility] [place] [address] [id number][place] [id number] Aug, [facility] [place] [address] [id number] [place] [id number] Aug, [facility] [place] [address] [id number] [place] [id number] Aug, Fibromyalgia M79.7 ; Anxiety F41.9 ; High risk medication use Z79.899 ; Other chronic pain G89.29 ; Recurrent fever A68.9 ; 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 and RMSF ([place] spotted fever) A77.0 [facility] [place] [address] [id number], [place] [phone] Jul, [facility] [place] [address] [id number][place] [id number] Jul, [facility] [place] [address] [id number][place] [address]65833248 Jul, Muscle spasm M62.838 and Anxiety F41.9 [facility] [place] [address] [id number], [place] 786303788 Jul, [facility] [place] [address] [id number], [place] [id number] Jul, [facility] [place] [address] [id number], [place] [phone] Jul, [facility] [address] [id number], [place] [phone] Jul, [facility] [place] [address] [id number], [place] [id number] Jul, [facility] [place] [address] [id number], [place] 886[place]1992 Jul, [facility] [place] [address] [id number] [place] [id number] Jul, [facility] [place] [address] [id number] [place] [phone] Jul, [facility] [place] [address] [id number] [place] [id number] Jul, [facility] [place] [address] [id number] [place] [phone] Jul, [facility] [place] [address] [id number] [place] [phone] Jul, Radicular low back pain M54.10 ; Other chronic pain G89.29 and Fibromyalgia M79.7 [facility] [place] [address] [id number] [place] [phone] Jul, [facility] [place] [id number] [place] [address] [id number] Jul, [facility] [place] [id number] [place] [address] [id number] Jul, 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 [place] [address] [id number], [place] [id number] June, 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 [id number] [place] [address]- 8[address] June, [facility] [place] [facility] [id number] [place] [address] [id number] June, [facility] [id number] [place] [address]681- [address] June, Radicular low back pain M54.10 and Scoliosis of thoracolumbar spine, unspecified scoliosis type M41.9 [facility] [place] [address] [id number], [place] [id number] June, [facility] [place] [id number], [place] [id number] June, [facility] [place] [address] [id number], [place] [phone] June, [facility] [place] [address] [id number], [place] [id number] June, [facility] [place] [id number] [place] [address] [id number] June, 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 [place] [place] [id number], [place] [id number] May, [facility] [id number] [place] [address] [id number] May, [facility] [address] [id number][place] [id number] May, RMSF ([place] spotted fever) A77.0 [facility] [address] [id number], [place] [id number] May, Essential hypertension I10 [facility] [id number] [address] May, [facility] [id number] [place] [address] [id number] May, Other chronic pain G89.29 [facility] [id number] [place] [address] [id number] May, [facility] [id number] [place] [address] [id number] May, [facility] [id number] [place] [address] [id number] May, [facility] [id number] [place] [address] [id number] May, [facility] [id number], [place] [id number] May, RMSF ([place] spotted fever) A77.0 ; Nausea R11.0 ; [...] single episode, unspecified F32.9 [facility] [address] [id number] [place] [address] May, [place] spotted fever A77.0 [facility] [place] [address] [id number] [place] [id number] May, [facility] [place] [address] [id number] [place] [id number] May, [facility] [address] [id number] [place] [address]- [address] May, [facility] [place] [address] [id number] [place] [id number] May, [facility] [place] [address] [id number] [place] [id number] May, [facility] [place] [address] [id number] [place] [id number] May, [facility] [place] [address] [id number] [place] [id number] May, [facility] [place] [address] [id number] [place] [id number] May, [facility] [place] [address] [id number] [place] [id number] May, [facility] [place] [address] [id number] [place] [id number] May, [facility] [place] [address] [id number] [place] [id number] May, [facility] [place] [address] [id number] [place] 068904402 May, [facility] [place] [address] [id number] [place] [id number] May, [facility] [place] [address] [id number] [place] [id number] May, [facility] [place] [address] [id number] [place] [id number] May, [facility] [place] [address] [id number] [place] [id number] May, [facility] [place] [address] [id number], [place] [id number] May, Radicular low back pain M54.10 ; Other chronic pain G89.29 ; Fibromyalgia M79.7 ; Cervicalgia M54.2 ; Pain in thoracic spine M54.6 and Scoliosis of thoracolumbar spine, unspecified scoliosis type M41.[address] [id number], [place] [id number] May, [facility] [address] [facility] [id number], [place] [id number] Apr, Muscle spasm M62.838 [facility] [address] [place] [address] [id number] Apr, [id number] [place] [address] [id number] Apr, Fibromyalgia M79.7 ; Muscle spasm M62.838 ; Other chronic pain G89.29 ; Vision changes H53.9 ; Headache above the eye region R51 ; Major depressive disorder, single episode, unspecified F32.9 ; Neck pain M54.2 and Thyroid nodule E04.1 [address]00565100[place], [place] [id number] Apr, Other chronic pain G89.29 [address]65100[place], [place] [id number] Apr, Chronic tension-type headache, intractable G44.221 [address]65100[place], [place] 870735035 Mar, Other chronic pain G89.29 ; Scoliosis of thoracolumbar spine, unspecified scoliosis type M41.9 ; Muscle spasm M62.838 ; Other chronic pain G89.29 ; Headache above the eye region R51 ; Hospital discharge follow-up Z09 ; Lumbar back pain with radiculopathy affecting right lower extremity M54.17 ; Lumbar back pain with radiculopathy affecting left lower extremity M54.17 and Myalgia M79.1 [facility] [address] [id number], [place] 827693850 Mar, [id number] [place] [address] [id number] 14 Mar, 2017 Other chronic pain G89.29 [facility] [id number] [place] [address] [id number] 14 Mar, 2017 Radicular low back pain M54.10 [facility] [id number] [place] [address] [id number] Feb, [address] [id number] [place] [address] [id number] Feb, [address] [id number] Feb, Muscle spasm M62.838 [address] [place] [id number] [place] [address] [id number] Feb, Itching L29.9 and Acute bilateral back pain, unspecified back location M54.9 [id number] [place] [address] [id number] Feb, History of pneumonia Z87.01 ; Cough R05 ; Radicular low back pain M54.10 ; Scoliosis of thoracolumbar spine, unspecified scoliosis type M41.9 ; Elevated liver enzymes R74.8 ; Influenza J11.1 ; Severe single current episode of major depressive disorder, without psychotic features F32.2 and Stressful life events affecting family and household Z63.79 [address] [place] [id number] [place] [address] [id number] Jan, Muscle spasm M62.838 [address] [place] [id number] [place] [address] [id number] Jan, Post-nasal drainage R09.82 ; Anxiety F41.9 and Cough R05 [address] [place] [address] [id number] Jan, Severe episode of recurrent major depressive disorder, without psychotic features F33.[address] [place] [address] [id number] Jan, Muscle spasm M62.838 [address] [place] [id number] [place] [address] [id number] Jan, Acute recurrent maxillary sinusitis J01.01 and Breast tenderness in female N64.4 [facility] [id number], [place] [id number] Nov, [address] [place] [id number] [place] [address] [id number] Nov, [facility] [id number] [place] [address] [id number] Nov, Radicular low back pain M54.10 and Muscle spasm M62.838 [facility] [id number] [place] [address] [id number] Nov, [address] [place] [address] [id number] Nov, Viral disease B34.9 ; Fever, unspecified fever cause R50.9 ; Other fatigue R53.83 and Other malaise R53.[address] [place] [address] [id number] Nov, Thyroid nodule E04.1 [id number] [place] [address] [id number] Nov, Severe episode of recurrent major depressive disorder, without psychotic features F33.[address] [place] [address] [id number] Nov, Acute nasopharyngitis J00 [address] [place] [address] [id number] Oct, Scoliosis of thoracolumbar spine, unspecified scoliosis type M41.9 ; Muscle spasm M62.838 ; Thyroid nodule E04.1 ; Pain in thoracic spine M54.6 ; Other chronic pain G89.29 ; Cervicalgia M54.2 ; Radicular low back pain M54.10 ; Severe episode of recurrent major depressive disorder, without psychotic features F33.2 and High risk medication use Z79.899 [facility] [address]00565100[place] 512[address]25- [address] Oct, [facility] [address] [id number], [place] [id number] Sep, Scoliosis of thoracolumbar spine, unspecified scoliosis type M41.9 ; Muscle spasm M62.838 ; Thyroid nodule E04.1 ; Pain in thoracic spine M54.6 ; Other chronic pain G89.29 ; Cervicalgia M54.2 ; Controlled substance agreement signed Z79.899 ; Vaginal yeast infection B37.3 and Radicular low back pain M54.10 [facility] [address] [place] [address] [id number] Sep, Scoliosis of thoracolumbar spine, unspecified scoliosis type M41.9 and Muscle spasm M62.838 [id number] [place] [address] [id number] Sep, Severe episode of recurrent major depressive disorder, without psychotic features F33.[address] [id number] Aug, Severe episode of recurrent major depressive disorder, without psychotic features F33.2 ; Thyroid nodule E04.1 ; Constipation, chronic K59.09 and Non morbid obesity due to excess calories E66.09 [id number] [place] [address] [id number] Aug, Non morbid obesity due to excess calories E66.09 and Thyroid nodule E04.1 [id number] [place] [address] [id number] Aug, [address] [id number] Jul, Severe episode of recurrent major depressive disorder, without psychotic features F33.2 ; Thyroid nodule E04.1 ; Constipation, chronic K59.09 and Non morbid obesity due to excess calories E66.09 [address] [place] [id number] [place] [address] [id number] June, Sore throat J02.9 and Major depressive disorder, single episode, unspecified F32.9 [facility] [address] [address] May, [facility] [address] [address]- [address] May, [facility] [address] [address]- 6[address] 14 Mar, 2013 [facility] [address] [id number] [place] [address]- 5[address] 14 Mar, 2013 [facility] [address] [id number] [place] [address]- 1826 Mar, [facility] [address] [id number] [place] [address]- 8906 Mar, [facility] [address] [id number] [place] [address]- 9352 Jan, [facility] [address] [id number] [place] [address]- 2009 Jan, [facility] [address] [id number] [place] [address]- 1187 Jan, [facility] [address] [id number] [place] [address]- 7374 Jan, [facility] [address] [id number] [place] [address]- 4476 Jan, [facility] [address] [id number] [place] [address]- 0489 Jan, [facility] [address] [facility] [id number] [place] [address]- 3738 Jan, [facility] [address] [id number] [place] [address]- 0738 Jan, [facility] [place] [facility] [address] [id number] [place] [address]- 5092 Dec, [facility] [place] [facility] [address] [id number] [place] [address]- 0984 Dec, [facility] [place] [facility] [address] [id number] [place] [address]- 9422 Apr, [facility] [place] [facility] [address] [facility] [id number] [place] [address]- 5481 Jan, [facility] [place] [facility] [address] [id number] [place] [address]- 2414 Jan, [facility] [place] [facility] [address] [id number] [place] [address]- 8168 Dec, [facility] [place] [facility] [address] [id number] [place] [address]- 5589 Dec, [facility] [place] [facility] [address] [id number] [place] [address]- 0360 Nov, [facility] [place] [facility] [address] [id number] [place] [address]- 6994 Nov, [facility] [place] [facility] [address] [id number] [place] [address]- 6891 Sep, [facility] [place] [facility] [address] [facility] [id number] [place] [address]- 0172 Sep, [facility] [place] [address] [facility] [id number], [place] [id number] Sep, [facility] [address] [facility] [id number], [place] [id number] Sep, [facility] [place] [facility] [address] [facility] [id number] [place] [address]- 7599 Sep, [facility] [place] [facility] [address] [facility] [id number] [place] [address]- 84[address] Sep, [facility] [place] [address] [id number], [place] [id number] Aug, [facility] [place] [facility] [address] [id number] [place] [address] Aug, [facility] [place] [facility] [address] [id number] [place] [address] Aug, [facility] [place] [facility] [address] [facility] [id number] [place] [address] Aug, [facility] [address] [facility] [id number] [id number] Jul, [facility] [place] [facility] [address] [id number] [place] [address] 28 Jul, 2011 [facility] [address] [id number] [place] [address] Jul, [facility] [place] [facility] [address] [id number] [place] [address] Jul, [facility] [address] [id number] [place] [address] May, [facility] [place] [facility] [address] [id number] [place] [address] Feb, [facility] [address] [facility] [id number] [place] [address] Jan, [facility] [place] [facility] [address] [facility] [id number] [place] [address] Jan, [facility] [place] [facility] [address] [facility] [id number] [place] [address] Dec, [facility] [place] [facility] [address] [facility] [id number] [place] [address] Dec, [facility] [place] [facility] [address] [facility] [id number] [place] [address] Dec, [facility] [place] [facility] [address] [facility] [id number] [place] [address] Nov, [facility] [place] [facility] [address] [facility] [id number] [place] [address] Nov, [facility] [place] [facility] [address] [facility] [id number] [place] [address] Sep, [facility] [place] [facility] [address] [id number] [place] [address] Jul, [facility] [place] [facility] [address] [facility] [id number] [place] [address] Mar, [facility] [place] [facility] [address] [facility] [id number] [place] [address] Nov, [facility] [address] [facility] [id number] [place] [id number] Nov, IMMUNIZATIONS No Known Immunizations SOCIAL HISTORY Never Assessed REASON FOR VISIT Pain management (chronic) , Pt restarted lexapro and zanaflex back at request [facility] PASCAL PLAN OF CARE Activity Details Follow Up 3 Months and pending referral and as neeced Reason: VITAL SIGNS Height 64 in 2017-08-21 Weight 174.8 lbs 2017-08-21 Temperature 97 degrees Fahrenheit 2017-08-21 Heart Rate 80 bpm 2017-08-21 Respiratory Rate 16 2017-08-21 BMI 30.00 kg/m2 2017-08-21 Blood pressure systolic 122 mmHg 2017-08-21 Blood pressure diastolic 78 mmHg 2017-08-21 MEDICATIONS Medication Instructions Dosage Frequency Start Date End Date Duration Status Lisinopril 10 MG 10 MG PO DAILY@0900 Active Lexapro 20 MG Orally Once a day 0.5 tablet 24h Active Diazepam 5 mg Orally Once a day for 7 days then every other day for 7 days, then every 3rd day then stop when script is out 1 tablet as needed 28 days Active Zanaflex 4 MG Orally Three times a day, as needed 1 tablet as needed Active Womens Multivitamin - Active BuSpar 5 mg Orally Three times a day (start with twice per day for the first week) 1 tablet Jul, Active Zofran 8 MG Orally 3 times a day as needed for nausea 1 tablet May, 0 days Active Cholecalciferol 2000 UNIT Orally Once a day 1 capsule 24h Active Fiber Adult Gummies 2 GM Active Hydrocodone-Acetaminophen 5-325 MG Orally Once a day 1 tablet as needed 24h 11 Jul, 2017 Active Ibuprofen 200 MG Orally Three times a day 4 tablets as needed 8h 25 Nov, 2016 Active RESULTS No Results PROCEDURES No Known procedures INSTRUCTIONS MEDICATIONS ADMINISTERED No Known Medications MEDICAL (GENERAL) HISTORY Type Description Date Medical History Fibromyalgia Medical History Chronic Consipation Medical History 08/16/16 [facility] general surgery center, Dr. Jimenez, hemorrhage [...] Medical History MRI- Brain 05/29/2017 Medical History [place] Spotted Tick Fever Medical History Ebstein Feng Virus Surgical History hysterectomy, total with unilateral salpingo-oophorectomy ( USO) Surgical History cholecystectomy Surgical History tonsillectomy and adenoidectomy Surgical History hemorrhoidectomy Surgical History EGD Surgical History colonoscopy 08/25/16 Hospitalization History fever, HTN, abnormal head [facility] 05/28/17
--- OUTSIDE RECORDS SUMMARY | 2018-04-29 19:38 | XMS REPORT | Continuity of Care Document ---
Author Author [facility] [place] Address Unknown Phone Unavailable Allergies Active Description Code Type Severity Reaction Onset Reported/Identified Relationship to Patient Clinical Status Yes No Known Drug Allergies [id number] Drug Allergy Unknown N/A 01/02/2018 Medications There is no data. Problems Date [...] V65.3 Dietary Counseling Pertaining To Obesity 05/26/2011 RIVREA DO, BETH K V69.0 being sedentary 05/26/2011 RIVERA DO, BETH K V65.3 Dietary Counseling Pertaining To Obesity 05/26/2011 RIVERA DO, BETH K V69.0 being sedentary 05/26/2011 RIVERA DO, BETH K V65.3 Dietary Counseling Pertaining To Obesity 05/26/2011 RIVERA DO, BETH K V69.0 being sedentary 08/09/2011 311 DEPRESSION 08/09/2011 338.29 CHRONIC PAIN 08/09/2011 401.9 ESSENTIAL HYPERTENSION 08/09/2011 EATON WEB ASSISTANTBALA L 311 DEPRESSION 08/09/2011 EATON WEB ASSISTANT, BALA L 338.29 CHRONIC PAIN 08/09/2011 EATON WEB ASSISTANT, BALA L 401.9 ESSENTIAL HYPERTENSION 08/09/2011 311 [...] Hemorrhoids Nos 09/02/2011 578.1 Hematochezia 09/02/2011 V72.31 Service Supervisor Exam, Routine 09/02/2011 BALA BIRD APRN L 455.6 Hemorrhoids Nos 09/02/2011 EATLINDSAY WEB ASSISTANTBALA Ruby L 578.1 Hematochezia 09/02/2011 EATLINDSAY WEB ASSISTANTBALA Ruby L V72.31 Service Supervisor Exam, Routine 09/02/2011 455.6 Hemorrhoids Nos 09/02/2011 578.1 Hematochezia 09/02/2011 V72.31 Service Supervisor Exam, Routine 09/02/2011 RIVERA DO, BETH K 455.6 Hemorrhoids Nos 09/02/2011 RIVERA DO, BETH K 578.1 Hematochezia 09/02/2011 RIVERA DO, BETH K V72.31 Service Supervisor Exam, Routine 09/02/2011 RIVERA DO, BETH K 455.6 Hemorrhoids Nos 09/02/2011 RIVERA DO, BETH K 578.1 Hematochezia 09/02/2011 RIVERA DO, BETH K V72.31 Service Supervisor Exam, Routine 09/02/2011 RIVERA DO, BETH K 455.6 Hemorrhoids Nos 09/02/2011 RIVERA DO, BETH K 578.1 Hematochezia 09/02/2011 RIVERA DO, BETH K V72.31 Service Supervisor Exam, Routine 10/13/2011 NODX NO DIAGNOSIS 10/13/2011 [...] 786.05 SHORTNESS OF BREATH 08/10/2013 MACIEJ BLEVINS WEB ASSISTANT Ot 311 DEPRESSIVE DISORDER NEC 08/10/2013 MACIEJ BLEVINS WEB ASSISTANT Ot 780.79 OTH MALAISE FATIGUE 08/06/2016 OWEN [...] K62.5 HEMORRHAGE OF ANUS AND RECTUM 08/25/2016 MLEANIE ACOSTA DO B Ot K62.89 OTHER SPECIFIED [...] RESULTS OF LIVER FUNCTION STUDI 02/16/2017 CORBY AYAH K Ot Z87.19 PERSONAL HISTORY [...] PAIN 10/13/2017 JOE PINTO MD, Ot Z79.4 [facility] (CURRENT) USE OF INSULIN 10/13/2017 JOE PINTO [...] PAIN 10/17/2017 JOE PINTO MD Ot Z79.4 [facility] 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 PROFESSOR (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) USE OF INSULIN 10/17/2017 JOE PINTO MD, Ot Z82.49 FAMILY HX OF ISCHEM HEART DIS AND OTH DI 10/17/2017 JOE PINTO MD, Ot Z87.19 PERSONAL HISTORY OF OTHER DISEASES OF TH 10/17/2017 JOE PINTO MD, Ot Z90.710 ACQUIRED ABSENCE OF BOTH CERVIX AND UTER 10/17/2017 JOE PINTO MD Ot Z90.89 ACQUIRED ABSENCE OF OTHER ORGANS 10/18/2017 MELANIE ACOSTA DO Ot Z01.818 ENCOUNTER FOR OTHER PREPROCEDURAL EXAMIN 10/18/2017 MELANIE ACOSTA DO Ot F32.9 MAJOR DEPRESSIVE DISORDER, SINGLE EPISOD 10/18/2017 MELANIE ACOSTA DO Ot F41.9 ANXIETY DISORDER, UNSPECIFIED 10/18/2017 MELANIE ACOSTA DO Ot I10 ESSENTIAL (PRIMARY) HYPERTENSION 10/18/2017 MELANIE ACOSTA DO Ot K21.9 GASTRO-ESOPHAGEAL REFLUX DISEASE WITHOUT 10/18/2017 MELANIE ACOSTA DO Ot K29.50 UNSPECIFIED CHRONIC GASTRITIS WITHOUT BL 10/18/2017 MELANIE ACOSTA DO Ot K44.9 DIAPHRAGMATIC HERNIA WITHOUT OBSTRUCTION 10/20/2017 MELANIE ACOSTA DO Ot R19.8 OTH SYMPTOMS AND SIGNS INVOLVING THE DGS 10/20/2017 MELANIE ACOSTA DO Ot F32.9 MAJOR DEPRESSIVE DISORDER, SINGLE EPISOD 10/20/2017 MELANIE ACOSTA DO Ot F41.9 ANXIETY DISORDER, UNSPECIFIED 10/20/2017 MELANIE ACOSTA DO Ot I10 ESSENTIAL (PRIMARY) HYPERTENSION 10/20/2017 DELALEJANDRINA DO, MELANIE B Ot K21.9 GASTRO-ESOPHAGEAL REFLUX DISEASE WITHOUT 10/20/2017 DELMAN DO, MELANIE B Ot K29.50 UNSPECIFIED CHRONIC GASTRITIS WITHOUT BL 10/20/2017 DELMAN DO, MELANIE B Ot K44.9 DIAPHRAGMATIC HERNIA WITHOUT OBSTRUCTION 10/25/2017 DELMAN DO, MELANIE B Ot F32.9 MAJOR DEPRESSIVE DISORDER, SINGLE EPISOD 10/25/2017 DELMAN DO, MELANIE B Ot F41.9 ANXIETY DISORDER, UNSPECIFIED 10/25/2017 DELMAN DO, MELANIE B Ot I10 ESSENTIAL (PRIMARY) HYPERTENSION 10/25/2017 DELMAN DO, MELANIE B Ot K21.9 GASTRO-ESOPHAGEAL REFLUX DISEASE WITHOUT 10/25/2017 DELMAN DO, MELANIE B Ot K29.50 UNSPECIFIED CHRONIC GASTRITIS WITHOUT BL 10/25/2017 DELMAN DO, MELANIE B Ot K44.9 DIAPHRAGMATIC HERNIA WITHOUT OBSTRUCTION 10/31/2017 DELALEJANDRINA DO, MELANIE B Ot F32.9 MAJOR DEPRESSIVE DISORDER, SINGLE EPISOD 10/31/2017 DELALEJANDRINA DO, MELANIE B Ot F41.9 ANXIETY DISORDER, UNSPECIFIED 10/31/2017 DELMAN DO, MELANIE B Ot I10 ESSENTIAL (PRIMARY) HYPERTENSION 10/31/2017 DELMAN DO, MELANIE B Ot K21.9 GASTRO-ESOPHAGEAL REFLUX DISEASE WITHOUT 10/31/2017 DELMAN DO, MELANIE B Ot K29.50 UNSPECIFIED CHRONIC GASTRITIS WITHOUT BL 10/31/2017 DELALEJANDRINA DO, MELANIE B Ot K44.9 DIAPHRAGMATIC HERNIA WITHOUT OBSTRUCTION 11/01/2017 DAVE DO, MELANIE B Ot R19.8 OTH SYMPTOMS AND SIGNS INVOLVING THE DGS 11/11/2017 DAVE DO, MELANIE B Ot A04.72 ENTEROCOLITIS D/T CLOSTRIDIUM DIFFICILE, 11/11/2017 DELMAN DO, MELANIE B Ot E46 UNSPECIFIED PROTEIN-CALORIE MALNUTRITION 11/11/2017 DELMAN DO, MELANIE B Ot E87.6 HYPOKALEMIA 11/11/2017 DELALEJANDRINA DO, MELANIE B Ot R10.84 GENERALIZED ABDOMINAL PAIN 11/11/2017 DELMAN DO, MELANIE B Ot R51 HEADACHE 11/20/2017 DELMAN DO, MELANIE B Ot R19.8 OTH SYMPTOMS AND SIGNS INVOLVING THE DGS 12/29/2017 OWEN ADORNO Ot E04.1 NONTOXIC SINGLE THYROID NODULE 12/29/2017 OWEN ADORNO Ot N83.201 UNSPECIFIED OVARIAN CYST, RIGHT SIDE 12/29/2017 OWEN ADORNO Ot R59.1 GENERALIZED ENLARGED LYMPH NODES 01/02/2018 MELANIE ACOSTA DO Ot R19.8 OTH SYMPTOMS AND SIGNS INVOLVING THE DGS 01/02/2018 MELANIE ACOSTA DO Ot Z01.818 ENCOUNTER FOR OTHER PREPROCEDURAL EXAMIN 01/03/2018 OWEN ADORNO Ot E04.1 NONTOXIC SINGLE THYROID NODULE 01/03/2018 OWEN ADORNO Ot N83.201 UNSPECIFIED OVARIAN CYST, RIGHT SIDE 01/03/2018 OWEN ADORNO Ot R59.1 GENERALIZED ENLARGED LYMPH NODES 01/04/2018 CHERELLE OSULLIVAN, VALERIO Richardson Ot A04.72 ENTEROCOLITIS D/T CLOSTRIDIUM DIFFICILE, 01/04/2018 VALERIO VILLARREAL MD Ot F32.9 MAJOR DEPRESSIVE DISORDER, SINGLE EPISOD 01/04/2018 VALERIO VILLARREAL MD Ot F41.9 ANXIETY DISORDER, UNSPECIFIED 01/04/2018 VALERIO VILLARREAL MD Ot I10 ESSENTIAL (PRIMARY) HYPERTENSION 01/04/2018 VALERIO VILLARREAL MD Ot R11.2 NAUSEA WITH VOMITING, UNSPECIFIED 01/04/2018 VALERIO VILLARREAL MD Ot R42 DIZZINESS AND GIDDINESS 01/04/2018 VALERIO VILLARREAL MD Ot Z80.3 FAMILY HISTORY OF MALIGNANT NEOPLASM OF 01/04/2018 VALERIO VILLARREAL MD Ot Z82.49 FAMILY HX OF ISCHEM HEART DIS AND OTH DI 01/04/2018 VALERIO VILLARREAL MD Ot Z87.19 PERSONAL HISTORY OF OTHER DISEASES OF TH 01/04/2018 VALERIO VILLARREAL MD Ot Z90.710 ACQUIRED ABSENCE OF BOTH CERVIX AND UTER 01/04/2018 VALERIO VILLARREAL MD Ot Z90.89 ACQUIRED ABSENCE OF OTHER ORGANS 01/05/2018 MELANIE ACOSTA DO Ot A04.71 ENTEROCOLITIS DUE TO CLOSTRIDIUM DIFFICI 01/05/2018 DELMAN DO, MELANIE B Ot F32.9 MAJOR DEPRESSIVE DISORDER, SINGLE EPISOD 01/05/2018 DAVE DO, MELANIE B Ot F41.9 ANXIETY DISORDER, UNSPECIFIED 01/05/2018 DELALEJANDRINA DO, MELANIE B Ot I10 ESSENTIAL (PRIMARY) HYPERTENSION 01/05/2018 DAVE DO, MELANIE B Ot K21.9 GASTRO-ESOPHAGEAL REFLUX DISEASE WITHOUT 01/05/2018 DELMAN DO, MELANIE B Ot Z79.899 OTHER [facility] HISTORY PROFESSOR (CURRENT) DRUG THERAPY 01/05/2018 DAVE DO, MELANIE B Ot Z80.1 FAMILY HISTORY OF MALIG NEOPLASM OF TRAC 01/05/2018 DAVE DO, MELANIE B Ot Z80.3 FAMILY HISTORY OF MALIGNANT NEOPLASM OF 01/15/2018 DAVE DO, MELANIE B Ot A04.71 ENTEROCOLITIS DUE TO CLOSTRIDIUM DIFFICI 01/15/2018 DAVE DO, MELANIE B Ot F32.9 MAJOR DEPRESSIVE DISORDER, SINGLE EPISOD 01/15/2018 DAVE MCKEE, MELANIE B Ot F41.9 ANXIETY DISORDER, UNSPECIFIED 01/15/2018 DAVE DO, MELANIE B Ot I10 ESSENTIAL (PRIMARY) HYPERTENSION 01/15/2018 DAVE MCKEE, MELANIE B Ot K21.9 GASTRO-ESOPHAGEAL REFLUX DISEASE WITHOUT 01/15/2018 DELALEJANDRINA DO, MELANIE B Ot Z79.899 OTHER [facility] (CURRENT) DRUG THERAPY 01/15/2018 DAVE MCKEE, MELANIE B Ot Z80.1 FAMILY HISTORY OF MALIG NEOPLASM OF TRAC 01/15/2018 DAVE MCKEE, MELANIE B Ot Z80.3 FAMILY HISTORY OF MALIGNANT NEOPLASM OF 01/18/2018 OWEN ADORNO Ot E04.1 NONTOXIC SINGLE THYROID NODULE 01/18/2018 OWEN ADORNO Ot N83.201 UNSPECIFIED OVARIAN CYST, RIGHT SIDE 01/18/2018 OWEN ADORNO Ot R59.0 LOCALIZED ENLARGED LYMPH NODES 01/25/2018 DAVE MCKEE, MELANIE B Ot A04.71 ENTEROCOLITIS DUE TO CLOSTRIDIUM DIFFICI 01/25/2018 DAVE DO, MELANIE B Ot F32.9 MAJOR DEPRESSIVE DISORDER, SINGLE EPISOD 01/25/2018 DELALEJANDRINA DO, MELANIE B Ot F41.9 ANXIETY DISORDER, UNSPECIFIED 01/25/2018 DELALEJANDRINA DO, MELANIE B Ot I10 ESSENTIAL (PRIMARY) HYPERTENSION 01/25/2018 IZABEL ACOSTA DOSUSAN Leonard Ot K21.9 GASTRO-ESOPHAGEAL REFLUX DISEASE WITHOUT 01/25/2018 IZABEL ACOSTA DOSUSAN Leonard Ot Z79.899 OTHER [facility] (CURRENT) DRUG THERAPY 01/25/2018 IZABEL ACOSTA DOIC B Ot Z80.1 FAMILY HISTORY OF MALIG NEOPLASM OF TRAC 01/25/2018 DAVE MCKEE MELANIE B Ot Z80.3 FAMILY HISTORY OF MALIGNANT NEOPLASM OF 01/31/2018 OWEN ADORNO Ot R59.0 LOCALIZED ENLARGED LYMPH NODES 02/04/2018 OWEN ADORNO Ot R59.0 LOCALIZED ENLARGED LYMPH NODES 03/18/2018 DAVE MCKEEMELANIE Ot R19.7 DIARRHEA, UNSPECIFIED 03/19/2018 DAVE MCKEEMELANIE B Ot R19.7 DIARRHEA, UNSPECIFIED 03/28/2018 RAMIREZ OSULLIVAN, TONY Ot Z09 ENCNTR FOR F/U EXAM AFT TRTMT FOR COND O 03/28/2018 RAMIREZ OSULLIVAN, TONY Ot Z86.19 PERSONAL HISTORY OF OTHER INFECTIOUS AND 04/13/2018 RAMIREZ OSULLIVAN, TONY Ot Z09 ENCNTR FOR F/U EXAM AFT TRTMT FOR COND O 04/13/2018 RAMIREZ OSULLIVAN, TONY Ot Z86.19 PERSONAL HISTORY OF OTHER INFECTIOUS AND Procedures Code Description Performed By Performed On BLOOD PRESSURE CHECK 10/13/2011 BLOOD PRESSURE CHECK 01/18/2012 53409 STREP A (IN-HOUSE) 02/09/2012 11685 NO CHARGE 12/21/2012 90189 THERAPUTIC INJ SQ/IM 02/08/2013 J3420 B12 VITAMIN INJECTION 02/08/2013 11068 ROUTINE VENIPUNCTURE 02/08/2013 27920 CMP 02/08/2013 01295 VITAMIN D 25-HYDROXY (D2,D3 , TOTAL) 02/08/2013 74643 VIT B 12 02/08/2013 46897 CBC 02/08/2013 THYANA THYROID ANALYZER 02/08/2013 [id number] INSPECTION OF LOWER INTESTINAL TRACT, EN 11/09/2017 Results Test Result Range Complete blood count [...] - 05/16/17 15:02 ABSOLUTE NEUTROPHILS 4366 cells/uL 3414-5643 ABSOLUTE MONOCYTES 252 cells/uL 200-950 ABSOLUTE EOSINOPHILS [...] INFLUENZA A AND B ANTIGENS BY IA NRG Bacterial throat culture - 05/28/17 16:44 Bacterial [...] Rickettsia rickettsii IgG antibody assay (units/volume) <1:16 Gower spotted fever panel < <1:10 Francisella tularensis antibody assay <1:20 NRG LYME AB G M 0.10 % 0.00-0.89 Interpretation of Lyme disease antibody assay Negative Negative Bartonella antibody assay - 05/28/17 18:05 Serum Bartonella henselae IgM antibody detection <1:10 < 1:10 Serum Bartonella henselae IgG antibody assay (units/volume) < <1:16 Serum Bartonella jean IgG antibody detection <1:16 < 1:16 Serum Bartonella jean IgM antibody assay (units/volume) < <1:10 Cerebrospinal [...] 07/11/17 12:06 RMSF IGG TITER 1:64 titer NR [id number] - 07/12/17 16:44 [id number] Negative Negative Serum Ted Feng virus early [...] Serum ragweed IgE antibody assay Positive NRG [id number] - 10/16/17 15:00 C DIFFICILE AG + TOXIN A/B. - 10/16/17 15:00 FREE TEXT ENTRY 2 POSITIVE FOR GDH ANTIGEN NRG FREE TEXT ENTRY 3 NEGATIVE FOR TOXINS A AND B NRG RESULTS INDETERMINANT; MOLECULAR TEST TO FOLLOW NRG Stool bacteria identification by culture - 10/16/17 15:00 Complete urinalysis with reflex to culture - 11/06/17 15:00 Urine color determination YELLOW NRG Urine clarity determination CLEAR NRG Urine pH measurement by test strip 7 5-9 Specific gravity of urine by test strip 1.005 1.016- 1.022 Urine protein assay by test [...] count by microscopy (number/high power field ) RARE NRG Bacteria detection in urine sediment by light microscopy FEW NRG Squamous epithelial cells detection in urine sediment by light microscopy 5-10 NRG Crystals detection in urine sediment by light microscopy NONE NRG Casts detection in urine sediment by light microscopy NONE NRG Mucus detection in urine sediment by light microscopy NEGATIVE NRG Complete urinalysis with reflex to culture NO NRG Complete blood count (CBC) with automated white blood cell (WBC) differential - 11/07/17 06:26 Blood leukocytes automated count (number/volume) 4.9 10*3/uL 4.3-11.0 Blood erythrocytes automated count (number/volume) 3.85 10*6/uL 4.35-5.85 Venous blood hemoglobin measurement (mass/volume) 12.0 g/dL 11.5-16.0 Blood hematocrit (volume fraction) 34 % 35-52 Automated erythrocyte mean corpuscular volume 89 [foz_us] 80-99 Automated erythrocyte mean corpuscular hemoglobin (mass per erythrocyte) 31 pg 25-34 Automated erythrocyte mean corpuscular hemoglobin concentration measurement ( mass/volume) 35 g/dL 32-36 Automated erythrocyte distribution width ratio 11.7 % 10.0-14.5 Automated blood platelet count (count/volume) 164 10*3/uL 130-400 Automated blood platelet mean volume measurement 11.5 [foz_us] 7.4-10.4 Automated blood neutrophils/100 leukocytes 60 % 42-75 Automated blood lymphocytes/100 leukocytes 30 % 12-44 Blood monocytes/100 leukocytes 8 % 0-12 Automated blood eosinophils/100 leukocytes 1 % 0-10 Automated blood basophils/100 leukocytes 1 % 0-10 Blood neutrophils automated count (number/volume) 2.9 10*3 1.8-7.8 Blood lymphocytes automated count (number/volume) 1.5 10*3 1.0-4.0 Blood monocytes automated count (number/volume) 0.4 10*3 0.0-1.0 Automated eosinophil count 0.1 10*3/uL 0.0-0.3 Automated blood basophil count (count/volume) 0.0 10*3/uL 0.0-0.1 Comprehensive metabolic panel - 11/07/17 06:26 Serum or plasma sodium measurement (moles/volume) 141 mmol/L 135-145 Serum or plasma potassium measurement (moles/volume) 4.3 mmol/L 3.6-5.0 Serum or plasma chloride measurement (moles/volume) 110 mmol/L 98-107 Carbon dioxide 24 mmol/L 21-32 Serum or plasma anion gap determination (moles/volume) 7 mmol/L 5-14 Serum or plasma urea nitrogen measurement (mass/volume) 4 mg/dL 7-18 Serum or plasma creatinine measurement (mass/volume) 0.64 mg/dL 0.60-1.30 Serum or plasma urea nitrogen/creatinine mass ratio 6 NRG Serum or plasma creatinine measurement with calculation of estimated glomerular filtration rate > NRG Serum or plasma glucose measurement (mass/volume) 90 mg/dL 70-105 Serum or plasma calcium measurement (mass/volume) 8.6 mg/dL 8.5-10.1 Serum or plasma total bilirubin measurement (mass/volume) 0.6 mg/dL 0.1-1.0 Serum or plasma alkaline phosphatase measurement (enzymatic activity/volume) 40 U/L 40-136 Serum or plasma aspartate aminotransferase measurement (enzymatic activity/ volume) 17 U/L 5-34 Serum or plasma alanine aminotransferase measurement (enzymatic activity/volume ) 15 U/L 0-55 Serum or plasma protein measurement (mass/volume) 5.6 g/dL 6.4-8.2 Serum or plasma albumin measurement (mass/volume) 3.7 g/dL 3.2-4.5 CALCIUM CORRECTED 8.8 mg/dL 8.5-10.1 C DIFFICILE AG + TOXIN A/B. - 11/07/17 21:23 RESULTS NEGATIVE FOR ANTIGEN AND TOXIN A/B NRG Complete blood count (CBC) with automated white blood cell (WBC) differential - 11/09/17 08:50 Blood leukocytes automated count (number/volume) 5.1 10*3/uL 4.3-11.0 Blood erythrocytes automated count (number/volume) 3.90 10*6/uL 4.35-5.85 Venous blood hemoglobin measurement (mass/volume) 12.3 g/dL 11.5-16.0 Blood hematocrit (volume fraction) 34 % 35-52 Automated erythrocyte mean corpuscular volume 87 [foz_us] 80-99 Automated erythrocyte mean corpuscular hemoglobin (mass per erythrocyte) 32 pg 25-34 Automated erythrocyte mean corpuscular hemoglobin concentration measurement ( mass/volume) 36 g/dL 32-36 Automated erythrocyte distribution width ratio 11.7 % 10.0-14.5 Automated blood platelet count (count/volume) 161 10*3/uL 130-400 Automated blood platelet mean volume measurement 10.5 [foz_us] 7.4-10.4 Automated blood neutrophils/100 leukocytes 67 % 42-75 Automated blood lymphocytes/100 leukocytes 24 % 12-44 Blood monocytes/100 leukocytes 8 % 0-12 Automated blood eosinophils/100 leukocytes 1 % 0-10 Automated blood basophils/100 leukocytes 0 % 0-10 Blood neutrophils automated count (number/volume) 3.4 10*3 1.8-7.8 Blood lymphocytes automated count (number/volume) 1.2 10*3 1.0-4.0 Blood monocytes automated count (number/volume) 0.4 10*3 0.0-1.0 Automated eosinophil count 0.1 10*3/uL 0.0-0.3 Automated blood basophil count (count/volume) 0.0 10*3/uL 0.0-0.1 Comprehensive metabolic panel - 11/09/17 08:50 Serum or plasma sodium measurement (moles/volume) 142 mmol/L 135-145 Serum or plasma potassium measurement (moles/volume) 3.5 mmol/L 3.6-5.0 Serum or plasma chloride measurement (moles/volume) 109 mmol/L 98-107 Carbon dioxide 24 mmol/L 21-32 Serum or plasma anion gap determination (moles/volume) 9 mmol/L 5-14 Serum or plasma urea nitrogen measurement (mass/volume) 2 mg/dL 7-18 Serum or plasma creatinine measurement (mass/volume) 0.61 mg/dL 0.60-1.30 Serum or plasma urea nitrogen/creatinine mass ratio 3 NRG Serum or plasma creatinine measurement with calculation of estimated glomerular filtration rate > NRG Serum or plasma glucose measurement (mass/volume) 95 mg/dL 70-105 Serum or plasma calcium measurement (mass/volume) 9.0 mg/dL 8.5-10.1 Serum or plasma total bilirubin measurement (mass/volume) 0.5 mg/dL 0.1-1.0 Serum or plasma alkaline phosphatase measurement (enzymatic activity/volume) 42 U/L 40-136 Serum or plasma aspartate aminotransferase measurement (enzymatic activity/ volume) 21 U/L 5-34 Serum or plasma alanine aminotransferase measurement (enzymatic activity/volume ) 20 U/L 0-55 Serum or plasma protein measurement (mass/volume) 6.0 g/dL 6.4-8.2 Serum or plasma albumin measurement (mass/volume) 4.1 g/dL 3.2-4.5 CALCIUM CORRECTED 8.9 mg/dL 8.5-10.1 C DIFFICILE AG + TOXIN A/B. - 12/19/17 08:15 CALL POSITIVES (F1 HELP) CALLED TO NANCY POON 12/19/17 11:05 BY Farhad GODOY [facility] SPECIAL CONTACT SPECIAL CONTACT PRECAUTIONS NEEDED [facility] RESULTS POSITIVE FOR ANTIGEN AND TOXIN A/B [facility] Complete blood count (CBC) with automated white blood cell (WBC) differential - 12/28/17 16:23 Blood leukocytes automated count (number/volume) 5.4 10*3/uL 4.3-11.0 Blood erythrocytes automated count (number/volume) 4.23 10*6/uL 4.35-5.85 Venous blood hemoglobin measurement (mass/volume) 12.9 g/dL 11.5-16.0 Blood hematocrit (volume fraction) 37 % 35-52 Automated erythrocyte mean corpuscular volume 87 [foz_us] 80-99 Automated erythrocyte mean corpuscular hemoglobin (mass per erythrocyte) 30 pg 25-34 Automated erythrocyte mean corpuscular hemoglobin concentration measurement ( mass/volume) 35 g/dL 32-36 Automated erythrocyte distribution width ratio 12.3 % 10.0-14.5 Automated blood platelet count (count/volume) 211 10*3/uL 130-400 Automated blood platelet mean volume measurement 10.6 [foz_us] 7.4-10.4 Automated blood neutrophils/100 leukocytes 57 % 42-75 Automated blood lymphocytes/100 leukocytes 33 % 12-44 Blood monocytes/100 leukocytes 8 % 0-12 Automated blood eosinophils/100 leukocytes 2 % 0-10 Automated blood basophils/100 leukocytes 1 % 0-10 Blood neutrophils automated count (number/volume) 3.1 10*3 1.8-7.8 Blood lymphocytes automated count (number/volume) 1.8 10*3 1.0-4.0 Blood monocytes automated count (number/volume) 0.4 10*3 0.0-1.0 Automated eosinophil count 0.1 10*3/uL 0.0-0.3 Automated blood basophil count (count/volume) 0.1 10*3/uL 0.0-0.1 Comprehensive metabolic panel - 12/28/17 16:23 Serum or plasma sodium measurement (moles/volume) 141 mmol/L 135-145 Serum or plasma potassium measurement (moles/volume) 3.9 mmol/L 3.6-5.0 Serum or plasma chloride measurement (moles/volume) 108 mmol/L 98-107 Carbon dioxide 23 mmol/L 21-32 Serum or plasma anion gap determination (moles/volume) 10 mmol/L 5-14 Serum or plasma urea nitrogen measurement (mass/volume) 9 mg/dL 7-18 Serum or plasma creatinine measurement (mass/volume) 0.64 mg/dL 0.60-1.30 Serum or plasma urea nitrogen/creatinine mass ratio 14 NRG Serum or plasma creatinine measurement with calculation of estimated glomerular filtration rate > NRG Serum or plasma glucose measurement (mass/volume) 89 mg/dL 70-105 Serum or plasma calcium measurement (mass/volume) 9.0 mg/dL 8.5-10.1 Serum or plasma total bilirubin measurement (mass/volume) 0.3 mg/dL 0.1-1.0 Serum or plasma alkaline phosphatase measurement (enzymatic activity/volume) 58 U/L 40-136 Serum or plasma aspartate aminotransferase measurement (enzymatic activity/ volume) 29 U/L 5-34 Serum or plasma alanine aminotransferase measurement (enzymatic activity/volume ) 37 U/L 0-55 Serum or plasma protein measurement (mass/volume) 6.9 g/dL 6.4-8.2 Serum or plasma albumin measurement (mass/volume) 4.4 g/dL 3.2-4.5 CALCIUM CORRECTED 8.7 mg/dL 8.5-10.1 Lipid 1996 panel - 12/28/17 16:23 Serum or plasma triglyceride measurement (mass/volume) 158 mg/dL <150 Serum or plasma cholesterol measurement (mass/volume) 162 mg/dL < 200 Serum or plasma cholesterol in HDL measurement (mass/volume) 47 mg/ dL 40-60 Cholesterol in LDL [mass/volume] in serum or plasma by direct assay 98 mg/dL 1-129 Serum or plasma cholesterol in VLDL measurement (mass/volume) 32 mg/ dL 5-40 THYROGLOBULIN PANEL - 12/28/17 16:23 Thyroglobulin [mass/volume] in serum or plasma 0.03 % 0.00-0.50 Serum or plasma folate measurement (mass/volume) - 12/28/17 16:23 Serum or plasma folate measurement (mass/volume) 10.3 % > =4.0 Serum iron and total iron binding capacity panel - 12/28/17 16:23 Serum or plasma iron measurement (mass/volume) 73 % 35- 180 Total iron binding capacity and transferrin saturation measurement 25 % 15-50 Iron binding capacity [mass/volume] in serum or plasma 294 % 280-380 UIBC (unsaturated iron binding capacity) 221 % 55-450 Serum or plasma ferritin measurement (mass/volume) 91.2 % 20.0-177.0 Cyanocobalamin measurement - 12/28/17 16:23 Vitamin B12 570 pg/mL 190-1100 VITAMIN D 25-HYDROXY - 12/28/17 16:23 VITAMIN D 25-HYDROXY (TOTAL) 25.9 % 30.0-100.0 [id number] - 12/28/17 16:23 Serum or plasma thyroperoxidase antibody assay (units/volume) 2.45 % 0.00-100.00 Complete blood count (CBC) with automated white blood cell (WBC) differential - 01/02/18 23:00 Blood leukocytes automated count (number/volume) 10.5 10*3/uL 4.3-11.0 Blood erythrocytes automated count (number/volume) 4.71 10*6/uL 4.35-5.85 Venous blood hemoglobin measurement (mass/volume) 14.3 g/dL 11.5-16.0 Blood hematocrit (volume fraction) 40 % 35-52 Automated erythrocyte mean corpuscular volume 86 [foz_us] 80-99 Automated erythrocyte mean corpuscular hemoglobin (mass per erythrocyte) 30 pg 25-34 Automated erythrocyte mean corpuscular hemoglobin concentration measurement ( mass/volume) 36 g/dL 32-36 Automated erythrocyte distribution width ratio 12.6 % 10.0-14.5 Automated blood platelet count (count/volume) 285 10*3/uL 130-400 Automated blood platelet mean volume measurement 10.5 [foz_us] 7.4-10.4 Automated blood neutrophils/100 leukocytes 71 % 42-75 Automated blood lymphocytes/100 leukocytes 18 % 12-44 Blood monocytes/100 leukocytes 9 % 0-12 Automated blood eosinophils/100 leukocytes 1 % 0-10 Automated blood basophils/100 leukocytes 1 % 0-10 Blood neutrophils automated count (number/volume) 7.4 10*3 1.8-7.8 Blood lymphocytes automated count (number/volume) 1.9 10*3 1.0-4.0 Blood monocytes automated count (number/volume) 1.0 10*3 0.0-1.0 Automated eosinophil count 0.1 10*3/uL 0.0-0.3 Automated blood basophil count (count/volume) 0.1 10*3/uL 0.0-0.1 Comprehensive metabolic panel - 01/02/18 23:00 Serum or plasma sodium measurement (moles/volume) 138 mmol/L 135-145 Serum or plasma potassium measurement (moles/volume) 3.7 mmol/L 3.6-5.0 Serum or plasma chloride measurement (moles/volume) 102 mmol/L 98-107 Carbon dioxide 23 mmol/L 21-32 Serum or plasma anion gap determination (moles/volume) 13 mmol/L 5-14 Serum or plasma urea nitrogen measurement (mass/volume) 10 mg/dL 7-18 Serum or plasma creatinine measurement (mass/volume) 0.83 mg/dL 0.60-1.30 Serum or plasma urea nitrogen/creatinine mass ratio 12 NRG Serum or plasma creatinine measurement with calculation of estimated glomerular filtration rate > NRG Serum or plasma glucose measurement (mass/volume) 105 mg/dL 70-105 Serum or plasma calcium measurement (mass/volume) 10.3 mg/dL 8.5-10.1 Serum or plasma total bilirubin measurement (mass/volume) 1.0 mg/dL 0.1-1.0 Serum or plasma alkaline phosphatase measurement (enzymatic activity/volume) 64 U/L 40-136 Serum or plasma aspartate aminotransferase measurement (enzymatic activity/ volume) 42 U/L 5-34 Serum or plasma alanine aminotransferase measurement (enzymatic activity/volume ) 63 U/L 0-55 Serum or plasma protein measurement (mass/volume) 8.3 g/dL 6.4-8.2 Serum or plasma albumin measurement (mass/volume) 5.3 g/dL 3.2-4.5 Magnesium - 01/02/18 23:00 Magnesium 2.5 mg/dL 1.8-2.4 Serum ragweed IgE antibody assay - 03/26/18 14:45 Serum ragweed IgE antibody assay Negative NRG Encounters ACCT No. Visit Date/Time Discharge Status Pt. Type Provider Facility Loc./Unit Complaint [id number] 03/28/2013 14:16:00 03/28/2013 23:59:59 CLS Outpatient BETH RIVERA DO [id number] 02/08/2013 08:55:00 02/08/2013 23:59:59 CLS Outpatient BETH RIVERA DO [id number] 12/21/2012 15:45:00 12/21/2012 23:59:59 CLS Outpatient BETH RIVERA DO [id number] 05/03/2012 11:46:00 05/03/2012 23:59:59 CLS Outpatient [id number] 02/09/2012 11:49:00 02/09/2012 23:59:59 CLS Outpatient BLAA BIRD APRN [id number] 01/18/2012 15:00:00 01/18/2012 23:59:59 CLS Outpatient [id number] 03/26/2018 10:54:00 03/26/2018 23:59:59 CLS Outpatient RAMIREZ OSULLIVAN, TONY [facility] LAB HISTORY OF CLOSTRIDIUM DIFFICILE INFECTION [id number] 03/19/2018 00:10:00 03/19/2018 23:59:59 CLS Preadmit DAVE MCKEEMELANIE B [facility] LAB DIARRHEA [id number] 12/18/2017 09:34:00 03/18/2018 00:01:00 DIS Outpatient IZABEL ACOSTA DOIC B [facility] LAB DIARRHEA [id number] 01/29/2018 12:52:00 01/29/2018 23:59:59 CLS Outpatient OWEN ADORNO [facility] RAD LEFT CERVICAL LYMPADENOPATHY [id number] 01/17/2018 11:03:00 01/17/2018 23:59:59 CLS Outpatient OWEN ADORNO [facility] RAD OVARIAN CYST [id number] 01/03/2018 12:42:00 01/03/2018 23:59:59 CLS Outpatient DAVE MCKEEMELANIE [facility] ENDO C-DIFF [id number] 01/02/2018 22:35:00 01/03/2018 00:41:00 DIS Outpatient CHERELLE OSULLIVAN, VALERIO Richardson [facility] ER VOMITTING [id number] 01/02/2018 06:39:00 01/02/2018 12:36:00 DIS Outpatient DAVE MELANIE MCKEE [facility] PREOP COLONOSCOPY [id number] 12/28/2017 15:50:00 12/28/2017 23:59:59 CLS Outpatient OWEN ADORNO [facility] LAB R THYROID NODULE [id number] 12/28/2017 14:33:00 12/28/2017 23:59:59 CLS Preadmit OWEN ADORNO [facility] RAD THYROID NODULE, LYMPHADENOPATHY [id number] 11/20/2017 00:53:00 11/20/2017 23:59:59 CLS Preadmit DAVE MELANIE MCKEE B [facility] LAB DIARRHEA [id number] 11/06/2017 11:55:00 11/11/2017 12:50:00 DIS Inpatient KALENALEJANDRINA MELANIE MCKEE B [facility] 4TH CDIFF [id number] 10/16/2017 11:59:00 10/20/2017 00:01:00 DIS Outpatient MELANIE ACOSTA DO B [facility] LAB DIARRHEA [id number] 10/18/2017 12:07:00 10/18/2017 15:20:00 DIS Outpatient IZABEL ACOSTA DOIC B [facility] ENDO NAUSEA/DIARRHEA/ABD PAIN [id number] 10/17/2017 05:34:00 10/17/2017 13:39:00 DIS Outpatient IZABEL ACOSTA DOIC B [facility] PREOP EGD [id number] 10/13/2017 16:35:00 10/13/2017 19:58:00 DIS Emergency JOE PINTO MD [facility] ER STOMACH PAIN/NAUSEA/ DIARRHEA/FEVER [id number] 09/14/2017 10:05:00 09/14/2017 23:59:59 CLS Outpatient DEGFFEMICHAEL CHRISTIANSON [facility] RAD AT RISK FOR BONE DENSITY LOSS [id number] 09/11/2017 14:08:00 09/11/2017 23:59:59 CLS Preadmit DEGFFEMICHAEL CHRISTIANSON [facility] RAD SCREENING [id number] 07/12/2017 16:30:00 07/12/2017 23:59:59 CLS Outpatient EUGENEFFEMICHAEL CHRISTIANSON [facility] LAB Z86.19 [id number] 05/28/2017 20:25:00 05/29/2017 15:00:00 DIS Inpatient RIVERA RICKEYA K [facility] 4TH ENCEPHALITIS, FEVER [id number] 02/16/2017 10:01:00 02/16/2017 16:43:00 DIS Emergency CORBY MCKEEDAPHNEYA K [facility] ER SOA,MUCUS [id number] 02/06/2017 10:33:00 02/06/2017 23:59:59 CLS Preadmit DEGRAFFEMICHAEL CHRISTIANSON [facility] RAD BREAST TENDERNESS IN FEMALE [id number] 01/25/2017 10:33:00 01/25/2017 23:59:59 CLS Outpatient DEGRAFFENREID-MICHAEL DOMINGUEZ L [facility] RAD THYROID NODULE E04.1 [id number] 10/31/2016 13:03:00 10/31/2016 23:59:59 CLS Preadmit DEGRAFFENRNICOD-MICHAEL DOMINGUEZ L [facility] RAD M41.9 [id number] 10/11/2016 12:08:00 10/11/2016 23:59:59 CLS Outpatient DEGRAFFENREID-MICHAEL DOMINGUEZ L [facility] RAD THYROID NODULE E07.1 [id number] 10/05/2016 13:51:00 10/05/2016 23:59:59 CLS Outpatient DEGRAFFENREID-MICHAEL DOMINGUEZ L [facility] RAD M41.9 [id number] 08/25/2016 07:23:00 08/25/2016 10:15:00 DIS Outpatient MELANIE ACOSTA DO [facility] ENDO BLOOD IN STOOL [id number] 08/22/2016 05:42:00 08/22/2016 11:05:00 DIS Outpatient MELANIE ACOSTA DO [facility] PREOP BLOOD IN STOOL [id number] 08/06/2016 14:00:00 08/06/2016 17:39:00 DIS Emergency OWEN ADORNO [facility] ER R SIDE PAIN/BACK PAIN [id number] 08/10/2013 11:41:00 08/10/2013 13:36:00 DIS Emergency MACIEJ BLEVINS APRN [facility] ER SWOLLEN GLAND FEVER BODY ACHES [id number] 07/15/2013 15:17:00 Document Registration [id number] 03/14/2018 15:00:00 03/14/2018 23:59:59 CLS Outpatient DEGFFETOMASA MICHAEL DOMINGUEZ [facility] [id number] 07/11/2017 11:40:00 Document Registration [id number] 05/16/2017 14:00:00 Document Registration [id number] 03/03/2017 14:00:00 Document Registration
[2018-04-29] MEDS ORDERED: AUGMENTIN 875 MG TAB (AMOXICILLIN/CLAVULANATE) PO STA (20:37)
[2018-04-29] MEDS ORDERED: KETOROLAC 60 MG/2 ML VIAL IM STA (20:37)
[2018-04-29] MEDS ORDERED: AMOX-358 PO (20:45)
[2018-04-29] MEDS ORDERED: predniSONE 20 MG TAB PO ONE (20:45)
[2018-04-29] MEDS ORDERED: PRD20T PO (20:45)
--- NOTE | 2018-04-29 20:45 | ED Headache ---
General Chief Complaint: Head/Cervical Problems Stated Complaint: PAIN IN HEAD,NECK Nursing Triage Note: pt c/o neck pain and stiffness since and a frontal GUTIERREZ since yesterday. pt reports the pain radiates down neck, shoulders, and back bilaterally. pt states she had the same symptoms 1 month ago and her PCP gave her tramadol and a steroid and the pain/stiffness gradually subsided. Nursing Sepsis Screen: No Definite Risk Source: patient, family Exam Limitations: no limitations History of Present Illness Date Seen by Provider: Apr 29, 2018 Time Seen by Provider: 20:24 Initial Comments Here with report of frontal headache it's been going on for several days. Also has pain that radiates over her scalp and down the lateral aspect of her neck. Point tender to the base of the school lateral aspect at muscle attachment. Had similar symptoms a month ago when he got a steroid shot and antibiotics and was better. Does have chronic sinus problems. No fever or vomiting. She is trying Tylenol/Advil/tramadol in different combinations and that is not helping the pain. Eating and drinking okay. Timing/Duration: 1 week, increasing Severity/Quality: moderate, pressure Location: frontal Prior Headaches/Recent Trauma: occasional headaches Modifying Factors: improves with medication, improves with rest Associated Symptoms: No confusion, No fatigue, No fever/chills; nasal congestion, sinus infection; No stiff neck, No vision changes Allergies and Home Medications Allergies Coded Allergies: promethazine (Verified Allergy, Unknown, 04/29/18) Home Medications Diazepam 5 Mg Tablet, 5 MG PO TID PRN for ANXIETY, (Reported) Escitalopram Oxalate 20 Mg Tablet, 20 MG PO HS, (Reported) Lisinopril 10 Mg Tablet, 10 MG PO HS, (Reported) Patient Home Medication List Home Medication List Reviewed: Yes Review of Systems Review of Systems Constitutional: see HPI; No chills, No fever Ears, Nose, Mouth, Throat: see HPI Respiratory: No cough, No short of breath Cardiovascular: no symptoms reported Gastrointestinal: no symptoms reported Musculoskeletal: see HPI, muscle pain; No muscle stiffness Skin: no symptoms reported Past Tcmhuho-Stewbu-Cgosfu Hx Past Med/Social Hx: Reviewed Nursing Past Med/Soc Hx Patient Social History Alcohol Use: Denies Use Recreational Drug Use: No 2nd Hand Smoke Exposure: No Recent Foreign Travel: No Contact w/Someone Who Travel: No Recent Infectious Disease Expo: No Recent Hopitalizations: No Immunizations Up To Date Tetanus Booster (TDap): Unknown PED Vaccines UTD: Yes Seasonal Allergies Seasonal Allergies: No Past Medical History Surgeries: Yes (divated septum sx, hemorrhoidectomy) Gallbladder, Hysterectomy, Oophorectomy, Tonsillectomy Respiratory: No Cardiac: Yes Hypertension Neurological: No 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 Disorders: No 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 Sexually Transmitted Disease: No HIV/AIDS: No Genitourinary: No Gastrointestinal: Yes Hemorrhoids, Chronic Diarrhea, C-Diff Musculoskeletal: Yes Chronic Back Pain Endocrine: Yes (THYROID NODULES) HEENT: No Cancer: No Psychosocial: Yes Anxiety, Depression Integumentary: No Blood Disorders: No (ramos mt spotted fever, derian padron) Adverse Reaction/Blood Tranf: No Family Medical History Reviewed Nursing Family Hx Arthritis 19 MOTHER Cardiovascular disease 19 MOTHER MATERNAL GRANDFATHER Myocardial infarction MATERNAL GRANDFATHER ( FROM [place]) MATERNAL UNCLE (3 HEART ATTACKS) Neoplasm MATERNAL AUNT (BREAST CANCER) personal h/o RMSF approximately 4-5 years ago. Physical Exam Vital Signs Vital Signs - First Documented 04/29/18 19:05 Temp 98.2 Pulse 84 Resp 20 B/P (MAP) 147/82 (103) Pulse Ox 99 O2 Delivery Room Air Capillary Refill : Less Than 3 Seconds Height, Weight, BMI Height: 5'4.00" Weight: 170lbs. 4.0oz. 77.010466vv; 29.2 BMI Method:Stated General Appearance: WD/WN, no apparent distress HEENT: PERRL/EOMI, pharyngeal erythema, other (bilateral nasal congestion with moderate erythema. Mild tenderness to the frontal sinuses) Neck: full range of motion, supple; No lymphadenopathy (R), No lymphadenopathy (L); tender lateral; No tender midline Cardiovascular: regular rate, rhythm, no murmur Respiratory: lungs clear, normal breath sounds Back: normal inspection, no CVA tenderness, no vertebral tenderness Psychiatric: alert, oriented x 3 Crainal Nerves: normal hearing, normal speech, PERRL Skin: normal color, warm/dry Progress/Results/Core Measures Results/Orders Micro Results Microbiology 04/29/18 Influenza Types A,B Antigen ([place]) - Final, Complete My Orders Orders - JOE PINTO MD Influenza A And B Antigens (04/29/18 20:17) Prednisone Tablet (Deltasone Tablet) (04/29/18 20:45) Ketorolac Injection (Toradol Injection) (04/29/18 20:37) Amoxicillin/Clavulanate Tablet (Augmenti (04/29/18 20:37) Vital Signs/I&O 04/29/18 19:05 Temp 98.2 Pulse 84 Resp 20 B/P (MAP) 147/82 (103) Pulse Ox 99 O2 Delivery Room Air Blood Pressure Mean: 103 Progress Progress Note : Progress Note Seen and evaluated. Influenza screen done and is negative. We did discuss options for further evaluation including CT scan to evaluate for sinusitis. At this point she is afebrile and is not showing signs of meningitis. She does have muscle tension type pain as well as frontal tenderness with findings consistent with sinusitis. She would like to forego CT scan at this point if possible. We will initiate treatment for sinusitis with both steroids and Augmentin. Prednisone 40 mg by mouth and Augmentin 875 mg by mouth ordered. We will give Toradol 60 mg IM. Patient will continue this outpatient and return here on Monday for recheck and further evaluation if not improving. Both she and her were comfortable with this plan. Discharged home with return precautions. Patient verbalize understanding instructions and agreement with plan. Departure Impression Primary Impression: Acute frontal sinusitis Qualified Codes: J01.10 - Acute frontal sinusitis, unspecified Additional Impression: Muscle tension headache Disposition: HOME, SELF-CARE Condition: Stable Departure-Patient Inst. Decision time for Depature: 20:44 Referrals: ANDREW MURRELL MD (PCP) Primary Care Physician OWEN OCASIO (Family) Primary Care Physician Patient Instructions: Sinus Headache (DC), Sinusitis, Adult (DC), Tension Headache (DC) Add. Discharge Instructions: All discharge instructions reviewed with patient and/or family. Voiced understanding. You may use Afrin nasal spray or the generic, 12 hour relief, 2 sprays to each nostril twice daily for 3 days only and then stop. Do not use for more than 3 days. You may take Tylenol/acetaminophen 1000 mg every 8 hours as needed for pain. You may take ibuprofen 800 mg every 8 hours as needed for pain. Drink plenty of fluids. Take medications as directed. Return here on Monday morning for recheck and further evaluation not improved. Return earlier for worse pain, fever, vomiting, vision or balance problems, weakness or other concerns as needed. Follow-up with your doctor this week for recheck as needed. You may take probiotic daily per package directions to help decrease risk of infection and GI upset related to the antibiotics. Scripts Prednisone (Prednisone) 20 Mg Tab 40 MG PO DAILY, #8 TAB 0 Refills Prov: JOE PINTO MD 04/29/18 Amoxicillin/Potassium Clav (Augmentin 875-125 Tablet) 1 Each Tablet 1 EACH PO BID, #19 TAB 0 Refills Prov: JOE PINTO MD 04/29/18 Copy Copies To 1: OWEN OCASIO TIMOTHY D MD Apr 29, 2018 20:45
[2018-04-29] MEDS ORDERED: morphine INJ 10 MG/ML 1ML (SYR OR VIAL) IM STA (21:33)
[2018-04-29 21:51] VITALS: BP 136/84
== END 2018-04-29 21:51 | disposition home or self-care (01) ==
LOC: EDUNIT# 18:51 → ER 18:52
DX: J01.10 Acute frontal sinusitis, unspecified (principal); G44.209 Tension-type headache, unspecified, not intractable; I10 Essential (primary) hypertension; F41.9 Anxiety disorder, unspecified; F32.9 Major depressive disorder, single episode, unspecified; Z82.49 Family history of ischemic heart disease and other diseases of the circulatory system; Z80.3 Family history of malignant neoplasm of breast; Z87.19 Personal history of other diseases of the digestive system; Z88.8 Allergy status to other drugs, medicaments and biological substances; Z90.710 Acquired absence of both cervix and uterus; Z98.890 Other specified postprocedural states; Z90.89 Acquired absence of other organs
CPT/HCPCS: 87804

== ENCOUNTER → 2018-05-15 | Outpatient (CLI) | payer BC ==
[~2018-05-15] MED LIST changes: +AMOX-358 PO; +PRD20T PO
--- NOTE | 2018-05-15 14:24 | Diagnostic Imaging Report ---
INDICATION: Mid back pain. TECHNIQUE: Multiplanar, multisequence imaging of the thoracic spine was performed without contrast. FINDINGS: There is right convexity thoracic scoliotic curvature. The vertebral body heights are maintained. The marrow signal intensity is unremarkable. No geographic marrow lesion or acute compression fracture is seen. There are occasional benign hemangiolipomas. There is mild mid thoracic degenerative disc disease with mild disc space narrowing and desiccation. However, no focal disc protrusion is seen. No central canal or neural foraminal stenosis is identified. Thoracic cord does show normal homogeneous signal intensity and normal morphology. IMPRESSION: Thoracic scoliosis and mild mid thoracic spondylosis. No focal disc protrusion, central canal or neural frontal stenosis is identified. Dictated by: Dictated on workstation # [id number]
== END ==
LOC: RAD 12:56
DX: M47.814 Spondylosis without myelopathy or radiculopathy, thoracic region (principal); M41.84 Other forms of scoliosis, thoracic region
CPT/HCPCS: 72146

== ENCOUNTER → 2018-07-24 | Outpatient (CLI) | payer BC ==
--- NOTE | 2018-07-24 15:41 | Diagnostic Imaging Report ---
PROCEDURE: US Thyroid. TECHNIQUE: Multiple real-time grayscale images were obtained of the thyroid in various projections. INDICATION: Thyroid nodule. COMPARISON: Correlation is made with prior thyroid ultrasound from 01/17/2018. FINDINGS: Right lobe of the thyroid measures 4.7 x 2.2 x 1.5 cm and the left lobe measures 3.6 x 1.4 x 1.5 cm. Isthmus is 3 mm in thickness. Tiny nodule in the left lobe of the thyroid is noted measuring approximately 3 mm in size. Right lobe contains a tiny nodule inferiorly measuring approximately 4 mm x 6 mm. This was not definitely seen on prior exam. Tiny cyst in the right lobe noted previously is not seen on today's study. IMPRESSION: Subcentimeter thyroid nodules, as described. Continued followup in six months is recommended to show continued stability. Dictated by: Dictated on workstation # [id number]
--- NOTE | 2018-07-24 18:58 | Diagnostic Imaging Report ---
PROCEDURE: US Non-ob pelvis comp/trans. TECHNIQUE: Multiple realtime grayscale images were obtained of the pelvis in various projections endovaginally. Transabdominal imaging was also performed. INDICATION: Hysterectomy 14 years ago. Patient complains of pelvic pain and abdominal pain. COMPARISON: Comparison is made with pelvic ultrasound from 01/17/2018. FINDINGS: The uterus is surgically absent. Left ovary is surgically absent. Right ovary measures 2.1 x 2.0 x 1.6 cm. A tiny cyst right ovary is noted measuring approximately 9 mm x 7 mm. There is blood flow to the right ovary. No adnexal mass or free fluid is seen. IMPRESSION: Surgically absent uterus and left ovary. There is a tiny cyst involving the right ovary. The study is otherwise unremarkable. Dictated by: Dictated on workstation # [id number]
== END ==
LOC: RAD 14:02
PROVIDERS: ATTEND Physician Assistant
DX: E04.2 Nontoxic multinodular goiter (principal); R10.2 Pelvic and perineal pain; Z87.42 Personal history of other diseases of the female genital tract; Z90.721 Acquired absence of ovaries, unilateral; Z90.710 Acquired absence of both cervix and uterus
CPT/HCPCS: 76536; 76830; 76856

== ENCOUNTER → 2018-08-28 | Outpatient (CLI) | payer BC ==
--- NOTE | 2018-08-28 14:14 | Diagnostic Imaging Report ---
INDICATION: Bilateral hand pain. TIME OF EXAM: 12:00 p.m. FINDINGS: Multiple views of bilateral hands were obtained. Metacarpals appear intact. Phalanges are intact. The joint spaces are maintained. No fractures are seen. Carpal bones are unremarkable. IMPRESSION: Unremarkable bilateral hand radiographs. Dictated by: Dictated on workstation # [id number]
--- NOTE | 2018-08-28 15:32 | Diagnostic Imaging Report ---
INDICATION: Bilateral foot pain. TIME OF EXAMINATION: 12:05 PM. TECHNIQUE: Multiple views of the bilateral feet were obtained. FINDINGS: The metatarsals are unremarkable. No periosteal reaction or stress reaction is seen. The phalanges are unremarkable. The midfoot and hindfoot are unremarkable bilaterally. No fractures are identified. IMPRESSION: No acute bony abnormality is detected. Dictated by: Dictated on workstation # [id number]
== END ==
LOC: RAD 11:23
PROVIDERS: ATTEND Physician Assistant
DX: M79.671 Pain in right foot (principal); M79.672 Pain in left foot; M79.641 Pain in right hand; M79.642 Pain in left hand

== ENCOUNTER → 2018-09-05 | Outpatient (CLI) | payer BC ==
[~2018-09-05] MED LIST changes: +GADOBUTROL 7.5 MMOL/7.5 ML (GADAVIST) VIAL IV ONE
--- NOTE | 2018-09-05 14:34 | Diagnostic Imaging Report ---
PROCEDURE: MR imaging of the brain with and without contrast. TECHNIQUE: Multiplanar, multisequence MR imaging of the brain was performed with and without contrast. INDICATION: Headaches. COMPARISON: Comparison is made with prior MRI of the brain from 05/29/2017. FINDINGS: Parallel configuration of the lateral ventricles is again seen. 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 No ventricular dilatation is seen. There is no acute intra-axial or extra-axial hemorrhage. No diffusion restriction is seen. Previously noted probable venous angioma of the right cerebellar hemisphere is similar to prior exam. Sella and parasellar structures are unremarkable. Normal expected flow-voids within the carotid siphons are seen. No new region of contrast enhancement is identified. IMPRESSION: Overall stable MRI of the brain with and without contrast when compared with exam from 05/29/2017. No acute feature is detected. Dictated by: Dictated on workstation # [id number]
== END ==
LOC: RAD 13:10
PROVIDERS: ATTEND Physician Assistant
DX: R51 Headache (principal)
CPT/HCPCS: 70553

== ENCOUNTER → 2018-12-10 | Outpatient (CLI) | payer BC ==
[~2018-12-10] MED LIST changes: -GADOBUTROL 7.5 MMOL/7.5 ML (GADAVIST) VIAL IV ONE; -TIZA4TAB3 PO; +TIZA4TAB4 PO
--- NOTE | 2018-12-11 13:29 | Diagnostic Imaging Report ---
INDICATION: Routine screening. COMPARISON: 09/14/2017 and 08/11/2015. TECHNIQUE: 2D and 3D bilateral screening mammography was performed with CAD. FINDINGS: Both breasts are heterogeneously dense, limiting the sensitivity of mammography. The circumscribed density in the medial left breast is again noted and has been shown to represent a cyst. No new mass or malignant appearing microcalcifications are seen. Occasional benign calcifications are noted. The axillae are unremarkable. IMPRESSION: No mammographic features suspicious for malignancy are identified. ACR BI-RADS Category 2: Benign findings. Result letter will be mailed to the patient. Note: At least 10% of breast cancer is not imaged by mammography. Dictated by: Dictated on workstation # [id number]
== END ==
LOC: RAD 14:23
PROVIDERS: ATTEND Physician Assistant
DX: Z12.31 Encounter for screening mammogram for malignant neoplasm of breast (principal)
CPT/HCPCS: 77067

== ENCOUNTER 2019-01-10 05:41 | Outpatient (CLI) | payer BC ==
[~2019-01-10] VITALS: Ht 167 cm; Wt 70.4 kg
[2019-01-10] MEDS ORDERED: VILA20TA PO (14:37)
== END 2019-01-10 14:50 | disposition home or self-care (01) ==
LOC: PREOP 05:41
PROVIDERS: ATTEND Surgery
DX: Z01.818 Encounter for other preprocedural examination (principal)

== ENCOUNTER → 2019-01-22 | Outpatient (CLI) | payer BC ==
[~2019-01-22] MED LIST changes: +VILA20TA PO
--- NOTE | 2019-01-22 14:32 | Diagnostic Imaging Report ---
INDICATION: Osteoporosis, postmenopausal state. COMPARISON: 09/14/2017 FINDINGS: AP Spine L1-L4: [BMD (g/cm2): 0.969] [T-Score: -1.9] [Z-Score: -2.0] [BMD Previous: 0.938] [BMD % Change: 3.3] LT Hip Neck: [BMD (g/cm2): 0.848] [T-Score: -1.4] [Z-Score: -0.9] LT Hip Total: [BMD (g/cm2):0.880] [T-Score:-1.0] [Z-Score: -0.8] [BMD Previous: 0.907] [BMD % Change: -3.0] RT Hip Neck: [BMD (g/cm2):0.828] [T-Score:-1.5] [Z-Score:-1.1] RT Hip Total: [BMD (g/cm2):0.905] [T-score:-0.8] [Z-Score:-0.6] [BMD Previous:0.915] [BMD % Change:-1.1] *Indicates significant change from prior examination based on 95% confidence level. World Health Organization criteria for BMD interpretation classify patients as Normal (T-score at or above -1.0), Osteopenic (T-score between -1.0 and -2.5) or Osteoporotic (T-score at or below -2.5). LIMITATIONS AND MODIFICATION: None. FRACTURE RISK (FRAX SCORE): The ten year probability of (%): Major Osteoporotic Fracture: [2.7] Hip Fracture: [0.3] IMPRESSION: 1. Osteopenia (Low bone mass). 2. No significant change in bone mineral density since prior examination. 3. See below National Osteoporosis Foundation guidelines on when to potentially initiate pharmacologic therapy. Based on the National Osteoporosis Foundation Guidelines, pharmacologic treatment should be initiated in any of the following, unless clinical conditions suggest otherwise: * Any patient with prior fragility fracture of the hip or vertebrae. A spine fracture indicates 5X risk for subsequent spine fracture and 2X risk for subsequent hip fracture. * Osteoporosis (T-score <-2.5). * Postmenopausal women and men age 50 and older with low bone mass/osteopenia (T-score between -1.0 and -2.5) by DXA and 10-year major osteoporotic fracture greater than 20% or a 10-year probability of hip fracture greater than 3%. These fracture risks are supplied above in the FRAX score, if applicable. * Clinician judgement and/or patient preferences may indicate treatment for people with 10-year fracture probabilities above or below these levels. Dictated by: Dictated on workstation # [id number]
--- NOTE | 2019-01-22 16:22 | Diagnostic Imaging Report ---
PROCEDURE: US Thyroid. TECHNIQUE: Multiple Real-time grayscale images were obtained of the thyroid in various projections. INDICATION: Followup bilateral thyroid nodules. COMPARISON: 07/24/2018. FINDINGS: The right lobe measures 4.8 x 1.6 x 2 cm. There is a hypoechoic nodule inferiorly measuring 6 x 4 x 3 mm. This is oval and well marginated. The left lobe measures 4.7 x 1.4 x 2 cm. There is a hypoechoic nodule measuring 4 x 3 x 2 mm which is ill-defined. Vascular imaging shows no hypervascularity. The isthmus is normal. IMPRESSION: Bilateral small hypoechoic thyroid nodules as described. TI-RADS 3: Continued surveillance is recommended. Dictated by: Dictated on workstation # [id number]
== END ==
LOC: RAD 11:16
PROVIDERS: ATTEND Physician Assistant
DX: E04.2 Nontoxic multinodular goiter (principal); M85.89 Other specified disorders of bone density and structure, multiple sites; M81.0 Age-related osteoporosis without current pathological fracture; E55.9 Vitamin D deficiency, unspecified; Z78.0 Asymptomatic menopausal state
CPT/HCPCS: 76536; 77080

== ENCOUNTER → 2019-01-22 | Outpatient (CLI) | payer BC | LOC: LAB 11:23 | PROVIDERS: ATTEND Surgery | DX: Z01.89 Encounter for other specified special examinations (principal); Z86.19 Personal history of other infectious and parasitic diseases ==

== ENCOUNTER → 2019-03-14 | Outpatient (CLI) | payer BC ==
[~2019-03-14] MED LIST changes: -DIAZ5TAB3 PO; +DIAZ5TAB49 PO; -IBUP-2055 PO; +IBUP-2473 PO
[2019-03-14 15:58] LABS: BASOPHILS % (AUTO) 1 % (0-10); EOSINOPHILS % (AUTO) 1 % (0-10); HEMATOCRIT 39 % (35-52); HEMOGLOBIN 13.3 G/DL (11.5-16.0); LYMPHOCYTES # (AUTO) 1.5 X 10^3 (1.0-4.0); LYMPHOCYTES % (AUTO) 33 % (12-44); MEAN CORPUSCULAR HEMOGLOBIN 30 PG (25-34); MEAN CORPUSCULAR HGB CONC 34 G/DL (32-36); MEAN CORPUSCULAR VOLUME 89 FL (80-99); MONOCYTES # (AUTO) 0.4 X 10^3 (0.0-1.0); MONOCYTES % (AUTO) 8 % (0-12); NEUTROPHILS # (AUTO) 2.6 X 10^3 (1.8-7.8); NEUTROPHILS % (AUTO) 57 % (42-75); PLATELET COUNT 212 10^3/uL (130-400); RED CELL DISTRIBUTION WIDTH 12.8 % (10.0-14.5); WHITE BLOOD COUNT 4.6 10^3/uL (4.3-11.0)
--- NOTE | 2019-03-14 16:07 | Diagnostic Imaging Report ---
INDICATION: Acute onset abdominal pain TECHNIQUE: Multiple real-time verde scale sonographic images of the abdomen. CORRELATION STUDY: None FINDINGS: LIVER: Normal echotexture within the visualized portions of the liver. There is normal, hepatopedal direction of flow within the main portal vein. Liver length 14.4 cm. GALLBLADDER: Cholecystectomy. COMMON BILE DUCT: Obscured by overlying bowel gas. PANCREAS: Largely obscured. SPLEEN: Unremarkable. ABDOMINAL AORTA: Unremarkable. INFERIOR VENA CAVA: Patent. RIGHT KIDNEY: 10.1 x 5.6 x 4.9 cm. Unremarkable. LEFT KIDNEY: 9.7 x 4.8 x 6.7 cm. Unremarkable. OTHER: None. IMPRESSION: 1. Relatively limited abdominal ultrasound evaluation with large number of the abdominal structures obscured by overlying bowel gas. Postcholecystectomy changes. No acute abnormality in the areas visualized. Dictated by: Dictated on workstation # [id number]
[2019-03-14 16:23] LABS: ALANINE AMINOTRANSFERASE 20 U/L (0-55); ALBUMIN 4.7 GM/DL (3.2-4.5); ALKALINE PHOSPHATASE 50 U/L (40-136); AMYLASE 54 U/L (25-125); BILIRUBIN,TOTAL 0.4 MG/DL (0.1-1.0); BUN/CREATININE RATIO 9; CALCIUM 9.2 MG/DL (8.5-10.1); CARBON DIOXIDE 27 MMOL/L (21-32); CHLORIDE 107 MMOL/L (98-107); GFR ESTIMATED > 60; GLUCOSE 82 MG/DL (70-105); LIPASE 9 U/L (8-78); POTASSIUM 3.9 MMOL/L (3.6-5.0); SODIUM 142 MMOL/L (135-145); TOTAL PROTEIN 7.2 GM/DL (6.4-8.2)
== END ==
LOC: LAB 14:22
PROVIDERS: ATTEND Nurse Practitioner
DX: R10.11 Right upper quadrant pain (principal)
CPT/HCPCS: 36415; 76700; 80053; 82150; 83690; 85025

== ENCOUNTER → 2019-03-22 | Outpatient (CLI) | payer BC ==
[~2019-03-22] MED LIST changes: +BARIUM for suspension 96% w/w (Vanilla Silq Medium Density) PO ONE
--- NOTE | 2019-03-22 11:49 | Diagnostic Imaging Report ---
INDICATION: Weight loss, nausea and vomiting. Preliminary radiograph of the abdomen is unremarkable. Bowel gas pattern is unremarkable. There appears to be normal progression of contrast through the small bowel. Small bowel is nondilated. The mucosal fold pattern is unremarkable. No obstruction is identified. Images of the terminal ileum are unremarkable. IMPRESSION: Unremarkable small bowel follow-through. Dictated by: Dictated on workstation # [id number]
== END ==
LOC: RAD 07:46
PROVIDERS: ATTEND Surgery
DX: R63.4 Abnormal weight loss (principal); R11.2 Nausea with vomiting, unspecified
CPT/HCPCS: 74250

== ENCOUNTER → 2019-07-24 | Outpatient (CLI) | payer BC ==
[~2019-07-24] MED LIST changes: +ACHD5005 PO; -BARIUM for suspension 96% w/w (Vanilla Silq Medium Density) PO ONE; -HYDR-3812 PO
[2019-07-24 13:18] LABS: BASOPHILS % (AUTO) 0 % (0-10); EOSINOPHILS % (AUTO) 0 % (0-10); HEMATOCRIT 38 % (35-52); HEMOGLOBIN 13.2 G/DL (11.5-16.0); LYMPHOCYTES # (AUTO) 0.8 X 10^3 (1.0-4.0); LYMPHOCYTES % (AUTO) 9 % (12-44); MEAN CORPUSCULAR HEMOGLOBIN 31 PG (25-34); MEAN CORPUSCULAR HGB CONC 35 G/DL (32-36); MEAN CORPUSCULAR VOLUME 89 FL (80-99); MEAN PLATELET VOLUME 11.5 FL (7.4-10.4); MONOCYTES # (AUTO) 0.3 X 10^3 (0.0-1.0); MONOCYTES % (AUTO) 3 % (0-12); NEUTROPHILS % (AUTO) 88 % (42-75); PLATELET COUNT 182 10^3/uL (130-400); RED CELL DISTRIBUTION WIDTH 12.5 % (10.0-14.5); WHITE BLOOD COUNT 9.1 10^3/uL (4.3-11.0)
[2019-07-24 13:22] LABS: BILIRUBIN,URINE NEGATIVE (NEGATIVE); CLARITY,URINE CLEAR; COLOR,URINE YELLOW; GLUCOSE, URINE (UA) NEGATIVE (NEGATIVE); KETONES,URINE NEGATIVE (NEGATIVE); LEUKOCYTE ESTERASE ,URINE NEGATIVE (NEGATIVE); NITRITE,URINE NEGATIVE (NEGATIVE); PROTEIN,URINE NEGATIVE (NEGATIVE)
[2019-07-24 13:30] LABS: ALBUMIN 4.5 GM/DL (3.2-4.5); BACTERIA,URINE FEW /HPF; CHLORIDE 107 MMOL/L (98-107); SODIUM 137 MMOL/L (135-145); SQUAMOUS EPITHELIAL CELL,UR 0-2 /HPF
[2019-07-24 13:31] LABS: CALCIUM 8.6 MG/DL (8.5-10.1)
[2019-07-24 13:32] LABS: GLUCOSE 117 MG/DL (70-105)
[2019-07-24 13:33] LABS: CARBON DIOXIDE 22 MMOL/L (21-32)
[2019-07-24 13:34] LABS: BILIRUBIN,TOTAL 0.4 MG/DL (0.1-1.0)
[2019-07-24 13:36] LABS: ALKALINE PHOSPHATASE 59 U/L (40-136); CREATININE SERUM 0.83 MG/DL (0.60-1.30); GFR ESTIMATED > 60
[2019-07-24 13:37] LABS: BUN/CREATININE RATIO 13
[2019-07-24 13:39] LABS: ALANINE AMINOTRANSFERASE 18 U/L (0-55)
[2019-07-24 13:59] LABS: LYMPHOCYTES % (MANUAL) 10 %; MONOCYTES % (MANUAL) 1 %; NEUTROPHILS % (MANUAL) 89 %; RBC MORPH NORMAL
[2019-07-24 14:05] LABS: ERYTHROCYTE SEDIMENTATION RATE 4 MM/HR (0-20)
== END ==
LOC: LAB 12:49
PROVIDERS: ATTEND Physician Assistant
DX: R50.9 Fever, unspecified (principal); R51 Headache; R53.83 Other fatigue; Z20.828 Contact with and (suspected) exposure to other viral communicable diseases
CPT/HCPCS: 36415; 80053; 81000; 85007; 85027; 85652; 86141; 87430; 87635; 87804

== ENCOUNTER → 2019-12-20 | Outpatient (CLI) | payer BC ==
--- NOTE | 2019-12-23 09:33 | Diagnostic Imaging Report ---
INDICATION: Routine screening. Comparison is made to prior mammogram 12/10/2018 and 09/14/2017. 2-D and 3-D bilateral screening mammography was performed with CAD. Both breasts are heterogeneously dense, limiting the sensitivity of mammography. Previously noted circumscribed nodule medial left breast has decreased in size. No new mass or malignant appearing microcalcifications are seen. Axillae are unremarkable. IMPRESSION: BI-RADS Category 2 No mammographic features suspicious for malignancy are identified. ACR BI-RADS Category 2: Benign findings. Result letter will be mailed to the patient. Note: At least 10% of breast cancer is not imaged by mammography. Dictated by: Dictated on workstation # [id number]
== END ==
LOC: RAD 13:30
PROVIDERS: ATTEND Physician Assistant
DX: Z12.31 Encounter for screening mammogram for malignant neoplasm of breast (principal)
CPT/HCPCS: 77063; 77067

== ENCOUNTER → 2020-02-04 | Outpatient (CLI) | payer BC ==
--- NOTE | 2020-02-04 15:29 | Diagnostic Imaging Report ---
INDICATION: Postmenopausal. COMPARISON: 01/22/2019. FINDINGS: The bone mineral density of the hips and spine was measured. The T-score for the spine is -1.3. On the prior exam, the T score was -1.9. The total T-score for the left hip is -0.9 and for the right hip -0.8. On the prior exam, the respective T-scores were -1.0 and -0.8. The T-score for the left hip is -1.6 and for the right hip -1.5. On the prior exam, the respective T-scores were -1.4 and -1.5. AP Spine L1-L4: [BMD (g/cm2): 1.043] [T-Score: -1.3] [Z-Score: -1.6] [BMD Previous: 0.969] [BMD % Change: 7.6] LT Hip Neck: [BMD (g/cm2): 0.821] [T-Score: -1.6] [Z-Score: -1.3] LT Hip Total: [BMD (g/cm2):0.890] [T-Score:-0.9] [Z-Score: -0.9] [BMD Previous: 0.880] [BMD % Change: 1.1] RT Hip Neck: [BMD (g/cm2):.825] [T-Score:-1.5] [Z-Score:-1.2] RT Hip Total: [BMD (g/cm2):0.902] [T-score:-0.8] [Z-Score:-0.8] [BMD Previous:0.905] [BMD % Change:-0.3] *Indicates significant change from prior examination based on 95% confidence level. World Health Organization criteria for BMD interpretation classify patients as Normal (T-score at or above -1.0), Osteopenic (T-score between -1.0 and -2.5) or Osteoporotic (T-score at or below -2.5). LIMITATIONS AND MODIFICATION: None. FRACTURE RISK (FRAX SCORE): The ten year probability of (%): Major Osteoporotic Fracture: [2.8] Hip Fracture: [0.3] IMPRESSION: 1. The bone mineral density of the spine has increased since the prior exam. The T-score value still indicates osteopenia, however. 2. The bone mineral density of the left hip is slightly greater than on the prior exam. The T-score for each hip is now at the low end of normal. 3. There has been a slight decrease in the bone mineral density of left femoral neck. The right femoral neck is unchanged. These values do indicate osteopenia. 4. See below National Osteoporosis Foundation guidelines on when to potentially initiate pharmacologic therapy. Based on the National Osteoporosis Foundation Guidelines, pharmacologic treatment should be initiated in any of the following, unless clinical conditions suggest otherwise: * Any patient with prior fragility fracture of the hip or vertebrae. A spine fracture indicates 5X risk for subsequent spine fracture and 2X risk for subsequent hip fracture. * Osteoporosis (T-score <-2.5). * Postmenopausal women and men age 50 and older with low bone mass/osteopenia (T-score between -1.0 and -2.5) by DXA and 10-year major osteoporotic fracture greater than 20% or a 10-year probability of hip fracture greater than 3%. These fracture risks are supplied above in the FRAX score, if applicable. * Clinician judgement and/or patient preferences may indicate treatment for people with 10-year fracture probabilities above or below these levels. Dictated by: Dictated on workstation # [id number]
== END ==
LOC: RAD 14:08
PROVIDERS: ATTEND Physician Assistant
DX: M85.88 Other specified disorders of bone density and structure, other site (principal); Z78.0 Asymptomatic menopausal state
CPT/HCPCS: 77080

== ENCOUNTER → 2020-03-02 | Outpatient (CLI) | payer BC ==
[2020-03-02 13:37] LABS: HEMOGLOBIN 12.4 g/dL (11.5-16.0); MEAN PLATELET VOLUME 11.1 fL (9.0-12.2); WHITE BLOOD COUNT 5.9 10^3/uL (4.3-11.0)
[2020-03-02 13:59] LABS: ALANINE AMINOTRANSFERASE 17 U/L (0-55); ALBUMIN 4.2 GM/DL (3.2-4.5); ALKALINE PHOSPHATASE 40 U/L (40-136); BILIRUBIN,TOTAL 0.3 MG/DL (0.1-1.0); BUN/CREATININE RATIO 18; CALCIUM 8.7 MG/DL (8.5-10.1); CARBON DIOXIDE 25 MMOL/L (21-32); CHLORIDE 106 MMOL/L (98-107); CHOLESTEROL 153 MG/DL (< 200); CREATININE SERUM 0.66 MG/DL (0.60-1.30); GFR ESTIMATED > 60; GLUCOSE 89 MG/DL (70-105); HDL CHOLESTEROL 49 MG/DL (40-60); POTASSIUM 3.8 MMOL/L (3.6-5.0); SODIUM 138 MMOL/L (135-145); TOTAL PROTEIN 6.6 GM/DL (6.4-8.2); TRIGLYCERIDES 95 MG/DL (<150); VLDL CHOLESTEROL 19 MG/DL (5-40)
[2020-03-02 14:20] LABS: FREE T4 (FREE THYROXINE) 0.92 NG/DL (0.70-1.48)
--- NOTE | 2020-03-02 14:39 | Diagnostic Imaging Report ---
PROCEDURE: US Thyroid. TECHNIQUE: Multiple real-time grayscale images were obtained of the thyroid in various projections. INDICATION: Thyroid nodules. The prior thyroid ultrasound exam of 01/22/2019 noted small hypoechoic nodules in each lobe of the thyroid. Those findings are again evident on this study and do not appear to have changed significantly. The 6 x 3 x 4 mm hypoechoic nodule in the right lobe is no different and the ill-defined 4 x 3 x 2 mm hypoechoic area in the left lobe now measures 3 x 2 x 3 mm. The thyroid gland itself is not enlarged with the right lobe measuring 5.4 x 1.6 x 1.8 cm and the left lobe estimated to be 4.3 x 1.2 x 1.6 cm (normal gland size 4-5 x 2 x 2 cm or less). IMPRESSION: The subcentimeter nodules in each lobe of the thyroid seen previously are again evident and do not appear to have changed adversely. The overall appearance of the thyroid gland itself is otherwise stable. Dictated by: Dictated on workstation # [id number]
== END ==
LOC: RAD 13:00
PROVIDERS: ATTEND Physician Assistant
DX: Z00.00 Encounter for general adult medical examination without abnormal findings (principal); E04.2 Nontoxic multinodular goiter; I10 Essential (primary) hypertension
CPT/HCPCS: 36415; 76536; 80053; 80061; 82306; 84439; 84443; 85027

== ENCOUNTER → 2020-05-13 | Outpatient (CLI) | payer BC ==
[~2020-05-13] MED LIST changes: +ESCI20TA39 PO; -ESCI20TA45 PO; -LISI10TA2 PO; +LISI10TA25 PO
--- NOTE | 2020-05-13 09:20 | Diagnostic Imaging Report ---
Right ankle at 9:11. Indication: Fell, ankle pain 3 views were obtained. There are no prior studies available for comparison. There is no fracture, dislocation or acute bony abnormality evident. The ankle mortise is not widened and the talar dome is smooth. There is mild soft tissue edema over the lateral malleolus. Impression: There is no evidence for an acute bony abnormality. Dictated by: Dictated on workstation # [id number]
[2020-05-13 09:21] LABS: HEMOGLOBIN 13.8 g/dL (11.5-16.0); MEAN PLATELET VOLUME 11.7 fL (9.0-12.2); WHITE BLOOD COUNT 6.3 10^3/uL (4.3-11.0)
[2020-05-13 09:23] LABS: BILIRUBIN,URINE NEGATIVE (NEGATIVE); CLARITY,URINE CLEAR; COLOR,URINE YELLOW; GLUCOSE, URINE (UA) NEGATIVE (NEGATIVE); KETONES,URINE NEGATIVE (NEGATIVE); LEUKOCYTE ESTERASE ,URINE NEGATIVE (NEGATIVE); NITRITE,URINE NEGATIVE (NEGATIVE); PROTEIN,URINE NEGATIVE (NEGATIVE)
--- NOTE | 2020-05-13 09:27 | Diagnostic Imaging Report ---
Erect abdomen at 9:09. Indication 10 pound weight loss and diarrhea. There is some gas in both large and small bowel. The amount of bowel gas present is perhaps somewhat greater than noted on the prior exam of 03/22/2019. There are few air-fluid levels present. These are nonspecific. These could be secondary to a mild ileus. The possibility that there is a partial or intermittent small bowel obstruction would be less likely but should still be considered. If further study is desired, the contrast small bowel exam would be recommended. The previous contrast small bowel exam of 03/22/2019 was unremarkable. There is no mass or organomegaly identified and there is no sign of a pneumoperitoneum.. There are a few calcifications low in the pelvis. These are most likely phleboliths. The osseous structures are intact. As noted on the prior exam there is mild levoscoliosis of the lumbar spine. IMPRESSION: 1. There are a few air-fluid levels present. These are nonspecific however. Considerations and recommendations as above. 2. There is no acute abnormality noted otherwise. Dictated by: Dictated on workstation # [id number]
[2020-05-13 09:40] LABS: ALANINE AMINOTRANSFERASE 26 U/L (0-55); ALBUMIN 4.3 GM/DL (3.2-4.5); ALKALINE PHOSPHATASE 50 U/L (40-136); BILIRUBIN,TOTAL 0.7 MG/DL (0.1-1.0); BUN/CREATININE RATIO 7; CALCIUM 8.8 MG/DL (8.5-10.1); CARBON DIOXIDE 27 MMOL/L (21-32); CHLORIDE 103 MMOL/L (98-107); CREATININE SERUM 0.71 MG/DL (0.60-1.30); GFR ESTIMATED > 60; GLUCOSE 98 MG/DL (70-105); SODIUM 140 MMOL/L (135-145); TOTAL PROTEIN 6.9 GM/DL (6.4-8.2)
[2020-05-13 09:59] LABS: BACTERIA,URINE FEW /HPF; WBC,URINE 0-2 /HPF
== END ==
LOC: RAD 08:56
PROVIDERS: ATTEND Physician Assistant
DX: M25.571 Pain in right ankle and joints of right foot (principal); R10.9 Unspecified abdominal pain; R63.4 Abnormal weight loss; R19.7 Diarrhea, unspecified; R14.0 Abdominal distension (gaseous)
CPT/HCPCS: 36415; 73610; 74019; 80053; 81000; 85027; 85652; 86141

== ENCOUNTER → 2020-05-25 | Outpatient (CLI) | payer BC ==
[~2020-05-25] MED LIST changes: +BARIUM for suspension 96% w/w (Vanilla Silq Medium Density) PO ONE
--- NOTE | 2020-05-25 16:16 | Diagnostic Imaging Report ---
INDICATION: Bloating, cramping and diarrhea. Preliminary radiograph of the abdomen was obtained. Bowel gas pattern is unremarkable. There are surgical clips right upper quadrant. Initial image demonstrates contrast within the stomach with prompt passage of contrast into the small bowel loops. Contrast appears to reach the right colon at the 2 hour 15 minute destiney. No small bowel obstruction is seen. Small bowel is normal caliber. Fold pattern is unremarkable. IMPRESSION: Unremarkable small bowel study. Dictated by: Dictated on workstation # [id number]
== END ==
LOC: RAD 08:00
PROVIDERS: ATTEND Physician Assistant
DX: R10.84 Generalized abdominal pain (principal); R14.0 Abdominal distension (gaseous); R19.7 Diarrhea, unspecified; R11.0 Nausea; Z98.890 Other specified postprocedural states
CPT/HCPCS: 74250

== ENCOUNTER 2020-06-25 05:41 | Outpatient (CLI) | payer BC ==
[~2020-06-25] VITALS: Ht 162.6 cm; Wt 73.0 kg
[~2020-06-25 05:41] MED LIST changes: -BARIUM for suspension 96% w/w (Vanilla Silq Medium Density) PO ONE
[2020-06-26] MEDS ORDERED: LISI1TAB29 PO (12:07)
[2020-07-01] MEDS ORDERED: ACHD5005 PO (13:28)
== END 2020-06-26 12:25 | disposition home or self-care (01) ==
LOC: PREOP 05:41
PROVIDERS: ATTEND Surgery
DX: Z01.818 Encounter for other preprocedural examination (principal)

== ENCOUNTER 2020-07-01 11:26 | Day surgery (SDC) | payer BC ==
[~2020-07-01] VITALS: Ht 162.6 cm; Wt 73.0 kg
[2020-07-01] VITALS (10 sets, daily range): BP systolic 118–165; BP diastolic 71–102
[~2020-07-01 11:26] MED LIST changes: +LISI1TAB29 PO
[2020-07-01] MEDS ORDERED: LACTATED RINGERS 1,000 ML IV PRN (11:45)
[2020-07-01] MEDS ORDERED: ceFAZolin INJECTION 1,000 MG in WATER (STERILE) FOR INJECTION 10 ML IV ONE (11:45)
[2020-07-01] MEDS ORDERED: LIDOCAINE/EPI 1%-1:100,000 (XYLOCAINE) 20ML ONE (11:49)
--- NOTE | 2020-07-01 11:52 | Progress Note-Pre Operative ---
Pre-Operative Progress Note H&P Reviewed The H&P was reviewed, patient examined and no changes noted. Time Seen by Provider: 11:48 Date H&P Reviewed: July 01, 2020 Time H&P Reviewed: 11:49 Pre-Operative Diagnosis: lipoma x 3, left flank; site marked by pt and conf MELANIE Brooks DO July 01, 2020 11:52
[2020-07-01] MEDS ORDERED: fentaNYL INJ 100 MCG/2 ML AMP ONE (12:01)
[2020-07-01] MEDS ORDERED: proPOfol 200 MG/20 ML (DIPRIVAN) VIAL IV ONE (12:01)
[2020-07-01] MEDS ORDERED: LIDOCAINE PF 2% 5 ML (XYLOCAINE) VIAL ONE (12:01)
[2020-07-01] MEDS ORDERED: SEVOFLURANE (ULTANE) 15 ML INHAL SOLN ONE (12:01)
[2020-07-01] MEDS ORDERED: ONDANSETRON 4 MG/2 ML (SDV) Z0FRAN ONE (12:01)
[2020-07-01] MEDS ORDERED: MIDAZOLAM 2 MG/2 ML (VERSED) VIAL ONE (12:02)
[2020-07-01] MEDS ORDERED: GLYCOPYRROLATE 0.2 MG/ML (ROBINUL) 2 ML VIAL ONE (13:10)
[2020-07-01] MEDS ORDERED: ACHD5005 PO (13:28)
--- NOTE | 2020-07-01 13:28 | Progress Note-Post Operative ---
Post-Operative Progess Note Surgeon (s)/Veneer Drier Feeder (s) Surgeon MELANIE ACOSTA DO Veneer Drier Feeder: NONE Pre-Operative Diagnosis lipoma x 3, left flank; site marked by pt and confirmed Post-Operative Diagnosis Same pending scotty Procedure & Operative Findings Date of Procedure 07/01/20 Procedure Performed/Findings Exc of 3 masses 3.3cm, 2.4 cm and 3.1 cm down to fascia and ribs Anesthesia Type LMA Estimated Blood Loss Estimated blood loss (mL): scant Specimens/Packing Specimens Removed 3 masses sent to MELANIE Ordaz DO July 01, 2020 13:28
--- NOTE | 2020-07-01 13:29 | Discharge Inst-Surgical ---
Discharge Inst-Surgical Depart Medication/Instructions New, Converted or Re-Newed RX: RX Given to Pt/Family Patient Instructions Follow up Appt: Make appointment for 1 week. [phone] Instructions: No lifting greater than 20 pounds. No strenuous activity. May shower in 24 hours, no tub bath or soaking. Use incentive spirometer at home as directed. No Smoking Skin/Wound Care: May remove bandages in am. You need to leave the Dermabond on incision it will fall off on it's own. Symptoms to Report: Appetite Changes, Extremity Discoloration, Numbness/Tingling, Swelling Increased, Bleeding Excessive, Eyesight Changes, Pain Increased, Urine Color Change, Constipation(Persistent), Fever over 101 degree F, Pain/Pressure in chest, Urinating Difficulty, Cough Up/Vomit Blood, Heart Beat Irreg/Pounding, Pain/Pressure in jaw, Cramps in feet or legs, Lightheadedness, Pain/Pressure in shoulder, Diarrhea(Persistent), Memory Changes Suddenly, Questions/Concerns, Weight gain consecutive days, Dizziness/Fainting, Nausea/Vomiting, Shortness of Breath, Weight gain over 2 pounds If questions or concerns contact your physician Or seek help at emergency department. Activity Activity as Tolerated: Yes Activity Instructions: Avoid Stress to Incision Driving Instructions: No Driving/Refer to Dr. Reynolds Discharge Diet: No Restrictions Diet After 24 Hours: Clear Liquid if Nauseous If Any Problems/Questions/Issu: Contact Your Physician, Go to Emergency Room Skin/Wound Care Infection Signs and Symptoms: Increased Redness, Foul Odor of Wound, Increased Drainage, Skin Itchy or Has a Rash, Increased Swelling, Temperature Above 101 F Bathing Instructions: Shower Stitches/Dereck/Dermabond Dis: MELANIE Gonsalves DO July 01, 2020 13:29
[2020-07-01] MEDS ORDERED: HYDROmorphone 2 MG/ML VIAL (DILAUDID) IV ONE (13:30)
[2020-07-01] MEDS ORDERED: ONDANSETRON 4 MG/2 ML (SDV) Z0FRAN IVP PRN (13:30)
--- NOTE | 2020-07-01 13:32 | Anesthesia-General Post-Op ---
General Patient Condition Mental Status/LOC: Same as Preop Cardiovascular: Satisfactory Nausea/Vomiting: Absent Respiratory: Satisfactory Pain: Controlled Complications: Absent Post Op Complications Complications None Follow Up Care/Instructions Patient Instructions None needed. Anesthesia/Patient Condition Patient Condition Patient is doing well, no complaints, stable vital signs, no apparent adverse anesthesia problems. No complications reported per nursing. D/C home per [facility] [place] Criteria: Yes BONNIE ROGERS CRNA July 01, 2020 13:32
--- NOTE | 2020-07-02 01:35 | OPERATIVE REPORT ---
DATE OF SERVICE: PREOPERATIVE DIAGNOSIS: Three masses, left flank/upper abdomen or chest. POSTOPERATIVE DIAGNOSIS: Three masses, left flank/upper abdomen or chest, pending pathology. PROCEDURE: Excision of three masses. There was one medial, which is 3.4 cm; one superior, which was 2.4 cm; and one lateral that was 3.1 cm. These were all down on top of the fascia and bone. SURGEON: Malachi Jimenez DO YARN CONDITIONER: None. ANESTHESIA: LMA. BLOOD LOSS: Scant. FLUIDS: Per anesthesia. POSTOPERATIVE CONDITION: Stable. INDICATION FOR PROCEDURE: The patient is a 44-year-old female who has been having some pain, can feel some masses right almost on the ribs, flank area. She wanted to get these removed. FINDINGS: The patient had three masses. They looked like they are mostly lipomas, the medial one was 3.3 cm, the superior one 2.4 and the lateral one 3.1 and they are all down on top of the fascia and muscle. PROCEDURE NOTE: After informed consent was obtained, the patient was brought to the operating room, placed on the operating table in supine position. She was sterilely prepped and draped in normal fashion. She had previously marked all three spots. I was able to palpate them in the OR and elected to make the first incision medially this incision was about 2.5 cm long, carried down through the skin into subcutaneous tissue, then deepened to subcutaneous tissue with blunt dissection, able to see what looked like a lipoma, grasp this and then started pulling this out. When I got all of it out, it was about 3.3 cm, able to feel the superior and lateral one, made an incision laterally, which was about 1.8 cm and then able to pull both the superior and lateral masses through. They also both looked like lipomas. Both of them were down on top of the ribs and fascia. Superior one, we were able to get out 2.4 cm long portion of tissue and the lateral one was about 3.1 cm and laid out. Once these were removed, copiously irrigated with normal saline and then a 22 mL of local lidocaine with epinephrine was placed and then closed the two incisions with first from the medial one with 3 interrupted 4-0 undyed Monocryl subcuticular stitches and lateral one was closed with two interrupted 4-0 undyed Monocryl subcuticular stitches. Area was cleaned and dried and Dermabond was placed. The patient tolerated the procedure. She was transferred to recovery room in stable condition. Sponge, instrument and needle count correct at the end of the case. Job ID: [id number] DocumentID: [id number] Dictated Date: 07/01/2020 13:24:37 Manager Corporate Responsibility Date: 07/01/2020 20:31:58 Dictated By: MALACHI JIMENEZ DO
== END 2020-07-01 15:15 | disposition home or self-care (01) ==
LOC: SDC 11:26
PROVIDERS: ATTEND Surgery
DX: R22.2 Localized swelling, mass and lump, trunk (principal); I10 Essential (primary) hypertension; F41.9 Anxiety disorder, unspecified; Z79.899 Other long term (current) drug therapy; Z20.822 Contact with and (suspected) exposure to COVID-19
CPT/HCPCS: 87081; 88304

== ENCOUNTER → 2020-07-22 | Outpatient (CLI) | payer BC ==
--- NOTE | 2020-07-22 12:07 | Diagnostic Imaging Report ---
Indication: Fall with left wrist injury and pain AP, oblique and lateral views of the left wrist are obtained. FINDINGS: No acute fracture or dislocation is identified. No abnormal lytic or sclerotic focus is seen, and there is no radiopaque foreign body. IMPRESSION: No acute abnormality. Dictated by: Dictated on workstation # [id number]
== END ==
LOC: RAD 11:15
PROVIDERS: ATTEND Physician Assistant
DX: S69.92XA Unspecified injury of left wrist, hand and finger(s), initial encounter (principal); W19.XXXA Unspecified fall, initial encounter
CPT/HCPCS: 73110

== ENCOUNTER → 2020-08-11 | Outpatient (CLI) | payer BC ==
[2020-08-11 10:39] LABS: HEMATOCRIT 39 % (35-52); HEMOGLOBIN 12.9 g/dL (11.5-16.0); MEAN CORPUSCULAR HEMOGLOBIN 31 pg (25-34); MEAN CORPUSCULAR HGB CONC 33 g/dL (32-36); MEAN CORPUSCULAR VOLUME 93 fL (80-99); MEAN PLATELET VOLUME 11.5 fL (9.0-12.2); PLATELET COUNT 174 10^3/uL (130-400)
[2020-08-11 10:45] LABS: ALBUMIN 4.1 GM/DL (3.2-4.5); CHLORIDE 108 MMOL/L (98-107); POTASSIUM 4.2 MMOL/L (3.6-5.0); SODIUM 140 MMOL/L (135-145)
[2020-08-11 10:47] LABS: CALCIUM 8.4 MG/DL (8.5-10.1)
[2020-08-11 10:48] LABS: GLUCOSE 92 MG/DL (70-105); TOTAL PROTEIN 6.7 GM/DL (6.4-8.2)
[2020-08-11 10:49] LABS: CARBON DIOXIDE 24 MMOL/L (21-32)
[2020-08-11 10:50] LABS: BILIRUBIN,TOTAL 0.9 MG/DL (0.1-1.0)
[2020-08-11 10:51] LABS: ALKALINE PHOSPHATASE 52 U/L (40-136); CREATININE SERUM 0.67 MG/DL (0.60-1.30); GFR ESTIMATED > 60
[2020-08-11 10:53] LABS: BUN/CREATININE RATIO 12
[2020-08-11 10:54] LABS: ALANINE AMINOTRANSFERASE 15 U/L (0-55)
--- NOTE | 2020-08-11 11:04 | Diagnostic Imaging Report ---
EXAMINATION: Chest, frontal and lateral views INDICATION: Palpitations and tachycardia. COMPARISON: 02/16/2017 FINDINGS: The lungs are clear and the pulmonary vasculature is normal. No pneumothorax or pleural effusion. Heart size and mediastinal contours are normal and unchanged. No acute osseous abnormality is identified. There is unchanged mild dextroscoliosis of the thoracic spine. Surgical clips are demonstrated in the right upper abdominal quadrant. IMPRESSION: No radiographic evidence of acute chest disease. No significant change from prior. Dictated by: Dictated on workstation # [id number]
== END ==
LOC: CARD 10:30
PROVIDERS: ATTEND Physician Assistant
DX: R00.2 Palpitations (principal); R00.0 Tachycardia, unspecified
CPT/HCPCS: 36415; 71046; 80053; 84443; 84484; 85027; 93005

== ENCOUNTER → 2020-10-05 | Outpatient (CLI) | payer BC ==
[~2020-10-05] MED LIST changes: -RIZA5TAB28 PO; +RIZA5TAB30 PO
[2020-10-05 10:34] VITALS: BP 121/82
--- NOTE | 2020-10-05 11:36 | Cardiology Stress Test Report ---
Stress Test Report Date of Procedure/Referring: Date of Procedure: Oct 05, 2020 PCP Christin Zhao Admitting Physician Art Valderrama MD Indications: CP Baseline Heart Rate: 68 Baseline Blood Pressure: Blood Pressure Systolic: 121 Blood Pressure Diastolic: 82 Baseline EKG: Baseline EKG: NSR Summary/Conclusion: Summary: In summary, the patient started exercising with a baseline heart rate, blood pressure and EKG mentioned above Patient was able to exercise for a total of 10.30minutes on Flaco protocol, METs 12.1 Maximum heart rate 161 Maximum blood pressure 190/72 Stress EKG, Minimal nondiagnostic changes Recovery EKG , Return to baseline Conclusion: 1. Good exercise tolerance for a total of 10.30 minutes on Flaco protocol, 12.6 METs, achieving 91 percent of maximum expected heart rate 2. Minimal nondiagnostic EKG changes with exercise returned to baseline during recovery 3. No arrhythmia was noted ENGRO RICE MD Oct 05, 2020 11:36
== END ==
LOC: CARD 09:42
PROVIDERS: ATTEND Physician Assistant
DX: R07.9 Chest pain, unspecified (principal); I10 Essential (primary) hypertension
CPT/HCPCS: 93017; 93306

== ENCOUNTER → 2020-12-22 | Outpatient (CLI) | payer BC ==
[~2020-12-22] MED LIST changes: -DOXY100C2; +DOXY100C5
--- NOTE | 2020-12-22 13:12 | Diagnostic Imaging Report ---
INDICATION: Routine screening. COMPARISON: 12/20/2019 and 12/10/2018. TECHNIQUE: 2D and 3D bilateral screening mammography was performed with CAD. FINDINGS: Scattered fibroglandular densities are identified bilaterally. The parenchymal pattern is stable. No dominant mass or malignant-appearing microcalcifications are seen. The axillae are unremarkable. IMPRESSION: No mammographic features suspicious for malignancy are identified. ACR BI-RADS Category 1: Negative. Result letter will be mailed to the patient. Note: At least 10% of breast cancer is not imaged by mammography. Dictated by: Dictated on workstation # [id number]
== END ==
LOC: RAD 11:23
PROVIDERS: ATTEND Physician Assistant
DX: Z12.31 Encounter for screening mammogram for malignant neoplasm of breast (principal)
CPT/HCPCS: 77063; 77067

== ENCOUNTER → 2021-04-13 | Outpatient (CLI) | payer BC ==
[~2021-04-13] MED LIST changes: -LISI1TAB29 PO; +LISI1TAB44 PO; +RIZA5TAB28 PO; -RIZA5TAB30 PO; +TIZA-186 PO; -TIZA4TAB4 PO
--- NOTE | 2021-04-13 12:13 | Diagnostic Imaging Report ---
PROCEDURE: US Thyroid. TECHNIQUE: Multiple real-time grayscale images were obtained of the thyroid in various projections. INDICATION: Follow-up thyroid nodule. COMPARISON: 03/02/2020. FINDINGS: The right lobe measures 5.3 x 1.2 x 1.6 cm. The left lobe measures 4.2 x 1.2 x 1.8 cm. Isthmus is 3 mm. The 6 x 3 x 4 mm nodule noted previously on the right which is very slightly hypoechoic and somewhat ill defined has not changed in appearance. There is no calcification. The 4 x 3 x 2 mm hypoechoic ill-defined nodule in the left lobe measures 5 x 3 x 3 mm and is also ill defined and slightly hypoechoic. No calcification. No new nodules are seen. IMPRESSION: Bilateral thyroid nodules, subcentimeter, showing no significant overall change. These are considered low probability for malignancy. TI-RADS 3. Dictated by: Dictated on workstation # [id number]
== END ==
LOC: RAD 10:00
PROVIDERS: ATTEND Internal Medicine
DX: E04.1 Nontoxic single thyroid nodule (principal)
CPT/HCPCS: 76536

== ENCOUNTER → 2021-10-07 | Outpatient (CLI) | payer BC ==
[~2021-10-07] MED LIST changes: -FLUC150T2; +FLUC150T41
--- NOTE | 2021-10-07 16:51 | Diagnostic Imaging Report ---
INDICATION: RT HIP PAIN COMPARISON: None. FINDINGS: 2 views of the right hip were obtained and show no fractures, dislocations, or other acute bony abnormalities. Joint spaces are well maintained throughout. The soft tissues appear unremarkable. No unexpected radiopaque foreign bodies are identified. IMPRESSION: Unremarkable radiographic exam of the right hip. Dictated by: Dictated on workstation # [id number]
== END ==
LOC: RAD 13:47
PROVIDERS: ATTEND Physician Assistant
DX: M25.551 Pain in right hip (principal)
CPT/HCPCS: 73502

== ENCOUNTER → 2021-10-15 | Outpatient (CLI) | payer BC ==
--- NOTE | 2021-10-15 15:17 | Diagnostic Imaging Report ---
PROCEDURE: MRI right joint lower extremity without contrast. TECHNIQUE: Multiplanar, multisequence non contrast-enhanced MRI of the right lower extremity was accomplished. INDICATION: Chronic right hip pain, no known injury. COMPARISON: Radiographs from 10/07/2021. FINDINGS: No acute fracture is seen in the pelvis or the right hip. Alignment appears normal. There is a small 1.4 cm lesion at the lateral left humeral neck which appears to have internal T1 hyperintensity, may represent a synovial herniation pit, perhaps with hemorrhagic components, or a liposclerosing myxofibrous tumor. There is no significant joint effusion. Joint spaces appear preserved. The right acetabular labrum is suboptimally evaluated but no tear is seen. There is no paralabral cyst. The right iliopsoas tendon is intact. The right gluteus medius and minimus tendons are intact. The right hamstring tendon origin is intact. No bursitis is seen. There is mild tendinopathy of the contralateral left hamstring tendon origin with mild edema seen in the left quadratus femoris. No other muscular edema or atrophy is seen. No free fluid is seen in the pelvis. No masses or lymphadenopathy are seen. IMPRESSION: 1. No acute abnormality is seen in the right hip. 2. Mild tendinopathy of the contralateral left hamstring origin with findings suggestive of ischiofemoral impingement. Dictated by: Dictated on workstation # [id number]
== END ==
LOC: RAD 12:30
PROVIDERS: ATTEND Nurse Practitioner Family
DX: M67.952 Unspecified disorder of synovium and tendon, left thigh (principal); M25.551 Pain in right hip; G89.29 Other chronic pain
CPT/HCPCS: 73721

== ENCOUNTER → 2021-10-18 | Outpatient (CLI) | payer BC | LOC: PREOP 05:31 | PROVIDERS: ATTEND Surgery | DX: Z01.818 Encounter for other preprocedural examination (principal); R22.42 Localized swelling, mass and lump, left lower limb; R22.2 Localized swelling, mass and lump, trunk ==

== ENCOUNTER → 2021-12-20 | Outpatient (RCR) | payer BC | END | disposition home or self-care (01) | PROVIDERS: ATTEND Physician Assistant | DX: M25.551 Pain in right hip (principal); M25.552 Pain in left hip; M79.7 Fibromyalgia; M54.2 Cervicalgia; M54.50 Low back pain, unspecified; I10 Essential (primary) hypertension; K21.9 Gastro-esophageal reflux disease without esophagitis ==

== ENCOUNTER → 2021-12-28 | Outpatient (CLI) | payer BC ==
--- NOTE | 2021-12-29 13:01 | Diagnostic Imaging Report ---
EXAMINATION: 3D bilateral screening mammogram with CAD. INDICATION: Screening. COMPARISON: This study was compared to the prior exams of 12/22/2020, 12/20/2019, and 12/10/2018. PERSONAL HISTORY: At this time, there are no current complaints. FINDINGS: The fibroglandular tissue in both breasts is heterogeneously dense. This does limit the sensitivity of this exam. In the midportion of the left breast directly behind the nipple, there is a 6 mm rounded asymmetry. There was a similar-appearing but larger finding in this region on the prior exam of 12/10/2018. Consequently, I suspect this is a small cyst. There is no primary or secondary sign of malignancy noted. IMPRESSION: There is no evidence of malignancy. ACR BI-RADS Category 1: Negative. Result letter will be mailed to the patient. Note: At least 10% of breast cancer is not imaged by mammography. Dictated by: Dictated on workstation # [id number]
== END ==
LOC: RAD 12:58
PROVIDERS: ATTEND Physician Assistant
DX: Z12.31 Encounter for screening mammogram for malignant neoplasm of breast (principal)
CPT/HCPCS: 77063; 77067

== ENCOUNTER → 2022-01-19 | Outpatient (RCR) | payer BC | END | disposition home or self-care (01) | PROVIDERS: ATTEND Physician Assistant | DX: M25.551 Pain in right hip (principal); M25.552 Pain in left hip; M79.7 Fibromyalgia; M54.2 Cervicalgia; M54.50 Low back pain, unspecified; I10 Essential (primary) hypertension; K21.9 Gastro-esophageal reflux disease without esophagitis; M71.9 Bursopathy, unspecified ==

== ENCOUNTER → 2022-01-19 | Outpatient (CLI) | payer BC ==
--- NOTE | 2022-01-19 17:24 | Diagnostic Imaging Report ---
CLINICAL INDICATIONS: Patient with swelling in the right antecubital fossa region. EXAM: Focused ultrasound of the right antecubital region. COMPARISON: None. FINDINGS AND IMPRESSION: There is no significant abnormality seen on this exam. There is no soft tissue mass or fluid collection seen in the right antecubital fossa region. Dictated by: Dictated on workstation # [id number]
--- NOTE | 2022-01-19 17:25 | Diagnostic Imaging Report ---
CLINICAL INDICATION: Patient with swelling in the left antecubital fossa region. EXAM: Focused ultrasound of the left antecubital region. COMPARISON: None. FINDINGS AND IMPRESSION: There is no soft tissue mass or fluid collection seen in the left antecubital fossa region. There is no significant abnormality seen. Dictated by: Dictated on workstation # [id number]
== END ==
LOC: RAD 14:15
PROVIDERS: ATTEND Physician Assistant
DX: R22.33 Localized swelling, mass and lump, upper limb, bilateral (principal)
CPT/HCPCS: 76881

== ENCOUNTER → 2022-01-21 | Outpatient (CLI) | payer BC ==
[2022-01-21 15:48] LABS: BASOPHILS # (AUTO) 0.1 10^3/uL (0.0-0.1); BASOPHILS % (AUTO) 1 % (0-10); EOSINOPHILS % (AUTO) 1 % (0-10); HEMATOCRIT 36 % (35-52); HEMOGLOBIN 12.1 g/dL (11.5-16.0); LYMPHOCYTES # (AUTO) 1.7 X 10^3 (1.0-4.0); LYMPHOCYTES % (AUTO) 27 % (12-44); MEAN CORPUSCULAR HEMOGLOBIN 31 pg (25-34); MEAN CORPUSCULAR HGB CONC 33 g/dL (32-36); MEAN CORPUSCULAR VOLUME 92 fL (80-99); MEAN PLATELET VOLUME 11.1 fL (9.0-12.2); MONOCYTES # (AUTO) 0.6 X 10^3 (0.0-1.0); MONOCYTES % (AUTO) 9 % (0-12); NEUTROPHILS # (AUTO) 4.1 X 10^3 (1.8-7.8); NEUTROPHILS % (AUTO) 63 % (42-75); PLATELET COUNT 216 10^3/uL (130-400); WHITE BLOOD COUNT 6.5 10^3/uL (4.3-11.0)
[2022-01-21 16:04] LABS: POTASSIUM 4.1 MMOL/L (3.6-5.0)
[2022-01-21 16:05] LABS: CALCIUM 8.5 MG/DL (8.5-10.1)
[2022-01-21 16:06] LABS: TOTAL PROTEIN 6.4 GM/DL (6.4-8.2)
[2022-01-21 16:08] LABS: BILIRUBIN,TOTAL 0.2 MG/DL (0.1-1.0)
[2022-01-21 16:10] LABS: CREATININE SERUM 0.67 MG/DL (0.60-1.30)
== END ==
LOC: LAB 15:29
PROVIDERS: ATTEND Internal Medicine Cardiovascular Disease
DX: R50.9 Fever, unspecified (principal); R53.83 Other fatigue; R53.81 Other malaise
CPT/HCPCS: 36415; 80053; 85025; 86141

== ENCOUNTER → 2022-01-28 | Outpatient (CLI) | payer BC ==
--- NOTE | 2022-01-28 15:17 | Diagnostic Imaging Report ---
INDICATION: Swelling, elbow pain. EXAMINATION: Left elbow MRI without contrast 01/28/2022. FINDINGS: The distal triceps tendon appears intact. Biceps and brachialis tendons intact. There is T2 hyperintensity throughout the origin of the extensor tendons consistent with tendinosis with a small partial intrasubstance tear not excluded. The common flexor tendon origin appears intact. Minimal edema suggests tendinosis. The nonopacified radial and ulnar collateral ligaments appear intact. There is no acute osseous abnormality. No significant joint effusion. IMPRESSION: 1. Tendinosis within the common flexor and extensor tendon origins. Remaining tendons unremarkable with no tendinous tears appreciated. 2. Intact appearance of the radial and ulnar collateral ligaments on this noncontrast examination. Dictated by: Dictated on workstation # [id number]
== END ==
LOC: RAD 13:15
PROVIDERS: ATTEND Physician Assistant
DX: M67.823 Other specified disorders of tendon, right elbow (principal); M79.89 Other specified soft tissue disorders
CPT/HCPCS: 73221

== ENCOUNTER 2022-02-08 10:50 | Outpatient (RCR) | payer BC | END 2022-02-19 | disposition home or self-care (01) | PROVIDERS: ATTEND Physician Assistant | DX: M79.7 Fibromyalgia (principal); M25.551 Pain in right hip; M25.552 Pain in left hip; M54.2 Cervicalgia; M54.50 Low back pain, unspecified; I10 Essential (primary) hypertension; K21.9 Gastro-esophageal reflux disease without esophagitis; M71.9 Bursopathy, unspecified ==

== ENCOUNTER 2022-03-15 15:00 | Outpatient (RCR) | payer BC | END 2022-03-22 | disposition home or self-care (01) | PROVIDERS: ATTEND Physician Assistant | DX: M79.7 Fibromyalgia (principal); M25.551 Pain in right hip; M25.552 Pain in left hip; M54.2 Cervicalgia; M54.50 Low back pain, unspecified; I10 Essential (primary) hypertension; K21.9 Gastro-esophageal reflux disease without esophagitis ==

== ENCOUNTER → 2022-04-19 | Outpatient (RCR) | payer BC | END | disposition home or self-care (01) | PROVIDERS: ATTEND Physician Assistant | DX: M79.7 Fibromyalgia (principal); M25.551 Pain in right hip; M25.552 Pain in left hip; M54.2 Cervicalgia; M54.50 Low back pain, unspecified; I10 Essential (primary) hypertension; K21.9 Gastro-esophageal reflux disease without esophagitis ==

== ENCOUNTER 2022-05-09 14:44 | Outpatient (RCR) | payer BC | END 2022-05-20 | disposition home or self-care (01) | PROVIDERS: ATTEND Physician Assistant | DX: M71.9 Bursopathy, unspecified (principal); M79.7 Fibromyalgia; M25.551 Pain in right hip; M25.552 Pain in left hip; M54.2 Cervicalgia; M54.50 Low back pain, unspecified; I10 Essential (primary) hypertension; K21.9 Gastro-esophageal reflux disease without esophagitis ==

== ENCOUNTER → 2022-12-20 | Outpatient (CLI) | payer BC ==
--- NOTE | 2022-12-20 10:57 | Diagnostic Imaging Report ---
PROCEDURE: MR imaging cervical spine without contrast. TECHNIQUE: Multiplanar, multisequence MR imaging of the cervical spine was performed without contrast. INDICATION: Neck pain with bilateral hand numbness. COMPARISON: None. FINDINGS: Reversal of normal cervical lordosis centered at C5. Vertebral body heights are preserved. Normal bone marrow signal. No abnormal signal in the cervical spinal cord. Visualized paravertebral soft tissues are unremarkable. Tiny central disc protrusions at C4-C5 and C5-C6 results in no spinal canal stenosis. Intervertebral discs are otherwise well-preserved. No significant facet arthropathy. No spinal canal, lateral recess or neural foraminal narrowing in the cervical spine. IMPRESSION: Mild spondylotic changes result in no high-grade neural impingement. No abnormal signal in the cervical cord. No acute osseous findings. Dictated by: Dictated on workstation # [id number]
--- NOTE | 2022-12-20 11:19 | Diagnostic Imaging Report ---
HISTORY: Nontoxic multinodular thyroid goiter. TECHNIQUE: Ultrasound of the thyroid. COMPARISON: 04/13/2021. FINDINGS: Right thyroid lobe: Size (cm): 5.3 x 1.6 x 1.0. Echotexture: Normal. Vascularity: Normal. Nodules: There is a subtle ill-defined hypoechoic nodule in the right mid thyroid which measures up to 7 mm in size. There is a cystic nodule in the superior right thyroid measuring 3 mm. No followup is indicated. Isthmus: Size (cm): 0.3. Nodules: None. Left thyroid lobe: Size (cm): 4.5 x 2.1 x 1.1. Echotexture: Normal. Vascularity: Normal. Nodules: There is an ill-defined hypoechoic nodule measuring 5 mm in the mid left thyroid which appears stable. IMPRESSION: Subcentimeter thyroid nodules do not qualify for followup based on TI-RADS criteria. Dictated by: Dictated on workstation # [id number]
--- NOTE | 2022-12-20 12:25 | Diagnostic Imaging Report ---
INDICATION: Asymptomatic post menopausal female COMPARISON: 02/04/2020 FINDINGS: AP Spine L1-L4: [BMD (g/cm2): 0.978] [T-Score: -1.8] [Z-Score: -2.1] [BMD Previous: 1.043] [BMD % Change: -6.2] LT Hip Neck: [BMD (g/cm2): 0.780] [T-Score: -1.9] [Z-Score: -1.4] LT Hip Total: [BMD (g/cm2):0.856] [T-Score:-1.2] [Z-Score: -1.1] [BMD Previous: 0.890] [BMD % Change: -3.8*] RT Hip Neck: [BMD (g/cm2):0.773] [T-Score:-1.9] [Z-Score:-1.5] RT Hip Total: [BMD (g/cm2):0.877] [T-score:-1.0] [Z-Score:-0.9] [BMD Previous:0.902] [BMD % Change:-2.8] *Indicates significant change from prior examination based on 95% confidence level. World Health Organization criteria for BMD interpretation classify patients as Normal (T-score at or above -1.0), Osteopenic (T-score between -1.0 and -2.5) or Osteoporotic (T-score at or below -2.5). LIMITATIONS AND MODIFICATION: None. FRACTURE RISK (FRAX SCORE): The ten year probability of (%): Major Osteoporotic Fracture: [3.9] Hip Fracture: [0.5] IMPRESSION: 1. Osteopenia (Low bone mass). 2. Bone mineral density has decreased by a statistically significant amount, as detailed above. 3. See below National Osteoporosis Foundation guidelines on when to potentially initiate pharmacologic therapy. Based on the National Osteoporosis Foundation Guidelines, pharmacologic treatment should be initiated in any of the following, unless clinical conditions suggest otherwise: * Any patient with prior fragility fracture of the hip or vertebrae. A spine fracture indicates 5X risk for subsequent spine fracture and 2X risk for subsequent hip fracture. * Osteoporosis (T-score <-2.5). * Postmenopausal women and men age 50 and older with low bone mass/osteopenia (T-score between -1.0 and -2.5) by DXA and 10-year major osteoporotic fracture greater than 20% or a 10-year probability of hip fracture greater than 3%. These fracture risks are supplied above in the FRAX score, if applicable. * Clinician judgement and/or patient preferences may indicate treatment for people with 10-year fracture probabilities above or below these levels. Dictated by: Dictated on workstation # [id number]
== END ==
LOC: RAD 08:04
PROVIDERS: ATTEND Physician Assistant
DX: E04.2 Nontoxic multinodular goiter (principal); M85.80 Other specified disorders of bone density and structure, unspecified site; M47.812 Spondylosis without myelopathy or radiculopathy, cervical region; Z78.0 Asymptomatic menopausal state
CPT/HCPCS: 72141; 76536; 77080

== ENCOUNTER → 2023-01-04 | Outpatient (CLI) | payer BC ==
--- NOTE | 2023-01-04 14:21 | Diagnostic Imaging Report ---
EXAMINATION: 3D bilateral screening mammogram with CAD. INDICATION: Screening. COMPARISON: This study was compared to the prior exams of 12/28/2021, 12/22/2020, and 12/20/2019. PERSONAL HISTORY: At this time, there are no current complaints. FINDINGS: The breasts are heterogenously dense which may obscure small masses. When compared to the previous study, there does not appear to have been any significant change. There is no primary or secondary sign of malignancy noted. IMPRESSION: There is no evidence for malignancy. ACR BI-RADS Category 1: Negative. Result letter will be mailed to the patient. Note: At least 10% of breast cancer is not imaged by mammography. Dictated by: Dictated on workstation # [id number]
== END ==
LOC: RAD 09:45
PROVIDERS: ATTEND Physician Assistant
DX: Z12.31 Encounter for screening mammogram for malignant neoplasm of breast (principal)
CPT/HCPCS: 77063; 77067